=== PATIENT | female | born 1935 | race Caucasian/White ===

== ENCOUNTER 2017-02-06 11:23 | Emergency (ER) | payer BC, OTHER ==
[~2017-02-06] VITALS: Ht 167.6 cm; Wt 81.3 kg
[~2017-02-06 11:23] MED LIST: ACET125T2; CALCTAB5 PO; CHOL2000 PO; IRBE1TAB50 PO; LZL/125 PO; METO100T14 PO; PLN/10 PO; PRED1SUS3 OPL; TRAZ50TA35 PO
[2017-02-06 11:26] VITALS: TEMP 36.4; Ht 167.6 cm; Wt 81.3 kg
[2017-02-06] MEDS ORDERED: CALC-354 PO (11:37)
[2017-02-06] MEDS ORDERED: IRBE1TAB50 PO (11:37)
[2017-02-06] MEDS ORDERED: CHOL20007 PO (11:37)
[2017-02-06] MEDS ORDERED: INDA1TAB3 PO (11:37)
[2017-02-06] MEDS ORDERED: PLN/10 PO (11:37)
[2017-02-06] MEDS ORDERED: ACET325T96 PO (11:37)
[2017-02-06] MEDS ORDERED: TRAZ50TA35 PO (11:37)
[2017-02-06] MEDS ORDERED: METO-596 PO (11:37)
[2017-02-06] MEDS ORDERED: SODIUM CHLORIDE 0.9% 1000ML 1,000 ML IV STA (11:51)
--- NOTE | 2017-02-06 12:15 | DIAGNOSTIC IMAGING REPORT ---
CHEST ONE VIEW PORTABLE CLINICAL HISTORY: 81 years-old Female presenting with CHEST PAIN. TECHNIQUE: Portable upright AP view of the chest was obtained. COMPARISON: None. FINDINGS: Atherosclerosis of aortic arch. Mild enlargement of the cardiac silhouette. Apparent bibasilar density likely relates to overlying soft tissue. No convincing evidence of a focal infiltrate. No large effusion or pneumothorax. Osseous structures normal. Upper abdomen normal. IMPRESSION: 1. Suggestion of mild cardiomegaly. No other evidence of acute cardiopulmonary disease. Electronically signed by: Abhilash Muro M.D. 02/06/2017 12:14 PM Dictated Date/Time: 02/06/2017 12:12 PM
[2017-02-06 12:18] VITALS: O2SAT 98
--- NOTE | 2017-02-06 12:28 | EMERGENCY ROOM VISIT NOTE ---
History Report prepared by Hero: Lucian Saldaña Under the Supervision of: Dr. Herson Castaneda M.D. First contact with patient: 11:46 Chief Complaint: HYPERTENSION Stated Complaint: TANNER, DIZZY, ELEVATED BP, LWR ABD. PAIN/DISCOMFORT History of Present Illness The patient is an 81 year old female who presents to the Emergency Room with complaints of constant hypertension for the past few days. The patient additionally states that she has a headache, light headedness, abdominal pain, and some urinary frequency. The patient denies any chest pain, cough fevers, chills, nausea, vomiting, urinary burning, chest pain, shortness of breath, congestion, and diarrhea. The patient states that she is not on any blood thinners, and she states that she has not missed any medications. The patient states that she has a history of hypertension. She states that when she stands up she gets a little dizzy, and years ago she was diagnosed with benign positional vertigo, though she did not take any medications for it. The patient states that she has been eating and drinking well recently. The patient denies any vaginal symptoms, and she states she has no history of UTIs. Source of History: patient Onset: a few days ago Position: other (global) Quality: other (hypertension) Timing: constant Associated Symptoms: + headache, + abdominal pain Note: Associated symptoms: light headedness and urinary frequency. Review of Systems See HPI for pertinent positives and negatives. A total of ten systems were reviewed and were otherwise negative. Past Medical & Surgical Medical Problems: (1) Bowel obstruction (2) HTN (hypertension) (3) Leaky heart valve Surgical Problems: (1) H/O laminectomy Family History Cancer Diabetes mellitus Hypertension Lung disease Social History Smoking Status: Never Smoker Housing Status: lives alone Occupation Status: retired Current/Historical Medications Scheduled Calcium Carbonate-Cholecalcife (Caltrate 600+D), 1 TAB PO QPM Cholecalciferol (Vitamin D3), 2,000 UNITS PO QAM Ciprofloxacin (Ciprofloxacin HCl), 1 TAB PO BID Felodipine (Felodipine ER), 10 MG PO QAM Indapamide (Lozol), 1.25 MG PO QAM Irbesartan (Irbesartan), 300 MG PO QAM Metoprolol Tartrate (Lopressor), 100 MG PO BID Metronidazole (Flagyl), 500 MG PO QID Trazodone Hcl (Trazodone), 50 MG PO HS Scheduled PRN Acetaminophen Tab (Tylenol), 325-650 MG PO DAILY PRN for ARTHRITIS Allergies Coded Allergies: Penicillins (Verified Allergy, Unknown, HIVES, 02/06/17) Physical Exam Vital Signs Date Time Temp Pulse Resp B/P (MAP) Pulse Ox O2 Delivery O2 Flow Rate FiO2 02/06/17 21:00 88 20 180/100 98 02/06/17 18:52 99 20 181/115 95 Room Air 02/06/17 17:52 91 20 182/102 97 Room Air 02/06/17 15:31 169/107 02/06/17 15:26 145/99 02/06/17 14:23 94 97 02/06/17 14:18 88 18 157/93 98 Room Air 02/06/17 14:01 157/93 02/06/17 13:53 88 21 93 02/06/17 13:31 159/95 02/06/17 13:01 158/91 02/06/17 12:53 88 19 95 02/06/17 12:51 88 18 146/96 98 Room Air 02/06/17 12:48 146/96 02/06/17 12:25 78 02/06/17 12:18 98 Room Air 02/06/17 11:26 36.4 101 24 210/118 94 Room Air Physical Exam GENERAL: Awake, alert, well-appearing, in no distress HENT: Mucous membranes. Normocephalic, atraumatic. Oropharynx unremarkable. EYES: Normal conjunctiva. Sclera non-icteric. NECK: Supple. No nuchal rigidity. FROM. No JVD. RESPIRATORY: Clear to auscultation. CARDIAC: Regular rate, normal rhythm. Extremities warm and well perfused. Pulses equal. ABDOMEN: Mild suprapubic tenderness and fullness. Soft, non-distended. No rebound or guarding. No masses. RECTAL: Deferred. MUSCULOSKELETAL: Chest examination reveals no tenderness. The back is symmetrical on inspection without obvious abnormality. There is no CVA tenderness to palpation. No joint edema. LOWER EXTREMITIES: Calves are equal size bilaterally and non-tender. No edema. No discoloration. NEURO: Cranial nerves 2-12 intact. Cerebellar including finger to nose and alternating palms are intact. Equivocal Romberg's. Normal sensorium. No sensory or motor deficits noted. SKIN: No rash or jaundice noted. Medical Decision & Procedures ER Provider Diagnostic Interpretation: Radiology results as stated below per my review and radiologist interpretation: CT HEAD WITHOUT CONTRAST (CT) CLINICAL HISTORY: headache/dizzy HYPERTENSION COMPARISON STUDY: No previous studies for comparison. TECHNIQUE: Axial CT of the brain is performed from the vertex to the skull base. IV contrast was not administered for this examination. A dose lowering technique was utilized adhering to the principles of ALARA. CT DOSE: 537.48 mGy.cm FINDINGS: No intra or extra-axial mass lesions are visualized. There is no CT evidence of acute cortical infarction. There is no evidence of midline shift. There is no acute hemorrhage. No calvarial fractures are visualized. There are moderate white matter hypodensities likely on a small vessel basis. There is no evidence of pathologic ventricular dilatation. There is no evidence of acute sinusitis IMPRESSION: No acute intracranial findings Electronically signed by: Herbert Sandoval M.D. 02/06/2017 12:44 PM Dictated Date/Time: 02/06/2017 12:43 PM CHEST ONE VIEW PORTABLE CLINICAL HISTORY: 81 years-old Female presenting with CHEST PAIN. TECHNIQUE: Portable upright AP view of the chest was obtained. COMPARISON: None. FINDINGS: Atherosclerosis of aortic arch. Mild enlargement of the cardiac silhouette. Apparent bibasilar density likely relates to overlying soft tissue. No convincing evidence of a focal infiltrate. No large effusion or pneumothorax. Osseous structures normal. Upper abdomen normal. IMPRESSION: 1. Suggestion of mild cardiomegaly. No other evidence of acute cardiopulmonary disease. Electronically signed by: Abhilash Muro M.D. 02/06/2017 12:14 PM Dictated Date/Time: 02/06/2017 12:12 PM ABD/PELVIS IV CONTRAST ONLY CT DOSE: 590.77 mGy.cm HISTORY: Pain Lower abd pain TECHNIQUE: Multiaxial CT images of the abdomen and pelvis were performed following the use of intravenous contrast. A dose lowering technique was utilized adhering to the principles of ALARA. COMPARISON STUDY: None. FINDINGS: Lung bases are clear. Liver is uniform in appearance. Gallbladder is negative for distention, although several small gallbladder polyps may be present.. Mild cortical scarring of the kidneys. No evidence renal mass or necrosis. Minimal hyperplastic change of the adrenal glands. Pancreas is uniform. Bowel pattern is consistent with that of a mild nonobstructive ileus within the abdomen. Within the pelvis there is evidence for wall thickening of the bulk of the sigmoid colon with mild pericolonic infiltrative change. This appearance is consistent with that of acute sigmoid diverticulitis. No evidence for abscess collection or obstruction. Mild chronic descending colonic diverticulosis. IMPRESSION: 1. Acute sigmoid diverticulitis. 2. Considerable colonic wall thickening, with no evidence for abscess collection or obstructive change. 3. Chronic descending colonic diverticulosis. 4. Mild reactive small bowel ileus. 5. Mild adenomyomatosis of the gallbladder The above report was generated using voice recognition software. It may contain grammatical, syntax or spelling errors. Electronically signed by: Wesley Sanchez M.D. 02/06/2017 4:23 PM Dictated Date/Time: 02/06/2017 4:19 PM Laboratory Results 02/06/17 12:13 Red Blood Count 4.72, Mean Corpuscular Volume 91.1, Mean Corpuscular Hemoglobin 31.8, Mean Corpuscular Hemoglobin Concent 34.9, Mean Platelet Volume 9.1, Neutrophils (%) (Auto) 75.7, Lymphocytes (%) (Auto) 10.9, Monocytes (%) (Auto) 11.2, Eosinophils (%) (Auto) 1.7, Basophils (%) (Auto) 0.3, Neutrophils # (Auto ) 10.00, Lymphocytes # (Auto) 1.44, Monocytes # (Auto) 1.48, Eosinophils # (Auto ) 0.23, Basophils # (Auto) 0.04 02/06/17 12:13 Test 02/06/17 12:13 02/06/17 12:25 White Blood Count 13.22 K/uL (4.8-10.8) Red Blood Count 4.72 M/uL (4.2-5.4) Hemoglobin 15.0 g/dL (12.0-16.0) Hematocrit 43.0 % (37-47) Mean Corpuscular Volume 91.1 fL (80-100) Mean Corpuscular Hemoglobin 31.8 pg (25-34) Mean Corpuscular Hemoglobin Concent 34.9 g/dl (32-36) Platelet Count 313 K/uL (130-400) Mean Platelet Volume 9.1 fL (7.4-10.4) Neutrophils (%) (Auto) 75.7 % Lymphocytes (%) (Auto) 10.9 % Monocytes (%) (Auto) 11.2 % Eosinophils (%) (Auto) 1.7 % Basophils (%) (Auto) 0.3 % Neutrophils # (Auto) 10.00 K/uL (1.4-6.5) Lymphocytes # (Auto) 1.44 K/uL (1.2-3.4) Monocytes # (Auto) 1.48 K/uL (0.11-0.59) Eosinophils # (Auto) 0.23 K/uL (0-0.5) Basophils # (Auto) 0.04 K/uL (0-0.2) RDW Standard Deviation 44.7 fL (36.4-46.3) RDW Coefficient of Variation 13.5 % (11.5-14.5) Immature Granulocyte % (Auto) 0.2 % Immature Granulocyte # (Auto) 0.03 K/uL (0.00-0.02) Anion Gap 6.0 mmol/L (3-11) Est Creatinine Clear Calc Drug Dose 49.1 ml/min Estimated GFR () 64.6 Estimated GFR (Non- 55.8 BUN/Creatinine Ratio 22.2 (10-20) Calcium Level 9.9 mg/dl (8.5-10.1) Total Bilirubin 0.5 mg/dl (0.2-1) Direct Bilirubin 0.1 mg/dl (0-0.2) Aspartate Amino Transf (AST/SGOT) 15 U/L (15-37) Alanine Aminotransferase (ALT/SGPT) 18 U/L (12-78) Alkaline Phosphatase 85 U/L (45-117) Troponin I < 0.015 ng/ml (0-0.045) Total Protein 7.4 gm/dl (6.4-8.2) Albumin 3.9 gm/dl (3.4-5.0) Lipase 159 U/L (73-393) Urine Color YELLOW Urine Appearance CLEAR (CLEAR) Urine pH 7.5 (4.5-7.5) Urine Specific [place] 1.011 (1.000-1.030) Urine Protein 2+ (NEG) Urine Glucose (UA) NEG (NEG) Urine Ketones NEG (NEG) Urine Occult Blood TRACE (NEG) Urine Nitrite NEG (NEG) Urine Bilirubin NEG (NEG) Urine Urobilinogen NEG (NEG) Urine Leukocyte Esterase TRACE (NEG) Urine WBC (Auto) 1-5 /hpf (0-5) Urine RBC (Auto) 0-4 /hpf (0-4) Urine Hyaline Casts (Auto) 1-5 /lpf (0-5) Urine Epithelial Cells (Auto) 5-10 /lpf (0-5) Urine Bacteria (Auto) NEG (NEG) Laboratory results reviewed by me Medications Administered Medications (Trade) Dose Ordered Sig/Luis Route Start Time Stop Time Status Last Admin Dose Admin Sodium Chloride 1,000 ml @ 999 mls/hr Q1H1M STAT IV 02/06/17 11:51 02/06/17 12:51 DC 02/06/17 12:51 999 MLS/HR Ciprofloxacin/ Dextrose (Cipro / D5W) 400 mg NOW STAT IV 02/06/17 17:00 02/06/17 17:01 DC 02/06/17 18:37 400 MG Metronidazole (Flagyl / Nss) 500 mg NOW STAT IV 02/06/17 17:00 02/06/17 17:01 DC 02/06/17 17:53 500 MG Acetaminophen (Tylenol Tab) 1,000 mg NOW STAT PO 02/06/17 18:36 02/06/17 18:37 DC 02/06/17 18:39 1,000 MG Metoprolol Tartrate (Lopressor Tab) 100 mg NOW STAT PO 02/06/17 19:08 02/06/17 19:09 DC 02/06/17 19:44 100 MG ECG Indication: other (hypertension) Rate (beats per minute): 85 Rhythm: normal sinus Findings: no acute ischemic change, left axis deviation, other (LVH) ED Course 1146: The patient was evaluated in room A12. A complete history and physical exam was performed. 1151: Sodium Chloride 1000 ml @ 999 mls/hr IV 1422: I reevaluated the patient, and she was doing well. 1700: Metronidazole 500mg IV, Cipro/ D5W 400mg IV 1704: I reassessed the patient, and I updated her on the findings. Medical Decision I reviewed the patient's past medical history, medications, and the nursing notes as described above. Differential diagnoses include: infection, pneumonia, UTI, dehydration, electrolyte abnormality, ACS, stroke Patient is a 81-year-old woman with a past medical history of hypertension as well as diverticulosis with history of diverticulitis presents emergency department with generalized fatigue, lightheadedness, and lower abdominal fullness per history of present illness. Arrival with the patient is no acute distress, afebrile with stable vital signs. On exam the patient appears clinically dry, with mild lower abdominal tenderness. The patient's chest x-ray , EKG were unremarkable. Troponin negative setting of greater than 6 hours of constant symptoms. WBC slightly elevated at 13. Labs otherwise unremarkable. Patient reassessed and feeling improved after IV fluids BUN/creatinine>20. However still with mild lower abdominal fullness/tenderness to palpation thus CT abdomen and pelvis was done and showed uncomplicated diverticulitis. I discussed with patient options for admission versus discharge and patient was feeling improved and preferred discharge. Thus the patient was given initial dose of IV antibiotics with plan for oral regimen and PCP follow-up. Of note patient reports a remote history of having some mild itching when she took Flagyl in the past but denies any rash or shortness of breath or wheezing. Thus I discussed with the patient that we can attempt Flagyl under observation in the ED and if she tolerates it well, this was unlikely an allergy. This was agreeable and was given IV Flagyl without any symptoms. Findings and plan for follow-up reviewed with patient. Patient agreeable and d/c'd per discharge instructions. Medication Reconcilliation Current Medication List: was personally reviewed by me Blood Pressure Screening Patient's blood pressure: Elevated blood pressure Blood pressure disposition: Referred to PCP Impression Primary Impression: Diverticulitis Scribe Attestation The scribe's documentation has been prepared under my direction and personally reviewed by me in its entirety. I confirm that the note above accurately reflects all work, treatment, procedures, and medical decision making performed by me. Departure Information Dispostion Home / Self-Care Prescriptions Metronidazole (Flagyl) 500 Mg Tab 500 MG PO QID for 10 Days, #40 TAB Prov: Herson Castaneda M.D. 02/06/17 Ciprofloxacin (Ciprofloxacin HCl) 750 Mg Tab 1 TAB PO BID for 10 Days, #20 TABS Prov: Herson Castaneda M.D. 02/06/17 Referrals Tracie RuhsD.OValentina (PCP) Forms HOME CARE DOCUMENTATION FORM, IMPORTANT VISIT INFORMATION, WORK / SCHOOL INSTRUCTIONS Patient Instructions ED Diverticulitis, My [facility] Additional Instructions Please follow up with your primary care physician in the next 1-3 days for reevaluation. Your CT scan showed you have diverticulitis. Otherwise, your exam, lab results, EKG, chest x-ray, and CT scan did not show signs of an emergent condition at this time. Antibiotics as directed. Return to the emergency department for worsening symptoms as described in the accompanying instructions.
[2017-02-06 12:33] LABS: BASO % 0.3 %; BASO ABS # 0.04 K/uL (0-0.2); COMPLETE YES; EOS % 1.7 %; IG% 0.2 %; LYMPH % 10.9 %; LYMPH ABS # 1.44 K/uL (1.2-3.4); MEAN CELL VOLUME 91.1 fL (80-100); MEAN CORPUSCULAR HEMOGLOBIN 31.8 pg (25-34); MEAN CORPUSCULAR HGB CONC 34.9 g/dl (32-36); MEAN PLATELET VOLUME 9.1 fL (7.4-10.4); MONO % 11.2 %; NEUT % 75.7 %; PLATELET COUNT 313 K/uL (130-400); RED BLOOD COUNT 4.72 M/uL (4.2-5.4); WHITE BLOOD COUNT 13.22 K/uL (4.8-10.8)
--- NOTE | 2017-02-06 12:45 | DIAGNOSTIC IMAGING REPORT ---
CT HEAD WITHOUT CONTRAST (CT) CLINICAL HISTORY: headache/dizzy HYPERTENSION COMPARISON STUDY: No previous studies for comparison. TECHNIQUE: Axial CT of the brain is performed from the vertex to the skull base. IV contrast was not administered for this examination. A dose lowering technique was utilized adhering to the principles of ALARA. CT DOSE: 537.48 mGy.cm FINDINGS: No intra or extra-axial mass lesions are visualized. There is no CT evidence of acute cortical infarction. There is no evidence of midline shift. There is no acute hemorrhage. No calvarial fractures are visualized. There are moderate white matter hypodensities likely on a small vessel basis. There is no evidence of pathologic ventricular dilatation. There is no evidence of acute sinusitis IMPRESSION: No acute intracranial findings Electronically signed by: Herbert Sandoval M.D. 02/06/2017 12:44 PM Dictated Date/Time: 02/06/2017 12:43 PM
[2017-02-06 12:50] LABS: URINE APPEARANCE CLEAR (CLEAR); URINE BILIRUBIN NEG (NEG); URINE COLOR YELLOW; URINE NITRITE NEG (NEG); URINE PH 7.5 (4.5-7.5); URINE SPECIFIC GRAVITY 1.011 (1.000-1.030); UROBILINOGEN NEG (NEG); ZZUR CULT IF INDIC CLEAN CATCH NO
[2017-02-06 12:51] LABS: ALT/SGPT 18 U/L (12-78); BLOOD UREA NITROGEN 21 mg/dl (7-18); BUN/CREATININE RATIO 22.2 (10-20); CALCIUM 9.9 mg/dl (8.5-10.1); CARBON DIOXIDE 29 mmol/L (21-32); CHLORIDE 100 mmol/L (98-107); CREATININE 0.95 mg/dl (0.60-1.20); GLUCOSE 126 mg/dl (70-99); POTASSIUM 3.8 mmol/L (3.5-5.1); SODIUM 135 mmol/L (136-145)
[2017-02-06 12:56] LABS: ALKALINE PHOSPHATASE 85 U/L (45-117); AST/SGOT 15 U/L (15-37)
[2017-02-06 12:57] LABS: MANUAL MICROSCOPIC REQUIRED? NO; REVIEW REQ? NO
[2017-02-06 12:58] LABS: SULFASALICYLIC ACID POS (NEG)
[2017-02-06] MEDS ORDERED: OPTIRAY 320 IV PRN (15:00)
--- NOTE | 2017-02-06 16:25 | DIAGNOSTIC IMAGING REPORT ---
ABD/PELVIS IV CONTRAST ONLY CT DOSE: 590.77 mGy.cm HISTORY: Pain Lower abd pain TECHNIQUE: Multiaxial CT images of the abdomen and pelvis were performed following the use of intravenous contrast. A dose lowering technique was utilized adhering to the principles of ALARA. COMPARISON STUDY: None. FINDINGS: Lung bases are clear. Liver is uniform in appearance. Gallbladder is negative for distention, although several small gallbladder polyps may be present.. Mild cortical scarring of the kidneys. No evidence renal mass or necrosis. Minimal hyperplastic change of the adrenal glands. Pancreas is uniform. Bowel pattern is consistent with that of a mild nonobstructive ileus within the abdomen. Within the pelvis there is evidence for wall thickening of the bulk of the sigmoid colon with mild pericolonic infiltrative change. This appearance is consistent with that of acute sigmoid diverticulitis. No evidence for abscess collection or obstruction. Mild chronic descending colonic diverticulosis. IMPRESSION: 1. Acute sigmoid diverticulitis. 2. Considerable colonic wall thickening, with no evidence for abscess collection or obstructive change. 3. Chronic descending colonic diverticulosis. 4. Mild reactive small bowel ileus. 5. Mild adenomyomatosis of the gallbladder The above report was generated using voice recognition software. It may contain grammatical, syntax or spelling errors. Electronically signed by: Wesley Sanchez M.D. 02/06/2017 4:23 PM Dictated Date/Time: 02/06/2017 4:19 PM
[2017-02-06] MEDS ORDERED: CIPROFLOXACIN 400MG / 200ML D5W IV STA (17:00)
[2017-02-06] MEDS ORDERED: METRONIDAZOLE 500MG / 100ML NSS IV STA (17:00)
[2017-02-06] MEDS ORDERED: CPR750 PO (18:22)
[2017-02-06] MEDS ORDERED: METR-163 PO (18:35)
[2017-02-06] MEDS ORDERED: ACETAMINOPHEN 500 MG TAB PO STA (18:36)
[2017-02-06] MEDS ORDERED: METOPROLOL TARTRATE 50 MG TAB PO STA (19:08)
[2017-02-06 21:00] VITALS: BP 180/100; PULSE 88; O2SAT 98
== END 2017-02-06 21:00 | disposition home or self-care (01) ==
LOC: C.EDB 11:25 → C.EDA 21:00
DX: K57.32 Diverticulitis of large intestine without perforation or abscess without bleeding (principal); K57.30 Diverticulosis of large intestine without perforation or abscess without bleeding; I10 Essential (primary) hypertension; R51 Headache; I38 Endocarditis, valve unspecified; R42 Dizziness and giddiness; Z83.3 Family history of diabetes mellitus; Z82.49 Family history of ischemic heart disease and other diseases of the circulatory system

== ENCOUNTER 2017-02-08 20:43 | Emergency (ER) | payer OTHER ==
[~2017-02-08] VITALS: Ht 162.6 cm; Wt 84.7 kg
[~2017-02-08 20:43] MED LIST changes: -ACET125T2; +ACET325T96 PO; +CALC-354 PO; -CALCTAB5 PO; -CHOL2000 PO; +CHOL20007 PO; +CPR750 PO; +INDA1TAB3 PO; -LZL/125 PO; +METO-596 PO; -METO100T14 PO; +METR-163 PO; -PRED1SUS3 OPL
[2017-02-08 20:54] VITALS: TEMP 36.7; Ht 162.6 cm; Wt 84.7 kg
[2017-02-08] MEDS ORDERED: SODIUM CHLORIDE 0.9% 1000ML 1,000 ML IV STA (21:11)
[2017-02-08] MEDS ORDERED: [UNRECOGNIZED DRUG - OTHER] IV STA (21:15)
[2017-02-08] MEDS ORDERED: PREMIXED IV STA (21:15)
[2017-02-08] MEDS ORDERED: MOXIFLOXACIN IV STA (21:15)
[2017-02-08] MEDS ORDERED: CIPROFLOXACIN 500 MG TAB PO STA (21:27)
[2017-02-08 21:34] VITALS: O2SAT 96
--- NOTE | 2017-02-08 21:42 | EMERGENCY ROOM VISIT NOTE ---
History Report prepared by Hero: Leeann Jain Under the Supervision of: Dr. Toby Lau M.D. First contact with patient: 20:48 Chief Complaint: OTHER COMPLAINT Stated Complaint: DIZZY, WEAK History of Present Illness The patient is a 81 year old female who presents to the Emergency Room with complaints of constant dizziness beginning a 2 days ago. The patient states that she was diagnosed with Diverticulitis 2 days ago and was seen here at the beginning of the week. She reports that she was put on Cipro and Flagyl and since she has started the medications she feels like she has been ill. She complains of dizziness, lightheadedness, nausea, and a headache. The patient states that she saw her PCP after she got out of the ED but her symptoms have not improved. She denies any vomiting and abdominal pain. The patient notes that she has a history of diverticulitis and last time she took Flagyl she had a reaction when she was itchy. Source of History: patient Onset: 2 days ago Position: other (global) Quality: other (dizziness) Timing: constant Associated Symptoms: + headache, + nausea, No vomiting, No abdominal pain Note: PT complains of lightheadedness. Review of Systems See HPI for pertinent positives & negatives. A total of 10 systems reviewed and were otherwise negative. Past Medical & Surgical Medical Problems: (1) Bowel obstruction (2) HTN (hypertension) (3) Leaky heart valve Surgical Problems: (1) H/O laminectomy Family History Cancer Diabetes mellitus Hypertension Lung disease Social History Smoking Status: Never Smoker Housing Status: lives alone Occupation Status: retired Current/Historical Medications Scheduled Calcium Carbonate-Cholecalcife (Caltrate 600+D), 1 TAB PO QPM Cholecalciferol (Vitamin D3), 2,000 UNITS PO QAM Ciprofloxacin (Ciprofloxacin HCl), 1 TAB PO BID Felodipine (Felodipine ER), 10 MG PO QAM Indapamide (Lozol), 1.25 MG PO QAM Irbesartan (Irbesartan), 300 MG PO QAM Metoprolol Tartrate (Lopressor), 100 MG PO BID Metronidazole (Flagyl), 500 MG PO QID Ondasetron Odt (Zofran Odt), 4 MG SL Q6H Trazodone Hcl (Trazodone), 50 MG PO HS Scheduled PRN Acetaminophen Tab (Tylenol), 325-650 MG PO DAILY PRN for ARTHRITIS Allergies Coded Allergies: Penicillins (Verified Allergy, Unknown, HIVES, 02/08/17) Physical Exam Vital Signs Date Time Temp Pulse Resp B/P (MAP) Pulse Ox O2 Delivery O2 Flow Rate FiO2 02/08/17 23:42 100 18 171/91 97 02/08/17 22:38 96 02/08/17 21:35 92 18 175/99 96 Room Air 02/08/17 21:34 96 Room Air 02/08/17 21:34 96 Room Air 02/08/17 20:54 36.7 99 18 196/101 95 Room Air Physical Exam GENERAL: Patient is a healthy-appearing well-nourished female HEAD: Normocephalic atraumatic EYES: Ocular movements intact pupils equal and react to light OROPHARYNX mucous membranes are moist no exudates present no erythema or edema present NECK: Supple no nuchal rigidity CHEST: Good equal expansion LUNGS: Clear and equal to auscultation CARDIAC: Normal S1 and S2 ABDOMEN: Soft nontender no guarding BACK: No CVA tenderness EXTREMITIES: No pain upon palpation normal muscle strength in all groups no clubbing cyanosis or edema NEURO: Patient is following commands and answering questions appropriately. Alert and oriented x3 Cranial Nerves 2-12 grossly intact Medical Decision & Procedures ER Provider Diagnostic Interpretation: X-ray results as stated below per interpretation by me and the radiologist: ABDOMEN 2VIEW W/PA CHEST RTN FINDINGS: Moderate stable cardiomegaly. Bibasilar atelectasis. Mild generalized nonobstructive ileus. Multiple pelvic vascular calcifications. IMPRESSION: Mild stable cardiomegaly.. 2. Mild bibasilar atelectasis. 3. Mild nonobstructive ileus. The above report was generated using voice recognition software. It may contain grammatical, syntax or spelling errors. Electronically signed by: Wesley Sanchez M.D. 02/08/2017 10:22 PM Dictated Date/Time: 02/08/2017 10:21 PM Laboratory Results 02/08/17 21:50 Red Blood Count 4.45, Mean Corpuscular Volume 88.8, Mean Corpuscular Hemoglobin 31.0, Mean Corpuscular Hemoglobin Concent 34.9, Mean Platelet Volume 8.8, Neutrophils (%) (Auto) 57.5, Lymphocytes (%) (Auto) 23.8, Monocytes (%) (Auto) 16.2, Eosinophils (%) (Auto) 2.0, Basophils (%) (Auto) 0.4, Neutrophils # (Auto ) 4.25, Lymphocytes # (Auto) 1.76, Monocytes # (Auto) 1.20, Eosinophils # (Auto ) 0.15, Basophils # (Auto) 0.03 02/08/17 21:50 Test 02/08/17 21:50 02/08/17 22:36 White Blood Count 7.40 K/uL (4.8-10.8) Red Blood Count 4.45 M/uL (4.2-5.4) Hemoglobin 13.8 g/dL (12.0-16.0) Hematocrit 39.5 % (37-47) Mean Corpuscular Volume 88.8 fL (80-100) Mean Corpuscular Hemoglobin 31.0 pg (25-34) Mean Corpuscular Hemoglobin Concent 34.9 g/dl (32-36) Platelet Count 299 K/uL (130-400) Mean Platelet Volume 8.8 fL (7.4-10.4) Neutrophils (%) (Auto) 57.5 % Lymphocytes (%) (Auto) 23.8 % Monocytes (%) (Auto) 16.2 % Eosinophils (%) (Auto) 2.0 % Basophils (%) (Auto) 0.4 % Neutrophils # (Auto) 4.25 K/uL (1.4-6.5) Lymphocytes # (Auto) 1.76 K/uL (1.2-3.4) Monocytes # (Auto) 1.20 K/uL (0.11-0.59) Eosinophils # (Auto) 0.15 K/uL (0-0.5) Basophils # (Auto) 0.03 K/uL (0-0.2) RDW Standard Deviation 41.3 fL (36.4-46.3) RDW Coefficient of Variation 12.8 % (11.5-14.5) Immature Granulocyte % (Auto) 0.1 % Immature Granulocyte # (Auto) 0.01 K/uL (0.00-0.02) Anion Gap 9.0 mmol/L (3-11) Est Creatinine Clear Calc Drug Dose 50.8 ml/min Estimated GFR () 69.0 Estimated GFR (Non- 59.5 BUN/Creatinine Ratio 15.8 (10-20) Calcium Level 9.8 mg/dl (8.5-10.1) Total Bilirubin 0.7 mg/dl (0.2-1) Direct Bilirubin 0.2 mg/dl (0-0.2) Aspartate Amino Transf (AST/SGOT) 22 U/L (15-37) Alanine Aminotransferase (ALT/SGPT) 20 U/L (12-78) Alkaline Phosphatase 72 U/L (45-117) Total Creatine Kinase 151 U/L (26-192) Creatine Kinase MB 2.1 ng/ml (0.5-3.6) Creatine Kinase MB Ratio 1.4 (0-3.0) Troponin I < 0.015 ng/ml (0-0.045) Total Protein 6.8 gm/dl (6.4-8.2) Albumin 3.6 gm/dl (3.4-5.0) Lipase 105 U/L (73-393) Urine Color YELLOW Urine Appearance CLEAR (CLEAR) Urine pH 7.0 (4.5-7.5) Urine Specific [place] 1.011 (1.000-1.030) Urine Protein 2+ (NEG) Urine Glucose (UA) NEG (NEG) Urine Ketones NEG (NEG) Urine Occult Blood TRACE (NEG) Urine Nitrite NEG (NEG) Urine Bilirubin NEG (NEG) Urine Urobilinogen NEG (NEG) Urine Leukocyte Esterase NEG (NEG) Urine WBC (Auto) 1-5 /hpf (0-5) Urine RBC (Auto) 0-4 /hpf (0-4) Urine Hyaline Casts (Auto) 1-5 /lpf (0-5) Urine Epithelial Cells (Auto) 5-10 /lpf (0-5) Urine Bacteria (Auto) NEG (NEG) Labs reviewed by ED physician. Medications Administered Medications (Trade) Dose Ordered Sig/Luis Route Start Time Stop Time Status Last Admin Dose Admin Sodium Chloride 1,000 ml @ 999 mls/hr Q1H1M STAT IV 02/08/17 21:11 02/08/17 22:11 DC 02/08/17 22:41 999 MLS/HR Ciprofloxacin (Cipro Tab) 500 mg NOW STAT PO 02/08/17 21:27 02/08/17 21:28 DC 9/13/17 22:44 500 MG Ondansetron HCl (Zofran Odt) 4 mg ONE STAT PO 02/08/17 22:59 02/08/17 23:00 DC 02/08/17 23:29 4 MG Potassium Chloride (Georgette Ciel Elix) 40 meq NOW STAT PO 02/08/17 23:08 02/08/17 23:09 DC 02/08/17 23:29 40 MEQ Ondansetron HCl (ZOFRAN ODT 4MG Home Pack) 1 homepack UD STAT PO 02/08/17 23:17 02/08/17 23:18 DC 02/08/17 23:29 1 HOMEPACK ECG Indication: weakness Rate (beats per minute): 94 Rhythm: normal sinus Findings: no acute ischemic change, no ectopy ED Course 2047: Past medical records reviewed. The patient was evaluated in room B7. A complete history and physical examination was performed. 2110: Sodium Chloride 1000 ml @ 999 mls/hr IV. 2114: Moxifloxacin/Sodium Chloride 400mg/Prmx 250ml @ 250mls/hr IV. 2126: Cipro Tab 500mg PO. 2259: Zofran Odt 4mg PO, Potassium Chloride 80meq PO. 2308: Potassium Chloride 40meq PO. 2317: Ondansetron HCl 1 homepack PO. 2324: Upon reexamination the patient is doing well. I discussed results and treatment plan with the patient. She verbalizes agreement and understanding. The patient is ready for discharge. Medical Decision Differential diagnosis: Etiologies such as appendicitis, diverticulitis, PUD, biliary pathology, UTI, pancreatitis, obstruction, mesenteric ischemia, aortic pathology, infections, inflammatory bowel disease, renal colic, as well as others were entertained. This is an 81-year-old female who presents emergency department with what appears to be a lot of anxiety about taking both Cipro and Flagyl for her diverticulitis. The patient has had an abnormal reaction to Flagyl in the past and she appears to be more concerned about taking the Flagyl that the diverticulitis. I will note that the patient has a soft nontender abdominal examination. Serial abdominal examinations were performed on the patient in the emergency department. In addition the patient does not have an elevation in her white blood count cell count and it is actually improving. The patient appears more anxious than anything and was relieved to find out that she will could go home. Her blood pressure fell without me doing anything. I encouraged patient to continue taking Cipro and referred her to a lumber trimmer. Patient was in agreement with the treatment plan. Medication Reconcilliation Current Medication List: was personally reviewed by me Blood Pressure Screening Patient's blood pressure: Elevated blood pressure Blood pressure disposition: Referred to PCP Impression Primary Impression: HTN (hypertension) Scribe Attestation The scribe's documentation has been prepared under my direction and personally reviewed by me in its entirety. I confirm that the note above accurately reflects all work, treatment, procedures, and medical decision making performed by me. Departure Information Dispostion Home / Self-Care Prescriptions Ondasetron Odt (ZOFRAN ODT) 4 Mg Tab 4 MG SL Q6H for Nausea, #6 TAB Prov: Toby Lau MD 02/08/17 Referrals Tracie RushD.OValentina (PCP) Forms HOME CARE DOCUMENTATION FORM, IMPORTANT VISIT INFORMATION, WORK / SCHOOL INSTRUCTIONS Patient Instructions My [facility] Additional Instructions Follow up with Dr Rush's office Continue taking CIPRO STOP taking Flagyl Follow up with Dr Frazier's office You have been examined and treated today on an emergency basis only. This is not a substitute for, or an effort to provide, complete comprehensive medical care. It is impossible to recognize and treat all injuries or illnesses in a single emergency department visit. It is therefore important that you follow up closely with Dr Rush. Call as soon as possible for an appointment. Thank you for your time and consideration. I look forward to speaking with you again soon. Please don't hesitate to call us if you have any questions. Problem Qualifiers Primary Impression: HTN (hypertension) Hypertension type: unspecified Qualified Codes: I10 - Essential (primary) hypertension
[2017-02-08 22:05] LABS: BASO % 0.4 %; BASO ABS # 0.03 K/uL (0-0.2); COMPLETE YES; HEMATOCRIT 39.5 % (37-47); IG% 0.1 %; LYMPH % 23.8 %; LYMPH ABS # 1.76 K/uL (1.2-3.4); MEAN CELL VOLUME 88.8 fL (80-100); MEAN CORPUSCULAR HGB CONC 34.9 g/dl (32-36); MEAN PLATELET VOLUME 8.8 fL (7.4-10.4); MONO % 16.2 %; NEUT % 57.5 %; PLATELET COUNT 299 K/uL (130-400); RED BLOOD COUNT 4.45 M/uL (4.2-5.4)
--- NOTE | 2017-02-08 22:24 | DIAGNOSTIC IMAGING REPORT ---
ABDOMEN 2VIEW W/PA CHEST RTN CLINICAL HISTORY: Pt c/o diffuse abd pain pain COMPARISON STUDY: 02/06/2017 FINDINGS: Moderate stable cardiomegaly. Bibasilar atelectasis. Mild generalized nonobstructive ileus. Multiple pelvic vascular calcifications. IMPRESSION: Mild stable cardiomegaly.. 2. Mild bibasilar atelectasis. 3. Mild nonobstructive ileus. The above report was generated using voice recognition software. It may contain grammatical, syntax or spelling errors. Electronically signed by: Wesley Sanchez M.D. 02/08/2017 10:22 PM Dictated Date/Time: 02/08/2017 10:21 PM
[2017-02-08 22:47] LABS: BLOOD UREA NITROGEN 14 mg/dl (7-18); BUN/CREATININE RATIO 15.8 (10-20); CARBON DIOXIDE 27 mmol/L (21-32); CHLORIDE 92 mmol/L (98-107); GLUCOSE 113 mg/dl (70-99); SODIUM 128 mmol/L (136-145)
[2017-02-08 22:48] LABS: ALKALINE PHOSPHATASE 72 U/L (45-117); ALT/SGPT 20 U/L (12-78); AST/SGOT 22 U/L (15-37); CALCIUM 9.8 mg/dl (8.5-10.1); CKMB/CK RATIO 1.4 (0-3.0)
[2017-02-08] MEDS ORDERED: ONDANSETRON 4MG OD TAB PO STA (22:59)
[2017-02-08] MEDS ORDERED: POTASSIUM CHLORIDE 10 MEQ TABCR PO STA (22:59)
[2017-02-08] MEDS ORDERED: POTASSIUM CHLORIDE 20 MEQ/15 ML UDC PO STA (23:08)
[2017-02-08] MEDS ORDERED: ONDANSETRON HOME PACK 4MG OD TAB PO STA (23:17)
[2017-02-08] MEDS ORDERED: ONDA4TAB10 SL (23:17)
[2017-02-08 23:21] LABS: URINE APPEARANCE CLEAR (CLEAR); URINE BILIRUBIN NEG (NEG); URINE COLOR YELLOW; URINE NITRITE NEG (NEG); URINE SPECIFIC GRAVITY 1.011 (1.000-1.030); UROBILINOGEN NEG (NEG)
[2017-02-08 23:29] LABS: MANUAL MICROSCOPIC REQUIRED? NO; REVIEW REQ? NO
[2017-02-08 23:42] VITALS: BP 171/91; PULSE 100; O2SAT 97
== END 2017-02-08 23:43 | disposition home or self-care (01) ==
LOC: EDBD 20:43 → C.EDB 20:44
DX: I10 Essential (primary) hypertension (principal); K57.92 Diverticulitis of intestine, part unspecified, without perforation or abscess without bleeding; Z80.9 Family history of malignant neoplasm, unspecified; Z83.3 Family history of diabetes mellitus; Z82.49 Family history of ischemic heart disease and other diseases of the circulatory system; Z83.6 Family history of other diseases of the respiratory system; Z79.899 Other long term (current) drug therapy

== ENCOUNTER 2017-03-14 09:51 | Emergency (ER) | payer OTHER ==
[~2017-03-14] VITALS: Ht 161.3 cm; Wt 79.2 kg
[~2017-03-14 09:51] MED LIST changes: -METR-163 PO; +ONDA4TAB10 SL
[2017-03-14 09:58] VITALS: TEMP 36.6; Ht 161.3 cm; Wt 79.2 kg
[2017-03-14] MEDS ORDERED: ONDANSETRON INJ 2 MG/ML 2 ML VIAL IV STA (10:05)
[2017-03-14] MEDS ORDERED: SODIUM CHLORIDE 0.9% 1000ML 500 ML IV STA (10:05)
[2017-03-14] MEDS ORDERED: MoRPHine SULFATE 4 MG/ML 1 ML CARP\\VIAL IV PRN (10:15)
--- NOTE | 2017-03-14 10:17 | EMERGENCY ROOM VISIT NOTE ---
History Report prepared by Hero: Sarah Rowe Under the Supervision of: Dr. Kris Griffith M.D. First contact with patient: 10:03 Chief Complaint: ABDOMINAL PAIN Stated Complaint: AB PAIN Nursing Triage Summary: Pt c/o abd pain, pt states it started last evening, felt like gas, hasn't subsided hx of diverticulitis History of Present Illness The patient is an 81 year old female who presents to the Emergency Room with complaints of persistent diffuse abdominal pain that began last evening around 2100. She currently rates her discomfort as a 7/10 in severity. The patient states that one month ago she was evaluated in the emergency department and diagnosed with diverticulitis. She states that she was started on Cipro and Flagyl and sent home. The patient states that she became sick from the antibiotics and states that she was taken off the Flagyl but continued the Cipro and her infection cleared. The patient states that last evening she began to feel her abdomen fill with gas, noting that she felt bloated. She states that she tried lying down and states that she fell asleep for 45 minutes. The patient states that she woke with worsened pain. She states that she urinated, but then developed urinary frequency and burning. The patient denies any history of bladder infections. She states that her pain is worsened with movement, noting that when she moved her right leg up this morning she developed a shooting pain. The patient additionally reports a history of a bowel obstruction. She denies any history of a surgical colon resection. The patient states that she had a normal bowel movement this morning. She denies any vomiting, back pain, or diarrhea. Source of History: patient Onset: last evening around 2100 Position: abdomen (diffuse) Symptom Intensity: 7/10 Quality: other (shooting, gas) Timing: other (persistent) Modifying Factors (Worsening): movement Associated Symptoms: + urinary symptoms (burning and frequency), No vomiting , No back pain, No diarrhea Review of Systems See HPI for pertinent positives & negatives. A total of 10 systems reviewed and were otherwise negative. Past Medical & Surgical Medical Problems: (1) Bowel obstruction (2) HTN (hypertension) (3) Leaky heart valve Surgical Problems: (1) H/O laminectomy Family History Cancer Diabetes mellitus Hypertension Lung disease Social History Smoking Status: Former Smoker Housing Status: lives alone Occupation Status: retired Current/Historical Medications Scheduled Calcium Carbonate-Cholecalcife (Caltrate 600+D), 1 TAB PO QPM Cholecalciferol (Vitamin D3), 2,000 UNITS PO QAM Felodipine (Felodipine ER), 10 MG PO QAM Indapamide (Lozol), 1.25 MG PO QAM Irbesartan (Irbesartan), 300 MG PO QAM Metoprolol Tartrate (Lopressor), 100 MG PO BID Moxifloxacin Hcl (Avelox), 1 TAB PO DAILY Trazodone Hcl (Trazodone), 50 MG PO HS Allergies Coded Allergies: Penicillins (Verified Allergy, Unknown, HIVES, 03/14/17) Ciprofloxacin (Unverified Adverse Reaction, Severe, "MADE ME DEATHLY ILL" , 03/14/17) Metronidazole (Unverified Adverse Reaction, Severe, "MADE ME DEATHLY ILL" , 03/14/17) Physical Exam Vital Signs Date Time Temp Pulse Resp B/P (MAP) Pulse Ox O2 Delivery O2 Flow Rate FiO2 03/14/17 12:40 95 18 157/93 96 Room Air 03/14/17 10:49 83 18 160/90 98 Room Air 03/14/17 09:58 36.6 84 20 210/137 96 Room Air Physical Exam GENERAL: Patient is in no acute distress. HEENT: No acute trauma, normocephalic atraumatic, mucous membranes moist, no nasal congestion, no scleral icterus. NECK: No stridor, no adenopathy, no meningismus, trachea is midline. LUNGS: Clear to auscultation bilaterally, no wheeze, no rhonchi, breath sounds equal. HEART: Without murmurs gallops or rubs, regular rate and rhythm. ABDOMEN: Soft, Moderately tender in the left lower quadrant, bowel sounds positive, small reducible nontender umbilical hernia, no peritonitis. EXTREMITIES: No cyanosis or edema, full range of motion of all the joints without pain or difficulty, no signs for acute trauma. NEUROLOGIC: Oriented x 3, no acute motor or sensory deficits, no focal weakness. SKIN: No rash, no jaundice, no diaphoresis. Medical Decision & Procedures ER Provider Diagnostic Interpretation: CT results as stated below per my review and radiologist interpretation: CT SCAN OF THE ABDOMEN AND PELVIS WITH IV CONTRAST CLINICAL HISTORY: Left lower quadrant abdominal pain. COMPARISON STUDY: Abdominal CT dated 02/06/2017. TECHNIQUE: Following the IV administration of 92 cc of Optiray 320, CT scan of the abdomen and pelvis is performed from the lung bases to the proximal femora. Images are reviewed in the axial, sagittal, and coronal planes. IV contrast was administered without complication. A dose lowering technique was utilized adhering to the principles of ALARA. CT DOSE: 521.02 mGy.cm FINDINGS: Lung bases: The heart is enlarged and without pericardial effusion. There are small bilateral fat-containing Bochdalek hernias. No airspace consolidation or pleural effusion is identified at the lung bases. Liver: The contrast-enhanced liver is normal in size, contour, and attenuation. There is no intrahepatic biliary ductal dilatation. The hepatic veins and portal veins are patent. Calcifications are again noted in the left hepatic lobe. Gallbladder: Unremarkable. Spleen: Normal in size and attenuation. Pancreas: Atrophic and grossly unremarkable. Adrenal glands: Unremarkable. Kidneys: The contrast enhanced kidneys demonstrate cortical atrophy and are without hydronephrosis. The kidneys enhance symmetrically. A subcentimeter cortical hypodensity in the left lower pole likely represents a cyst but is too small for definitive characterization. Abdominal vasculature: The abdominal aorta is normal in course and caliber noting advanced atherosclerotic calcification. 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 Bowel: There is advanced colonic diverticulosis. There is mild pericolonic infiltration seen involving the sigmoid colon the left pelvis on axial image #270. The appearance suggests mild acute sigmoid diverticulitis. There is no evidence of diverticular abscess. Diffuse sigmoid wall thickening is likely related to chronic diverticular disease. No bowel obstruction is seen. The appendix is not identified and reported surgically absent. Peritoneum: There is no intraperitoneal free air or abdominal ascites. There is a fat-containing umbilical hernia. Lymphadenopathy: None. Pelvic viscera: The bladder, uterus, and adnexa are normal as visualized. Skeletal structures: The skeletal structures are osteopenic. There is mild lumbosacral spondylosis scoliosis. 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 No lytic or blastic lesions are seen. IMPRESSION: 1. There is advanced colonic diverticulosis with evidence of mild acute sigmoid diverticulitis. No intraperitoneal free air is seen and there is no evidence of diverticular abscess. 2. Cardiomegaly. 3. Additional findings as above. Electronically signed by: Kris Douglass M.D. 03/14/2017 12:19 PM Dictated Date/Time: 03/14/2017 12:11 PM Laboratory Results 03/14/17 10:30 Red Blood Count 4.47, Mean Corpuscular Volume 90.8, Mean Corpuscular Hemoglobin 29.3, Mean Corpuscular Hemoglobin Concent 32.3, Mean Platelet Volume 8.8, Neutrophils (%) (Auto) 71.6, Lymphocytes (%) (Auto) 16.9, Monocytes (%) (Auto) 9.3, Eosinophils (%) (Auto) 1.4, Basophils (%) (Auto) 0.6, Neutrophils # (Auto) 6.32, Lymphocytes # (Auto) 1.49, Monocytes # (Auto) 0.82, Eosinophils # (Auto) 0.12, Basophils # (Auto) 0.05 03/14/17 10:30 Test 03/14/17 10:30 03/14/17 10:46 White Blood Count 8.82 K/uL (4.8-10.8) Red Blood Count 4.47 M/uL (4.2-5.4) Hemoglobin 13.1 g/dL (12.0-16.0) Hematocrit 40.6 % (37-47) Mean Corpuscular Volume 90.8 fL (80-100) Mean Corpuscular Hemoglobin 29.3 pg (25-34) Mean Corpuscular Hemoglobin Concent 32.3 g/dl (32-36) Platelet Count 319 K/uL (130-400) Mean Platelet Volume 8.8 fL (7.4-10.4) Neutrophils (%) (Auto) 71.6 % Lymphocytes (%) (Auto) 16.9 % Monocytes (%) (Auto) 9.3 % Eosinophils (%) (Auto) 1.4 % Basophils (%) (Auto) 0.6 % Neutrophils # (Auto) 6.32 K/uL (1.4-6.5) Lymphocytes # (Auto) 1.49 K/uL (1.2-3.4) Monocytes # (Auto) 0.82 K/uL (0.11-0.59) Eosinophils # (Auto) 0.12 K/uL (0-0.5) Basophils # (Auto) 0.05 K/uL (0-0.2) RDW Standard Deviation 45.5 fL (36.4-46.3) RDW Coefficient of Variation 13.7 % (11.5-14.5) Immature Granulocyte % (Auto) 0.2 % Immature Granulocyte # (Auto) 0.02 K/uL (0.00-0.02) Urine Color YELLOW Urine Appearance CLEAR (CLEAR) Urine pH 7.5 (4.5-7.5) Urine Specific [place] 1.015 (1.000-1.030) Urine Protein 2+ (NEG) Urine Glucose (UA) NEG (NEG) Urine Ketones NEG (NEG) Urine Occult Blood TRACE (NEG) Urine Nitrite NEG (NEG) Urine Bilirubin NEG (NEG) Urine Urobilinogen NEG (NEG) Urine Leukocyte Esterase NEG (NEG) Urine WBC (Auto) 0 /hpf (0-5) Urine RBC (Auto) 0-4 /hpf (0-4) Urine Hyaline Casts (Auto) 1-5 /lpf (0-5) Urine Epithelial Cells (Auto) 10-20 /lpf (0-5) Urine Bacteria (Auto) NEG (NEG) Anion Gap 9.0 mmol/L (3-11) Est Creatinine Clear Calc Drug Dose 46.0 ml/min Estimated GFR () 64.6 Estimated GFR (Non- 55.8 BUN/Creatinine Ratio 24.7 (10-20) Calcium Level 9.9 mg/dl (8.5-10.1) Total Bilirubin 0.5 mg/dl (0.2-1) Aspartate Amino Transf (AST/SGOT) 15 U/L (15-37) Alanine Aminotransferase (ALT/SGPT) 18 U/L (12-78) Alkaline Phosphatase 80 U/L (45-117) Total Protein 7.4 gm/dl (6.4-8.2) Albumin 4.0 gm/dl (3.4-5.0) Globulin 3.4 gm/dl (2.5-4.0) Albumin/Globulin Ratio 1.2 (0.9-2) Lipase 135 U/L (73-393) Lactic Acid Level 1.0 mmol/L (0.4-2.0) Laboratory results reviewed by me. Medications Administered Medications (Trade) Dose Ordered Sig/Luis Route Start Time Stop Time Status Last Admin Dose Admin Sodium Chloride 500 ml @ 999 mls/hr Q31M STAT IV 03/14/17 10:05 03/14/17 10:35 DC 03/14/17 10:33 999 MLS/HR Ondansetron HCl (Zofran Inj) 4 mg NOW STAT IV 03/14/17 10:05 03/14/17 10:15 DC 03/14/17 10:34 4 MG Morphine Sulfate (MoRPHine SULFATE INJ) 4 mg Q30M PRN IV 03/14/17 10:15 03/14/17 13:20 DC 03/14/17 10:34 4 MG ED Course 1004: The patient was evaluated in room C4. A complete history and physical exam was performed. 1005: Ordered Zofran Inj 4 mg IV, Sodium Chloride 500 ml @ 999 mls/hr IV. 1015: Ordered Morphine Sulfate 4 mg IV. 1232: I reevaluated the patient and she is resting comfortably. I discussed the exam findings with her and I discussed the treatment plan. She verbalized complete understanding and agreement. She is ready to go home. Medical Decision The patient is an 81 year old female who presents to the ED with complaints of abdominal pain. Differential diagnoses considered include Diverticulitis, UTI, abscess, bowel obstruction, appendicitis, pancreatitis, hernia, musculoskeletal pain. There is no leukocytosis or worrisome anemia. No significant electrolyte abnormality, kidney failure or hepatitis. No evidence for pancreatitis. Urinalysis does not show infection. Lactic acid level is not elevated making bowel ischemia less likely. Abdominal and pelvis CT shows a mild case of diverticulitis, no abscess. On exam, the patient was not toxic or febrile, there was no peritonitis. The patient received IV morphine for pain, IV Zofran for nausea. She was given IV saline. The patient cannot tolerate penicillin and does not tolerate Flagyl. She did not like Cipro, it made her feel sick in her stomach. I did some research on up to date. The patient can take moxifloxacin daily for a week as an alternative medication for diverticulitis. I will try this. A prescription was given to the patient. If she is worsening or not improving, she needs to return. Follow up with her doctors office this week was suggested. Medication Reconcilliation Current Medication List: was personally reviewed by me Blood Pressure Screening Patient's blood pressure: Elevated blood pressure Blood pressure disposition: Elevated BP felt to be situational Impression Primary Impression: Diverticulitis Scribe Attestation The scribe's documentation has been prepared under my direction and personally reviewed by me in its entirety. I confirm that the note above accurately reflects all work, treatment, procedures, and medical decision making performed by me. Departure Information Dispostion Home / Self-Care Prescriptions Moxifloxacin Hcl (AVELOX) 400 Mg Tab 1 TAB PO DAILY for 7 Days, #7 TAB Prov: Kris Griffith M.D. 03/14/17 Referrals Tracie Rush D.OValentina (PCP) Forms HOME CARE DOCUMENTATION FORM, IMPORTANT VISIT INFORMATION Patient Instructions My [facility] Additional Instructions moxifloxicin daily for 1 week otc pain meds as needed see ketan hdez this week return if worsening or have fever as we discussed
[2017-03-14] MEDS ORDERED: OPTIRAY 320 IV PRN (10:30)
[2017-03-14 10:40] LABS: BASO % 0.6 %; BASO ABS # 0.05 K/uL (0-0.2); COMPLETE YES; EOS % 1.4 %; HEMATOCRIT 40.6 % (37-47); IG% 0.2 %; LYMPH % 16.9 %; LYMPH ABS # 1.49 K/uL (1.2-3.4); MEAN CELL VOLUME 90.8 fL (80-100); MEAN CORPUSCULAR HEMOGLOBIN 29.3 pg (25-34); MEAN CORPUSCULAR HGB CONC 32.3 g/dl (32-36); MEAN PLATELET VOLUME 8.8 fL (7.4-10.4); MONO % 9.3 %; NEUT % 71.6 %; PLATELET COUNT 319 K/uL (130-400); RED BLOOD COUNT 4.47 M/uL (4.2-5.4); WHITE BLOOD COUNT 8.82 K/uL (4.8-10.8)
[2017-03-14 10:46] LABS: URINE APPEARANCE CLEAR (CLEAR); URINE BILIRUBIN NEG (NEG); URINE COLOR YELLOW; URINE NITRITE NEG (NEG); URINE PH 7.5 (4.5-7.5); URINE SPECIFIC GRAVITY 1.015 (1.000-1.030); UROBILINOGEN NEG (NEG); ZZUR CULT IF INDIC CLEAN CATCH NO
[2017-03-14 10:49] LABS: MANUAL MICROSCOPIC REQUIRED? NO; REVIEW REQ? NO; SULFASALICYLIC ACID POS (NEG)
[2017-03-14 10:54] LABS: BUN/CREATININE RATIO 24.7 (10-20); CALCIUM 9.9 mg/dl (8.5-10.1); CREATININE 0.95 mg/dl (0.60-1.20); POTASSIUM 3.7 mmol/L (3.5-5.1)
[2017-03-14 10:57] LABS: ALB/GLOB RATIO 1.2 (0.9-2)
--- NOTE | 2017-03-14 12:20 | DIAGNOSTIC IMAGING REPORT ---
CT SCAN OF THE ABDOMEN AND PELVIS WITH IV CONTRAST CLINICAL HISTORY: Left lower quadrant abdominal pain. COMPARISON STUDY: Abdominal CT dated 02/06/2017. TECHNIQUE: Following the IV administration of 92 cc of Optiray 320, CT scan of the abdomen and pelvis is performed from the lung bases to the proximal femora. Images are reviewed in the axial, sagittal, and coronal planes. IV contrast was administered without complication. A dose lowering technique was utilized adhering to the principles of ALARA. CT DOSE: 521.02 mGy.cm FINDINGS: Lung bases: The heart is enlarged and without pericardial effusion. There are small bilateral fat-containing Bochdalek hernias. No airspace consolidation or pleural effusion is identified at the lung bases. Liver: The contrast-enhanced liver is normal in size, contour, and attenuation. There is no intrahepatic biliary ductal dilatation. The hepatic veins and portal veins are patent. Calcifications are again noted in the left hepatic lobe. Gallbladder: Unremarkable. Spleen: Normal in size and attenuation. Pancreas: Atrophic and grossly unremarkable. Adrenal glands: Unremarkable. Kidneys: The contrast enhanced kidneys demonstrate cortical atrophy and are without hydronephrosis. The kidneys enhance symmetrically. A subcentimeter cortical hypodensity in the left lower pole likely represents a cyst but is too small for definitive characterization. Abdominal vasculature: The abdominal aorta is normal in course and caliber noting advanced atherosclerotic calcification. 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 Bowel: There is advanced colonic diverticulosis. There is mild pericolonic infiltration seen involving the sigmoid colon the left pelvis on axial image #270. The appearance suggests mild acute sigmoid diverticulitis. There is no evidence of diverticular abscess. Diffuse sigmoid wall thickening is likely related to chronic diverticular disease. No bowel obstruction is seen. The appendix is not identified and reported surgically absent. Peritoneum: There is no intraperitoneal free air or abdominal ascites. There is a fat-containing umbilical hernia. Lymphadenopathy: None. Pelvic viscera: The bladder, uterus, and adnexa are normal as visualized. Skeletal structures: The skeletal structures are osteopenic. There is mild lumbosacral spondylosis scoliosis. 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 No lytic or blastic lesions are seen. IMPRESSION: 1. There is advanced colonic diverticulosis with evidence of mild acute sigmoid diverticulitis. No intraperitoneal free air is seen and there is no evidence of diverticular abscess. 2. Cardiomegaly. 3. Additional findings as above. Electronically signed by: Kris Douglass M.D. 03/14/2017 12:19 PM Dictated Date/Time: 03/14/2017 12:11 PM
[2017-03-14 12:40] VITALS: BP 157/93; PULSE 95; O2SAT 96
[2017-03-14] MEDS ORDERED: MOXI400T2 PO ×2 (12:41→17:04)
== END 2017-03-14 12:54 | disposition home or self-care (01) ==
LOC: C.EDB 09:52 → C.EDC 12:54
DX: K57.92 Diverticulitis of intestine, part unspecified, without perforation or abscess without bleeding (principal); I10 Essential (primary) hypertension; Z80.9 Family history of malignant neoplasm, unspecified; Z83.3 Family history of diabetes mellitus; Z82.49 Family history of ischemic heart disease and other diseases of the circulatory system; Z87.891 Personal history of nicotine dependence; Z79.899 Other long term (current) drug therapy

== ENCOUNTER 2017-03-17 16:33 | Emergency (ER) | payer OTHER ==
[~2017-03-17] VITALS: Ht 160 cm; Wt 81.9 kg
[~2017-03-17 16:33] MED LIST changes: -ACET325T96 PO; -CPR750 PO; +MOXI400T2 PO; -ONDA4TAB10 SL
[2017-03-17 16:43] VITALS: TEMP 36.5; Ht 160 cm; Wt 81.9 kg
[2017-03-17] MEDS ORDERED: SENN-61 PO (17:03)
[2017-03-17] MEDS ORDERED: SODIUM CHLORIDE 0.9% 1000ML 1,000 ML IV STA (17:04)
[2017-03-17] MEDS ORDERED: ONDANSETRON INJ 2 MG/ML 2 ML VIAL IV STA (17:04)
[2017-03-17] MEDS ORDERED: OPTIRAY 320 IV PRN (17:15)
[2017-03-17 18:00] LABS: CALCIUM 9.3 mg/dl (8.5-10.1); POTASSIUM 3.4 mmol/L (3.5-5.1)
--- NOTE | 2017-03-17 18:00 | DIAGNOSTIC IMAGING REPORT ---
CHEST ONE VIEW PORTABLE CLINICAL HISTORY: Pain, radiating to the abdomen. COMPARISON STUDY: 02/08/2017 FINDINGS: The heart remains enlarged. There is no failure. Bibasilar densities, likely relate to prominent fat pads. There are no significant pleural effusions.[ IMPRESSION: 1. Cardiomegaly 2. No evidence of failure 3. Bibasilar opacities, likely secondary to prominent fat pad and atelectatic change Electronically signed by: Herbert Sandoval M.D. 03/17/2017 5:58 PM Dictated Date/Time: 03/17/2017 5:57 PM
[2017-03-17 18:46] LABS: BASO % 0.4 %; BASO ABS # 0.04 K/uL (0-0.2); COMPLETE YES; EOS % 1.8 %; IG% 0.2 %; LYMPH % 22.8 %; LYMPH ABS # 2.26 K/uL (1.2-3.4); MEAN CELL VOLUME 89.5 fL (80-100); MEAN CORPUSCULAR HGB CONC 34.6 g/dl (32-36); MEAN PLATELET VOLUME 9.3 fL (7.4-10.4); MONO % 10.9 %; NEUT % 63.9 %; PLATELET COUNT 355 K/uL (130-400); RED BLOOD COUNT 4.58 M/uL (4.2-5.4); WHITE BLOOD COUNT 9.93 K/uL (4.8-10.8)
--- NOTE | 2017-03-17 19:38 | DIAGNOSTIC IMAGING REPORT ---
CT ABD/PELVIS IV AND ORAL CONT CLINICAL HISTORY: Abdominal pain COMPARISON STUDY: 03/14/2017 TECHNIQUE: Following the IV administration of 94 mL of Optiray-320, CT scan of the abdomen and pelvis was performed from the lung bases to the proximal femurs. Images are reviewed in the axial, sagittal, and coronal planes. IV contrast was administered without complication. A dose lowering technique was utilized adhering to the principles of ALARA. CT DOSE: 634.32 mGy.cm FINDINGS: Lower chest: There are mild basilar atelectatic changes. Liver: The contrast-enhanced liver is normal in size, contour, and attenuation. There is no intrahepatic biliary ductal dilatation. The hepatic veins and portal veins are patent. Gallbladder: Unremarkable. Spleen: Normal in size and attenuation. Pancreas: Unremarkable. Adrenal glands: There is mild left adrenal gland thickening unchanged the prior study Kidneys: There is symmetric renal cortical enhancement. The kidneys are normal in size without hydronephrosis. Bowel: There are no transition zones indicate bowel obstruction. The appendix is not visualized. By history the appendix is surgically absent. There is extensive left colonic diverticulosis. There is sigmoid wall thickening, and minimal infiltration the perisigmoid fat. The findings are consistent with mild diverticulitis. There are no fluid collections to indicate a peridiverticular abscess. Peritoneum: There is no intraperitoneal free air or abdominal ascites. Vasculature: The abdominal aorta is normal in course and caliber. Adenopathy: None. Pelvic viscera: The bladder, and pelvic viscera are unremarkable. Skeletal structures: No destructive osseous lesions are seen. IMPRESSION: 1. No evidence of bowel obstruction. No evidence of free air 2. Mild sigmoid diverticulitis. No evidence of peridiverticular abscess. The findings remain similar to the preceding examination Electronically signed by: Herbert Sandoval M.D. 03/17/2017 7:36 PM Dictated Date/Time: 03/17/2017 7:30 PM
[2017-03-17 19:59] VITALS: BP 190/107; PULSE 91; O2SAT 97
--- NOTE | 2017-03-17 20:26 | EMERGENCY ROOM VISIT NOTE ---
History Report prepared by Hero: Aurbey Blackmon Under the Supervision of: Dr. Toby Herrera D.O. First contact with patient: 16:53 Chief Complaint: CONSTIPATION Stated Complaint: ABDOMINAL PAIN Nursing Triage Summary: patient brought in by ems patient reports no BM since monday patient reports seeing pcp yesterday and taking one sennakot last night patient reports here monday for abdominal pain and diagnosed with diverticulitis History of Present Illness The patient is a 81 year old female who presents to the Emergency Room with complaints of constant constipation-like symptoms beginning 3 days ago. The patient states that she came into the emergency room 3 days ago for abdominal pain and was diagnosed with diverticulitis. She notes that she was given prescription moxifloxacin for her symptoms and was discharged. After taking her medication for the past few days, she noted that she has not been able to have a bowel movement and began experiencing lower abdominal pain. She reports taking two laxatives for her symptoms but states that she has had no relief. She notes that her pain is about the same as when she came to the emergency department 3 days ago. She notes that she has mostly been eating soft foods and drinking liquids. She complains of nausea but denies any vomiting. She reports that she is not on any blood thinners. Source of History: patient Onset: three days ago Position: abdomen (lower) Timing: constant Associated Symptoms: + nausea, + abdominal pain, No vomiting Review of Systems See HPI for pertinent positives & negatives. A total of 10 systems reviewed and were otherwise negative. Past Medical & Surgical Medical Problems: (1) Bowel obstruction (2) HTN (hypertension) (3) Leaky heart valve Surgical Problems: (1) H/O laminectomy Family History Cancer Diabetes mellitus Hypertension Lung disease Social History Smoking Status: Former Smoker Housing Status: lives alone Occupation Status: retired Current/Historical Medications Scheduled Calcium Carbonate-Cholecalcife (Caltrate 600+D), 1 TAB PO QPM Cholecalciferol (Vitamin D3), 2,000 UNITS PO QAM Felodipine (Felodipine ER), 10 MG PO QAM Indapamide (Lozol), 1.25 MG PO QAM Irbesartan (Irbesartan), 300 MG PO QAM Metoprolol Tartrate (Lopressor), 100 MG PO BID Moxifloxacin Hcl (Avelox), 400 MG PO DAILY Senna (Senokot), 2 TAB PO HS Trazodone Hcl (Trazodone), 50 MG PO HS Allergies Coded Allergies: Penicillins (Verified Allergy, Unknown, HIVES, 03/17/17) Ciprofloxacin (Unverified Adverse Reaction, Severe, "MADE ME DEATHLY ILL" , 03/17/17) Metronidazole (Unverified Adverse Reaction, Severe, "MADE ME DEATHLY ILL" , 03/17/17) Physical Exam Vital Signs Date Time Temp Pulse Resp B/P (MAP) Pulse Ox O2 Delivery O2 Flow Rate FiO2 03/17/17 19:59 91 18 190/107 97 Room Air 03/17/17 16:43 36.5 89 18 165/89 97 Room Air Physical Exam CONSTITUTIONAL/VITAL SIGNS: Reviewed / noted above. GENERAL: Non-toxic in appearance. INTEGUMENTARY: Warm, dry, and [place]. HEAD: Normocephalic. EYES: without scleral icterus or trauma. ENT/OROPHARYNX: clear and moist. LYMPHADENOPATHY/NECK: Is supple without lymphadenopathy or meningismus. RESPIRATORY: Lungs clear and equal. CARDIOVASCULAR: Regular rate and rhythm. GI/ABDOMEN: Soft. No organomegaly or pulsatile mass. No rebound or guarding. Normal bowel sounds. Tenderness to left mid abdominal region. EXTREMITIES: Warm and well perfused. BACK: No CVA tenderness. NEUROLOGICAL: Intact without focal deficits. PSYCHIATRIC: normal affect. MUSCULOSKELETAL: Normally developed with good muscle tone. Medical Decision & Procedures ER Provider Diagnostic Interpretation: Radiology results as stated below per my review and radiologist interpretation: CHEST ONE VIEW PORTABLE FINDINGS: The heart remains enlarged. There is no failure. Bibasilar densities, likely relate to prominent fat pads. There are no significant pleural effusions. IMPRESSION: 1. Cardiomegaly 2. No evidence of failure 3. Bibasilar opacities, likely secondary to prominent fat pad and atelectatic change Electronically signed by: Herbert Sandoval M.D. 03/17/2017 5:[address] ABD/PELVIS IV AND ORAL CONT FINDINGS: Lower chest: There are mild basilar atelectatic changes. Liver: The contrast-enhanced liver is normal in size, contour, and attenuation. There is no intrahepatic biliary ductal dilatation. The hepatic veins and portal veins are patent. Gallbladder: Unremarkable. Spleen: Normal in size and attenuation. Pancreas: Unremarkable. Adrenal glands: There is mild left adrenal gland thickening unchanged the prior study Kidneys: There is symmetric renal cortical enhancement. The kidneys are normal in size without hydronephrosis. Bowel: There are no transition zones indicate bowel obstruction. The appendix is not visualized. By history the appendix is surgically absent. There is extensive left colonic diverticulosis. There is sigmoid wall thickening, and minimal infiltration the perisigmoid fat. The findings are consistent with mild diverticulitis. There are no fluid collections to indicate a peridiverticular abscess. Peritoneum: There is no intraperitoneal free air or abdominal ascites. Vasculature: The abdominal aorta is normal in course and caliber. Adenopathy: None. Pelvic viscera: The bladder, and pelvic viscera are unremarkable. Skeletal structures: No destructive osseous lesions are seen. IMPRESSION: 1. No evidence of bowel obstruction. No evidence of free air 2. Mild sigmoid diverticulitis. No evidence of peridiverticular abscess. The findings remain similar to the preceding examination Electronically signed by: Herbert Sandoval M.D. 03/17/2017 7:36 PM Laboratory Results 03/17/17 17:30 Red Blood Count 4.58, Mean Corpuscular Volume 89.5, Mean Corpuscular Hemoglobin 31.0, Mean Corpuscular Hemoglobin Concent 34.6, Mean Platelet Volume 9.3, Neutrophils (%) (Auto) 63.9, Lymphocytes (%) (Auto) 22.8, Monocytes (%) (Auto) 10.9, Eosinophils (%) (Auto) 1.8, Basophils (%) (Auto) 0.4, Neutrophils # (Auto ) 6.35, Lymphocytes # (Auto) 2.26, Monocytes # (Auto) 1.08, Eosinophils # (Auto ) 0.18, Basophils # (Auto) 0.04 03/17/17 17:30 Test 03/17/17 17:30 White Blood Count 9.93 K/uL (4.8-10.8) Red Blood Count 4.58 M/uL (4.2-5.4) Hemoglobin 14.2 g/dL (12.0-16.0) Hematocrit 41.0 % (37-47) Mean Corpuscular Volume 89.5 fL (80-100) Mean Corpuscular Hemoglobin 31.0 pg (25-34) Mean Corpuscular Hemoglobin Concent 34.6 g/dl (32-36) Platelet Count 355 K/uL (130-400) Mean Platelet Volume 9.3 fL (7.4-10.4) Neutrophils (%) (Auto) 63.9 % Lymphocytes (%) (Auto) 22.8 % Monocytes (%) (Auto) 10.9 % Eosinophils (%) (Auto) 1.8 % Basophils (%) (Auto) 0.4 % Neutrophils # (Auto) 6.35 K/uL (1.4-6.5) Lymphocytes # (Auto) 2.26 K/uL (1.2-3.4) Monocytes # (Auto) 1.08 K/uL (0.11-0.59) Eosinophils # (Auto) 0.18 K/uL (0-0.5) Basophils # (Auto) 0.04 K/uL (0-0.2) RDW Standard Deviation 44.2 fL (36.4-46.3) RDW Coefficient of Variation 13.5 % (11.5-14.5) Immature Granulocyte % (Auto) 0.2 % Immature Granulocyte # (Auto) 0.02 K/uL (0.00-0.02) Anion Gap 9.0 mmol/L (3-11) Est Creatinine Clear Calc Drug Dose 44.0 ml/min Estimated GFR () 60.8 Estimated GFR (Non- 52.4 BUN/Creatinine Ratio 20.0 (10-20) Calcium Level 9.3 mg/dl (8.5-10.1) Total Bilirubin 0.7 mg/dl (0.2-1) Direct Bilirubin 0.1 mg/dl (0-0.2) Aspartate Amino Transf (AST/SGOT) 13 U/L (15-37) Alanine Aminotransferase (ALT/SGPT) 20 U/L (12-78) Alkaline Phosphatase 79 U/L (45-117) Total Protein 7.3 gm/dl (6.4-8.2) Albumin 3.9 gm/dl (3.4-5.0) Lipase 96 U/L (73-393) Laboratory results as stated above per my review. Medications Administered Medications (Trade) Dose Ordered Sig/Luis Route Start Time Stop Time Status Last Admin Dose Admin Sodium Chloride 1,000 ml @ 999 mls/hr Q1H1M STAT IV 03/17/17 17:04 03/17/17 18:04 DC 03/17/17 17:36 999 MLS/HR Ondansetron HCl (Zofran Inj) 4 mg NOW STAT IV 03/17/17 17:04 03/17/17 17:07 DC 03/17/17 17:37 4 MG ED Course 170: Previous medical records were reviewed. The patient was evaluated in room B7. A complete history and physical examination was performed. 1703: Zofran Inj 4mg IV, Sodium Chloride 1000 ml @ 999 mls/hr IV 2028: On reevaluation, the patient is stable. I discussed the results and findings with the patient. She verbalized agreement of the treatment plan. The patient was discharged home. Medical Decision Differential considered: pancreatitis, hepatitis, or acute cholecystitis, AAA, UTI, pyelonephritis, kidney stones, appendicitis, diverticulitis, shingles, bowel obstruction mesenteric ischemia, intussusception, and hernia. This is an 81-year-old female who presents to the ED with a chief complaint of lower abdominal pain and the sensation of constipation. The patient reports that she has had no bowel movements for the past 3 days. 3 days ago, the patient was diagnosed with diverticulitis here. She was placed on moxifloxacin. The patient reports that she has not had a bowel movement since that time. She is not eating as much as she normally does. Her diet has consisted of more of a liquid like diet. The patient's symptoms are similar to that of when she was here previously. She has not yet improved. Her blood pressure here is 165/89. This is probably related to pain. The patient's CBC and complete metabolic panel were unremarkable. The BUN is 20. Chest x-ray was negative for acute disease. A CT scan of the abdomen and pelvis with oral and IV contrast reveals mild sigmoid diverticulitis. She does have some mild tenderness to palpation of the left mid to lower abdomen. The patient was treated with IV fluids as well as IV Zofran. She declined pain medication while here. She was told the results. She is felt to be stable for discharge. She will continue her antibiotic. Blood Pressure Screening Patient's blood pressure: Elevated blood pressure Blood pressure disposition: Elevated BP felt to be situational Impression Primary Impression: Diverticulitis Scribe Attestation The scribe's documentation has been prepared under my direction and personally reviewed by me in its entirety. I confirm that the note above accurately reflects all work, treatment, procedures, and medical decision making performed by me. Departure Information Dispostion Home / Self-Care Referrals Tracie Rush D.O. (PCP) Forms HOME CARE DOCUMENTATION FORM, IMPORTANT VISIT INFORMATION Patient Instructions Diverticulitis Dc, My [facility] Additional Instructions Your CT scan today shows mild diverticulitis. It is not changed from the prior CT. Continue the antibiotics you have been prescribed. Follow-up with your doctor on Monday or Monday for recheck. Return here for significant worsening of pain, fevers, vomiting or other concerning symptoms.
== END 2017-03-17 20:38 | disposition home or self-care (01) ==
LOC: EDBD 16:33 → C.EDB 16:34
DX: K57.92 Diverticulitis of intestine, part unspecified, without perforation or abscess without bleeding (principal); I10 Essential (primary) hypertension; I34.0 Nonrheumatic mitral (valve) insufficiency; Z87.891 Personal history of nicotine dependence; Z83.3 Family history of diabetes mellitus; Z82.49 Family history of ischemic heart disease and other diseases of the circulatory system

== ENCOUNTER 2017-03-20 00:41 | Inpatient (IN) | payer OTHER ==
[~2017-03-20] VITALS: Ht 162.6 cm; Wt 78.5 kg
[~2017-03-20 00:41] MED LIST changes: +SENN-61 PO
[2017-03-20] MEDS ORDERED: HYDROCODONE/ACETAMOPHEN 5/325MG TAB PO STA ×3 (02:06→08:08)
--- NOTE | 2017-03-20 02:14 | EMERGENCY ROOM VISIT NOTE ---
History Report prepared by Hero: Lucian Saldaña Under the Supervision of: Dr. Ni Glynn D.O. First contact with patient: 01:12 Chief Complaint: KNEEPAIN Stated Complaint: KNEE PAIN History of Present Illness The patient is an 81 year old female who presents to the Emergency Room with complaints of constant right knee pain starting around 2310 tonight which is deep in her knee. She states that she woke up to go the bathroom, and she could not stand on her right leg due to the pain. She states that the pain is worse with standing compared to palpation. The patient states that the pain is better when her leg is straight. She additionally notes that she has been having intermittent knee pain for the past couple of days as well. The patient additionally notes that she has been here many times in the past week for diverticulitis, and she has not had a bowel movement for the past five days. She has been on different antibiotics, and they have not been helping. The patient notes that she has been not eating as much, and she has been eating many soft foods. She denies any recent traumas to the knees, and she is not on any blood thinners. Pt denies headache, dizziness, change in vision, fevers, chest pain, shortness of breath, nausea, vomiting, diarrhea, pain with urination , and melena. Source of History: patient Onset: 2310 tonight Position: knee (right) Timing: constant Modifying Factors (Worsening): other (standing) Modifying Factors (Relieving): other (straight leg) Review of Systems See HPI for pertinent positives & negatives. A total of 10 systems reviewed and were otherwise negative. Past Medical & Surgical Medical Problems: (1) Bowel obstruction (2) HTN (hypertension) (3) Leaky heart valve Surgical Problems: (1) H/O laminectomy Family History Cancer Diabetes mellitus Hypertension Lung disease Social History Smoking Status: Former Smoker Housing Status: lives alone Occupation Status: retired Current/Historical Medications Scheduled Calcium Carbonate-Cholecalcife (Caltrate 600+D), 1 TAB PO QPM Cholecalciferol (Vitamin D3), 2,000 UNITS PO QAM Felodipine (Felodipine ER), 10 MG PO QAM Indapamide (Lozol), 1.25 MG PO QAM Irbesartan (Irbesartan), 300 MG PO QAM Metoprolol Tartrate (Lopressor), 100 MG PO BID Moxifloxacin Hcl (Avelox), 400 MG PO DAILY Senna (Senokot), 2 TAB PO HS Trazodone Hcl (Trazodone), 50 MG PO HS Scheduled PRN Hydrocodon/Acetaminophen 5MG/300MG (Vicodin (5MG/300MG)), 1-2 TAB PO Q6H PRN for Pain Allergies Coded Allergies: Penicillins (Verified Allergy, Unknown, HIVES, 03/20/17) Ciprofloxacin (Unverified Adverse Reaction, Severe, "MADE ME DEATHLY ILL" , 03/20/17) Metronidazole (Unverified Adverse Reaction, Severe, "MADE ME DEATHLY ILL" , 03/20/17) Physical Exam Vital Signs Date Time Temp Pulse Resp B/P (MAP) Pulse Ox O2 Delivery O2 Flow Rate FiO2 03/20/17 15:32 69 18 170/95 95 Room Air 03/20/17 15:12 71 18 153/113 95 Room Air 03/20/17 15:08 69 20 179/96 98 Room Air 03/20/17 14:51 167/101 03/20/17 14:23 190/103 03/20/17 13:25 69 20 206/100 98 Room Air 03/20/17 11:31 71 18 163/96 96 Room Air 03/20/17 08:48 89 95 03/20/17 06:54 78 18 186/100 96 Room Air 03/20/17 06:30 85 18 195/107 95 Room Air 03/20/17 04:47 20 207/107 98 Room Air 03/20/17 03:35 75 20 195/108 98 Room Air 03/20/17 02:44 76 20 201/101 98 Room Air 03/20/17 00:46 36.6 78 18 209/111 98 Room Air Physical Exam GENERAL: alert, well appearing, well nourished, no distress, non-toxic EYE EXAM: normal conjunctiva, PERRL and EOM's grossly intact NECK: supple, no nuchal rigidity, no adenopathy, non-tender LUNGS: Clear to auscultation. Normal chest wall mechanics HEART: no murmurs, S1 normal and S2 normal ABDOMEN: abdomen soft, non-tender, normo-active bowel sounds, no masses, no rebound or guarding. SKIN: no rashes and no bruising UPPER EXTREMITIES: upper extremities are grossly normal. LOWER EXTREMITIES: No obvious effusion. No deformity. Trace lower extremity edema. Good distal pulses bilaterally. Decreased range of motion secondary to pain. No calf tenderness NEURO EXAM: Normal sensorium, cranial nerves II-XII grossly intact, normal speech, no gross weakness of arms, no gross weakness of legs. Gross sensation intact. Medical Decision & Procedures ER Provider Diagnostic Interpretation: Radiology results have been interpreted by me. Right Knee X-Ray: No acute fracture or dislocation Radiology results have been interpreted by the radiologist and reviewed by me. US VENOUS RIGHT LOWER EXTREMITY: No evidence of DVT in the right lower extremity. 8.5 x 1.6 x 4.2 cm right popliteal fossa cyst. Radiologist: Brittny Baron M.D. Laboratory Results 03/20/17 14:35 Red Blood Count 4.38, Mean Corpuscular Volume 88.1, Mean Corpuscular Hemoglobin 30.8, Mean Corpuscular Hemoglobin Concent 35.0, Mean Platelet Volume 8.8, Neutrophils (%) (Auto) 54.9, Lymphocytes (%) (Auto) 25.4, Monocytes (%) (Auto) 16.5, Eosinophils (%) (Auto) 2.6, Basophils (%) (Auto) 0.3, Neutrophils # (Auto ) 4.29, Lymphocytes # (Auto) 1.98, Monocytes # (Auto) 1.29, Eosinophils # (Auto ) 0.20, Basophils # (Auto) 0.02 03/20/17 14:35 Test 03/20/17 14:35 White Blood Count 7.80 K/uL (4.8-10.8) Red Blood Count 4.38 M/uL (4.2-5.4) Hemoglobin 13.5 g/dL (12.0-16.0) Hematocrit 38.6 % (37-47) Mean Corpuscular Volume 88.1 fL (80-100) Mean Corpuscular Hemoglobin 30.8 pg (25-34) Mean Corpuscular Hemoglobin Concent 35.0 g/dl (32-36) Platelet Count 320 K/uL (130-400) Mean Platelet Volume 8.8 fL (7.4-10.4) Neutrophils (%) (Auto) 54.9 % Lymphocytes (%) (Auto) 25.4 % Monocytes (%) (Auto) 16.5 % Eosinophils (%) (Auto) 2.6 % Basophils (%) (Auto) 0.3 % Neutrophils # (Auto) 4.29 K/uL (1.4-6.5) Lymphocytes # (Auto) 1.98 K/uL (1.2-3.4) Monocytes # (Auto) 1.29 K/uL (0.11-0.59) Eosinophils # (Auto) 0.20 K/uL (0-0.5) Basophils # (Auto) 0.02 K/uL (0-0.2) RDW Standard Deviation 42.6 fL (36.4-46.3) RDW Coefficient of Variation 13.1 % (11.5-14.5) Immature Granulocyte % (Auto) 0.3 % Immature Granulocyte # (Auto) 0.02 K/uL (0.00-0.02) Erythrocyte Sedimentation Rate 3 mm/hr (0-21) Prothrombin Time 10.4 SECONDS (9.0-12.0) Prothromb Time International Ratio 1.0 (0.9-1.1) Activated Partial Thromboplast Time 29.3 SECONDS (21.0-31.0) Partial Thromboplastin Ratio 1.1 Anion Gap 8.0 mmol/L (3-11) Est Creatinine Clear Calc Drug Dose 38.4 ml/min Estimated GFR () 50.8 Estimated GFR (Non- 43.8 BUN/Creatinine Ratio 15.2 (10-20) Calcium Level 9.4 mg/dl (8.5-10.1) Magnesium Level 1.9 mg/dl (1.8-2.4) Total Bilirubin 0.6 mg/dl (0.2-1) Aspartate Amino Transf (AST/SGOT) 17 U/L (15-37) Alanine Aminotransferase (ALT/SGPT) 17 U/L (12-78) Alkaline Phosphatase 78 U/L (45-117) Total Protein 6.3 gm/dl (6.4-8.2) Albumin 3.4 gm/dl (3.4-5.0) Globulin 2.9 gm/dl (2.5-4.0) Albumin/Globulin Ratio 1.2 (0.9-2) Medications Administered Medications (Trade) Dose Ordered Sig/Luis Route Start Time Stop Time Status Last Admin Dose Admin Acetaminophen/ Hydrocodone Bitart ([place] 5/325 Tab) 1 tab NOW STAT PO 03/20/17 02:06 03/20/17 02:07 DC 03/20/17 02:23 1 TAB Acetaminophen/ Hydrocodone Bitart ([place] 5/325 Tab) 1 tab NOW STAT PO 03/20/17 03:42 03/20/17 03:44 DC 03/20/17 03:47 1 TAB Ibuprofen (Motrin Tab) 600 mg NOW STAT PO 03/20/17 03:42 03/20/17 03:44 DC 03/20/17 03:47 600 MG Al Hydroxide/Mg Hydroxide (Maalox Susp) 15 ml NOW STAT PO 03/20/17 05:04 03/20/17 05:05 DC 03/20/17 05:34 15 ML Metoprolol Tartrate (Lopressor Tab) 100 mg NOW STAT PO 03/20/17 08:07 03/20/17 08:09 DC 03/20/17 08:47 100 MG Irbesartan (Avapro Tab) 300 mg NOW STAT PO 03/20/17 08:07 03/20/17 08:09 DC 03/20/17 08:47 300 MG Acetaminophen/ Hydrocodone Bitart ([place] 5/325 Tab) 1 tab NOW STAT PO 03/20/17 08:08 03/20/17 08:09 DC 03/20/17 08:46 1 TAB Enteral Nutritional Formula (Boost) 1 can NOW STAT PO 03/20/17 14:17 03/20/17 14:18 DC 03/20/17 15:26 1 CAN Labetalol HCl (Normodyne IV) 10 mg NOW STAT IV 03/20/17 14:18 03/20/17 14:20 DC 03/20/17 14:45 10 MG Labetalol HCl (Normodyne IV) 10 mg NOW STAT IV 03/20/17 14:53 03/20/17 14:54 DC 03/20/17 15:07 10 MG Sodium Chloride 1,000 ml @ 100 mls/hr Q10H STAT IV 03/20/17 15:33 03/20/17 18:22 DC 03/20/17 15:33 100 MLS/HR Sodium Chloride 1,000 ml @ 100 mls/hr Q10H ONCE IV 03/20/17 16:15 03/21/17 02:14 DC 03/20/17 18:37 100 MLS/HR Hydralazine HCl (HydrALAZINE INJ) 10 mg Q6H PRN IV. 03/20/17 16:15 04/19/17 16:14 03/21/17 00:33 10 MG Acetaminophen/ Hydrocodone Bitart ([place] 5/325 Tab) 1 tab Q6H PRN PO 03/20/17 16:15 04/03/17 16:14 03/20/17 19:07 1 TAB ED Course 0112: The patient was evaluated in room B2. A complete history and physical exam was performed. 0206: [place] 5/325 Tab PO 0235: I reevaluated the patient, and I discussed the results so far. The patient and her family are still concerned about the patient getting around. 0342: On reevaluation, the patient is still having some knee pain. I ordered some Motrin Tab 600mg PO, [place] 5/325 Tab PO 0452: I reassessed the patient, and she is still having pain, and she is still concerned about going home. 0504: Maalox Susp 15ml PO 0600: Pt re-evaluated by shoe caser. Will order PT/OT for am. 0855: Pt seen by Pt/OT. 0915: compliance mgr trying to submit for inpatient rehab. 0922: Signed out to Dr. Mcwilliams. I do not feel pt meets criteria for inpatient admission. Medical Decision Differential diagnosis: Etiologies such as DVT, arthritis, septic arthritis, inflammatory effusion, gout , musculoskeletal, infection, trauma, lymphedema, idiopathic, CHF, as well as others were entertained. Likely patient's pain from worsening arthritis as well as noted cyst. No evidence of DVT. Patient with no other systemic symptoms, did not feel warranted additional labs or imaging at this time. I feel some of patient's concerns as well as the family are due to recent visits to the emergency room for diverticulitis. Patient had been reexamined and had a repeat CT which did not show any worsening symptoms. Patient now concerned about knee pain and inability to walk at home. Family states they're unable to care for her as the daughter bedside has multiple sclerosis and only 1 car which her needs for work. I feel there are several social factors contributing to patient and family's anxiety and resistance to going home with additional assistance and ambulatory aids. Patient was able to walk here although did have an antalgic gait yet, however this was mildly improved with pain medication. Patient hypertensive here, likely due to anxiety, pain, and towards the morning hours likely due to needing her usual antihypertensive medications. These were ordered for her well we were awaiting disposition. I do not suspect arterial insufficiency or acute arterial or thrombus, I do not suspect septic arthritis, no history of trauma. Medication Reconcilliation Current Medication List: was personally reviewed by me Blood Pressure Screening Patient's blood pressure: Elevated blood pressure Blood pressure disposition: Referred to PCP Impression Primary Impression: Knee pain Additional Impression: Cyst Scribe Attestation The scribe's documentation has been prepared under my direction and personally reviewed by me in its entirety. I confirm that the note above accurately reflects all work, treatment, procedures, and medical decision making performed by me. Departure Information Dispostion Still a Patient Prescriptions Hydrocodon/Acetaminophen 5MG/300MG (VICODIN (5MG/300MG)) 1 Tab Tab 1-2 TAB PO Q6H Y for Pain, #14 TAB Prov: Ni Glynn DO 03/20/17 Referrals Tracie Rush D.O. (PCP) Patient Instructions [facility] Additional Instructions Please call and follow-up with your family doctor. If your symptoms do not begin to improve, please follow-up with orthopedics also. Please take your regular medications as prescribed. Please note that the pain medicine can cause constipation. Please monitor for any drowsiness or dizziness while taking the pain medicine. Do not take it and drive. If you have any worsening pain, develop swelling, numbness/tingling, or you have any other new or concerning symptoms, please return to the emergency room. Problem Qualifiers Primary Impression: Knee pain Chronicity: acute Laterality: right Qualified Codes: M25.561 - Pain in right knee
[2017-03-20] MEDS ORDERED: IBUPROFEN 600 MG TAB PO STA (03:42)
[2017-03-20] MEDS ORDERED: ALUMINUM/MAGNESIUM SUSP 30 ML UDC PO STA (05:04)
--- NOTE | 2017-03-20 06:43 | DIAGNOSTIC IMAGING REPORT ---
R VENOUS DOPP LOWER EXT UNILAT HISTORY: 81 years-old Female pain, swelling acute pain and swelling of the right lower extremity COMPARISON: None available TECHNIQUE: Multiple real-time sonographic images of the right lower extremity deep venous system were obtained assessing grayscale appearance, color and spectral flow. FINDINGS: There is normal flow, augmentation, compressibility and phasicity of the right lower extremity deep venous system. Crescent[place] minimally complex circumscribed cystic lesion of the right popliteal fossa measures 8.5 x 1.6 x 4.2 cm IMPRESSION: 1. No sonographic evidence of deep venous thrombosis within the right lower extremity. 2. 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 The above report was generated using voice recognition software. It may contain grammatical, syntax or spelling errors. Electronically signed by: Christ Gonsalez M.D. 03/20/2017 6:42 AM Dictated Date/Time: 03/20/2017 6:40 AM
--- NOTE | 2017-03-20 07:02 | DIAGNOSTIC IMAGING REPORT ---
R KNEE 1 OR 2 VIEWS ROUTINE CLINICAL HISTORY: pain pain COMPARISON: None. DISCUSSION: Degenerative change of all major joint compartments. Moderate chondrocalcinosis. No acute bony abnormality. No significant joint effusion. There is no evidence for soft tissue swelling. IMPRESSION: Degenerative change. Chondrocalcinosis. The above report was generated using voice recognition software. It may contain grammatical, syntax or spelling errors. Electronically signed by: Wesley Sanchez M.D. 03/20/2017 7:00 AM Dictated Date/Time: 03/20/2017 7:00 AM
[2017-03-20] MEDS ORDERED: IRBESARTAN 150 MG TAB PO STA (08:07)
[2017-03-20] MEDS ORDERED: METOPROLOL TARTRATE 100 MG TAB PO STA (08:07)
[2017-03-20 08:48] VITALS: BP 155/99; PULSE 89; O2SAT 95
[2017-03-20] MEDS ORDERED: HYDR-3419 PO (08:53)
[2017-03-20] MEDS ORDERED: BOOST VANILLA PO STA ×2 (14:17)
[2017-03-20] MEDS ORDERED: LABETALOL HCL IV 5 MG/ML 20ML IV STA ×2 (14:18→14:53)
[2017-03-20 14:57] LABS: BASO % 0.3 %; BASO ABS # 0.02 K/uL (0-0.2); COMPLETE YES; EOS % 2.6 %; HEMATOCRIT 38.6 % (37-47); IG% 0.3 %; LYMPH % 25.4 %; LYMPH ABS # 1.98 K/uL (1.2-3.4); MEAN CELL VOLUME 88.1 fL (80-100); MEAN CORPUSCULAR HEMOGLOBIN 30.8 pg (25-34); MEAN PLATELET VOLUME 8.8 fL (7.4-10.4); MONO % 16.5 %; NEUT % 54.9 %; PLATELET COUNT 320 K/uL (130-400); RED BLOOD COUNT 4.38 M/uL (4.2-5.4)
[2017-03-20 14:59] LABS: PARTIAL THROMBOPLASTIN RATIO 1.1; PROTHROMBIN TIME (PATIENT) 10.4 SECONDS (9.0-12.0)
[2017-03-20 15:17] LABS: BUN/CREATININE RATIO 15.2 (10-20); CALCIUM 9.4 mg/dl (8.5-10.1); CREATININE 1.16 mg/dl (0.60-1.20); MAGNESIUM 1.9 mg/dl (1.8-2.4); POTASSIUM 3.7 mmol/L (3.5-5.1)
[2017-03-20 15:19] LABS: ALB/GLOB RATIO 1.2 (0.9-2)
[2017-03-20] MEDS ORDERED: SODIUM CHLORIDE 0.9% 1000ML 1,000 ML IV STA (15:33)
--- NOTE | 2017-03-20 15:50 | EMERGENCY ROOM VISIT NOTE ---
ED Visit Note First contact with patient: 14:03 81 yr old female arrives for evaluation of right knee pain, weakness and constipation overnight. Initially evaluated by Dr Glynn and given [place] with improvement in pain. US without DVT though does show currie's cyst. Xrays knee with degenerative findings by no evidence of fracture. Currently on last day Avalox as she has been dealing with diverticulitis. Notes stomach feeling well other than some constipation last few days. Soft non-tender abdomen and she notes passing gas and small hard stool periodically. Right knee with mild effusion without significant pain on ROM, no rash, and distal NV intact. She does have some increased pain with grind testing. Suspect knee issue is meniscal but gout possible. It does not appear to be septic joint. Seems unlikely Currie's cyst given pain is now anterior. She notes some small red blotches on arms/legs last few days. These are small, blanchable and non- petechial. She is also found to be quite hypertensive. Review chart and multiple trips here with HTN. She is without CP nor headache nor other evidence of HTN emergency. Given all of this felt labs reasonable while awaiting [facility] referral. Given 2 round labetalol and BP improving. Na is low. This may explain generalized weakness and inability to ambulate, beyond just the knee issue. INR normal. WBC, HgB, Plts unremarkable. She is stable and looks well. We do not have avalox thus unable to give her daily medication. During this patient was denied by her Health Insurance admission to [facility]. She was furthermore found to be hyponatremic and BP started bumping up again. I discussed this case with Patient, Family and they feel she is too weak and has too much pain with ambulation to go home. I feel it is reasonable to bring her in for treatment of hyponatremia, getting BP under better control as has failed outpatient, and making sure she is stable prior to discharge. This will give further time to monitor knee swelling, though with exam findings and normal ESR/WBC seems highly unlikely this is septic joint at this time. Will defer constipation treatment to hospitalist service. I do not feel that repeat CT indicated given her exam, no vomiting and multiple recent CTs. I discussed the case with Dr Hooks of [facility] Hospitalist service for further work-up and evaluation. Diagnosis: Hyponatremia Generalized Weakness Knee Effusion, Right Hypertensive Urgency Constipation
[2017-03-20] MEDS ORDERED: ONDANSETRON INJ 2 MG/ML 2 ML VIAL IV PRN (16:15)
[2017-03-20] MEDS ORDERED: HydrALAZINE HCL 20 MG/ML VIAL IV. PRN (16:15)
[2017-03-20] MEDS ORDERED: ALUMINUM/MAGNESIUM/SIMETH (MAALOX MAX) 30 ML UDC PO PRN (16:15)
[2017-03-20] MEDS ORDERED: HYDROCODONE/ACETAMOPHEN 5/325MG TAB PO PRN (16:15)
[2017-03-20] MEDS ORDERED: SODIUM CHLORIDE 0.9% 1000ML 1,000 ML IV ONE (16:15)
[2017-03-20] MEDS ORDERED: POLYETHYLENE (MIRALAX) 17 GM PACK PO PRN (16:15)
[2017-03-20] MEDS ORDERED: MAGNESIUM HYDROXIDE SUSP 30 ML UDC PO PRN (16:15)
[2017-03-20] MEDS ORDERED: IBUPROFEN 200 MG TAB PO PRN (16:15)
[2017-03-20] MEDS ORDERED: IV FLUIDS COMPLETED PRN ×2 (16:30→20:30)
--- NOTE | 2017-03-20 16:31 | History and Physical ---
History & Physical Date & Time of Service: Mar 20, 2017 at 16:10 Chief Complaint: Knee Pain Primary Care Physician: Tracie Rush D.O. History of Present Illness Source: patient, family, clinic records, hospital records Patient is a pleasant 81 y/o female, with PMHx of HTN, SBO, and diverticulitis, who presented to the ED because of R knee pain x1 day. Patient states she was awaken in the middle of the night from severe R knee pain. She then tried to get up to use the restroom, but could not stand on her R leg due to R knee pain. She then called her [id number] who brought her to the ED. She denies any falls/trauma. Patient was planning to be discharged to [facility] from ED but was denied. She states currently her knee pain is well controlled. Patient has been seen in [facility] ED on 02/06, 02/08, 03/14, and 03/17, due to diverticulitis. She was initially placed on Cipro + Flagyl but did not tolerate the Flagyl, and continued the Cipro. However, patient states she then didn't tolerate the Cipro and returned to the ED. She was most recently placed on Moxifloxacin- she completed 6/7 days. Currently, she denies pain similar to diverticulitis, but notes she has not had a BM in 6 days. She is passing flatus. She admits to abdominal distention/bloating. She denies N/V. Patient most recent;y had CT scan on abdominal 3 days ago, which reported mild sigmoid diverticulitis and no evidence of obstruction. She has been eating/drinking very little since the start of her diverticulitis. Patient was hypertensive in ED, but did not take any of her medications prior to arrival. She also notes she gets extremely anxious when coming to the ED. She was treated w/ IV Labetalol and home medications in ED- BP improved to 170s/90s from 209/111. She notes her sbp BP runs around 150s at home. Patient denies any fever, chills, sweats, lightheadedness, dizziness, vision changes, CP, palpitations, edema, SOB, wheezing, cough, nausea, vomiting, diarrhea, urinary symptoms, melena, numbness/ tingling, weakness, anxiety/depression, active bleeding, or new skin discoloration/changes. Past Medical/Surgical History Past Medical History: HTN SBO diverticulitis Surgical history: fibroid removal x2 adhesion lysis Family History Cancer Diabetes mellitus Hypertension Lung disease Social History Smoking Status: Former Smoker Marital Status: single Housing status: lives alone Occupational Status: retired Allergies Coded Allergies: Penicillins (Verified Allergy, Unknown, HIVES, 03/20/17) Ciprofloxacin (Unverified Adverse Reaction, Severe, "MADE ME DEATHLY ILL" , 03/20/17) Metronidazole (Unverified Adverse Reaction, Severe, "MADE ME DEATHLY ILL" , 03/20/17) Home Medications Scheduled Calcium Carbonate-Cholecalcife (Caltrate 600+D), 1 TAB PO QPM Cholecalciferol (Vitamin D3), 2,000 UNITS PO QAM Felodipine (Felodipine ER), 10 MG PO QAM Indapamide (Lozol), 1.25 MG PO QAM Irbesartan (Irbesartan), 300 MG PO QAM Metoprolol Tartrate (Lopressor), 100 MG PO BID Moxifloxacin Hcl (Avelox), 400 MG PO DAILY Senna (Senokot), 2 TAB PO HS Trazodone Hcl (Trazodone), 50 MG PO HS Scheduled PRN Hydrocodon/Acetaminophen 5MG/300MG (Vicodin (5MG/300MG)), 1-2 TAB PO Q6H PRN for Pain Physical Exam Vital Signs Date Time Temp Pulse Resp B/P (MAP) Pulse Ox O2 Delivery O2 Flow Rate FiO2 03/20/17 15:32 69 18 170/95 95 Room Air 03/20/17 15:12 71 18 153/113 95 Room Air 03/20/17 15:08 69 20 179/96 98 Room Air 03/20/17 14:51 167/101 03/20/17 14:23 190/103 03/20/17 13:25 69 20 206/100 98 Room Air 03/20/17 11:31 71 18 163/96 96 Room Air 03/20/17 08:48 89 95 03/20/17 06:54 78 18 186/100 96 Room Air 03/20/17 06:30 85 18 195/107 95 Room Air 03/20/17 04:47 20 207/107 98 Room Air 03/20/17 03:35 75 20 195/108 98 Room Air 03/20/17 02:44 76 20 201/101 98 Room Air 03/20/17 00:46 36.6 78 18 209/111 98 Room Air General Appearance: no apparent distress Head: normocephalic, atraumatic Eyes: PERRL ENT: hearing grossly normal Neck: no adenopathy Respiratory/Chest: lungs clear, no respiratory distress, no accessory muscle use Cardiovascular: regular rate, rhythm Abdomen/GI: normal bowel sounds, non tender, + distended Back: normal inspection Extremities/Musculoskelatal: no calf tenderness, no pedal edema Neurologic/Psych: alert, normal mood/affect, oriented x 3 Skin: normal color, warm/dry, no rash Diagnostics Laboratory Results Results Past 24 Hours Test 03/20/17 14:35 Range/Units White Blood Count 7.80 4.8-10.8 K/uL Red Blood Count 4.38 4.2-5.4 M/uL Hemoglobin 13.5 12.0-16.0 g/dL Hematocrit 38.6 37-47 % Mean Corpuscular Volume 88.1 80-100 fL Mean Corpuscular Hemoglobin 30.8 25-34 pg Mean Corpuscular Hemoglobin Concent 35.0 32-36 g/dl Platelet Count 320 130-400 K/uL Mean Platelet Volume 8.8 7.4-10.4 fL Neutrophils (%) (Auto) 54.9 % Lymphocytes (%) (Auto) 25.4 % Monocytes (%) (Auto) 16.5 % Eosinophils (%) (Auto) 2.6 % Basophils (%) (Auto) 0.3 % Neutrophils # (Auto) 4.29 1.4-6.5 K/uL Lymphocytes # (Auto) 1.98 1.2-3.4 K/uL Monocytes # (Auto) 1.29 0.11-0.59 K/uL Eosinophils # (Auto) 0.20 0-0.5 K/uL Basophils # (Auto) 0.02 0-0.2 K/uL RDW Standard Deviation 42.6 36.4-46.3 fL RDW Coefficient of Variation 13.1 11.5-14.5 % Immature Granulocyte % (Auto) 0.3 % Immature Granulocyte # (Auto) 0.02 0.00-0.02 K/uL Erythrocyte Sedimentation Rate 3 0-21 mm/hr Prothrombin Time 10.4 9.0-12.0 SECONDS Prothromb Time International Ratio 1.0 0.9-1.1 Activated Partial Thromboplast Time 29.3 21.0-31.0 SECONDS Partial Thromboplastin Ratio 1.1 Sodium Level 129 136-145 mmol/L Potassium Level 3.7 3.5-5.1 mmol/L Chloride Level 91 98-107 mmol/L Carbon Dioxide Level 30 21-32 mmol/L Anion Gap 8.0 3-11 mmol/L Blood Urea Nitrogen 18 7-18 mg/dl Creatinine 1.16 0.60-1.20 mg/dl Est Creatinine Clear Calc Drug Dose 38.4 ml/min Estimated GFR () 50.8 Estimated GFR (Non- 43.8 BUN/Creatinine Ratio 15.2 10-20 Random Glucose 104 70-99 mg/dl Calcium Level 9.4 8.5-10.1 mg/dl Magnesium Level 1.9 1.8-2.4 mg/dl Total Bilirubin 0.6 0.2-1 mg/dl Aspartate Amino Transf (AST/SGOT) 17 15-37 U/L Alanine Aminotransferase (ALT/SGPT) 17 12-78 U/L Alkaline Phosphatase 78 45-117 U/L Total Protein 6.3 6.4-8.2 gm/dl Albumin 3.4 3.4-5.0 gm/dl Globulin 2.9 2.5-4.0 gm/dl Albumin/Globulin Ratio 1.2 0.9-2 Diagnostic Radiology R VENOUS DOPP LOWER EXT UNILAT HISTORY: 81 years-old Female pain, swelling acute pain and swelling of the right lower extremity COMPARISON: None available TECHNIQUE: Multiple real-time sonographic images of the right lower extremity deep venous system were obtained assessing grayscale appearance, color and spectral flow. FINDINGS: There is normal flow, augmentation, compressibility and phasicity of the right lower extremity deep venous system. Crescent[place] minimally complex circumscribed cystic lesion of the right popliteal fossa measures 8.5 x 1.6 x 4.2 cm IMPRESSION: 1. No sonographic evidence of deep venous thrombosis within the right lower extremity. 2. 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 The above report was generated using voice recognition software. It may contain grammatical, syntax or spelling errors. Electronically signed by: Christ Gonsalez M.D. 03/20/2017 6:42 AM Dictated Date/Time: 03/20/2017 6:40 AM The status of this report is Signed. Draft = Not yet reviewed or approved by Radiologist. Signed = Reviewed and approved by Radiologist. R KNEE 1 OR 2 VIEWS ROUTINE CLINICAL HISTORY: pain pain COMPARISON: None. DISCUSSION: Degenerative change of all major joint compartments. Moderate chondrocalcinosis. No acute bony abnormality. No significant joint effusion. There is no evidence for soft tissue swelling. IMPRESSION: Degenerative change. Chondrocalcinosis. The above report was generated using voice recognition software. It may contain grammatical, syntax or spelling errors. Electronically signed by: Wesley Sanchez M.D. 03/20/2017 7:00 AM Dictated Date/Time: 03/20/2017 7:00 AM The status of this report is Signed. Draft = Not yet reviewed or approved by Radiologist. Signed = Reviewed and approved by Radiologist. Impression Assessment and Plan Patient is a pleasant 81 y/o female, with PMHx of HTN, SBO, fibromyalgia, and diverticulitis, who presented to the ED because of R knee pain x1 day. R knee pain, likely secondary to Currie's cyst: - Admit to med/surg - Ibuprofen + Alba PRN for pain management - Venous Doppler negative for DVT; knee x-ray unremarkable - PT/OT consulted- hoping for [facility] Constipation: Senokot HS, MiraLAX daily and PRN, Colace 100 mg BID, Milk of Mag PRN HTN- UNCONTROLLED, ?secondary to pain/situational: - Continue Felodipine 10 mg daily, Irbesartan 300 mg daily, Lopressor 100 mg BID - Hold Lozol 1.25 mg daily due to hyponatremia - Hydralazine IV PRN Hyponatremia, likely secondary to poor PO intake: IV NSS @ 100 ml/hr x1, follow PRP h/o diverticulitis: Has been on antibiotic treatment since 02/06- most recently completed 6/7 days of Moxifloxacin- afebrile, no WBC, no abdominal tenderness Fibromyalgia: Continue Trazodone 50 mg HS DVT prophylaxis: Heparin SQ BID Code Status: LEVEL V, DNR Dipso: From home, lives alone- planning for rehab at discharge- PT/OT and CM consulted Level of Care Med/Surg Resuscitation Status DO NOT RESUSCITATE VTE Prophylaxis VTE Risk Assessment Done? Y/N: Yes Risk Level: Moderate Given or contraindicated: Unfractionated heparin SQ, T.E.D. Stockings, SCD's Reviewed: Pt Seen/Exam by Me History Pt with R knee pain and swelling that became inability to ambulate last night. Pt states she has hx of knee pain that was most severe before her and she was going up and down stairs in her home constantly to care for him. After he passed, she moved to a one floor home and has not had much issue with her knees until around 11p last night. She was suddenly unable to ambulate due to R knee pain and swelling. State the pain is "deep in the joint" . Pt has had hip injections with [facility] in the past, but has not seen any of the surgeons in the group. Is bloated and constipated, but no longer with abd pain or other diverticulitis sx. No chest pain or SOB. Agree with HPI/ROS as noted. General Appearance: WD/WN, no apparent distress Eye Exam: bilateral eye normal inspection, bilateral eye EOMI Ears, Nose, Throat: hearing grossly normal Neck: supple Respiratory: normal breath sounds, no respiratory distress Cardiovascular: normal peripheral pulses, regular rate, rhythm Gastrointestinal: non tender, soft, distended Extremities: non-tender, no pedal edema, swelling (R knee, cyst is palpable posteriorly) Neurologic/Psychiatric: alert, normal mood/affect, oriented x 3 Skin Characteristics: normal color, warm/dry Assessment/Plan Agree with plan as outlined above Ambulatory dysfunction likely related to Currie's cyst seen on LE US Neg for DVT Ortho c/s for possible drainage PT/OT for possible rehab Diverticulitis: resolved Prune juice for constipation Enema tomorrow if ongoing sx HTN: BP elevated in the setting of missed AM meds as she was in the ED Monitor
[2017-03-20 17:39] VITALS: BP 172/102; PULSE 91; TEMP 36.5; O2SAT 95; Ht 162.6 cm; Wt 78.5 kg
[2017-03-20] MEDS: HEPARIN SOD 5000 UNIT/0.5 ML CARP SQ SCH (19:07)
[2017-03-20 19:49] VITALS: BP 176/93; PULSE 82; TEMP 36.7; O2SAT 95
[2017-03-20] MEDS: METOPROLOL TARTRATE 100 MG TAB PO SCH (20:22)
[2017-03-20] MEDS: DOCUSATE SODIUM 100 MG CAP PO SCH (20:22)
[2017-03-20] MEDS: SENNA 8.6 MG TAB PO SCH (20:22)
[2017-03-20] MEDS: TRAZODONE HCL 50 MG TAB PO SCH (22:28)
[2017-03-21] VITALS (10 sets, daily range): BP systolic 132–199; BP diastolic 72–116; PULSE 84–94; TEMP 36.5–36.6; O2SAT 94–95
[2017-03-21] MEDS: ACETAMINOPHEN 325 MG TAB PO PRN ×2 (04:36→18:27)
[2017-03-21] MEDS: HEPARIN SOD 5000 UNIT/0.5 ML CARP SQ SCH ×2 (06:05→18:27)
[2017-03-21 06:40] LABS: BUN/CREATININE RATIO 21.1 (10-20); CALCIUM 8.3 mg/dl (8.5-10.1); CREATININE 0.85 mg/dl (0.60-1.20); POTASSIUM 3.3 mmol/L (3.5-5.1)
[2017-03-21] MEDS: POLYETHYLENE (MIRALAX) 17 GM PACK PO SCH (07:51)
[2017-03-21] MEDS: DOCUSATE SODIUM 100 MG CAP PO SCH ×2 (07:51→20:00)
[2017-03-21] MEDS ORDERED: LIDOCAINE HCL 1% 20 ML VIAL ONE (08:00)
[2017-03-21] MEDS ORDERED: TRIAMCINOLONE ACET 40 MG/ML VIAL IA ONE (08:15)
--- NOTE | 2017-03-21 08:15 | Orthopedic Consultation ---
Orthopedic Consultation Date of Consultation: Mar 21, 2017. Attending Physician: Criss oHoks DO Reason for Consultation: Right knee pain x 1 day History of Present Illness Patient is a pleasant 81-year-old female who presented to the emergency room yesterday after having severe sudden onset pain of her right knee. She denies any known injury or fall. She has had prior knee pain in the past she states from "arthritis". She's never been seen or evaluated for her right knee pain. She states this never been this severe. She just woke up with it. She did not have any difference in activity the day prior. She states that she's been doing for the last week or so with diverticulitis has been in and out of the ED. Her pain was so bad when she tried to get out of bed yesterday morning she was unable to weight-bear so she presented to the emergency room. She states that she does live alone. She does not use any assistive device normally to assist with ambulation. She denies any fevers or chills due to her right knee pain. She denies any redness or warmth. She denies any buckling or instability. She states it was just very painful and she was unable to bear weight. She has been seen in our office by Dr. Albert and Dr. Najera for right hip trochanteric bursitis in which she's received corticosteroid injections. Her last injection was in the spring and did not do anything to relieve her pain. She states that she is unable to lay on the right side, but she's been dealing with this for quite some time and is not source of her pain at this time. Currently she is resting in bed. She states that her pain is much improved due to the pain medication. She still does need a walker to assist with ambulation and does have pain with weightbearing. She states that she is unable to bend it too far because it feels very stiff. She denies any right hip or right ankle pain. She denies any numbness or tingling in her right lower extremity. She denies any posterior knee pain or tightness. X-rays and ultrasound were done and due to her severe right knee pain and orthopedic consultation was requested. Past Medical/Surgical History Medical Problems: (1) Cyst Status: Acute (2) Knee pain Status: Acute Family History Cancer Diabetes mellitus Hypertension Lung disease Social History Smoking Status: Former Smoker Marital Status: single Housing Status: lives alone Occupation Status: retired Allergies Coded Allergies: Penicillins (Verified Allergy, Unknown, HIVES, 03/20/17) Ciprofloxacin (Unverified Adverse Reaction, Severe, "MADE ME DEATHLY ILL" , 03/20/17) Metronidazole (Unverified Adverse Reaction, Severe, "MADE ME DEATHLY ILL" , 03/20/17) Home Medications Scheduled Calcium Carbonate-Cholecalcife (Caltrate 600+D), 1 TAB PO QPM Cholecalciferol (Vitamin D3), 2,000 UNITS PO QAM Felodipine (Felodipine ER), 10 MG PO QAM Indapamide (Lozol), 1.25 MG PO QAM Irbesartan (Irbesartan), 300 MG PO QAM Metoprolol Tartrate (Lopressor), 100 MG PO BID Moxifloxacin Hcl (Avelox), 400 MG PO DAILY Senna (Senokot), 2 TAB PO HS Trazodone Hcl (Trazodone), 50 MG PO HS Scheduled PRN Hydrocodon/Acetaminophen 5MG/300MG (Vicodin (5MG/300MG)), 1-2 TAB PO Q6H PRN for Pain Current Inpatient Medications Current Inpatient Medications Medications (Trade) Dose Ordered Sig/Luis Route Start Time Stop Time Status Last Admin Dose Admin Acetaminophen (Tylenol Tab) 650 mg Q4H PRN PO 03/20/17 16:15 04/19/17 16:14 03/21/17 04:36 650 MG Al Hydrox/Mg Hydrox/Simethicone (Maalox Max Susp) 15 ml Q4H PRN PO 03/20/17 16:15 04/19/17 16:14 Magnesium Hydroxide (Milk Of Magnesia Susp) 30 ml Q6H PRN PO 03/20/17 16:15 04/19/17 16:14 Polyethylene (Miralax Powder Packet) 17 gm DAILY PRN PO 03/20/17 16:15 04/19/17 16:14 Ondansetron HCl (Zofran Inj) 4 mg Q6H PRN IV 03/20/17 16:15 04/19/17 16:14 03/21/17 04:36 4 MG Heparin Sodium (Porcine) (Heparin Sq 5000 Unit/0.5ml) 5,000 unit Q12H SQ 03/20/17 18:00 04/19/17 17:59 03/21/17 06:05 5,000 UNIT Metoprolol Tartrate (Lopressor Tab) 100 mg BID PO 03/20/17 20:00 04/19/17 20:59 03/20/17 20:22 100 MG Senna (Senokot Tab) 17.2 mg HS PO 03/20/17 21:00 04/19/17 20:59 03/20/17 20:22 17.2 MG Trazodone HCl (Desyrel Tab) 50 mg HS PO 03/20/17 21:00 04/19/17 20:59 03/20/17 22:28 50 MG Felodipine (Plendil Tabcr) 10 mg QAM PO 03/21/17 08:00 04/20/17 08:59 Irbesartan (Avapro Tab) 300 mg QAM PO 03/21/17 08:00 04/20/17 08:59 Hydralazine HCl (HydrALAZINE INJ) 10 mg Q6H PRN IV. 03/20/17 16:15 04/19/17 16:14 03/21/17 00:33 10 MG Docusate Sodium (coLACE CAP) 100 mg BID PO 03/20/17 20:00 04/19/17 20:59 03/20/17 20:22 100 MG Polyethylene (Miralax Powder Packet) 17 gm DAILY PO 03/21/17 08:00 04/20/17 08:59 Acetaminophen/ Hydrocodone Bitart ([place] 5/325 Tab) 1 tab Q6H PRN PO 03/20/17 16:15 04/03/17 16:14 03/20/17 19:07 1 TAB Ibuprofen (Advil Tab) 400 mg QID PRN PO 03/20/17 16:15 04/19/17 16:14 Miscellaneous (Iv Fluids Completed) 1 ea PRN PRN N/A 03/20/17 16:30 03/20/18 16:29 03/21/17 04:35 1 EA Miscellaneous (Iv Fluids Completed) 1 ea PRN PRN N/A 03/20/17 20:30 03/20/18 20:29 Review of Systems Constitutional: + fatigue, No fever, No chills Abdomen: + pain, + nausea, + diarrhea (since last night.), + constipation ( prior to last evening she had not had a bowel movement for approximately 6 days due to the diverticulitis.), + problem reported (recent diverticulitis) Musculoskeletal: + joint pain (right knee), + swelling (right knee), No muscle pain, No calf pain Physical Exam Date Time Temp Pulse Resp B/P (MAP) Pulse Ox O2 Delivery O2 Flow Rate FiO2 03/21/17 07:35 36.5 91 20 182/96 (124) 95 Room Air 170/83 (112) 03/21/17 04:00 90 140/86 (104) 03/21/17 01:39 132/72 (92) 03/21/17 00:34 182/98 (126) 03/21/17 00:15 Room Air 03/21/17 00:14 189/107 (134) 03/21/17 00:13 36.5 84 18 199/116 (143) 94 Room Air 03/20/17 19:49 36.7 82 20 176/93 (120) 95 Room Air 03/20/17 17:39 36.5 91 16 172/102 95 Room Air 03/20/17 17:10 74 18 180/99 95 Room Air 03/20/17 15:32 69 18 170/95 95 Room Air 03/20/17 15:12 71 18 153/113 95 Room Air 03/20/17 15:08 69 20 179/96 98 Room Air 03/20/17 14:51 167/101 03/20/17 14:23 190/103 03/20/17 13:25 69 20 206/100 98 Room Air 03/20/17 11:31 71 18 163/96 96 Room Air 03/20/17 08:48 89 95 General Appearance: WD/WN, no apparent distress Extremities/Musculoskelatal: no calf tenderness, normal capillary refill, no pedal edema, + pertinent finding (exam of right lower extremity: Right hip evaluation reveals some mild tenderness of her right trochanteric bursa. She is nontender of her right thigh or down her iliotibial band. She tolerates gentle range of motion of her right hip without any discomfort. She has full ankle range of motion without any discomfort. Strength with dorsiflexion and plantarflexion is 5 out of 5. She is able to independently straight leg raise with some mild discomfort. Strength 4 out of 5 with straight leg raise testing due to pain in her right knee. Distal pulses are 2+. Distal sensation is normal exam of her right knee reveals small effusion. She is able to fully extend her knee and flex to about proximal a 90. At 90 she gets a lot of discomfort and tightness. She has mild pain with palpation of her medial joint line. She has tenderness with palpation of her pes anserine bursa. She has moderate to severe pain palpation of her lateral joint line. She's also tender over her fibular head. She has no varus or valgus instability but does have pain with varus stress of her right knee. She is stable anterior and posterior drawer. There is no erythema or ecchymosis to her right knee. No warmth to the right knee. She is nontender over patella or quadriceps tendon. She tolerates gentle range of motion of her patella without any discomfort. She is able to ambulate with the assistance of a walker with a slight antalgic gait.) Laboratory Results Last 24 Hours Test 03/20/17 14:35 03/21/17 05:33 White Blood Count 7.80 K/uL Red Blood Count 4.38 M/uL Hemoglobin 13.5 g/dL Hematocrit 38.6 % Mean Corpuscular Volume 88.1 fL Mean Corpuscular Hemoglobin 30.8 pg Mean Corpuscular Hemoglobin Concent 35.0 g/dl Platelet Count 320 K/uL Mean Platelet Volume 8.8 fL Neutrophils (%) (Auto) 54.9 % Lymphocytes (%) (Auto) 25.4 % Monocytes (%) (Auto) 16.5 % Eosinophils (%) (Auto) 2.6 % Basophils (%) (Auto) 0.3 % Neutrophils # (Auto) 4.29 K/uL Lymphocytes # (Auto) 1.98 K/uL Monocytes # (Auto) 1.29 K/uL Eosinophils # (Auto) 0.20 K/uL Basophils # (Auto) 0.02 K/uL RDW Standard Deviation 42.6 fL RDW Coefficient of Variation 13.1 % Immature Granulocyte % (Auto) 0.3 % Immature Granulocyte # (Auto) 0.02 K/uL Erythrocyte Sedimentation Rate 3 mm/hr Prothrombin Time 10.4 SECONDS Prothromb Time International Ratio 1.0 Activated Partial Thromboplast Time 29.3 SECONDS Partial Thromboplastin Ratio 1.1 Sodium Level 129 mmol/L 130 mmol/L Potassium Level 3.7 mmol/L 3.3 mmol/L Chloride Level 91 mmol/L 95 mmol/L Carbon Dioxide Level 30 mmol/L 27 mmol/L Anion Gap 8.0 mmol/L 8.0 mmol/L Blood Urea Nitrogen 18 mg/dl 18 mg/dl Creatinine 1.16 mg/dl 0.85 mg/dl Est Creatinine Clear Calc Drug Dose 38.4 ml/min 51.2 ml/min Estimated GFR () 50.8 74.0 Estimated GFR (Non- 43.8 63.8 BUN/Creatinine Ratio 15.2 21.1 Random Glucose 104 mg/dl 114 mg/dl Calcium Level 9.4 mg/dl 8.3 mg/dl Magnesium Level 1.9 mg/dl Total Bilirubin 0.6 mg/dl Aspartate Amino Transf (AST/SGOT) 17 U/L Alanine Aminotransferase (ALT/SGPT) 17 U/L Alkaline Phosphatase 78 U/L Total Protein 6.3 gm/dl Albumin 3.4 gm/dl Globulin 2.9 gm/dl Albumin/Globulin Ratio 1.2 Radiology images: X-rays of her right knee AP and lateral views were taken and show some mild degenerative joint disease with chondrocalcinosis of her menisci. No acute fracture, dislocation or subluxation were appreciated. Ultrasound: Revealed an 8.5 cm Currie cyst otherwise no evidence of DVT. Assessment & Plan Assessment: Acute right knee pain with effusion Plan: Her knee pain is improved with her resting in bed and taking Tylenol. She states that she has not had any pain medication for her right knee. I recommended a aspiration and possible cortisone and injection of her right knee for therapeutic and diagnostic purposes. She agreed to proceed with aspiration and injection. I will order medication, discuss with Dr. Olguin and return later to do the aspiration and injection. She should continue to use a walker to assist with ambulation. She can weight-bear as tolerated right lower extremity and do full range of motion of her right knee as tolerated. Recommend physical therapy consult. She may need to go to an inpatient rehabilitation upon discharge depending on how her knee pain response to treatment. All questions were answered, thank you for this consultation.
[2017-03-21] MEDS: IRBESARTAN 150 MG TAB PO SCH (08:56)
[2017-03-21] MEDS: METOPROLOL TARTRATE 100 MG TAB PO SCH ×2 (08:56→20:20)
[2017-03-21] MEDS: FELODIPINE 5 MG TABCR PO SCH (08:57)
[2017-03-21] MEDS ORDERED: INDAPAMIDE 1.25 MG TAB PO SCH (09:00)
[2017-03-21] MEDS ORDERED: POTASSIUM CHLORIDE 20 MEQ TABCR PO ONE (15:30)
--- NOTE | 2017-03-21 16:16 | Progress Note ---
Subjective Date of Service: Mar 21, 2017. Subjective Pt evaluation today including: conversation w/ patient, physical exam 81 year old female with history of diverticulitis, hypertension, comes in to hospital with right knee swelling. Patient reports that her pain has gradually improved today but is still waiting for ortho to aspirate her knee. Patient reports that her abdominal pain is nonexistent. Patient denies any fever, chills, nausea, vomiting. Patient though is concerned with her ambulation. Problem List Medical Problems: (1) Cyst Status: Acute (2) Knee pain Status: Acute Review of Systems Constitutional: No fever, No chills Respiratory: No cough, No sputum Cardiac: No chest pain, No orthopnea Abdomen: No pain, No nausea Musculoskeletal: + joint pain Female : No dysuria, No urinary frequency Endo: No fatigue Skin: No rash, No itch All Other Systems: Reviewed and Negative Objective Vital Signs Date Time Temp Pulse Resp B/P (MAP) Pulse Ox O2 Delivery O2 Flow Rate FiO2 03/21/17 15:19 36.6 85 20 156/78 (104) 95 Room Air 03/21/17 10:57 142/80 (100) 03/21/17 09:56 Room Air 03/21/17 07:35 36.5 91 20 182/96 (124) 95 Room Air 170/83 (112) 03/21/17 04:00 90 140/86 (104) 03/21/17 01:39 132/72 (92) 03/21/17 00:34 182/98 (126) 03/21/17 00:15 Room Air 03/21/17 00:14 189/107 (134) 03/21/17 00:13 36.5 84 18 199/116 (143) 94 Room Air 03/20/17 19:49 36.7 82 20 176/93 (120) 95 Room Air 03/20/17 17:39 36.5 91 16 172/102 95 Room Air 03/20/17 17:10 74 18 180/99 95 Room Air Physical Exam General Appearance: WD/WN, no apparent distress Neck: supple, no adenopathy Respiratory/Chest: chest non-tender, lungs clear, normal breath sounds Cardiovascular: regular rate, rhythm, no edema Abdomen: normal bowel sounds, non tender, soft Extremities: + pertinent finding (Right knee: mild to moderate suprapatellar swelling. Moderate OA deformities of her right knee. No warmth, no eyrhtema.) Lymphatic: no adenopathy Laboratory Results Last 24 Hours Test 03/21/17 05:33 Sodium Level 130 mmol/L Potassium Level 3.3 mmol/L Chloride Level 95 mmol/L Carbon Dioxide Level 27 mmol/L Anion Gap 8.0 mmol/L Blood Urea Nitrogen 18 mg/dl Creatinine 0.85 mg/dl Est Creatinine Clear Calc Drug Dose 51.2 ml/min Estimated GFR () 74.0 Estimated GFR (Non- 63.8 BUN/Creatinine Ratio 21.1 Random Glucose 114 mg/dl Calcium Level 8.3 mg/dl Assessment and Plan Right knee effusion secondary to OA in an 81 year old female with H/O hypertension, diverticulitis. 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 -Patient was offered a knee aspiration by me with an injection of steroid, after explaining to her that I am a Sports Medicine trained provider with experience in this procedure. -Goal was to limit length of stay in the hospital. -However, patient politely refused and prefers that Ortho performs an arthrocentesis. - Ibuprofen + [place] PRN for pain management - Venous Doppler negative for DVT; knee x-ray unremarkable, except for OA changes, - PT/OT consulted- patient is hoping for [facility]. However, i doubt she will require this given that she will likely improve with the injection. Constipation: Senokot HS, MiraLAX daily and PRN, Colace 100 mg BID, Milk of Mag PRN HTN- UNCONTROLLED, secondary to pain/situational, and holding the lozol. - Continue Felodipine 10 mg daily, Irbesartan 300 mg daily, Lopressor 100 mg BID - Hold Lozol 1.25 mg daily due to hyponatremia. This decision was made by admitting team. -her hyponatremia is likely chronic. will likely restart tomorrow after assessing her BP throughout the day without the Lozol. - Hydralazine IV PRN Hyponatremia, likely secondary to medication: f/u with PRP h/o diverticulitis: Completed antibiotics. will monitor. pain appears to be controlled and patient appears to be educated on her diet. Fibromyalgia: Continue Trazodone 50 mg HS DVT prophylaxis: Heparin SQ BID Code Status: LEVEL V, DNR Dipso: From home, lives alone- planning for home for discharge Continued [facility] stay due to: other (awaiting procedure.) Discharge planning: home
--- NOTE | 2017-03-21 17:04 | Procedure Note ---
Procedure Note Date of Service Mar 21, 2017. Procedure Note Procedure Note: Patient seen and evaluated by Dr. Olguin. A joint aspiration and injection was recommended. She agreed to proceed. She was placed in the supine position in her bed. Her right knee was identified and the superior lateral pouch was marked. Timeout verbal consent obtained. Her skin was cleansed with alcohol and I aspirated approximately 10 mL of last 1 synovial fluid from her right knee. This was not sent for culture for analysis. I then injected 3 mL of 1% lidocaine and 40 mg Kenalog. She tolerated the aspiration and injection well. Pressures applied for hemostasis. An Bran bandage was applied to her right knee for compression. She may weight-bear as tolerated and advance activities as tolerated. Recommend using walker to assist with ambulation. She did get up to go to the bathroom after the injection and it did feel improvement in her pain. I will recheck her in the morning to see how she is doing. She can continue physical therapy as ordered.
--- NOTE | 2017-03-21 17:52 | PROGRESS NOTE ---
DATE: 03/21/2017 SUBJECTIVE: The patient is seen in conjunction with Libertad Hilliard. She and I have seen and evaluated this patient together. I have discussed the patient with Libertad, reviewed her note and I am in agreement with treatment plan. Sudden onset of right knee pain yesterday resulting in the inability to walk, she was admitted to the hospital. Radiographs show minimal degenerative changes and chondrocalcinosis. Her white count is normal. Her sed rate is 3, she has been afebrile. There has not been history of injury. OBJECTIVE: Her exam shows intact distal neurovascular function, 5/5 motor function, 1+ dorsalis pedis pulse, normal sensation except for some chronic numbness in the arch of the foot. She can do a leg raise and bend her knee to 100 degrees. She has a small effusion within the knee with some slight increased warmth but no erythema. The hip is nontender to range of motion. She has some tenderness medially and laterally along the joint. IMPRESSION AND PLAN: I suspect that she has a flare up of chondrocalcinosis or an exacerbation of her underlying arthritis. We reviewed her options which would include anti-inflammatories by mouth, physical therapy, heat, ice, use of a cane walker. After reviewing the options, she wished to have the cortisone injection done for quicker relief. Libertad will go ahead and administer and document the injection. She can follow up with either myself, Libertad or Dr. Najera as an outpatient. We will continue to monitor. She is educated about the risks and benefits of the injection in her left knee. JOVANA
[2017-03-21] MEDS ORDERED: POTASSIUM CHLORIDE 20 MEQ TABCR PO SCH (20:00)
[2017-03-21] MEDS: SENNA 8.6 MG TAB PO SCH (20:20)
[2017-03-21] MEDS: BOOST VANILLA PO SCH ×2 (20:20)
[2017-03-21] MEDS: TRAZODONE HCL 50 MG TAB PO SCH (22:19)
[2017-03-22 00:15] VITALS: BP 165/93; PULSE 87; TEMP 36.5; O2SAT 91
[2017-03-22] MEDS: HEPARIN SOD 5000 UNIT/0.5 ML CARP SQ SCH (05:03)
[2017-03-22] MEDS: ACETAMINOPHEN 325 MG TAB PO PRN (05:52)
[2017-03-22 06:50] LABS: BUN/CREATININE RATIO 24.3 (10-20); CALCIUM 8.6 mg/dl (8.5-10.1); CREATININE 0.97 mg/dl (0.60-1.20); POTASSIUM 4.2 mmol/L (3.5-5.1)
[2017-03-22 07:37] VITALS: BP 140/88; PULSE 81; TEMP 36.9; O2SAT 96
[2017-03-22 07:39] VITALS: O2SAT 96
[2017-03-22] MEDS ORDERED: INDAPAMIDE 1.25 MG TAB PO ONE (08:59)
[2017-03-22] MEDS: DOCUSATE SODIUM 100 MG CAP PO SCH (09:15)
[2017-03-22] MEDS: IRBESARTAN 150 MG TAB PO SCH (09:15)
[2017-03-22] MEDS: METOPROLOL TARTRATE 100 MG TAB PO SCH (09:16)
[2017-03-22] MEDS: POLYETHYLENE (MIRALAX) 17 GM PACK PO SCH (09:16)
[2017-03-22] MEDS: FELODIPINE 5 MG TABCR PO SCH (09:16)
--- NOTE | 2017-03-22 11:08 | Orthopedic Progress Note ---
Orthopedic Progress Note Date of Service Mar 22, 2017. Subjective Reports: feeling well (Knee pain much improved. Still some amount side of her knee. She states that she can walk much more comfortably now.), Denies: chest pain, SOB, nausea / vomiting, light headedness, calf pain Objective calves soft nontender, N/V intact, capillary refill less than 2 sec., A&O x3, toes mobile Tolerates full extension of the right knee. Range of motion to 110 comfortably. No effusion right knee. Mild lateral joint line tenderness. Mild tenderness over presidential bursa. Strength 5 out of 5 right lower extremity. Distal pulses 1+. Date Time Temp Pulse Resp B/P (MAP) Pulse Ox O2 Delivery O2 Flow Rate FiO2 03/22/17 07:39 96 Room Air 03/22/17 07:37 36.9 81 14 140/88 (105) 96 Room Air 03/22/17 00:15 36.5 87 20 165/93 (117) 91 Room Air 03/21/17 23:50 Room Air 03/21/17 20:21 94 167/83 (111) 03/21/17 17:00 95 Room Air 03/21/17 15:19 36.6 85 20 156/78 (104) 95 Room Air Assessment & Plan Assessment: Acute right knee pain with effusion suspect from exacerbation of underlying arthritis and chondrocalcinosis. Status post corticosteroid injection. Plan: She may be out of bed, weightbearing as tolerated right lower extremity. Use walker to assist ambulation as needed. Ice to right knee is comfortable. Physical therapy as ordered okay for full range of motion and strengthening as tolerated. Activities of daily living as tolerated. Pain medication as needed. Okay from ortho standpoint for discharge today. Recommending follow-up in our office in approximately 3-4 weeks for clinical check. She can follow up with myself, Dr. Najera or Dr. Olguin.
--- NOTE | 2017-03-22 11:09 | Consultant Recommendations ---
Hematology Nurse Recommendations Date of Service Mar 22, 2017. Hematology Nurse Recommendations Ice to right knee as needed for pain and swelling. SHe may weight-bear as tolerated right lower extremity, use a walker to assist with walking as needed. You can do full range of motion of her right knee as tolerated. SHe may increase her activities of daily living as tolerated. Follow-up with [facility] orthopedics in 3-4 weeks. Please call [phone] to schedule appointment.
[2017-03-22] MEDS: BOOST VANILLA PO SCH ×2 (14:18)
[2017-03-22 14:19] VITALS: BP 140/88; PULSE 81; TEMP 36.9; O2SAT 96
--- NOTE | 2017-03-22 14:44 | Discharge Instructions ---
Discharge Instructions Date of Service Mar 22, 2017. Admission Reason for Admission: Cyst; Knee Pain Discharge Discharge Diagnosis / Problem: right knee pain secondary to effusion from OA and chondrocalcinosis Discharge Goals Goal(s): Improve function, Increase independence Activity Recommendations Activity Limitations: resume your previous activity (may use wheeled walker as needed) . Instructions / Follow-Up Instructions / Follow-Up F/U with Dr. Olguin in one month for f/u of knee Followup with PCP in 2 weeks, appointment set F/U with gastro within 1 month; appointment set. Current Hospital Diet Patient's current hospital diet: Regular Diet Discharge Diet Recommended Diet: Regular Diet Pending Studies Studies pending at discharge: no Medical Emergencies . Who to Call and When: Medical Emergencies: If at any time you feel your situation is an emergency, please call 911 immediately. . Non-Emergent Contact Non-Emergency issues call your: Primary Care Provider . . "Provider Documentation" section prepared by Natan Watt. . Director Of Residential Services Recommendations Director Of Residential Services Recommendations: Ice to right knee as needed for pain and swelling. He may weight-bear as tolerated right lower extremity, use a walker to assist with walking as needed. You can do full range of motion of her right knee as tolerated. He may increase her activities of daily living as tolerated. Follow-up with [facility] orthopedics in 3-4 weeks. Please call [phone] to schedule appointment. VTE Core Measure Inpt VTE Proph given/why not?: Unfractionated heparin SQ, T.E.D. Stockings, SCD 's
[2017-03-22 14:59] VITALS: BP 146/72; PULSE 84; TEMP 36.5; O2SAT 95
[2017-03-23] MEDS ORDERED: INDAPAMIDE 1.25 MG TAB PO SCH (08:00)
--- NOTE | 2017-03-23 13:42 | Discharge Summary ---
Discharge Summary Date of Service Mar 23, 2017. Discharge Summary Admission Date: Mar 20, 2017 at 16:20 Discharge Date: Mar 22, 2017 Discharge Disposition: Home Principal Diagnosis: Right knee effusion secondary to OA Problems/Secondary Diagnoses: Hypertension/ H/O diverticulitis Procedures: Right knee arthrocenthesis with steroid injection Procedure Note: Patient seen and evaluated by Dr. Olguin. A joint aspiration and injection was recommended. She agreed to proceed. She was placed in the supine position in her bed. Her right knee was identified and the superior lateral pouch was marked. Timeout verbal consent obtained. Her skin was cleansed with alcohol and I aspirated approximately 10 mL of last 1 synovial fluid from her right knee. This was not sent for culture for analysis. I then injected 3 mL of 1% lidocaine and 40 mg Kenalog. She tolerated the aspiration and injection well. Pressures applied for hemostasis. An Bran bandage was applied to her right knee for compression. She may weight-bear as tolerated and advance activities as tolerated. Recommend using walker to assist with ambulation. She did get up to go to the bathroom after the injection and it did feel improvement in her pain. I will recheck her in the morning to see how she is doing. She can continue physical therapy as ordered. Medication Reconciliation Continued Medications: Calcium Carbonate-Cholecalcife (Caltrate 600+D) 1 Tab Tab 1 TAB PO QPM Cholecalciferol (Vitamin D3) 2,000 Unit Tab 2000 UNITS PO QAM, TAB Felodipine (Felodipine ER) 10 Mg Tabcr 10 MG PO QAM Hydrocodon/Acetaminophen 5MG/300MG (Vicodin (5MG/300MG)) 1 Tab Tab 1-2 TAB PO Q6H PRN for Pain, #14 TAB Indapamide (Lozol) 1.25 Mg Tab 1.25 MG PO QAM, TAB Irbesartan (Irbesartan) 300 Mg Tab 300 MG PO QAM, TAB Metoprolol Tartrate (Lopressor) 100 Mg Tab 100 MG PO BID, TAB Senna (Senokot) 8.6 Mg Tab 2 TAB PO HS, TAB Trazodone Hcl (Trazodone) 50 Mg Tab 50 MG PO HS, TAB Discontinued Medications: Moxifloxacin Hcl (Avelox) 400 Mg Tab 400 MG PO DAILY for 7 Days, #7 TAB Discharge Exam Review of Systems: Constitutional: No fever, No chills, No sweats Respiratory: No cough, No sputum, No wheezing Cardiovascular: No chest pain, No orthopnea, No PND Abdomen: No pain, No nausea, No vomiting Musculoskeletal: + joint pain Neurologic: No memory loss, No paralysis Psychiatric: No depression symptoms, No anhedonism Physical Exam: General Appearance: WD/WN, no apparent distress Neck: supple, no adenopathy Respiratory/Chest: chest non-tender, lungs clear, normal breath sounds Cardiovascular: regular rate, rhythm, no edema Abdomen / GI: normal bowel sounds, non tender, soft Extremities: + pertinent finding (right knee: decreased effusion. normal range of motion. OA deformities) Skin: normal color Lymphatic: no adenopathy Hospital Course Right knee effusion secondary to OA in an 81 year old female with H/O hypertension, diverticulitis. 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 -Patient was offered a knee aspiration by me with an injection of steroid, after explaining to her that I am a Sports Medicine trained provider with experience in this procedure. -Goal was to limit length of stay in the hospital. -However, patient politely refused and prefers that Ortho performs the arthrocentesis. -Procedure was completed around 18:00 on 03/21/17. -Fluid did not appear to be infectious which was expected. -As patient improved after procedure she no longer required inpatient rehab which was also expected. -Patient however was given a wheeled walker for home as recommended by Physical therapy. Constipation: Senokot HS, MiraLAX daily and PRN, Colace 100 mg BID, Milk of Mag PRN HTN- UNCONTROLLED, secondary to pain/situational, and holding the lozol. - Continue Felodipine 10 mg daily, Irbesartan 300 mg daily, Lopressor 100 mg BID - restart the Lozol 1.25 mg daily due to hyponatremia. -Lozol was held for one day. This decision was made by admitting team as they were concerned with the hyponatremia of 130. -Her hyponatremia is likely chronic. Hyponatremia, likely secondary to medication: . This is likely to be chronic. Will resume Lozol, and defer management to her primary care provider as it appears that patient is closely monitored. And she is well controlled with these medications. hypokalemia likely secondary to the Lozol. Patient was replenished with Oral potassium. will likely need to monitor her potassium as an outpatient especially if she continues on Lozol. h/o diverticulitis: Completed antibiotics. will monitor. pain appears to be controlled and patient appears to be educated on her diet. Fibromyalgia: Continue Trazodone 50 mg HS DVT prophylaxis: Heparin SQ BID Total Time Spent: Greater than 30 minutes This includes examination of the patient, discharge planning, medication reconciliation, and communication with other providers. Discharge Instructions Please refer to the electronic Patient Visit Report (Discharge Instructions) for additional information. Follow-Up F/U as stated on discharge instructions. In upcoming month, patient will see gastro, Ortho and PCP. Additional Copies To Tracie Rush D.O.
== END 2017-03-22 17:45 | disposition home or self-care (01) | DRG 554 ==
LOC: EDBD 00:41 → C.EDB 00:42 → C.4E 16:20 → ENRESERV 16:56
PROVIDERS: ADMIT Family Medicine; ATTEND Internal Medicine Sports Medicine
PROC: 3E0U3GC Introduction of Other Therapeutic Substance into Joints, Percutaneous Approach (ICD-10-PCS; principal; 2017-03-21)
PROC: 3E0U3BZ Introduction of Anesthetic Agent into Joints, Percutaneous Approach (ICD-10-PCS; principal; 2017-03-21)
PROC: 0S9C3ZZ Drainage of Right Knee Joint, Percutaneous Approach (ICD-10-PCS; principal; 2017-03-21)
DX: M17.11 Unilateral primary osteoarthritis, right knee (principal); E87.1 Hypo-osmolality and hyponatremia; M11.261 Other chondrocalcinosis, right knee; M71.21 Synovial cyst of popliteal space [Baker], right knee; I16.0 Hypertensive urgency; T46.5X5A Adverse effect of other antihypertensive drugs, initial encounter; E87.6 Hypokalemia; K59.00 Constipation, unspecified; I10 Essential (primary) hypertension; M79.7 Fibromyalgia; Z51.81 Encounter for therapeutic drug level monitoring; Z79.899 Other long term (current) drug therapy; Z66 Do not resuscitate; Z87.19 Personal history of other diseases of the digestive system; Z87.891 Personal history of nicotine dependence; Z82.49 Family history of ischemic heart disease and other diseases of the circulatory system; Z83.3 Family history of diabetes mellitus

== ENCOUNTER 2018-01-19 18:16 | Inpatient (IN) | payer OTHER ==
[~2018-01-19] VITALS: Ht 160 cm; Wt 77.4 kg
[~2018-01-19 18:16] MED LIST changes: -MOXI400T2 PO
[2018-01-19] MEDS ORDERED: CEFTRIAXONE SOD INJ 1 GM ADDVIAL IV STA (18:35)
[2018-01-19] MEDS ORDERED: SODIUM CHLORIDE 0.9% 1000ML 500 ML IV STA (18:35)
[2018-01-19] MEDS ORDERED: ONDANSETRON INJ 2 MG/ML 2 ML VIAL IV STA (18:35)
[2018-01-19] MEDS ORDERED: OPTIRAY 320 IV PRN (18:45)
[2018-01-19 19:27] LABS: BASO % 0.6 %; BASO ABS # 0.04 K/uL (0-0.2); EOS % 2.8 %; HEMATOCRIT 39.5 % (37-47); HEMOGLOBIN 13.3 g/dL (12.0-16.0); IG# 0.01 K/uL (0.00-0.02); LYMPH % 28.1 %; LYMPH ABS # 2.03 K/uL (1.2-3.4); MEAN CELL VOLUME 89.6 fL (80-100); MEAN CORPUSCULAR HEMOGLOBIN 30.2 pg (25-34); MEAN CORPUSCULAR HGB CONC 33.7 g/dl (32-36); MEAN PLATELET VOLUME 9.7 fL (7.4-10.4); MONO % 10.7 %; MONO ABS # 0.77 K/uL (0.11-0.59); NEUT % 57.7 %; NEUT ABS # 4.17 K/uL (1.4-6.5); PLATELET COUNT 307 K/uL (130-400); RED CELL DISTRIBUTION WIDTH CV 13.3 % (11.5-14.5); RED CELL DISTRIBUTION WIDTH SD 43.5 fL (36.4-46.3); WHITE BLOOD COUNT 7.22 K/uL (4.8-10.8)
--- NOTE | 2018-01-19 19:34 | EMERGENCY ROOM VISIT NOTE ---
History Report prepared by Hero: Roberto Abdul Under the Supervision of: Dr. Kris Griffith M.D. First contact with patient: 18:24 Stated Complaint: WEAK KNEES, DIFFICULTY STANDING History of Present Illness The patient is a 82 year old female who presents to the Emergency Room via ambulance with complaints of constant weakness and shaking beginning around 17: 00 today, around 1.5 hours ago. The patient reports that she was diagnosed with diverticulitis yesterday by her PCP and was given Avelox, noting that she took one pill yesterday and one around 14:00 today. She states that starting at 17: 00 today, she began to feel "weird" and lightheaded. She reports that she was unable to rise from a chair and unable to support any weight on her legs, even with help. She also notes that she has been continuously shaking since the onset of her symptoms, but denies chills, urinary symptoms, fevers, or shortness of breath. She denies any history of these symptoms. The patient reports that beginning 4 days ago she has been experiencing abdominal discomfort that she describes as a "sore hurt". She rates her abdominal discomfort yesterday at a severity of 3/10. She states that she is not currently experiencing any discomfort, but notes that it worsens with movement. She reports that she was hospitalized with diverticulitis 4 times last summer. She states that she had a colonoscopy after her most recent admission that was unremarkable aside from one polyp. She reports that she never had a surgery for diverticulitis, but notes she had surgery for a bowel obstruction, and none of her bowel was removed. The patient notes she has been given Avelox once in the past. Source of History: patient Onset: 1.5 hours ago at 17:00 Position: other (global, especially noted in legs) Quality: other (weakness and shaking) Timing: constant Associated Symptoms: No fevers, No chills, No SOB, No urinary symptoms Review of Systems See HPI for pertinent positives & negatives. A total of 10 systems reviewed and were otherwise negative. Past Medical & Surgical Medical Problems: (1) Bowel obstruction (2) HTN (hypertension) (3) Leaky heart valve Surgical Problems: (1) H/O laminectomy Family History Cancer Diabetes mellitus Hypertension Lung disease Social History Smoking Status: Former Smoker Marital Status: single Housing Status: lives alone Occupation Status: retired Current/Historical Medications Scheduled Acetaminophen (Tylenol), 500 MG PO PRN Calcium Carbonate-Cholecalcife (Caltrate 600+D), 1 TAB PO QPM Cholecalciferol (Vitamin D3), 2,000 UNITS PO QAM Felodipine (Felodipine ER), 10 MG PO QAM Indapamide (Lozol), 1.25 MG PO QAM Irbesartan (Irbesartan), 300 MG PO QAM Metoprolol Tartrate (Lopressor), 100 MG PO BID Moxifloxacin HCl (Moxifloxacin HCl), 400 MG PO DAILY Senna (Senokot), 2 TAB PO HS Trazodone Hcl (Trazodone), 50 MG PO HS Allergies Coded Allergies: Penicillins (Verified Allergy, Unknown, HIVES, 03/20/17) Ciprofloxacin (Unverified Adverse Reaction, Severe, "MADE ME DEATHLY ILL" , 03/20/17) Metronidazole (Unverified Adverse Reaction, Severe, "MADE ME DEATHLY ILL" , 03/20/17) Physical Exam Vital Signs Date Time Temp Pulse Resp B/P (MAP) Pulse Ox O2 Delivery O2 Flow Rate FiO2 01/19/18 20:49 199/137 01/19/18 19:51 84 19 186/104 95 Room Air 01/19/18 18:35 89 01/19/18 18:25 36.5 89 20 175/87 95 Room Air Physical Exam GENERAL: Patient is in no acute distress. HEENT: No acute trauma, normocephalic atraumatic, mucous membranes moist, no nasal congestion, no scleral icterus. NECK: No stridor, no adenopathy, no meningismus, trachea is midline. LUNGS: Clear to auscultation bilaterally, no wheeze, no rhonchi, breath sounds equal. HEART: Without murmurs gallops or rubs, regular rate and rhythm. ABDOMEN: Soft, moderately tender in left lateral abdomen and left lower quadrant , bowel sounds positive, no hernias, no peritonitis. EXTREMITIES: No cyanosis or edema, full range of motion of all the joints without pain or difficulty, no signs for acute trauma. NEUROLOGIC: Oriented x 3, no acute motor or sensory deficits, no focal weakness. Some extremity tremor noted. No cerebellar deficits or pronator drift. SKIN: No rash, no jaundice, no diaphoresis. Medical Decision & Procedures ER Provider Diagnostic Interpretation: Radiology results as stated below per my review and radiologist interpretation: ABDOMEN AND PELVIS CT WITH IV CONTRAST CT DOSE: 532.36 mGy.cm HISTORY: Acute generalized abdominal pain ABD PAIN, POSS DIVERTIC, IV CONTRAST ONLY TECHNIQUE: Multiaxial CT images of the abdomen and pelvis were performed following the use of intravenous contrast. A dose lowering technique was utilized adhering to the principles of ALARA. COMPARISON STUDY: CT abdomen and pelvis 03/17/2017 FINDINGS: Mild dependent subsegmental atelectasis/scarring. No pneumatosis or pneumoperitoneum. Imaged inferior cardiac chambers are moderately enlarged. There is thinning of the lateral wall left ventricular apex with a 1.3 cm area of subtle aneurysmal dilation measuring 1.3 cm, image 24 series 3. Unchanged appearance of the liver with calcifications due to the tarik hepatis. No focal hepatic mass lesions. The gallbladder is unremarkable. Spleen, pancreas and right adrenal gland are unremarkable. Nodular thickening of the left adrenal gland. Mild cortical thinning about the left kidney. Mild nonspecific bilateral perinephric stranding. No renal calculi or obstructive uropathy. Mild lateral distention. Uterus and left adnexum are unremarkable. 1.9 cm statistically benign cystic lesion about the right adnexum appears unchanged. Moderate calcification of the aorta without aneurysm. The IVC is unremarkable. No pathologically enlarged lymph nodes identified. Small sliding-type hiatal hernia. No bowel obstruction. Extensive colonic diverticulosis with circumferential wall thickening seen throughout the sigmoid colon suggesting muscular peripherally from chronic diverticulosis. No definite acute inflammatory changes to suggest acute diverticulitis. No drainable fluid collections. Terminal ileum is unremarkable. No ascites or mesenteric inflammatory changes. Prior ventral abdominal wall herniorrhaphy. Small fat filled periumbilical, diastases 1.4 cm. Probable perineural root sleeve cysts about the sacrum measure up to 2.8 cm with benign bony remodeling changes. Demineralized appearance of the bones. Multilevel spondylitic spurring and facet arthropathy. Chondrocalcinosis of the disc spaces at L4-L5 and L5-S1. IMPRESSION: 1. Colonic diverticulosis with chronic wall thickening of the sigmoid colon. No definite evidence of acute diverticulitis. 2. No bowel obstruction or pneumoperitoneum. 3. 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 4. Additional findings as above. Electronically signed by: Christ Gonsalez M.D. 01/19/2018 8:53 PM Dictated Date/Time: 01/19/2018 8:44 PM Laboratory Results 01/19/18 19:10 Red Blood Count 4.41, Mean Corpuscular Volume 89.6, Mean Corpuscular Hemoglobin 30.2, Mean Corpuscular Hemoglobin Concent 33.7, Mean Platelet Volume 9.7, Neutrophils (%) (Auto) 57.7, Lymphocytes (%) (Auto) 28.1, Monocytes (%) (Auto) 10.7, Eosinophils (%) (Auto) 2.8, Basophils (%) (Auto) 0.6, Neutrophils # (Auto ) 4.17, Lymphocytes # (Auto) 2.03, Monocytes # (Auto) 0.77, Eosinophils # (Auto ) 0.20, Basophils # (Auto) 0.04 01/19/18 19:10 Test 01/19/18 19:10 01/19/18 19:48 White Blood Count 7.22 K/uL (4.8-10.8) Red Blood Count 4.41 M/uL (4.2-5.4) Hemoglobin 13.3 g/dL (12.0-16.0) Hematocrit 39.5 % (37-47) Mean Corpuscular Volume 89.6 fL (80-100) Mean Corpuscular Hemoglobin 30.2 pg (25-34) Mean Corpuscular Hemoglobin Concent 33.7 g/dl (32-36) Platelet Count 307 K/uL (130-400) Mean Platelet Volume 9.7 fL (7.4-10.4) Neutrophils (%) (Auto) 57.7 % Lymphocytes (%) (Auto) 28.1 % Monocytes (%) (Auto) 10.7 % Eosinophils (%) (Auto) 2.8 % Basophils (%) (Auto) 0.6 % Neutrophils # (Auto) 4.17 K/uL (1.4-6.5) Lymphocytes # (Auto) 2.03 K/uL (1.2-3.4) Monocytes # (Auto) 0.77 K/uL (0.11-0.59) Eosinophils # (Auto) 0.20 K/uL (0-0.5) Basophils # (Auto) 0.04 K/uL (0-0.2) RDW Standard Deviation 43.5 fL (36.4-46.3) RDW Coefficient of Variation 13.3 % (11.5-14.5) Immature Granulocyte % (Auto) 0.1 % Immature Granulocyte # (Auto) 0.01 K/uL (0.00-0.02) Anion Gap 12.0 mmol/L (3-11) Est Creatinine Clear Calc Drug Dose 45.5 ml/min Estimated GFR () 64.2 Estimated GFR (Non- 55.4 BUN/Creatinine Ratio 24.5 (10-20) Lactic Acid Level 1.2 mmol/L (0.4-2.0) Calcium Level 9.2 mg/dl (8.5-10.1) Magnesium Level 1.8 mg/dl (1.8-2.4) Total Bilirubin 0.6 mg/dl (0.2-1) Aspartate Amino Transf (AST/SGOT) 16 U/L (15-37) Alanine Aminotransferase (ALT/SGPT) 19 U/L (12-78) Alkaline Phosphatase 75 U/L (45-117) Troponin I < 0.015 ng/ml (0-0.045) Total Protein 7.2 gm/dl (6.4-8.2) Albumin 3.6 gm/dl (3.4-5.0) Globulin 3.6 gm/dl (2.5-4.0) Albumin/Globulin Ratio 1.0 (0.9-2) Lipase 107 U/L (73-393) Urine Color YELLOW Urine Appearance CLEAR (CLEAR) Urine pH 7.0 (4.5-7.5) Urine Specific [place] 1.006 (1.000-1.030) Urine Protein 1+ (NEG) Urine Glucose (UA) NEG (NEG) Urine Ketones NEG (NEG) Urine Occult Blood TRACE (NEG) Urine Nitrite NEG (NEG) Urine Bilirubin NEG (NEG) Urine Urobilinogen NEG (NEG) Urine Leukocyte Esterase NEG (NEG) Urine WBC (Auto) 1-5 /hpf (0-5) Urine RBC (Auto) 0-4 /hpf (0-4) Urine Hyaline Casts (Auto) 0 /lpf (0-5) Urine Epithelial Cells (Auto) 0-5 /lpf (0-5) Urine Bacteria (Auto) NEG (NEG) Laboratory results reviewed by me. Medications Administered Medications (Trade) Dose Ordered Sig/Luis Route Start Time Stop Time Status Last Admin Dose Admin Sodium Chloride 500 ml @ 999 mls/hr Q31M STAT IV 01/19/18 18:35 01/19/18 19:05 DC 01/19/18 18:35 999 MLS/HR Ondansetron HCl (Zofran Inj) 4 mg NOW STAT IV 01/19/18 18:35 01/19/18 18:40 DC 01/19/18 18:35 4 MG Ceftriaxone Sodium (Rocephin Inj) 1 gm NOW STAT IV 01/19/18 18:35 01/19/18 18:40 DC 01/19/18 18:35 1 GM Metoprolol Tartrate (Lopressor Tab) 100 mg NOW STAT PO 01/19/18 20:38 01/19/18 20:39 DC 01/19/18 20:38 100 MG ECG Per My Interpretation Indication: weakness Rate (beats per minute): 88 Rhythm: sinus rhythm (with PVCs) Findings: other (Old septal infarct. LVH is present. No ST elevations.) ED Course 1825: The patient was evaluated in room C5. A complete history and physical exam was performed. 1834: Ordered Rocephin 1 gm IV, Zofran 4 mg IV, Sodium Chloride 500 ml @ 999 mls /hr IV 2036: I updated with the patient, who states she is currently feeling okay. I will give the patient her nighttime blood pressure medication. 2037: Ordered Lopressor 100 mg PO 8: I updated the patient on her current results. 2299: I consulted Dr. Lo - [facility] Hospitalist. He will reevaluate the patient for hospitalization. Medical Decision Differential diagnosis: Diverticulitis, abscess, medication reaction, sepsis, dehydration, UTI, electrolyte imbalance, anemia, [place] There is no leukocytosis or concerning anemia. No significant electrolyte abnormality, kidney failure, hepatitis or pancreatitis. Urinalysis does not show infection. Lactic acid level is not elevated making sepsis less likely. EKG shows a sinus rhythm with PVCs, there is LVH. No acute ischemic change on EKG. Cardiac enzyme testing 1 is not consistent with acute cardiac injury. Abdominal and pelvis CT shows some diverticulosis and some colonic thickening, no abscess or bowel obstruction, no findings suggestive of acute diverticulitis. The patient received IV saline, she was given IV ceftriaxone as antibiotic coverage. She received IV Zofran. She was given her normal dose of oral metoprolol, she was due for this medication, she had missed her nighttime dose. Patient is currently resting comfortably. She presents with weakness and the inability to stand. She is on Avelox for diverticulitis. She persists with weakness and cannot stand. She could not make it to the bathroom on her own, she does live alone. I suspect she is having a reaction to the Avelox, she has had a similar reaction before with antibiotics--she thinks it may have been from Cipro or Flagyl. The patient is being seen by the hospitalist for a hospital stay and further care. She is not safe for discharge. I spoke to the patient and to case management. Medication Reconcilliation Current Medication List: was personally reviewed by me Blood Pressure Screening Patient's blood pressure: Elevated blood pressure referred to hospitalist Consults Time Called: 2255 Consulting Physician: Dr. Wally Wheat [facility] Hospitalist Returned Call: [address] Wally Wheat [facility] Hospitalist. He will reevaluate the patient for hospitalization. Impression Primary Impression: Weakness Additional Impressions: Diverticulitis Medication reaction Hypertension Scribe Attestation The scribe's documentation has been prepared under my direction and personally reviewed by me in its entirety. I confirm that the note above accurately reflects all work, treatment, procedures, and medical decision making performed by me. Departure Information Dispostion Being Evaluated By Hospitalist Referrals Tracie Rush D.O. (PCP) Problem Qualifiers
[2018-01-19 19:53] LABS: ALBUMIN 3.6 gm/dl (3.4-5.0); ALKALINE PHOSPHATASE 75 U/L (45-117); ALT/SGPT 19 U/L (12-78); AST/SGOT 16 U/L (15-37); BLOOD UREA NITROGEN 23 mg/dl (7-18); CALCIUM 9.2 mg/dl (8.5-10.1); CARBON DIOXIDE 26 mmol/L (21-32); CREATININE 0.95 mg/dl (0.60-1.20); GLUCOSE 117 mg/dl (70-99); LIPASE 107 U/L (73-393); POTASSIUM 3.3 mmol/L (3.5-5.1); SODIUM 133 mmol/L (136-145); TOTAL PROTEIN 7.2 gm/dl (6.4-8.2)
[2018-01-19] MEDS ORDERED: MOXI1TAB7 PO (20:16)
[2018-01-19] MEDS ORDERED: ACET-1256 PO (20:18)
[2018-01-19] MEDS ORDERED: METOPROLOL TARTRATE 50 MG TAB PO STA (20:38)
--- NOTE | 2018-01-19 20:55 | DIAGNOSTIC IMAGING REPORT ---
ABDOMEN AND PELVIS CT WITH IV CONTRAST CT DOSE: 532.36 mGy.cm HISTORY: Acute generalized abdominal pain ABD PAIN, POSS DIVERTIC, IV CONTRAST ONLY TECHNIQUE: Multiaxial CT images of the abdomen and pelvis were performed following the use of intravenous contrast. A dose lowering technique was utilized adhering to the principles of ALARA. COMPARISON STUDY: CT abdomen and pelvis 03/17/2017 FINDINGS: Mild dependent subsegmental atelectasis/scarring. No pneumatosis or pneumoperitoneum. Imaged inferior cardiac chambers are moderately enlarged. There is thinning of the lateral wall left ventricular apex with a 1.3 cm area of subtle aneurysmal dilation measuring 1.3 cm, image 24 series 3. Unchanged appearance of the liver with calcifications due to the tarik hepatis. No focal hepatic mass lesions. The gallbladder is unremarkable. Spleen, pancreas and right adrenal gland are unremarkable. Nodular thickening of the left adrenal gland. Mild cortical thinning about the left kidney. Mild nonspecific bilateral perinephric stranding. No renal calculi or obstructive uropathy. Mild lateral distention. Uterus and left adnexum are unremarkable. 1.9 cm statistically benign cystic lesion about the right adnexum appears unchanged. Moderate calcification of the aorta without aneurysm. The IVC is unremarkable. No pathologically enlarged lymph nodes identified. Small sliding-type hiatal hernia. No bowel obstruction. Extensive colonic diverticulosis with circumferential wall thickening seen throughout the sigmoid colon suggesting muscular peripherally from chronic diverticulosis. No definite acute inflammatory changes to suggest acute diverticulitis. No drainable fluid collections. Terminal ileum is unremarkable. No ascites or mesenteric inflammatory changes. Prior ventral abdominal wall herniorrhaphy. Small fat filled periumbilical, diastases 1.4 cm. Probable perineural root sleeve cysts about the sacrum measure up to 2.8 cm with benign bony remodeling changes. Demineralized appearance of the bones. Multilevel spondylitic spurring and facet arthropathy. Chondrocalcinosis of the disc spaces at L4-L5 and L5-S1. IMPRESSION: 1. Colonic diverticulosis with chronic wall thickening of the sigmoid colon. No definite evidence of acute diverticulitis. 2. No bowel obstruction or pneumoperitoneum. 3. 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 4. Additional findings as above. Electronically signed by: Christ Gonsalez M.D. 01/19/2018 8:53 PM Dictated Date/Time: 01/19/2018 8:44 PM
[2018-01-19] MEDS ORDERED: ONDANSETRON INJ 2 MG/ML 2 ML VIAL IV PRN (22:15)
[2018-01-19] MEDS ORDERED: MAGNESIUM HYDROXIDE SUSP 30 ML UDC PO PRN (22:15)
[2018-01-19] MEDS ORDERED: POLYETHYLENE (MIRALAX) 17 GM PACK PO PRN (22:15)
[2018-01-19] MEDS ORDERED: ALUMINUM/MAGNESIUM/SIMETH (MAALOX MAX) 30 ML UDC PO PRN (22:15)
--- NOTE | 2018-01-19 22:35 | History and Physical ---
History & Physical Date & Time of Service: Jan 19, 2018 at 22:35 Chief Complaint: Weak Knees, Difficulty Standing Primary Care Physician: Tracie Rush D.O. History of Present Illness Source: patient, family, clinic records, hospital records 82 yo F with PMHx of HTN , Diverticulosis complicated by repeated bouts of Diverticulitis presenting with generalized weakness, abdominal pain x 6 days . Patient was seen Jan 18 at [facility] for 4 day history of LLQ pain, nausea with LLQ tenderness on exam consistent with diverticulitis. She was empirically placed on Avelox due to previous adverse reactions to Flagyl while on Cipro/Flagyl in addition to PCN allergy which precluded use of Augmentin. Patient reports she took Avelox at 2 PM on day of arrival. Around 4 -5 PM, she became progressively more weak and confused. She felt sensation that her legs were "giving out" According to patient's daughter, she appeared confused and was "shaking" and feels it is reaction to Avelox. 1 year ago when placed on Cipro/Flagyl regimen, Patient reports a similar acute weakness, confusion reaction. Since then, has not been placed Cipro or Flagyl, however reaction was attributed to fall in clinic chart review. Patient has tolerated Avelox previously in the outpatient setting. In the ED patient was hypertensive on arrival, afebrile without leukocytosis. Patient was mild hypokalemic at 3.3. 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 She received Metoprolol 100 mg in ED. She received Ceftriaxone 1 gm IV Past Medical/Surgical History Medical Problems: (1) Bowel obstruction (2) Cyst (3) Diverticulitis (4) HTN (hypertension) (5) Knee pain (6) Leaky heart valve Surgical Problems: (1) H/O laminectomy Family History Cancer Diabetes mellitus Hypertension Lung disease Social History Smoking Status: Former Smoker Smokeless Tobacco Use: No Alcohol Use: none Drug Use: none Marital Status: single Housing status: lives alone Occupational Status: retired Immunizations History of Influenza Vaccine: Unknown History of Tetanus Vaccine?: Unknown History of Pneumococcal: Unknown History of Hepatitis B Vaccine: Unknown Allergies Coded Allergies: Penicillins (Verified Allergy, Unknown, HIVES, 03/20/17) Ciprofloxacin (Unverified Adverse Reaction, Severe, "MADE ME DEATHLY ILL" , 03/20/17) Metronidazole (Unverified Adverse Reaction, Severe, "MADE ME DEATHLY ILL" , 03/20/17) Home Medications Scheduled Acetaminophen (Tylenol), 500 MG PO PRN Calcium Carbonate-Cholecalcife (Caltrate 600+D), 1 TAB PO QPM Cholecalciferol (Vitamin D3), 2,000 UNITS PO QAM Felodipine (Felodipine ER), 10 MG PO QAM Indapamide (Lozol), 1.25 MG PO QAM Irbesartan (Irbesartan), 300 MG PO QAM Metoprolol Tartrate (Lopressor), 100 MG PO BID Moxifloxacin HCl (Moxifloxacin HCl), 400 MG PO DAILY Senna (Senokot), 2 TAB PO HS Trazodone Hcl (Trazodone), 50 MG PO HS Review of Systems Constitutional: + weakness, + fatigue, No fever, No chills Respiratory: No cough, No sputum, No shortness of breath Cardiovascular: No chest pain, No edema, No palpitations Abdomen: + pain (LLQ), + nausea, No vomiting, No diarrhea, No GI bleeding Genitourinary - Female: No dysuria, No urinary frequency, No urinary urgency Neurologic: No numbness/tingling, No vertigo Integumentary: No rash, No itch Physical Exam Vital Signs Date Time Temp Pulse Resp B/P (MAP) Pulse Ox O2 Delivery O2 Flow Rate FiO2 01/19/18 20:49 199/137 01/19/18 19:51 84 19 186/104 95 Room Air 01/19/18 18:35 89 01/19/18 18:25 36.5 89 20 175/87 95 Room Air GENERAL: alert, no distress, EYE EXAM: normal conjunctiva, PERRL and EOM's grossly intact OROPHARYNX: no exudate, no erythema, lips, buccal mucosa, and tongue normal and mucous membranes are moist NECK: supple, no nuchal rigidity, no adenopathy, non-tender LUNGS: Clear to auscultation. Normal chest wall mechanics HEART: no murmurs, S1 normal and S2 normal ABDOMEN: abdomen soft LLQ Tenderness to palpation, normo-active bowel sounds, no masses, no rebound or guarding. BACK: Back is symmetrical on inspection and there is no deformity SKIN: no rashes and no bruising UPPER EXTREMITIES: upper extremities are grossly normal. LOWER EXTREMITIES: No pitting edema. NEURO EXAM: Normal sensorium, cranial nerves II-XII intact, normal speech, no focal weakness of arms. legs. Diagnostics Laboratory Results Results Past 24 Hours Test 01/19/18 19:10 01/19/18 19:48 Range/Units White Blood Count 7.22 4.8-10.8 K/uL Red Blood Count 4.41 4.2-5.4 M/uL Hemoglobin 13.3 12.0-16.0 g/dL Hematocrit 39.5 37-47 % Mean Corpuscular Volume 89.6 80-100 fL Mean Corpuscular Hemoglobin 30.2 25-34 pg Mean Corpuscular Hemoglobin Concent 33.7 32-36 g/dl Platelet Count 307 130-400 K/uL Mean Platelet Volume 9.7 7.4-10.4 fL Neutrophils (%) (Auto) 57.7 % Lymphocytes (%) (Auto) 28.1 % Monocytes (%) (Auto) 10.7 % Eosinophils (%) (Auto) 2.8 % Basophils (%) (Auto) 0.6 % Neutrophils # (Auto) 4.17 1.4-6.5 K/uL Lymphocytes # (Auto) 2.03 1.2-3.4 K/uL Monocytes # (Auto) 0.77 0.11-0.59 K/uL Eosinophils # (Auto) 0.20 0-0.5 K/uL Basophils # (Auto) 0.04 0-0.2 K/uL RDW Standard Deviation 43.5 36.4-46.3 fL RDW Coefficient of Variation 13.3 11.5-14.5 % Immature Granulocyte % (Auto) 0.1 % Immature Granulocyte # (Auto) 0.01 0.00-0.02 K/uL Sodium Level 133 136-145 mmol/L Potassium Level 3.3 3.5-5.1 mmol/L Chloride Level 95 98-107 mmol/L Carbon Dioxide Level 26 21-32 mmol/L Anion Gap 12.0 3-11 mmol/L Blood Urea Nitrogen 23 7-18 mg/dl Creatinine 0.95 0.60-1.20 mg/dl Est Creatinine Clear Calc Drug Dose 45.5 ml/min Estimated GFR () 64.2 Estimated GFR (Non- 55.4 BUN/Creatinine Ratio 24.5 10-20 Random Glucose 117 70-99 mg/dl Lactic Acid Level 1.2 0.4-2.0 mmol/L Calcium Level 9.2 8.5-10.1 mg/dl Magnesium Level 1.8 1.8-2.4 mg/dl Total Bilirubin 0.6 0.2-1 mg/dl Aspartate Amino Transf (AST/SGOT) 16 15-37 U/L Alanine Aminotransferase (ALT/SGPT) 19 12-78 U/L Alkaline Phosphatase 75 45-117 U/L Troponin I < 0.015 0-0.045 ng/ml Total Protein 7.2 6.4-8.2 gm/dl Albumin 3.6 3.4-5.0 gm/dl Globulin 3.6 2.5-4.0 gm/dl Albumin/Globulin Ratio 1.0 0.9-2 Lipase 107 73-393 U/L Urine Color YELLOW Urine Appearance CLEAR CLEAR Urine pH 7.0 4.5-7.5 Urine Specific [place] 1.006 1.000-1.030 Urine Protein 1+ NEG Urine Glucose (UA) NEG NEG Urine Ketones NEG NEG Urine Occult Blood TRACE NEG Urine Nitrite NEG NEG Urine Bilirubin NEG NEG Urine Urobilinogen NEG NEG Urine Leukocyte Esterase NEG NEG Urine WBC (Auto) 1-5 0-5 /hpf Urine RBC (Auto) 0-4 0-4 /hpf Urine Hyaline Casts (Auto) 0 0-5 /lpf Urine Epithelial Cells (Auto) 0-5 0-5 /lpf Urine Bacteria (Auto) NEG NEG Microbiology Results 01/19/18 Blood Culture, Received Pending 01/19/18 Blood Culture, Received Pending Diagnostic Radiology ABDOMEN AND PELVIS CT WITH IV CONTRAST CT DOSE: 532.36 mGy.cm HISTORY: Acute generalized abdominal pain ABD PAIN, POSS DIVERTIC, IV CONTRAST ONLY TECHNIQUE: Multiaxial CT images of the abdomen and pelvis were performed following the use of intravenous contrast. A dose lowering technique was utilized adhering to the principles of ALARA. COMPARISON STUDY: CT abdomen and pelvis 03/17/2017 FINDINGS: Mild dependent subsegmental atelectasis/scarring. No pneumatosis or pneumoperitoneum. Imaged inferior cardiac chambers are moderately enlarged. There is thinning of the lateral wall left ventricular apex with a 1.3 cm area of subtle aneurysmal dilation measuring 1.3 cm, image 24 series 3. Unchanged appearance of the liver with calcifications due to the tarik hepatis. No focal hepatic mass lesions. The gallbladder is unremarkable. Spleen, pancreas and right adrenal gland are unremarkable. Nodular thickening of the left adrenal gland. Mild cortical thinning about the left kidney. Mild nonspecific bilateral perinephric stranding. No renal calculi or obstructive uropathy. Mild lateral distention. Uterus and left adnexum are unremarkable. 1.9 cm statistically benign cystic lesion about the right adnexum appears unchanged. Moderate calcification of the aorta without aneurysm. The IVC is unremarkable. No pathologically enlarged lymph nodes identified. Small sliding-type hiatal hernia. No bowel obstruction. Extensive colonic diverticulosis with circumferential wall thickening seen throughout the sigmoid colon suggesting muscular peripherally from chronic diverticulosis. No definite acute inflammatory changes to suggest acute diverticulitis. No drainable fluid collections. Terminal ileum is unremarkable. No ascites or mesenteric inflammatory changes. Prior ventral abdominal wall herniorrhaphy. Small fat filled periumbilical, diastases 1.4 cm. Probable perineural root sleeve cysts about the sacrum measure up to 2.8 cm with benign bony remodeling changes. Demineralized appearance of the bones. Multilevel spondylitic spurring and facet arthropathy. Chondrocalcinosis of the disc spaces at L4-L5 and L5-S1. IMPRESSION: 1. Colonic diverticulosis with chronic wall thickening of the sigmoid colon. No definite evidence of acute diverticulitis. 2. No bowel obstruction or pneumoperitoneum. 3. 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 4. Additional findings as above. Electronically signed by: Christ Gonsalez M.D. 01/19/2018 8:53 PM Dictated Date/Time: 01/19/2018 8:44 PM EKG Sinus Rhythm with PVCs Impression Assessment and Plan 82 yo F with PMHx of HTN , Diverticulosis complicated by repeated bouts of Diverticulitis presenting clinically diagnosed Diverticulitis recurrence s/p initiation of Avelox one day prior to arrival presenting with progressive weakness, confusion Acute Weakness, Confusion - possibly secondary to medication reaction from Avelox given similarity to previous reaction to Cipro/Flagyl regimen - lack of focal weakness or other neurological signs makes CVA unlikely, CBC unremarkable, TSH ordered - Avelox held , given Ceftriaxone in the ED - symptoms improving from earlier in the day - PT/OT LLQ pain, History of Recurrent Diverticulitis, Nausea - s/p 2 doses of Avelox ( 400 mg daily ) priot to arrival preceding acute onset weakness - Initially added Clindamycin to Ceftriaxone, then switched to Ertapenem for better gram neg anaerobe coverage - GI consulted ( Dr. Andre sees patient in outpatient setting) - IV Zofran prn , Tylenol prn HTN - Continue Metoprolol, Irbesartan DVT PPX: Heparin Code Status: Full Resuscitation Attending addendum: I have physically seen this patient, have supervised the medical residents activities, and agree with the H&P unless as otherwise noted. Assessment and Plan: Weakness/confusion-- Admit to nonmonitored bed. Consult PT/OT Treat diverticulitis. Place on IV fluids for rehydration. Recurrent diverticulitis with nausea-- Hold Avelox. Placed on ertapenem and clindamycin IV. Consult gastroenterology Dr. Andre Hypertension-- Continue metoprolol and irbesartan with hold parameters. Advanced Directives Existing Advance Directive: No Existing Living Will: No Resuscitation Status VTE Prophylaxis Will order VTE Prophylaxis: Yes Note Total Time: Critical Care 30 - 74 minutes Resident Tracking Resident Involvement: Resident Care Provided Care Provided: Adult Hospital Medicine
[2018-01-19] MEDS ORDERED: POTASSIUM CHLORIDE 10 MEQ TABCR PO STA (22:41)
[2018-01-20] VITALS (8 sets, daily range): BP systolic 129–193; BP diastolic 82–93; PULSE 69–89; TEMP 36.4–36.8; O2SAT 93–95; Ht 160 cm; Wt 77.4 kg
[2018-01-20] MEDS ORDERED: CLINDAMYCIN IV 600 MG in DEXTROSE 5% 50ML 50 ML IV ONE ×2 (00:30→12:30)
[2018-01-20 00:54] LABS: PTT PATIENT 27.1 SECONDS (21.0-31.0)
[2018-01-20] MEDS ORDERED: METOPROLOL TARTRATE 50 MG TAB PO ONE (01:00)
[2018-01-20] MEDS: ACETAMINOPHEN 325 MG TAB PO PRN ×2 (01:10→14:00)
[2018-01-20] MEDS: SODIUM CHLORIDE 0.9% 1000ML 1,000 ML IV SCH ×2 (01:11→14:02)
[2018-01-20] MEDS: ERTAPENEM IV 1,000 MG in SODIUM CHLOR 0.9% AD-VAN 50ML 50 ML IV SCH (01:46)
[2018-01-20] MEDS: HEPARIN SOD 5000 UNIT/0.5 ML CARP SQ SCH ×3 (01:46→20:54)
[2018-01-20 07:54] LABS: BASO % 0.5 %; BASO ABS # 0.04 K/uL (0-0.2); EOS ABS # 0.23 K/uL (0-0.5); HEMATOCRIT 40.7 % (37-47); HEMOGLOBIN 14.1 g/dL (12.0-16.0); IG# 0.01 K/uL (0.00-0.02); LYMPH % 27.6 %; LYMPH ABS # 2.11 K/uL (1.2-3.4); MEAN CELL VOLUME 89.6 fL (80-100); MEAN CORPUSCULAR HEMOGLOBIN 31.1 pg (25-34); MEAN CORPUSCULAR HGB CONC 34.6 g/dl (32-36); MEAN PLATELET VOLUME 9.4 fL (7.4-10.4); MONO % 11.1 %; MONO ABS # 0.85 K/uL (0.11-0.59); NEUT % 57.7 %; NEUT ABS # 4.41 K/uL (1.4-6.5); PLATELET COUNT 283 K/uL (130-400); RED CELL DISTRIBUTION WIDTH CV 13.4 % (11.5-14.5); RED CELL DISTRIBUTION WIDTH SD 44.1 fL (36.4-46.3); WHITE BLOOD COUNT 7.65 K/uL (4.8-10.8)
[2018-01-20] MEDS: METOPROLOL TARTRATE 100 MG TAB PO SCH ×2 (08:00→20:52)
[2018-01-20] MEDS: IRBESARTAN 150 MG TAB PO SCH (08:00)
[2018-01-20] MEDS: INDAPAMIDE 1.25 MG TAB PO SCH (08:00)
[2018-01-20] MEDS: FELODIPINE 5 MG TABCR PO SCH (08:00)
[2018-01-20] MEDS ORDERED: CLINDAMYCIN IV 600 MG in DEXTROSE 5% 50ML 50 ML IV SCH (08:00)
[2018-01-20 08:34] LABS: CALCIUM 9.2 mg/dl (8.5-10.1); CREATININE 0.86 mg/dl (0.60-1.20); POTASSIUM 3.7 mmol/L (3.5-5.1)
--- NOTE | 2018-01-20 13:32 | ECHOCARDIOGRAM REPORT ---
*NOTICE TO RECEIVING DEMOCRAT AGENCY This information is strictly Confidential and protected under [place] law. [place] law prohibits you from making any further disclosure of this information unless further disclosure is expressly permitted by the written consent of the person to whom it pertains or is authorized by law. A general authorization for the release of medical or other information is not sufficient for this purpose. Hospital accepts no responsibility if the information is made available to any other person, INCLUDING THE PATIENT. Interpretation Summary * Name: MANNIE CAMARENA Study Date: 01/20/2018 10:42 AM BP: 193/91 mmHg * Patient Location: [facility] HR: 89 * : 1935 (M/d/yyyy) Gender: Female Height: 62 in * Age: 82 yrs Ethnicity: CA Weight: 180 lb * Ordering Physician: Sam Lomax * Referring Physician: Self, Referred * Performed By: Dahlia Sandoval RDCS * * Reason For Study: Aneurysm, History of Valvular Insufficiency * BSA: 1.8 m2 * -- Conclusions -- * The left ventricle is normal in size. * There is mild concentric left ventricular hypertrophy. * Left ventricular systolic function is low normal. * There is borderline global hypokinesis of the left ventricle. * Aortic valve sclerosis mild, without significant aortic valvular stenosis. * Mild aortic regurgitation. * There is mild to moderate mitral regurgitation. * There is no pericardial effusion. * Normal inferior vena cava size and collapsability with sniff indicates a normal right atrial pressure of 3 mmHg * Mildly dilated ascending aorta. * Right ventricular systolic pressure is normal. * Grade I diastolic dysfunction, (abnormal relaxation pattern). * Elevated LA Pressures * The patient is markedly hypertensive during study. Procedure Details * A complete two-dimensional transthoracic echocardiogram was performed (2D, M-mode, Doppler and color flow Doppler). Left Ventricle * The left ventricle is normal in size. * There is mild concentric left ventricular hypertrophy. * Ejection Fraction = 50-55%. * Left ventricular systolic function is low normal. * There is borderline global hypokinesis of the left ventricle. Right Ventricle * The right ventricle is normal in size and function. Atria * The left atrium is moderately dilated. * The right atrium is moderately dilated. Mitral Valve * The mitral valve is grossly normal. * There is mild to moderate mitral regurgitation. Tricuspid Valve * The tricuspid valve anatomy is normal. * There is trace tricuspid regurgitation. * Right ventricular systolic pressure is normal. Aortic Valve * Aortic valve sclerosis mild, without significant aortic valvular stenosis. * Mild aortic regurgitation. Pulmonic Valve * The pulmonic valve is not well seen, but is grossly normal. * Mild pulmonic valvular regurgitation. Great Vessels * The aortic root is normal size. * Mildly dilated ascending aorta. Pericardium/Pleural * There is no pericardial effusion. Great Vessels * Normal inferior vena cava size and collapsability with sniff indicates a normal right atrial pressure of 3 mmHg Left Ventricular Diastolic Function * Grade I diastolic dysfunction, (abnormal relaxation pattern). MMode 2D Measurements and Calculations IVSd 1.2 cm IVSs 1.4 cm LVIDd 5.4 cm LVIDs 4.0 cm LVPWd 1.3 cm LVPWs 2.1 cm IVS/LVPW 0.91 FS 25.2 % EDV(Teich) 141.2 ml ESV(Teich) 71.6 ml EF(Teich) 49.3 % EDV(cubed) 157.3 ml ESV(cubed) 65.8 ml EF(cubed) 58.1 % % IVS thick 18.2 % % LVPW thick 63.0 % LV mass(C)d 269.4 grams LV mass(C)dI 147.4 grams/m\S\2 LV mass(C)s 294.6 grams LV mass(C)sI 161.2 grams/m\S\2 SV(Teich) 69.6 ml SI(Teich) 38.1 ml/m\S\2 SV(cubed) 91.4 ml SI(cubed) 50.0 ml/m\S\2 Ao root diam 3.0 cm Ao root area 7.2 cm\S\2 ACS 2.0 cm LA dimension 4.5 cm asc Aorta Diam 3.8 cm LA/Ao 1.5 LVOT diam 2.0 cm LVOT area 3.3 cm\S\2 LVAd ap4 29.6 cm\S\2 LVLd ap4 7.7 cm EDV(MOD-sp4) 101.5 ml EDV(sp4-el) 97.4 ml LVAs ap4 19.1 cm\S\2 LVLs ap4 6.8 cm ESV(MOD-sp4) 46.3 ml ESV(sp4-el) 45.5 ml EF(MOD-sp4) 54.4 % EF(sp4-el) 53.3 % LVAd ap2 27.5 cm\S\2 LVLd ap2 7.5 cm EDV(MOD-sp2) 86.3 ml EDV(sp2-el) 85.3 ml LVAs ap2 18.4 cm\S\2 LVLs ap2 6.6 cm ESV(MOD-sp2) 48.3 ml ESV(sp2-el) 43.3 ml EF(MOD-sp2) 44.0 % EF(sp2-el) 49.3 % LVLd %diff -1.61 % EDV(MOD-bp) 94.5 ml LVLs %diff -2.22 % ESV(MOD-bp) 47.0 ml EF(MOD-bp) 50.3 % SV(MOD-sp4) 55.2 ml SI(MOD-sp4) 30.2 ml/m\S\2 SV(MOD-sp2) 38.0 ml SI(MOD-sp2) 20.8 ml/m\S\2 SV(MOD-bp) 47.5 ml SI(MOD-bp) 26.0 ml/m\S\2 SV(sp4-el) 51.9 ml SI(sp4-el) 28.4 ml/m\S\2 SV(sp2-el) 42.1 ml SI(sp2-el) 23.0 ml/m\S\2 Doppler Measurements and Calculations MV E max isabel 80.7 cm/sec MV A max isabel 104.8 cm/sec MV E/A 0.77 MV dec time 0.22 sec Ao V2 max 135.9 cm/sec Ao max PG 7.4 mmHg Ao max PG (full) 3.9 mmHg ERIN(V,A) 2.2 cm\S\2 ERIN(V,D) 2.2 cm\S\2 AI max isabel 413.3 cm/sec AI max PG 69.0 mmHg AI dec slope 242.6 cm/sec\S\2 AI P1/2t 499.0 msec LV V1 max PG 3.4 mmHg LV V1 max 92.7 cm/sec MR max isabel 477.1 cm/sec MR max PG 91.1 mmHg MR mean isabel 348.8 cm/sec MR mean PG 54.3 mmHg MR VTI 189.0 cm PA V2 max 72.9 cm/sec PA max PG 2.1 mmHg PI max isabel 122.5 cm/sec PI max PG 6.0 mmHg PI dec slope 73.1 cm/sec\S\2 PI P1/2t 491.0 msec TR max isabel 267.2 cm/sec
--- NOTE | 2018-01-20 14:18 | Gastrointestinal Consultation ---
Gastrointestinal Consultation Date of Consultation: Jan 20, 2018 Attending Physician: Dr Wander Vick Consulting Physician: Dr Yuniel Moore Reason for Consultation: diverticulitis History of Present Illness cc abd pain HPI Reviewed [facility] and [facility] EMR. Pt with hx of diverticulitis in past most recently 01/2017. She had issues with Flagyl causing weakness and confusion (but completed cipro) in past and has PCN allergy. Hx of SBO from adhesions requring surgery 2002. Most recent colonoscopy 05/03/[address] Andre showing multiple sigmoid diverticuli, 3 mm rectal polyp removed path tubular adenoma, and tortuous colon. She developed recurrent LLQ pain similar to previous attacks of diverticulitis and given Avelox by PCP 10/18. She had take a course of Avelox before. After second dose on second day she developed severe muscle weakness and confusion. Weakness and confusion improved. Max abd pain at home 11/05 currently 06/07. CT scan on admit diverticulosis and wall thickening but no obviuos inflammation. WBC normal. NO black nor bloody stools. No change in bowels prior to admit going once daily. Past Medical/Surgical History Medical Problems: (1) Cyst Status: Acute (2) Diverticulitis Status: Acute (3) Hypertension Status: Acute (4) Knee pain Status: Acute (5) Medication reaction Status: Acute (6) Weakness Status: Acute Family History Cancer Diabetes mellitus Hypertension Lung disease Social History Smoking Status: Former Smoker Marital Status: single Housing Status: lives alone Occupation Status: retired Allergies Coded Allergies: Penicillins (Verified Allergy, Unknown, HIVES, 03/20/17) Ciprofloxacin (Unverified Adverse Reaction, Severe, "MADE ME DEATHLY ILL" , 03/20/17) Metronidazole (Unverified Adverse Reaction, Severe, "MADE ME DEATHLY ILL" , 03/20/17) Current Medications Home Meds and Scripts Medications Dose Route/Sig Max Daily Dose Days Date Category Tylenol (Acetaminophen) 500 Mg Tab 500 Mg PO PRN 01/19/18 Reported Moxifloxacin HCl 400 Mg Tab 400 Mg PO DAILY 01/19/18 Reported Senokot (Senna) 8.6 Mg Tab 2 Tab PO HS 03/17/17 Reported Caltrate 600+D (Calcium Carbonate-Cholecalcife) 1 Tab Tab 1 Tab PO QPM 02/06/17 Reported Vitamin D3 (Cholecalciferol) 2,000 Unit Tab 2,000 Units PO QAM 02/06/17 Reported Trazodone (Trazodone HCl) 50 Mg Tab 50 Mg PO HS 02/06/17 Reported Lopressor (Metoprolol Tartrate) 100 Mg Tab 100 Mg PO BID 02/06/17 Reported Felodipine ER (Felodipine) 10 Mg Tabcr 10 Mg PO QAM 02/06/17 Reported Irbesartan 300 Mg Tab 300 Mg PO QAM 02/06/17 Reported Lozol (Indapamide) 1.25 Mg Tab 1.25 Mg PO QAM 02/06/17 Reported Review of Systems see HPI. Otherwise 10 ROS negative. Physical Exam Date Time Temp Pulse Resp B/P (MAP) Pulse Ox O2 Delivery O2 Flow Rate FiO2 01/20/18 10:25 69 129/82 (98) 01/20/18 08:00 Room Air 01/20/18 06:49 36.8 83 16 174/93 (120) 93 Room Air 01/20/18 00:00 36.4 89 18 193/91 93 T-piece 01/19/18 23:22 36.5 84 19 188/108 95 01/19/18 22:03 188/108 01/19/18 20:49 199/137 01/19/18 19:51 84 19 186/104 95 Room Air 01/19/18 18:35 89 01/19/18 18:25 36.5 89 20 175/87 95 Room Air General Appearance: WD/WN, no apparent distress Respiratory/Chest: lungs clear, no respiratory distress Cardiovascular: regular rate, rhythm, no murmur Abdomen: normal bowel sounds, non tender, soft Extremities: normal range of motion, normal inspection Neurologic/Psych: general practitioner II-XII nml as tested, normal mood/affect, oriented x 3 Skin: normal color, no jaundice Laboratory Results Last 24 Hours Test 01/19/18 19:10 01/19/18 19:48 01/20/18 00:37 01/20/18 07:44 White Blood Count 7.22 K/uL Red Blood Count 4.41 M/uL Hemoglobin 13.3 g/dL Hematocrit 39.5 % Mean Corpuscular Volume 89.6 fL Mean Corpuscular Hemoglobin 30.2 pg Mean Corpuscular Hemoglobin Concent 33.7 g/dl Platelet Count 307 K/uL Mean Platelet Volume 9.7 fL Neutrophils (%) (Auto) 57.7 % Lymphocytes (%) (Auto) 28.1 % Monocytes (%) (Auto) 10.7 % Eosinophils (%) (Auto) 2.8 % Basophils (%) (Auto) 0.6 % Neutrophils # (Auto) 4.17 K/uL Lymphocytes # (Auto) 2.03 K/uL Monocytes # (Auto) 0.77 K/uL Eosinophils # (Auto) 0.20 K/uL Basophils # (Auto) 0.04 K/uL RDW Standard Deviation 43.5 fL RDW Coefficient of Variation 13.3 % Immature Granulocyte % (Auto) 0.1 % Immature Granulocyte # (Auto) 0.01 K/uL Sodium Level 133 mmol/L 138 mmol/L Potassium Level 3.3 mmol/L 3.7 mmol/L Chloride Level 95 mmol/L 102 mmol/L Carbon Dioxide Level 26 mmol/L 27 mmol/L Anion Gap 12.0 mmol/L 9.0 mmol/L Blood Urea Nitrogen 23 mg/dl 17 mg/dl Creatinine 0.95 mg/dl 0.86 mg/dl Est Creatinine Clear Calc Drug Dose 45.5 ml/min 48.8 ml/min Estimated GFR () 64.2 72.4 Estimated GFR (Non- 55.4 62.5 BUN/Creatinine Ratio 24.5 20.1 Random Glucose 117 mg/dl 102 mg/dl Lactic Acid Level 1.2 mmol/L Calcium Level 9.2 mg/dl 9.2 mg/dl Magnesium Level 1.8 mg/dl Total Bilirubin 0.6 mg/dl Aspartate Amino Transf (AST/SGOT) 16 U/L Alanine Aminotransferase (ALT/SGPT) 19 U/L Alkaline Phosphatase 75 U/L Troponin I < 0.015 ng/ml Total Protein 7.2 gm/dl Albumin 3.6 gm/dl Globulin 3.6 gm/dl Albumin/Globulin Ratio 1.0 Lipase 107 U/L Urine Color YELLOW Urine Appearance CLEAR Urine pH 7.0 Urine Specific [place] 1.006 Urine Protein 1+ Urine Glucose (UA) NEG Urine Ketones NEG Urine Occult Blood TRACE Urine Nitrite NEG Urine Bilirubin NEG Urine Urobilinogen NEG Urine Leukocyte Esterase NEG Urine WBC (Auto) 1-5 /hpf Urine RBC (Auto) 0-4 /hpf Urine Hyaline Casts (Auto) 0 /lpf Urine Epithelial Cells (Auto) 0-5 /lpf Urine Bacteria (Auto) NEG Prothrombin Time 11.0 SECONDS 10.5 SECONDS Prothromb Time International Ratio 1.0 1.0 Activated Partial Thromboplast Time 27.1 SECONDS Partial Thromboplastin Ratio 1.0 Thyroid Stimulating Hormone (TSH) 1.200 uIu/ml Test 01/20/18 07:45 White Blood Count 7.65 K/uL Red Blood Count 4.54 M/uL Hemoglobin 14.1 g/dL Hematocrit 40.7 % Mean Corpuscular Volume 89.6 fL Mean Corpuscular Hemoglobin 31.1 pg Mean Corpuscular Hemoglobin Concent 34.6 g/dl Platelet Count 283 K/uL Mean Platelet Volume 9.4 fL Neutrophils (%) (Auto) 57.7 % Lymphocytes (%) (Auto) 27.6 % Monocytes (%) (Auto) 11.1 % Eosinophils (%) (Auto) 3.0 % Basophils (%) (Auto) 0.5 % Neutrophils # (Auto) 4.41 K/uL Lymphocytes # (Auto) 2.11 K/uL Monocytes # (Auto) 0.85 K/uL Eosinophils # (Auto) 0.23 K/uL Basophils # (Auto) 0.04 K/uL RDW Standard Deviation 44.1 fL RDW Coefficient of Variation 13.4 % Immature Granulocyte % (Auto) 0.1 % Immature Granulocyte # (Auto) 0.01 K/uL Impression LLQ pain--could be mild diverticulitis not seen on CT. She is responding to IV abx so should continue them. Recommend low fiber diet for 2 weeks. diverticulosis as above thickening of colon on CT scan in setting of diverticulosis --colo 04/2017 showed only diverticulosis--suspect thickening from chronic diverticulosis weakness/confusion--likely Avelox side effect and is improving.
--- NOTE | 2018-01-20 16:54 | Family Medicine Progress Note ---
Progress Note Date of Service Jan 20, 2018. Subjective Pt evaluation today including: conversation w/ patient, physical exam, chart review, lab review, review of studies, review of inpatient medication list Pain: Minimal LLQ discomfort PO Intake: Tolerating well Voiding: no voiding problems Patient reports she feels much better than she did yesterday evening. States she is still a little weak. Constitutional: No fever, No chills ENT: No hearing loss Respiratory: No cough, No shortness of breath Cardiovascular: No chest pain Abdomen: + pain (minimal, LLQ), No nausea Female : No dysuria Skin: No rash All Other Systems: Reviewed and Negative Medications Current Inpatient Medications Medications (Trade) Dose Ordered Sig/Luis Route Start Time Stop Time Status Last Admin Dose Admin Ioversol (Optiray 320) 100 ml UD PRN IV 01/19/18 18:45 01/23/18 18:44 Acetaminophen (Tylenol Tab) 650 mg Q4H PRN PO 01/19/18 22:15 02/18/18 22:14 01/20/18 14:00 650 MG Al Hydrox/Mg Hydrox/Simethicone (Maalox Max Susp) 15 ml Q4H PRN PO 01/19/18 22:15 02/18/18 22:14 Magnesium Hydroxide (Milk Of Magnesia Susp) 30 ml Q6H PRN PO 01/19/18 22:15 02/18/18 22:14 Polyethylene (Miralax Powder Packet) 17 gm DAILY PRN PO 01/19/18 22:15 02/18/18 22:14 Ondansetron HCl (Zofran Inj) 4 mg Q6H PRN IV 01/19/18 22:15 02/18/18 22:14 Heparin Sodium (Porcine) (Heparin Sq 5000 Unit/0.5ml) 5,000 unit Q12 SQ 01/20/18 01:00 02/19/18 00:59 01/20/18 12:26 5,000 UNIT Indapamide (Lozol Tab) 1.25 mg QAM PO 01/20/18 09:00 02/19/18 08:59 01/20/18 08:00 1.25 MG Metoprolol Tartrate (Lopressor Tab) 100 mg BID PO 01/20/18 09:00 02/19/18 08:59 01/20/18 08:00 100 MG Felodipine (Plendil Tabcr) 10 mg QAM PO 01/20/18 09:00 02/19/18 08:59 01/20/18 08:00 10 MG Irbesartan (Avapro Tab) 300 mg QAM PO 01/20/18 09:00 02/19/18 08:59 01/20/18 08:00 300 MG Sodium Chloride 1,000 ml @ 80 mls/hr [id number] IV 01/19/18 23:15 02/18/18 23:14 01/20/18 14:02 80 MLS/HR Ertapenem 1000 mg/ Sodium Chloride 60 ml @ 100 mls/hr Q24H IV 01/20/18 02:00 01/30/18 01:59 01/20/18 01:46 100 MLS/HR Objective Vital Signs Date Time Temp Pulse Resp B/P (MAP) Pulse Ox O2 Delivery O2 Flow Rate FiO2 01/20/18 16:00 95 Room Air 01/20/18 15:13 82 165/82 (109) 78 161/88 (112) 01/20/18 14:41 36.4 80 18 164/84 (110) 95 Room Air 01/20/18 10:25 69 129/82 (98) 01/20/18 08:00 Room Air 01/20/18 06:49 36.8 83 16 174/93 (120) 93 Room Air 01/20/18 00:00 36.4 89 18 193/91 93 T-piece 01/19/18 23:22 36.5 84 19 188/108 95 01/19/18 22:03 188/108 01/19/18 20:49 199/137 01/19/18 19:51 84 19 186/104 95 Room Air 01/19/18 18:35 89 01/19/18 18:25 36.5 89 20 175/87 95 Room Air Physical Exam General Appearance: WD/WN, no apparent distress Eyes: PERRL, EOMI, sclerae normal ENT: hearing grossly normal Neck: no adenopathy, no carotid bruits, trachea midline Respiratory/Chest: lungs clear, normal breath sounds Cardiovascular: regular rate, rhythm, no edema, no murmur Abdomen: normal bowel sounds, soft, + tenderness (mild, to LLQ with DEEP palpation) Extremities: non-tender, normal inspection, no pedal edema Neurologic/Psychiatric: no motor/sensory deficits, alert, normal mood/affect, oriented x 3 Skin: normal color, warm/dry Laboratory Results Last Resulted 01/20/18 07:45 Red Blood Count 4.54, Mean Corpuscular Volume 89.6, Mean Corpuscular Hemoglobin 31.1, Mean Corpuscular Hemoglobin Concent 34.6, Mean Platelet Volume 9.4, Neutrophils (%) (Auto) 57.7, Lymphocytes (%) (Auto) 27.6, Monocytes (%) (Auto) 11.1, Eosinophils (%) (Auto) 3.0, Basophils (%) (Auto) 0.5, Neutrophils # (Auto ) 4.41, Lymphocytes # (Auto) 2.11, Monocytes # (Auto) 0.85, Eosinophils # (Auto ) 0.23, Basophils # (Auto) 0.04 Last Resulted 01/20/18 07:44 Past 24 Hours Test 01/19/18 19:10 01/20/18 00:37 01/20/18 07:44 Range/Units Troponin I < 0.015 0-0.045 ng/ml Prothromb Time International Ratio 1.0 1.0 0.9-1.1 Prothrombin Time 11.0 10.5 9.0-12.0 SECONDS Assessment and Plan 82 yo F with PMHx of HTN, Diverticulosis complicated by repeated bouts of Diverticulitis. Patient recently clinically diagnosed with Diverticulitis recurrence s/p initiation of Avelox one day prior to arrival. She presented here with progressive weakness, confusion. Acute Weakness, Confusion--RESOLVED - possibly secondary to medication reaction from Avelox given similarity to previous reaction to Cipro/Flagyl regimen - lack of focal weakness or other neurological signs makes CVA unlikely, CBC unremarkable, TSH WNL - Avelox held - symptoms improved - PT/OT LLQ pain, History of Recurrent Diverticulitis, Nausea - s/p 2 doses of Avelox ( 400 mg daily ) prior to arrival preceding acute onset weakness - Initially added Clindamycin to Ceftriaxone in ED, then switched to Ertapenem for better gram neg anaerobe coverage - GI consulted (Dr. Andre sees patient in outpatient setting)--appreciate recs - IV Zofran prn , Tylenol prn - Consider possibility of LLQ discomfort being constipation, heightening bowel regimen, alongside diverticulitis HTN - Continue Metoprolol, Irbesartan - Close outpt follow up - Echo showed global hypokinesis of LV, mod MR. - Recommend tightening BP control as outpt--have pt record BPs daily. Consider ARMANI/ARB, BB (carvedilol) - Echo did not show correlation with aneurysmal findings on CT. - Rec repeat echo in 6 months DVTP: Heparin Code: Full Resuscitation Dispo: Med/surg, home soon. Resident Physician Supervision Note: I interviewed and examined the patient. Discussed with Dr. Allen and agree with findings and plan as documented in the note. Any exceptions or clarifications are listed here: None Documented By: Wander Vick bellasha feeling better not feeling as weak no other new problems vitals noted nad breathing unlabored mild acute diverticulitis - between allergies/reactions seems invanz may be best option. continue weakness - ?temporal relationship does seem plausible to have been avelox reaction. PT/OT, hydration, time. seems improving otherwise as above Resident Tracking Resident Involvement: Resident Care Provided Care Provided: Adult Hospital Medicine
[2018-01-20] MEDS ORDERED: CEFTRIAXONE SOD INJ 1 GM in DEXTROSE 5% ADD-VANTAGE 50ML 50 ML IV SCH (18:00)
[2018-01-21] MEDS: ERTAPENEM IV 1,000 MG in SODIUM CHLOR 0.9% AD-VAN 50ML 50 ML IV SCH (01:31)
[2018-01-21] MEDS: ACETAMINOPHEN 325 MG TAB PO PRN ×3 (01:43→16:52)
[2018-01-21 07:28] VITALS: BP_SYST 184; BP_SYST 193; BP_DIAS 100; BP_DIAS 111; PULSE 86; TEMP 36.5; O2SAT 93
[2018-01-21 07:34] LABS: BASO % 0.9 %; BASO ABS # 0.06 K/uL (0-0.2); EOS % 4.5 %; EOS ABS # 0.31 K/uL (0-0.5); HEMATOCRIT 40.3 % (37-47); HEMOGLOBIN 13.5 g/dL (12.0-16.0); IG# 0.01 K/uL (0.00-0.02); LYMPH % 35.1 %; LYMPH ABS # 2.43 K/uL (1.2-3.4); MEAN CORPUSCULAR HEMOGLOBIN 30.5 pg (25-34); MEAN CORPUSCULAR HGB CONC 33.5 g/dl (32-36); MEAN PLATELET VOLUME 9.1 fL (7.4-10.4); MONO ABS # 0.83 K/uL (0.11-0.59); NEUT % 47.4 %; NEUT ABS # 3.28 K/uL (1.4-6.5); PLATELET COUNT 284 K/uL (130-400); RED CELL DISTRIBUTION WIDTH CV 13.5 % (11.5-14.5); RED CELL DISTRIBUTION WIDTH SD 44.8 fL (36.4-46.3); WHITE BLOOD COUNT 6.92 K/uL (4.8-10.8)
[2018-01-21] MEDS ORDERED: LISINOPRIL 20 MG TAB PO STA (07:37)
[2018-01-21] MEDS: INDAPAMIDE 1.25 MG TAB PO SCH (07:50)
[2018-01-21] MEDS: IRBESARTAN 150 MG TAB PO SCH (07:50)
[2018-01-21] MEDS: METOPROLOL TARTRATE 100 MG TAB PO SCH ×2 (07:50→21:22)
[2018-01-21] MEDS: FELODIPINE 5 MG TABCR PO SCH (07:50)
[2018-01-21] MEDS: HEPARIN SOD 5000 UNIT/0.5 ML CARP SQ SCH ×2 (07:51→21:51)
[2018-01-21 08:08] LABS: ALBUMIN 3.3 gm/dl (3.4-5.0); CALCIUM 8.4 mg/dl (8.5-10.1); CREATININE 0.9 mg/dl (0.60-1.20); POTASSIUM 3.3 mmol/L (3.5-5.1); TOTAL PROTEIN 6.3 gm/dl (6.4-8.2)
[2018-01-21 09:06] VITALS: BP 156/83; PULSE 81
[2018-01-21] MEDS ORDERED: NURSING VERBAL MED ORDER ONE (09:15)
[2018-01-21] MEDS ORDERED: LISINOPRIL 20 MG TAB PO ONE (11:52)
--- NOTE | 2018-01-21 13:40 | Family Medicine Progress Note ---
Progress Note Date of Service Jan 21, 2018. Subjective Pt evaluation today including: conversation w/ patient, conversation w/ family , physical exam, review of studies, review of inpatient medication list Pain: Reports no pain, only discomfort with deep LLQ palpation PO Intake: Tolerating well Voiding: no voiding problems Patient feels better, continues to get stronger daily. Concerned she has not had bowel movement today, as she has one daily. Constitutional: No fever, No chills Respiratory: No cough, No shortness of breath Abdomen: + constipation, No pain, No nausea, No vomiting Medications Current Inpatient Medications Medications (Trade) Dose Ordered Sig/Luis Route Start Time Stop Time Status Last Admin Dose Admin Ioversol (Optiray 320) 100 ml UD PRN IV 01/19/18 18:45 01/23/18 18:44 Acetaminophen (Tylenol Tab) 650 mg Q4H PRN PO 01/19/18 22:15 02/18/18 22:14 01/21/18 01:43 650 MG Al Hydrox/Mg Hydrox/Simethicone (Maalox Max Susp) 15 ml Q4H PRN PO 01/19/18 22:15 02/18/18 22:14 Magnesium Hydroxide (Milk Of Magnesia Susp) 30 ml Q6H PRN PO 01/19/18 22:15 02/18/18 22:14 Polyethylene (Miralax Powder Packet) 17 gm DAILY PRN PO 01/19/18 22:15 02/18/18 22:14 Ondansetron HCl (Zofran Inj) 4 mg Q6H PRN IV 01/19/18 22:15 02/18/18 22:14 Heparin Sodium (Porcine) (Heparin Sq 5000 Unit/0.5ml) 5,000 unit Q12 SQ 01/20/18 01:00 02/19/18 00:59 01/21/18 07:51 5,000 UNIT Indapamide (Lozol Tab) 1.25 mg QAM PO 01/20/18 09:00 02/19/18 08:59 01/21/18 07:50 1.25 MG Metoprolol Tartrate (Lopressor Tab) 100 mg BID PO 01/20/18 09:00 02/19/18 08:59 01/21/18 07:50 100 MG Felodipine (Plendil Tabcr) 10 mg QAM PO 01/20/18 09:00 02/19/18 08:59 01/21/18 07:50 10 MG Irbesartan (Avapro Tab) 300 mg QAM PO 01/20/18 09:00 02/19/18 08:59 01/21/18 07:50 300 MG Sodium Chloride 1,000 ml @ 80 mls/hr [id number] IV 01/19/18 23:15 02/18/18 23:14 Future Hold 01/20/18 14:02 80 MLS/HR Ertapenem 1000 mg/ Sodium Chloride 60 ml @ 100 mls/hr Q24H IV 01/20/18 02:00 01/30/18 01:59 01/21/18 01:31 100 MLS/HR Lisinopril (Zestril Tab) 20 mg QAM PO 01/22/18 09:00 02/21/18 08:59 Objective Vital Signs Date Time Temp Pulse Resp B/P (MAP) Pulse Ox O2 Delivery O2 Flow Rate FiO2 01/21/18 09:17 Room Air 01/21/18 09:06 81 156/83 (107) 01/21/18 07:28 36.5 86 18 193/100 (131) 93 184/111 (135) 01/21/18 00:00 Room Air 01/20/18 22:45 36.7 82 16 173/93 (119) 93 Room Air 01/20/18 19:56 167/84 (111) 01/20/18 16:00 95 Room Air 01/20/18 15:13 82 165/82 (109) 78 161/88 (112) 01/20/18 14:41 36.4 80 18 164/84 (110) 95 Room Air Physical Exam General Appearance: WD/WN, no apparent distress Eyes: PERRL, EOMI ENT: hearing grossly normal Respiratory/Chest: lungs clear, normal breath sounds, no respiratory distress, no accessory muscle use Cardiovascular: regular rate, rhythm, no edema, no murmur Abdomen: non tender, soft Extremities: no pedal edema, no calf tenderness Neurologic/Psychiatric: alert, normal mood/affect, oriented x 3 Skin: normal color, warm/dry Laboratory Results Last Resulted 01/21/18 07:23 Red Blood Count 4.43, Mean Corpuscular Volume 91.0, Mean Corpuscular Hemoglobin 30.5, Mean Corpuscular Hemoglobin Concent 33.5, Mean Platelet Volume 9.1, Neutrophils (%) (Auto) 47.4, Lymphocytes (%) (Auto) 35.1, Monocytes (%) (Auto) 12.0, Eosinophils (%) (Auto) 4.5, Basophils (%) (Auto) 0.9, Neutrophils # (Auto ) 3.28, Lymphocytes # (Auto) 2.43, Monocytes # (Auto) 0.83, Eosinophils # (Auto ) 0.31, Basophils # (Auto) 0.06 Last Resulted 01/21/18 07:23 Assessment and Plan 82 yo F with PMHx of HTN, Diverticulosis complicated by repeated bouts of Diverticulitis. Patient recently clinically diagnosed with Diverticulitis recurrence s/p initiation of Avelox one day prior to arrival. She presented here with progressive weakness, confusion. Acute Weakness, Confusion--RESOLVED - possibly secondary to medication reaction from Avelox given similarly to previous reaction to Cipro/Flagyl regimen - lack of focal weakness or other neurological signs makes CVA unlikely, CBC unremarkable, TSH WNL - Avelox held - symptoms improved - PT/OT: rec dc to home LLQ pain, History of Recurrent Diverticulitis, Nausea - s/p 2 doses of Avelox (400 mg daily ) prior to arrival preceding acute onset weakness - Initially added Clindamycin to Ceftriaxone in ED, then switched to Ertapenem for better gram neg anaerobe coverage. - last dose of ertapenam tonight to complete 5 day course of mild diverticulitis - Could consider bactrim or cefdinir as outpatient if still concerned with diverticulitis on discharge. - GI consulted (Dr. Andre sees patient in outpatient setting)--appreciate recs - IV Zofran prn , Tylenol prn - Consider possibility of LLQ discomfort being constipation, heightening bowel regimen, alongside diverticulitis - Discussed with patient who seems skeptical but agrees to try and think of other options. Discussed it is OK to take senekot/other bowel regimen with LLQ pain. HTN - Continue Metoprolol, Irbesartan, indapamide - Close outpt follow up. Pt states home BPs run 138-145/80s - Echo showed global hypokinesis of LV, mod MR. - Discussed w/ patient and family that findings c/w hypertension for long period of time. Also discussed aneurysmal findings on CT NOT confirmed by echo - Started on 20 mg lisinopril daily (today). - Recommend tightening BP control as outpt--have pt record BPs daily. - Also recommend checking BMP in 1-2 weeks - Echo did not show correlation with aneurysmal findings on CT. - Rec repeat echo in 6 months DVTP: Heparin Code: Full Resuscitation Dispo: Med/surg, home soon. Patient would prefer to be seen by Dr. Rush at [facility]. Called 01/21/[address] Rush's first appt was February 28. Resident Physician Supervision Note: I interviewed and examined the patient. Discussed with Dr. Allen and agree with findings and plan as documented in the note. Any exceptions or clarifications are listed here: None Documented By: Wander Vick continues to feel better eating better not feeling as weak but still somewhat weak worried about the future no other new problems vitals noted nad breathing unlabored mild acute diverticulitis - between allergies/reactions seems invanz may be best option. continue into tomorrow, then since so mild probably home on no further abx weakness - ?temporal relationship does seem plausible to have been avelox reaction. PT/OT, hydration, time. improving hypertensive cardiomyopathy - add lisinopril, follow BMP closely as outpt extensive ~40mins face to face discussion in light of questionable diverticulitis + questionable constipation that we need to separate the reflexive thought that every time she gets LLQ pain it's diverticulitis --> may just be constipation sometimes which would obviate the need for abx. current episode w nonspecific wall thickening and a modest fecal load places things "right on the fence" diagnostically. would rec she see doc each time she is concerned to try to rule out diverticulitis vs constipation. (after discussion w GI may be that she has some chronic scarring fromprior diverticulitis leading to functional abdominal pain as well - either way seems like benefit to her to be better with bowel regimen). also discussed addition of ACEi for hypertensive cardiomyopathy otherwise as above Resident Tracking Resident Involvement: Resident Care Provided Care Provided: Adult Hospital Medicine
[2018-01-21 15:08] VITALS: BP 169/80; PULSE 81; TEMP 36.3; O2SAT 94
--- NOTE | 2018-01-21 15:35 | Gastroenterology Progress Note ---
Progress Note Date of Service: Jan 21, 2018 Subjective Pt evaluation today including: conversation w/ patient, physical exam, chart review, lab review, review of studies, review of inpatient medication list cc f/u LLQ pain HPI Pt states LLQ pain 1/10. Not moved bowels in couple days. Review of Systems Respiratory: No shortness of breath Cardiac: No chest pain Medications Current Inpatient Medications Medications (Trade) Dose Ordered Sig/Luis Route Start Time Stop Time Status Last Admin Dose Admin Ioversol (Optiray 320) 100 ml UD PRN IV 01/19/18 18:45 01/23/18 18:44 Acetaminophen (Tylenol Tab) 650 mg Q4H PRN PO 01/19/18 22:15 02/18/18 22:14 01/21/18 01:43 650 MG Al Hydrox/Mg Hydrox/Simethicone (Maalox Max Susp) 15 ml Q4H PRN PO 01/19/18 22:15 02/18/18 22:14 Magnesium Hydroxide (Milk Of Magnesia Susp) 30 ml Q6H PRN PO 01/19/18 22:15 02/18/18 22:14 Polyethylene (Miralax Powder Packet) 17 gm DAILY PRN PO 01/19/18 22:15 02/18/18 22:14 Ondansetron HCl (Zofran Inj) 4 mg Q6H PRN IV 01/19/18 22:15 02/18/18 22:14 Heparin Sodium (Porcine) (Heparin Sq 5000 Unit/0.5ml) 5,000 unit Q12 SQ 01/20/18 01:00 02/19/18 00:59 01/21/18 07:51 5,000 UNIT Indapamide (Lozol Tab) 1.25 mg QAM PO 01/20/18 09:00 02/19/18 08:59 01/21/18 07:50 1.25 MG Metoprolol Tartrate (Lopressor Tab) 100 mg BID PO 01/20/18 09:00 02/19/18 08:59 01/21/18 07:50 100 MG Felodipine (Plendil Tabcr) 10 mg QAM PO 01/20/18 09:00 02/19/18 08:59 01/21/18 07:50 10 MG Irbesartan (Avapro Tab) 300 mg QAM PO 01/20/18 09:00 02/19/18 08:59 01/21/18 07:50 300 MG Sodium Chloride 1,000 ml @ 80 mls/hr [id number] IV 01/19/18 23:15 02/18/18 23:14 Future Hold 01/20/18 14:02 80 MLS/HR Ertapenem 1000 mg/ Sodium Chloride 60 ml @ 100 mls/hr Q24H IV 01/20/18 02:00 01/30/18 01:59 01/21/18 01:31 100 MLS/HR Lisinopril (Zestril Tab) 20 mg QAM PO 01/22/18 09:00 02/21/18 08:59 Objective Vital Signs Date Time Temp Pulse Resp B/P (MAP) Pulse Ox O2 Delivery O2 Flow Rate FiO2 01/21/18 15:08 36.3 81 16 169/80 (109) 94 01/21/18 09:17 Room Air 01/21/18 09:06 81 156/83 (107) 01/21/18 07:28 36.5 86 18 193/100 (131) 93 184/111 (135) 01/21/18 00:00 Room Air 01/20/18 22:45 36.7 82 16 173/93 (119) 93 Room Air 01/20/18 19:56 167/84 (111) 01/20/18 16:00 95 Room Air Physical Exam General Appearance: WD/WN, no apparent distress Respiratory/Chest: lungs clear, no respiratory distress Abdomen: normal bowel sounds, non tender, soft Neurologic/Psych: alert, normal mood/affect Skin: normal color, no jaundice Laboratory Results Last 24 Hours Test 01/21/18 07:23 White Blood Count 6.92 K/uL Red Blood Count 4.43 M/uL Hemoglobin 13.5 g/dL Hematocrit 40.3 % Mean Corpuscular Volume 91.0 fL Mean Corpuscular Hemoglobin 30.5 pg Mean Corpuscular Hemoglobin Concent 33.5 g/dl Platelet Count 284 K/uL Mean Platelet Volume 9.1 fL Neutrophils (%) (Auto) 47.4 % Lymphocytes (%) (Auto) 35.1 % Monocytes (%) (Auto) 12.0 % Eosinophils (%) (Auto) 4.5 % Basophils (%) (Auto) 0.9 % Neutrophils # (Auto) 3.28 K/uL Lymphocytes # (Auto) 2.43 K/uL Monocytes # (Auto) 0.83 K/uL Eosinophils # (Auto) 0.31 K/uL Basophils # (Auto) 0.06 K/uL RDW Standard Deviation 44.8 fL RDW Coefficient of Variation 13.5 % Immature Granulocyte % (Auto) 0.1 % Immature Granulocyte # (Auto) 0.01 K/uL Sodium Level 140 mmol/L Potassium Level 3.3 mmol/L Chloride Level 103 mmol/L Carbon Dioxide Level 26 mmol/L Anion Gap 11.0 mmol/L Blood Urea Nitrogen 18 mg/dl Creatinine 0.90 mg/dl Est Creatinine Clear Calc Drug Dose 46.6 ml/min Estimated GFR () 68.5 Estimated GFR (Non- 59.1 BUN/Creatinine Ratio 20.0 Random Glucose 97 mg/dl Calcium Level 8.4 mg/dl Total Bilirubin 0.5 mg/dl Aspartate Amino Transf (AST/SGOT) 15 U/L Alanine Aminotransferase (ALT/SGPT) 16 U/L Alkaline Phosphatase 67 U/L Total Protein 6.3 gm/dl Albumin 3.3 gm/dl Globulin 3.0 gm/dl Albumin/Globulin Ratio 1.1 Assessment and Plan LLQ pain--could be mild diverticulitis not seen on CT. She is responding to IV abx so should continue them. Recommend low fiber diet for 2 weeks. constipation and and chronic diverticular pain in the differential also. Discussed with DR Vick recommend Miralax daily titrated to keep bowels moving to eliminate that as one of the causes. diverticulosis as above thickening of colon on CT scan in setting of diverticulosis --colo 04/2017 showed only diverticulosis--suspect thickening from chronic diverticulosis/ past diverticulitis. weakness/confusion--likely Avelox side effect and is improving.
[2018-01-21 15:39] VITALS: O2SAT 94
[2018-01-21] MEDS ORDERED: POTASSIUM CHLORIDE PWD 20 MEQ PACK PO ONE (17:00)
[2018-01-21] MEDS ORDERED: POLYETHYLENE (MIRALAX) 17 GM PACK PO ONE (18:05)
[2018-01-21 22:48] VITALS: BP 156/84; PULSE 74; TEMP 36.8; O2SAT 96
[2018-01-22] MEDS: ERTAPENEM IV 1,000 MG in SODIUM CHLOR 0.9% AD-VAN 50ML 50 ML IV SCH (01:54)
[2018-01-22] MEDS: ACETAMINOPHEN 325 MG TAB PO PRN ×2 (03:04→13:12)
[2018-01-22 07:26] VITALS: BP 187/90; PULSE 85; TEMP 36.4; O2SAT 93
[2018-01-22] MEDS: METOPROLOL TARTRATE 100 MG TAB PO SCH (07:31)
[2018-01-22] MEDS: IRBESARTAN 150 MG TAB PO SCH (07:31)
[2018-01-22] MEDS: INDAPAMIDE 1.25 MG TAB PO SCH (07:31)
[2018-01-22] MEDS: FELODIPINE 5 MG TABCR PO SCH (07:31)
[2018-01-22] MEDS: HEPARIN SOD 5000 UNIT/0.5 ML CARP SQ SCH (07:32)
[2018-01-22 08:28] LABS: CALCIUM 8.7 mg/dl (8.5-10.1); CREATININE 0.89 mg/dl (0.60-1.20); POTASSIUM 3.7 mmol/L (3.5-5.1)
[2018-01-22 08:33] VITALS: BP 145/80
[2018-01-22] MEDS ORDERED: POLYETHYLENE (MIRALAX) 17 GM PACK PO SCH (09:00)
[2018-01-22] MEDS ORDERED: LISINOPRIL 20 MG TAB PO SCH (09:00)
--- NOTE | 2018-01-22 15:13 | Discharge Instructions ---
Discharge Instructions Date of Service Jan 22, 2018. Admission Reason for Admission: Diverticulitis, Medication Reaction, Weakness Discharge Discharge Diagnosis / Problem: Diverticulitis Discharge Goals Goal(s): Improve disease control Activity Recommendations Activity Limitations: per Instructions/Follow-up section . Instructions / Follow-Up Instructions / Follow-Up Ms. Vic garduno were admitted to [facility] to be treated for abdominal pain. The thinking was that your abdominal pain was due to your diverticulosis. Diverticulosis is an outpouching of the intestines that may become infected. While we did not discover signs of infection while in the hospital, we decided to treat you with antibiotics considering your symptoms. You have since completed the course of antibiotics. We are discharging you home with close follow up with your PCP. During your stay, you were found to have very high blood pressure despite your home regimen. We decided to start you on Lisinopril. We want you to continue to take this medication until you follow up with your primary care doctor. You were seen by a master sheet clerk (stomach doctor) while in the hospital. They also recommended that you take Miralax daily at home as to avoid constipation, which can worsen your diverticulosis. In addition, they recommended that you use a low fiber diet for the next two weeks. After two weeks you can discuss with your PCP regarding a good diet for you moving forward. Summary of recommendations 1. Continue Lisinopril--you can pick this up at the pharmacy 2. Low fiber diet--see below 3. Miralax daily--you can pick this up at the pharmacy, over the counter Foods that are generally allowed on a low-fiber diet include: White bread without nuts and seeds White rice, plain white pasta, and crackers Refined hot cereals, such as Cream of Wheat, or cold cereals with less than 1 gram of fiber per serving Pancakes or waffles made from white refined flour Most canned or well-cooked vegetables and fruits without skins or seeds Fruit and vegetable juice with little or no pulp, fruit-flavored drinks, and flavored ellis Tender meat, poultry, fish, eggs and tofu Milk and foods made from milk such as yogurt, pudding, ice cream, cheeses and sour cream if tolerated Butter, margarine, oils and salad dressings without seeds You should avoid: Whole-wheat or whole-grain breads, cereals and pasta Brown or wild rice and other whole grains, such as oats, kasha, barley and quinoa Dried fruits and prune juice Raw fruit, including those with seeds, skin or membranes, such as berries Raw or undercooked vegetables, including corn Dried beans, peas and lentils Seeds and nuts and foods containing them, including peanut butter and other nut butters Coconut Popcorn Current Hospital Diet Patient's current hospital diet: Low Fiber Diet Discharge Diet Recommended Diet: Low Fiber Diet Pending Studies Studies pending at discharge: no Medical Emergencies . Who to Call and When: Medical Emergencies: If at any time you feel your situation is an emergency, please call 911 immediately. . Non-Emergent Contact Non-Emergency issues call your: Primary Care Provider, Fancy Sewer Call Non-Emergent contact if: temperature is above 101.5 . . "Provider Documentation" section prepared by Kevin Pan. .
[2018-01-22] MEDS ORDERED: LISI-726 PO (15:17)
[2018-01-22] MEDS ORDERED: MRLP17X PO (15:17)
[2018-01-22 15:24] VITALS: BP 145/80; PULSE 85; TEMP 36.4; O2SAT 93
[2018-01-22 15:26] VITALS: BP 166/94; PULSE 77; TEMP 36.3; O2SAT 96
--- NOTE | 2018-01-22 15:48 | Discharge Summary ---
Discharge Summary Date of Service Jan 22, 2018. Discharge Summary Admission Date: Jan 19, 2018 at 22:34 Discharge Date: Jan 22, 2018 Discharge Disposition: Home Principal Diagnosis: Diverticulosis Problems/Secondary Diagnoses: HTN, Diverticulosis/diverticulitis Immunizations: Have You Had Influenza Vaccine: Unknown History of Tetanus Vaccine?: Unknown History of Pneumococcal: Unknown History of Hepatitis B Vaccine: Unknown Procedures: ABDOMEN AND PELVIS CT WITH IV CONTRAST CT DOSE: 532.36 mGy.cm HISTORY: Acute generalized abdominal pain ABD PAIN, POSS DIVERTIC, IV CONTRAST ONLY TECHNIQUE: Multiaxial CT images of the abdomen and pelvis were performed following the use of intravenous contrast. A dose lowering technique was utilized adhering to the principles of ALARA. COMPARISON STUDY: CT abdomen and pelvis 03/17/2017 FINDINGS: Mild dependent subsegmental atelectasis/scarring. No pneumatosis or pneumoperitoneum. Imaged inferior cardiac chambers are moderately enlarged. There is thinning of the lateral wall left ventricular apex with a 1.3 cm area of subtle aneurysmal dilation measuring 1.3 cm, image 24 series 3. Unchanged appearance of the liver with calcifications due to the tarik hepatis. No focal hepatic mass lesions. The gallbladder is unremarkable. Spleen, pancreas and right adrenal gland are unremarkable. Nodular thickening of the left adrenal gland. Mild cortical thinning about the left kidney. Mild nonspecific bilateral perinephric stranding. No renal calculi or obstructive uropathy. Mild lateral distention. Uterus and left adnexum are unremarkable. 1.9 cm statistically benign cystic lesion about the right adnexum appears unchanged. Moderate calcification of the aorta without aneurysm. The IVC is unremarkable. No pathologically enlarged lymph nodes identified. Small sliding-type hiatal hernia. No bowel obstruction. Extensive colonic diverticulosis with circumferential wall thickening seen throughout the sigmoid colon suggesting muscular peripherally from chronic diverticulosis. No definite acute inflammatory changes to suggest acute diverticulitis. No drainable fluid collections. Terminal ileum is unremarkable. No ascites or mesenteric inflammatory changes. Prior ventral abdominal wall herniorrhaphy. Small fat filled periumbilical, diastases 1.4 cm. Probable perineural root sleeve cysts about the sacrum measure up to 2.8 cm with benign bony remodeling changes. Demineralized appearance of the bones. Multilevel spondylitic spurring and facet arthropathy. Chondrocalcinosis of the disc spaces at L4-L5 and L5-S1. IMPRESSION: 1. Colonic diverticulosis with chronic wall thickening of the sigmoid colon. No definite evidence of acute diverticulitis. 2. No bowel obstruction or pneumoperitoneum. 3. 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 4. Additional findings as above. Interpretation Summary * Name: MANNIE CAMARENA Study Date: 01/20/2018 10:42 AM BP: 193/91 mmHg * Patient Location: [facility] HR: 89 * : 1935 (M/d/yyyy) Gender: Female Height: 62 in * Age: 82 yrs Ethnicity: CA Weight: 180 lb * Ordering Physician: Sam Lomax * Referring Physician: Self, Referred * Performed By: Dahlia Sandoval RDCS * * Reason For Study: Aneurysm, History of Valvular Insufficiency * BSA: 1.8 m2 * -- Conclusions -- * The left ventricle is normal in size. * There is mild concentric left ventricular hypertrophy. * Left ventricular systolic function is low normal. * There is borderline global hypokinesis of the left ventricle. * Aortic valve sclerosis mild, without significant aortic valvular stenosis. * Mild aortic regurgitation. * There is mild to moderate mitral regurgitation. * There is no pericardial effusion. * Normal inferior vena cava size and collapsability with sniff indicates a normal right atrial pressure of 3 mmHg * Mildly dilated ascending aorta. * Right ventricular systolic pressure is normal. * Grade I diastolic dysfunction, (abnormal relaxation pattern). * Elevated LA Pressures * The patient is markedly hypertensive during study. Procedure Details * A complete two-dimensional transthoracic echocardiogram was performed (2D, M- mode, Doppler and color flow Doppler). Left Ventricle * The left ventricle is normal in size. * There is mild concentric left ventricular hypertrophy. * Ejection Fraction = 50-55%. * Left ventricular systolic function is low normal. * There is borderline global hypokinesis of the left ventricle. Right Ventricle * The right ventricle is normal in size and function. Atria * The left atrium is moderately dilated. * The right atrium is moderately dilated. Mitral Valve * The mitral valve is grossly normal. * There is mild to moderate mitral regurgitation. Tricuspid Valve * The tricuspid valve anatomy is normal. * There is trace tricuspid regurgitation. * Right ventricular systolic pressure is normal. Aortic Valve * Aortic valve sclerosis mild, without significant aortic valvular stenosis. * Mild aortic regurgitation. Pulmonic Valve * The pulmonic valve is not well seen, but is grossly normal. * Mild pulmonic valvular regurgitation. Great Vessels * The aortic root is normal size. * Mildly dilated ascending aorta. Pericardium/Pleural * There is no pericardial effusion. Great Vessels * Normal inferior vena cava size and collapsability with sniff indicates a normal right atrial pressure of 3 mmHg Left Ventricular Diastolic Function * Grade I diastolic dysfunction, (abnormal relaxation pattern). Electronically signed by: Christ Gonsalez M.D. 01/19/2018 8:53 PM Dictated Date/Time: 01/19/2018 8:44 PM Consultations: Dr. Moore, GI Medication Reconciliation New Medications: Lisinopril (Lisinopril) 20 Mg Tab 20 MG PO QAM for 30 Days, #30 TAB 3 Refills Polyethylene (Miralax) 17 Gm Pow 17 GM PO DAILY PRN for Constipation for 30 Days, #1 CAN Continued Medications: Acetaminophen (Tylenol) 500 Mg Tab 500 MG PO PRN, TAB Calcium Carbonate-Cholecalcife (Caltrate 600+D) 1 Tab Tab 1 TAB PO QPM Cholecalciferol (Vitamin D3) 2,000 Unit Tab 2000 UNITS PO QAM, TAB Felodipine (Felodipine ER) 10 Mg Tabcr 10 MG PO QAM Indapamide (Lozol) 1.25 Mg Tab 1.25 MG PO QAM, TAB Irbesartan (Irbesartan) 300 Mg Tab 300 MG PO QAM, TAB Metoprolol Tartrate (Lopressor) 100 Mg Tab 100 MG PO BID, TAB Trazodone Hcl (Trazodone) 50 Mg Tab 50 MG PO HS, TAB Discontinued Medications: Moxifloxacin HCl (Moxifloxacin HCl) 400 Mg Tab 400 MG PO DAILY Senna (Senokot) 8.6 Mg Tab 2 TAB PO HS, TAB Discharge Exam Review of Systems: Constitutional: No fever, No chills, No sweats Respiratory: No cough, No sputum, No wheezing, No shortness of breath, No dyspnea on exertion Cardiovascular: No chest pain, No orthopnea, No edema Abdomen: No pain, No nausea, No vomiting, No diarrhea Genitourinary - Female: No dysuria, No urinary frequency, No urinary urgency , No urinary incontinence Physical Exam: General Appearance: WD/WN, no apparent distress Neck: supple, no adenopathy, thyroid normal Respiratory/Chest: chest non-tender, lungs clear, no respiratory distress, no accessory muscle use Cardiovascular: regular rate, rhythm, no edema, no murmur Abdomen / GI: normal bowel sounds, non tender, soft Extremities: normal inspection, no calf tenderness Neurologic/Psychiatric: alert, normal mood/affect, normal reflexes, oriented x 3 Skin: normal color, warm/dry, no rash Hospital Course 82 yo F with PMHx of HTN, Diverticulosis complicated by repeated bouts of Diverticulitis. Patient recently clinically diagnosed with Diverticulitis recurrence s/p initiation of Avelox one day prior to arrival. She presented here with progressive weakness, confusion. LLQ pain, History of Recurrent Diverticulitis, Nausea - Patient CT was negative for signs of diverticulitis, nonetheless, clinical presentation was concerning for diverticulitis and treatment was continued - Patient received 2 doses of Avelox (400 mg daily ) prior to arrival preceding acute onset weakness and confusion - Finished course of ertapenem for better gram neg anaerobe coverage. - GI consulted (Dr. Andre sees patient in outpatient setting)-- pain ? sec to constipation/chronic diverticular pain. HTN, - Patient had elevated BP throughout hospitalization. Lisinopril 20 mg was added to her regimen, better controlled. Continue Metoprolol, Irbesartan, indapamide. - Close outpt follow up. Pt states home BPs run 138-145/80s. Recommend tightening BP control as outpt--have pt record BPs daily. - ECHO was order after CT showed apical aneurysm. Echo showed global hypokinesis of LV, mod MR, but did not show signs of aneurysm - Rec repeat echo in 6 months - Discussed w/ patient and family that findings c/w hypertension for long period of time. Also discussed aneurysmal findings on CT NOT confirmed by echo - Also recommend checking BMP in 1-2 weeks. Acute Weakness, Confusion--RESOLVED - possibly secondary to medication reaction from Avelox given similarly to previous reaction to Cipro/Flagyl regimen - lack of focal weakness or other neurological signs makes CVA unlikely, CBC unremarkable, TSH WNL - Avelox held - symptoms improved - PT/OT: rec dc to home Total Time Spent: Greater than 30 minutes This includes examination of the patient, discharge planning, medication reconciliation, and communication with other providers. Discharge Instructions Please refer to the electronic Patient Visit Report (Discharge Instructions) for additional information. Additional Copies To Tracie Rush D.O. Reviewed: Pt Seen/Exam by Me History abdominal pain improved Constitutional: denies: fever Respiratory: negative: short of breath Cardiovascular: denies chest pain Gastrointestinal/Abdominal: negative: abdominal pain General Appearance: no apparent distress Respiratory: lungs clear, no respiratory distress Cardiovascular: regular rate, rhythm Gastrointestinal: soft Neurologic/Psychiatric: alert, oriented x 3 Skin Characteristics: warm/dry Assessment/Plan Resident Physician Supervision Note: I independently interviewed and examined the patient and verified the bravo history and physical, reviewed labs and image studies, discussed the case with the resident Dr. Pan and agree with the findings and care plan. Time spent in discharge 35 min
== END 2018-01-22 16:15 | disposition home health service (06) | DRG 392 ==
LOC: EDBD 18:16 → C.EDC 18:17 → C.MS2W 22:34 → ENRESERV 23:02
PROVIDERS: ADMIT Hospitalist; ATTEND Family Medicine
DX: K57.32 Diverticulitis of large intestine without perforation or abscess without bleeding (principal); I25.3 Aneurysm of heart; I43 Cardiomyopathy in diseases classified elsewhere; I11.9 Hypertensive heart disease without heart failure; K59.00 Constipation, unspecified; R11.0 Nausea; E87.6 Hypokalemia; R53.1 Weakness; R41.0 Disorientation, unspecified; T37.8X5A Adverse effect of other specified systemic anti-infectives and antiparasitics, initial encounter; Z87.891 Personal history of nicotine dependence; Z79.2 Long term (current) use of antibiotics; Z79.899 Other long term (current) drug therapy; Z88.0 Allergy status to penicillin; Z88.1 Allergy status to other antibiotic agents

== ENCOUNTER 2018-08-04 10:19 | Inpatient (IN) ==
[2018-08-04] MEDS ORDERED: ONDANSETRON INJ 2 MG/ML 2 ML VIAL IV STA (10:40)
[2018-08-04] MEDS ORDERED: MoRPHine SULFATE 4 MG/ML 1 ML CARP\\VIAL IV STA (10:40)
[2018-08-04] MEDS ORDERED: SODIUM CHLORIDE 0.9% 500 ML IV SCH (10:45)
[2018-08-04 10:58] LABS: Basophils # (auto) 0.06 K/uL (0-0.2); Basophils % (auto) 0.7 %; Eosinophils # (auto) 0.17 K/uL (0-0.5); Eosinophils % (auto) 1.9 %; Hematocrit (blood only) 45.7 % (37-47); Hemoglobin 15.3 g/dL (12.0-16.0); Immature Granulocytes # (auto) 0.03 K/uL (0.00-0.02); Immature Granulocytes % (auto) 0.3 %; Lymphocytes # (auto) 1.86 K/uL (1.2-3.4); Lymphocytes % (auto) 20.7 %; Mean Corpuscular Hgb Conc 33.5 g/dL (32-36); Mean Corpuscular Volume 92.7 fL (80-100); Mean Platelet Volume 9.3 fL (7.4-10.4); Monocytes # (auto) 0.68 K/uL (0.11-0.59); Monocytes % (auto) 7.6 %; Neutrophils % (auto) 68.8 %; Platelet Count 319 K/uL (130-400); RDW Coefficient of Variation 13.8 % (11.5-14.5); RDW Standard Deviation 46.7 fL (36.4-46.3); Red Blood Count 4.93 M/uL (4.2-5.4)
[2018-08-04 11:21] LABS: Alanine Aminotransferase 20 U/L (12-78); Albumin Level 4.1 gm/dl (3.4-5.0); Aspartate Aminotransferase 16 U/L (15-37); BUN Creatinine Ratio 22.9 (10-20); Blood Urea Nitrogen 18 mg/dl (7-18); Calcium 10.3 mg/dl (8.5-10.1); Carbon Dioxide 29 mmol/L (21-32); Chloride 95 mmol/L (98-107); Creatinine Clr Calc Pharmacy 53.6 ml/min; Est GFR (African American) 80.2; Est GFR (Non-African American) 69.2; Glucose 119 mg/dl (70-99); Potassium 3.8 mmol/L (3.5-5.1); Sodium 133 mmol/L (136-145)
[2018-08-04 11:24] LABS: Appearance Urine Clear (Clear); Bacteria Urine Automated Negative (Negative); Bilirubin Urine Negative (Negative); Blood Urine 1+ (Negative); Cast Urine Automated 0 /lpf (0-5); Color Urine Yellow; Epithelial Cell Urine Auto 0-5 /lpf (0-5); Glucose Urine UA Negative (Negative); Ketones Urine Negative (Negative); Leukocyte Esterase Urine Negative (Negative); Nitrite Urine Negative (Negative); Urobilinogen Urine Negative (Negative); WBC Urine Automated 0 /hpf (0-5)
[2018-08-04 11:26] LABS: Protein Urine 2+ (Negative)
[2018-08-04 11:26] LABS: Albumin Globulin Ratio 1.1 (0.9-2); Alkaline Phosphatase 85 U/L (45-117); Bilirubin,Total 0.6 mg/dl (0.2-1); Globulin 3.7 gm/dl (2.5-4.0); Total Protein 7.8 gm/dl (6.4-8.2); Troponin I < 0.015 ng/ml (0-0.045)
[2018-08-04] MEDS ORDERED: IOVERSOL 100ml IV PRN (11:58)
--- NOTE | 2018-08-04 12:24 | CT Scan Report ---
ABDOMEN AND PELVIS CT WITH IV CONTRAST CT DOSE: 655.29 mGy.cm HISTORY: Generalized abdominal pain. TECHNIQUE: Multiaxial CT images of the abdomen and pelvis were performed following the use of intrave nous contrast. A dose lowering technique was utilized adhering to the principles of ALARA. COMPARISON STUDY: Abdomen and pelvis CT 01/19/2018. FINDINGS: The heart remains enlarged. Bibasilar linear densities favor subsegmental atelectasis. No p neumoperitoneum. No pneumatosis. No suspicious lytic or blastic osseous lesions. Tiny fat-containing umbilical hernia. Small fat-containing right inguinal hernia. No hepatic or splenic masses. The adren al glands, pancreas, gallbladder are unremarkable. No retroperitoneal lymphadenopathy. No hydronephro sis. A few subcentimeter bilateral renal hypodense lesions. These are technically too small to charac terize but favor cysts. The bladder, uterus, left ovary are unremarkable. There is a 2 cm cyst within the right ovary, unchanged. Moderate thickening of the mid sigmoid colon with multiple colonic diver ticula. There are few subcentimeter pericolonic lymph nodes, unchanged. No pericolonic fat stranding to suggest acute diverticulitis at this time. The bowel wall thickening favors muscular hypertrophy g iven the long-term stability. Questionable thickening of the distal transverse colon and descending c olon is likely due to underdistention. Multiple mildly dilated gas and fluid-filled loops of bowel to mid small bowel. There appears to be a transition point within the distal jejunum best seen on image 286. Therefore, these findings favor a small bowel obstruction. IMPRESSION: 1. Multiple mildly dilated gas and fluid-filled loops of proximal to mid small bowel with an apparent transition point within the distal jejunum within the left midabdomen. Therefore, these findings lik ablaro represent a small bowel obstruction. 2. No change in the thickening of the sigmoid colon with multiple colonic diverticula. No pericolonic inflammatory change at this time to suggest acute diverticulitis. Therefore, the colonic wall thicke jeanette is likely due to muscular hypertrophy. Follow-up scan can be performed if the patient symptoms c ontinue to progress. 3. There are few subcentimeter pericolonic lymph nodes at the sigmoid colon which remain unchanged. 4. Additional findings as described above. Electronically signed by: Jesse Elliott M.D. 08/04/2018 12:22 PM
[2018-08-04] MEDS ORDERED: SODIUM CHLORIDE 0.9% 1000ML 1,000 ML IV SCH (13:00)
--- NOTE | 2018-08-04 14:06 | History & Physical Report ---
Date of Service August 04, 2018 Assessment & Plan (1) Small bowel obstruction: As noted on CTAP Hx of same in 2003 related to adhesions NPO with sips to take meds given no n/v and hx of issues without her usual BP regimen IVF PRP WNL, monitor Lipase and UA WNL Hold on NGT for now given sx controlled and no n/v. Pt aware that if she develops vomiting or severe nausea that an NGT will need placed Will hold on surgery c/s given mild sx (2) HTN (hypertension): Labile in the ED Pt did take AM meds She and daughter state that her BP is always elevated in the hospital Continue home regimen for now given mild sx and tolerated this AM given h/o issues with medication changes (3) Fibromyalgia: Continue HS trazodone (4) DVT prophylaxis: SCDs for now to avoid GIB History of Present Illness Primary Care Provider: Tracie Rush, DO 82 y/o F c/o abd pain. Pt states this started around 830a today. She states that she was fine yesterday. 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 She ate her usual diet yesterday, 3 meals. She had no issues with n/v, abd pain, or early satiety. No bloating. She woke up this AM around her usual time and had a bowel movement that was not difficult and was regular, formed stool. She had prunes and coffee and her morning meds and then had sudden onset of sharp abd pain in the upper abd. She felt like she had to pass gas, but could not. She started to feel bloated. When this did not pass she called her daughter to bring her to the ED. Pt denies fever, SOB, chest pain, LE pain or swelling. 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 Stil l without n/v. Pt does not like taking morphine and is requesting something more mild for her pain if she needs it. Pt also states that she has great difficulty with her BP and side effects with other BP medications. She would prefer to stay on her home regimen if she is able. Allergies Allergy/AdvReac Type Severity Reaction Status Date / Time Penicillins Allergy Unknown HIVES Verified 08/04/18 11:33 Cipro AdvReac Severe "MADE ME Unverified 03/20/17 02:09 DEATHLY ILL" ciprofloxacin AdvReac Severe "MADE ME Unverified 08/04/18 11:33 DEATHLY ILL" metronidazole AdvReac Severe "MADE ME Unverified 08/04/18 11:33 DEATHLY ILL" Home Medications Home Medications Medication Instructions Recorded Confirmed Type acetaminophen [Tylenol Extra 500 mg PO Q6H PRN 08/04/18 08/04/18 History Strength] calcium carbonate-vitamin D3 1 tab PO PM 08/04/18 08/04/18 History [Caltrate 600 + D] cholecalciferol (vitamin D3) 2,000 unit PO QAM 08/04/18 08/04/18 History [Vitamin D3] felodipine 10 mg PO QAM 08/04/18 08/04/18 History indapamide 1.25 mg PO QAM 08/04/18 08/04/18 History irbesartan 300 mg PO QAM 08/04/18 08/04/18 History metoprolol tartrate 100 mg PO BID 08/04/18 08/04/18 History trazodone 50 mg PO HS 08/04/18 08/04/18 History Past Med/Surg History Medical History HTN (hypertension) (Chronic) Diverticulitis (Acute) Surgical History History of appendectomy (Resolved) Family History Other No pertinent family history Social History Preferred Language: Greek Feels Safe at Home: Yes Smoking Status: Former smoker Hx Alcohol Use: No Hx Substance Use: No Review of Systems Pertinent positives and negatives reviewed in HPI--all others negative Physical Exam Vital Signs (Past 24 Hours): Last Vital Signs Temp 36.4 C L 08/04/18 10:30 Pulse 89 08/04/18 12:20 Resp 20 08/04/18 12:20 BP 187/98 H 08/04/18 12:20 Pulse Ox 92 08/04/18 12:20 Constitutional: WD/WN, vitals as above Eyes: normal visual melvin by confrontation and + anicteric sclerae Neck: normal visual inspection and trachea midline Respiratory: normal respiratory effort, lungs clear to auscultation Cardiovascular: Rate/Rhythm: regular rate and regular rhythm Gastrointestinal (Abdomen): Inspection/Auscultation: + abdomen distended and + hypoactive bowel sounds; no high-pitched sounds Percussion/Palpation: + abdomen tender (TTP along epigastric, LUQ, LLQ--worst is epigastric/LUQ) Musculoskeletal: Head/Neck/Chest: normocephalic and head atraumatic negative for edema, peripheral pulses intact Skin: no rashes, warm and dry Neurologic: awake; not confused Speech / Cognition: normal speech Psychiatric: A+Ox3, euthymic affect Results & Data Diagnostic Findings CT AP: 1. Multiple mildly dilated gas and fluid-filled loops of proximal to mid small bowel with an apparent transition point within the distal jejunum within the left midabdomen. Therefore, these findings likely represent a small bowel obstruction. 2. No change in the thickening of the sigmoid colon with multiple colonic diverticula. No pericolonic inflammatory change at this time to suggest acute diverticulitis. Therefore, the colonic wall thickening is likely due to muscular hypertrophy. Follow-up scan can be performed if the patient symptoms continue to progress. 3. There are few subcentimeter pericolonic lymph nodes at the sigmoid colon which remain unchanged. 4. Additional findings as described above. Code Status & VTE Plan Code Status DNR/DNI-"I am ready when the Lord wants me." Daughter is present and is POA and agrees. VTE Prophylaxis Plan VTE Prophylaxis will be ordered: Yes
[2018-08-04] MEDS ORDERED: MAGNESIUM HYDROXIDE SUSP 30 ML UDC PO PRN (15:14)
--- NOTE | 2018-08-04 15:27 | Emergency Department Note ---
Entered by Beryl Goins acting as a scribe for Lobo Hall MD History of Present Illness General Chief complaint: Abdominal Pain Stated complaint: STOMACH PAIN Time Seen by Provider: 08/04/18 10:36 Source: patient History of Present Illness Onset (ago): hour(s) (0830 this morning) Location: abdomen (upper) Severity: similar to prior episodes (when she had a bowel obstruction) Pain Consistency: + other (sudden) Maximum Pain Intensity: 10 Quality: + other (upper abdominal pain) Associated symptoms: + other (Negative any blood in her urine, blood in her stool, recent trauma, twisting, turning , recent antibiotic use); no chest pain and no shortness of breath The patient is a 82 year old white female w/ PMHx of HTN, diverticulitis, appendectomy who presents to the ED w/ CC of severe upper abdominal pain beginning around 0830 this morning. She reports she had a normal morning when her abdominal pain began suddenly. She states she had a bowel obstruction years ago and this feels similar. Her last BM was this morning. Pt denies any blood in her urine, blood in her stool, recent trauma, twisting, turning , recent antibiotic use, chest pain, SOB. Home Medications Home Medications Medication Instructions Recorded Confirmed Type acetaminophen [Tylenol Extra 500 mg PO Q6H PRN 08/04/18 08/04/18 History Strength] calcium carbonate-vitamin D3 1 tab PO PM 08/04/18 08/04/18 History [Caltrate 600 + D] cholecalciferol (vitamin D3) 2,000 unit PO QAM 08/04/18 08/04/18 History [Vitamin D3] felodipine 10 mg PO QAM 08/04/18 08/04/18 History indapamide 1.25 mg PO QAM 08/04/18 08/04/18 History irbesartan 300 mg PO QAM 08/04/18 08/04/18 History metoprolol tartrate 100 mg PO BID 08/04/18 08/04/18 History trazodone 50 mg PO HS 08/04/18 08/04/18 History Allergies Allergy/AdvReac Type Severity Reaction Status Date / Time Penicillins Allergy Unknown HIVES Verified 08/04/18 11:33 Cipro AdvReac Severe "MADE ME Unverified 03/20/17 02:09 DEATHLY ILL" ciprofloxacin AdvReac Severe "MADE ME Unverified 08/04/18 11:33 DEATHLY ILL" metronidazole AdvReac Severe "MADE ME Unverified 08/04/18 11:33 DEATHLY ILL" Past Med/Surg History Medical History HTN (hypertension) (Chronic) Diverticulitis (Acute) Surgical History History of appendectomy (Resolved) Social History Preferred Language: Portuguese Feels Safe at Home: Yes Smoking Status: Former smoker Hx Alcohol Use: No Hx Substance Use: No Review of Systems See HPI for pertinent positives & negatives. and A total of 10 systems reviewed and were otherwise negative Physical Exam Vital Signs Vital Signs - 24 hr 08/04/18 10:30 08/04/18 11:00 08/04/18 12:20 Temperature 36.4 C L Temperature Source Oral Sepsis Recent Fever Within 48 Hours No Sepsis New/Unexplained Change in Mental Status No Sepsis Action Taken by Nursing No Action Required Pulse Rate 94 H Pulse Rate [Apical] 89 Pulse Rhythm [Apical] Regular Pulse Strength [Apical] Normal Respiratory Rate 18 20 Respiratory Effort / Characteristics Non-Labored Non-Labored Spontaneous Respiratory Depth Normal Normal Respiratory Pattern Regular Regular Blood Pressure 212/125 H Blood Pressure [Left Arm] Blood Pressure [Right Arm] 187/98 H Blood Pressure Mean 154 Blood Pressure Mean [Left Arm] Blood Pressure Mean [Right Arm] 127 Blood Pressure Position Sitting Blood Pressure Position [Left Arm] Pulse Oximetry 97 97 92 Oxygen Delivery Method Room Air Room Air Room Air 08/04/18 14:00 08/04/18 14:53 Temperature 36.4 C L Temperature Source Oral Sepsis Recent Fever Within 48 Hours Sepsis New/Unexplained Change in Mental Status Sepsis Action Taken by Nursing Pulse Rate Pulse Rate [Apical] 76 96 H Pulse Rhythm [Apical] Regular Pulse Strength [Apical] Normal Respiratory Rate 18 15 Respiratory Effort / Characteristics Respiratory Depth Normal Respiratory Pattern Blood Pressure Blood Pressure [Left Arm] 159/98 H Blood Pressure [Right Arm] 152/94 H Blood Pressure Mean Blood Pressure Mean [Left Arm] 118 Blood Pressure Mean [Right Arm] 113 Blood Pressure Position Blood Pressure Position [Left Arm] Lying Pulse Oximetry 98 94 Oxygen Delivery Method Room Air GENERAL: Well appearing, well nourished, NAD, non-toxic. Wearing glasses. EYE EXAM: Normal conjunctiva. PERRL, no anisocoria and EOM's grossly intact w/o pain OROPHARYNX: Moist MM. NECK: Supple, no nuchal rigidity, no adenopathy, non-tender. No signs of meningismus LUNGS: Clear to auscultation. Normal chest wall mechanics. HEART: NSR, no MRG ABDOMEN: Abdomen soft, epigastric LUQ pain, normo-active bowel sounds, no masses, no rebound or guarding. BACK: No CVA TTP SKIN: No rashes and no bruising. UPPER EXTREMITIES: Upper extremities are grossly normal. LOWER EXTREMITIES: No pitting edema. No calf pain. Negative Homans sign NEURO EXAM: A and O x3. GCS 15. Moves all 4 extremities. Course 1045: Past medical records reviewed. The patient was evaluated in room A2, and a complete history and physical examination were performed. 1145: I checked on the patient at this time and discussed their findings. 1254: I reviewed the patient's case with Dr. Criss Hooks, [facility] Hospitalist. She will evaluate the patient for further management. Consultations Consultation #1: I reviewed the patient's case with Dr. Criss Hooks, [facility] Hospitalist. She will evaluate the patient for further management. Time: 12:54 Administered Medications Ioversol (Optiray 320 100ml) 94 ml IV ONCE PRN PRN Reason: Interaction Checking Stop: 08/08/18 11:57 Last Admin: 08/04/18 11:58 Dose: 94 ml Documented by: [id number] Discontinued Medications Sodium Chloride (Nss) 500 mls @ 999 mls/hr IV .Q31M JJ Stop: 08/04/18 11:15 Last Infusion: 08/04/18 11:42 Dose: 0 mls/hr Documented by: [id number] Admin: 08/04/18 11:02 Dose: 999 mls/hr Documented by: [id number] Morphine Sulfate (Morphine Sulfate) 4 mg IV NOW STA Stop: 08/04/18 10:41 Last Admin: 08/04/18 11:02 Dose: 4 mg Documented by: [id number] Ondansetron HCl (Zofran) 4 mg IV NOW STA Stop: 08/04/18 10:41 Last Admin: 08/04/18 11:02 Dose: 4 mg Documented by: [id number] Medical Decision Making Medical Records Attestation: I reviewed the patient's medical records. Home Medications Current Medication List: was personally reviewed by me Laboratory Data Attestation: I reviewed the patient's lab results. Result diagrams: 08/04/18 10:45 08/04/18 10:45 Lab Results 08/04/18 08/04/18 08/04/18 Range/Units 10:40 10:45 10:45 WBC 9.00 (4.8-10.8) K/uL RBC 4.93 (4.2-5.4) M/uL Hgb 15.3 (12.0-16.0) g/dL Hct 45.7 (37-47) % MCV 92.7 (80-100) fL MCH 31.0 (25-34) pg MCHC 33.5 (32-36) g/dL RDW Std Deviation 46.7 H (36.4-46.3) fL RDW Coeff of Mari 13.8 (11.5-14.5) % Plt Count 319 (130-400) K/uL MPV 9.3 (7.4-10.4) fL Immature Gran % (Auto) 0.3 % Neut % (Auto) 68.8 % Lymph % (Auto) 20.7 % [facility] % (Auto) 7.6 % Eos % (Auto) 1.9 % Baso % (Auto) 0.7 % Immature Gran # (Auto) 0.03 H (0.00-0.02) K/uL Neut # (Auto) 6.20 (1.4-6.5) K/uL Lymph # (Auto) 1.86 (1.2-3.4) K/uL [facility] # (Auto) 0.68 H (0.11-0.59) K/uL Eos # (Auto) 0.17 (0-0.5) K/uL Baso # (Auto) 0.06 (0-0.2) K/uL PT 10.0 (9.0-12.0) Seconds INR 1.0 (0.9-1.1) Sodium (136-145) mmol/L Potassium (3.5-5.1) mmol/L Chloride (98-107) mmol/L Carbon Dioxide (21-32) mmol/L Anion Gap (3-11) BUN (7-18) mg/dl Creatinine (0.6-1.2) mg/dl Est Cr Clr Drug Dosing ml/min Est GFR ( Amer) Est GFR (Non-Af Amer) BUN/Creatinine Ratio (10-20) Glucose (70-99) mg/dl Calcium (8.5-10.1) mg/dl Total Bilirubin (0.2-1) mg/dl AST (15-37) U/L ALT (12-78) U/L Alkaline Phosphatase (45-117) U/L Troponin I (0-0.045) ng/ml Total Protein (6.4-8.2) gm/dl Albumin (3.4-5.0) gm/dl Globulin (2.5-4.0) gm/dl Albumin/Globulin Ratio (0.9-2) Lipase (73-393) U/L Urine Color Yellow Urine Appearance Clear (Clear) Urine pH 8.0 H (4.5-7.5) Ur Specific [place] 1.010 (1.000-1.030) Urine Protein 2+ H (Negative) Urine Glucose (UA) Negative (Negative) Urine Ketones Negative (Negative) Urine Blood 1+ H (Negative) Urine Nitrite Negative (Negative) Urine Bilirubin Negative (Negative) Urine Urobilinogen Negative (Negative) Ur Leukocyte Esterase Negative (Negative) Urine WBC (Auto) 0 (0-5) /hpf Urine RBC (Auto) 5-10 H (0-4) /hpf U Hyaline Cast (Auto) 0 (0-5) /lpf U Epithel Cells (Auto) 0-5 (0-5) /lpf Urine Bacteria (Auto) Negative (Negative) 08/04/18 Range/Units 10:45 WBC (4.8-10.8) K/uL RBC (4.2-5.4) M/uL Hgb (12.0-16.0) g/dL Hct (37-47) % MCV (80-100) fL MCH (25-34) pg MCHC (32-36) g/dL RDW Std Deviation (36.4-46.3) fL RDW Coeff of Mari (11.5-14.5) % Plt Count (130-400) K/uL MPV (7.4-10.4) fL Immature Gran % (Auto) % Neut % (Auto) % Lymph % (Auto) % [facility] % (Auto) % Eos % (Auto) % Baso % (Auto) % Immature Gran # (Auto) (0.00-0.02) K/uL Neut # (Auto) (1.4-6.5) K/uL Lymph # (Auto) (1.2-3.4) K/uL [facility] # (Auto) (0.11-0.59) K/uL Eos # (Auto) (0-0.5) K/uL Baso # (Auto) (0-0.2) K/uL PT (9.0-12.0) Seconds INR (0.9-1.1) Sodium 133 L (136-145) mmol/L Potassium 3.8 (3.5-5.1) mmol/L Chloride 95 L (98-107) mmol/L Carbon Dioxide 29 (21-32) mmol/L Anion Gap 9.0 (3-11) BUN 18 (7-18) mg/dl Creatinine 0.79 (0.6-1.2) mg/dl Est Cr Clr Drug Dosing 53.6 ml/min Est GFR ( Amer) 80.2 Est GFR (Non-Af Amer) 69.2 BUN/Creatinine Ratio 22.9 H (10-20) Glucose 119 H (70-99) mg/dl Calcium 10.3 H (8.5-10.1) mg/dl Total Bilirubin 0.6 (0.2-1) mg/dl AST 16 (15-37) U/L ALT 20 (12-78) U/L Alkaline Phosphatase 85 (45-117) U/L Troponin I < 0.015 (0-0.045) ng/ml Total Protein 7.8 (6.4-8.2) gm/dl Albumin 4.1 (3.4-5.0) gm/dl Globulin 3.7 (2.5-4.0) gm/dl Albumin/Globulin Ratio 1.1 (0.9-2) Lipase 97 (73-393) U/L Urine Color Urine Appearance (Clear) Urine pH (4.5-7.5) Ur Specific [place] (1.000-1.030) Urine Protein (Negative) Urine Glucose (UA) (Negative) Urine Ketones (Negative) Urine Blood (Negative) Urine Nitrite (Negative) Urine Bilirubin (Negative) Urine Urobilinogen (Negative) Ur Leukocyte Esterase (Negative) Urine WBC (Auto) (0-5) /hpf Urine RBC (Auto) (0-4) /hpf U Hyaline Cast (Auto) (0-5) /lpf U Epithel Cells (Auto) (0-5) /lpf Urine Bacteria (Auto) (Negative) Imaging Data Radiologist's Impression: Radiology results as stated below per my review and the radiologist's interpretation: ABDOMEN AND PELVIS CT WITH IV CONTRAST CT DOSE: 655.29 mGy.cm HISTORY: Generalized abdominal pain. TECHNIQUE: Multiaxial CT images of the abdomen and pelvis were performed following the use of intravenous contrast. A dose lowering technique was utilized adhering to the principles of ALARA. COMPARISON STUDY: Abdomen and pelvis CT 01/19/2018. FINDINGS: The heart remains enlarged. Bibasilar linear densities favor subsegmental atelectasis. No pneumoperitoneum. No pneumatosis. No suspicious lytic or blastic osseous lesions. Tiny fat-containing umbilical hernia. Small fat-containing right inguinal hernia. No hepatic or splenic masses. The adrenal glands, pancreas, gallbladder are unremarkable. No retroperitoneal lymphadenopathy. No hydronephrosis. A few subcentimeter bilateral renal hypodense lesions. These are technically too small to characterize but favor cysts. The bladder, uterus, left ovary are unremarkable. There is a 2 cm cyst within the right ovary, unchanged. Moderate thickening of the mid sigmoid colon with multiple colonic diverticula. There are few subcentimeter pericolonic lymph nodes, unchanged. No pericolonic fat stranding to suggest acute diverticulitis at this time. The bowel wall thickening favors muscular hypertrophy given the long-term stability. Questionable thickening of the distal transverse colon and descending colon is likely due to underdistention. Multiple mildly dilated gas and fluid-filled loops of bowel to mid small bowel. There appears to be a transition point within the distal jejunum best seen on image 286. Therefore, these findings favor a small bowel obstruction. IMPRESSION: 1. Multiple mildly dilated gas and fluid-filled loops of proximal to mid small bowel with an apparent transition point within the distal jejunum within the left midabdomen. Therefore, these findings likely represent a small bowel obstruction. 2. No change in the thickening of the sigmoid colon with multiple colonic d iverticula. No pericolonic inflammatory change at this time to suggest acute diverticulitis. Therefore, the colonic wall thickening is likely due to muscular hypertrophy. Follow-up scan can be performed if the patient symptoms continue to progress. 3. There are few subcentimeter pericolonic lymph nodes at the sigmoid colon which remain unchanged. 4. Additional findings as described above. Electronically signed by: Jesse Elliott M.D. 08/04/2018 12:22 PM ECG Data Attestation: I personally reviewed and interpreted this ECG as follows: Indication: abdominal pain Rate (beats per minute): 87 Rhythm: normal sinus Findings: + other (normal intervals) and + left axis deviation Comparison ECG Date: from (01/18/18) Change: no significant change Blood Pressure Blood Pressure Findings: Elevated blood pressure Blood Pressure Disposition: further management by hospitalist BEATRICE Narrative Prior records/ancillary studies reviewed. Triage nursing notes reviewed. The patient is a 82 year old white female w/ PMHx of HTN, diverticulitis, appendectomy who presents to the ED w/ CC of severe upper abdominal pain beginning around 0830 this morning. Differential diagnosis: Etiologies such as appendicitis, diverticulitis, PUD, biliary pathology, UTI, pancreatitis, obstruction, mesenteric ischemia, aortic pathology, infections, inflammatory bowel disease, renal colic, as well as others were entertained. Patient was seen and evaluated the bedside. The patient did present with acute onset of epigastric and abdominal pain. The patient states that she has had a prior bowel obstruction and it does feel similar. The patient does have pain on exam. Patient denies chest pains or shortness of breath. Patient did a blood work completed along with EKG troponin and CT of the abdomen pelvis. EKG is unremarkable. Troponin is not elevated. Atypical chest pain is less likely. Patient's blood work shows normal white count. Patient has slightly low sodium at 133. Patient's kidney function is unremarkable. LFTs and lipase within normal limits. Urinalysis shows may be some scant blood but no evidence of obvious infection. CT abdomen pelvis that shows small bowel obstruction. The patient is not actively vomiting. Patient was made n.p.o. and started on IV fluids. I did speak the on-call hospitalist who agreed to further evaluate and admit the patient. I did state with the patient that general surgery may be consulted and that if the patient does not improve with regards to her pain she may benefit from an NG. She has had no vomiting upon presentation here. Impression & Plan Small bowel obstruction, Abdominal pain Discharge Plan Visit Data Chief Complaint: Abdominal Pain Stated Complaint: STOMACH PAIN ED Provider: Lobo Hall Discharge Problem: Small bowel obstruction, Abdominal pain Patient Disposition: Being Evaluated by Hospitalist Discharge Instructions Interventions: ED Discharge Assessment Last Done: 08/04/18 14:25 Discharge Problem: Abdominal pain Qualifiers: Abdominal location: epigastric Qualified Code(s): R10.13 - Epigastric pain The scribe's documentation has been prepared under my direction and personally reviewed by me in its entirety. I confirm that the note above accurately r eflects all work, treatment, procedures, and medical decision making performed by me.
[2018-08-04] MEDS: MoRPHine SULFATE 2 MG/ML CARP IV PRN ×2 (15:28→21:34)
[2018-08-04] MEDS: POTASSIUM CHLORIDE 10 MEQ in D5W AND NSS 1,000 ML IV SCH (16:10)
[2018-08-04] MEDS: ACETAMINOPHEN 1,000 MG/100 ML VIAL IV PRN (19:15)
[2018-08-04] MEDS: TRAZODONE HCL 50 MG TAB PO SCH (20:19)
[2018-08-04] MEDS: METOPROLOL TARTRATE 100 MG TAB PO SCH (20:20)
[2018-08-04] MEDS ORDERED: MoRPHine SULFATE 2 MG/ML CARP IV PRN (21:51)
[2018-08-04] MEDS: ONDANSETRON INJ 2 MG/ML 2 ML VIAL IV PRN (23:37)
[2018-08-05] MEDS: POTASSIUM CHLORIDE 10 MEQ in D5W AND NSS 1,000 ML IV SCH ×3 (01:59→22:54)
[2018-08-05] MEDS ORDERED: PROCHLORPERAZINE MALEATE 5 MG TAB PO ONE (04:15)
[2018-08-05] MEDS: ONDANSETRON INJ 2 MG/ML 2 ML VIAL IV PRN ×3 (05:25→14:44)
[2018-08-05 06:23] LABS: Basophils # (auto) 0.03 K/uL (0-0.2); Basophils % (auto) 0.2 %; Eosinophils # (auto) 0.07 K/uL (0-0.5); Eosinophils % (auto) 0.5 %; Hemoglobin 14.9 g/dL (12.0-16.0); Immature Granulocytes # (auto) 0.03 K/uL (0.00-0.02); Immature Granulocytes % (auto) 0.2 %; Lymphocytes # (auto) 1.29 K/uL (1.2-3.4); Lymphocytes % (auto) 9.4 %; Mean Corpuscular Hgb Conc 33.9 g/dL (32-36); Monocytes # (auto) 0.71 K/uL (0.11-0.59); Monocytes % (auto) 5.2 %; Neutrophils # (auto) 11.55 K/uL (1.4-6.5); Neutrophils % (auto) 84.5 %; Platelet Count 287 K/uL (130-400); RDW Coefficient of Variation 13.8 % (11.5-14.5); Red Blood Count 4.73 M/uL (4.2-5.4); White Blood Count 13.68 K/uL (4.8-10.8)
[2018-08-05 06:50] LABS: BUN Creatinine Ratio 17.7 (10-20); Calcium 8.9 mg/dl (8.5-10.1); Creatinine Clr Calc Pharmacy 47.1 ml/min; Est GFR (African American) 68.5; Est GFR (Non-African American) 59.1; Magnesium 1.8 mg/dl (1.8-2.4); Potassium 3.7 mmol/L (3.5-5.1)
[2018-08-05 06:51] LABS: Phosphorus 3.9 mg/dl (2.5-4.9)
[2018-08-05] MEDS: ACETAMINOPHEN 1,000 MG/100 ML VIAL IV PRN ×2 (08:35→17:50)
[2018-08-05] MEDS: METOPROLOL TARTRATE 100 MG TAB PO SCH ×2 (08:37→20:11)
[2018-08-05] MEDS ORDERED: ONDANSETRON INJ 2 MG/ML 2 ML VIAL IV STA ×2 (08:52→08:55)
[2018-08-05] MEDS ORDERED: METOPROLOL TARTRATE 100 MG TAB PO SCH (09:00)
[2018-08-05] MEDS: FELODIPINE 5 MG TABCR PO SCH (12:42)
[2018-08-05] MEDS: DICLOFENAC SOD 1% GEL 100 GM TUBE EXT SCH ×3 (13:21→20:10)
--- NOTE | 2018-08-05 15:30 | Hospitalist Progress Note ---
Date of Service August 05, 2018 Assessment & Plan (1) Small bowel obstruction: Likely due to adhesions. Patient w/o any significant clinical improvement overnight. I encouraged her to reconsider NG tube placement. In fact several hours after my visit she had bilious emesis once again. NG tube was placed by . Formal consult to Dr. Crowell from general surgery placed. Cont NPO status, pain meds, IVF, etc. Present on Admission?: Yes (2) HTN (hypertension): cont outpatient meds may need scheduled IV hydralazine in addition to usual meds (3) Osteoarthritis of knees, bilateral: voltaren gel 4 gm QID to either knee (4) Hyponatremia: improved s/p fluids overnight BMP in am (5) Chronic kidney disease, stage 3a: creatinine stable today (6) DVT prophylaxis: add lovenox 40mg daily starting in am ambulation encouraged Subjective pt with frequent burping, emesis this am about 0600, nausea requiring frequent antiemetics, abd pain (upper), and no passage of flatus or stool patient had SBO in the early requiring ex lap also c/o b/l knee pain from OA (chronic) Constitutional: no fever Respiratory: no cough and no dyspnea Cardiovascular: no chest pain Physical Exam Vital Signs (Past 24 Hours): Last Vital Signs Temp 36.7 C 08/05/18 14:57 Pulse 82 08/05/18 14:57 Resp 16 08/05/18 14:57 BP 175/83 H 08/05/18 14:57 Pulse Ox 95 08/05/18 14:57 Constitutional: well developed and well nourished; no acute distress and not ill appearing ENMT: external ear and nose normal, oropharynx normal Respiratory: normal respiratory effort, lungs clear to auscultation Cardiovascular: Rate/Rhythm: regular rate and regular rhythm Heart Sounds: normal S1 and normal S2; no murmur Vessels: posterior tibial pulses present and dorsalis pedis pulses present; no JVD Gastrointestinal (Abdomen): Inspection/Auscultation: + abdomen distended (mod- severe) and normal bowel sounds Percussion/Palpation: + abdomen tender (upper abdomen); no guarding, abdomen not rigid and no hepatosplenomegaly Musculoskeletal: OA changes b/l knees Psychiatric: A+Ox3, euthymic affect Results & Data Laboratory Results Laboratory Results - last 24 hr 08/05/18 08/05/18 06:09 06:09 WBC 13.68 H RBC 4.73 Hgb 14.9 Hct 44.0 MCV 93.0 MCH 31.5 MCHC 33.9 RDW Std Deviation 47.0 H RDW Coeff of Mari 13.8 Plt Count 287 MPV 9.0 Immature Gran % (Auto) 0.2 Neut % (Auto) 84.5 Lymph % (Auto) 9.4 [place] % (Auto) 5.2 Eos % (Auto) 0.5 Baso % (Auto) 0.2 Immature Gran # (Auto) 0.03 H Neut # (Auto) 11.55 H Lymph # (Auto) 1.29 [place] # (Auto) 0.71 H Eos # (Auto) 0.07 Baso # (Auto) 0.03 Sodium 137 Potassium 3.7 Chloride 101 Carbon Dioxide 29 Anion Gap 7.0 BUN 16 Creatinine 0.90 Est Cr Clr Drug Dosing 47.1 Est GFR ( Amer) 68.5 Est GFR (Non-Af Amer) 59.1 BUN/Creatinine Ratio 17.7 Glucose 148 H Calcium 8.9 Phosphorus 3.9 Magnesium 1.8
--- NOTE | 2018-08-05 15:47 | Surgery Consultation ---
Date of Consultation August 05, 2018 Assessment & Plan (1) Small bowel obstruction: pt is a 82 year old female who was admitted to hospital for SBO, Plan, agree with conservative treatment first, NPO NG tube, IV fluid, repeat labs in am, no surgical indication now, will F/U, pt agrees with the plan, I answered all questions, History of Present Illness Attending Physician: Pacheco Main 82 y/o F c/o abd pain. Pt states this started around 830a today. She states that she was fine yesterday. 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 She ate her usual diet yesterday, 3 meals. She had no issues with n/v, abd pain, or early satiety. No bloating. She woke up this AM around her usual time and had a bowel movement that was not difficult and was regular, formed stool. She had prunes and coffee and her morning meds and then had sudden onset of sharp abd pain in the upper abd. She felt like she had to pass gas, but could not. She started to feel bloated. When this did not pass she called her daughter to bring her to the ED. Pt denies fever, SOB, chest pain, LE pain or swelling. 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 Still without n/v. Pt does not like taking morphine and is requesting something more mild for her pain if she needs it. Pt also states that she has great difficulty with her BP and side effects with other BP medications. She would prefer to stay on her home regimen if she is able. I ( Dr. Crowell) reviewed pt's H/P with pt, pt is still have mild abdominal pain, no nausea, no vomiting now, last BM yesterday. pt denies fever, no chest pain, I reviewed CT scan, IMPRESSION: 1. Multiple mildly dilated gas and fluid-filled loops of proximal to mid small bowel with an apparent transition point within the distal jejunum within the left midabdomen. Therefore, these findings likely represent a small bowel obstruction. 2. No change in the thickening of the sigmoid colon with multiple colonic d iverticula. No pericolonic inflammatory change at this time to suggest acute diverticulitis. Therefore, the colonic wall thickening is likely due to muscular hypertrophy. Follow-up scan can be performed if the patient symptoms continue to progress. 3. There are few subcentimeter pericolonic lymph nodes at the sigmoid colon which remain unchanged. 4. Additional findings as described above. Allergies Allergy/AdvReac Type Severity Reaction Status Date / Time Penicillins Allergy Unknown HIVES Verified 08/04/18 11:33 Cipro AdvReac Severe "MADE ME Unverified 03/20/17 02:09 DEATHLY ILL" ciprofloxacin AdvReac Severe "MADE ME Unverified 08/04/18 11:33 DEATHLY ILL" metronidazole AdvReac Severe "MADE ME Unverified 08/04/18 11:33 DEATHLY ILL" Home Medications Home Medications Medication Instructions Recorded Confirmed Type acetaminophen [Tylenol Extra 500 mg PO Q6H PRN 08/04/18 08/04/18 History Strength] calcium carbonate-vitamin D3 1 tab PO PM 08/04/18 08/04/18 History [Caltrate 600 + D] cholecalciferol (vitamin D3) 2,000 unit PO QAM 08/04/18 08/04/18 History [Vitamin D3] felodipine 10 mg PO QAM 08/04/18 08/04/18 History indapamide 1.25 mg PO QAM 08/04/18 08/04/18 History irbesartan 300 mg PO QAM 08/04/18 08/04/18 History metoprolol tartrate 100 mg PO BID 08/04/18 08/04/18 History trazodone 50 mg PO HS 08/04/18 08/04/18 History Patient History Medical History Small bowel obstruction (Acute) HTN (hypertension) (Chronic) Diverticulitis (Acute) Surgical History History of appendectomy (Resolved) History of section x2 History of laminectomy History of laparoscopy to remove fibroid tumor in uterus Social History Communication Ability: Effective Beliefs That Will Affect Care: None marital status: / Current Living Situation: Alone Other Information That Helps Us Care for You: No Feels Safe at Home: Yes Smoking Status: Never smoker Hx Alcohol Use: No Hx Substance Use: No Review of Systems Constitutional: as per Subjective / HPI Ear, Nose, Mouth, Throat: as per Subjective / HPI Respiratory: as per Subjective / HPI Cardiovascular: as per Subjective / HPI Additional Comments: heart valve disease, HTN Gastrointestinal: as per Subjective / HPI S/P appendectomy, exploratory laparotomy, Genitourinary (Female): as per Subjective / HPI fibromyalgia Neurologic: as per Subjective / HPI Psychiatric: as per Subjective / HPI Endocrine: as per Subjective / HPI Hematologic / Lymphatic: as per Subjective / HPI Physical Exam Vital Signs (Past 24 Hours): Last Vital Signs Temp 36.7 C 08/05/18 14:57 Pulse 82 08/05/18 14:57 Resp 16 08/05/18 14:57 BP 175/83 H 08/05/18 14:57 Pulse Ox 95 08/05/18 14:57 Constitutional: WD/WN, vitals as above well developed and well nourished Neck: trachea midline, no thyromegaly Respiratory: normal respiratory effort, lungs clear to auscultation normal respiratory effort Cardiovascular: Rate/Rhythm: regular rate and regular rhythm Heart Sounds: + murmur Gastrointestinal (Abdomen): Percussion/Palpation: abdomen soft some tenderness at periumbilical area, no rebound pain, Neurologic: awake Psychiatric: Orientation: alert and oriented x 3 Results & Data Laboratory Results Abnormal lab results 08/05/18 08/05/18 Range/Units 06:09 06:09 WBC 13.68 H (4.8-10.8) K/uL RDW Std Deviation 47.0 H (36.4-46.3) fL Immature Gran # (Auto) 0.03 H (0.00-0.02) K/uL Neut # (Auto) 11.55 H (1.4-6.5) K/uL [place] # (Auto) 0.71 H (0.11-0.59) K/uL Glucose 148 H (70-99) mg/dl Diagnostic Findings ABDOMEN AND PELVIS CT WITH IV CONTRAST CT DOSE: 655.29 mGy.cm HISTORY: Generalized abdominal pain. TECHNIQUE: Multiaxial CT images of the abdomen and pelvis were performed following the use of intravenous contrast. A dose lowering technique was utilized adhering to the principles of ALARA. COMPARISON STUDY: Abdomen and pelvis CT 01/19/2018. FINDINGS: The heart remains enlarged. Bibasilar linear densities favor subsegmental atelectasis. No pneumoperitoneum. No pneumatosis. No suspicious lytic or blastic osseous lesions. Tiny fat-containing umbilical hernia. Small fat-containing right inguinal hernia. No hepatic or splenic masses. The adrenal glands, pancreas, gallbladder are unremarkable. No retroperitoneal lymphadenopathy. No hydronephrosis. A few subcentimeter bilateral renal hypodense lesions. These are technically too small to characterize but favor cysts. The bladder, uterus, left ovary are unremarkable. There is a 2 cm cyst within the right ovary, unchanged. Moderate thickening of the mid sigmoid colon with multiple colonic diverticula. There are few subcentimeter pericolonic lymph nodes, unchanged. No pericolonic fat stranding to suggest acute diverticulitis at this time. The bowel wall thickening favors muscular hypertrophy given the long-term stability. Questionable thickening of the distal transverse colon and descending colon is likely due to underdistention. Multiple mildly dilated gas and fluid-filled loops of bowel to mid small bowel. There appears to be a transition point within the distal jejunum best seen on image 286. Therefore, these findings favor a small bowel obstruction. IMPRESSION: 1. Multiple mildly dilated gas and fluid-filled loops of proximal to mid small bowel with an apparent transition point within the distal jejunum within the left midabdomen. Therefore, these findings likely represent a small bowel obstruction. 2. No change in the thickening of the sigmoid colon with multiple colonic diverticula. No pericolonic inflammatory change at this time to suggest acute diverticulitis. Therefore, the colonic wall thickening is likely due to muscular hypertrophy. Follow-up scan can be performed if the patient symptoms continue to progress. 3. There are few subcentimeter pericolonic lymph nodes at the sigmoid colon which remain unchanged. 4. Additional findings as described above.
--- NOTE | 2018-08-05 19:09 | XRay Report ---
XR KUB CLINICAL HISTORY: NG tube Placement COMPARISON STUDY: CT 08/04/2018 FINDINGS: Nasogastric tube placed within the distal stomach. Mild generalized nonobstructive ileus. IMPRESSION: Nasogastric tube placed in the distal stomach. The above report was generated using voice recognition software. It may contain grammatical, syntax or spelling errors. Electronically signed by: Wesley Sanchez M.D. 08/05/2018 7:08 PM
[2018-08-05] MEDS: TRAZODONE HCL 50 MG TAB PO SCH (21:57)
[2018-08-06] MEDS: ACETAMINOPHEN 1,000 MG/100 ML VIAL IV PRN (03:17)
[2018-08-06 05:49] LABS: Hematocrit (blood only) 38.7 % (37-47); Hemoglobin 12.9 g/dL (12.0-16.0); Mean Corpuscular Hgb Conc 33.3 g/dL (32-36); Mean Corpuscular Volume 93.5 fL (80-100); Mean Platelet Volume 9.1 fL (7.4-10.4); Platelet Count 270 K/uL (130-400); RDW Standard Deviation 47.5 fL (36.4-46.3); Red Blood Count 4.14 M/uL (4.2-5.4); White Blood Count 11.24 K/uL (4.8-10.8)
[2018-08-06 06:24] LABS: BUN Creatinine Ratio 14.7 (10-20); Calcium 8.2 mg/dl (8.5-10.1); Est GFR (African American) 56.2; Est GFR (Non-African American) 48.5; Magnesium 1.7 mg/dl (1.8-2.4); Potassium 3.7 mmol/L (3.5-5.1)
[2018-08-06] MEDS: FELODIPINE 5 MG TABCR PO SCH (07:41)
[2018-08-06] MEDS: METOPROLOL TARTRATE 100 MG TAB PO SCH ×2 (07:41→21:11)
[2018-08-06] MEDS: ENOXAPARIN INJ 40 MG/0.4 ML SYR SQ SCH (07:42)
[2018-08-06] MEDS: DICLOFENAC SOD 1% GEL 100 GM TUBE EXT SCH ×4 (08:58→21:35)
[2018-08-06] MEDS: MAGNESIUM SULFATE / D5W 1 GM/100 ML BAG IV SCH ×2 (09:08→10:34)
[2018-08-06] MEDS: POTASSIUM CHLORIDE 10 MEQ in D5W AND NSS 1,000 ML IV SCH ×2 (12:38→23:15)
--- NOTE | 2018-08-06 16:10 | Surgery Progress Note ---
Date of Service August 06, 2018 pt feels better, no abdominal pain, no nausea, no vomiting, NG - 1850ml, not pass gas yet, Assessment & Plan (1) Small bowel obstruction: doing fine, continue treatment, repeat KUB tomorrow, will F/U Subjective Constitutional: as per Subjective / HPI Ear, Nose, Mouth, Throat: as per Subjective / HPI Respiratory: as per Subjective / HPI Cardiovascular: as per Subjective / HPI Gastrointestinal: as per Subjective / HPI Genitourinary (Female): + as per Subjective / HPI Neurologic: as per Subjective / HPI Psychiatric: as per Subjective / HPI Endocrine: as per Subjective / HPI Hematologic / Lymphatic: as per Subjective / HPI Physical Exam Vital Signs (Past 24 Hours): Last Vital Signs Temp 36.3 C L 08/06/18 14:59 Pulse 80 08/06/18 14:59 Resp 18 08/06/18 14:59 BP 146/79 H 08/06/18 14:59 Pulse Ox 94 08/06/18 14:59 Constitutional: WD/WN, vitals as above Neck: trachea midline, no thyromegaly Respiratory: normal respiratory effort, lungs clear to auscultation normal respiratory effort Cardiovascular: Rate/Rhythm: regular rate and regular rhythm Gastrointestinal (Abdomen): Percussion/Palpation: abdomen soft no tendnerness, slightly distend Neurologic: awake Psychiatric: Orientation: alert and oriented x 3 Results & Data Laboratory Results Abnormal lab results 08/06/18 08/06/18 Range/Units 05:28 05:28 WBC 11.24 H (4.8-10.8) K/uL RBC 4.14 L (4.2-5.4) M/uL RDW Std Deviation 47.5 H (36.4-46.3) fL Glucose 118 H (70-99) mg/dl Calcium 8.2 L (8.5-10.1) mg/dl Magnesium 1.7 L (1.8-2.4) mg/dl
[2018-08-06] MEDS ORDERED: NURSING DECISION MEDICATION ONE (17:25)
--- NOTE | 2018-08-06 17:41 | Medical Student Progress Note ---
Date of Service August 06, 2018 Assessment & Plan (1) Small bowel obstruction: 82 y/o F with hx of HTN, previous adb surgeries, and SBO in 2002, admitted for SBO after developing abd pain. Improving after NG tube placement (but still no passage of gas or BM); will give 24-48hrs b/f consider alternative intervention; surgery consult is in agreement continue NPO, IV fluid with KCl supp while WBC is elevated at 11.2; pt has no other features concerning for complicated SBO (ie no fever, tachycardic, periotoneal signs) Subjective 82 y/o F with hx of HTN, previous adb surgeries, and SBO in 2002, admitted for SBO after developing abd pain. abd soreness this AM improvement in n/v after NG tube placement yesterday Not passing gas, no BM no f/c, SOB, or chest pain GENERAL, CONSTITUTIONAL- No Fever, Chills HEART, CARDIOVASCULAR- No Chest pain or pressure, Arrhythmia or palpitations, Shortness of breath, Peripheral edema, RESPIRATORY- No Cough, Shortness of breath, Wheezing GASTROINTESTINAL- abd soreness, no Heartburn, Bloody stool GENITOURINARY- No Frequent urination, Urgency Physical Exam Vital Signs (Past 24 Hours): Last Vital Signs Temp 36.3 C L 08/06/18 14:59 Pulse 80 08/06/18 14:59 Resp 18 08/06/18 14:59 BP 146/79 H 08/06/18 14:59 Pulse Ox 94 08/06/18 14:59 Physical Exam: GENERAL: WD/WN, alter, cooperative, no acute distress HEENT: Mouth: Moist mucous membranes, Nervous System: Mental status: Alert and oriented x 3, good concentration. Motor: Strength 5/5 in all muscle groups. Chest/Lung: Clear to auscultation bilaterally. No rales, rhonchi, wheezing, or rubs. Heart: PMI not displaced. Regular rate and rhythm. Normal S1, S2. No murmurs, rubs, or gallops. Abdomen: distended, tender, hypoactive BS present, tympanic No clubbing, cyanosis, or edema.
[2018-08-06] MEDS: CHLORASEPTIC 1.4% SOLN 180 ML BTL MT PRN ×2 (18:07→21:08)
--- NOTE | 2018-08-06 20:03 | Hospitalist Progress Note ---
Date of Service August 06, 2018 Assessment & Plan (1) Small bowel obstruction: Likely due to adhesions. No significant improvement overnight. Cont NG tube, NPO, IVF. Gen Surg continues to follow. Replace low mag. (2) HTN (hypertension): cont outpatient meds (3) Osteoarthritis of knees, bilateral: voltaren gel 4 gm QID to either knee (4) Hyponatremia: resolved (5) Chronic kidney disease, stage 3a: creatinine stable again today (6) DVT prophylaxis: lovenox 40mg daily (7) Hypomagnesemia: replace repeat mag level AM Subjective no passage of flatus NG Tube still draining copious bile abdomen not as sore today walking the hallways Respiratory: no dyspnea Cardiovascular: no chest pain Gastrointestinal: + abdominal pain and + bloating; no nausea Physical Exam Vital Signs (Past 24 Hours): Last Vital Signs Temp 36.3 C L 08/06/18 14:59 Pulse 80 08/06/18 14:59 Resp 18 08/06/18 14:59 BP 146/79 H 08/06/18 14:59 Pulse Ox 94 08/06/18 14:59 Constitutional: well developed and well nourished; no acute distress and not ill appearing ENMT: external ear and nose normal, oropharynx normal Respiratory: normal respiratory effort, lungs clear to auscultation Cardiovascular: Rate/Rhythm: regular rate and regular rhythm Heart Sounds: normal S1 and normal S2; no murmur Vessels: posterior tibial pulses present and dorsalis pedis pulses present; no JVD Gastrointestinal (Abdomen): Inspection/Auscultation: + abdomen distended (no significant change from yesterday) and normal bowel sounds Percussion/P alpation: + abdomen tender (mimimal); no guarding, abdomen not rigid and no hepatosplenomegaly Psychiatric: A+Ox3, euthymic affect Results & Data Laboratory Results Laboratory Results - last 24 hr 08/06/18 08/06/18 05:28 05:28 WBC 11.24 H RBC 4.14 L Hgb 12.9 Hct 38.7 MCV 93.5 MCH 31.2 MCHC 33.3 RDW Std Deviation 47.5 H RDW Coeff of Mari 14.0 Plt Count 270 MPV 9.1 Sodium 140 Potassium 3.7 Chloride 103 Carbon Dioxide 30 Anion Gap 6.0 BUN 16 Creatinine 1.06 Est Cr Clr Drug Dosing 40.0 Est GFR ( Amer) 56.2 Est GFR (Non-Af Amer) 48.5 BUN/Creatinine Ratio 14.7 Glucose 118 H Calcium 8.2 L Magnesium 1.7 L
[2018-08-06] MEDS: TRAZODONE HCL 50 MG TAB PO SCH (22:20)
[2018-08-07] MEDS: ACETAMINOPHEN 1,000 MG/100 ML VIAL IV PRN (03:26)
[2018-08-07 08:28] LABS: BUN Creatinine Ratio 19.6 (10-20); Calcium 8.3 mg/dl (8.5-10.1); Creatinine Clr Calc Pharmacy 57.3 ml/min; Est GFR (African American) 86.8; Est GFR (Non-African American) 74.9; Magnesium 2.1 mg/dl (1.8-2.4); Potassium 3.4 mmol/L (3.5-5.1)
[2018-08-07] MEDS: FELODIPINE 5 MG TABCR PO SCH (08:44)
[2018-08-07] MEDS: ENOXAPARIN INJ 40 MG/0.4 ML SYR SQ SCH (08:44)
[2018-08-07] MEDS: DICLOFENAC SOD 1% GEL 100 GM TUBE EXT SCH ×4 (08:44→21:29)
[2018-08-07] MEDS: METOPROLOL TARTRATE 100 MG TAB PO SCH ×2 (08:44→21:29)
[2018-08-07] MEDS: POTASSIUM CHLORIDE 20 MEQ in D5W AND NSS 1,000 ML IV SCH ×2 (09:25→19:19)
[2018-08-07] MEDS: POTASSIUM CHLORIDE 10 MEQ in D5W AND NSS 1,000 ML IV SCH (09:26)
[2018-08-07] MEDS: HydrALAZINE HCL 20 MG/ML VIAL IV SCH ×4 (09:53→23:44)
--- NOTE | 2018-08-07 10:04 | Surgery Progress Note ---
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 Patient reluctant on any surgical procedure. Continue NPO, NGT to LIS, ambulate 3-4 times daily, dulcolax suppository and Miralax via NGT. Continue pain management as needed IV Zofran as needed Continue medical management IF no significant return of bowel function, possible OR tomorrow afternoon. repeat am labs including cbc, bmp Dr. Crowell has seen and examined pt, agrees with above. Subjective more of tenderness in belly no flatus or bowel movement, no urge to pass gas no nausea or vomiting walking hallway when able and when she has help 2-3 times yesterday no chest pain or SOB Physical Exam Vital Signs (Past 24 Hours): Last Vital Signs Temp 37 C 08/07/18 07:32 Pulse 82 08/07/18 08:43 Resp 16 08/07/18 07:32 BP 145/90 H 08/07/18 08:43 Pulse Ox 91 08/07/18 07:32 Constitutional: WD/WN, vitals as above no acute distress Respiratory: normal respiratory effort; no respiratory distress Gastrointestinal (Abdomen): Inspection/Auscultation: + abdomen distended (moderate, Tympanic on percussion) and + hypoactive bowel sounds Percussion/Palpation: + abdomen tender (generalized) and abdomen soft; no guarding and abdomen not rigid NGT with dark bilious output Skin: no rashes, warm and dry Psychiatric: A+Ox3, euthymic affect Results & Data Laboratory Results 08/07/18 Range/Units 07:00 Sodium 139 (136-145) mmol/L Potassium 3.4 L (3.5-5.1) mmol/L Chloride 103 (98-107) mmol/L Carbon Dioxide 29 (21-32) mmol/L Anion Gap 7.0 (3-11) BUN 15 (7-18) mg/dl Creatinine 0.74 D (0.6-1.2) mg/dl Est Cr Clr Drug Dosing 57.3 ml/min Est GFR ( Amer) 86.8 Est GFR (Non-Af Amer) 74.9 BUN/Creatinine Ratio 19.6 (10-20) Glucose 109 H (70-99) mg/dl Calcium 8.3 L (8.5-10.1) mg/dl Magnesium 2.1 (1.8-2.4) mg/dl
[2018-08-07] MEDS ORDERED: BISACODYL 10 MG SUPP PR STA (13:00)
[2018-08-07] MEDS ORDERED: POLYETHYLENE (MIRALAX) 17 GM PACK NG ONE (13:12)
--- NOTE | 2018-08-07 14:05 | XRay Report ---
KUB CLINICAL HISTORY: Small bowel obstruction. FINDINGS: 2 AP, portable, supine abdominal radiographs are compared to study dated 08/05/2018 and navarro elated with abdominal CT dated 08/04/2018. An enteric tube projects over the distal stomach. There is e vidence of persistent small bowel obstruction. Small bowel loops measure up to 5 cm. No evidence of i ntraperitoneal free air is seen on these supine images. Atherosclerotic calcification is noted in the abdominal aorta. Calcified phleboliths are noted in the pelvis. The skeletal structures are osteopen ic. There is lumbosacral spondylosis. IMPRESSION: Findings are consistent with persistent small bowel obstruction. Electronically signed by: Kris Douglass M.D. 08/07/2018 2:04 PM
--- NOTE | 2018-08-07 16:09 | Medical Student Progress Note ---
Date of Service August 07, 2018 Assessment & Plan (1) Small bowel obstruction: 82 y/o F with hx of HTN, previous adb surgeries, and SBO in 2002, admitted for SBO after developing abd pain. NGT with 1800 output last 24 hours, 450 mini shifter, 400 this am, dark bilious KUB from today 08/07-- shows persistent SBO Plan/input per general surgery consult: "Will continue conservative measures again today. Patient reluctant on any surgical procedure. Continue NPO, NGT to LIS, ambulate 3-4 times daily, dulcolax suppository and Miralax via NGT. Continue pain management as needed IV Zofran as needed Continue medical management IF no significant return of bowel function, possible OR tomorrow afternoon. repeat am labs including cbc, bmp" Pt's K is low at 3.4-- will increase 10MEq to 20Meq of KCl supp in IV fluid while WBC is elevated at 11.2; pt has no other features concerning for complicated SBO (ie no fever, tachycardic, periotoneal signs) Subjective 82 y/o F with hx of HTN, previous adb surgeries, and SBO in 2002, admitted for SBO after developing abd pain. abd soreness Not passing gas, no BM pt is ambulating no f/c, SOB, or chest pain GENERAL, CONSTITUTIONAL- No Fever, Chills HEART, CARDIOVASCULAR- No Chest pain or pressure, Arrhythmia or palpitations, Shortness of breath, Peripheral edema, RESPIRATORY- No Cough, Shortness of breath, Wheezing GASTROINTESTINAL- abd soreness, no Heartburn, Bloody stool GENITOURINARY- No Frequent urination, Urgency Physical Exam Vital Signs (Past 24 Hours): Last Vital Signs Temp 36.6 C 08/07/18 15:19 Pulse 80 08/07/18 15:19 Resp 16 08/07/18 15:19 BP 122/74 08/07/18 15:19 Pulse Ox 92 08/07/18 15:19 Physical Exam: GENERAL: WD/WN, alter, cooperative, no acute distress HEENT: Mouth: Moist mucous membranes, Nervous System: Mental status: Alert and oriented x 3, good concentration. Motor: Strength 5/5 in all muscle groups. Chest/Lung: Clear to auscultation bilaterally. No rales, rhonchi, wheezing, or rubs. Heart: Regular rate and rhythm. Normal S1, S2. No murmurs, rubs, or gallops. Abdomen: distended, tender, hypoactive BS present, tympanic No clubbing, cyanosis, or edema.
--- NOTE | 2018-08-07 20:58 | Hospitalist Progress Note ---
Date of Service August 07, 2018 Assessment & Plan (1) Small bowel obstruction: The patient's SBO continues to be managed with conservative measures including NG tube decompression, IV fluids, and bowel rest. Despite such she has had no clinical or radiographic improvement. General surgery continues to follow. If the patient does not spontaneously start to pass flatus by tomorrow she may need to go to the operating room for exploratory laparotomy. We will repeat her labs in the morning. (2) HTN (hypertension): Patient has had significant lability in her blood pressures. This is likely due to poor absorption of her oral medications. We will continue her metoprolol since there is a good likelihood she may need surgery. We will hold her other oral medications and in lieu we will start hydralazine 5 mg IV every 8 hours scheduled. We can adjust the hydralazine as necessary for optimal blood pressure control. (3) Osteoarthritis of knees, bilateral: Continue Voltaren gel. (4) Hyponatremia: Resolved (5) Hypomagnesemia: Resolved (6) Chronic kidney disease, stage 3a: Creatinine continues to remain stable. Check a BMP in the morning for stability. (7) Hypokalemia: Change potassium in her fluids from 10 mEq/L to 20 mEq/L. Repeat basic metabolic panel in the morning. (8) DVT prophylaxis: Continue Lovenox. Continue frequent ambulation. Subjective The patient had nearly 2 L of bilious output from her NG tube overnight. She has not passed any spontaneous flatus or stool. She was seen by general surgery early on the day and was given a dose of MiraLAX via NG tube as well as a Dulcolax suppository. With the Dulcolax she produced a couple small pellets of hard stool. Her abdominal distention continues. He states he has a very strong viola and is hopeful that with prayer she opens up spontaneously. She also believes the Voltaren gel has been very effective for her osteoarthritis of the knees. She requests a prescription for the Voltaren at time of discharge. Constitutional: no fever Respiratory: no cough and no dyspnea Cardiovascular: no chest pain Physical Exam Vital Signs (Past 24 Hours): Last Vital Signs Temp 36.6 C 08/07/18 15:19 Pulse 86 08/07/18 17:02 Resp 16 08/07/18 15:19 BP 145/82 H 08/07/18 17:44 Pulse Ox 92 08/07/18 15:19 Constitutional: well developed, well nourished and average body habitus; no acute distress, not ill appearing and no altered mental status ENMT: external ear and nose normal, oropharynx normal NG tube in place Respiratory: normal respiratory effort, lungs clear to auscultation Cardiovascular: RRR, no murmur, no edema Heart Sounds: normal S1 and normal S2 Vessels: posterior tibial pulses present and dorsalis pedis pulses present; no JVD Gastrointestinal (Abdomen): Abdomen continues to remain quite distended. She has diminished bowel sounds. There is no tenderness. There are no peritoneal signs. There is no hepatosplenomegaly. Psychiatric: A+Ox3, euthymic affect Results & Data Laboratory Results Laboratory Results - last 24 hr 08/07/18 07:00 Sodium 139 Potassium 3.4 L Chloride 103 Carbon Dioxide 29 Anion Gap 7.0 BUN 15 Creatinine 0.74 D Est Cr Clr Drug Dosing 57.3 Est GFR ( Amer) 86.8 Est GFR (Non-Af Amer) 74.9 BUN/Creatinine Ratio 19.6 Glucose 109 H Calcium 8.3 L Magnesium 2.1
[2018-08-07] MEDS: TRAZODONE HCL 50 MG TAB PO SCH (22:14)
[2018-08-08] MEDS: ACETAMINOPHEN 1,000 MG/100 ML VIAL IV PRN (01:32)
[2018-08-08 04:13] LABS: Basophils # (auto) 0.02 K/uL (0-0.2); Basophils % (auto) 0.2 %; Eosinophils # (auto) 0.35 K/uL (0-0.5); Eosinophils % (auto) 4.1 %; Hematocrit (blood only) 37.2 % (37-47); Hemoglobin 12.4 g/dL (12.0-16.0); Immature Granulocytes # (auto) 0.01 K/uL (0.00-0.02); Immature Granulocytes % (auto) 0.1 %; Lymphocytes # (auto) 1.66 K/uL (1.2-3.4); Lymphocytes % (auto) 19.7 %; Mean Corpuscular Hgb Conc 33.3 g/dL (32-36); Monocytes # (auto) 1.09 K/uL (0.11-0.59); Monocytes % (auto) 12.9 %; Neutrophils # (auto) 5.31 K/uL (1.4-6.5); Platelet Count 254 K/uL (130-400); RDW Coefficient of Variation 13.8 % (11.5-14.5); RDW Standard Deviation 47.3 fL (36.4-46.3); White Blood Count 8.44 K/uL (4.8-10.8)
[2018-08-08 04:31] LABS: BUN Creatinine Ratio 17.5 (10-20); Calcium 7.7 mg/dl (8.5-10.1); Creatinine Clr Calc Pharmacy 57.3 ml/min; Est GFR (African American) 86.8; Est GFR (Non-African American) 74.9; Potassium 3.4 mmol/L (3.5-5.1)
[2018-08-08] MEDS: POTASSIUM CHLORIDE 20 MEQ in D5W AND NSS 1,000 ML IV SCH (05:09)
[2018-08-08] MEDS: HydrALAZINE HCL 20 MG/ML VIAL IV SCH ×2 (08:18→21:50)
[2018-08-08] MEDS ORDERED: POTASSIUM CHLORIDE / WTR 10 MEQ/100 ML PLCT IV ONE (09:32)
[2018-08-08] MEDS: METOPROLOL TARTRATE 100 MG TAB PO SCH ×3 (09:44→22:17)
[2018-08-08] MEDS: DICLOFENAC SOD 1% GEL 100 GM TUBE EXT SCH ×4 (09:44→22:11)
[2018-08-08] MEDS: ENOXAPARIN INJ 40 MG/0.4 ML SYR SQ SCH (09:53)
--- NOTE | 2018-08-08 10:31 | Surgery Progress Note ---
Date of Service August 08, 2018 Assessment & Plan (1) Small bowel obstruction: Still no return of bowel function Vitals stable KUB yesterday 08/07/18 showing persistent small bowel obstruction abdomen distended but softer today, NGT with 2800 output last 24 hours, dark green bilious Plan: Dr. Crowell recommends exploratory laparotomy given no return of bowel function in last 4 days later today. Discussed procedure and risks including bleeding, infection, injury to surrounding organs/tissues, myocardial infarction, stroke, DVT, even . Patient understood and stated she could not go on like this any further and signed consent form. Dr. Crowell has seen and examined pt, agrees with above. Patient asked to speak to me and had a few questions: She was very concerned about surgery and the risks and became upset. I discussed with patient the benefit of procedure (release of bowel obstruction and return of bowel function which could get her back to her baseline functional status) vs not doing procedure (requiring prolonged NGT, awaiting return of bowel function, and/or supplemental nutrition, which would significantly reduce her quality of life) I had a long discussion with patient, her daughter, and granddaughter in regards to recommendation for exploratory laparotomy as patient has not had return of bowel function in 4 days and increased NGT output in last 24 hours. She did have small hard pellet stool after suppository but does not have any spontaneous bowel function without stimulation. Patient has good functional status at baseline: lives alone, cooks, cleans, does laundry on her own. She is concerned about surgery and is risks given her age. I discussed again the benefits vs risks (as above) with patient as well as expected post op course. Patient was reassured given all this information and plans to proceed with surgical intervention. Will consult cardiology for preoperative assessment given patient's age and reassurance to patient Hold Lovenox continue current management Subjective has not passed any gas small hard bowel movement with suppository but nothing since no nausea or vomiting belly feels softer today "abdominal soreness, not pain" Physical Exam Vital Signs (Past 24 Hours): Last Vital Signs Temp 36.9 C 08/08/18 07:55 Pulse 90 08/08/18 07:55 Resp 18 08/08/18 07:55 BP 176/86 H 08/08/18 07:55 Pulse Ox 92 08/08/18 07:55 Constitutional: WD/WN, vitals as above no acute distress Respiratory: normal respiratory effort; no respiratory distress Gastrointestinal (Abdomen): Inspection/Auscultation: + abdomen distended (mild) and + hypoactive bowel sounds Percussion/Palpation: abdomen soft; abdomen nontender, no guarding and abdomen not rigid Skin: no rashes, warm and dry Psychiatric: A+Ox3, euthymic affect Results & Data Laboratory Results 08/08/18 08/08/18 Range/Units 03:54 03:54 WBC 8.44 (4.8-10.8) K/uL RBC 4.00 L (4.2-5.4) M/uL Hgb 12.4 (12.0-16.0) g/dL Hct 37.2 (37-47) % MCV 93.0 (80-100) fL MCH 31.0 (25-34) pg MCHC 33.3 (32-36) g/dL RDW Std Deviation 47.3 H (36.4-46.3) fL RDW Coeff of Mari 13.8 (11.5-14.5) % Plt Count 254 (130-400) K/uL MPV 9.0 (7.4-10.4) fL Immature Gran % (Auto) 0.1 % Neut % (Auto) 63.0 % Lymph % (Auto) 19.7 % [place] % (Auto) 12.9 % Eos % (Auto) 4.1 % Baso % (Auto) 0.2 % Immature Gran # (Auto) 0.01 (0.00-0.02) K/uL Neut # (Auto) 5.31 (1.4-6.5) K/uL Lymph # (Auto) 1.66 (1.2-3.4) K/uL [place] # (Auto) 1.09 H (0.11-0.59) K/uL Eos # (Auto) 0.35 (0-0.5) K/uL Baso # (Auto) 0.02 (0-0.2) K/uL Sodium 139 (136-145) mmol/L Potassium 3.4 L (3.5-5.1) mmol/L Chloride 106 (98-107) mmol/L Carbon Dioxide 29 (21-32) mmol/L Anion Gap 4.0 (3-11) BUN 13 (7-18) mg/dl Creatinine 0.74 (0.6-1.2) mg/dl Est Cr Clr Drug Dosing 57.3 ml/min Est GFR ( Amer) 86.8 Est GFR (Non-Af Amer) 74.9 BUN/Creatinine Ratio 17.5 (10-20) Glucose 119 H (70-99) mg/dl Calcium 7.7 L (8.5-10.1) mg/dl Diagnostic Findings KUB CLINICAL HISTORY: Small bowel obstruction. FINDINGS: 2 AP, portable, supine abdominal radiographs are compared to study dated 08/05/2018 and correlated with abdominal CT dated 08/04/2018. An enteric tube projects over the distal stomach. There is evidence of persistent small bowel obstruction. Small bowel loops measure up to 5 cm. No evidence of intraperitoneal free air is seen on these supine images. Atherosclerotic calcification is noted in the abdominal aorta. Calcified phleboliths are noted in the pelvis. The skeletal structures are osteopenic. There is lumbosacral spondylosis. IMPRESSION: Findings are consistent with persistent small bowel obstruction.
--- NOTE | 2018-08-08 11:37 | Cardiology Consultation ---
Date of Consultation August 08, 2018 Assessment & Plan (1) Valvular heart disease: She has a number of valvular abnormalities identified on echocardiography last year, this includes mild to moderate mitral regurgitation, mild aortic insufficiency and aortic sclerosis without stenosis. On exam it does not seem likely that these have progressed and her symptoms do not suggested either. Perhaps he should be evaluated by echocardiography however. (2) HTN (hypertension): She has labile blood pressure although it tends to run normal to high, she does not seem to have low blood pressures here in the hospital. I have not adjusted her blood pressure medications going into surgery but she probably should be better controlled prior to discharge, currently she cannot take p.o. medications. (3) Cardiomyopathy: She had mild left ventricular dysfunction identified at her last echo, ejection fraction 50-55% but the ventricle was felt to be globally hypokinetic. Her valve disease is not severe enough to explain it at the time, and she does not have symptoms to suggest progression. However going into surgery I think it would be worthwhile to see what her left ventricular function is, I cannot imagine that would keep us from allowing surgery but since we do not know a cause of her left ventricular dysfunction I think it would be worthwhile to make sure it has not worsened. I will arrange that. History of Present Illness Reason for Consultation: Preoperative clearance for surgery Attending Physician: Pachceo Main History of Present Illness This is an 82-year-old woman who was originally in the [place] area but now lives here and has a history of labile hypertension and chronic kidney disease. She has significant no known heart disease although historically she was followed for a "leaking valve" before she moved to this area. She presented with abdominal pain starting in the morning of August 04, 2018. Evaluation has identified a small bowel obstruction of unknown cause for which I believe surgery is planned this afternoon. She is awake and alert and sitting in a chair with her family in attendance. She is feeling fairly well, she is not happy about surgery but accepts that she needs it. She denies cardiac symptoms, prior to this she was not having difficulty with exertion although she does not climb steps. She does not get short of breath, have chest discomfort or palpitations with exertion. She notes no significant leg swelling and no orthopnea or PND. Allergies Allergy/AdvReac Type Severity Reaction Status Date / Time Penicillins Allergy Unknown HIVES Verified 08/04/18 11:33 Cipro AdvReac Severe "MADE ME Unverified 03/20/17 02:09 DEATHLY ILL" ciprofloxacin AdvReac Severe "MADE ME Unverified 08/04/18 11:33 DEATHLY ILL" metronidazole AdvReac Severe "MADE ME Unverified 08/04/18 11:33 DEATHLY ILL" Home Medications Home Medications Medication Instructions Recorded Confirmed Type acetaminophen [Tylenol Extra 500 mg PO Q6H PRN 08/04/18 08/04/18 History Strength] calcium carbonate-vitamin D3 1 tab PO PM 08/04/18 08/04/18 History [Caltrate 600 + D] cholecalciferol (vitamin D3) 2,000 unit PO QAM 08/04/18 08/04/18 History [Vitamin D3] felodipine 10 mg PO QAM 08/04/18 08/04/18 History indapamide 1.25 mg PO QAM 08/04/18 08/04/18 History irbesartan 300 mg PO QAM 08/04/18 08/04/18 History metoprolol tartrate 100 mg PO BID 08/04/18 08/04/18 History trazodone 50 mg PO HS 08/04/18 08/04/18 History Patient History Medical History Small bowel obstruction (Acute) HTN (hypertension) (Chronic) Diverticulitis (Acute) Surgical History History of appendectomy (Resolved) History of section x2 History of laminectomy History of laparoscopy to remove fibroid tumor in uterus Family History Other No pertinent family history Social History Communication Ability: Effective Beliefs That Will Affect Care: None marital status: / Current Living Situation: Alone Other Information That Helps Us Care for You: No Feels Safe at Home: Yes Smoking Status: Never smoker Hx Alcohol Use: No Hx Substance Use: No Review of Systems Negative for lightheadedness, dizziness, palpitations, presyncope or syncope. No exertional symptoms, no dyspnea on exertion or exertional chest pain. No orthopn ea or PND or peripheral edema. No GI complaints currently, presented with abdominal discomfort and vomiting, no bleeding. No neurologic complaints such as TIA or stroke symptoms. Other systems negative. Physical Exam Vital Signs (Past 24 Hours): Last Vital Signs Temp 36.9 C 08/08/18 07:55 Pulse 90 08/08/18 07:55 Resp 18 08/08/18 07:55 BP 153/88 H 08/08/18 10:31 Pulse Ox 92 08/08/18 07:55 Physical Exam: Constitutional: Alert, cooperative and in no distress. HEENT: Unremarkable, she does have an NG tube in place draining bilious material Neck: No jugular venous distention, carotid pulses are normal and equal bilaterally without bruits. Pulmonary: Clear to auscultation bilaterally. Cardiac: Regular rhythm with no significant murmur, gallop or rub. Abdomen: Soft, nontender with absent bowel sounds. Extremities: No edema. Distal pulses intact. Neurologic: No focal findings. Gait is steady. Skin: No rash, ecchymoses or petechiae. Results & Data Diagnostic Findings Her electrocardiogram on admission shows sinus rhythm at 87 bpm, a leftward axis, left ventricular hypertrophy, no acute abnormality She had an echocardiogram performed on January 20, 2018, this showed normal left ventricular size with low normal systolic function with what was felt to be borderline global hypokinesis, mild left ventricular hypertrophy, mild aortic sclerosis without stenosis, mild aortic insufficiency, mild to moderate mitral regurgitation and a mildly dilated a sending aorta.
--- NOTE | 2018-08-08 14:20 | Medical Student Progress Note ---
Date of Service August 08, 2018 Assessment & Plan (1) Small bowel obstruction: 82 y/o F with hx of HTN, previous adb surgeries, and SBO in 2002, admitted for SBO after developing abd pain. given continued bilious output through NG tube, no passage of gas or BM (despite dulcolax suppository, and miralax via NGT added 08/07), and hypoactive BS, pt has opted for surgical intervention for SBO KUB from 08/07-- shows persistent SBO Pt's K is low at 3.4-- will increase 10MEq to 20Meq of KCl supp in IV fluid; low K due to lack of eating and removing of stomach acid creating alkolosis and shift of K into cells. Calcium low at 7.7 (was 8.3 on 08/07) pt has no other features concerning for complicated SBO (ie no fever, tachycardic, periotoneal signs), but SBO has failed to resolve over past 3 days with NGT decompression. Subjective 82 y/o F with hx of HTN, previous adb surgeries, and SBO in 2002, admitted for SBO after developing abd pain. surgery recommending exploratory laparotomy for SBO and pt agrees. pt continued to have significant bilious output for NG tube abd soreness Not passing gas, no BM pt is ambulating no f/c, SOB, or chest pain GENERAL, CONSTITUTIONAL- No Fever, Chills HEART, CARDIOVASCULAR- No Chest pain or pressure, Arrhythmia or palpitations, Shortness of breath, Peripheral edema, RESPIRATORY- No Cough, Shortness of breath, Wheezing GASTROINTESTINAL- abd soreness, no Heartburn, Bloody stool GENITOURINARY- No Frequent urination, Urgency Physical Exam Vital Signs (Past 24 Hours): Last Vital Signs Temp 36.5 C 08/08/18 12:00 Pulse 90 08/08/18 12:00 Resp 20 08/08/18 12:00 BP 146/90 H 08/08/18 12:00 Pulse Ox 96 08/08/18 12:00 Physical Exam: GENERAL: WD/WN, alter, cooperative, no acute distress HEENT: Mouth: Moist mucous membranes, Nervous System: Mental status: Alert and oriented x 3, good concentration. Motor: Strength 5/5 in all muscle groups. Chest/Lung: Clear to auscultation bilaterally. No rales, rhonchi, wheezing, or rubs. Heart: Regular rate and rhythm. Normal S1, S2. No murmurs, rubs, or gallops. Abdomen: distended, tender in LUQ and LLQ, hypoactive BS present, tympanic No clubbing, cyanosis, or edema.
--- NOTE | 2018-08-08 15:02 | Anesthesiology Consultation ---
Date of Service August 08, 2018 Assessment & Plan Consults Requested cardiac Cardiology consult 08/08/2018: (3) Cardiomyopathy: She had mild left ventricular dysfunction identified at her last echo, ejection fraction 50-55% but the ventricle was felt to be globally hypokinetic. Her valve disease is not severe enough to explain it at the time, and she does not have symptoms to suggest progression. However going into surgery I think it would be worthwhile to see what her left ventricular function is, I cannot imagine that would keep us from allowing surgery but since we do not know a cause of her left ventricular dysfunction I think it would be worthwhile to make sure it has not worsened. I will arrange that. NPO Date Last Intake of Fluids: 08/07/18 Time Last Intake of Fluids: 23:59 Date Last Intake of Solids: 08/07/18 Time Last Intake of Solids: 23:59 History Surgery Operation Date: 08/08/18 07:00 Proposed Procedures p Exploratory Laparotomy with Possible Bowel Resection and possible Ostomy - Oskar Crowell MD Height/Weight Height: 5 ft 3 in Weight: 78.8 kg Allergies Allergy/AdvReac Type Severity Reaction Status Date / Time Penicillins Allergy Unknown HIVES Verified 08/04/18 11:33 Cipro AdvReac Severe "MADE ME Unverified 03/20/17 02:09 DEATHLY ILL" ciprofloxacin AdvReac Severe "MADE ME Unverified 08/04/18 11:33 DEATHLY ILL" metronidazole AdvReac Severe "MADE ME Unverified 08/04/18 11:33 DEATHLY ILL" Medications Home Medications Medication Instructions Recorded Confirmed Last Taken acetaminophen [Tylenol Extra 500 mg PO Q6H PRN 08/04/18 08/04/18 08/04/18 07:00 Strength] calcium carbonate-vitamin D3 1 tab PO PM 08/04/18 08/04/18 08/03/18 [Caltrate 600 + D] cholecalciferol (vitamin D3) 2,000 unit PO QAM 08/04/18 08/04/18 08/03/18 [Vitamin D3] felodipine 10 mg PO QAM 08/04/18 08/04/18 08/04/18 indapamide 1.25 mg PO QAM 08/04/18 08/04/18 08/04/18 irbesartan 300 mg PO QAM 08/04/18 08/04/18 08/04/18 metoprolol tartrate 100 mg PO BID 08/04/18 08/04/18 08/04/18 trazodone 50 mg PO HS 08/04/18 08/04/18 08/03/18 Active Medications Generic Name Dose Route Start Last Admin Trade Name Freq PRN Reason Stop Dose Admin Diclofenac Sodium 1 appln 08/05/18 13:00 08/08/18 13:08 Voltaren 1% Top EXT 09/04/18 12:59 Not Given QID JJ Enoxaparin Sodium 40 mg 08/06/18 09:00 08/08/18 09:53 Lovenox SQ 09/05/18 08:59 Not Given QAM JJ Felodipine 10 mg 08/05/18 11:30 08/07/18 08:44 Plendil PO 09/04/18 11:29 10 mg QAM JJ Administration Hydralazine HCl 5 mg 08/07/18 08:45 08/08/18 08:18 Hydralazine Hcl IV 09/06/18 08:44 5 mg Q8H JJ Administration Acetaminophen 1,000 mg in 100 mls @ 400 mls/hr 08/04/18 15:14 08/08/18 01:42 Ofirmev IV 09/03/18 15:13 Infused Q8H PRN Infusion Pain Potassium Chloride 20 meq/ 1,010 mls @ 100 mls/hr 08/07/18 09:00 08/08/18 05:09 Dextrose/Sodium Chloride IV 08/08/18 15:17 100 mls/hr .Q10H6M JJ Administration Metoprolol Tartrate 100 mg 08/04/18 21:00 08/08/18 09:44 Lopressor PO 09/03/18 20:59 100 mg BID JJ Administration Morphine Sulfate 1 mg 08/04/18 21:51 08/04/18 23:37 Morphine Sulfate IV 08/18/18 15:13 1 mg Q4H PRN Administration Pain Ondansetron HCl 4 mg 08/04/18 15:14 08/05/18 14:44 Zofran IV 09/03/18 15:13 4 mg Q6H PRN Administration Nausea Phenol 1 sprays 08/06/18 17:29 08/06/18 21:08 Chloraseptic 1.4% [place] 09/05/18 17:28 1 sprays Q2H PRN Administration SORE THROAT PAIN Trazodone HCl 50 mg 08/04/18 21:00 08/07/18 22:14 Desyrel PO 09/03/18 20:59 50 mg HS JJ Administration Beta Bianca Beta Bianca Taken Within 24 Hours: Yes Past Medical History Medical History Cardiomyopathy Valvular heart disease Hypokalemia Hypomagnesemia Chronic kidney disease, stage 3a Hyponatremia Small bowel obstruction (Acute) Fibromyalgia HTN (hypertension) (Chronic) Diverticulitis (Acute) Past Family History Family History Other No pertinent family history Past Surgical History Surgical History History of appendectomy (Resolved) H/O exploratory laparotomy SBO in . History of section x2 History of laminectomy History of laparoscopy to remove fibroid tumor in uterus Social History Smoking Status: Never smoker Do You Dip or Chew Tobacco: No Smoking End Date: 1964 only Hx Alcohol Use: No Alcohol Intake Frequency Comment: on holiday Hx Substance Use: No Physical Exam Vital Signs Last Vital Signs Temp 36.7 C 08/08/18 15:02 Pulse 95 H 08/08/18 15:02 Resp 16 08/08/18 15:02 BP 179/90 H 08/08/18 15:02 Pulse Ox 95 08/08/18 15:02 Testing Electrocardiogram Date: 08/04/18 Findings: + NSR @ (87) Normal sinus rhythm Possible Left atrial enlargement Left axis deviation Left ventricular hypertrophy Abnormal ECG When compared with ECG of 19-JAN-2018 18:48, Premature ventricular complexes are no longer Present Echocardiogram echocardiogram performed on January 20, 2018, this showed normal left ventricular size with low normal systolic function with what was felt to be borderline global hypokinesis, mild left ventricular hypertrophy, mild aortic sclerosis without stenosis, mild aortic insufficiency, mild to moderate mitral regurgi tation and a mildly dilated a sending aorta. Laboratory Results 08/08/18 03:54 08/08/18 03:54 PT 10.0 Seconds (9.0-12.0) 08/04/18 10:45 INR 1.0 (0.9-1.1) 08/04/18 10:45 Urine Color Yellow 08/04/18 10:40 Urine Appearance Clear (Clear) 08/04/18 10:40 Urine pH 8.0 (4.5-7.5) H 08/04/18 10:40 Ur Specific [place] 1.010 (1.000-1.030) 08/04/18 10:40 Urine Protein 2+ (Negative) H 08/04/18 10:40 Urine Glucose (UA) Negative (Negative) 08/04/18 10:40 Urine Ketones Negative (Negative) 08/04/18 10:40 Urine Nitrite Negative (Negative) 08/04/18 10:40 Ur Leukocyte Esterase Negative (Negative) 08/04/18 10:40 Urine WBC (Auto) 0 /hpf (0-5) 08/04/18 10:40 Urine RBC (Auto) 5-10 /hpf (0-4) H 08/04/18 10:40 U Hyaline Cast (Auto) 0 /lpf (0-5) 08/04/18 10:40 U Epithel Cells (Auto) 0-5 /lpf (0-5) 08/04/18 10:40 Urine Bacteria (Auto) Negative (Negative) 08/04/18 10:40
[2018-08-08] MEDS ORDERED: fentaNYL citrate 100 MCG/2 ML VIAL ONE ×3 (15:35→17:21)
[2018-08-08] MEDS ORDERED: ROCURONIUM BROMIDE 10 MG/ML 5 ML VIAL ONE (15:35)
[2018-08-08] MEDS ORDERED: PROPOFOL IV EMULSION 10 MG/ML 20 ML VIAL IV ONE (15:35)
[2018-08-08] MEDS ORDERED: ATROPINE SULFATE 0.1 MG/ML 10ML SYR IV PRN (15:49)
[2018-08-08] MEDS ORDERED: ePHEDrine sulfate 50 MG/ML AMP IV PRN (15:49)
[2018-08-08] MEDS ORDERED: ONDANSETRON INJ 2 MG/ML 2 ML VIAL IV PRN (15:49)
--- NOTE | 2018-08-08 16:10 | History & Physical Bridge Note ---
Date of Service August 08, 2018 History & Physical Bridge Note I have examined the patient, reviewed the History & Physical and in the interval since the performance of the History & Physical I have noted the following changes of clinical significance: no changes noted
[2018-08-08] MEDS ORDERED: CLINDAMYCIN 600 MG/54 ML D5W IV ONE (16:11)
[2018-08-08] MEDS ORDERED: BUPIVACAINE 0.5 % 5 MG/1 ML MPF 30ML VIAL ONE (16:43)
[2018-08-08] MEDS ORDERED: BACITRACIN OINT 15 GM TUBE ONE (16:43)
[2018-08-08] MEDS ORDERED: LIDOCAINE HCL 1% 20 ML VIAL ONE (16:43)
[2018-08-08] MEDS ORDERED: NEOSTIGMINE METHYLSULFATE 5 MG/5 ML SYR ONE (17:53)
[2018-08-08] MEDS ORDERED: GLYCOPYRROLATE 0.2 MG/ML VIAL ONE (17:53)
[2018-08-08] MEDS ORDERED: DEXAMETHASONE SOD INJ 4 MG/ML VIAL ONE (17:53)
[2018-08-08] MEDS ORDERED: ONDANSETRON INJ 2 MG/ML 2 ML VIAL ONE (17:53)
--- NOTE | 2018-08-08 18:06 | Post Operative Brief Note ---
Immediate Post Op Note v1 Date of Surgery August 08, 2018 Pre & Post Diagnosis Operation Date: 08/08/18 07:00 Pre-Op Diagnosis: Small bowel obsturction Post-Op Diagnosis: Small bowel obsturction Procedure Operation Date: 08/08/18 07:00 Actual Procedures p Exploratory Laparotomy, Lysis of Adhesions - Oskar Crowell MD Surgeon Oskar Crowell MD [employer] rn neurosurgical Estimated Blood Loss 10 Findings Consistent with Post-Op Diagnosis multiple scar caused SBO Fluids 900ml Specimens none Drains Wolfe Catheter (16 bolivian ) Anesthesia Type General Complications none Disposition Accompanied Patient To Recovery: Yes Disposition: Recovery Room Overlapping Procedure I was immediately available: during the entire case.
[2018-08-08] MEDS ORDERED: LABETALOL HCL IV 5 MG/ML 20ML IV ONE (18:22)
[2018-08-08] MEDS: fentaNYL citrate 100 MCG/2 ML VIAL IV PRN ×4 (18:27→18:57)
[2018-08-08] MEDS ORDERED: LABETALOL HCL IV 5 MG/ML 20ML IV PRN (18:41)
[2018-08-08] MEDS ORDERED: HydrALAZINE HCL 20 MG/ML VIAL IV STA (18:50)
[2018-08-08] MEDS ORDERED: HYDROmorphone INJ 1 MG/ML SYRINGE ONE (19:08)
[2018-08-08] MEDS: HYDROmorphone INJ 1 MG/ML SYRINGE IV PRN ×2 (19:20→19:29)
[2018-08-08] MEDS ORDERED: ACETAMINOPHEN 500 MG TAB PO PRN (20:01)
--- NOTE | 2018-08-08 20:04 | Anesthesiology Progress Note ---
Date of Service August 08, 2018 Anesthesia Post Procedure Vital Signs Vital Signs: Temp Pulse Pulse Resp BP BP Pulse Ox 08/08/18 19:45 87 16 160/80 H 98 08/08/18 19:35 36.8 C 91 H 13 162/79 H 98 08/08/18 19:25 93 H 13 166/85 H 98 08/08/18 19:15 93 H 14 165/82 H 98 08/08/18 19:05 90 12 170/83 H 98 08/08/18 18:55 90 12 188/97 H 100 08/08/18 18:45 89 12 193/97 H 100 08/08/18 18:35 90 18 196/101 H 100 08/08/18 18:25 90 12 182/93 H 100 08/08/18 18:17 36.3 C L 88 15 198/99 H 99 08/08/18 15:02 36.7 C 95 H 16 191/96 H 179/90 H 95 08/08/18 12:00 36.5 C 90 20 146/90 H 96 08/08/18 10:31 153/88 H 08/08/18 07:55 36.9 C 90 18 176/86 H 92 08/08/18 00:23 157/83 H 08/07/18 23:25 36.9 C 81 16 173/82 H 93 08/07/18 21:24 96 H 160/91 H Pain Intensity Abdomen: Pain Intensity: 5 Notes Mental Status: alert / awake / arousable and participated in evaluation Patient Amnestic to Procedure: Yes Nausea / Vomiting: adequately controlled Pain: adequately controlled Airway Patency, RR, SpO2: stable & adequate BP & HR: stable & adequate Hydration State: stable & adequate Anesthetic Complications: no major complications apparent and Pt Satisfied with anesthetic care
[2018-08-08] MEDS: HYDROmorphone INJ 0.5 MG/0.5 ML SYR IV PRN (20:32)
[2018-08-08] MEDS ORDERED: CALCIUM 600MG + VIT D 400 IU TAB PO SCH (21:00)
--- NOTE | 2018-08-08 21:41 | Hospitalist Progress Note ---
Date of Service August 08, 2018 Assessment & Plan (1) Small bowel obstruction: failed conservative management to OR today for ex lap, release of bowel, lysis of adhesions, etc appears optimized from cardiopulmonary perspective continue beta ne through perioperative period as this is chronic med (2) HTN (hypertension): cont beta ne cont IV hydralazine holding other home meds (3) Osteoarthritis of knees, bilateral: Continue Voltaren gel. (4) Hyponatremia: Resolved (5) Hypomagnesemia: Resolved (6) Chronic kidney disease, stage 3a: Creatinine continues to remain stable. bmp AM tomorrow (7) Hypokalemia: KCL rider IV x 1 cont KCL in maintenance fluids as well BMP am (8) DVT prophylaxis: hold lovenox in anticipation of surgery later today Subjective no spontanous passage of flatus nearly 3 L of bilious drainage via NG tube since yesterday denies abd pain seen by gen surg this AM -- to OR today for ex lap she understands need for surgery Constitutional: no fever Respiratory: no dyspnea and no dyspnea on exertion Cardiovascular: no chest pain Physical Exam Vital Signs (Past 24 Hours): Last Vital Signs Temp 36.8 C 08/08/18 21:00 Pulse 91 H 08/08/18 21:00 Resp 16 08/08/18 21:00 BP 133/75 08/08/18 21:00 Pulse Ox 96 08/08/18 21:00 Constitutional: well developed, well nourished and average body habitus; no acute distress, not ill appearing and no altered mental status ENMT: external ear and nose normal, oropharynx normal Respiratory: normal respiratory effort, lungs clear to auscultation Cardiovascular: RRR, no murmur, no edema Rate/Rhythm: regular rate and regular rhythm Heart Sounds: normal S1 and normal S2; no murmur Vessels: posterior tibial pulses present and dorsalis pedis pulses present; no JVD Gastrointestinal (Abdomen): Inspection/Auscultation: + abdomen distended (no significant change from yesterday) and normal bowel sounds Percussion/Palpation: abdomen nontender, no guarding, abdomen not rigid and no hepatosplenomegaly Psychiatric: A+Ox3, euthymic affect Results & Data Laboratory Results Laboratory Results - last 24 hr 08/08/18 08/08/18 08/08/18 03:54 03:54 16:06 WBC 8.44 RBC 4.00 L Hgb 12.4 Hct 37.2 MCV 93.0 MCH 31.0 MCHC 33.3 RDW Std Deviation 47.3 H RDW Coeff of Mari 13.8 Plt Count 254 MPV 9.0 Immature Gran % (Auto) 0.1 Neut % (Auto) 63.0 Lymph % (Auto) 19.7 [place] % (Auto) 12.9 Eos % (Auto) 4.1 Baso % (Auto) 0.2 Immature Gran # (Auto) 0.01 Neut # (Auto) 5.31 Lymph # (Auto) 1.66 [place] # (Auto) 1.09 H Eos # (Auto) 0.35 Baso # (Auto) 0.02 Sodium 139 Potassium 3.4 L Chloride 106 Carbon Dioxide 29 Anion Gap 4.0 BUN 13 Creatinine 0.74 Est Cr Clr Drug Dosing 57.3 Est GFR ( Amer) 86.8 Est GFR (Non-Af Amer) 74.9 BUN/Creatinine Ratio 17.5 Glucose 119 H Calcium 7.7 L Blood Type O Negative Antibody Screen POSITIVE A (1) Osteoarthritis of knees, bilateral Osteoarthritis type: primary Qualified Code(s): M17.0 - Bilateral primary osteoarthritis of knee (2) HTN (hypertension) Hypertension type: essential hypertension Qualified Code(s): I10 - Essential (primary) hypertension
[2018-08-08] MEDS: D5NSS + 20MEQ KCL 20 MEQ/1,000 ML BAG IV SCH (21:49)
[2018-08-08] MEDS: TRAZODONE HCL 50 MG TAB PO SCH (22:16)
[2018-08-09] MEDS: HydrALAZINE HCL 20 MG/ML VIAL IV SCH ×3 (00:01→16:07)
[2018-08-09] MEDS: ACETAMINOPHEN 1,000 MG/100 ML VIAL IV PRN ×2 (00:15→09:35)
--- NOTE | 2018-08-09 01:32 | Operative Report ---
DATE OF OPERATION: 08/08/2018 PREOPERATIVE DIAGNOSIS: Small bowel obstruction. POSTOPERATIVE DIAGNOSIS: Small bowel obstruction. OPERATION: Exploratory laparotomy, lysis of adhesions. SURGEON: Oskar Crowell MD ANESTHESIA: General. ESTIMATED BLOOD LOSS: About 10 mL FINDINGS: Multiple scar and causes small bowel obstruction. COMPLICATIONS: None. INDICATIONS FOR THE PROCEDURE: This is an 82 years old female who was admitted to hospital for bowel obstruction. We did a conservative treatment over the 3 days, but the patient has still no bowel function recovered. At this moment, I recommended to do exploratory laparotomy, possible bowel resection, possible stoma. I did talk to the patient about the benefit and risk, alternate procedure. I indicated the risks may include but not limited such as bleeding, infection, injury to bowel, myocardial infarction, DVT, stroke, even . The patient understands. She signed informed consent and I answered all questions. DETAILS OF PROCEDURE: We brought the patient to the OR, put the patient in the supine position. The patient received SCD on bilateral legs to prevent DVT. Also, patient received 600 mg clindamycin IV for prophylactic antibiotic. The patient received general anesthesia without difficulty. Also, patient received Wolfe catheter insertion. Then, the patient's abdomen was properly draped in routine sterile fashion. After a timeout, I made a midline incision about 10 cm long getting into the abdomen without difficulty. We took down some scar and we found the patient had multiple scar inside the abdomen and there are couple of the significant scar caused the small bowel twisting obstruction. Once we removed the scar and the distal decompressed small bowel is patent again the fluid through the small bowel and the small bowel content went to the distal small bowel without difficulty. Once we released all of the scar, hemostasis was obtained. Then I used #1 PDS to close the fascial layer by continue running, closed the subcutaneous layer by using 2-0 Vicryl continuous running, closed skin by using staple. We put the dressing on. The patient tolerated the procedure well. All the instrument, needle and sponge count were correct x2 at the end of case. The patient was transferred to recovery room in stable condition. After procedure, I did talk to the patient and family member about the OR finding and procedure we did, they understood. I attest to the content of the Intraoperative Record and any orders documented therein. Any exceptions are noted below. JOVANA
[2018-08-09] MEDS: HYDROmorphone INJ 0.5 MG/0.5 ML SYR IV PRN ×3 (04:28→17:14)
[2018-08-09] MEDS ORDERED: CLINDAMYCIN 600 MG/54 ML BAG IV SCH (06:00)
[2018-08-09] MEDS: D5NSS + 20MEQ KCL 20 MEQ/1,000 ML BAG IV SCH ×3 (08:16→19:46)
[2018-08-09] MEDS: FELODIPINE 5 MG TABCR PO SCH (08:25)
[2018-08-09] MEDS: INDAPAMIDE 1.25 MG TAB PO SCH (08:25)
[2018-08-09] MEDS: METOPROLOL TARTRATE 100 MG TAB PO SCH ×2 (08:25→19:47)
[2018-08-09] MEDS: ENOXAPARIN INJ 40 MG/0.4 ML SYR SQ SCH (08:25)
[2018-08-09] MEDS: DICLOFENAC SOD 1% GEL 100 GM TUBE EXT SCH ×4 (08:26→19:54)
[2018-08-09] MEDS ORDERED: CHOLECALCIFEROL 1,000 UNITS TAB PO SCH (09:00)
[2018-08-09] MEDS ORDERED: FELODIPINE 5 MG TABCR PO SCH (09:00)
[2018-08-09 09:40] LABS: Basophils # (auto) 0.01 K/uL (0-0.2); Basophils % (auto) 0.1 %; Hemoglobin 12.9 g/dL (12.0-16.0); Immature Granulocytes # (auto) 0.04 K/uL (0.00-0.02); Immature Granulocytes % (auto) 0.3 %; Lymphocytes # (auto) 1.54 K/uL (1.2-3.4); Lymphocytes % (auto) 12.4 %; Mean Corpuscular Hgb Conc 33.1 g/dL (32-36); Mean Corpuscular Volume 93.1 fL (80-100); Mean Platelet Volume 9.1 fL (7.4-10.4); Monocytes # (auto) 1.64 K/uL (0.11-0.59); Monocytes % (auto) 13.3 %; Neutrophils # (auto) 9.14 K/uL (1.4-6.5); Neutrophils % (auto) 73.9 %; Platelet Count 285 K/uL (130-400); RDW Coefficient of Variation 14.3 % (11.5-14.5); RDW Standard Deviation 48.8 fL (36.4-46.3); Red Blood Count 4.19 M/uL (4.2-5.4); White Blood Count 12.37 K/uL (4.8-10.8)
[2018-08-09 09:55] LABS: BUN Creatinine Ratio 18.9 (10-20); Creatinine Clr Calc Pharmacy 50.4 ml/min; Est GFR (African American) 74.5; Est GFR (Non-African American) 64.3; Potassium 3.7 mmol/L (3.5-5.1)
[2018-08-09] MEDS ORDERED: POLYETHYLENE (MIRALAX) 17 GM PACK NG ONE (10:00)
[2018-08-09] MEDS ORDERED: POTASSIUM CHLORIDE PWD 20 MEQ PACK NG ONE (10:15)
--- NOTE | 2018-08-09 16:03 | Surgery Progress Note ---
Date of Service August 09, 2018 Assessment & Plan (1) Small bowel obstruction: POD # 1 s/p ex lap lysis of adhesions - afebrile, mild tachycardia - HTN - NGT with 100 cc output jet wiper - mild to moderate post op pain, controlled - no nausea or vomiting - urine output low , 125 cc in jet wiper, creatinine 0.84 Plan: continue IV Tylenol and IV Dilaudid as needed for pain continue IV fluids, consider increasing to 125 mls/hr given low urine output Continue Wolfe catheter today for I/O continue NGT to LIS Continue NPO, may ahve ice chips and mouth swabs Continue abdominal binder OOB to chair and ambulate with assistance SCDs and Lovenox for DVT prophylaxis HTN management with IV Hydralazine PT/OT Consults repeat am labs One time dose of Miralax via NGT one time dose of 20 mEq of KCL via NGT continue medical management Dr. Crowell has seen and examined pt, agrees with above Subjective feeling okay no return of bowel function yet, no flatus, no urge to pass gas abdominal pain controlled, had Dilaudid x 2 last night, only Tylenol today no nausea or vomiting no shortness of breath or chest pain Physical Exam Vital Signs (Past 24 Hours): Last Vital Signs Temp 36.7 C 08/09/18 15:54 Pulse 113 H 08/09/18 15:54 Resp 16 08/09/18 15:54 BP 164/81 H 08/09/18 15:54 Pulse Ox 92 08/09/18 15:54 Constitutional: WD/WN, vitals as above no acute distress Respiratory: no respiratory distress Gastrointestinal (Abdomen): Inspection/Auscultation: + abdomen distended (Mild) and normal bowel sounds Percussion/Palpation: + abdomen tender (at incision site appropriate post op) and abdomen soft; no guarding and abdomen not rigid NGT with dark bilious output Skin: no rashes, warm and dry Psychiatric: A+Ox3, euthymic affect Results & Data Laboratory Results 08/09/18 08/09/18 08/08/18 Range/Units 09:21 09:21 16:06 WBC 12.37 H (4.8-10.8) K/uL RBC 4.19 L (4.2-5.4) M/uL Hgb 12.9 (12.0-16.0) g/dL Hct 39.0 (37-47) % MCV 93.1 (80-100) fL MCH 30.8 (25-34) pg MCHC 33.1 (32-36) g/dL RDW Std Deviation 48.8 H (36.4-46.3) fL RDW Coeff of Mari 14.3 (11.5-14.5) % Plt Count 285 (130-400) K/uL MPV 9.1 (7.4-10.4) fL Immature Gran % (Auto) 0.3 % Neut % (Auto) 73.9 % Lymph % (Auto) 12.4 % [place] % (Auto) 13.3 % Eos % (Auto) 0.0 % Baso % (Auto) 0.1 % Immature Gran # (Auto) 0.04 H (0.00-0.02) K/uL Neut # (Auto) 9.14 H (1.4-6.5) K/uL Lymph # (Auto) 1.54 (1.2-3.4) K/uL [place] # (Auto) 1.64 H (0.11-0.59) K/uL Eos # (Auto) 0.00 (0-0.5) K/uL Baso # (Auto) 0.01 (0-0.2) K/uL Sodium 144 (136-145) mmol/L Potassium 3.7 (3.5-5.1) mmol/L Chloride 111 H (98-107) mmol/L Carbon Dioxide 25 (21-32) mmol/L Anion Gap 8.0 (3-11) BUN 16 (7-18) mg/dl Creatinine 0.84 (0.6-1.2) mg/dl Est Cr Clr Drug Dosing 50.4 ml/min Est GFR ( Amer) 74.5 Est GFR (Non-Af Amer) 64.3 BUN/Creatinine Ratio 18.9 (10-20) Glucose 131 H (70-99) mg/dl Calcium 8.0 L (8.5-10.1) mg/dl Magnesium 2.0 (1.8-2.4) mg/dl Blood Type O Negative Antibody Screen POSITIVE A Antibody Identification Anti-D Antigen Identification E Antigen - NEGATIVE Crossmatch See Detail
[2018-08-09] MEDS ORDERED: SODIUM CHLORIDE 0.9% 1000ML 250 ML IV ONE (18:26)
--- NOTE | 2018-08-09 20:43 | Hospitalist Progress Note ---
Date of Service August 09, 2018 Assessment & Plan (1) Small bowel obstruction: failed conservative management POD #1 s/p ex lap with lysis of adhesions defer management to gen surg NG tube, IVF, NPO, pain control, etc (2) Oliguria: does NOT appear volume overloaded on exam appears mildly volume contracted give small bolus of fluid now then increase basal fluid rate serial labs follow UOP (3) HTN (hypertension): cont beta ne cont IV hydralazine holding other home meds adjust meds as needed (4) Osteoarthritis of knees, bilateral: Continue Voltaren gel. (5) Hyponatremia: Resolved (6) Hypomagnesemia: Resolved (7) Hypokalemia: resolved (8) Chronic kidney disease, stage 3a: Creatinine continues to remain stable even despite the oliguria. bmp AM tomorrow (9) Tachycardia: EKG w/ sinus tach no symptoms from this doubt PE but still in differential may simply be reflective of volume contraction pain could be contributing follow carefully (10) DVT prophylaxis: lovenox daughter updated at bedside Subjective pt w/o complaints except for abdominal pain no flatus NG draining bile low UOP through the day has had notable tachycardia on vital checks but NO chest pain or dyspnea or palpitations daughter at bedside Constitutional: no fever and no chills Respiratory: no cough and no dyspnea Cardiovascular: no chest pain and no paroxysmal nocturnal dyspnea Gastrointestinal: + abdominal pain; no nausea Physical Exam Vital Signs (Past 24 Hours): Last Vital Signs Temp 36.7 C 08/09/18 15:54 Pulse 113 H 08/09/18 15:54 Resp 16 08/09/18 15:54 BP 164/81 H 08/09/18 15:54 Pulse Ox 92 08/09/18 15:54 Constitutional: well developed, well nourished and average body habitus; no acute distress, not ill appearing and no altered mental status ENMT: external ear and nose normal, oropharynx normal NG tube in place Respiratory: normal respiratory effort, lungs clear to auscultation Cardiovascular: Rate/Rhythm: regular rhythm and + tachycardic Heart Sounds: normal S1 and normal S2; no murmur Vessels: posterior tibial pulses present and dorsalis pedis pulses present; no JVD Gastrointestinal (Abdomen): Inspection/Auscultation: + abdomen distended (no significant change from yesterday) and normal bowel sounds Per cussion/Palpation: + abdomen tender; no guarding, abdomen not rigid and no hepatosplenomegaly Psychiatric: A+Ox3, euthymic affect Results & Data Laboratory Results cbc acceptable creatinine acceptable EKG - my read - sinus tach, LVH by voltage criteria, no ST changes (1) Osteoarthritis of knees, bilateral Osteoarthritis type: primary Qualified Code(s): M17.0 - Bilateral primary osteoarthritis of knee (2) HTN (hypertension) Hypertension type: essential hypertension Qualified Code(s): I10 - Essential (primary) hypertension
[2018-08-10] MEDS: HYDROmorphone INJ 0.5 MG/0.5 ML SYR IV PRN ×4 (00:14→22:47)
[2018-08-10] MEDS: HydrALAZINE HCL 20 MG/ML VIAL IV SCH ×3 (00:14→22:16)
[2018-08-10 03:51] LABS: Hematocrit (blood only) 36.4 % (37-47); Hemoglobin 11.9 g/dL (12.0-16.0); Mean Corpuscular Hgb Conc 32.7 g/dL (32-36); Mean Corpuscular Volume 93.6 fL (80-100); Mean Platelet Volume 8.7 fL (7.4-10.4); Platelet Count 264 K/uL (130-400); RDW Coefficient of Variation 14.7 % (11.5-14.5); RDW Standard Deviation 50.2 fL (36.4-46.3); Red Blood Count 3.89 M/uL (4.2-5.4); White Blood Count 10.45 K/uL (4.8-10.8)
[2018-08-10] MEDS: D5NSS + 20MEQ KCL 20 MEQ/1,000 ML BAG IV SCH (03:53)
[2018-08-10 04:10] LABS: BUN Creatinine Ratio 18.6 (10-20); Calcium 7.5 mg/dl (8.5-10.1); Creatinine Clr Calc Pharmacy 50.4 ml/min; Est GFR (African American) 74.5; Est GFR (Non-African American) 64.3; Potassium 3.9 mmol/L (3.5-5.1)
[2018-08-10] MEDS: ACETAMINOPHEN 1,000 MG/100 ML VIAL IV PRN ×2 (04:47→18:18)
[2018-08-10 04:51] LABS: Basophils # (auto) 0.03 K/uL (0-0.2); Basophils % (auto) 0.3 %; Eosinophils % (auto) 1.9 %; Immature Granulocytes # (auto) 0.05 K/uL (0.00-0.02); Immature Granulocytes % (auto) 0.5 %; Lymphocytes # (auto) 2.32 K/uL (1.2-3.4); Lymphocytes % (auto) 22.2 %; Monocytes # (auto) 1.59 K/uL (0.11-0.59); Monocytes % (auto) 15.2 %; Neutrophils # (auto) 6.26 K/uL (1.4-6.5); Neutrophils % (auto) 59.9 %
[2018-08-10] MEDS: METOPROLOL TARTRATE 100 MG TAB PO SCH ×2 (07:54→20:10)
[2018-08-10] MEDS: DICLOFENAC SOD 1% GEL 100 GM TUBE EXT SCH ×4 (08:02→20:10)
[2018-08-10] MEDS: ENOXAPARIN INJ 40 MG/0.4 ML SYR SQ SCH (08:02)
[2018-08-10] MEDS ORDERED: D5W AND 1/2NSS + 20MEQ KCL 20 MEQ/1,000 ML BAG IV SCH (09:45)
--- NOTE | 2018-08-10 12:13 | Surgery Progress Note ---
Date of Service August 10, 2018 Assessment & Plan (1) Small bowel obstruction: POD # 2 s/p ex lap, Lysis of adhesions -vitals stable, afebrile, no leukcoytosis - abdominal pain moderate but controlled - no return of bowel function yet - Urinary output adequate after fluid bolus, creatinine stable Plan: Dulcolax suppository now Miralax via NGT Continue pain management as needed Continue IV fluids Discontinue Wolfe Consider PPN, will talk with hospitalist group OOB to chair and ambulate SCDs and Lovenox for DVT prophylaxis repeat am labs while NPO Dr. Whitaker covering this weekend Dr. Crowell has seen patient , agrees with above Subjective still no flatus or bowel movement yet abdominal pain controlled no nausea or vomiting +hungry + belching walked in room and outside of room with PT this morning no shortness of breath or chest pain Physical Exam Vital Signs (Past 24 Hours): Last Vital Signs Temp 36.8 C 08/10/18 09:08 Pulse 101 H 08/10/18 11:38 Resp 18 08/10/18 09:08 BP 169/93 H 08/10/18 11:38 Pulse Ox 93 08/10/18 09:08 Constitutional: WD/WN, vitals as above no acute distress and not ill appearing Respiratory: no respiratory distress Gastrointestinal (Abdomen): Inspection/Auscultation: abdomen not distended Percussion/Palpation: + abdomen tender (at incision site and RLQ appropriate post op) and abdomen soft; no guarding and abdomen not rigid NGT with dark bilious output Skin: no rashes, warm and dry Psychiatric: A+Ox3, euthymic affect Results & Data Laboratory Results 08/10/18 08/10/18 Range/Units 03:39 03:39 WBC 10.45 (4.8-10.8) K/uL RBC 3.89 L (4.2-5.4) M/uL Hgb 11.9 L (12.0-16.0) g/dL Hct 36.4 L (37-47) % MCV 93.6 (80-100) fL MCH 30.6 (25-34) pg MCHC 32.7 (32-36) g/dL RDW Std Deviation 50.2 H (36.4-46.3) fL RDW Coeff of Mari 14.7 H (11.5-14.5) % Plt Count 264 (130-400) K/uL MPV 8.7 (7.4-10.4) fL Immature Gran % (Auto) 0.5 % Neut % (Auto) 59.9 % Lymph % (Auto) 22.2 % [place] % (Auto) 15.2 % Eos % (Auto) 1.9 % Baso % (Auto) 0.3 % Immature Gran # (Auto) 0.05 H (0.00-0.02) K/uL Neut # (Auto) 6.26 (1.4-6.5) K/uL Lymph # (Auto) 2.32 (1.2-3.4) K/uL [place] # (Auto) 1.59 H (0.11-0.59) K/uL Eos # (Auto) 0.20 (0-0.5) K/uL Baso # (Auto) 0.03 (0-0.2) K/uL Sodium 145 (136-145) mmol/L Potassium 3.9 (3.5-5.1) mmol/L Chloride 116 H (98-107) mmol/L Carbon Dioxide 26 (21-32) mmol/L Anion Gap 3.0 (3-11) BUN 16 (7-18) mg/dl Creatinine 0.84 (0.6-1.2) mg/dl Est Cr Clr Drug Dosing 50.4 ml/min Est GFR ( Amer) 74.5 Est GFR (Non-Af Amer) 64.3 BUN/Creatinine Ratio 18.6 (10-20) Glucose 115 H (70-99) mg/dl Calcium 7.5 L (8.5-10.1) mg/dl
[2018-08-10] MEDS ORDERED: BISACODYL 10 MG SUPP PR STA (12:20)
[2018-08-10] MEDS ORDERED: POLYETHYLENE (MIRALAX) 17 GM PACK NG ONE (12:21)
[2018-08-10] MEDS ORDERED: TPN/PPN CONSULT PHARMACY PRN (12:53)
[2018-08-10 13:59] LABS: Phosphorus 1.7 mg/dl (2.5-4.9)
[2018-08-10] MEDS ORDERED: HydrALAZINE HCL 20 MG/ML VIAL IV ONE ×2 (14:12→17:30)
[2018-08-10] MEDS ORDERED: TPN/PPN CONSULT PHARMACY STA (14:15)
[2018-08-10] MEDS ORDERED: FELODIPINE 5 MG TABCR PO STA (14:20)
--- NOTE | 2018-08-10 14:23 | Pharmacy Report ---
Pharmacy PN Initial Consult - Date of Service August 10, 2018 - Scope Pharmacy has been consulted to manage parenteral nutrition orders and order appropriate labs. As part of the Nutrition Support Team guidelines, pharmacy will work in conjunction with dietary when determining the patients caloric needs. - Subjective The patient is a 82 year old F admitted on 08/04/18 13:54 for SBO. Patient is to receive parenteral nutrition for [INDICATION]. Pertinent PMH: - Objective Height: 5 ft 3 in Weight: 78.8 kg Diet: NPO Intake & Output (Last 24Hrs): Intake & Output 08/08/18 08/09/18 08/10/18 08/11/18 06:59 06:59 06:59 06:59 Intake Total 2385.000 / 2385.000 3310.667 / 3310.667 2626.250 / 2626.250 845.833 / 845.833 Output Total 3175 / 3175 2160 / 2160 1650 / 1650 325 / 325 Balance -790.000 / -816.934 8629.667 / 1150.667 976.250 / 976.250 520.833 / 520.833 Weight 78.8 kg 78.8 kg Laboratory Data (Last 24 Hrs):: 08/10/18 08/10/18 03:39 13:21 Sodium 145 Potassium 3.9 Chloride 116 H Carbon Dioxide 26 BUN 16 Creatinine 0.84 Glucose 115 H Calcium 7.5 L Phosphorus 1.7 L Magnesium 2.0 Nutrition Assessment:: Please refer to the Notes section of the EMR for the most recent lithographic printing machinist note. - Assessment 82yo female initiated on PPN for NPO x 6 days s/p SBO ex lap with lysis of adhesions Pt has peripheral access only. Will be difficult to provide full daily calorie requirements while staying under 600mosm for peripheral access Max fluid per day per hospitalist is 2400 ml - Plan For day 1 of PN administration, the following will be ordered: Macronutrients Amino acids 65 grams/day (1.2g/kg IBW) Dextrose 125 grams/day Lipids 25 grams/day Micronutrients: essentially standard lytes except increase magnesium and minimize chloride based on PRP results from 08/10 Sodium phosphate 21 MMol Potassium acetate 35 mEq Magnesium sulfate 8.12 mEq Calcium gluconate 4.65 mEq Multivitamins 10 mL Trace Elements 10 mL Additional additives: Total volume 2400 mL to be infused over 24 hrs will provide 935 kcal/day Final osmolarity 568 mOsm/L (maximum for PPN is 600 mOsm/L) Labs to be ordered per PN order protocol Pharmacy will follow and adjust parenteral nutrition orders on a daily basis. Thank you.
--- NOTE | 2018-08-10 14:39 | Hospitalist Progress Note ---
Date of Service August 10, 2018 Assessment & Plan (1) Small bowel obstruction: failed conservative management POD #2 s/p ex lap with lysis of adhesions defer management to gen surg NG tube remains in place -changed IVFs to D51/2NS with KCl however now going to start PPN todya and can dc IVFs -continue NPO, pain control (2) Oliguria: Improved today, was secondary to dehydration (3) HTN (hypertension): Severely uncontrolled BPs today with headache as a symptom -cont metoprolol 100mg po bid cont IV hydralazine but increase to 10mg IV q8h -restart home irbesartan as can be crushed and put through NGT -she is allergic to ACEi-this was added to allergy list today and cannot use IV vasotec -can use clonidine prn if needed (4) Osteoarthritis of knees, bilateral: Continue Voltaren gel. (5) Hyponatremia: resolved, now actually with hypernatremia borderline (6) Hypomagnesemia: Resolved (7) Hypokalemia: resolved (8) Chronic kidney disease, stage 3a: Creatinine continues to remain stable bmp AM tomorrow (9) Tachycardia: EKG w/ sinus tach no symptoms from this She did not receive her metoprolol for 36 hours and this is the likely cause of her tachycardia -restarted metoprolol this AM and expect this should improve (10) DVT prophylaxis: lovenox daughter updated at bedside Dispo-remain on surgical post-op floor Subjective Pt having a 6/10 frontal headache with high BPs today. Denies numbness/tingling/weakness, denies CP or SOB. Has a sore throat and is very irritated by her NGT. Has some abd pain, no flatus. She did ambulate today a bit in the room and denies lightheadedness Review of Systems All systems reviewed & are unremarkable except as noted in HPI & below Physical Exam Vital Signs (Past 24 Hours): Last Vital Signs Temp 37 C 08/10/18 13:52 Pulse 106 H 08/10/18 13:52 Resp 18 08/10/18 09:08 BP 199/99 H 08/10/18 13:52 Pulse Ox 93 08/10/18 09:08 Constitutional: WD/WN, vitals as above Eyes: PERRL, conjunctivae normal, anicteric sclerae ENMT: external ear and nose normal, oropharynx normal Neck: trachea midline, no thyromegaly Respiratory: normal respiratory effort, lungs clear to auscultation Cardiovascular: RRR, no murmur, no edema Gastrointestinal (Abdomen): Inspection/Auscultation: + hypoactive bowel sounds; + abdomen abnormal to inspection (dressing over midline in place c/d/i) Percussion/Palpation: + abdomen tender (over incision site without guarding) and abdomen soft Musculoskeletal: Extremities: extremities normal to inspection; no cyanosis and no clubbing Skin: no rashes, warm and dry Neurologic: moves all extremities and awake; no focal motor deficits Psychiatric: A+Ox3, euthymic affect Results & Data Laboratory Results 08/11/18 08/11/18 08/10/18 Range/Units 06:41 06:01 23:48 Sodium Pending Potassium Pending Chloride Pending Carbon Dioxide Pending Anion Gap Pending BUN Pending Creatinine Pending Est Cr Clr Drug Dosing Pending Est GFR ( Amer) Pending Est GFR (Non-Af Amer) Pending BUN/Creatinine Ratio Pending Glucose Pending POC Glucose 96 99 (70-99) Calcium Pending Phosphorus Pending (2.5-4.9) mg/dl Magnesium Pending (1.8-2.4) mg/dl Total Bilirubin Pending AST Pending ALT Pending Alkaline Phosphatase Pending Prealbumin Pending Triglycerides Pending 08/10/18 Range/Units 13:21 Sodium Potassium Chloride Carbon Dioxide Anion Gap BUN Creatinine Est Cr Clr Drug Dosing Est GFR ( Amer) Est GFR (Non-Af Amer) BUN/Creatinine Ratio Glucose POC Glucose (70-99) Calcium Phosphorus 1.7 L (2.5-4.9) mg/dl Magnesium 2.0 (1.8-2.4) mg/dl Total Bilirubin AST ALT Alkaline Phosphatase Prealbumin Triglycerides (1) Osteoarthritis of knees, bilateral Osteoarthritis type: primary Qualified Code(s): M17.0 - Bilateral primary osteoarthritis of knee (2) HTN (hypertension) Hypertension type: essential hypertension Qualified Code(s): I10 - Essential (primary) hypertension
[2018-08-10] MEDS ORDERED: ENALAPRILAT 0.625 MG in SYRINGE 9.5 ML IV SCH (14:45)
[2018-08-10] MEDS: DEXTROSE 10% 1,000 ML IV SCH (15:35)
[2018-08-10] MEDS ORDERED: CUSTOM PERIPHERAL PN IV SCH (16:00)
[2018-08-10] MEDS: IRBESARTAN 150 MG TAB PO SCH (16:12)
[2018-08-11] MEDS: HYDROmorphone INJ 0.5 MG/0.5 ML SYR IV PRN ×2 (04:21→17:09)
[2018-08-11] MEDS: HydrALAZINE HCL 20 MG/ML VIAL IV SCH ×3 (06:25→22:00)
[2018-08-11] MEDS ORDERED: cloNIDine HCl 0.1 MG TAB PO PRN (07:32)
[2018-08-11 08:01] LABS: Creatinine Clr Calc Pharmacy 63.3 ml/min; Est GFR (African American) 94.2; Est GFR (Non-African American) 81.3; Potassium 3.5 mmol/L (3.5-5.1)
[2018-08-11 08:08] LABS: Bilirubin,Total 0.7 mg/dl (0.2-1); Phosphorus 2.5 mg/dl (2.5-4.9); Prealbumin 13.3 mg/dl (20-40)
[2018-08-11] MEDS: METOPROLOL TARTRATE 100 MG TAB PO SCH ×2 (08:58→21:49)
[2018-08-11] MEDS: ENOXAPARIN INJ 40 MG/0.4 ML SYR SQ SCH (08:59)
[2018-08-11] MEDS: IRBESARTAN 150 MG TAB PO SCH ×2 (09:00→09:58)
[2018-08-11] MEDS: DICLOFENAC SOD 1% GEL 100 GM TUBE EXT SCH ×4 (09:00→21:49)
--- NOTE | 2018-08-11 10:47 | Hospitalist Progress Note ---
Date of Service August 11, 2018 Assessment & Plan (1) Small bowel obstruction: failed conservative management POD #3 s/p ex lap with lysis of adhesions defer management to gen surg NG tube remains in place Had small BM with suppository, received Miralax on 08/10 -no flatus yet but bowel sounds picking up -continue NPO, pain control -continue PPN and asked Pharmacist today to decrease volume to 1800 mL if possible due to developing volume overload (2) Oliguria: resolved with increased IVFs (3) HTN (hypertension): Severely uncontrolled BPs this stay with headache as a symptom, otherwise no focal neuro deficits or end organ damage BPs improved today but still 170s systolic -cont metoprolol 100mg po bid -cont IV hydralazine 10mg IV q8h -continue home irbesartan 300mg daily as can be crushed and put through NGT -she is allergic to ACEi-this was added to allergy list --therefore cannot use IV vasotec -can use clonidine prn if needed (4) Osteoarthritis of knees, bilateral: Continue Voltaren gel. (5) Hyponatremia: resolved -follow BMP (6) Hypomagnesemia: Resolved (7) Hypokalemia: resolved -replacing in PPN (8) Chronic kidney disease, stage 3a: Creatinine continues to remain stable /normal at 0.6 bmp AM tomorrow (9) Tachycardia: EKG w/ sinus tach no symptoms from this She did not receive her metoprolol for 36 hours and this is the likely cause of her tachycardia--> now improved -continue metoprolol (10) Protein calorie malnutrition: with prealbumin 13, no po intake in 7 days -started PPN on 08/10 (11) DVT prophylaxis: lovenox daughter updated at bedside Dispo-remain on surgical post-op floor Subjective Abd pain seems better controlled today, had a small BM with suppository and Miralax yesterday but no flatus since then. Denies CP or SOB except some mild dyspnea with ambulating. She did ambulate to the bathroom several times and was able to get out of bed herself. Still with a mild headache that comes and goes and BPs still elevated but improved. Denies numbness/tingling/weakness. Review of Systems All systems reviewed & are unremarkable except as noted in HPI & below Physical Exam Vital Signs (Past 24 Hours): Last Vital Signs Temp 36.9 C 08/11/18 08:06 Pulse 108 H 08/11/18 08:57 Resp 18 08/11/18 08:06 BP 174/82 H 08/11/18 08:57 Pulse Ox 91 08/11/18 08:06 Constitutional: WD/WN, vitals as above Eyes: PERRL, conjunctivae normal, anicteric sclerae ENMT: external ear and nose normal, oropharynx normal (with NGT in place draining bilious fluid) Neck: trachea midline, no thyromegaly Respiratory: normal respiratory effort Auscultation: + crackles (bibasilar); no diminished lung sounds, no rhonchi and no wheezes Cardiovascular: RRR, no murmur, no edema Gastrointestinal (Abdomen): Inspection/Auscultation: + hypoactive bowel sounds (but improved/increased from yesterday); + abdomen abnormal to inspection (abd binder in place and not removed) Percussion/Palpation: + abdomen tender (over incision site without guarding) and abdomen soft Musculoskeletal: Extremities: extremities normal to inspection; no cyanosis and no clubbing Skin: no rashes, warm and dry Neurologic: moves all extremities and awake; no focal motor deficits Psychiatric: A+Ox3, euthymic affect Results & Data Laboratory Results 08/11/18 08/11/18 08/10/18 Range/Units 06:41 06:01 23:48 Sodium 139 (136-145) mmol/L Potassium 3.5 (3.5-5.1) mmol/L Chloride 107 (98-107) mmol/L Carbon Dioxide 27 (21-32) mmol/L Anion Gap 5.0 (3-11) BUN 17 (7-18) mg/dl Creatinine 0.67 (0.6-1.2) mg/dl Est Cr Clr Drug Dosing 63.3 ml/min Est GFR ( Amer) 94.2 Est GFR (Non-Af Amer) 81.3 BUN/Creatinine Ratio 26.0 H (10-20) Glucose 104 H (70-99) mg/dl POC Glucose 96 99 (70-99) Calcium 8.0 L (8.5-10.1) mg/dl Phosphorus 2.5 (2.5-4.9) mg/dl Magnesium 2.0 (1.8-2.4) mg/dl Total Bilirubin 0.7 (0.2-1) mg/dl AST 13 L (15-37) U/L ALT 21 (12-78) U/L Alkaline Phosphatase 66 (45-117) U/L Prealbumin 13.3 L (20-40) mg/dl Triglycerides 132 (0-150) mg/dl 08/10/18 Range/Units 13:21 Sodium (136-145) mmol/L Potassium (3.5-5.1) mmol/L Chloride (98-107) mmol/L Carbon Dioxide (21-32) mmol/L Anion Gap (3-11) BUN (7-18) mg/dl Creatinine (0.6-1.2) mg/dl Est Cr Clr Drug Dosing ml/min Est GFR ( Amer) Est GFR (Non-Af Amer) BUN/Creatinine Ratio (10-20) Glucose (70-99) mg/dl POC Glucose (70-99) Calcium (8.5-10.1) mg/dl Phosphorus 1.7 L (2.5-4.9) mg/dl Magnesium 2.0 (1.8-2.4) mg/dl Total Bilirubin (0.2-1) mg/dl AST (15-37) U/L ALT (12-78) U/L Alkaline Phosphatase (45-117) U/L Prealbumin (20-40) mg/dl Triglycerides (0-150) mg/dl (1) HTN (hypertension) Hypertension type: essential hypertension Qualified Code(s): I10 - Essential (primary) hypertension (2) Osteoarthritis of knees, bilateral Osteoarthritis type: primary Qualified Code(s): M17.0 - Bilateral primary osteoarthritis of knee (3) Protein calorie malnutrition Protein-calorie malnutrition severity: moderate Qualified Code(s): E44.0 - Moderate protein-calorie malnutrition
--- NOTE | 2018-08-11 12:24 | Surgery Progress Note ---
Date of Service August 11, 2018 Assessment & Plan (1) Small bowel obstruction: POD 3 awaiting return of bowel fx will check [facility] pharmacy requesting PICC line for TPN. will likely need as unlikely to be tolerating reg diet in the near future keep NGT for now Subjective doing ok. adequate pain control. no bm yet Physical Exam Vital Signs (Past 24 Hours): Last Vital Signs Temp 36.9 C 08/11/18 08:06 Pulse 94 H 08/11/18 11:35 Resp 18 08/11/18 08:06 BP 171/90 H 08/11/18 11:35 Pulse Ox 91 08/11/18 08:06 Physical Exam: alert. nad abd: soft. mild distension. expected ttp NGT with approx 250 cc past 4 hours-green /bilious
--- NOTE | 2018-08-11 15:17 | XRay Report ---
[facility] CLINICAL HISTORY: Small bowel obstruction. FINDINGS: 3 AP, portable, supine abdominal radiographs are compared to study dated 08/07/2018 and navarro elated with abdominal CT dated 08/04/2018. An enteric tube projects over the distal stomach. Midline sk in clips are noted. There is gaseous distention of the small bowel and colon No evidence of intraperi toneal free air is seen on these supine images. Atherosclerotic calcification is noted in the abdomin al aorta. Calcified phleboliths are noted in the pelvis. The skeletal structures are osteopenic. Ther e is lumbosacral spondylosis. IMPRESSION: There is gaseous distention of the small bowel loops and colon with evidence of interval abdominal surgery. The appearance is most typical for a postoperative ileus. Clinical correlation wi ll be required. Electronically signed by: Kris Douglass M.D. 08/11/2018 3:16 PM
[2018-08-11] MEDS ORDERED: CUSTOM PERIPHERAL PN IV SCH ×2 (16:00)
[2018-08-12] MEDS: HYDROmorphone INJ 0.5 MG/0.5 ML SYR IV PRN (00:23)
[2018-08-12] MEDS: ACETAMINOPHEN 1,000 MG/100 ML VIAL IV PRN ×2 (04:47→20:32)
[2018-08-12 06:26] LABS: Basophils # (auto) 0.02 K/uL (0-0.2); Basophils % (auto) 0.2 %; Eosinophils # (auto) 0.39 K/uL (0-0.5); Eosinophils % (auto) 3.8 %; Hematocrit (blood only) 35.9 % (37-47); Hemoglobin 11.9 g/dL (12.0-16.0); Lymphocytes # (auto) 1.64 K/uL (1.2-3.4); Mean Corpuscular Hgb Conc 33.1 g/dL (32-36); Mean Corpuscular Volume 92.8 fL (80-100); Mean Platelet Volume 8.7 fL (7.4-10.4); Monocytes # (auto) 1.23 K/uL (0.11-0.59); Platelet Count 265 K/uL (130-400); RDW Coefficient of Variation 14.4 % (11.5-14.5); RDW Standard Deviation 49.1 fL (36.4-46.3); Red Blood Count 3.87 M/uL (4.2-5.4); White Blood Count 10.28 K/uL (4.8-10.8)
[2018-08-12] MEDS: HydrALAZINE HCL 20 MG/ML VIAL IV SCH ×3 (06:28→21:08)
[2018-08-12 07:05] LABS: Albumin Level 2.4 gm/dl (3.4-5.0); BUN Creatinine Ratio 31.1 (10-20); Calcium 8.1 mg/dl (8.5-10.1); Creatinine Clr Calc Pharmacy 64.2 ml/min; Est GFR (African American) 94.7; Est GFR (Non-African American) 81.7; Potassium 3.3 mmol/L (3.5-5.1)
[2018-08-12 07:09] LABS: Albumin Globulin Ratio 0.9 (0.9-2); Bilirubin,Total 0.6 mg/dl (0.2-1); Globulin 2.8 gm/dl (2.5-4.0); Total Protein 5.2 gm/dl (6.4-8.2)
[2018-08-12] MEDS: DEXTROSE 10% 1,000 ML IV SCH ×2 (08:57→14:01)
[2018-08-12] MEDS: METOPROLOL TARTRATE 100 MG TAB PO SCH ×2 (08:58→20:45)
[2018-08-12] MEDS: ENOXAPARIN INJ 40 MG/0.4 ML SYR SQ SCH (08:58)
[2018-08-12] MEDS: IRBESARTAN 150 MG TAB PO SCH (08:58)
[2018-08-12] MEDS: DICLOFENAC SOD 1% GEL 100 GM TUBE EXT SCH ×4 (08:59→20:44)
--- NOTE | 2018-08-12 11:32 | Hospitalist Progress Note ---
Date of Service August 12, 2018 Assessment & Plan (1) Small bowel obstruction: Failed conservative management POD #4 s/p ex lap with lysis of adhesions defer management to gen surg NG tube remains in place, but is finally passing a lot of flatus since last evening, no bowel movement -Surgeon advised RN to leave NG tube in for now to LIS as she is still has a lot of output in the canister, but hopeful the NG tube can be removed tomorrow -continue NPO, pain control -continue PPN and hold off on TPN today as she might be able to advance her diet tomorrow (2) HTN (hypertension): Severely uncontrolled BPs this stay with headache as a symptom, otherwise no focal neuro deficits or end organ damage BPs improved today but still 160s systolic -cont metoprolol 100mg po bid crushed through NG tube -cont scheduled IV hydralazine 10mg IV q8h -continue home irbesartan 300mg daily as can be crushed and put through NGT -she is allergic to ACEi-this was added to allergy list --therefore cannot use IV vasotec -can use clonidine prn if needed -Holding home indapamide while n.p.o. and receiving fluids -If were to need any further IV antihypertensives, she would be required to move down to the telemetry unit-I do not think she will need this (3) Osteoarthritis of knees, bilateral: Continue Voltaren gel. (4) Hyponatremia: resolved -follow BMP (5) Hypomagnesemia: Resolved (6) Hypokalemia: Potassium low again today at 3.3 -replacing in PPN plus we will add KCl 20 mill equivalents IV x1 now -Follow BMP in the morning (7) Chronic kidney disease, stage 3a: Creatinine continues to remain stable /normal at 0.6 bmp AM tomorrow -Avoid nephrotoxins -Renally dose medications as necessary (8) Tachycardia: EKG w/ sinus tach no symptoms from this She did not receive her metoprolol for 36 hours and this is the likely cause of her tachycardia--> now improved with restarting metoprolol although persists somewhat-may be related to pain -continue metoprolol same dose for now (9) Protein calorie malnutrition: with prealbumin 13, no po intake in 8 days -started PPN on 08/10 -Continue PPN for today and may be able to advance diet later today or tomorrow (10) Headache: Patient normally drinks 1 pot of coffee every day at home and has now not had that her entire hospital stay-this headache is likely a combination of caffeine withdrawal, NG tube in place, and she thinks due to the dry air. Could also be from elevated blood pressures contributing. Her headache does significantly improve with acetaminophen. -Continue blood pressure control as above -Continue acetaminophen as needed -Once diet in place, she should be allowed to have caffeinated coffee 1 cup daily (11) Oliguria: resolved with increased IVFs (12) DVT prophylaxis: lovenox daughter updated at bedside Dispo-remain on surgical post-op floor, will likely remain hospitalized for at least 2-3 more days while awaiting bowel function to return, PT/OT are recommending inpatient rehab -Case management consult replaced today requesting referrals for inpatient rehab Physical Exam Vital Signs (Past 24 Hours): Last Vital Signs Temp 36.2 C L 08/12/18 10:57 Pulse 115 H 08/12/18 07:44 Resp 18 08/12/18 07:44 BP 169/85 H 08/12/18 07:44 Pulse Ox 94 08/12/18 07:44 Constitutional: WD/WN, vitals as above Eyes: PERRL, conjunctivae normal, anicteric sclerae ENMT: external ear and nose normal, oropharynx normal (with NGT in place draining bilious fluid) Neck: trachea midline, no thyromegaly Respiratory: normal respiratory effort, lungs clear to auscultation normal respiratory effort Auscultation: + crackles (bibasilar); no diminished lung sounds, no rhonchi and no wheezes Cardiovascular: RRR, no murmur, no edema Gastrointestinal (Abdomen): Inspection/Auscultation: + hypoactive bowel sounds (but improved/increased from yesterday); + abdomen abnormal to inspection (abd binder in place and not removed) Percussion/Palpation: + abdomen tender (over incision site without guarding) and abdomen soft Musculoskeletal: Extremities: extremities normal to inspection; no cyanosis and no clubbing Skin: no rashes, warm and dry Neurologic: moves all extremities and awake; no focal motor deficits Psychiatric: A+Ox3, euthymic affect (1) HTN (hypertension) Hypertension type: essential hypertension Qualified Code(s): I10 - Essential (primary) hypertension (2) Osteoarthritis of knees, bilateral Osteoarthritis type: primary Qualified Code(s): M17.0 - Bilateral primary osteoarthritis of knee (3) Protein calorie malnutrition Protein-calorie malnutrition severity: moderate Qualified Code(s): E44.0 - Moderate protein-calorie malnutrition
[2018-08-12] MEDS: POTASSIUM CHLORIDE / WTR 10 MEQ/100 ML PLCT IV SCH ×2 (11:34→13:48)
--- NOTE | 2018-08-12 14:03 | Surgery Progress Note ---
Date of Service August 12, 2018 Assessment & Plan (1) Small bowel obstruction: awaiting full return of bowel fx NGT output still over 750 ccs bilious overnight. recommend keeping ngt pharmacy asked to place PICC line...will hold another day at pt request as bowel fx appears to be returning. She can discuss with her primary surgeon tomorrow. Subjective feeling ok. would really like to have NGT removed. + dramatically increased flatus. no bm yet Physical Exam Vital Signs (Past 24 Hours): Last Vital Signs Temp 36.2 C L 08/12/18 10:57 Pulse 96 H 08/12/18 13:52 Resp 18 08/12/18 07:44 BP 186/91 H 08/12/18 13:52 Pulse Ox 94 08/12/18 07:44 Physical Exam: alert. nad abd: soft. +distended. nt. incision c/d/i
[2018-08-12] MEDS ORDERED: CUSTOM PERIPHERAL PN IV SCH (16:00)
[2018-08-13] MEDS: HydrALAZINE HCL 20 MG/ML VIAL IV SCH ×3 (06:37→21:34)
[2018-08-13 07:33] LABS: Albumin Level 2.6 gm/dl (3.4-5.0); BUN Creatinine Ratio 30.1 (10-20); Calcium 8.4 mg/dl (8.5-10.1); Creatinine Clr Calc Pharmacy 60.6 ml/min; Est GFR (African American) 92.9; Est GFR (Non-African American) 80.1; Potassium 3.3 mmol/L (3.5-5.1)
[2018-08-13 07:36] LABS: Albumin Globulin Ratio 0.9 (0.9-2); Bilirubin,Total 0.6 mg/dl (0.2-1); Globulin 2.9 gm/dl (2.5-4.0); Phosphorus 3.1 mg/dl (2.5-4.9); Total Protein 5.5 gm/dl (6.4-8.2)
[2018-08-13] MEDS ORDERED: SOD PHOSPHATE/SOD BIPHOSPHATE ENEMA 132 ML BTL PR STA (07:43)
--- NOTE | 2018-08-13 07:47 | Surgery Progress Note ---
Date of Service August 13, 2018 passed a lot of gas, no BM yet, pt denies abdominal pain, no nausea and vomiting, NG 1800ml Assessment & Plan (1) Small bowel obstruction: passed gas, but NG - still high out-put,, high HR plan, EKG , consult cryptologic linguist if any EKG change, demetri anema, small bowel follow through study to R/O obstruction, coeerct low k, start PPI today by hospitalist Thanks, will F/U Subjective still no flatus or bowel movement yet abdominal pain controlled no nausea or vomiting +hungry + belching walked in room and outside of room with PT this morning no shortness of breath or chest pain Constitutional: as per Subjective / HPI Ear, Nose, Mouth, Throat: as per Subjective / HPI Respiratory: as per Subjective / HPI Cardiovascular: as per Subjective / HPI Gastrointestinal: as per Subjective / HPI Genitourinary (Female): + as per Subjective / HPI Neurologic: as per Subjective / HPI Psychiatric: as per Subjective / HPI Endocrine: as per Subjective / HPI Hematologic / Lymphatic: as per Subjective / HPI Physical Exam Vital Signs (Past 24 Hours): Last Vital Signs Temp 37.1 C 08/13/18 07:32 Pulse 114 H 08/13/18 07:32 Resp 18 08/13/18 07:32 BP 166/80 H 08/13/18 07:32 Pulse Ox 92 08/13/18 07:32 Constitutional: WD/WN, vitals as above Neck: trachea midline, no thyromegaly Respiratory: normal respiratory effort, lungs clear to auscultation Cardiovascular: RRR, no murmur, no edema Gastrointestinal (Abdomen): Percussion/Palpation: abdomen soft no distend, no tenderness, Neurologic: awake Psychiatric: Orientation: alert and oriented x 3 Results & Data Laboratory Results Abnormal lab results 08/12/18 08/12/18 08/13/18 Range/Units 12:03 23:57 06:04 Potassium (3.5-5.1) mmol/L Carbon Dioxide (21-32) mmol/L BUN (7-18) mg/dl BUN/Creatinine Ratio (10-20) Glucose (70-99) mg/dl POC Glucose 108 H 102 H 109 H (70-99) Calcium (8.5-10.1) mg/dl Total Protein (6.4-8.2) gm/dl Albumin (3.4-5.0) gm/dl 08/13/18 Range/Units 06:52 Potassium 3.3 L (3.5-5.1) mmol/L Carbon Dioxide 33 H (21-32) mmol/L BUN 21 H (7-18) mg/dl BUN/Creatinine Ratio 30.1 H (10-20) Glucose 116 H (70-99) mg/dl POC Glucose (70-99) Calcium 8.4 L (8.5-10.1) mg/dl Total Protein 5.5 L (6.4-8.2) gm/dl Albumin 2.6 L (3.4-5.0) gm/dl Diagnostic Findings KUB CLINICAL HISTORY: Small bowel obstruction. FINDINGS: 3 AP, portable, supine abdominal radiographs are compared to study dated 08/07/2018 and correlated with abdominal CT dated 08/04/2018. An enteric tube projects over the distal stomach. Midline skin clips are noted. There is gaseous distention of the small bowel and colon No evidence of intraperitoneal free air is seen on these supine images. Atherosclerotic calcification is noted in the abdominal aorta. Calcified phleboliths are noted in the pelvis. The skeletal structures are osteopenic. There is lumbosacral spondylosis. IMPRESSION: There is gaseous distention of the small bowel loops and colon with evidence of interval abdominal surgery. The appearance is most typical for a postoperative ileus. Clinical correlation will be required.
[2018-08-13] MEDS ORDERED: POTASSIUM CHLORIDE 10 MEQ TABCR PO STA (07:51)
[2018-08-13] MEDS ORDERED: POTASSIUM CHLORIDE 20 MEQ/15 ML UDC NG STA ×2 (08:10→09:54)
--- NOTE | 2018-08-13 09:24 | XRay Report ---
XR chest 1V portable CLINICAL HISTORY: Cough. Evaluate for pneumonia. COMPARISON STUDY: Chest radiograph March 17, 2017. FINDINGS: Tip of nasogastric tube is below the lower aspect of this image but at least within the pro ximal stomach. Moderate cardiomegaly is noted without evidence for pulmonary edema. A small right ple ural effusion is noted. There is a trace left pleural effusion. No consolidation is identified. IMPRESSION: 1. No consolidation identified. 2. Small right and trace left pleural effusions. 3. Moderate cardiomegaly without evidence for pulmonary edema. Electronically signed by: Josef Bolton M.D. 08/13/2018 9:23 AM
--- NOTE | 2018-08-13 10:34 | Fluoroscopy Report ---
SMALL BOWEL FOLLOW-THROUGH CLINICAL HISTORY: S/P exploratory laparotomy, lysis of adhesion COMPARISON STUDY: CT of the abdomen and pelvis August 04, 2018. KUB August 11, 2018. FLUOROSCOPY TIME: 0.6 minutes. FLUOROSCOPIC IMAGES: 11 TECHNIQUE: 300 cc of Optiray 300 was instilled through the indwelling nasogastric tube. Overhead KUBs were obtained followed by spot images. FINDINGS: Skin daija from laparotomy are noted. Contrast reached the colon in 40 minutes. No transi tion point was identified. Small bowel loops are mildly dilated, measuring 3.4 cm in caliber. However , there is no evidence for a residual small bowel obstruction on this exam. IMPRESSION: Mild small bowel dilatation without evidence for a residual small bowel obstruction as oral contrast reached the colon in 40 minutes. No transition point identified. Electronically signed by: Josef Bolton M.D. 08/13/2018 10:33 AM
[2018-08-13] MEDS ORDERED: SOD PHOSPHATE/SOD BIPHOSPHATE ENEMA 132 ML BTL PR ONE (10:52)
[2018-08-13] MEDS: DICLOFENAC SOD 1% GEL 100 GM TUBE EXT SCH ×4 (11:08→21:28)
[2018-08-13] MEDS: PANTOprazole 40 MG in SYRINGE 0 ML IV SCH ×2 (11:20→21:29)
[2018-08-13] MEDS: ENOXAPARIN INJ 40 MG/0.4 ML SYR SQ SCH (11:21)
[2018-08-13] MEDS: METOPROLOL TARTRATE 100 MG TAB PO SCH ×2 (11:21→21:29)
[2018-08-13] MEDS: IRBESARTAN 150 MG TAB PO SCH (11:21)
[2018-08-13] MEDS: POTASSIUM CHLORIDE 20MEQ/15ML 473ML NG SCH (11:46)
[2018-08-13] MEDS: DEXTROSE 10% 1,000 ML IV SCH (13:27)
--- NOTE | 2018-08-13 13:47 | Surgery Progress Note ---
Date of Service August 13, 2018 SMALL BOWEL FOLLOW-THROUGH CLINICAL HISTORY: S/P exploratory laparotomy, lysis of adhesion COMPARISON STUDY: CT of the abdomen and pelvis August 04, 2018. KUB August 11, 2018. FLUOROSCOPY TIME: 0.6 minutes. FLUOROSCOPIC IMAGES: 11 TECHNIQUE: 300 cc of Optiray 300 was instilled through the indwelling nasogastric tube. Overhead KUBs were obtained followed by spot images. FINDINGS: Skin daija from laparotomy are noted. Contrast reached the colon in 40 minutes. No transition point was identified. Small bowel loops are mildly dilated, measuring 3.4 cm in caliber. However, there is no evidence for a residual small bowel obstruction on this exam. IMPRESSION: Mild small bowel dilatation without evidence for a residual small bowel obstruction as oral contrast reached the colon in 40 minutes. No transition point identified. pt has no abdominal pain, pt has no nausea, no vomiting after stop NG to suction, Assessment & Plan (1) Small bowel obstruction: pull out NG, start clear diet, will F/U Subjective still no flatus or bowel movement yet abdominal pain controlled no nausea or vomiting +hungry + belching walked in room and outside of room with PT this morning no shortness of breath or chest pain Constitutional: as per Subjective / HPI Ear, Nose, Mouth, Throat: as per Subjective / HPI Respiratory: as per Subjective / HPI Cardiovascular: as per Subjective / HPI Gastrointestinal: as per Subjective / HPI Genitourinary (Female): + as per Subjective / HPI Neurologic: as per Subjective / HPI Psychiatric: as per Subjective / HPI Endocrine: as per Subjective / HPI Hematologic / Lymphatic: as per Subjective / HPI Physical Exam Vital Signs (Past 24 Hours): Last Vital Signs Temp 36.5 C 08/13/18 11:40 Pulse 114 H 08/13/18 11:40 Resp 20 08/13/18 11:40 BP 170/99 H 08/13/18 11:40 Pulse Ox 92 08/13/18 11:40 Constitutional: WD/WN, vitals as above Neck: trachea midline, no thyromegaly Respiratory: normal respiratory effort, lungs clear to auscultation Cardiovascular: RRR, no murmur, no edema Gastrointestinal (Abdomen): Percussion/Palpation: abdomen soft NT, ND incision heals well, Neurologic: awake Psychiatric: Orientation: alert and oriented x 3 Results & Data Diagnostic Findings SMALL BOWEL FOLLOW-THROUGH CLINICAL HISTORY: S/P exploratory laparotomy, lysis of adhesion COMPARISON STUDY: CT of the abdomen and pelvis August 04, 2018. KUB August 11, 2018. FLUOROSCOPY TIME: 0.6 minutes. FLUOROSCOPIC IMAGES: 11 TECHNIQUE: 300 cc of Optiray 300 was instilled through the indwelling nasogastric tube. Overhead KUBs were obtained followed by spot images. FINDINGS: Skin daija from laparotomy are noted. Contrast reached the colon in 40 minutes. No transition point was identified. Small bowel loops are mildly dilated, measuring 3.4 cm in caliber. However, there is no evidence for a re sidual small bowel obstruction on this exam.
--- NOTE | 2018-08-13 15:01 | Hospitalist Progress Note ---
Date of Service August 13, 2018 Assessment & Plan (1) Small bowel obstruction: Failed conservative management s/p ex lap with lysis of adhesions 08/08 defer management to gen surg - NG tube removed today and start clears -continue pain control -continue PPN while advancing diet (2) HTN (hypertension): Severely uncontrolled BPs this stay with headache as a symptom, otherwise no focal neuro deficits or end organ damage -cont metoprolol 100mg po bid crushed through NG tube -cont scheduled IV hydralazine 10mg IV q8h -continue home irbesartan 300mg daily as can be crushed and put through NGT -she is allergic to ACEi-this was added to allergy list --therefore cannot use IV vasotec -can use clonidine prn if needed -Holding home indapamide while n.p.o. and receiving fluids - may be able to restart tomorrow if taking good po -If were to need any further IV antihypertensives, she would be required to move down to the telemetry unit- she is not symptomatic today - continue current regimen, blood pressures may improve with increased comfort following NG tube removal (3) Osteoarthritis of knees, bilateral: Continue Voltaren gel. (4) Hyponatremia: resolved -follow BMP (5) Hypomagnesemia: Resolved (6) Hypokalemia: resolved (7) Chronic kidney disease, stage 3a: Creatinine continues to remain stable -Avoid nephrotoxins -Renally dose medications as necessary (8) Tachycardia: EKG w/ sinus tach no symptoms from this -may be related to pain -continue metoprolol same dose for now (9) Protein calorie malnutrition: with prealbumin 13, no po intake in 9 days -started PPN on 08/10 -Continue PPN while advancing diet (10) Headache: Patient normally drinks 1 pot of coffee every day at home and has now not had that her entire hospital stay-this headache is likely a combination of caffeine withdrawal, NG tube in place, and she thinks due to the dry air. Could also be from elevated blood pressures contributing. Her headache does significantly improve with acetaminophen. -Continue blood pressure control as above -Continue acetaminophen as needed (11) Oliguria: resolved with IVF (12) DVT prophylaxis: lovenox Dispo-remain on surgical post-op floor, will likely remain hospitalized for at least 2-3 more days while awaiting bowel function to return, PT/OT are recommending inpatient rehab -Case management consulted for assistance with discharge planning Subjective Ms. Ho feels generally fatigued and worn out. She is looking forward to getting her NG tube pulled per surgery. She does not have specific complaints. Daughter at bedside Review of Systems All systems reviewed & are unremarkable except as noted in HPI & below Physical Exam Vital Signs (Past 24 Hours): Last Vital Signs Temp 36.5 C 08/13/18 11:40 Pulse 114 H 08/13/18 11:40 Resp 20 08/13/18 11:40 BP 170/99 H 08/13/18 11:40 Pulse Ox 92 08/13/18 11:40 Physical Exam: General: no distress Eyes: normal inspection, PERLL Respiratory: chest non tender, clear to auscultation, normal breath sounds, no respiratory distress, no accessory muscle use Cardiac: regular rate and rhythm, no rub or gallop, no murmur, no edema, no jvd GI/: active bowel sounds, no abd pain or tenderness, soft, non distended Extremities: normal range of motion, normal strength, non tender Neuro/Psych: alert and oriented x 3, normal mood and affect Skin: normal color, dry Results & Data Laboratory Results Abnormal lab results 08/12/18 08/13/18 08/13/18 Range/Units 23:57 06:04 06:52 Potassium 3.3 L (3.5-5.1) mmol/L Carbon Dioxide 33 H (21-32) mmol/L BUN 21 H (7-18) mg/dl BUN/Creatinine Ratio 30.1 H (10-20) Glucose 116 H (70-99) mg/dl POC Glucose 102 H 109 H (70-99) Calcium 8.4 L (8.5-10.1) mg/dl Total Protein 5.5 L (6.4-8.2) gm/dl Albumin 2.6 L (3.4-5.0) gm/dl 08/13/18 Range/Units 12:10 Potassium (3.5-5.1) mmol/L Carbon Dioxide (21-32) mmol/L BUN (7-18) mg/dl BUN/Creatinine Ratio (10-20) Glucose (70-99) mg/dl POC Glucose 123 H (70-99) Calcium (8.5-10.1) mg/dl Total Protein (6.4-8.2) gm/dl Albumin (3.4-5.0) gm/dl (1) HTN (hypertension) Hypertension type: essential hypertension Qualified Code(s): I10 - Essential (primary) hypertension (2) Osteoarthritis of knees, bilateral Osteoarthritis type: primary Qualified Code(s): M17.0 - Bilateral primary osteoarthritis of knee (3) Protein calorie malnutrition Protein-calorie malnutrition severity: moderate Qualified Code(s): E44.0 - Moderate protein-calorie malnutrition
[2018-08-13] MEDS ORDERED: CUSTOM PERIPHERAL PN IV SCH (16:00)
[2018-08-14] MEDS: ACETAMINOPHEN 325 MG TAB PO PRN ×2 (00:40→04:47)
[2018-08-14] MEDS: DICLOFENAC SOD 1% GEL 100 GM TUBE EXT SCH ×4 (04:50→21:30)
[2018-08-14] MEDS: HydrALAZINE HCL 20 MG/ML VIAL IV SCH ×3 (06:24→21:33)
[2018-08-14 07:21] LABS: BUN Creatinine Ratio 36.1 (10-20); Calcium 8.2 mg/dl (8.5-10.1); Creatinine Clr Calc Pharmacy 62.4 ml/min; Est GFR (African American) 94.2; Est GFR (Non-African American) 81.3; Phosphorus 3.2 mg/dl (2.5-4.9)
--- NOTE | 2018-08-14 09:17 | Surgery Progress Note ---
Date of Service August 14, 2018 pt is doing better, passed gas and BM, pt denies abdominal pain, no nausea, no vomiting, she tolerated clear diet, Assessment & Plan (1) Small bowel obstruction: doing better. passed gas and BM, full liquid diet PT will F/U Subjective still no flatus or bowel movement yet abdominal pain controlled no nausea or vomiting +hungry + belching walked in room and outside of room with PT this morning no shortness of breath or chest pain Constitutional: as per Subjective / HPI Ear, Nose, Mouth, Throat: as per Subjective / HPI Respiratory: as per Subjective / HPI Cardiovascular: as per Subjective / HPI Gastrointestinal: as per Subjective / HPI Genitourinary (Female): + as per Subjective / HPI Neurologic: as per Subjective / HPI Psychiatric: as per Subjective / HPI Endocrine: as per Subjective / HPI Hematologic / Lymphatic: as per Subjective / HPI Physical Exam Vital Signs (Past 24 Hours): Last Vital Signs Temp 36.9 C 08/14/18 07:07 Pulse 101 H 08/14/18 07:07 Resp 18 08/14/18 07:07 BP 150/73 H 08/14/18 07:07 Pulse Ox 95 08/14/18 07:07 Constitutional: WD/WN, vitals as above Neck: trachea midline, no thyromegaly Respiratory: normal respiratory effort, lungs clear to auscultation Cardiovascular: RRR, no murmur, no edema Gastrointestinal (Abdomen): Percussion/Palpation: abdomen soft NT. ND, BS + Neurologic: awake Psychiatric: Orientation: alert and oriented x 3 Results & Data Laboratory Results Abnormal lab results 08/13/18 08/13/18 08/13/18 Range/Units 12:10 17:12 23:03 BUN (7-18) mg/dl BUN/Creatinine Ratio (10-20) Glucose (70-99) mg/dl POC Glucose 123 H 104 H 102 H (70-99) Calcium (8.5-10.1) mg/dl 08/14/18 Range/Units 06:07 BUN 24 H (7-18) mg/dl BUN/Creatinine Ratio 36.1 H (10-20) Glucose 110 H (70-99) mg/dl POC Glucose (70-99) Calcium 8.2 L (8.5-10.1) mg/dl
[2018-08-14] MEDS: IRBESARTAN 150 MG TAB PO SCH (09:28)
[2018-08-14] MEDS: ENOXAPARIN INJ 40 MG/0.4 ML SYR SQ SCH (09:28)
[2018-08-14] MEDS: PANTOprazole 40 MG in SYRINGE 0 ML IV SCH ×2 (09:28→21:33)
[2018-08-14] MEDS: METOPROLOL TARTRATE 100 MG TAB PO SCH ×2 (09:28→21:33)
[2018-08-14] MEDS: POTASSIUM CHLORIDE 20MEQ/15ML 473ML NG SCH ×2 (09:29→10:00)
[2018-08-14] MEDS: POTASSIUM CHLORIDE 10 MEQ TABCR PO SCH (11:06)
--- NOTE | 2018-08-14 12:36 | Hospitalist Progress Note ---
Date of Service August 14, 2018 Assessment & Plan (1) Small bowel obstruction: Failed conservative management s/p ex lap with lysis of adhesions 08/08 defer management to gen surg - NG tube removed 08/14 - advance to full liquid diet per surgery -continue pain control -continue PPN while advancing diet (2) HTN (hypertension): Blood pressure has been high this stay - at times SBP spiking around 180s - no symptoms at this time or end organ damage - initially there was concern for headaches being secondary to blood pressure but these have resolved. -cont metoprolol 100mg po bid -cont scheduled IV hydralazine 10mg IV q8h -continue home irbesartan 300mg daily -she is allergic to ACEi-this was added to allergy list --therefore cannot use IV vasotec -Holding home indapamide while n.p.o. and receiving fluids - may be able to restart tomorrow if taking good po (3) Osteoarthritis of knees, bilateral: Continue Voltaren gel. (4) Hyponatremia: resolved -follow BMP (5) Hypomagnesemia: Resolved (6) Hypokalemia: resolved (7) Chronic kidney disease, stage 3a: Creatinine continues to remain stable -Avoid nephrotoxins -Renally dose medications as necessary (8) Tachycardia: EKG w/ sinus tach no symptoms from this -may be related to pain -continue metoprolol same dose for now (9) Protein calorie malnutrition: with prealbumin 13, no po intake in 9 days -started PPN on 08/10 -Continue PPN while advancing diet (10) Headache: Resolved - Patient normally drinks 1 pot of coffee every day at home and has now not had that her entire hospital stay-this headache is likely a combination of caffeine withdrawal, NG tube in place, and she thinks due to the dry air. - continue acetaminophen prn (11) Oliguria: resolved with IVF (12) DVT prophylaxis: lovenox Dispo- PT/OT are recommending inpatient rehab -Case management consulted for assistance with discharge planning Subjective Ms. Ho is up to a chair. She is feeling better, tolerating clear liquids. Review of Systems All systems reviewed & are unremarkable except as noted in HPI & below Physical Exam Vital Signs (Past 24 Hours): Last Vital Signs Temp 36.9 C 08/14/18 07:07 Pulse 101 H 08/14/18 07:07 Resp 18 08/14/18 07:07 BP 150/73 H 08/14/18 07:07 Pulse Ox 95 08/14/18 07:07 Physical Exam: General: no distress Eyes: normal inspection, PERLL Respiratory: chest non tender, clear to auscultation, normal breath sounds, no respiratory distress, no accessory muscle use Cardiac: regular rate and rhythm, no rub or gallop, no murmur, no edema, no jvd GI/: active bowel sounds, no abd pain or tenderness, soft, non distended Extremities: normal range of motion, normal strength, non tender Neuro/Psych: alert and oriented x 3, normal mood and affect Skin: normal color, dry Results & Data Laboratory Results Abnormal lab results 08/13/18 08/13/18 08/14/18 Range/Units 17:12 23:03 06:07 BUN 24 H (7-18) mg/dl BUN/Creatinine Ratio 36.1 H (10-20) Glucose 110 H (70-99) mg/dl POC Glucose 104 H 102 H (70-99) Calcium 8.2 L (8.5-10.1) mg/dl 08/14/18 Range/Units 12:13 BUN (7-18) mg/dl BUN/Creatinine Ratio (10-20) Glucose (70-99) mg/dl POC Glucose 105 H (70-99) Calcium (8.5-10.1) mg/dl (1) HTN (hypertension) Hypertension type: essential hypertension Qualified Code(s): I10 - Essential (primary) hypertension (2) Osteoarthritis of knees, bilateral Osteoarthritis type: primary Qualified Code(s): M17.0 - Bilateral primary osteoarthritis of knee (3) Protein calorie malnutrition Protein-calorie malnutrition severity: moderate Qualified Code(s): E44.0 - Moderate protein-calorie malnutrition
[2018-08-14 14:17] LABS: Appearance Urine Cloudy (Clear); Bacteria Urine Automated 1+ (Negative); Bilirubin Urine Negative (Negative); Blood Urine Negative (Negative); Color Urine Dark Yellow; Glucose Urine UA Negative (Negative); Ketones Urine Negative (Negative); Leukocyte Esterase Urine 2+ (Negative); Nitrite Urine Positive (Negative); Specific Gravity Urine 1.023 (1.000-1.030); Urobilinogen Urine Negative (Negative); WBC Urine Automated >30 /hpf (0-5); pH Urine 8.5 (4.5-7.5)
[2018-08-14 14:30] LABS: Protein Urine 1+ (Negative)
[2018-08-14] MEDS: DEXTROSE 10% 1,000 ML IV SCH (14:50)
[2018-08-14] MEDS ORDERED: CUSTOM PERIPHERAL PN IV SCH (16:00)
[2018-08-15] MEDS: HydrALAZINE HCL 20 MG/ML VIAL IV SCH ×2 (06:31→14:47)
[2018-08-15 06:32] LABS: Hematocrit (blood only) 36.3 % (37-47); Hemoglobin 12.6 g/dL (12.0-16.0); Mean Corpuscular Hgb Conc 34.7 g/dL (32-36); Mean Corpuscular Volume 92.1 fL (80-100); Platelet Count 318 K/uL (130-400); RDW Coefficient of Variation 14.2 % (11.5-14.5); Red Blood Count 3.94 M/uL (4.2-5.4); White Blood Count 14.96 K/uL (4.8-10.8)
[2018-08-15 07:10] LABS: Calcium 8.3 mg/dl (8.5-10.1); Creatinine Clr Calc Pharmacy 52.2 ml/min; Est GFR (Non-African American) 68.2; Magnesium 2.2 mg/dl (1.8-2.4); Phosphorus 3.2 mg/dl (2.5-4.9); Potassium 4.4 mmol/L (3.5-5.1)
[2018-08-15] MEDS ORDERED: AMLODIPINE BESYLATE 5 MG TAB PO ONE (08:40)
[2018-08-15] MEDS: DICLOFENAC SOD 1% GEL 100 GM TUBE EXT SCH ×4 (09:18→20:23)
[2018-08-15] MEDS: PANTOprazole 40 MG in SYRINGE 0 ML IV SCH ×2 (09:18→09:25)
[2018-08-15] MEDS: ENOXAPARIN INJ 40 MG/0.4 ML SYR SQ SCH (09:18)
[2018-08-15] MEDS: METOPROLOL TARTRATE 100 MG TAB PO SCH ×2 (09:18→20:23)
[2018-08-15] MEDS: POTASSIUM CHLORIDE 10 MEQ TABCR PO SCH (09:19)
[2018-08-15] MEDS: IRBESARTAN 150 MG TAB PO SCH (09:19)
--- NOTE | 2018-08-15 10:40 | Surgery Progress Note ---
Date of Service August 15, 2018 doing fine, she tolerated diet, no nausea, no vomiting, passed gas and BM, WBC 14,000, UA- UTI Assessment & Plan (1) Small bowel obstruction: doing better. passed gas and BM, full liquid diet PT will F/U 08/15/2018 10:40am doing fine, start po antibiotic for UTI per hospitalist, urine culture will F/U Subjective still no flatus or bowel movement yet abdominal pain controlled no nausea or vomiting +hungry + belching walked in room and outside of room with PT this morning no shortness of breath or chest pain Constitutional: as per Subjective / HPI Ear, Nose, Mouth, Throat: as per Subjective / HPI Respiratory: as per Subjective / HPI Cardiovascular: as per Subjective / HPI Gastrointestinal: as per Subjective / HPI Genitourinary (Female): + as per Subjective / HPI Neurologic: as per Subjective / HPI Psychiatric: as per Subjective / HPI Endocrine: as per Subjective / HPI Physical Exam Vital Signs (Past 24 Hours): Last Vital Signs Temp 36.9 C 08/15/18 08:11 Pulse 80 08/15/18 08:11 Resp 15 08/15/18 08:11 BP 154/80 H 08/15/18 10:18 Pulse Ox 94 08/15/18 08:11
[2018-08-15] MEDS ORDERED: Nursing to Pharmacy Communication ONE (10:52)
[2018-08-15] MEDS ORDERED: cefUROXime axetil 500 MG TAB PO ONE (11:15)
[2018-08-15] MEDS: DEXTROSE 10% 1,000 ML IV SCH (13:02)
--- NOTE | 2018-08-15 13:10 | Hospitalist Progress Note ---
Date of Service August 15, 2018 Assessment & Plan (1) Small bowel obstruction: Failed conservative management s/p ex lap with lysis of adhesions 08/08 defer management to gen surg - NG tube removed 08/14 - tolerating full liquid diet -continue pain control -Can discontinue ppn per surgery (2) HTN (hypertension): Blood pressure has been high this stay - at times SBP spiking around 180s - no symptoms at this time or end organ damage - initially there was concern for headaches being secondary to blood pressure but these have resolved. -cont metoprolol 100mg po bid -cont scheduled IV hydralazine 10mg IV q8h -continue home irbesartan 300mg daily -she is allergic to ACEi-this was added to allergy list --therefore cannot use IV vasotec -Holding home indapamide while n.p.o. and receiving fluids - may be able to restart tomorrow if taking good po - given dose of amlodipine this morning which jack pressure down to 150s systolically (3) Osteoarthritis of knees, bilateral: Continue Voltaren gel. (4) Hyponatremia: resolved -follow BMP (5) Hypomagnesemia: Resolved (6) Hypokalemia: resolved (7) Chronic kidney disease, stage 3a: Creatinine continues to remain stable -Avoid nephrotoxins -Renally dose medications as necessary (8) Tachycardia: resolved EKG w/ sinus tach no symptoms from this -may be related to pain -continue metoprolol same dose for now (9) Protein calorie malnutrition: with prealbumin 13, no po intake for 9 days -PPN on 08/10 08/15 -tolerating advancing diet (10) Headache: Resolved - headache is likely a combination of caffeine withdrawal, NG tube in place, and she thinks due to the dry air. - continue acetaminophen prn (11) Oliguria: resolved with IVF (12) DVT prophylaxis: lovenox Dispo- PT/OT are recommending inpatient rehab -Case management consulted for assistance with discharge planning Subjective Up to a chair, tolerating advancing diet. Review of Systems All systems reviewed & are unremarkable except as noted in HPI & below Physical Exam Vital Signs (Past 24 Hours): Last Vital Signs Temp 36.9 C 08/15/18 08:11 Pulse 80 08/15/18 08:11 Resp 15 08/15/18 08:11 BP 154/80 H 08/15/18 10:18 Pulse Ox 94 08/15/18 08:11 Physical Exam: General: no distress Eyes: normal inspection, PERLL Respiratory: chest non tender, clear to auscultation, normal breath sounds, no respiratory distress, no accessory muscle use Cardiac: regular rate and rhythm, no rub or gallop, no murmur, no edema, no jvd GI/: active bowel sounds, no abd pain or tenderness, soft, distended Extremities: normal range of motion, normal strength, non tender Neuro/Psych: alert and oriented x 3, normal mood and affect Skin: normal color, dry, incision well approximated, no drainage, daija intact Results & Data Laboratory Results Abnormal lab results 08/14/18 08/14/18 08/15/18 Range/Units 13:30 17:18 06:15 WBC (4.8-10.8) K/uL RBC (4.2-5.4) M/uL Hct (37-47) % RDW Std Deviation (36.4-46.3) fL BUN (7-18) mg/dl BUN/Creatinine Ratio (10-20) Glucose (70-99) mg/dl POC Glucose 105 H 100 H (70-99) Calcium (8.5-10.1) mg/dl Urine Appearance Cloudy H (Clear) Urine pH 8.5 H (4.5-7.5) Urine Protein 1+ H (Negative) Urine Nitrite Positive H (Negative) Ur Leukocyte Esterase 2+ H (Negative) Urine WBC (Auto) >30 H (0-5) /hpf Urine RBC (Auto) 5-10 H (0-4) /hpf U Hyaline Cast (Auto) 5-10 H (0-5) /lpf U Epithel Cells (Auto) 5-10 H (0-5) /lpf Urine Bacteria (Auto) 1+ H (Negative) 08/15/18 08/15/18 Range/Units 06:16 06:16 WBC 14.96 H (4.8-10.8) K/uL RBC 3.94 L (4.2-5.4) M/uL Hct 36.3 L (37-47) % RDW Std Deviation 48.0 H (36.4-46.3) fL BUN 23 H (7-18) mg/dl BUN/Creatinine Ratio 28.0 H (10-20) Glucose 103 H (70-99) mg/dl POC Glucose (70-99) Calcium 8.3 L (8.5-10.1) mg/dl Urine Appearance (Clear) Urine pH (4.5-7.5) Urine Protein (Negative) Urine Nitrite (Negative) Ur Leukocyte Esterase (Negative) Urine WBC (Auto) (0-5) /hpf Urine RBC (Auto) (0-4) /hpf U Hyaline Cast (Auto) (0-5) /lpf U Epithel Cells (Auto) (0-5) /lpf Urine Bacteria (Auto) (Negative) (1) HTN (hypertension) Hypertension type: essential hypertension Qualified Code(s): I10 - Essential (primary) hypertension (2) Osteoarthritis of knees, bilateral Osteoarthritis type: primary Qualified Code(s): M17.0 - Bilateral primary osteoarthritis of knee (3) Protein calorie malnutrition Protein-calorie malnutrition severity: moderate Qualified Code(s): E44.0 - Moderate protein-calorie malnutrition
[2018-08-15] MEDS: ACETAMINOPHEN 325 MG TAB PO PRN ×2 (17:12→21:56)
[2018-08-15] MEDS: PANTOprazole 40 MG TAB PO SCH (20:23)
[2018-08-15] MEDS: cefUROXime axetil 250 MG TABLET PO SCH (20:23)
[2018-08-16 06:37] LABS: Hematocrit (blood only) 37.8 % (37-47); Hemoglobin 12.6 g/dL (12.0-16.0); Mean Corpuscular Hgb Conc 33.3 g/dL (32-36); Mean Corpuscular Volume 92.6 fL (80-100); Mean Platelet Volume 8.8 fL (7.4-10.4); Platelet Count 332 K/uL (130-400); RDW Coefficient of Variation 14.4 % (11.5-14.5); RDW Standard Deviation 48.5 fL (36.4-46.3); Red Blood Count 4.08 M/uL (4.2-5.4); White Blood Count 14.11 K/uL (4.8-10.8)
[2018-08-16 07:06] LABS: BUN Creatinine Ratio 23.3 (10-20); Calcium 8.4 mg/dl (8.5-10.1); Creatinine Clr Calc Pharmacy 46.4 ml/min; Est GFR (African American) 68.5; Est GFR (Non-African American) 59.1; Potassium 4.2 mmol/L (3.5-5.1)
--- NOTE | 2018-08-16 07:36 | Surgery Progress Note ---
Date of Service August 16, 2018 pt is doing fine, passed gas and stool, pt denies abdominal pain, no nausea, no vomiting, Assessment & Plan (1) Small bowel obstruction: 08/16/2018 7:34AM doing fine, [facility], F/U me in 2 weeks, Subjective still no flatus or bowel movement yet abdominal pain controlled no nausea or vomiting +hungry + belching walked in room and outside of room with PT this morning no shortness of breath or chest pain Constitutional: as per Subjective / HPI Ear, Nose, Mouth, Throat: as per Subjective / HPI Respiratory: as per Subjective / HPI Cardiovascular: as per Subjective / HPI Gastrointestinal: as per Subjective / HPI Genitourinary (Female): + as per Subjective / HPI Neurologic: as per Subjective / HPI Psychiatric: as per Subjective / HPI Endocrine: as per Subjective / HPI Hematologic / Lymphatic: as per Subjective / HPI Physical Exam 2 Vital Signs (Past 24 Hours): Last Vital Signs Temp 36.2 C L 08/15/18 22:04 Pulse 80 08/15/18 22:04 Resp 16 08/15/18 22:04 BP 170/87 H 08/15/18 22:04 Pulse Ox 93 08/15/18 22:04 Constitutional: WD/WN, vitals as above Respiratory: normal respiratory effort, lungs clear to auscultation Cardiovascular: RRR, no murmur, no edema Gastrointestinal (Abdomen): Percussion/Palpation: abdomen soft NT, ND, BS+ Neurologic: awake Psychiatric: Orientation: alert and oriented x 3 Results & Data Laboratory Results labs Abnormal lab results 08/16/18 08/16/18 Range/Units 06:12 06:12 WBC 14.11 H (4.8-10.8) K/uL RBC 4.08 L (4.2-5.4) M/uL RDW Std Deviation 48.5 H (36.4-46.3) fL BUN 21 H (7-18) mg/dl BUN/Creatinine Ratio 23.3 H (10-20) Calcium 8.4 L (8.5-10.1) mg/dl
[2018-08-16] MEDS: IRBESARTAN 150 MG TAB PO SCH (09:31)
[2018-08-16] MEDS: PANTOprazole 40 MG TAB PO SCH ×2 (09:32→20:52)
[2018-08-16] MEDS: POTASSIUM CHLORIDE 10 MEQ TABCR PO SCH (09:32)
[2018-08-16] MEDS: cefUROXime axetil 250 MG TABLET PO SCH (09:32)
[2018-08-16] MEDS: METOPROLOL TARTRATE 100 MG TAB PO SCH ×2 (09:32→20:52)
[2018-08-16] MEDS: DICLOFENAC SOD 1% GEL 100 GM TUBE EXT SCH ×4 (09:32→20:52)
[2018-08-16] MEDS: ENOXAPARIN INJ 40 MG/0.4 ML SYR SQ SCH (09:33)
[2018-08-16] MEDS: AMLODIPINE BESYLATE 5 MG TAB PO SCH (09:36)
--- NOTE | 2018-08-16 10:23 | Hospitalist Progress Note ---
Date of Service August 16, 2018 Assessment & Plan (1) Small bowel obstruction: Failed conservative management s/p ex lap with lysis of adhesions 08/08 defer management to gen surg - NG tube removed 08/14 - tolerating full liquid diet -continue pain control -Can discontinue ppn per surgery (2) HTN (hypertension): Blood pressure has been high this stay - at times SBP spiking around 180s - no symptoms at this time or end organ damage - initially there was concern for headaches being secondary to blood pressure but these have resolved. -cont metoprolol 100mg po bid -discontinue scheduled IV hydralazine 10mg IV q8h -continue home irbesartan 300mg daily -she is allergic to ACEi-this was added to allergy list --therefore cannot use IV vasotec -Restart indapamide - initiated amlodipine 10 mg - patient responded well - will have to consider whether to keep this on at discharge - patient reports that when she checks her blood pressures at home they are generally well controlled with systolic around 140 (3) Osteoarthritis of knees, bilateral: Continue Voltaren gel. (4) Hyponatremia: resolved -follow BMP (5) Hypomagnesemia: Resolved (6) Hypokalemia: resolved (7) Chronic kidney disease, stage 3a: Creatinine continues to remain stable -Avoid nephrotoxins -Renally dose medications as necessary (8) Tachycardia: resolved EKG w/ sinus tach (9) Protein calorie malnutrition: with prealbumin 13, no po intake for 9 days -PPN on 08/10 08/15 -tolerating advancing diet (10) Headache: Resolved - continue acetaminophen prn (11) Oliguria: resolved with IVF (12) DVT prophylaxis: lovenox Dispo- PT/OT are recommending inpatient rehab - [facility] Ms. Ho is having frequent diarrhea now that she is eating which is causing her some distress but otherwise is doing well. No nausea or vomiting Review of Systems All systems reviewed & are unremarkable except as noted in HPI & below Physical Exam Vital Signs (Past 24 Hours): Last Vital Signs Temp 36.6 C 08/16/18 07:39 Pulse 95 H 08/16/18 07:39 Resp 16 08/16/18 07:39 BP 166/84 H 08/16/18 07:39 Pulse Ox 96 08/16/18 07:39 Physical Exam: General: no distress Eyes: normal inspection, PERLL Respiratory: chest non tender, clear to auscultation, normal breath sounds, no respiratory distress, no accessory muscle use Cardiac: regular rate and rhythm, no rub or gallop, no murmur, no edema, no jvd GI/: active bowel sounds, no abd pain or tenderness, soft, distended Extremities: normal range of motion, normal strength, non tender Neuro/Psych: alert and oriented x 3, normal mood and affect Skin: normal color, dry Results & Data Laboratory Results Abnormal lab results 08/16/18 08/16/18 Range/Units 06:12 06:12 WBC 14.11 H (4.8-10.8) K/uL RBC 4.08 L (4.2-5.4) M/uL RDW Std Deviation 48.5 H (36.4-46.3) fL BUN 21 H (7-18) mg/dl BUN/Creatinine Ratio 23.3 H (10-20) Calcium 8.4 L (8.5-10.1) mg/dl (1) HTN (hypertension) Hypertension type: essential hypertension Qualified Code(s): I10 - Essential (primary) hypertension (2) Osteoarthritis of knees, bilateral Osteoarthritis type: primary Qualified Code(s): M17.0 - Bilateral primary osteoarthritis of knee (3) Protein calorie malnutrition Protein-calorie malnutrition severity: moderate Qualified Code(s): E44.0 - Moderate protein-calorie malnutrition
[2018-08-17 06:13] LABS: Hematocrit (blood only) 36.3 % (37-47); Hemoglobin 12.2 g/dL (12.0-16.0); Mean Corpuscular Hgb Conc 33.6 g/dL (32-36); Mean Corpuscular Volume 92.8 fL (80-100); Platelet Count 352 K/uL (130-400); RDW Coefficient of Variation 14.4 % (11.5-14.5); RDW Standard Deviation 48.4 fL (36.4-46.3); Red Blood Count 3.91 M/uL (4.2-5.4); White Blood Count 11.39 K/uL (4.8-10.8)
[2018-08-17 06:48] LABS: BUN Creatinine Ratio 16.9 (10-20); Calcium 8.5 mg/dl (8.5-10.1); Creatinine Clr Calc Pharmacy 46.9 ml/min; Est GFR (African American) 69.5; Est GFR (Non-African American) 59.9; Potassium 3.9 mmol/L (3.5-5.1)
[2018-08-17] MEDS: IRBESARTAN 150 MG TAB PO SCH (08:46)
[2018-08-17] MEDS: POTASSIUM CHLORIDE 10 MEQ TABCR PO SCH (08:48)
[2018-08-17] MEDS: METOPROLOL TARTRATE 100 MG TAB PO SCH (08:49)
[2018-08-17] MEDS: INDAPAMIDE 1.25 MG TAB PO SCH (08:51)
[2018-08-17] MEDS: AMLODIPINE BESYLATE 5 MG TAB PO SCH (08:54)
[2018-08-17] MEDS: PANTOprazole 40 MG TAB PO SCH (08:56)
[2018-08-17] MEDS: DICLOFENAC SOD 1% GEL 100 GM TUBE EXT SCH ×2 (08:58→12:36)
[2018-08-17] MEDS: ENOXAPARIN INJ 40 MG/0.4 ML SYR SQ SCH (09:02)
--- NOTE | 2018-08-17 09:31 | Surgery Progress Note ---
Date of Service August 17, 2018 Assessment & Plan (1) Small bowel obstruction: POD # 9 s/p ex lap, lysis of adhesions for SBO -vitals stable, afebrile -mild leukocytosis of 11k - asymptomatic UTI - + bowel function, tolerating full liquids Plan: Advance diet to soft diet for lunch awaiting auth for SNF placement, okay for discharge from surgical standpoint once authorization Continue current management Follow-up surgical office in [address] Crowell has seen and examined pt, agrees with above Subjective feeling well tolerating full liquids, hungry would like something more today to eat no nausea or vomiting passing gas, small formed bowel movement this morning no abdominal pain, mild discomfort due to binder (had a bigger one made as it was causing skin irritaiton) continues to ambulate and OOB to chair Physical Exam Vital Signs (Past 24 Hours): Last Vital Signs Temp 36.7 C 08/17/18 08:02 Pulse 78 08/16/18 23:17 Resp 12 08/17/18 08:02 BP 170/88 H 08/17/18 08:02 Pulse Ox 92 08/17/18 08:02 Constitutional: WD/WN, vitals as above no acute distress and not ill appearing Respiratory: no respiratory distress Gastrointestinal (Abdomen): Inspection/Auscultation: abdomen normal to inspection; abdomen not distended Percussion/Palpation: abdomen soft; abdomen nontender, no guarding and abdomen not rigid Skin: no rashes, warm and dry + incision (clean/dry/intact, daija intact) Psychiatric: A+Ox3, euthymic affect Results & Data Laboratory Results 08/17/18 08/17/18 Range/Units 05:51 05:51 WBC 11.39 H (4.8-10.8) K/uL RBC 3.91 L (4.2-5.4) M/uL Hgb 12.2 (12.0-16.0) g/dL Hct 36.3 L (37-47) % MCV 92.8 (80-100) fL MCH 31.2 (25-34) pg MCHC 33.6 (32-36) g/dL RDW Std Deviation 48.4 H (36.4-46.3) fL RDW Coeff of Mari 14.4 (11.5-14.5) % Plt Count 352 (130-400) K/uL MPV 9.0 (7.4-10.4) fL Sodium 138 (136-145) mmol/L Potassium 3.9 (3.5-5.1) mmol/L Chloride 107 (98-107) mmol/L Carbon Dioxide 26 (21-32) mmol/L Anion Gap 5.0 (3-11) BUN 15 (7-18) mg/dl Creatinine 0.89 (0.6-1.2) mg/dl Est Cr Clr Drug Dosing 46.9 ml/min Est GFR ( Amer) 69.5 Est GFR (Non-Af Amer) 59.9 BUN/Creatinine Ratio 16.9 (10-20) Glucose 87 (70-99) mg/dl Calcium 8.5 (8.5-10.1) mg/dl
--- NOTE | 2018-08-17 12:04 | Discharge Summary ---
Date of Service August 17, 2018 Admission HPI Per Admitting Provider 82 y/o F c/o abd pain. Pt states this started around 830a today. She states that she was fine yesterday. She has been eating "transportation escort" since it is Lent, avoiding heavy, rich, or sugary foods. She ate her usual diet yesterday, 3 meals. She had no issues with n/v, abd pain, or early satiety. No bloating. She woke up this AM around her usual time and had a bowel movement that was not difficult and was regular, formed stool. She had prunes and coffee and her morning meds and then had sudden onset of sharp abd pain in the upper abd. She felt like she had to pass gas, but could not. She started to feel bloated. When this did not pass she called her daughter to bring her to the ED. Pt denies fever, SOB, chest pain, LE pain or swelling. Pt states she still has some abd pain now, but it is much better than [employer]. Still without n/v. Pt does not like taking morphine and is requesting something more mild for her pain if she needs it. Pt also states that she has great difficulty with her BP and side effects with other BP medications. She would prefer to stay on her home regimen if she is able. Principal Diagnosis SBO with lysis of adhesions Discharge Exam Constitutional WD/WN, vitals as above Respiratory normal respiratory effort, lungs clear to auscultation Cardiovascular RRR, no murmur, no edema Gastrointestinal (Abdomen) Inspection/Auscultation: abdomen normal to inspection and + abdomen distended Percussion/Palpation: + abdomen tender and abdomen soft Skin no rashes, warm and dry Neurologic moves all extremities and awake Psychiatric A+Ox3, euthymic affect Discharge Data Allergies Allergy/AdvReac Type Severity Reaction Status Date / Time Penicillins Allergy Unknown HIVES Verified 08/15/18 11:05 Cipro AdvReac Severe "MADE ME Unverified 03/20/17 02:09 DEATHLY ILL" ciprofloxacin AdvReac Severe Weakness Unverified 08/08/18 16:10 metronidazole AdvReac Severe Weakness Unverified 08/08/18 16:10 lisinopril AdvReac Intermediate Weakness Verified 08/10/18 14:46 Consultations 08/04/18 12:54 ED Decision to Admit Stat 08/04/18 15:14 Consult Case Management - Discharge Planning Routine 08/05/18 12:34 Consult General Surgery Routine 08/08/18 09:58 Consult Cardiology Routine 08/12/18 11:33 Consult Case Management - Discharge Planning Routine Procedures Performed Operation Date: 08/08/18 07:00 Actual Procedures p Exploratory Laparotomy, Lysis of Adhesions - Oskar Crowell MD Ordered Studies 08/04/18 10:40 CT abd pelvis IV con only Stat 08/13/18 09:00 FL small bowel x-ray Routine Hospital Course (1) Small bowel obstruction: Failed conservative management s/p ex lap with lysis of adhesions 08/08 defer management to gen surg - NG tube removed 08/14 - tolerating low fiber diet -continue pain control -PPN discontinued (2) HTN (hypertension): Blood pressure has been high this stay - at times SBP spiking around 180s - no symptoms at this time or end organ damage - initially there was concern for headaches being secondary to blood pressure but these have resolved. Blood pressures have improved a bit sbp 150s-170s. -cont metoprolol 100mg po bid -discontinued scheduled IV hydralazine 10mg IV q8h -continue home irbesartan 300mg daily -continue indapamide -continue home felodipine (3) Osteoarthritis of knees, bilateral: Continue Voltaren gel. (4) Hyponatremia: resolved -follow BMP (5) Hypomagnesemia: Resolved (6) Hypokalemia: resolved (7) Chronic kidney disease, stage 3a: Creatinine continues to remain stable -Avoid nephrotoxins -Renally dose medications as necessary (8) Tachycardia: resolved EKG w/ sinus tach (9) Protein calorie malnutrition: with prealbumin 13, no po intake for 9 days -PPN on 08/10- 08/15 -tolerating advancing diet (10) Headache: Resolved - continue acetaminophen prn (11) Oliguria: resolved with IVF Asymptomatic bacteriuria - patient grew pseudomonas and another gram negative in the urine - has not had any urinary symptoms, will hold off on treating. Discussed s/s of UTI with patient and that we will treat should she develop symptoms. (12) [facility] (13) Asymptomatic bacteriuria: Total Time Total Time Spent Total Time Spent (In Minutes): greater than 30 minutes Discharge Plan Discharge Items Patient Disposition: Transfer Inpatient Rehab Fac Reason For Visit: SBO Discharge Diagnosis: SBO with lysis of adhesions Discharge Goals: Decrease discomfort and Therapeutic intervention Activity: As commented below Non-emergency contact: Primary Care Provider Call non-emergency contact if: you have any medication questions, your symptoms worsen, your pain is not controlled and you have a fever Follow-up/Referrals: Tracie Rush, [Primary Care Provider] - Diet: Low Fiber Addtl Provider Instructions: No heavy lifting over 10 pounds for 6 weeks No strenuous activity until cleared by surgeon No submerging incision underwater for 2 weeks (no bathing, swimming, or hot tubs) No driving while taking pain medication or until you are pain free You may shower, gently clean incision with soap and water and pat dry Surgical daija will be removed in office Walking and light activity is encouraged daily to prevent blood clots from forming in your legs You may take extra strength Tylenol or Ibuprofen as needed for mild pain. Take Ibuprofen with food as it can cause stomach upset and irritation of the stomach lining. To avoid constipation: drink plenty of liquids daily, avoid foods that constipate, daily walking. May take OTC stool softener daily if you are feeling constipated or having hard stools. If those measures do not work and you are still constipated you can take Miralax or Milk of Magnesia. Wear abdominal binder for support with any activity. You may take it off at night time or when sitting in chair. Follow-up in surgical office in 1 week, please call office at [phone] to make an appointment. Prescriptions: Continued trazodone 50 mg tablet 50 mg PO HS RF: 0 metoprolol tartrate 100 mg tablet 100 mg PO BID RF: 0 acetaminophen [Tylenol Extra Strength] 500 mg Tablet 500 mg PO Q6H PRN (Reason: Pain) RF: 0 indapamide 1.25 mg tablet 1.25 mg PO QAM RF: 0 felodipine 10 mg tablet extended release 24 hr 10 mg PO QAM RF: 0 irbesartan 300 mg Tablet 300 mg PO QAM RF: 0 cholecalciferol (vitamin D3) [Vitamin D3] 2,000 unit Tablet 2,000 unit PO QAM RF: 0 Caltrate 600 + D 600 mg (1,500 mg)-800 unit Tablet,Chewable 1 tab PO PM RF: 0 Stand-Alone Forms: [facility] Discharge Orders: Discharge Order (Routine); Ordered 08/17/18 Ordered By: Jessica Monreal Skilled Items Patient informed of condition?: Yes DNR: Yes Discharge Level of Care: Acute rehab Communicable Disease: No Discharge Prognosis: Improving Admission Data Admit Date/Time: 08/04/18 13:54 Attending Provider: Rustam Hernandez Admit Provider: Criss Hooks Primary Care Provider: Tracie Rush Other Providers: Criss Hooks ; Oskar Crowell ; Elmer Maldonado ; Oralia Banuelos ; Home,Nursing Agency Service: Surgical Services Other Pending Studies at Discharge: No
== END 2018-08-17 14:34 | DRG 336 ==
LOC: ED 10:19 → 3N 13:54 → SUATTDRO 13:54 → 3N 14:25

== ENCOUNTER 2019-05-20 07:59 | Inpatient (IN) ==
--- OUTSIDE RECORDS SUMMARY | 2019-05-20 08:02 | External Medical Summary | Continuity of Care Document ---
:1935 Author Name Mary Kate Reid Address Unavailable Unavailable , Care Team Providers Name Role Phone Unavailable Unavailable Unavailable PCP, UNKNOWN Unavailable Unavailable Problems Active medical history not documented Allergies and Adverse Reactions Allergy history not documented Medications Medications not documented Procedures Procedures not documented Immunizations Immunizations not documented Plan of Treatment Planned Observations Planned Goals not documented Results No Known Results Results not documented
--- NOTE | 2019-05-20 08:37 | XRay Report ---
XR chest 1V portable CLINICAL HISTORY: 83 years-old Female presenting with Chest Pain. TECHNIQUE: Portable upright AP view of the chest was obtained. COMPARISON: 08/13/2018. FINDINGS: Atherosclerosis of the aortic arch. Cardiac silhouette enlarged. Lungs are hyperinflated. No focal op acity. No pleural effusion or pneumothorax. Osseous structures normal. Upper abdomen normal. IMPRESSION: 1. Cardiomegaly. No pulmonary edema. 2. Hyperinflation could suggest emphysema or other obstructive lung disease. No focal infiltrate to suggest pneumonia. ACT 112: Negative or not required by law. Electronically signed by: Abhilash Muro M.D. 05/20/2019 8:35 AM
[2019-05-20 09:12] LABS: Basophils # (auto) 0.04 K/uL (0-0.2); Basophils % (auto) 0.4 %; Eosinophils # (auto) 0.18 K/uL (0-0.5); Eosinophils % (auto) 1.6 %; Hemoglobin 13.9 g/dL (12.0-16.0); Immature Granulocytes # (auto) 0.03 K/uL (0.00-0.02); Immature Granulocytes % (auto) 0.3 %; Lymphocytes % (auto) 13.5 %; Mean Corpuscular Hemoglobin 30.5 pg (25-34); Mean Corpuscular Hgb Conc 33.9 g/dL (32-36); Mean Corpuscular Volume 90.1 fL (80-100); Mean Platelet Volume 9.9 fL (7.4-10.4); Monocytes # (auto) 1.09 K/uL (0.11-0.59); Monocytes % (auto) 9.8 %; Neutrophils # (auto) 8.26 K/uL (1.4-6.5); Neutrophils % (auto) 74.4 %; Platelet Count 265 K/uL (130-400); RDW Coefficient of Variation 14.1 % (11.5-14.5); RDW Standard Deviation 46.5 fL (36.4-46.3); Red Blood Count 4.55 M/uL (4.2-5.4)
[2019-05-20] MEDS ORDERED: ACETAMINOPHEN 1,000 MG/100 ML VIAL IV STA (09:15)
[2019-05-20] MEDS ORDERED: IOVERSOL 100ml IV PRN (09:17)
[2019-05-20 09:19] LABS: iSTAT Creatinine 0.8 mg/dl (0.6-1.3); iSTAT Hemoglobin 13.9 g/dl (12.0-16.0); iSTAT Ionized Calcium 1.21 mmol/l (1.12-1.32); iSTAT Potassium 3.2 mEq/L (3.3-5.0)
[2019-05-20 09:43] LABS: Alanine Aminotransferase 14 U/L (12-78); Albumin Level 3.5 gm/dl (3.4-5.0); Aspartate Aminotransferase 16 U/L (15-37); BUN Creatinine Ratio 24.5 (10-20); Blood Urea Nitrogen 19 mg/dl (7-18); Carbon Dioxide 28 mmol/L (21-32); Chloride 104 mmol/L (98-107); Creatinine Clr Calc Pharmacy 52.4 ml/min; Est GFR (African American) 79.7; Est GFR (Non-African American) 68.7; Glucose 109 mg/dl (70-99); Lipase 76 U/L (73-393); Potassium 3.4 mmol/L (3.5-5.1); Sodium 139 mmol/L (136-145)
[2019-05-20 09:45] LABS: Alkaline Phosphatase 94 U/L (45-117); Bilirubin,Total 0.8 mg/dl (0.2-1); Creatine Kinase 71 U/L (26-192); Creatine Kinase MB < 1.0 ng/ml (0.5-3.6); Globulin 3.5 gm/dl (2.5-4.0); Troponin I < 0.015 ng/ml (0-0.045)
[2019-05-20 09:55] LABS: Appearance Urine Clear (Clear); Bacteria Urine Automated Negative (Negative); Bilirubin Urine Negative (Negative); Blood Urine 1+ (Negative); Cast Urine Automated 0 /lpf (0-5); Color Urine Yellow; Epithelial Cell Urine Auto 0-5 /lpf (0-5); Glucose Urine UA Negative (Negative); Ketones Urine Negative (Negative); Leukocyte Esterase Urine Negative (Negative); Nitrite Urine Negative (Negative); RBC Urine Automated 0-4 /hpf (0-4); Specific Gravity Urine 1.013 (1.000-1.030); Urobilinogen Urine Negative (Negative); WBC Urine Automated 0 /hpf (0-5); pH Urine 7.5 (4.5-7.5)
[2019-05-20 10:01] LABS: Protein Urine 2+ (Negative)
--- NOTE | 2019-05-20 10:01 | CT Scan Report ---
CT SCAN OF THE ABDOMEN AND PELVIS WITH IV CONTRAST CLINICAL HISTORY: Generalized abdominal pain. COMPARISON STUDY: Abdominal CT dated 08/04/2018. TECHNIQUE: Following the IV administration of 93 cc of Optiray 320, CT scan of the abdomen and pelvi s is performed from the lung bases to the proximal femora. Images are reviewed in the axial, sagittal , and coronal planes. IV contrast was administered without complication. A dose lowering technique wa s utilized adhering to the principles of ALARA. CT DOSE: 596.47 mGy.cm FINDINGS: Lung bases: The heart is enlarged and without pericardial effusion. There are bilateral fat-containin g Bochdalek hernias. Scarring/atelectasis is seen at the lung bases. No airspace consolidation or ple ural effusion is identified. There is a small hiatal hernia. Liver: The contrast-enhanced liver is normal in size, contour, and attenuation. There is no intrahepa tic biliary ductal dilatation. The hepatic veins and portal veins are patent. Gallbladder: Unremarkable. Spleen: Normal in size and attenuation. Pancreas: Moderately atrophic and grossly unremarkable. Adrenal glands: Unremarkable. Kidneys: The contrast enhanced kidneys demonstrate cortical atrophy and are without hydronephrosis. T he kidneys enhance symmetrically. Abdominal vasculature: The abdominal aorta is normal in course and caliber noting moderate atheroscle rotic calcification. Bowel: There is moderate to advanced colonic diverticulosis. There is wall thickening with pericoloni c inflammation and trace fluid involving the proximal sigmoid colon consistent with acute diverticuli tis. No organized fluid collection is seen to indicate abscess. No bowel obstruction is seen. There i s colonic fecal retention. The appendix is not identified and reported surgically absent Peritoneum: There is no intraperitoneal free air. Trace free fluid is noted in the cul-de-sac. A midl ine surgical scar is noted. Lymphadenopathy: None. Pelvic viscera: The bladder, uterus, and adnexa are normal as visualized. Skeletal structures: The skeletal structures are osteopenic. Mild lumbosacral spondylosis is observed . 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 No lytic or blastic lesions are seen. IMPRESSION: 1. Findings are consistent with acute diverticulitis of the sigmoid colon. 2. No intraperitoneal free air is seen there is no organized fluid collection to suggest abscess. 3. Trace free fluid in the pelvis is nonspecific and likely on a reactive basis. 4. Additional findings as above. ACT 112: Positive. There are findings on this exam that require communication between the performing entity and the patient following Patient Test Result Information Act ([place] Act 112) guidelines. Electronically signed by: Kris Douglass M.D. 05/20/2019 10:00 AM
[2019-05-20 10:02] LABS: Sulfosalicylic Acid Urine Positive (Negative)
[2019-05-20] MEDS ORDERED: ERTAPENEM SODIUM 10 ML IV STA (10:50)
[2019-05-20] MEDS ORDERED: KETOROLAC TROMETHAMINE 15 MG/ML VIAL IV STA (10:53)
--- NOTE | 2019-05-20 11:36 | History & Physical Report ---
Date of Service May 20, 2019 Assessment & Plan (1) Diverticulitis: Patient is acute uncomplicated diverticulitis on CT scan. She is intolerant of oral medications and therefore being admitted for IV antibiotics. Patient was given Invanz in the emergency room which she has she has tolerated so far, will continue this for now. Patient was also given Toradol for pain which was also effective and we can continue. We will keep n.p.o. for now except for ice chips and medications. Can give Zofran as needed for nausea. Patient is known to GI, will consult them for further recommendations. Suspect patient will require colonoscopy once acute infection is resolved, likely as an outpatient. (2) HTN (hypertension): Patient has asymptomatic uncontrolled hypertension. She did not take her medications this morning which is likely why she is hypertensive today. I will continue her oral antihypertensives including felodipine, , irbesartan, and metoprolol. Monitor blood pressure over 24 hours, consider IV antihypertensives as well. History of Present Illness Primary Care Provider: Tracie Rush, This is an 83-year-old female with past medical history of small bowel structure status post ex lap and lysis of adhesions and July 2018, hypertension, diverticulosis that presents today complaining of abdominal pain. Patient is accompanied by family and all are good historians. Patient tells me that she was doing well and she lives at [facility]. She was doing some housework 2 days ago when she had some mild pain in her left flank with radiations to the suprapubic area. She thought she had pulled a muscle did not think much of it. She told me that she did not "feel well "over the next 24 hours but denied any overt fevers, chills, or other GI symptoms. She told me she had 2 bowel movements yesterday that were both normal. She had a holiday dinner at the facility at approximately 1:30p yesterday which she tolerated well without any nausea or vomiting. However, she woke up the next morning and more weak. The pain in her flank had progressed. She had had a previous small bowel obstruction and was afraid that this was the case and present to the emergency room this morning for further evaluation. She denies taking her medications this morning. CT scan shows acute sigmoid diverticulitis which is uncomplicated, patient tells us that she cannot tolerate any oral medications including quinolones and Flagyl. She is therefore being admitted for IV treatment of her acute uncomplicated diverticulitis. Patient seems to have a level anxiety but denies any chest pain, shortness breath, palpitations, fever or chills. She is passing flatus. Allergies Allergy/AdvReac Type Severity Reaction Status Date / Time Penicillins Allergy Unknown HIVES Verified 05/20/19 08:20 Cipro AdvReac Severe "MADE ME Unverified 03/20/17 02:09 DEATHLY ILL" ciprofloxacin AdvReac Severe Weakness Unverified 05/20/19 08:20 metronidazole AdvReac Severe Weakness Unverified 05/20/19 08:20 lisinopril AdvReac Intermediate Weakness Verified 05/20/19 08:20 Home Medications Home Medications Medication Instructions Recorded Confirmed Type Caltrate 600 plus D 1 tab PO PM 08/04/18 05/20/19 History acetaminophen [Tylenol Extra 500 mg PO Q6H PRN 08/04/18 05/20/19 History Strength] cholecalciferol (vitamin D3) 2,000 unit PO QAM 08/04/18 05/20/19 History [Vitamin D3] felodipine 10 mg PO QAM 08/04/18 05/20/19 History indapamide 1.25 mg PO QAM 08/04/18 05/20/19 History irbesartan 300 mg PO QAM 08/04/18 05/20/19 History metoprolol tartrate 100 mg PO BID 08/04/18 05/20/19 History trazodone 50 mg PO HS 08/04/18 05/20/19 History Past Med/Surg History Medical History Cardiomyopathy Chronic kidney disease, stage 3a Diverticulitis (Acute) Fibromyalgia HTN (hypertension) (Chronic) Hypokalemia Hypomagnesemia Hyponatremia Small bowel obstruction Valvular heart disease Surgical History H/O exploratory laparotomy SBO in . History of appendectomy (Resolved) History of section x2 History of laminectomy History of laparoscopy to remove fibroid tumor in uterus Family History Other No pertinent family history Social History Preferred Language: Greenlandic Communication Ability: Effective Beliefs That Will Affect Care: None marital status: / Current Living Situation: Alone Feels Safe at Home: Yes Smoking Status: Never smoker Second Hand Exposure: No ; Hx Alcohol Use: No Hx Substance Use: No Review of Systems Review of Systems: All systems reviewed & are unremarkable except as noted in HPI & below Constitutional: + weakness and + anorexia; no fever and no chills Eyes: as per Subjective / HPI Ear, Nose, Mouth, Throat: as per Subjective / HPI Respiratory: no cough, no chest congestion, no dyspnea, no dyspnea on exertion and no wheezing Cardiovascular: no chest pain, no chest pain with activity, no radiating jaw, neck or arm pain, no dyspnea at rest, no palpitations and no syncope Gastrointestinal: + abdominal pain, + bloating, + cramping and + excessive flatulence; no belching, no heartburn, no nausea, no constipation, no diarrhea/loose stools and no melena Genitourinary: as per Subjective / HPI Neurologic: as per Subjective / HPI Psychiatric: + anxiety Endocrine: as per Subjective / HPI Physical Exam Physical Exam: Gen: AAOx3, NAD HEENT: neck supple, no JVD. MMM. Heart: RR, no murmurs Lungs: clear to auscultation in all melvin Abd: Soft, distended. Some to many in all melvin. Significant tenderness in the left side, mostly in the lower quadrant. Involuntary guarding, no rebound, no rigidity Neuro: awake, alert. Nonfocal Psych: Mild anxiety, otherwise appropriate affect without speech abnormality. Ext: No clubbing, cyanosis, edema Results & Data Vital Signs (Past 12 Hours) Vital Signs Temp Pulse Pulse Resp BP BP Pulse Ox 05/20/19 10:09 95 05/20/19 09:48 86 16 216/112 H 95 05/20/19 08:00 36.7 C 85 16 190/110 H 95 Laboratory Results Laboratory reviewed, patient has a white count of 11.1. With accompanying left shift, mild hypokalemia. Renal function within normal limits. Blood sugar is 112. UA is unremarkable. Diagnostic Findings CT SCAN OF THE ABDOMEN AND PELVIS WITH IV CONTRAST CLINICAL HISTORY: Generalized abdominal pain. COMPARISON STUDY: Abdominal CT dated 08/04/2018. TECHNIQUE: Following the IV administration of 93 cc of Optiray 320, CT scan of the abdomen and pelvis is performed from the lung bases to the proximal femora. Images are reviewed in the axial, sagittal, and coronal planes. IV contrast was administered without complication. A dose lowering technique was utilized adhering to the principles of ALARA. CT DOSE: 596.47 mGy.cm FINDINGS: Lung bases: The heart is enlarged and without pericardial effusion. There are bilateral fat-containing Bochdalek hernias. Scarring/atelectasis is seen at the lung bases. No airspace consolidation or pleural effusion is identified. There is a small hiatal hernia. Liver: The contrast-enhanced liver is normal in size, contour, and attenuation. There is no intrahepatic biliary ductal dilatation. The hepatic veins and portal veins are patent. Gallbladder: Unremarkable. Spleen: Normal in size and attenuation. Pancreas: Moderately atrophic and grossly unremarkable. Adrenal glands: Unremarkable. Kidneys: The contrast enhanced kidneys demonstrate cortical atrophy and are without hydronephrosis. The kidneys enhance symmetrically. Abdominal vasculature: The abdominal aorta is normal in course and caliber noting moderate atherosclerotic calcification. Bowel: There is moderate to advanced colonic diverticulosis. There is wall thickening with pericolonic inflammation and trace fluid involving the proximal sigmoid colon consistent with acute diverticulitis. No organized fluid collection is seen to indicate abscess. No bowel obstruction is seen. There is colonic fecal retention. The appendix is not identified and reported surgically absent Peritoneum: There is no intraperitoneal free air. Trace free fluid is noted in the cul-de-sac. A midline surgical scar is noted. Lymphadenopathy: None. Pelvic viscera: The bladder, uterus, and adnexa are normal as visualized. Skeletal structures: The skeletal structures are osteopenic. Mild lumbosacral spondylosis is observed. 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 No lytic or blastic lesions are seen. IMPRESSION: 1. Findings are consistent with acute diverticulitis of the sigmoid colon. 2. No intraperitoneal free air is seen there is no organized fluid collection to suggest abscess. 3. Trace free fluid in the pelvis is nonspecific and likely on a reactive basis. 4. Additional findings as above. PG Care Time/CCT Total # of Minutes Spent Total Time Spent with Patient: Total time spent is greater than 50% in coordination of care (as documented) at patient's floor/unit and/or counseling patient: (1) HTN (hypertension) Hypertension type: essential hypertension Qualified Code(s): I10 - Essential (primary) hypertension
[2019-05-20] MEDS ORDERED: ONDANSETRON INJ 2 MG/ML 2 ML VIAL IV PRN (13:03)
[2019-05-20] MEDS ORDERED: ZOLPIDEM TARTRATE 5 MG TAB PO PRN (13:03)
[2019-05-20] MEDS ORDERED: ICU PROTOCOL FOR HYPERGLYCEMIA PRN (13:03)
[2019-05-20] MEDS: NSS + 20MEQ KCL 20 MEQ/1,000 ML BAG IV SCH ×2 (14:05→23:29)
--- NOTE | 2019-05-20 14:07 | Emergency Department Note ---
Entered by Larissa Collins acting as a scribe for History of Present Illness General Chief complaint: Abdominal Pain Time Seen by Provider: 05/20/19 08:11 Source: patient History of Present Illness Onset (ago): day(s) 1 Location: abdomen Radiation: abdomen (lower) Pain Consistency: + constant Maximum Pain Intensity: 7 Quality: + other (abdominal pain) The patient is an 83 year old female, with past medical history of diverticulitis and small bowel obstruction, who presents to the Emergency Room with complaints of constant abdominal pain that developed yesterday. The patient reports the pain radiates into her lower abdomen. The patient notes the pain kept her up last night. She states her last bowel movement was yesterday, and she reports she had 2 of them. The patient also notes she has been passing gas. The patient reports she had a bowel obstruction in July. She also reports history of appendectomy and exploratory laparotomy. The patient states she still has her gallbladder. Home Medications Home Medications Medication Instructions Recorded Confirmed Type Caltrate 600 plus D 1 tab PO PM 08/04/18 05/20/19 History acetaminophen [Tylenol Extra 500 mg PO Q6H PRN 08/04/18 05/20/19 History Strength] cholecalciferol (vitamin D3) 2,000 unit PO QAM 08/04/18 05/20/19 History [Vitamin D3] felodipine 10 mg PO QAM 08/04/18 05/20/19 History indapamide 1.25 mg PO QAM 08/04/18 05/20/19 History irbesartan 300 mg PO QAM 08/04/18 05/20/19 History metoprolol tartrate 100 mg PO BID 08/04/18 05/20/19 History trazodone 50 mg PO HS 08/04/18 05/20/19 History Allergies Allergy/AdvReac Type Severity Reaction Status Date / Time Penicillins Allergy Unknown HIVES Verified 05/20/19 08:20 Cipro AdvReac Severe "MADE ME Unverified 03/20/17 02:09 DEATHLY ILL" ciprofloxacin AdvReac Severe Weakness Unverified 05/20/19 08:20 metronidazole AdvReac Severe Weakness Unverified 05/20/19 08:20 lisinopril AdvReac Intermediate Weakness Verified 05/20/19 08:20 Past Med/Surg History Medical History Cardiomyopathy Chronic kidney disease, stage 3a Diverticulitis (Acute) Fibromyalgia HTN (hypertension) (Chronic) Hypokalemia Hypomagnesemia Hyponatremia Small bowel obstruction Valvular heart disease Surgical History H/O exploratory laparotomy SBO in . 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 and A total of 10 systems reviewed and were otherwise negative Physical Exam Vital Signs Vital Signs - 24 hr 05/20/19 08:00 05/20/19 09:48 05/20/19 10:09 Temperature 36.7 C Temperature Source Oral Pulse Rate 85 Pulse Rate [Finger] 86 Respiratory Rate 16 16 Blood Pressure 190/110 H Blood Pressure [Right Arm] 216/112 H Blood Pressure Mean 136 Blood Pressure Mean [Right Arm] 146 Pulse Oximetry 95 95 95 Oxygen Delivery Method Room Air Room Air Room Air Sepsis Recent Fever Within 48 Hours No Sepsis New/Unexplained Change in Mental Status No Sepsis Action Taken by Nursing No Action Required 05/20/19 11:52 Temperature Temperature Source Pulse Rate Pulse Rate [Finger] 80 Respiratory Rate 16 Blood Pressure Blood Pressure [Right Arm] 184/108 H Blood Pressure Mean Blood Pressure Mean [Right Arm] 133 Pulse Oximetry 94 Oxygen Delivery Method Room Air Sepsis Recent Fever Within 48 Hours Sepsis New/Unexplained Change in Mental Status Sepsis Action Taken by Nursing GENERAL: Awake, alert, well-appearing, in no acute distress HENT: Normocephalic, atraumatic. Oropharynx unremarkable. EYES: Normal conjunctiva. Sclera non-icteric. NECK: Supple. No nuchal rigidity. FROM. No JVD. RESPIRATORY: Clear to auscultation. CARDIAC: Regular rate, normal rhythm. Extremities warm and well perfused. Pulses equal. ABDOMEN: Soft, non-distended. Exquisitely tender in left lower quadrant. No rebound or guarding. No masses. Right midline laparotomy scar. RECTAL: Deferred. MUSCULOSKELETAL: Chest examination reveals no tenderness. The back is symmetrical on inspection without obvious abnormality. There is no CVA tenderness to palpation. No joint edema. LOWER EXTREMITIES: Calves are equal size bilaterally and non-tender. No edema. No discoloration. NEURO: Normal sensorium. No sensory or motor deficits noted. SKIN: No rash or jaundice noted. Course Course 0800: Past medical records reviewed. The patient was evaluated in room B7 by Criss [place] Student. A complete history and physical exam was performed. 0825: I evaluated the patient. A complete history and physical exam was performed. 1050: I reviewed the patient's case with Dr. Orozco-[facility] Hospitalist. Dr. Orozco will evaluate the patient for further management. Consultations Consultation #1: I reviewed the patient's case with Dr. Orozco-[facility] Hospitalist. Dr. Orozco will evaluate the patient for further management. Time: 10:50 Administered Medications Acetaminophen (Tylenol) 500 mg PO Q6H PRN PRN Reason: Pain Stop: 06/19/19 13:02 Last Admin: 05/21/19 02:53 Dose: 500 mg Documented by: [id number] Enoxaparin Sodium (Lovenox) 30 mg SQ Q24H [facility] Stop: 06/19/19 13:59 Last Admin: 05/20/19 14:20 Dose: 30 mg Documented by: [id number] Felodipine (Plendil) 10 mg PO QAM [facility] Stop: 06/19/19 13:29 Last Admin: 05/20/19 14:18 Dose: 10 mg Documented by: [id number] Potassium Chloride/Sodium Chloride (Normal Saline W/20 Meq Kcl) 20 meq in 1,000 mls @ 100 mls/hr IV .Q10H [facility] Stop: 06/19/19 13:14 Last Admin: 05/20/19 23:29 Dose: 100 mls/hr Documented by: [id number] Infusion: 05/20/19 23:29 Dose: 100 mls/hr Documented by: [id number] Admin: 05/20/19 14:05 Dose: 100 mls/hr Documented by: [id number] Indapamide (Lozol) 1.25 mg PO QAM [facility] Stop: 06/19/19 13:29 Last Admin: 05/20/19 14:20 Dose: 1.25 mg Documented by: [id number] Ioversol (Optiray 320 100ml) 93 ml IV ONCE PRN PRN Reason: Interaction Checking Stop: 05/24/19 09:16 Last Admin: 05/20/19 09:17 Dose: 93 ml Documented by: [id number] Irbesartan (Avapro) 300 mg PO QAM [facility] Stop: 06/19/19 13:29 Last Admin: 05/20/19 14:20 Dose: 300 mg Documented by: [id number] Metoprolol Tartrate (Lopressor) 100 mg PO BID [facility] Stop: 06/19/19 13:29 Last Admin: 05/20/19 20:55 Dose: 100 mg Documented by: [id number] Admin: 05/20/19 14:20 Dose: 100 mg Documented by: [id number] Multivitamins/Minerals (Caltrate Plus) 1 tab PO PM JJ Stop: 06/19/19 20:59 Last Admin: 05/20/19 20:55 Dose: 1 tab Documented by: [id number] Trazodone HCl (Desyrel) 50 mg PO HS [facility] Stop: 06/19/19 20:59 Last Admin: 05/20/19 20:53 Dose: 50 mg Documented by: [id number] Discontinued Medications Acetaminophen (Ofirmev) 1,000 mg in 100 mls @ 400 mls/hr IV NOW STA Stop: 05/20/19 09:29 Last Infusion: 05/20/19 10:05 Dose: 0 mls/hr Documented by: [id number] Admin: 05/20/19 09:47 Dose: 400 mls/hr Documented by: [id number] Ertapenem (Invanz) 10 mls @ 2 mls/min IV NOW STA Stop: 05/20/19 10:54 Last Admin: 05/20/19 11:07 Dose: 2 mls/min Documented by: [id number] Ketorolac Tromethamine (Toradol) 15 mg IV NOW STA Stop: 05/20/19 10:54 Last Admin: 05/20/19 11:07 Dose: 15 mg Documented by: [id number] Medical Decision Making Differential Diagnosis Differential diagnosis: Etiologies such as appendicitis, diverticulitis, PUD, biliary pathology, UTI, pancreatitis, obstruction, mesenteric ischemia, aortic pathology, infections, inflammatory bowel disease, renal colic, as well as others were entertained. Medical Records Attestation: I reviewed the patient's medical records. Home Medications Current Medication List: was personally reviewed by me Laboratory Data Attestation: I reviewed the patient's lab results. Result diagrams: 05/20/19 08:58 05/20/19 08:58 Lab Results 05/20/19 05/20/19 05/20/19 Range/Units 08:58 08:58 09:03 WBC 11.10 H (4.8-10.8) K/uL RBC 4.55 (4.2-5.4) M/uL Hgb 13.9 (12.0-16.0) g/dL POC Hgb 13.9 (12.0-16.0) g/dl Hct 41.0 (37-47) % POC Hct 41 (37-47) % MCV 90.1 (80-100) fL MCH 30.5 (25-34) pg MCHC 33.9 (32-36) g/dL RDW Std Deviation 46.5 H (36.4-46.3) fL RDW Coeff of Mari 14.1 (11.5-14.5) % Plt Count 265 (130-400) K/uL MPV 9.9 (7.4-10.4) fL Immature Gran % (Auto) 0.3 % Neut % (Auto) 74.4 % Lymph % (Auto) 13.5 % Waldo % (Auto) 9.8 % Eos % (Auto) 1.6 % Baso % (Auto) 0.4 % Immature Gran # (Auto) 0.03 H (0.00-0.02) K/uL Neut # (Auto) 8.26 H (1.4-6.5) K/uL Lymph # (Auto) 1.50 (1.2-3.4) K/uL [place] # (Auto) 1.09 H (0.11-0.59) K/uL Eos # (Auto) 0.18 (0-0.5) K/uL Baso # (Auto) 0.04 (0-0.2) K/uL POC Sodium 140 (135-144) mEq/L Sodium 139 (136-145) mmol/L POC Potassium 3.2 L (3.3-5.0) mEq/L Potassium 3.4 L (3.5-5.1) mmol/L POC Chloride 101 (101-112) mEq/L Chloride 104 (98-107) mmol/L Carbon Dioxide 28 (21-32) mmol/L POC Total CO2 30 (24-31) mEq/l Anion Gap 7.0 (3-11) POC Anion Gap 13.0 L (16-25) mmol/L POC BUN 21 H (7-18) mg/dl BUN 19 H (7-18) mg/dl Creatinine 0.79 (0.6-1.2) mg/dl POC Creatinine 0.8 (0.6-1.3) mg/dl Est Cr Clr Drug Dosing 52.4 ml/min Est GFR ( Amer) 79.7 Est GFR (Non-Af Amer) 68.7 BUN/Creatinine Ratio 24.5 H (10-20) Glucose 109 H (70-99) mg/dl POC Glucose (other) 112 H (70-99) mg/dl Calcium 10.0 (8.5-10.1) mg/dl POC Ioniz Calcium Lauri 1.21 (1.12-1.32) mmol/l Total Bilirubin 0.8 (0.2-1) mg/dl AST 16 (15-37) U/L ALT 14 (12-78) U/L Alkaline Phosphatase 94 (45-117) U/L Total Creatine Kinase 71 (26-192) U/L CK-MB (CK-2) < 1.0 (0.5-3.6) ng/ml Troponin I < 0.015 (0-0.045) ng/ml Total Protein 7.0 (6.4-8.2) gm/dl Albumin 3.5 (3.4-5.0) gm/dl Globulin 3.5 (2.5-4.0) gm/dl Albumin/Globulin Ratio 1.0 (0.9-2) Lipase 76 (73-393) U/L Specimen Hemolysis Urine Color Urine Appearance (Clear) Urine pH (4.5-7.5) Ur Specific [place] (1.000-1.030) Urine Protein (Negative) Urine Glucose (UA) (Negative) Urine Ketones (Negative) Urine Blood (Negative) Urine Nitrite (Negative) Urine Bilirubin (Negative) Urine Urobilinogen (Negative) Ur Leukocyte Esterase (Negative) Urine WBC (Auto) (0-5) /hpf Urine RBC (Auto) (0-4) /hpf U Hyaline Cast (Auto) (0-5) /lpf U Epithel Cells (Auto) (0-5) /lpf Urine Bacteria (Auto) (Negative) 05/20/19 Range/Units 09:37 WBC (4.8-10.8) K/uL RBC (4.2-5.4) M/uL Hgb (12.0-16.0) g/dL POC Hgb (12.0-16.0) g/dl Hct (37-47) % POC Hct (37-47) % MCV (80-100) fL MCH (25-34) pg MCHC (32-36) g/dL RDW Std Deviation (36.4-46.3) fL RDW Coeff of Mari (11.5-14.5) % Plt Count (130-400) K/uL MPV (7.4-10.4) fL Immature Gran % (Auto) % Neut % (Auto) % Lymph % (Auto) % [place] % (Auto) % Eos % (Auto) % Baso % (Auto) % Immature Gran # (Auto) (0.00-0.02) K/uL Neut # (Auto) (1.4-6.5) K/uL Lymph # (Auto) (1.2-3.4) K/uL [place] # (Auto) (0.11-0.59) K/uL Eos # (Auto) (0-0.5) K/uL Baso # (Auto) (0-0.2) K/uL POC Sodium (135-144) mEq/L Sodium (136-145) mmol/L POC Potassium (3.3-5.0) mEq/L Potassium (3.5-5.1) mmol/L POC Chloride (101-112) mEq/L Chloride (98-107) mmol/L Carbon Dioxide (21-32) mmol/L POC Total CO2 (24-31) mEq/l Anion Gap (3-11) POC Anion Gap (16-25) mmol/L POC BUN (7-18) mg/dl BUN (7-18) mg/dl Creatinine (0.6-1.2) mg/dl POC Creatinine (0.6-1.3) mg/dl Est Cr Clr Drug Dosing ml/min Est GFR ( Amer) Est GFR (Non-Af Amer) BUN/Creatinine Ratio (10-20) Glucose (70-99) mg/dl POC Glucose (other) (70-99) mg/dl Calcium (8.5-10.1) mg/dl POC Ioniz Calcium Lauri (1.12-1.32) mmol/l Total Bilirubin (0.2-1) mg/dl AST (15-37) U/L ALT (12-78) U/L Alkaline Phosphatase (45-117) U/L Total Creatine Kinase (26-192) U/L CK-MB (CK-2) (0.5-3.6) ng/ml Troponin I (0-0.045) ng/ml Total Protein (6.4-8.2) gm/dl Albumin (3.4-5.0) gm/dl Globulin (2.5-4.0) gm/dl Albumin/Globulin Ratio (0.9-2) Lipase (73-393) U/L Specimen Hemolysis Urine Color Yellow Urine Appearance Clear (Clear) Urine pH 7.5 (4.5-7.5) Ur Specific [place] 1.013 (1.000-1.030) Urine Protein 2+ H (Negative) Urine Glucose (UA) Negative (Negative) Urine Ketones Negative (Negative) Urine Blood 1+ H (Negative) Urine Nitrite Negative (Negative) Urine Bilirubin Negative (Negative) Urine Urobilinogen Negative (Negative) Ur Leukocyte Esterase Negative (Negative) Urine WBC (Auto) 0 (0-5) /hpf Urine RBC (Auto) 0-4 (0-4) /hpf U Hyaline Cast (Auto) 0 (0-5) /lpf U Epithel Cells (Auto) 0-5 (0-5) /lpf Urine Bacteria (Auto) Negative (Negative) Imaging Data Radiologist's Impression: Radiology results as stated below per my review and th e radiologist's interpretation: XR chest 1V portable CLINICAL HISTORY: 83 years-old Female presenting with Chest Pain. TECHNIQUE: Portable upright AP view of the chest was obtained. COMPARISON: 08/13/2018. FINDINGS: Atherosclerosis of the aortic arch. Cardiac silhouette enlarged. Lungs are hyperinflated. No focal opacity. No pleural effusion or pneumothorax. Osseous st ructures normal. Upper abdomen normal. IMPRESSION: 1. Cardiomegaly. No pulmonary edema. 2. Hyperinflation could suggest emphysema or other obstructive lung disease. No focal infiltrate to suggest pneumonia. ACT 112: Negative or not required by law. Electronically signed by: Abhilash Muro M.D. 05/20/2019 8:[address] SCAN OF THE ABDOMEN AND PELVIS WITH IV CONTRAST CLINICAL HISTORY: Generalized abdominal pain. COMPARISON STUDY: Abdominal CT dated 08/04/2018. TECHNIQUE: Following the IV administration of 93 cc of Optiray 320, CT scan of the abdomen and pelvis is performed from the lung bases to the proximal femora. Images are reviewed in the axial, sagittal, and coronal planes. IV contrast was administered without complication. A dose lowering technique was utilized adhering to the principles of ALARA. CT DOSE: 596.47 mGy.cm FINDINGS: Lung bases: The heart is enlarged and without pericardial effusion. There are bilateral fat-containing Bochdalek hernias. Scarring/atelectasis is seen at the lung bases. No airspace consolidation or pleural effusion is identified. There is a small hiatal hernia. Liver: The contrast-enhanced liver is normal in size, contour, and attenuation. There is no intrahepatic biliary ductal dilatation. The hepatic veins and portal veins are patent. Gallbladder: Unremarkable. Spleen: Normal in size and attenuation. Pancreas: Moderately atrophic and grossly unremarkable. Adrenal glands: Unremarkable. Kidneys: The contrast enhanced kidneys demonstrate cortical atrophy and are without hydronephrosis. The kidneys enhance symmetrically. Abdominal vasculature: The abdominal aorta is normal in course and caliber no ting moderate atherosclerotic calcification. Bowel: There is moderate to advanced colonic diverticulosis. There is wall thickening with pericolonic inflammation and trace fluid involving the proximal sigmoid colon consistent with acute diverticulitis. No organized fluid collection is seen to indicate abscess. No bowel obstruction is seen. There is colonic fecal retention. The appendix is not identified and reported surgically absent Peritoneum: There is no intraperitoneal free air. Trace free fluid is noted in the cul-de-sac. A midline surgical scar is noted. Lymphadenopathy: None. Pelvic viscera: The bladder, uterus, and adnexa are normal as visualized. Skeletal structures: The skeletal structures are osteopenic. Mild lumbosacral spondylosis is observed. 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 No lytic or blastic lesions are seen. IMPRESSION: 1. Findings are consistent with acute diverticulitis of the sigmoid colon. 2. No intraperitoneal free air is seen there is no organized fluid collection to suggest abscess. 3. Trace free fluid in the pelvis is nonspecific and likely on a reactive basis. 4. Additional findings as above. ACT 112: Positive. There are findings on this exam that require communication between the performing entity and the patient following Patient Test Result Information Act ([place] Act 112) guidelines. Electronically signed by: Kris Douglass M.D. 05/20/2019 10:00 AM ECG Data Attestation: I personally reviewed and interpreted this ECG as follows: Indication: + abdominal pain Rate (beats per minute): 74 Rhythm: + normal sinus ECG Intervals/blocks: + Normal QT-c (430) ECG [place]: + Left axis deviation ECG ST segments: no ST depression and no ST elevation Blood Pressure Blood Pressure Findings: Elevated blood pressure Blood Pressure Disposition: further management by hospitalist MDM Narrative This is an 83-year-old female who presents emergency department complaining of left lower quadrant abdominal pain. Patient has a history of diverticulitis small bowel obstruction. Using shared medical decision making with the patient the decision was made to send the patient for CAT scan the abdomen pelvis. This was concerning for diverticulitis. Patient does have an elevation in her white blood cell count. Patient is unable to take oral antibiotics therefore she was started on IV. She was given IV or troponin here in the emergency department. She was discussed with the hospitalist service who did agree to admit the patient. Patient was in agreement with the treatment plan. Impression & Plan Diverticulitis, Abdominal pain Discharge Plan Visit Data *Final* Discharge Date/Time: 05/20/19 12:40 Chief Complaint: Abdominal Pain ED Provider: Toby Lau Discharge Problem: Diverticulitis, Abdominal pain Patient Disposition: Admitted As Inpatient Discharge Instructions Interventions: ED Discharge Assessment Last Done: 05/20/19 12:40 Discharge Problem: Abdominal pain Qualifiers: Abdominal location: left lower quadrant Qualified Code(s): R10.32 - Left lower quadrant pain The scribe's documentation has been prepared under my direction and personally reviewed by me in its entirety. I confirm that the note above accurately reflects all work, treatment, procedures, and medical decision making performed by me.
[2019-05-20] MEDS: FELODIPINE 5 MG TABCR PO SCH (14:18)
[2019-05-20] MEDS: ENOXAPARIN INJ 30 MG/0.3 ML SYR SQ SCH (14:20)
[2019-05-20] MEDS: METOPROLOL TARTRATE 100 MG TAB PO SCH ×2 (14:20→20:55)
[2019-05-20] MEDS: IRBESARTAN 150 MG TAB PO SCH (14:20)
[2019-05-20] MEDS: INDAPAMIDE 1.25 MG TAB PO SCH (14:20)
--- NOTE | 2019-05-20 16:00 | Progress Note ---
DATE: 05/20/2019 REASON FOR EVALUATION: Acute diverticulitis. HISTORY OF PRESENT ILLNESS: The patient is an 83-year-old who presented to the hospital today with left lower quadrant pain with onset last evening. The patient states that the pain was progressively worse and was causing her to urinate frequently. She has had I think 4 bouts of diverticulitis when she lived in [place] and then since she moved to the [facility] several years ago, this is about her third bout of diverticulitis. She did have surgery for adhesions, but it took her a long time to recover and she is not enthusiastic about having any surgery in her abdomen again in the future unless it is absolutely necessary. She did have a colonoscopy in 04/2017 two years ago and had extensive left-sided diverticulosis and a small tubular adenoma that was removed. Repeat exam was not recommended for 5 years, which would be in 2021. Since being admitted, she has had a uncomplicated inflammation of the proximal sigmoid colon on CT scan and has been started on a dose of antibiotic in the Emergency Room. Unfortunately, the patient has had multiple intolerances to antibiotics and it has been difficult to find ones that she cannot tolerate. She has had adverse reactions to PENICILLIN, CIPRO, METRONIDAZOLE. PAST MEDICAL HISTORY: Remarkable for cardiomyopathy, chronic kidney disease, diverticulosis, fibromyalgia, hypertension, hypokalemia, hypomagnesemia, small-bowel obstruction, valvular heart disease. She has had exploratory laparotomy, appendectomy, 2 C-sections and a laminectomy. MEDICATIONS: Include vitamin D and calcium, felodipine, indapamide, irbesartan, metoprolol and trazodone. FAMILY HISTORY: Noncontributory. SOCIAL HISTORY: The patient is a , lives alone, does not smoke or drink alcohol. REVIEW OF SYSTEMS: Positive for abdominal pain and some anxiety and weakness. Remainder is negative. PHYSICAL EXAMINATION: GENERAL: The patient is awake, alert, in no acute distress. VITAL SIGNS: Blood pressure is 185/100. ABDOMEN: Shows some midline scar. There is some tenderness in the left lower quadrant. No mass or rebound. IMPRESSION: The patient has left-sided sigmoid diverticulitis with no complications. She does have multiple antibiotic intolerances and I would recommend an infectious disease consult for recommendations and guidelines on antibiotic treatment both inpatient and outpatient. We will put her on a full liquid diet for now and then as she improves, we can advance her to a low fiber diet. Colonoscopy is not indicated currently. Dr. Moore is covering for the remainder of the week.
[2019-05-20] MEDS: TRAZODONE HCL 50 MG TAB PO SCH (20:53)
[2019-05-20] MEDS: CALCIUM 600MG + VIT D 400 IU TAB PO SCH (20:55)
[2019-05-21] MEDS: ACETAMINOPHEN 500 MG TAB PO PRN (02:53)
[2019-05-21] MEDS: INDAPAMIDE 1.25 MG TAB PO SCH (08:07)
[2019-05-21] MEDS: METOPROLOL TARTRATE 100 MG TAB PO SCH ×2 (08:07→20:11)
[2019-05-21] MEDS: IRBESARTAN 150 MG TAB PO SCH (08:07)
[2019-05-21] MEDS: NSS + 20MEQ KCL 20 MEQ/1,000 ML BAG IV SCH ×2 (08:08→18:00)
[2019-05-21] MEDS: CHOLECALCIFEROL 1,000 UNITS 25 MCG TAB PO SCH (08:08)
[2019-05-21] MEDS: FELODIPINE 5 MG TABCR PO SCH (08:08)
--- NOTE | 2019-05-21 09:23 | Infectious Disease Consult ---
Date of Consultation May 21, 2019 Assessment & Plan (1) Diverticulitis: can continue ertapenem, 14 days. If able can complete course of IV abx at home. will need picc line and insurance approval. discussed with primary service. I will be away until 06/03/2019, if any ID needs arise, may require transfer. History of Present Illness Attending Physician: Irwin Moralse MD pt admitted with abd pain, ct in ER revealed sigmoid diverticulitis, no abscess. she was admitted and started on IV ertapenem, tolerating well. states she can not take any po abx. feeling much better, eating, min llq pain today but improv ed. no f/c. wbc 11, creat 0.7, UA negative.afebrile since admission. ID consulted for IV abx. no cp, sob, cough. Allergies Allergy/AdvReac Type Severity Reaction Status Date / Time Penicillins Allergy Unknown HIVES Verified 05/20/19 08:20 Cipro AdvReac Severe "MADE ME Unverified 03/20/17 02:09 DEATHLY ILL" ciprofloxacin AdvReac Severe Weakness Unverified 05/20/19 08:20 metronidazole AdvReac Severe Weakness Unverified 05/20/19 08:20 lisinopril AdvReac Intermediate Weakness Verified 05/20/19 08:20 Home Medications Home Medications Medication Instructions Recorded Confirmed Type Caltrate 600 plus D 1 tab PO PM 08/04/18 05/20/19 History acetaminophen [Tylenol Extra 500 mg PO Q6H PRN 08/04/18 05/20/19 History Strength] cholecalciferol (vitamin D3) 2,000 unit PO QAM 08/04/18 05/20/19 History [Vitamin D3] felodipine 10 mg PO QAM 08/04/18 05/20/19 History indapamide 1.25 mg PO QAM 08/04/18 05/20/19 History irbesartan 300 mg PO QAM 08/04/18 05/20/19 History metoprolol tartrate 100 mg PO BID 08/04/18 05/20/19 History trazodone 50 mg PO HS 08/04/18 05/20/19 History Patient History Medical History Cardiomyopathy Chronic kidney disease, stage 3a Diverticulitis (Acute) Fibromyalgia HTN (hypertension) (Chronic) Hypokalemia Hypomagnesemia Hyponatremia Small bowel obstruction Valvular heart disease Surgical History H/O exploratory laparotomy SBO in . 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: No Beliefs That Will Affect Care: None marital status: / Current Living Situation: Alone Other Information That Helps Us Care for You: No Feels Safe at Home: Yes Safety Concerns: Feels Safe At This Time Smoking Status: Former smoker Tobacco Type: cigarettes ; Do You Dip or Chew Tobacco: No ; Smoking End Date: 1967 ; Second Hand Exposure: No ; Tobacco Cessation Education Requested by Patient: No Hx Alcohol Use: No Hx Substance Use: No Review of Systems Review of Systems: All systems reviewed & are unremarkable except as noted in HPI & below Physical Exam Constitutional: WD/WN, vitals as above Eyes: PERRL, conjunctivae normal, anicteric sclerae ENMT: external ear and nose normal, oropharynx normal Neck: normal visual inspection Respiratory: normal respiratory effort, lungs clear to auscultation Cardiovascular: RRR, no murmur, no edema Gastrointestinal (Abdomen): normal bowel sounds, soft, nontender, no hepatosplenomegaly Musculoskeletal: no cyanosis or clubbing, extremities motor strength 5/5 Skin: no rashes, warm and dry Psychiatric: A+Ox3, euthymic affect Results & Data Vital Signs (Past 12 Hours) Vital Signs Temp Pulse Pulse Resp BP Pulse Ox 05/21/19 07:03 36.6 C 82 20 175/88 H 95 05/21/19 03:45 36.5 C 75 20 163/93 H 92 05/20/19 23:42 67 05/20/19 23:19 37.1 C 71 20 154/81 H 94 PG Care Time/CCT Total # of Minutes Spent Total Time Spent with Patient: Total time spent is greater than 50% in coordination of care (as documented) at patient's floor/unit and/or counseling patient:
[2019-05-21] MEDS: ERTAPENEM SODIUM 1,000 MG in SODIUM CHLORIDE 0.9% 50 ML IV SCH (11:48)
--- NOTE | 2019-05-21 13:05 | Gastroenterology Progress Note ---
Date of Service May 21, 2019 Assessment & Plan (1) Diverticulitis: Clinically improved. Per ID need IV abx 14 days. Tomorrow could advance to low fiber diet as tolerated and stay on that for 2 weeks after completion of abx. Will sign off. Please call for further questions. Subjective cc abd pain HPI Pt states her abd pain has improved. Only bothers her when examined. Bowels moving. Has a lot of gas. Tolerating full liquid diet. Review of Systems Respiratory: no dyspnea Cardiovascular: no chest pain Results & Data Vital Signs (Past 12 Hours) Vital Signs Temp Pulse Pulse Resp BP Pulse Ox 05/21/19 11:14 36.5 C 71 19 136/72 94 05/21/19 08:00 70 05/21/19 07:03 36.6 C 82 20 175/88 H 95 05/21/19 03:45 36.5 C 75 20 163/93 H 92
--- NOTE | 2019-05-21 13:05 | Gastroenterology Progress Note ---
Date of Service May 21, 2019 Results & Data Vital Signs (Past 12 Hours) Vital Signs Temp Pulse Pulse Resp BP Pulse Ox 05/21/19 11:14 36.5 C 71 19 136/72 94 05/21/19 08:00 70 05/21/19 07:03 36.6 C 82 20 175/88 H 95 05/21/19 03:45 36.5 C 75 20 163/93 H 92
[2019-05-21] MEDS: ENOXAPARIN INJ 30 MG/0.3 ML SYR SQ SCH (13:52)
--- NOTE | 2019-05-21 14:00 | Hospitalist Progress Note ---
Date of Service May 21, 2019 Assessment & Plan (1) Diverticulitis: CT a/p on 05/20 showed "acute diverticulitis of the sigmoid colon." - Continue ertapenem x 14 days total (End date: 06/03/2019) - GI following - Discussed with ID today. - The patient was somewhat concerned about having a midline/PICC and was unsure who would help with the IV abx at home. CM consulted. (2) HTN (hypertension): BP today is improved while on her medications. - Continue home meds: felodipine, indapamide, irbesartan, and metoprolol (3) Chronic kidney disease, stage 3a: Baseline Cr ~0.8, eGFR ~70. - Presently at baseline. - Monitor (4) DVT prophylaxis: Lovenox 30mg SC daily Subjective Feeling better today, though she has some continued residual pain in the left flank/RLQ. Reports no fevers/chills, chest pain, shortness of breath, nausea, or vomiting. Physical Exam Constitutional: WD/WN, vitals as above Eyes: EOM intact bilaterally; no conjunctival abnormality ENMT: external ear and nose normal, oropharynx normal Neck: trachea midline, no thyromegaly normal visual inspection Respiratory: normal respiratory effort, lungs clear to auscultation no respiratory distress Cardiovascular: RRR, no murmur, no edema Gastrointestinal (Abdomen): Inspection/Auscultation: abdomen normal to inspection and normal bowel sounds; abdomen not distended Percussion/Palpation: + abdomen tender (RLQ) and abdomen soft; no guarding and abdomen not rigid Musculoskeletal: no cyanosis or clubbing, extremities motor strength 5/5 Skin: no rashes, warm and dry Neurologic: moves all extremities and awake Psychiatric: Orientation: alert, oriented to person and cooperative Results & Data Vital Signs (Past 12 Hours) Vital Signs Temp Pulse Pulse Resp BP Pulse Ox 05/21/19 11:14 36.5 C 71 19 136/72 94 05/21/19 08:00 70 05/21/19 07:03 36.6 C 82 20 175/88 H 95 05/21/19 03:45 36.5 C 75 20 163/93 H 92 PG Care Time/CCT Total # of Minutes Spent Total Time Spent with Patient: Total time spent is greater than 50% in coordination of care (as documented) at patient's floor/unit and/or counseling patient: (1) HTN (hypertension) Hypertension type: essential hypertension Qualified Code(s): I10 - Essential (primary) hypertension
[2019-05-21] MEDS ORDERED: POLYETHYLENE (MIRALAX) 17 GM PACK PO PRN (14:01)
[2019-05-21] MEDS: CALCIUM 600MG + VIT D 400 IU TAB PO SCH (20:11)
[2019-05-21] MEDS: TRAZODONE HCL 50 MG TAB PO SCH (20:11)
[2019-05-22] MEDS: NSS + 20MEQ KCL 20 MEQ/1,000 ML BAG IV SCH ×3 (03:03→22:36)
[2019-05-22 06:06] LABS: Basophils # (auto) 0.03 K/uL (0-0.2); Basophils % (auto) 0.5 %; Eosinophils # (auto) 0.42 K/uL (0-0.5); Eosinophils % (auto) 7.5 %; Hematocrit (blood only) 37.3 % (37-47); Hemoglobin 12.4 g/dL (12.0-16.0); Immature Granulocytes # (auto) 0.01 K/uL (0.00-0.02); Immature Granulocytes % (auto) 0.2 %; Lymphocytes % (auto) 25.1 %; Mean Corpuscular Hemoglobin 30.2 pg (25-34); Mean Corpuscular Hgb Conc 33.2 g/dL (32-36); Mean Corpuscular Volume 90.8 fL (80-100); Mean Platelet Volume 9.5 fL (7.4-10.4); Monocytes # (auto) 0.79 K/uL (0.11-0.59); Monocytes % (auto) 14.2 %; Neutrophils # (auto) 2.92 K/uL (1.4-6.5); Neutrophils % (auto) 52.5 %; Platelet Count 243 K/uL (130-400); RDW Standard Deviation 46.4 fL (36.4-46.3); Red Blood Count 4.11 M/uL (4.2-5.4); White Blood Count 5.57 K/uL (4.8-10.8)
[2019-05-22 06:39] LABS: Albumin Globulin Ratio 0.9 (0.9-2); Albumin Level 2.7 gm/dl (3.4-5.0); BUN Creatinine Ratio 15.4 (10-20); Bilirubin,Total 0.5 mg/dl (0.2-1); Calcium 8.7 mg/dl (8.5-10.1); Creatinine Clr Calc Pharmacy 59.4 ml/min; Est GFR (African American) 93.1; Est GFR (Non-African American) 80.3; Globulin 3.1 gm/dl (2.5-4.0); Potassium 3.6 mmol/L (3.5-5.1); Total Protein 5.8 gm/dl (6.4-8.2)
[2019-05-22] MEDS: IRBESARTAN 150 MG TAB PO SCH (08:00)
[2019-05-22] MEDS: INDAPAMIDE 1.25 MG TAB PO SCH (08:00)
[2019-05-22] MEDS: FELODIPINE 5 MG TABCR PO SCH (08:00)
[2019-05-22] MEDS: CHOLECALCIFEROL 1,000 UNITS 25 MCG TAB PO SCH (08:00)
[2019-05-22] MEDS: METOPROLOL TARTRATE 100 MG TAB PO SCH ×2 (08:01→19:14)
[2019-05-22] MEDS: ERTAPENEM SODIUM 1,000 MG in SODIUM CHLORIDE 0.9% 50 ML IV SCH (10:24)
[2019-05-22] MEDS: ENOXAPARIN INJ 30 MG/0.3 ML SYR SQ SCH (12:39)
[2019-05-22] MEDS: LACTOBACILLUS ACIDOPHILUS 1 GM PACK PO SCH ×2 (12:39→17:05)
--- NOTE | 2019-05-22 12:44 | Hospitalist Progress Note ---
Date of Service May 22, 2019 Assessment & Plan (1) Diverticulitis: CT a/p on 05/20 showed "acute diverticulitis of the sigmoid colon." - Continue ertapenem x 14 days total (End date: 06/03/2019) - GI following - Seen by ID who agrees with 14 day course - The patient was somewhat concerned about having a midline/PICC when this was discussed on 05/21 per prior hospitalist D/W pt and daughter today and they are agreeable to proceed with PICC/midline Pt requests HHN on d/c for abx administration, d/w CM Started on probiotic given diarrhea (2) HTN (hypertension): BP today is improved while on her medications. - Continue home meds: felodipine, indapamide, irbesartan, and metoprolol (3) Chronic kidney disease, stage 3a: Baseline Cr ~0.8, eGFR ~70. - Presently at baseline. - Monitor (4) DVT prophylaxis: Lovenox 30mg SC daily Subjective Pt states she had "terrible" night last night due to recurrent and painful diarrhea. She states she has never had diarrhea like that before. She did not sleep well due to this. She continues to have abd pain, but it is less now. It was not worse with the diarrhea. She states that she can now move around without pain, but still some pain if she pushes on her LLQ. She tolerated soft diet for breakfast and was attempting lunch during our discussion. No n/v. Pt denies fever, SOB, chest pain, LE pain or swelling. Her daughter is present and feels pt looks overall improved. Review of Systems Review of Systems: Pertinent positives and negatives reviewed in HPI--all others negative Physical Exam Constitutional: WD/WN, vitals as above Eyes: normal visual melvin by confrontation and + anicteric sclerae Neck: normal visual inspection and trachea midline Respiratory: normal respiratory effort, lungs clear to auscultation Cardiovascular: Rate/Rhythm: regular rate and regular rhythm Gastrointestinal (Abdomen): Inspection/Auscultation: + abdomen distended Percussion/Palpation: + abdomen tender (LLQ, mild) and abdomen soft Musculoskeletal: Head/Neck/Chest: normocephalic and head atraumatic negative for edema, peripheral pulses intact Skin: no rashes, warm and dry Neurologic: awake; not confused Speech / Cognition: normal speech Psychiatric: A+Ox3, euthymic affect Results & Data Vital Signs (Past 12 Hours) Vital Signs Temp Pulse Resp BP Pulse Ox 05/22/19 11:41 36.3 C L 82 18 143/87 H 96 05/22/19 07:33 36.6 C 98 H 20 183/105 H 95 05/22/19 03:09 37.0 C 90 16 175/104 H 94 PG Care Time/CCT Total # of Minutes Spent Total Time Spent with Patient: Total time spent is greater than 50% in coordination of care (as documented) at patient's floor/unit and/or counseling patient: (1) HTN (hypertension) Hypertension type: essential hypertension Qualified Code(s): I10 - Essential (primary) hypertension
[2019-05-22] MEDS: CALCIUM 600MG + VIT D 400 IU TAB PO SCH (19:14)
[2019-05-22] MEDS: TRAZODONE HCL 50 MG TAB PO SCH (20:06)
[2019-05-23 07:12] LABS: Creatinine Clr Calc Pharmacy 61.2 ml/min; Est GFR (Non-African American) 81.1
[2019-05-23] MEDS: LACTOBACILLUS ACIDOPHILUS 1 GM PACK PO SCH ×3 (08:22→16:51)
[2019-05-23] MEDS: METOPROLOL TARTRATE 100 MG TAB PO SCH ×2 (08:23→20:43)
[2019-05-23] MEDS: INDAPAMIDE 1.25 MG TAB PO SCH (08:23)
[2019-05-23] MEDS: IRBESARTAN 150 MG TAB PO SCH (08:23)
[2019-05-23] MEDS: FELODIPINE 5 MG TABCR PO SCH (08:23)
[2019-05-23] MEDS: CHOLECALCIFEROL 1,000 UNITS 25 MCG TAB PO SCH (08:24)
[2019-05-23] MEDS: NSS + 20MEQ KCL 20 MEQ/1,000 ML BAG IV SCH ×2 (08:25→19:12)
[2019-05-23] MEDS: ERTAPENEM SODIUM 1,000 MG in SODIUM CHLORIDE 0.9% 50 ML IV SCH (11:01)
--- NOTE | 2019-05-23 12:45 | Hospitalist Progress Note ---
Date of Service May 23, 2019 Assessment & Plan (1) Diverticulitis: CT a/p on 05/20 with "acute diverticulitis of the sigmoid colon." - Continue ertapenem x 14 days total (End date: 06/03/2019) - GI following - Seen by ID who agrees with 14 day course - The patient was somewhat concerned about having a midline/PICC when this was discussed on 05/21 per prior hospitalist D/W pt and daughter today and they are agreeable to proceed with PICC/midline Pt requests HHN on d/c for abx administration, d/w CM Started on probiotic given diarrhea--improving (2) HTN (hypertension): Pt with elevated BP during admission Noted to have the same issue on admission 07/2018 as well Pt states she was seen by PCP last week and BP was 140 systolic She and daughter both state that this is an issue while in the hospital but improves on d/c--will leave home meds as is - Continue home meds: felodipine, indapamide, irbesartan, and metoprolol (3) Weakness: In the setting of poor sleep and diarrhea CBC, PRP WNL on 05/22, repeat in AM PT/OT without recs for any further services Stable for transfer to floor (4) Chronic kidney disease, stage 3a: Baseline Cr ~0.8, eGFR ~70. - Presently at baseline. - Monitor (5) DVT prophylaxis: Lovenox 30mg SC daily Stable for transfer to floor Subjective Pt states she had better night last night but still was up multiple times with diarrhea. It was less than the night prior, but she still did not sleep well due to this. Abd pain continues to improve and is mostly if she pushes on her LLQ. She is tolerating soft diet. No n/v. Pt denies fever, SOB, chest pain, LE pain or swelling. Concerns from nursing overnight that pt was quite weak and had issues ambulating across the room to the toilet. She was able to use the bedside commode easier. Pt feels she is more weak due to lack of sleep but that "I would be fine at home". She does not feel well enough to return to home today though given the ongoing diarrhea. Review of Systems Review of Systems: Pertinent positives and negatives reviewed in HPI--all others negative Physical Exam Constitutional: WD/WN, vitals as above Eyes: normal visual melvin by confrontation and + anicteric sclerae Neck: normal visual inspection and trachea midline Respiratory: normal respiratory effort, lungs clear to auscultation Cardiovascular: Rate/Rhythm: regular rate and regular rhythm Gastrointestinal (Abdomen): Inspection/Auscultation: + abdomen distended Percussion/Palpation: + abdomen tender (LLQ, mild and improving) and abdomen soft Musculoskeletal: Head/Neck/Chest: normocephalic and head atraumatic neg for LE edema Skin: no rashes, warm and dry Neurologic: awake; not confused Speech / Cognition: normal speech Psychiatric: A+Ox3, euthymic affect Results & Data Vital Signs (Past 12 Hours) Vital Signs Temp Pulse Resp BP Pulse Ox 05/23/19 11:47 36.8 C 79 18 151/74 H 94 05/23/19 07:58 36.4 C L 95 H 18 173/101 H 95 05/23/19 03:49 36.8 C 101 H 20 178/125 H 92 PG Care Time/CCT Total # of Minutes Spent Total Time Spent with Patient: Total time spent is greater than 50% in coordination of care (as documented) at patient's floor/unit and/or counseling patient: (1) HTN (hypertension) Hypertension type: essential hypertension Qualified Code(s): I10 - Essential (primary) hypertension
[2019-05-23] MEDS: ENOXAPARIN INJ 30 MG/0.3 ML SYR SQ SCH (14:17)
[2019-05-23] MEDS: ACETAMINOPHEN 500 MG TAB PO PRN (14:20)
[2019-05-23] MEDS: CALCIUM 600MG + VIT D 400 IU TAB PO SCH (20:43)
[2019-05-23] MEDS: TRAZODONE HCL 50 MG TAB PO SCH (20:43)
[2019-05-24] MEDS: NSS + 20MEQ KCL 20 MEQ/1,000 ML BAG IV SCH (05:24)
[2019-05-24 06:19] LABS: Basophils # (auto) 0.04 K/uL (0-0.2); Basophils % (auto) 0.6 %; Eosinophils % (auto) 7.1 %; Hematocrit (blood only) 40.4 % (37-47); Hemoglobin 13.4 g/dL (12.0-16.0); Immature Granulocytes # (auto) 0.01 K/uL (0.00-0.02); Immature Granulocytes % (auto) 0.1 %; Lymphocytes # (auto) 2.06 K/uL (1.2-3.4); Lymphocytes % (auto) 29.4 %; Mean Corpuscular Hemoglobin 30.2 pg (25-34); Mean Corpuscular Hgb Conc 33.2 g/dL (32-36); Mean Corpuscular Volume 91.2 fL (80-100); Mean Platelet Volume 9.6 fL (7.4-10.4); Monocytes # (auto) 0.72 K/uL (0.11-0.59); Monocytes % (auto) 10.3 %; Neutrophils # (auto) 3.68 K/uL (1.4-6.5); Neutrophils % (auto) 52.5 %; Platelet Count 274 K/uL (130-400); RDW Coefficient of Variation 13.9 % (11.5-14.5); RDW Standard Deviation 46.6 fL (36.4-46.3); Red Blood Count 4.43 M/uL (4.2-5.4); White Blood Count 7.01 K/uL (4.8-10.8)
[2019-05-24 06:49] LABS: BUN Creatinine Ratio 11.6 (10-20); Calcium 8.9 mg/dl (8.5-10.1); Creatinine Clr Calc Pharmacy 60.3 ml/min; Est GFR (African American) 93.6; Est GFR (Non-African American) 80.7; Magnesium 1.6 mg/dl (1.8-2.4); Potassium 3.7 mmol/L (3.5-5.1)
[2019-05-24] MEDS: LACTOBACILLUS ACIDOPHILUS 1 GM PACK PO SCH ×2 (07:41→12:23)
[2019-05-24] MEDS: INDAPAMIDE 1.25 MG TAB PO SCH (07:49)
[2019-05-24] MEDS: METOPROLOL TARTRATE 100 MG TAB PO SCH (07:49)
[2019-05-24] MEDS: IRBESARTAN 150 MG TAB PO SCH (07:50)
[2019-05-24] MEDS: FELODIPINE 5 MG TABCR PO SCH (07:51)
[2019-05-24] MEDS: CHOLECALCIFEROL 1,000 UNITS 25 MCG TAB PO SCH (09:44)
[2019-05-24] MEDS: ERTAPENEM SODIUM 1,000 MG in SODIUM CHLORIDE 0.9% 50 ML IV SCH (10:28)
--- NOTE | 2019-05-24 11:53 | Discharge Summary ---
Date of Service May 24, 2019 Admission HPI Per Admitting Provider This is an 83-year-old female with past medical history of small bowel structure status post ex lap and lysis of adhesions and July 2018, hypertension, diverticulosis that presents today complaining of abdominal pain. Patient is accompanied by family and all are good historians. Patient tells me that she was doing well and she lives at [facility]. She was doing some housework 2 days ago when she had some mild pain in her left flank with radiations to the suprapubic area. She thought she had pulled a muscle did not think much of it. She told me that she did not "feel well "over the next 24 hours but denied any overt fevers, chills, or other GI symptoms. She told me she had 2 bowel movements yesterday that were both normal. She had a holiday dinner at the facility at approximately 1:30p yesterday which she tolerated well without any nausea or vomiting. However, she woke up the next morning and more weak. The pain in her flank had progressed. She had had a previous small bowel obstruction and was afraid that this was the case and present to the emergency room this morning for further evaluation. She denies taking her medications this morning. CT scan shows acute sigmoid diverticulitis which is uncomplicated, patient tells us that she cannot tolerate any oral medications including quinolones and Flagyl. She is therefore being admitted for IV treatment of her acute uncomplicated diverticulitis. Patient seems to have a level anxiety but denies any chest pain, shortness breath, palpitations, fever or chills. She is passing flatus. Principal Diagnosis Pt would like to go home. She is having difficulty sleeping in the hospital and feels she is well enough for d/c at this time. She has no further abd pain. Her diarrhea is still present, but less. She is tolerating PO without issue. Pt denies fever, SOB, chest pain, n/v, LE pain or swelling. Discharge Exam Constitutional WD/WN, vitals as above Eyes normal visual melvin by confrontation and + anicteric sclerae Neck normal visual inspection and trachea midline Respiratory normal respiratory effort, lungs clear to auscultation Cardiovascular Rate/Rhythm: regular rate and regular rhythm Gastrointestinal (Abdomen) Percussion/Palpation: abdomen soft; abdomen nontender (LLQ, mild and improving) Musculoskeletal Head/Neck/Chest: normocephalic and head atraumatic neg LE edema Skin no rashes, warm and dry Neurologic awake; not confused Speech / Cognition: normal speech Psychiatric A+Ox3, euthymic affect Discharge Data Allergies Allergy/AdvReac Type Severity Reaction Status Date / Time Penicillins Allergy Unknown HIVES Verified 05/20/19 08:20 Cipro AdvReac Severe "MADE ME Unverified 03/20/17 02:09 DEATHLY ILL" ciprofloxacin AdvReac Severe Weakness Unverified 05/20/19 08:20 metronidazole AdvReac Severe Weakness Unverified 05/20/19 08:20 lisinopril AdvReac Intermediate Weakness Verified 05/20/19 08:20 Consultations 05/20/19 10:53 ED Decision to Admit Stat 05/20/19 13:03 Consult Case Management - Discharge Planning Routine Consult Case Management - Discharge Planning Routine Consult Gastroenterology Routine 05/20/19 15:08 Consult Infectious Diseases Routine Ordered Studies 05/20/19 08:12 CT abd pelvis IV con only Stat Hospital Course (1) Diverticulitis: CT a/p on 05/20 with "acute diverticulitis of the sigmoid colon." - Continue ertapenem x 14 days total (End date: 06/03/2019) - Seen by GI during admission - Seen by ID who agrees with 14 day course Midline placed 05/22 HHN on d/c for abx administration Started on probiotic given diarrhea--improving Advised to continue this throughout course of tx and for at least 1 month prior Some data suggests that probiotics can help with recurrence of diverticulitis due to decreased constipation. Discussed with pt and daughter and advised ongoing use. (2) HTN (hypertension): Pt with elevated BP during admission Noted to have the same issue on admission 07/2018 as well Pt states she was seen by PCP last week and BP was 140 systolic She and daughter both state that this is an issue while in the hospital but improves on d/c--will leave home meds as is - Continue home meds (3) Weakness: In the setting of poor sleep and diarrhea CBC, PRP WNL on 05/22, repeat in AM PT/OT without recs for any further services (4) Chronic kidney disease, stage 3a: Baseline Cr ~0.8, eGFR ~70. - Presently at baseline. (5) DVT prophylaxis: Lovenox 30mg SC daily during admission Total Time Total Time Spent Total Time Spent (In Minutes): >30 Discharge Plan Discharge Items Patient Disposition: Home - Home Health Services Reason For Visit: ABD PAIN Discharge Diagnosis: Diverticulitis Activity: Resume your previous activity Non-emergency contact: Primary Care Provider and Mortgage Loan Interviewer Call non-emergency contact if: you have any medication questions, your symptoms worsen, your pain is not controlled, your pain is worsening and your pain is concerning for you Follow-up/Referrals: Tracie Rush, [Primary Care Provider] - 05/30/19 12:50 pm (Please, follow up at Dr. Tracie Rush's office with her associate, Fatoumata CURTIS, on May 30 at 12:50 pm. *If you need to change this appointment, call the office at [phone].) Diet: Low Fiber Addtl Attending Provider Instructions: You should stick with a low fiber diet for the next two weeks. Avoid tough to digest vegetables like broccoli, brussels sprouts, leafy greens. Also avoid stringy meat like beef. Chicken and fish without breading/coating are fine. Fruits without peels are fine. You should continue to take a probiotic, specifically for the time you are on antibiotics and then for at least one month after you complete antibiotics. You should continue with probiotics after that time to help prevent further diverticulitis episodes. A good probiotic is Jarrow EPS 5billion, available at [employer]. You should take 2 a day, at 2 different times of day for the next 6 weeks. After that time, you can try taking just 1 a day for a goal of one solid bowel movement daily. You can take additional probiotics if you have constipation. I did send a prescription to your pharmacy for probiotics if you cannot get the one listed above from [employer]. You do not have to take the prescription version if you are taking the over the counter from [employer]. Pending Studies at Discharge: No Stand-Alone Forms: My [employer], Smoking Cessation Medications and DC Order Prescriptions: New Floranex 100 million cell Granules In Packet 1 pkt PO TIDM Qty: 90 RF: 1 Continued trazodone 50 mg tablet 50 mg PO HS RF: 0 metoprolol tartrate 100 mg tablet 100 mg PO BID RF: 0 acetaminophen [Tylenol Extra Strength] 500 mg Tablet 500 mg PO Q6H PRN (Reason: Pain) RF: 0 indapamide 1.25 mg tablet 1.25 mg PO QAM RF: 0 felodipine 10 mg tablet extended release 24 hr 10 mg PO QAM RF: 0 irbesartan 300 mg Tablet 300 mg PO QAM RF: 0 cholecalciferol (vitamin D3) [Vitamin D3] 2,000 unit Tablet 2,000 unit PO QAM RF: 0 Caltrate 600 plus D 600 mg (1,500 mg)-800 unit Tablet,Chewable 1 tab PO PM RF: 0 Discharge Orders: Discharge Order (Routine); Ordered 05/24/19 Ordered By: Criss Hooks Admission Data Admit Date/Time: 05/20/19 12:04 Attending Provider: Criss Hooks Admit Provider: Jordi Orozco Primary Care Provider: Tracie Rush Other Providers: Irwin Morales ; [facility] ; Jordi Orozco ; [facility] ; Octavio Naik Other Interventions: Discharge Summary Assessment (RN) Last Done: 05/24/19 11:34 DC Date/Time DO NOT enter until pt leaves facility: 05/24/19 14:15
[2019-05-24] MEDS: ENOXAPARIN INJ 30 MG/0.3 ML SYR SQ SCH (13:32)
== END 2019-05-24 14:15 | disposition home health service (06) | DRG 392 ==
LOC: ED 07:59 → INTOOBSV 12:04 → 2E 12:04 → OBSVTOIN 12:04 → SUATTDRO 12:04 → 2E 12:40 → 2N 05-23 13:13

== ENCOUNTER 2021-08-31 20:22 | Observation (INO) ==
[2021-08-31] MEDS ORDERED: METOPROLOL TARTRATE 50 MG TAB PO STA (21:14)
[2021-08-31 21:20] LABS: Basophils # (auto) 0.04 K/uL (0-0.2); Basophils % (auto) 0.4 %; Eosinophils # (auto) 0.23 K/uL (0-0.5); Eosinophils % (auto) 2.2 %; Hematocrit (blood only) 44.5 % (37-47); Hemoglobin 14.6 g/dL (12.0-16.0); Immature Granulocytes # (auto) 0.03 K/uL (0.00-0.02); Immature Granulocytes % (auto) 0.3 %; Lymphocytes # (auto) 2.57 K/uL (1.2-3.4); Mean Corpuscular Hemoglobin 29.9 pg (25-34); Mean Corpuscular Hgb Conc 32.8 g/dL (32-36); Mean Corpuscular Volume 91.2 fL (80-100); Mean Platelet Volume 10.6 fL (7.4-10.4); Monocytes # (auto) 1.22 K/uL (0.11-0.59); Monocytes % (auto) 11.9 %; Neutrophils # (auto) 6.18 K/uL (1.4-6.5); Neutrophils % (auto) 60.2 %; Platelet Count 272 K/uL (130-400); RDW Coefficient of Variation 13.8 % (11.5-14.5); RDW Standard Deviation 46.2 fL (36.4-46.3); Red Blood Count 4.88 M/uL (4.2-5.4); White Blood Count 10.27 K/uL (4.8-10.8)
[2021-08-31 21:34] LABS: Partial Thromboplastin Time 27.3 Seconds (21.0-31.0); Prothrombin Time 10.7 Seconds (9.0-12.0)
--- NOTE | 2021-08-31 21:42 | Emergency Department Note ---
Impression & Plan Heart palpitations, Weakness, Multifocal atrial tachycardia, PAC (premature atrial contraction), Hypokalemia ED Provider Note NAME: MANNIE CAMARENA AGE: 85 SEX: F : 1935 ARRIVES VIA: Ambulance INFORMANT: Patient, ED PROVIDER(S): Arturo Michaud DO CHIEF COMPLAINT: Palpitations HPI: The patient is an 85-year-old female who presented to the emergency department for an evaluation of palpitations. The patient states that she had an acute onset of palpitations earlier this evening. She states she noticed her blood pressure was very high as well. She denies having any chest pain or difficulty breathing. The episode occurred twice. She states that this time she does not have a sensation of palpitations. She denies having any lower extremity swelling but she has noticed some cramping in her legs. She states th at she has been compliant with her outpatient medications but she did not take her evening dose of metoprolol. She has a history of valvular heart disease but has never had atrial fibrillation. She denies having any fevers. She is had no cough or difficulty breathing. She said no recent trauma. She states that she called 911 this evening because of the degree of symptoms. She was accompanied to the emergency department with family members. ROS: See above HPI for pertinent positives & negatives. A total of 10 systems reviewed and were otherwise negative. PAST MEDICAL HISTORY: See Below PAST SURGICAL HISTORY: See Below FAMILY HISTORY: See Below SOCIAL HISTORY: See Below HOME MEDICATIONS: See Below ALLERGIES: See Below VITALS: See Below PHYSICAL EXAMINATION: GENERAL: Patient is awake alert in no acute distress patient is resting comfortably and showing no signs of anxiety EYES: The conjunctivae are clear. The pupils are round and reactive. EARS, NOSE, MOUTH AND THROAT: The nose is without any evidence of any deformity. Mucous membranes are moist. Tongue is midline. NECK: The neck is nontender and supple. RESPIRATORY: Normal respiratory effort is noted there is no evidence of wheezing rhonchi or rales CARDIOVASCULAR: Tachycardic and irregular heart sounds are noted auscultation. There is no definite murmur noted. GASTROINTESTINAL: The abdomen is soft. Abdomen is nontender. MUSCULOSKELETAL/EXTREMITIES: There is no evidence of gross deformity full range of motion is noted in the hips and shoulders. SKIN: There is no obvious evidence of any rash. Skin was warm and dry. Trace pedal edema was noted bilaterally. NEUROLOGIC: Patient is awake alert and oriented x3 MEDICAL DECISION MAKING: The patient is an 85-year-old female who presented to the emergency department for evaluation of palpitations. The patient presented via ambulance. She had an episode where she felt as though her heart was racing and pounding. She does have a history of valvular heart disease although her most recent echocardiogram in our system did not show severe valvular heart disease. The patient was treated with her outpatient blood pressure medication in the emergency department. She was reevaluated multiple times. I discussed the patient's laboratory and radiographic studies with her. Her initial EKG appeared to be consistent with multifocal atrial tachycardia versus sinus tach with ectopic atrial beats. She was nonhypoxic. She did try to ambulate in the emergency department and appeared to be very weak but states she normally walks using a walker. Given the patient's complaints as well as her initial EKG I do feel that she may be a better candidate for inpatient management and further work-up. I discussed her condition with the on-call [facility]. They have agreed to evaluate the patient in the emergency department for further management and disposition. Triage Nursing notes reviewed. Prior medical records reviewed Vital Signs: reviewed and remarkable for elevated blood pressure. Differential diagnosis: Premature contractions, electrolyte abnormality, cardiac dysrhythmia, thyroid dysfunction, pulmonary embolism, infection, gastrointestinal, as well as other pathologies. ER treatment provided: See below Diagnostics interpreted by me: ECG: EKG was obtained in the emergency department. My interpretation is multifocal atrial tachycardia at 105 bpm. LVH was noted by voltage criteria. Nonspecific ST segment abnormalities were noted. This was compared to a tracing from May 202018. The dysrhythmia is new compared to the earlier [facility] ing. A second tracing was obtained in the emergency department. My interpretation is sinus rhythm at 87 bpm. Compared to the earlier tracing the rate has improved however there is still continues to be more of a wandering atrial pacemaker. Cardiac Monitoring: An order was placed for continuous cardiac monitoring. The monitor shows a rate of 83 bpm with sinus rhythm with PACs Laboratory studies: As stated above and show below. Imaging studies: See below Consultation(s): I discussed this case with Dr. Guallpa who is on-call for the [facility] group. Past Med/Surg History Medical History (Updated 08/31/21 @ 23:56 by Arturo Michaud DO) Cardiomyopathy Chronic kidney disease, stage 3a Diverticulitis Fibromyalgia HTN (hypertension) Hypokalemia Hypomagnesemia Hyponatremia Small bowel obstruction Valvular heart disease Surgical History H/O exploratory laparotomy SBO in . 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 Beliefs That Will Affect Care: None marital status: / Current Living Situation: Alone Feels Safe at Home: Yes Assistive Devices: Glasses and Walker Allergies Allergies Allergy/AdvReac Type Severity Reaction Status Date / Time Penicillins Allergy Unknown HIVES Verified 02/18/21 17:38 Cipro AdvReac Severe "MADE ME Unverified 03/20/17 02:09 DEATHLY ILL" ciprofloxacin AdvReac Severe "MADE ME Unverified 02/18/21 17:38 DEATHLY ILL" metronidazole AdvReac Severe Weakness Verified 02/18/21 17:38 lisinopril AdvReac Intermediate Weakness Verified 02/18/21 17:38 Home Meds Home Medications Medication Instructions Recorded Confirmed calcium carbonate 600 mg-vitamin 1 tab PO PM 08/04/18 02/18/21 D3 20 mcg (800 unit) chewable tablet (Caltrate 600 plus D) cholecalciferol (vitamin D3) 50 2,000 unit PO QAM 08/04/18 02/18/21 mcg (2,000 unit) tablet (Vitamin D3) felodipine 10 mg tablet,extended 10 mg PO QAM 08/04/18 02/18/21 release 24 hr indapamide 1.25 mg tablet 1.25 mg PO QAM 08/04/18 02/18/21 irbesartan 300 mg tablet 300 mg PO QAM 08/04/18 02/18/21 metoprolol tartrate 100 mg tablet 100 mg PO BID 08/04/18 02/18/21 trazodone 50 mg tablet 50 mg PO HS 08/04/18 02/18/21 acetaminophen 650 mg 650 - 1,300 mg PO Q12H PRN 02/18/21 02/18/21 tablet,extended release lactobacillus combination no.4 3 0 mmu cells PO DAILY 02/18/21 02/18/21 billion cell capsule (Probiotic) Previous Rx's Medication Instructions Recorded lidocaine 5 % topical patch 1 patch TOP DAILY PRN #15 ea 02/18/21 (Lidoderm) Results & Data (ED) Vital Signs Vital Signs - 24 hr 08/31/21 20:15 08/31/21 20:38 08/31/21 20:40 Temperature 36.7 C Temperature Source Oral Pulse Rate 112 H 105 H 105 H Pulse Rate from SpO2 Sensor 103 H 104 H Pulse Rhythm Regular Pulse Strength Normal Respiratory Rate 20 24 19 Respiratory Effort / Characteristics Non-Labored Spontaneous Respiratory Depth Normal Respiratory Pattern Regular Blood Pressure 188/112 H 181/119 H Blood Pressure Mean 137 139 Blood Pressure Position Semi-fowlers Pulse Oximetry 94 95 96 Oxygen Delivery Method Room Air Sepsis Recent Fever Within 48 Hours No Sepsis New/Unexplained Change in Mental Status N/A Sepsis Action Taken by Nursing No Action Required 08/31/21 20:50 08/31/21 21:00 08/31/21 22:02 Temperature Temperature Source Pulse Rate 109 H 101 H 108 H Pulse Rate from SpO2 Sensor 101 H 111 H Pulse Rhythm Pulse Strength Respiratory Rate 21 22 22 Respiratory Effort / Characteristics Respiratory Depth Respiratory Pattern Blood Pressure 184/95 H 178/114 H Blood Pressure Mean 124 135 Blood Pressure Position Pulse Oximetry 95 92 Oxygen Delivery Method Room Air Sepsis Recent Fever Within 48 Hours Sepsis New/Unexplained Change in Mental Status Sepsis Action Taken by Nursing 08/31/21 22:10 08/31/21 22:48 08/31/21 23:00 Temperature Temperature Source Pulse Rate 101 H 90 81 Pulse Rate from SpO2 Sensor 103 H 80 Pulse Rhythm Pulse Strength Respiratory Rate 19 20 25 H Respiratory Effort / Characteristics Respiratory Depth Respiratory Pattern Blood Pressure 176/95 H 165/92 H Blood Pressure Mean 122 116 Blood Pressure Position Pulse Oximetry 94 95 Oxygen Delivery Method Sepsis Recent Fever Within 48 Hours Sepsis New/Unexplained Change in Mental Status Sepsis Action Taken by Nursing 08/31/21 23:20 Temperature Temperature Source Pulse Rate 83 Pulse Rate from SpO2 Sensor 82 Pulse Rhythm Pulse Strength Respiratory Rate 17 Respiratory Effort / Characteristics Respiratory Depth Respiratory Pattern Blood Pressure Blood Pressure Mean Blood Pressure Position Pulse Oximetry 94 Oxygen Delivery Method Sepsis Recent Fever Within 48 Hours Sepsis New/Unexplained Change in Mental Status Sepsis Action Taken by Alf Medications Current Medication List: was personally reviewed by me Laboratory Data Attestation: I reviewed the patient's lab results. Result diagrams: 08/31/21 20:32 08/31/21 22:31 Lab Results 08/31/21 08/31/21 08/31/21 Range/Units 20:00 20:32 20:32 WBC 10.27 (4.8-10.8) K/uL RBC 4.88 (4.2-5.4) M/uL Hgb 14.6 (12.0-16.0) g/dL Hct 44.5 (37-47) % MCV 91.2 (80-100) fL MCH 29.9 (25-34) pg MCHC 32.8 (32-36) g/dL RDW Std Deviation 46.2 (36.4-46.3) fL RDW Coeff of Mari 13.8 (11.5-14.5) % Plt Count 272 (130-400) K/uL MPV 10.6 H (7.4-10.4) fL Immature Gran % (Auto) 0.3 % Neut % (Auto) 60.2 % Lymph % (Auto) 25.0 % [place] % (Auto) 11.9 % Eos % (Auto) 2.2 % Baso % (Auto) 0.4 % Neut # (Auto) 6.18 (1.4-6.5) K/uL Lymph # (Auto) 2.57 (1.2-3.4) K/uL [place] # (Auto) 1.22 H (0.11-0.59) K/uL Eos # (Auto) 0.23 (0-0.5) K/uL Baso # (Auto) 0.04 (0-0.2) K/uL Immature Gran # (Auto) 0.03 H (0.00-0.02) K/uL PT 10.7 (9.0-12.0) Seconds INR 1.0 (0.9-1.1) APTT 27.3 (21.0-31.0) Seconds PTT Ratio 1.0 Sodium (136-145) mmol/L Potassium (3.5-5.1) mmol/L Chloride (98-107) mmol/L Carbon Dioxide (21-32) mmol/L Anion Gap (3-11) BUN (6-23) mg/dl Creatinine (0.6-1.2) mg/dl Est Cr Clr Drug Dosing ml/min Est GFR ( Amer) ml/min Est GFR (Non-Af Amer) ml/min BUN/Creatinine Ratio (10-20) Glucose (70-99(Fasting)) mg/dl Calcium (8.5-10.1) mg/dl Magnesium (1.7-2.4) mg/dl Total Bilirubin (0.2-1.0) mg/dl AST (13-39) U/L ALT (7-52) U/L Alkaline Phosphatase (34-104) U/L Troponin I (0-0.04) ng/ml Total Protein (6.0-8.3) gm/dl Albumin (3.4-5.0) gm/dl Globulin (2.5-4.0) gm/dl Albumin/Globulin Ratio (0.9-2) TSH (0.300-4.500) uIu/ml Urine Color Yellow Urine Appearance Clear (Clear) Urine pH 7.5 (4.5-7.5) Ur Specific [place] 1.009 (1.000-1.030) Urine Protein 2+ H (Negative) Urine Glucose (UA) Negative (Negative) Urine Ketones Negative (Negative) Urine Blood 1+ H (Negative) Urine Nitrite Negative (Negative) Urine Bilirubin Negative (Negative) Urine Urobilinogen Negative (Negative) Ur Leukocyte Esterase Negative (Negative) Urine WBC (Auto) 5-10 H (0-5) /hpf Urine RBC (Auto) 5-10 H (0-4) /hpf U Hyaline Cast (Auto) 0 (0-5) /lpf U Epithel Cells (Auto) 5-10 H (0-5) /lpf Urine Bacteria (Auto) Negative (Negative) SARS-CoV-2, RNA, NAAT (NEGATIVE) 08/31/21 08/31/21 08/31/21 Range/Units 20:32 20:32 21:56 WBC (4.8-10.8) K/uL RBC (4.2-5.4) M/uL Hgb (12.0-16.0) g/dL Hct (37-47) % MCV (80-100) fL MCH (25-34) pg MCHC (32-36) g/dL RDW Std Deviation (36.4-46.3) fL RDW Coeff of Mari (11.5-14.5) % Plt Count (130-400) K/uL MPV (7.4-10.4) fL Immature Gran % (Auto) % Neut % (Auto) % Lymph % (Auto) % [place] % (Auto) % Eos % (Auto) % Baso % (Auto) % Neut # (Auto) (1.4-6.5) K/uL Lymph # (Auto) (1.2-3.4) K/uL [place] # (Auto) (0.11-0.59) K/uL Eos # (Auto) (0-0.5) K/uL Baso # (Auto) (0-0.2) K/uL Immature Gran # (Auto) (0.00-0.02) K/uL PT (9.0-12.0) Seconds INR (0.9-1.1) APTT (21.0-31.0) Seconds PTT Ratio Sodium 141 (136-145) mmol/L Potassium Cancelled (3.5-5.1) mmol/L Chloride 102 (98-107) mmol/L Carbon Dioxide 28 (21-32) mmol/L Anion Gap 11 (3-11) BUN 20 (6-23) mg/dl Creatinine 0.90 (0.6-1.2) mg/dl Est Cr Clr Drug Dosing 45.3 ml/min Est GFR ( Amer) 67.1 ml/min Est GFR (Non-Af Amer) 57.9 ml/min BUN/Creatinine Ratio 22.2 H (10-20) Glucose 197 H (70-99(Fasting)) mg/dl Calcium 9.6 (8.5-10.1) mg/dl Magnesium 1.8 (1.7-2.4) mg/dl Total Bilirubin 0.5 (0.2-1.0) mg/dl AST Cancelled (13-39) U/L ALT 10 (7-52) U/L Alkaline Phosphatase 93 (34-104) U/L Troponin I < 0.03 (0-0.04) ng/ml Total Protein 6.8 (6.0-8.3) gm/dl Albumin 3.9 (3.4-5.0) gm/dl Globulin 2.9 (2.5-4.0) gm/dl Albumin/Globulin Ratio 1.3 (0.9-2) TSH 2.783 (0.300-4.500) uIu/ml Urine Color Urine Appearance (Clear) Urine pH (4.5-7.5) Ur Specific [place] (1.000-1.030) Urine Protein (Negative) Urine Glucose (UA) (Negative) Urine Ketones (Negative) Urine Blood (Negative) Urine Nitrite (Negative) Urine Bilirubin (Negative) Urine Urobilinogen (Negative) Ur Leukocyte Esterase (Negative) Urine WBC (Auto) (0-5) /hpf Urine RBC (Auto) (0-4) /hpf U Hyaline Cast (Auto) (0-5) /lpf U Epithel Cells (Auto) (0-5) /lpf Urine Bacteria (Auto) (Negative) SARS-CoV-2, RNA, NAAT (NEGATIVE) 08/31/21 08/31/21 Range/Units 22:31 23:33 WBC (4.8-10.8) K/uL RBC (4.2-5.4) M/uL Hgb (12.0-16.0) g/dL Hct (37-47) % MCV (80-100) fL MCH (25-34) pg MCHC (32-36) g/dL RDW Std Deviation (36.4-46.3) fL RDW Coeff of Mari (11.5-14.5) % Plt Count (130-400) K/uL MPV (7.4-10.4) fL Immature Gran % (Auto) % Neut % (Auto) % Lymph % (Auto) % [place] % (Auto) % Eos % (Auto) % Baso % (Auto) % Neut # (Auto) (1.4-6.5) K/uL Lymph # (Auto) (1.2-3.4) K/uL [place] # (Auto) (0.11-0.59) K/uL Eos # (Auto) (0-0.5) K/uL Baso # (Auto) (0-0.2) K/uL Immature Gran # (Auto) (0.00-0.02) K/uL PT (9.0-12.0) Seconds INR (0.9-1.1) APTT (21.0-31.0) Seconds PTT Ratio Sodium (136-145) mmol/L Potassium 3.3 L (3.5-5.1) mmol/L Chloride (98-107) mmol/L Carbon Dioxide (21-32) mmol/L Anion Gap (3-11) BUN (6-23) mg/dl Creatinine (0.6-1.2) mg/dl Est Cr Clr Drug Dosing ml/min Est GFR ( Amer) ml/min Est GFR (Non-Af Amer) ml/min BUN/Creatinine Ratio (10-20) Glucose (70-99(Fasting)) mg/dl Calcium (8.5-10.1) mg/dl Magnesium (1.7-2.4) mg/dl Total Bilirubin (0.2-1.0) mg/dl AST 12 L (13-39) U/L ALT (7-52) U/L Alkaline Phosphatase (34-104) U/L Troponin I (0-0.04) ng/ml Total Protein (6.0-8.3) gm/dl Albumin (3.4-5.0) gm/dl Globulin (2.5-4.0) gm/dl Albumin/Globulin Ratio (0.9-2) TSH (0.300-4.500) uIu/ml Urine Color Urine Appearance (Clear) Urine pH (4.5-7.5) Ur Specific [place] (1.000-1.030) Urine Protein (Negative) Urine Glucose (UA) (Negative) Urine Ketones (Negative) Urine Blood (Negative) Urine Nitrite (Negative) Urine Bilirubin (Negative) Urine Urobilinogen (Negative) Ur Leukocyte Esterase (Negative) Urine WBC (Auto) (0-5) /hpf Urine RBC (Auto) (0-4) /hpf U Hyaline Cast (Auto) (0-5) /lpf U Epithel Cells (Auto) (0-5) /lpf Urine Bacteria (Auto) (Negative) SARS-CoV-2, RNA, NAAT NEGATIVE (NEGATIVE) Administered Medications Magnesium Sulfate/Dextrose (Magnesium Sulfate / D5w) 1 gm in 100 mls @ 50 mls/hr IV Q2H STA Stop: 09/01/21 02:21 Last Admin: 09/01/21 00:31 Dose: 50 mls/hr Documented by: [id number] Discontinued Medications Metoprolol Tartrate (Metoprolol Tartrate 50 Mg Tab) 100 mg PO NOW STA Stop: 08/31/21 21:15 Last Admin: 08/31/21 21:38 Dose: 100 mg Documented by: [id number] Potassium Chloride (Potassium Chloride Crtab 20 Meq Tabcr) 20 meq PO NOW STA Stop: 08/31/21 23:30 Last Admin: 09/01/21 00:28 Dose: 20 meq Documented by: [id number] Imaging Data Attestation: I personally reviewed and interpreted this imaging study as follows: My Impression: 1 view chest x-ray was obtained in the emergency department. My interpretation is cardiomegaly. There is no significant pulmonary vascular congestion. There appears to be a left-sided pleural effusion. This was compared to a chest x-ray from May 202018. No significant changes were noted. Radiologist's Impression: Patient: MANNIE CAMARENA (Female) : 33 Status: ER Date: 08/31/21 21:48 Room #: History: HEADACHE Slices: 58 Priors: Tech: Joshua Rincon @ [phone] Exams: CT HEAD Contrast: Accession Numbers: [id number] Referring Physician: ARTURO MICHAUD Preliminary Findings Only See Final Report For Complete Findings CT HEAD: Comparison is made to CT head on 05/05/2021. No acute intracranial abnormality identified. Chronic small vessel ischemic disease and cerebral volume loss. 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 Bilateral lens implants. Atherosclerotic changes of the intracranial vasculature. Radiologist: Moreno Beal M.D. Study ready at 21:49 and initial results transmitted at 22:35 Discharge Plan Visit Data Chief Complaint: Hypertension ED Provider: Arturo Michaud Discharge Problem: Heart palpitations, Weakness, Multifocal atrial tachycardia, PAC (premature atrial contraction), Hypokalemia Patient Disposition: Being Evaluated by Hospitalist Forms Stand Alone Forms: [facility] Prescriptions Prescriptions: No Action trazodone 50 mg tablet 50 mg PO HS RF: 0 metoprolol tartrate 100 mg tablet 100 mg PO BID RF: 0 indapamide 1.25 mg tablet 1.25 mg PO QAM RF: 0 felodipine 10 mg tablet extended release 24 hr 10 mg PO QAM RF: 0 irbesartan 300 mg Tablet 300 mg PO QAM RF: 0 cholecalciferol (vitamin D3) [Vitamin D3] 2,000 unit Tablet 2,000 unit PO QAM RF: 0 Caltrate 600 plus D 600 mg (1,500 mg)-800 unit Tablet,Chewable 1 tab PO PM RF: 0 lidocaine [Lidoderm] 5 % adhesive patch,medicated 1 patch TOP DAILY PRN (Reason: pain) Qty: 15 RF: 0 acetaminophen [Tylenol Arthritis] 650 mg Tablet Extended Release 650 - 1,300 mg PO Q12H PRN (Reason: Pain) RF: 0 Probiotic 3 billion cell Capsule 0 mmu cells PO DAILY RF: 0 Referrals Referrals: Tracie Rush DO [Primary Care Provider] -
[2021-08-31 21:43] LABS: Troponin I < 0.03 ng/ml (0-0.04)
[2021-08-31 21:44] LABS: Alanine Aminotransferase 10 U/L (7-52); Albumin Globulin Ratio 1.3 (0.9-2); Albumin Level 3.9 gm/dl (3.4-5.0); Alkaline Phosphatase 93 U/L (34-104); Anion Gap 11 (3-11); BUN Creatinine Ratio 22.2 (10-20); Bilirubin,Total 0.5 mg/dl (0.2-1.0); Blood Urea Nitrogen 20 mg/dl (6-23); Calcium 9.6 mg/dl (8.5-10.1); Carbon Dioxide 28 mmol/L (21-32); Chloride 102 mmol/L (98-107); Creatinine Clr Calc Pharmacy 45.3 ml/min; Est GFR (African American) 67.1 ml/min; Est GFR (Non-African American) 57.9 ml/min; Globulin 2.9 gm/dl (2.5-4.0); Glucose 197 mg/dl (70-99(Fasting)); Magnesium 1.8 mg/dl (1.7-2.4); Sodium 141 mmol/L (136-145); Total Protein 6.8 gm/dl (6.0-8.3)
[2021-08-31 22:19] LABS: Appearance Urine Clear (Clear); Bacteria Urine Automated Negative (Negative); Bilirubin Urine Negative (Negative); Blood Urine 1+ (Negative); Cast Urine Automated 0 /lpf (0-5); Color Urine Yellow; Glucose Urine UA Negative (Negative); Ketones Urine Negative (Negative); Leukocyte Esterase Urine Negative (Negative); Nitrite Urine Negative (Negative); Specific Gravity Urine 1.009 (1.000-1.030); Urobilinogen Urine Negative (Negative); pH Urine 7.5 (4.5-7.5)
[2021-08-31 22:24] LABS: Protein Urine 2+ (Negative)
[2021-08-31 23:15] LABS: Potassium 3.3 mmol/L (3.5-5.1)
[2021-08-31] MEDS ORDERED: POTASSIUM CHLORIDE CRTAB 20 MEQ TABCR PO STA (23:29)
[2021-09-01] MEDS ORDERED: MAGNESIUM SULFATE / D5W 1 GM/100 ML BAG IV STA (00:22)
--- NOTE | 2021-09-01 00:23 | History & Physical Report ---
Date of Service September 01, 2021 Assessment & Plan (1) Heart palpitations: Plan: Acute onset palpitations, ?MAT on initial presentation per ER. EKG appears with PACs and fusion complexes Patient has "valvular heart disease" listed as problem in chart. ?uncertain diagnosis - last echo reviewed from 2019 with only trace MR, TR and AR She does have evidence of LVH on EKG - ?longstanding hypertension -Electrolyte management - K repletion -Mg x 2 gm -TSH WNL -Telemetry monitoring -Check 2D echo -Continue Metoprolol -May need outpatient monitoring (2) Hypokalemia: Plan: K=3.3 -Repletion with PO + IVF +K -Repeat chemistry in AM (3) Chronic kidney disease, stage 3a: Plan: Near baseline, BUN=20, Cr=0.9 with CrCl of 45 -Continue to monitor -Avoid nephrotoxic agents (4) HTN (hypertension): Plan: Blood pressure elevated upon arrival, patient reports it is typically well controlled at home. Appears to be significantly elevated during inpatient visits. Suspect anxiety component contributing at least partially to elevated blood pressure. No symptoms such as TANNER, chest pain, neurological deficits -Monitor -Continue Metoprolol -Continue Felodipine -Continue Indapamide -Continue Irbesartan Plan: F/E/N - LR + KCl, repeat chemistry in AM, Heart healthy diet as tolerated Code - DNR/DNI per discussion Dispo - observation with telemetry History of Present Illness Chief Complaint: palpitations Primary Care Provider: Tracie Rush DO Lauren Ho is a pleasant 85yo C female presenting to the ER with three episodes of palpitations. Patient was in her usual state of health, this evening eating supper around 17:00 when she developed a warm sensation over her body and palpitations - states that her heart was pounding and beating very fast. This episode lasted several minutes then resolved on its own. She had two similar episodes follow which were also self-limiting after several minutes. She denies chest pain, SOB, dizziness or presyncope. She had some dizziness while trying to ambulate at home which is why family called EMS. No recent illness, no change in medications, no increased caffeine/stimulant use. Upon arrival to the ER patient found to be in tachyarrhythmia thought possibly to be MAT vs AF. Elevated blood pressure - typically well controlled at home. ER Course: Metoprolol 100mg po, KCL 20mEq, Mg x 1gm Allergies Allergy/AdvReac Type Severity Reaction Status Date / Time Penicillins Allergy Unknown HIVES Verified 09/01/21 00:46 Cipro AdvReac Severe "MADE ME Unverified 03/20/17 02:09 DEATHLY ILL" ciprofloxacin AdvReac Severe "MADE ME Unverified 02/18/21 17:38 DEATHLY ILL" metronidazole AdvReac Severe Weakness Verified 09/01/21 00:46 lisinopril AdvReac Intermediate Weakness Verified 09/01/21 00:46 Home Medications Medication Instructions Recorded Confirmed Type calcium carbonate 600 mg-vitamin 1 tab PO PM 08/04/18 09/01/21 History D3 20 mcg (800 unit) chewable tablet (Caltrate 600 plus D) cholecalciferol (vitamin D3) 50 2,000 unit PO QAM 08/04/18 09/01/21 History mcg (2,000 unit) tablet (Vitamin D3) felodipine 10 mg tablet,extended 10 mg PO QAM 08/04/18 09/01/21 History release 24 hr indapamide 1.25 mg tablet 1.25 mg PO QAM 08/04/18 09/01/21 History irbesartan 300 mg tablet 300 mg PO QAM 08/04/18 09/01/21 History metoprolol tartrate 100 mg tablet 100 mg PO BID 08/04/18 09/01/21 History trazodone 50 mg tablet 50 mg PO HS 08/04/18 09/01/21 History acetaminophen 650 mg 650 - 1,300 mg PO Q12H PRN 02/18/21 09/01/21 History tablet,extended release lactobacillus combination no.4 3 0 mmu cells PO DAILY 02/18/21 09/01/21 History billion cell capsule (Probiotic) Past Med/Surg History Medical History (Updated 08/31/21 @ 23:56 by Johan Michaud DO) Cardiomyopathy Chronic kidney disease, stage 3a Diverticulitis Fibromyalgia HTN (hypertension) Hypokalemia Hypomagnesemia Hyponatremia Small bowel obstruction Valvular heart disease Surgical History H/O exploratory laparotomy SBO in . History of appendectomy History of section x2 History of laminectomy History of laparoscopy to remove fibroid tumor in uterus Family History Other No pertinent family history Denies family history of Myocardial infarction Stroke Social History Smoking Status: Never smoker Second Hand Exposure: No; Do You Dip or Chew Tobacco: No; Hx Alcohol Use: No Hx Substance Use: No Preferred Language: Northern Irish Communication Ability: Effective Stone Driller Required: No Beliefs That Will Affect Care: None marital status: / Current Living Situation: Alone Current Living Situation Comment: Lives at [facility] Other Information That Helps Us Care for You: No Feels Safe at Home: Yes Safety Concerns: Feels Safe At This Time Assistive Devices: Denture - Upper, Glasses, Hearing Aid - Bilateral and Walker Review of Systems Review of Systems: All systems reviewed & are unremarkable except as noted in HPI & below Physical Exam Physical Exam: General: patient resting comfortably, NAD, non-toxic in appearance, AA&O x 4 Skin: warm, dry, intact, no rashes or lesions HEENT: NC/AT, PERRL, EOMI, anicteric sclera, conjunctiva without injection, external ear normal to inspection and nontender, nares patent, moist mucus membranes, dentition intact, no oropharyngeal lesions, neck supple, trachea midline, no LAD, no thyromegaly, no JVD Heart: +S1/S2, regularly irregular, no m/r/g Lungs: equal air entry bilaterally, no rales/rhonchi/wheezes Abd: +BS, soft, NT/ND, no masses/organomegaly/ascites Ext: warm, 2+ pulses in UE/LE bilaterally, no clubbing/cyanosis, chronic RLE edema unchanged per patient Neuro: nonfocal, patient AA&O x 4, speech intact, no facial droop, moving all extremities on command with equal strength 5/5 Results & Data Results & Data ([facility]) Vital Signs (Past 12 Hours) Vital Signs Temp Pulse Resp BP Pulse Ox 08/31/21 23:20 83 17 94 08/31/21 23:00 81 25 H 165/92 H 95 08/31/21 22:48 90 20 176/95 H 08/31/21 22:10 101 H 19 94 08/31/21 22:02 108 H 22 178/114 H 92 08/31/21 21:00 101 H 22 184/95 H 95 08/31/21 20:50 109 H 21 08/31/21 20:40 105 H 19 96 08/31/21 20:38 105 H 24 181/119 H 95 08/31/21 20:15 36.7 C 112 H 20 188/112 H 94 Laboratory Results Laboratory Results WBC 10.27 K/uL (4.8-10.8) 08/31/21 20:32 RBC 4.88 M/uL (4.2-5.4) 08/31/21 20:32 Hgb 14.6 g/dL (12.0-16.0) 08/31/21 20:32 Hct 44.5 % (37-47) 08/31/21 20: MCV 91.2 fL (80-100) 08/31/21 20:32 MCH 29.9 pg (25-34) 08/31/21 20: MCHC 32.8 g/dL (32-36) 08/31/21 20:32 RDW Std Deviation 46.2 fL (36.4-46.3) 08/31/21 20:32 RDW Coeff of Mari 13.8 % (11.5-14.5) 08/31/21 20: Plt Count 272 K/uL (130-400) 08/31/21 20:32 MPV 10.6 fL (7.4-10.4) H 08/31/21 20:32 Immature Gran % (Auto) 0.3 % 08/31/21 20: Neut % (Auto) 60.2 % 08/31/21 20:32 Lymph % (Auto) 25.0 % 08/31/21 20:32 Sac % (Auto) 11.9 % 08/31/21 20:32 Eos % (Auto) 2.2 % 08/31/21 20:32 Baso % (Auto) 0.4 % 08/31/21:32 Neut # (Auto) 6.18 K/uL (1.4-6.5) 08/31/21 20:32 Lymph # (Auto) 2.57 K/uL (1.2-3.4) 08/31/21 20:32 Sac # (Auto) 1.22 K/uL (0.11-0.59) H 08/31/21 20:32 Eos # (Auto) 0.23 K/uL (0-0.5) 08/31/21 20:32 Baso # (Auto) 0.04 K/uL (0-0.2) 08/31/21 20:32 Immature Gran # (Auto) 0.03 K/uL (0.00-0.02) H 08/31/21 20:32 PT 10.7 Seconds (9.0-12.0) 08/31/21 20:32 INR 1.0 (0.9-1.1) 08/31/21 20:32 APTT 27.3 Seconds (21.0-31.0) 08/31/21 20:32 PTT Ratio 1.0 08/31/21 20:32 Sodium 141 mmol/L (136-145) 08/31/21 20:32 Potassium 3.3 mmol/L (3.5-5.1) L 08/31/21 22:31 Chloride 102 mmol/L (98-107) 08/31/21 20:32 Carbon Dioxide 28 mmol/L (21-32) 08/31/21 20:32 Anion Gap 11 (3-11) 08/31/21 20:32 BUN 20 mg/dl (6-23) 08/31/21 20:32 Creatinine 0.90 mg/dl (0.6-1.2) 08/31/21 20:32 Est Cr Clr Drug Dosing 45.3 ml/min 08/31/21 20:32 Est GFR ( Amer) 67.1 ml/min 08/31/21 20:32 Est GFR (Non-Af Amer) 57.9 ml/min 08/31/21 20:32 BUN/Creatinine Ratio 22.2 (10-20) H 08/31/21 20:32 Glucose 197 mg/dl (70-99(Fasting)) H 08/31/21 20:32 Calcium 9.6 mg/dl (8.5-10.1) 08/31/21 20:32 Phosphorus 3.3 mg/dl (2.5-4.9) 09/01/21 02:14 Magnesium 1.8 mg/dl (1.7-2.4) 08/31/21 20:32 Total Bilirubin 0.5 mg/dl (0.2-1.0) 08/31/21 20: AST 12 U/L (13-39) L 08/31/21 22: ALT 10 U/L (7-52) 08/31/21 20: Alkaline Phosphatase 93 U/L (34-104) 08/31/21 20: Troponin I < 0.03 ng/ml (0-0.04) 08/31/21 20: Total Protein 6.8 gm/dl (6.0-8.3) 08/31/21: Albumin 3.9 gm/dl (3.4-5.0) 08/31/21: Globulin 2.9 gm/dl (2.5-4.0) 08/31/21 Albumin/Globulin Ratio 1.3 (0.9-2) 08/31/21: TSH 2.783 uIu/ml (0.300-4.500) 08/31/21: Urine Color Yellow 08/31/21 20:00 Urine Appearance Clear (Clear) 08/31/21 20: Urine pH 7.5 (4.5-7.5) 08/31/21 20:00 Ur Specific [place] 1.009 (1.000-1.030) 08/31/21 20:00 Urine Protein 2+ (Negative) H 08/31/21 20:00 Urine Glucose (UA) Negative (Negative) 08/31/21 20:00 Urine Ketones Negative (Negative) 08/31/21 20:00 Urine Blood 1+ (Negative) H 08/31/21 20:00 Urine Nitrite Negative (Negative) 08/31/21 20: Urine Bilirubin Negative (Negative) 08/31/21 20:00 Urine Urobilinogen Negative (Negative) 08/31/21 20:00 Ur Leukocyte Esterase Negative (Negative) 08/31/21 20:00 Urine WBC (Auto) 5-10 /hpf (0-5) H 08/31/21 20:00 Urine RBC (Auto) 5-10 /hpf (0-4) H 08/31/21 20:00 U Hyaline Cast (Auto) 0 /lpf (0-5) 08/31/21 20:00 U Epithel Cells (Auto) 5-10 /lpf (0-5) H 08/31/21 20:00 Urine Bacteria (Auto) Negative (Negative) 08/31/21 20:00 SARS-CoV-2, RNA, NAAT NEGATIVE (NEGATIVE) 08/31/21 23:33 Diagnostic Findings Echocardiogram 08/09/18: Mild concentric LVH, low normal EF of 50-55% Grade I diastolic dysfunction Normal RV, LA and RA size Trace aortic regurgitation and mitral regurgitation, trace TR ECG Additional Comments: SR at 87bpm, PACs present with fusion complexes, ZP=039, KPN=091, QAd=004, LAD, LVH Code Status & VTE Plan VTE Prophylaxis Plan VTE Prophylaxis will be ordered: No PG Care Time/CCT Total # of Minutes Spent Total Time Spent with Patient: Total time spent is greater than 50% in coordination of care (as documented) at patient's floor/unit and/or counseling patient: Coding Level of Care Code INT OBSERVATION CARE 50M LVL 2 Diagnoses Heart palpitations R00.2 Hypokalemia E87.6 Chronic kidney disease, stage 3a N18.3 HTN (hypertension) I10 Hypertension type: essential hypertension (1) HTN (hypertension) Hypertension type: essential hypertension Qualified Code(s): I10 - Essential (primary) hypertension
[2021-09-01] MEDS ORDERED: MAGNESIUM SULFATE / D5W 1 GM/100 ML BAG IV SCH (03:00)
[2021-09-01] MEDS ORDERED: POTASSIUM CHLORIDE 20 MEQ in LACTATED RINGER'S 1,000 ML IV SCH (03:00)
[2021-09-01] MEDS ORDERED: LABETALOL HCL IV 5 MG/ML 20ML IV STA ×2 (03:30→23:45)
[2021-09-01] MEDS: ACETAMINOPHEN 325 MG TAB PO PRN ×2 (03:31→23:54)
--- NOTE | 2021-09-01 06:36 | CT Scan Report ---
CT SCAN OF THE BRAIN WITHOUT IV CONTRAST CLINICAL HISTORY: Headache. COMPARISON STUDY: CT of the brain dated 05/05/2021. TECHNIQUE: Unenhanced axial CT scan of the brain is performed from the vertex to the skull base. A do se lowering technique was utilized adhering to the principles of ALARA. CT DOSE: 537.48 mGy.cm FINDINGS: Brain parenchyma: There are age-related involutional changes noting moderate to advanced subcortical and periventricular microangiopathic change. There is no hemorrhage, mass effect, or evidence of acu te territorial ischemia by CT criteria. Small chronic lacunar infarcts are noted in the left thalamus and the right basal ganglia. Bird-white matter differentiation is preserved. No extra-axial fluid co llection is seen. Ventricles, sulci, cisterns: Prominent secondary to involutional change. Intracranial vasculature: There is atherosclerotic calcification of the cavernous carotid and vertebr al arteries. Calvarium: Unremarkable. Sinuses and mastoids: The visualized paranasal sinuses are clear. The mastoid air cells are well pneu matized. Orbits: The bony orbits are grossly intact. There are bilateral ocular lens implants. IMPRESSION: There is no hemorrhage, mass effect, or evidence of acute territorial ischemia by CT federico fernández. ACT 112: Negative or not required by law. Electronically signed by: Kris Douglass M.D. 09/01/2021 6:34 AM
--- NOTE | 2021-09-01 07:52 | Hospitalist Progress Note ---
Date of Service September 01, 2021 Assessment & Plan (1) Heart palpitations: Plan: Acute onset palpitations, warm sensation of discomfort in her back ?MAT on initial presentation per ER. EKG appears with PACs and fusion complexes Echocardiogram 09/01/2021, LV function is mildly reduced 40 to 45%, left atrium is dilated moderate to severe mitral regurg mild aortic regurg elevation right systolic pressures at 30-40 Enlarged LV places her at risk for atrial fibrillation or other atrial arrhythmias continue to monitor for arrhythmias relating with her symptoms Replete electrolytes -TSH WNL -Continue Metoprolol (2) Chronic kidney disease, stage 3a: Plan: Near baseline, BUN=20, Cr=0.9 with CrCl of 45 -Avoid nephrotoxic agents (3) HTN (hypertension): Plan: Blood pressure elevated upon arrival, patient reports it is typically well controlled at home. Appears to be significantly elevated during inpatient visits. Suspect anxiety component contributing at least partially to elevated blood pressure. No symptoms such as TANNER, chest pain, neurological deficits -Continue Metoprolol Felodipine Indapamide Irbesartan (4) Hypokalemia: Plan: -Replete Plan: Code - DNR/DNI per discussion Admission and Anticipated Discharge Date Admission Date: September 01, 2021 Subjective Patient is feeling well with no exacerbations of symptoms since she arrived or recurrence of her symptoms prior to the ER Review of Systems Review of Systems: Mild distress and fatigue no headache, no visual changes no speech or swallowing issues no chest pain, pressure or palpitations no shortness of breath, cough or wheezes no abdominal pain, nausea or vomiting, diarrhea or constipation no dysuria, hematuria or frequency no focal joint pain or swelling no back pain, CVA tenderness or radicular pain no bruising, bleeding or rashes no focal signs of weakness or numbness or altered sensation no complaints of anxiety or depression.. Physical Exam Physical Exam: The patient appeared well nourished and normally developed. Vital signs as documented. Head exam is normocephalic atraumatic Neck is without JVD, thyromegaly, or carotid bruits. Lungs are clear to auscultation, no focal loss of breath sounds Cardiac exam, Rhythm is regular.. No murmurs, rubs or gallops. Abdominal exam reveals normal bowel sounds, soft non tender, no masses Extremities are nonedematous and both pedal pulses are present Neurologic exam is alert and oriented, no focal loss of strength or sensation Skin is without bruises or rashes Psychologically is without concerns for anxiety or depression.. Results & Data Results & Data ([facility]) Vital Signs (Past 12 Hours) Vital Signs Temp Pulse Pulse Resp BP BP Pulse Ox 09/01/21 07:09 81 09/01/21 07:00 98.2 F 81 16 164/90 H 92 09/01/21 03:20 190/95 H 09/01/21 02:10 97.9 F 92 H 18 190/102 H 92 09/01/21 02:00 81 09/01/21 01:01 83 14 180/104 H 09/01/21 00:00 83 17 180/95 H 93 08/31/21 23:20 83 17 94 08/31/21 23:00 81 25 H 165/92 H 95 08/31/21 22:48 90 20 176/95 H 08/31/21 22:10 101 H 19 94 08/31/21 22:02 108 H 22 178/114 H 92 08/31/21 21:00 101 H 22 184/95 H 95 08/31/21 20:50 109 H 21 08/31/21 20:40 105 H 19 96 08/31/21 20:38 105 H 24 181/119 H 95 08/31/21 20:15 98.1 F 112 H 20 188/112 H 94 PG Care Time/CCT Total # of Minutes Spent Total Time Spent with Patient: Total time spent is greater than 50% in coordination of care (as documented) at patient's floor/unit and/or counseling patient: Coding Level of Care Code 47295 Subseq Hosp Care Lvl 2 Diagnoses Heart palpitations R00.2 Hypokalemia E87.6 Chronic kidney disease, stage 3a N18.3 HTN (hypertension) I10 Hypertension type: essential hypertension (1) HTN (hypertension) Hypertension type: essential hypertension Qualified Code(s): I10 - Essential (primary) hypertension
--- NOTE | 2021-09-01 08:10 | XRay Report ---
SINGLE VIEW CHEST CLINICAL HISTORY: Generalized weakness. FINDINGS: 2 AP, portable, upright chest radiographs are compared to study dated 05/20/2019. The heart is enlarged noting atherosclerotic calcification of the thoracic aorta. The pulmonary vasculature is noncongested. Chronic interstitial thickening is similar to previous. Dependent airspace opacities a re seen bilaterally. No large pleural effusion or pneumothorax is identified. The skeletal structures are osteopenic. The bony thorax is grossly intact. IMPRESSION: 1. Cardiomegaly with no radiographic evidence of congestive failure. 2. Dependent airspace opacities likely represent scarring/atelectasis. Clinical correlation will be r equired. ACT 112: Negative or not required by law. Electronically signed by: Kris Douglass M.D. 09/01/2021 8:09 AM
[2021-09-01] MEDS: INDAPAMIDE 1.25 MG TAB PO SCH (09:18)
[2021-09-01] MEDS: IRBESARTAN 150 MG TAB PO SCH (09:18)
[2021-09-01] MEDS: METOPROLOL TARTRATE 100 MG TAB PO SCH ×2 (09:19→20:12)
[2021-09-01] MEDS: FELODIPINE 5 MG TABCR PO SCH (09:19)
--- NOTE | 2021-09-01 14:15 | XCELERA ---
[id number]
[2021-09-01] MEDS ORDERED: traZODone HCL 50 MG TAB PO SCH (21:00)
--- NOTE | 2021-09-02 06:49 | Electrocardiogram Report ---
Test Reason : Blood Pressure : / mmHG Vent. Rate : 105 BPM Atrial Rate : 105 BPM P-R Int : 200 ms QRS Dur : 128 ms QT Int : 372 ms P-R-T Axes : 066 -65 081 degrees QTc Int : 491 ms Sinus tachycardia with frequent Premature ventricular complexes and Fusion complexes Left anterior fascicular block Left ventricular hypertrophy with QRS widening and repolarization abnormality Abnormal ECG When compared with ECG of 20-MAY-2019 08:57, HR has increased Confirmed by Elmer Maldonado ([id number]) on 09/02/2021 6:48:59 AM Referred By: REFERRED SELF Confirmed By:Elmer Maldonado
--- NOTE | 2021-09-02 06:53 | Electrocardiogram Report ---
Test Reason : Blood Pressure : / mmHG Vent. Rate : 087 BPM Atrial Rate : 087 BPM P-R Int : 178 ms QRS Dur : 100 ms QT Int : 390 ms P-R-T Axes : 083 -51 048 degrees QTc Int : 469 ms Sinus rhythm with Premature supraventricular complexes and Aberrant conduction Left anterior fascicular block Left ventricular hypertrophy with repolarization abnormality Abnormal ECG When compared with ECG of 31-AUG-2021 20:36, (unconfirmed) No significant change Confirmed by Elmer Maldonado ([id number]) on 09/02/2021 6:53:09 AM Referred By: REFERRED SELF Confirmed By:Elmer Maldonado
[2021-09-02 07:40] LABS: BUN Creatinine Ratio 23.9 (10-20); Calcium 8.6 mg/dl (8.5-10.1); Creatinine Clr Calc Pharmacy 42.9 ml/min; Est GFR (African American) 65.3 ml/min; Est GFR (Non-African American) 56.4 ml/min; Magnesium 2.1 mg/dl (1.7-2.4); Potassium 3.7 mmol/L (3.5-5.1)
[2021-09-02] MEDS: FELODIPINE 5 MG TABCR PO SCH (07:44)
[2021-09-02] MEDS: IRBESARTAN 150 MG TAB PO SCH (07:44)
[2021-09-02] MEDS: METOPROLOL TARTRATE 100 MG TAB PO SCH (07:44)
[2021-09-02] MEDS: INDAPAMIDE 1.25 MG TAB PO SCH (07:44)
--- NOTE | 2021-09-02 09:40 | Cardiology Consultation ---
Date of Consultation September 02, 2021 Assessment & Plan (1) Heart palpitations: (2) PAC (premature atrial contraction): (3) Cardiomyopathy: (4) Valvular heart disease: (5) HTN (hypertension): ASSESSMENT/PLAN: 1. Palpitations: She has been asymptomatic while hospitalized. ECG and telemetry monitoring has shown sinus rhythm with frequent ectopy. Recommend patient wear a 30 day monitor as an outpatient in hopes of capturing her symptoms. 2. Cardiomyopathy: Mildly reduced LV systolic function with EF 40-45% this admission. Previous echocardiograms showed low normal LV systolic function, so EF not significantly reduced from prior. She does not appear hypervolemic on exam. She is having no anginal symptoms to suggest ischemia, and troponin was negative. Recommend continuing beta ne therapy but will likely add on labetalol and reduce metoprolol dose for afterload reduction and better BP control. Continue ARB. 3. Hypertension: BP has been elevated throughout the admission. Recommend adding labetalol 100 mg BID, which has beta and alpha blocking properties and will better control her blood pressure. Metoprolol dose can then be reduced to 50 mg BID so that she does not become too bradycardic. Can then continue to increase labetalol and wean of metoprolol in the future. Continue other antihypertensive therapy as prescribed including irbesartan, felodipine, and indapamide. 4. Mitral regurgitation: Moderate to severe by echo this admission. She is asymptomatic. Conservative management recommended given her advanced age. Labetalol will help with afterload reduction. Patient was discussed with Dr. Valles who will also be in to see the patient today. Final recommendations to be provided by Dr. Valles. Supervising Physician Co-Signing Physician Notes ADDENDUM (Dr. Valles): Patient seen and examined. Agree with plan as outlined above by Ms. Rodrigo PA-C. Patient notes that she ambulated the hallways 5 times last evening and felt well. No chest pain or dyspnea. She is quite anxious to return home. Historically, her systolic function was borderline low in 2018, slightly lower currently (EF dropped from 50% to 45% over past 4 years). No focal wall motion normalities, suggesting the decline may be secondary to her worsening valvular disease (mitral regurgitation) or persistent hypertension. Both MR and hypertension will benefit from further afterload reduction, thus recommend initiating labetalol 100 mg twice daily. Cut metoprolol back from 100 mg twice daily to 50 mg twice daily. Labetalol will also allow for continued/additional beta-blockade to reduce her atrial ectopy. If she could receive a dose of labetalol fairly promptly, could be observed for the next 6 hours and medications adjusted further if necessary, she could still return home later today. Further med titration could be done as an outpatient, follow-up with me in 2 to 4 weeks. Reason for her near syncope is uncertain, would be useful to have an MCOT monitor for next month to exclude significant dysrhythmia. Thank you for this consultation. History of Present Illness Reason for Consultation: Reduced LV systolic function, palpitations Requesting Physician: Dr. Hernandez History of Present Illness Mrs. Ho is an 85-year-old female with a history of hypertension, CKD, and mitral regurgitation who was admitted on 08/31/21 with palpitations. She states that on Monday evening, she sat down to eat dinner and then developed a warm sensation in her back and shoulders. She then felt as though her heart was pounding. The symptoms lasted about 2 minutes in duration before resolving, but then she went on to have 2 additional episodes over the span of 25-30 mins. She was otherwise asymptomatic with the palpitations. She called her daughter who came over and it was decided that she was going to be taken to the ER for further evaluation. She got up from her chair and felt lightheaded and near-syncopal. The decision was then made to call 911, and she was subsequently brought to the ER via EMS. She has had no further episodes of palpitations since being in the hospital. She was able to get up and ambulate the hallways yesterday. She does use a wheeled walker when walking. She denies any symptoms of chest discomfort or exertional dyspnea. She denies orthopnea or PND. She notes intermittent right lower extremity edema. She denies syncope. She denies abnormal bleeding such as melena, hematochezia, or hematuria. Family history: No family history of CAD. Social history: She is a . She lives alone in an apartment at [facility]. She has a daughter who lives in [place]. She had a son who . Very remote history of smoking. No current alcohol. Allergies Allergy/AdvReac Type Severity Reaction Status Date / Time Penicillins Allergy Unknown HIVES Verified 09/01/21 00:46 Cipro AdvReac Severe "MADE ME Unverified 03/20/17 02:09 DEATHLY ILL" ciprofloxacin AdvReac Severe "MADE ME Unverified 02/18/21 17:38 DEATHLY ILL" metronidazole AdvReac Severe Weakness Verified 09/01/21 00:46 lisinopril AdvReac Intermediate Weakness Verified 09/01/21 00:46 Home Medications Medication Instructions Recorded Confirmed Type calcium carbonate 600 mg-vitamin 1 tab PO PM 08/04/18 09/01/21 History D3 20 mcg (800 unit) chewable tablet (Caltrate 600 plus D) cholecalciferol (vitamin D3) 50 2,000 unit PO QAM 08/04/18 09/01/21 History mcg (2,000 unit) tablet (Vitamin D3) felodipine 10 mg tablet,extended 10 mg PO QAM 08/04/18 09/01/21 History release 24 hr indapamide 1.25 mg tablet 1.25 mg PO QAM 08/04/18 09/01/21 History irbesartan 300 mg tablet 300 mg PO QAM 08/04/18 09/01/21 History metoprolol tartrate 100 mg tablet 100 mg PO BID 08/04/18 09/01/21 History trazodone 50 mg tablet 50 mg PO HS 08/04/18 09/01/21 History acetaminophen 650 mg 650 - 1,300 mg PO Q12H PRN 02/18/21 09/01/21 History tablet,extended release lactobacillus combination no.4 3 0 mmu cells PO DAILY 02/18/21 09/01/21 History billion cell capsule (Probiotic) Patient History Medical History (Updated 08/31/21 @ 23:56 by Johan Michaud DO) Cardiomyopathy Chronic kidney disease, stage 3a Diverticulitis Fibromyalgia HTN (hypertension) Hypokalemia Hypomagnesemia Hyponatremia Small bowel obstruction Valvular heart disease Surgical History H/O exploratory laparotomy SBO in . History of appendectomy History of section x2 History of laminectomy History of laparoscopy to remove fibroid tumor in uterus Family History Other No pertinent family history Denies family history of Myocardial infarction Stroke Social History Smoking Status: Never smoker Second Hand Exposure: No; Do You Dip or Chew Tobacco: No; Hx Alcohol Use: No Hx Substance Use: No Preferred Language: Azerbaijani Communication Ability: Effective Burrer Hand Required: No Beliefs That Will Affect Care: None marital status: / Current Living Situation: Alone Current Living Situation Comment: Lives at [facility] Other Information That Helps Us Care for You: No Feels Safe at Home: Yes Safety Concerns: Feels Safe At This Time Assistive Devices: Wheelchair Review of Systems Review of Systems: All systems reviewed & are unremarkable except as noted in Subjective Physical Exam Physical Exam: Constitutional: Alert, oriented, in no acute distress HEENT: Head is atraumatic and normocephalic. EOMs intact. Sclera non-icteric. Face is symmetric. No perioral cyanosis. Mucous membranes moist Neck: Supple, no JVD, no carotid bruits Pulmonary: Normal respiratory effort, clear to auscultation throughout Cardiac: Regular with frequent ectopy, normal S1 and S2, no gallops, no rubs, no murmurs Extremities: 1+ right and trace left lower extremity edema. No clubbing or cyanosis. 2+ radial pulses Abdomen: Normal bowel sounds, soft, non-tender, no abdominal masses palpated Skin: Normal skin color, turgor, and pigmentation. No rash or skin lesions Neurological: Oriented to person, place, and time Results & Data ([facility]) Vital Signs (Past 12 Hours) Vital Signs Temp Pulse Pulse Resp BP Pulse Ox 09/02/21 07:56 98.4 F 95 H 18 178/84 H 91 09/02/21 02:24 98.4 F 85 18 162/94 H 97 09/01/21 23:22 97.9 F 98 H 18 181/95 H 92 09/01/21 23:11 74 Laboratory Results Laboratory Results WBC 10.27 K/uL (4.8-10.8) 08/31/21 20:32 RBC 4.88 M/uL (4.2-5.4) 08/31/21 20:32 Hgb 14.6 g/dL (12.0-16.0) 08/31/21 20:32 Hct 44.5 % (37-47) 08/31/21: MCV 91.2 fL (80-100) 08/31/21: MCH 29.9 pg (25-34) 08/31/21: MCHC 32.8 g/dL (32-36) 08/31/21: RDW Std Deviation 46.2 fL (36.4-46.3) 08/31/21: RDW Coeff of Mari 13.8 % (11.5-14.5) 08/31/21: Plt Count 272 K/uL (130-400) 08/31/21: MPV 10.6 fL (7.4-10.4) H 08/31/21: Immature Gran % (Auto) 0.3 % 08/31/21: Neut % (Auto) 60.2 % 08/31/21: Lymph % (Auto) 25.0 % 08/31/21: [place] % (Auto) 11.9 % 08/31/21: Eos % (Auto) 2.2 % 08/31/21: Baso % (Auto) 0.4 % 08/31/21: Neut # (Auto) 6.18 K/uL (1.4-6.5) 08/31/21: Lymph # (Auto) 2.57 K/uL (1.2-3.4) 08/31/21: [place] # (Auto) 1.22 K/uL (0.11-0.59) H 08/31/21: Eos # (Auto) 0.23 K/uL (0-0.5) 08/31/21: Baso # (Auto) 0.04 K/uL (0-0.2) 08/31/21: Immature Gran # (Auto) 0.03 K/uL (0.00-0.02) H 08/31/21: PT 10.7 Seconds (9.0-12.0) 08/31/21: INR 1.0 (0.9-1.1) 08/31/21: APTT 27.3 Seconds (21.0-31.0) 04/05/22 20:32 PTT Ratio 1.0 08/31/21 20:32 Sodium 140 mmol/L (136-145) 09/02/21 06:47 Potassium 3.7 mmol/L (3.5-5.1) 09/02/21 06:47 Chloride 105 mmol/L (98-107) 09/02/21 06:47 Carbon Dioxide 27 mmol/L (21-32) 09/02/21 06:47 Anion Gap 8 (3-11) 09/02/21 06:47 BUN 22 mg/dl (6-23) 09/02/21 06:47 Creatinine 0.92 mg/dl (0.6-1.2) 09/02/21 06:47 Est Cr Clr Drug Dosing 42.9 ml/min 09/02/21 06:47 Est GFR ( Amer) 65.3 ml/min 09/02/21 06:47 Est GFR (Non-Af Amer) 56.4 ml/min 09/02/21 06:47 BUN/Creatinine Ratio 23.9 (10-20) H 09/02/21 06:47 Glucose 95 mg/dl (70-99(Fasting)) 09/02/21 06:47 Calcium 8.6 mg/dl (8.5-10.1) 09/02/21 06:47 Phosphorus 3.3 mg/dl (2.5-4.9) 09/01/21 02:14 Magnesium 2.1 mg/dl (1.7-2.4) 09/02/21 06:47 Total Bilirubin 0.5 mg/dl (0.2-1.0) 08/31/21 20:32 AST 12 U/L (13-39) L 08/31/21 22:31 ALT 10 U/L (7-52) 08/31/21 20:32 Alkaline Phosphatase 93 U/L (34-104) 08/31/21 20:32 Troponin I < 0.03 ng/ml (0-0.04) 08/31/21 20:32 Total Protein 6.8 gm/dl (6.0-8.3) 08/31/21 20:32 Albumin 3.9 gm/dl (3.4-5.0) 08/31/21 20:32 Globulin 2.9 gm/dl (2.5-4.0) 08/31/21 20:32 Albumin/Globulin Ratio 1.3 (0.9-2) 08/31/21 20:32 TSH 2.783 uIu/ml (0.300-4.500) 08/31/21 20:32 Urine Color Yellow 08/31/21 20:00 Urine Appearance Clear (Clear) 08/31/21 20:00 Urine pH 7.5 (4.5-7.5) 08/31/21 20:00 Ur Specific [place] 1.009 (1.000-1.030) 08/31/21 20:00 Urine Protein 2+ (Negative) H 08/31/21 20:00 Urine Glucose (UA) Negative (Negative) 08/31/21 20:00 Urine Ketones Negative (Negative) 08/31/21 20: Urine Blood 1+ (Negative) H 08/31/21 20:00 Urine Nitrite Negative (Negative) 08/31/21 20:00 Urine Bilirubin Negative (Negative) 08/31/21 20:00 Urine Urobilinogen Negative (Negative) 08/31/21 20:00 Ur Leukocyte Esterase Negative (Negative) 08/31/21 20:00 Urine WBC (Auto) 5-10 /hpf (0-5) H 08/31/21 20:00 Urine RBC (Auto) 5-10 /hpf (0-4) H 08/31/21 20:00 U Hyaline Cast (Auto) 0 /lpf (0-5) 08/31/21 20:00 U Epithel Cells (Auto) 5-10 /lpf (0-5) H 08/31/21 20:00 Urine Bacteria (Auto) Negative (Negative) 08/31/21 20:00 SARS-CoV-2, RNA, NAAT NEGATIVE (NEGATIVE) 08/31/21 23:33 Diagnostic Findings Chest X-Ray 08/31/21 21:14 1. Cardiomegaly with no radiographic evidence of congestive failure. 2. Dependent airspace opacities likely represent scarring/atelectasis. Clinical correlation will be required. Head CT 08/31/21 21:14: There is no hemorrhage, mass effect, or evidence of acute territorial ischemia by CT criteria. ECG 08/31/21 @ 20:36: Sinus tachycardia with frequent premature supraventricular and fusion complexes. 105 bpm. Left anterior fascicular block. LVH with QRS widening and repolarization abnormality. ECG 08/31/21 @ 22:48: Sinus rhythm with premature supraventricular and fusion complexes. 87 bpm. Left anterior fascicular block. LVH with QRS widening and repolarization abnormality. Echo 09/01/21: Normal LV size with mildly reduced systolic function. EF 40-45%. Regional wall motion abnormalities cannot be excluded due to limited visualization. Severely dilated left atrium. Mild AI. Moderate to severe MR. Elevated RVSP of 30-40 mmHg. PG Care Time/CCT Total # of Minutes Spent Total Time Spent with Patient: Total time spent is greater than 50% in coordination of care (as documented) at patient's floor/unit and/or counseling patient: Coding Level of Care Code 65999 Initial Inpt Care Lvl 3 Diagnoses Heart palpitations R00.2 PAC (premature atrial contraction) I49.1 Cardiomyopathy I42.9 Valvular heart disease I38 HTN (hypertension) I10 Hypertension type: essential hypertension (1) HTN (hypertension) Hypertension type: essential hypertension Qualified Code(s): I10 - Essential (primary) hypertension
[2021-09-02] MEDS ORDERED: LABETALOL HCL 100 MG TAB PO ONE (10:48)
--- NOTE | 2021-09-02 16:10 | Discharge Summary ---
Date of Service September 02, 2021 Admission HPI Per Admitting Provider Lauren Ho is a pleasant 85yo C female presenting to the ER with three episodes of palpitations. Patient was in her usual state of health, this evening eating supper around 17:00 when she developed a warm sensation over her body and palpitations - states that her heart was pounding and beating very fast. This episode lasted several minutes then resolved on its own. She had two similar episodes follow which were also self-limiting after several minutes. She denies chest pain, SOB, dizziness or presyncope. She had some dizziness while trying to ambulate at home which is why family called EMS. No recent illness, no change in medications, no increased caffeine/stimulant use. Upon arrival to the ER patient found to be in tachyarrhythmia thought possibly to be MAT vs AF. Elevated blood pressure - typically well controlled at home. ER Course: Metoprolol 100mg po, KCL 20mEq, Mg x 1gm Principal Diagnosis PALPITATIONS Discharge Exam The patient appeared well Vital signs as documented. Lungs are clear to auscultation and appear unlabored Cardiac exam, Rhythm is regular.. MARÍA Abdominal exam reveals normal bowel sounds, soft non tender, no masses Extremities are nonedematous and both pedal pulses are normal. Neurologic exam is alert and oriented, no focal loss of strength or sensation Skin is without bruises or rashes Psychologically is without concerns for anxiety or depression. Discharge Data Allergies Allergy/AdvReac Type Severity Reaction Status Date / Time Penicillins Allergy Unknown HIVES Verified 09/01/21 00:46 Cipro AdvReac Severe "MADE ME Unverified 03/20/17 02:09 DEATHLY ILL" ciprofloxacin AdvReac Severe "MADE ME Unverified 02/18/21 17:38 DEATHLY ILL" metronidazole AdvReac Severe Weakness Verified 09/01/21 00:46 lisinopril AdvReac Intermediate Weakness Verified 09/01/21 00:46 Consultations 08/31/21 23:35 ED Decision to Admit Stat 09/02/21 07:23 Consult Cardiology Routine Ordered Studies 08/31/21 21:14 CT head/brain wo con Urgent Hospital Course (1) Heart palpitations: Acute onset palpitations, warm sensation of discomfort in her back EKG appears with PACs Echocardiogram 09/01/2021, LV function is mildly reduced 40 to 45%, left atrium is dilated moderate to severe mitral regurg mild aortic regurg elevation right systolic pressures at 30-40 Cardiology recommends consider multiday event monitor, start labetolol 100mg bid and reduce metoprolol to 50 mg bid Enlarged LV places her at risk for atrial fibrillation or other atrial arrhythmias continue to monitor for arrhythmias relating with her symptoms Replete electrolytes -TSH WNL -Continue Metoprolol reduced dose, pt ambulated without symptoms. (2) Chronic kidney disease, stage 3a: Near baseline (3) HTN (hypertension): Blood pressure elevated upon arrival, patient reports it is typically well controlled at home. Appears to be significantly elevated during inpatient visits. Suspect anxiety component contributing at least partially to elevated blood pressure. No symptoms such as TANNER, chest pain, neurological deficits -Continue Metoprolol (reduced dose) Felodipine Indapamide Irbesartan (4) Hypokalemia: -Replete Code - DNR/DNI per discussion Total Time Total Time Spent Total Time Spent (In Minutes): It required greater than 30 minutes to prepare this patient for discharge, updat ed daughter prior to discharge Discharge Plan Discharge Items Patient Disposition: Home - Self-Care Reason For Visit: PALPITATIONS Discharge Diagnosis: PALPITATIONS MITRAL VALVE LEAKING(REGURGITATION) Activity: Per Instructions section Activity Comment: SLOWLY INCREASE ACTIVITY Non-emergency contact: Primary Care Provider and Tile Ditcher Call non-emergency contact if: you have any medication questions Follow-up/Referrals: Hugo Valles MD [Physician] - 09/23/21 1:30 pm Tracie Baeza DO [Primary Care Provider] - 09/06/21 1:30 pm (A follow up appointment has been made for you at Dr. Tracie Baeza's office with Dr. Rinaldi. Please call the office if you need to change this appointment. ) Diet: Regular Addtl Attending Provider Instructions: YOU HAVE BEEN DIAGNOSED WITH PALPITATIONS AND A LEAKING MITRAL VALVE IN YOUR HEART, BOTH OF THESE CAN BE COMMONLY SEEN, DR VALLES HAS RECOMMENDED THAT YOU START A NEW MEDICINE THAT YOU HAVE BEEN GIVEN IN THE HOSPITAL AND WILL CONTINUE AT HOME. HE HAS ALSO RECOMMENDED THAT YOU REDUCE YOUR METOPROLOL WHILE STARTING THE NEW MEDICINE. ALL OTHER MEDICINES ARE THE SAME PLEASE CONTACT DR BAEZA TO INFORM OF NEW MEDICATIONS BUT SHE WILL ALSO GET A COPY OF YOUR DISCHARGE INSTRUCTIONS IF YOU FEEL ILL, LIGHTHEADED OR HAVE PROLONGED SENSATION OF RAPID HEART RATE OR CHEST PAIN RETURN TO THE ER Pending Studies at Discharge: No Stand-Alone Forms: My [facility] [employer], Smoking Cessation Medications and DC Order Prescriptions: New labetalol 100 mg tablet 100 mg PO BID Qty: 60 RF: 0 metoprolol tartrate 50 mg tablet 50 mg PO BID Qty: 60 RF: 6 Continued trazodone 50 mg tablet 50 mg PO HS RF: 0 indapamide 1.25 mg tablet 1.25 mg PO QAM RF: 0 felodipine 10 mg tablet extended release 24 hr 10 mg PO QAM RF: 0 irbesartan 300 mg Tablet 300 mg PO QAM RF: 0 cholecalciferol (vitamin D3) [Vitamin D3] 2,000 unit Tablet 2,000 unit PO QAM RF: 0 Caltrate 600 plus D 600 mg (1,500 mg)-800 unit Tablet,Chewable 1 tab PO PM RF: 0 acetaminophen 650 mg Tablet Extended Release 650 - 1,300 mg PO Q12H PRN (Reason: Pain) RF: 0 Probiotic 3 billion cell Capsule 0 mmu cells PO DAILY RF: 0 Changed metoprolol tartrate 100 mg tablet 50 mg PO BID Qty: 0 RF: 0 Discharge Orders: Discharge Order (Routine); Ordered 09/02/21 Ordered By: Rustam Hernandez Admission Data Admit Date/Time: 09/01/21 00:22 Attending Provider: Rustam Hernandez Admit Provider: Sarah Guallpa Primary Care Provider: Tracie Baeza Other Providers: Sarah Guallpa ; Johan Moreno Other Interventions: Discharge Summary Assessment (RN) Last Done: 09/02/21 15:20 Coding Level of Care Code D/C DAY MANAGEMENT >30 MINS Diagnoses Heart palpitations R00.2 Chronic kidney disease, stage 3a N18.3 HTN (hypertension) I10 Hypertension type: essential hypertension Hypokalemia E87.6
[2021-09-02] MEDS ORDERED: METOPROLOL TARTRATE 50 MG TAB PO SCH (21:00)
== END 2021-09-02 16:50 | disposition home or self-care (01) ==
LOC: ED 20:22 → 2N 20:22 → SUATTDRO 09-01 00:22 → 2N 09-01 01:02

== ENCOUNTER 2021-12-14 18:32 | Inpatient (IN) ==
[2021-12-14] MEDS ORDERED: SODIUM CHLORIDE 0.9% 500 ML IV STA (19:30)
[2021-12-14] MEDS ORDERED: ONDANSETRON INJ 2 MG/ML 2 ML VIAL IV STA (19:30)
[2021-12-14] MEDS ORDERED: ACETAMINOPHEN 1000 MG/100 ML IV IV ONE (19:31)
[2021-12-14 19:39] LABS: Basophils # (auto) 0.04 K/uL (0-0.2); Basophils % (auto) 0.4 %; Eosinophils # (auto) 0.19 K/uL (0-0.50); Hematocrit (blood only) 38.7 % (34.1-44.9); Hemoglobin 12.8 g/dl (12.0-16.0); Immature Granulocytes # (auto) 0.03 K/uL (0.00-0.02); Immature Granulocytes % (auto) 0.3 %; Lymphocytes # (auto) 1.46 K/uL (1.2-3.4); Lymphocytes % (auto) 15.3 %; Mean Corpuscular Hemoglobin 29.6 pg (25.0-34.0); Mean Corpuscular Hgb Conc 33.1 g/dL (32.0-36.0); Mean Corpuscular Volume 89.4 fL (80.0-100.0); Mean Platelet Volume 9.9 fL (9.4-12.3); Monocytes % (auto) 10.5 %; Neutrophils # (auto) 6.84 K/uL (1.4-6.5); Neutrophils % (auto) 71.5 %; Platelet Count 369 K/uL (130-400); RDW Standard Deviation 45.9 fL (36.4-46.3); Red Blood Count 4.33 M/uL (3.93-5.22); White Blood Count 9.56 K/ul (4.8-10.8)
--- NOTE | 2021-12-14 19:47 | Emergency Department Note ---
Impression & Plan Diverticulitis of intestine with perforation and abscess, Abdominal pain, Diverticulitis, Hypokalemia ED Provider Note NAME: MANNIE CAMARENA AGE: 86 SEX: F : 1935 ARRIVES VIA: Ambulance INFORMANT: Patient, ED PROVIDER(S): Johan Michaud DO CHIEF COMPLAINT: Abdominal pain HPI: The patient is an 86-year-old female who presented to the emergency department by ambulance for an evaluation of abdominal pain. She describes upper abdominal pain and distention. She has had ongoing symptoms for the last few weeks. She was seen in our facility recently and had a CT of the abdomen and pelvis. At that time she was diagnosed with a nonspecific enteritis. She was started on medication to help with constipation but her symptoms only started to worsen. She describes no fever. She describes no chest pain or back pain. She denies having any difficulty breathing but states her abdominal pain is started to become much more unbearable. She was seen by her family doctor and had ordered some laboratory studies for the next 24 hours but was unable to have those labs because her pain became worse this evening and she presented to the emergency department. She does have nausea. She denies having any dysuria or hematuria. ROS: See above HPI for pertinent positives & negatives. A total of 10 systems reviewed and were otherwise negative. PAST MEDICAL HISTORY: See Below PAST SURGICAL HISTORY: See Below FAMILY HISTORY: See Below SOCIAL HISTORY: See Below HOME MEDICATIONS: See Below ALLERGIES: See Below VITALS: See Below PHYSICAL EXAMINATION: GENERAL: The patient is awake and alert. The patient is very uncomfortable appearing. EYES: The conjunctivae are clear. The pupils are round and reactive. EARS, NOSE, MOUTH AND THROAT: The nose is without any evidence of any deformity. NECK: The neck is nontender and supple. RESPIRATORY: Normal respiratory effort is noted there is no evidence of wheezing rhonchi or rales CARDIOVASCULAR: Regular rate and rhythm noted there no murmurs rubs or gallops normal S1 normal S2. GASTROINTESTINAL: The abdomen is distended. There is diffuse tenderness to palpation. There is guarding in the lower abdomen. MUSCULOSKELETAL/EXTREMITIES: There is no evidence of gross deformity full range of motion is noted in the hips and shoulders. SKIN: There is no obvious evidence of any rash. There are no petechiae, pallor or cyanosis noted. NEUROLOGIC: Patient is awake alert and oriented x3 MEDICAL DECISION MAKING: The patient is an 86-year-old female who presented to the emergency department for an evaluation of abdominal pain. The patient was seen in our facility recently for similar complaints. At that time she did have a CT of the abdomen and pelvis. She was diagnosed with enteritis. The patient was treated with IV fluids. She was also treated with IV pain medication. She was given IV ant ibiotics after the CAT scan appeared to be consistent with diverticulitis with microperforation and a small abscess. I discussed the patient's laboratory and radiographic studies with her and her family member. I also discussed her case with the on-call [facility] hospitalist. They have agreed to evaluate the patient in the emergency department for further management and disposition Triage Nursing notes reviewed. Prior medical records reviewed Vital Signs: reviewed and remarkable for elevated blood pressure. Differential diagnosis: Etiologies such as appendicitis, diverticulitis, obstruction, inflammatory bowel disease, renal colic, PUD, biliary pathology, pancreatitis, mesenteric ischemia, aortic pathology, infections, genitourinary, UTI, perforated viscus, as well as others were entertained. ER treatment provided: See below Diagnostics interpreted by me: ECG: EKG was obtained in the emergency department. My interpretation is sinus rhythm at 96 bpm. PVCs were noted. LVH was noted by voltage criteria. This was compared to a tracing from August 31, 2021. No changes were noted. Cardiac Monitoring: An order was placed for continuous cardiac monitoring. The monitor shows a rate of 91 bpm with sinus rhythm. Laboratory studies: As stated above and show below. Imaging studies: See below Consultation(s): I discussed this case with Dr. Lo who is on-call for the [facility] hospitalist group. Past Med/Surg History Medical History (Updated 12/14/21 @ 23:20 by Johan Michaud DO) Cardiomyopathy Chronic kidney disease, stage 3a Diverticulitis Fibromyalgia HTN (hypertension) Hypokalemia Hypomagnesemia Hyponatremia Small bowel obstruction Valvular heart disease Surgical History H/O exploratory laparotomy SBO in 1999'. 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 Beliefs That Will Affect Care: None marital status: / Current Living Situation: Alone Current Living Situation Comment: Lives at [facility] Feels Safe at Home: Yes Assistive Devices: Cane, Glasses and Walker Allergies Allergies Allergy/AdvReac Type Severity Reaction Status Date / Time Penicillins Allergy Unknown HIVES Verified 12/14/21 21:46 Cipro AdvReac Severe "MADE ME Unverified 03/20/17 02:09 DEATHLY ILL" ciprofloxacin AdvReac Severe "MADE ME Unverified 12/14/21 21:46 DEATHLY ILL" metronidazole AdvReac Severe Weakness Verified 12/14/21 21:46 lisinopril AdvReac Intermediate Weakness Verified 12/14/21 21:46 Home Meds Home Medications Medication Instructions Recorded Confirmed calcium carbonate 600 mg-vitamin 1 tab PO PM 08/04/18 12/14/21 D3 20 mcg (800 unit) chewable tablet (Caltrate 600 plus D) cholecalciferol (vitamin D3) 50 2,000 unit PO QAM 08/04/18 12/14/21 mcg (2,000 unit) tablet (Vitamin D3) felodipine 10 mg tablet,extended 10 mg PO QAM 08/04/18 12/14/21 release 24 hr indapamide 1.25 mg tablet 1.25 mg PO QAM 08/04/18 12/14/21 irbesartan 300 mg tablet 300 mg PO QAM 08/04/18 12/14/21 trazodone 50 mg tablet 50 mg PO HS 08/04/18 12/14/21 acetaminophen 650 mg 650 - 1,300 mg PO Q12H PRN Pain 02/18/21 12/14/21 tablet,extended release lactobacillus combination no.4 3 0 mmu cells PO DAILY 02/18/21 12/14/21 billion cell capsule (Probiotic) Previous Rx's Medication Instructions Recorded labetalol 100 mg tablet 100 mg PO BID #180 tabs 10/20/21 metoprolol tartrate 50 mg tablet 50 mg PO BID #180 tabs 10/20/21 Results & Data (ED) Vital Signs Vital Signs - 24 hr 12/14/21 18:41 12/14/21 18:43 12/14/21 19:00 Temperature 36.7 C Temperature Source Oral Pulse Rate 94 H 93 H Pulse Rate from SpO2 Sensor Respiratory Rate 18 13 Respiratory Effort / Characteristics Non-Labored Spontaneous Respiratory Depth Normal Respiratory Pattern Regular Blood Pressure 160/86 H 145/74 H Blood Pressure Mean 110 97 Pulse Oximetry 95 Oxygen Delivery Method Room Air Sepsis Recent Fever Within 48 Hours No Sepsis New/Unexplained Change in Mental Status No Sepsis Action Taken by Nursing No Action Required 12/14/21 19:00 12/14/21 19:30 12/14/21 19:30 Temperature Temperature Source Pulse Rate 93 H 95 H Pulse Rate from SpO2 Sensor 94 H 91 H Respiratory Rate 22 26 H Respiratory Effort / Characteristics Respiratory Depth Respiratory Pattern Blood Pressure 157/79 H Blood Pressure Mean 105 Pulse Oximetry 93 97 Oxygen Delivery Method Sepsis Recent Fever Within 48 Hours Sepsis New/Unexplained Change in Mental Status Sepsis Action Taken by Nursing 12/14/21 20:00 12/14/21 20:54 12/14/21 21:00 Temperature Temperature Source Pulse Rate 90 95 H Pulse Rate from SpO2 Sensor 88 97 H 99 H Respiratory Rate 14 28 H Respiratory Effort / Characteristics Respiratory Depth Respiratory Pattern Blood Pressure 158/80 H Blood Pressure Mean 106 Pulse Oximetry 95 92 98 Oxygen Delivery Method Sepsis Recent Fever Within 48 Hours Sepsis New/Unexplained Change in Mental Status Sepsis Action Taken by Nursing 12/14/21 21:30 Temperature Temperature Source Pulse Rate 91 H Pulse Rate from SpO2 Sensor 87 Respiratory Rate 12 Respiratory Effort / Characteristics Respiratory Depth Respiratory Pattern Blood Pressure 157/82 H Blood Pressure Mean 107 Pulse Oximetry 96 Oxygen Delivery Method Sepsis Recent Fever Within 48 Hours Sepsis New/Unexplained Change in Mental Status Sepsis Action Taken by [facility] Medications Current Medication List: was personally reviewed by me Laboratory Data Attestation: I reviewed the patient's lab results. Result diagrams: 12/14/21 18:45 12/14/21 18:45 Lab Results 12/14/21 12/14/21 12/14/21 Range/Units 18:45 18:45 18:45 WBC 9.56 (4.8-10.8) K/ul RBC 4.33 (3.93-5.22) M/uL Hgb 12.8 (12.0-16.0) g/dl Hct 38.7 (34.1-44.9) % MCV 89.4 (80.0-100.0) fL MCH 29.6 (25.0-34.0) pg MCHC 33.1 (32.0-36.0) g/dL RDW Std Deviation 45.9 (36.4-46.3) fL RDW Coeff of Mari 14.0 (11.5-14.5) % Plt Count 369 (130-400) K/uL MPV 9.9 (9.4-12.3) fL Immature Gran % (Auto) 0.3 % Neut % (Auto) 71.5 % Lymph % (Auto) 15.3 % Alcorn % (Auto) 10.5 % Eos % (Auto) 2.0 % Baso % (Auto) 0.4 % Neut # (Auto) 6.84 H (1.4-6.5) K/uL Lymph # (Auto) 1.46 (1.2-3.4) K/uL Alcorn # (Auto) 1.00 H (0.24-0.82) K/uL Eos # (Auto) 0.19 (0-0.50) K/uL Baso # (Auto) 0.04 (0-0.2) K/uL Immature Gran # (Auto) 0.03 H (0.00-0.02) K/uL PT 10.9 (9.0-12.0) Seconds INR 1.0 (0.9-1.1) APTT 27.9 (21.0-31.0) Seconds PTT Ratio 1.0 Sodium 140 (136-145) mmol/L Potassium 3.2 L (3.5-5.1) mmol/L Chloride 99 (98-107) mmol/L Carbon Dioxide 30 (21-32) mmol/L Anion Gap 11 (3-11) BUN 21 (6-23) mg/dl Creatinine 1.08 (0.6-1.2) mg/dl Est Cr Clr Drug Dosing 35.2 ml/min Est GFR ( Amer) 53.5 ml/min Est GFR (Non-Af Amer) 46.1 ml/min BUN/Creatinine Ratio 19.4 (10-20) Glucose 97 (70-99(Fasting)) mg/dl Calcium 9.7 (8.5-10.1) mg/dl Magnesium (1.7-2.4) mg/dl Total Bilirubin 0.8 (0.2-1.0) mg/dl AST 11 L (13-39) U/L ALT 10 (7-52) U/L Alkaline Phosphatase 86 (34-104) U/L Troponin I High Sens 15.6 H (0-14) pg/ml Total Protein 6.8 (6.0-8.3) gm/dl Albumin 3.9 (3.4-5.0) gm/dl Globulin 2.9 (2.5-4.0) gm/dl Albumin/Globulin Ratio 1.3 (0.9-2) Lipase 10 L (11-82) U/L Procalcitonin (0-0.5) ng/ml Urine Color Urine Appearance (Clear) Urine pH (4.5-7.5) Ur Specific [place] (1.000-1.030) Urine Protein (Negative) Urine Glucose (UA) (Negative) Urine Ketones (Negative) Urine Blood (Negative) Urine Nitrite (Negative) Urine Bilirubin (Negative) Urine Urobilinogen (Negative) Ur Leukocyte Esterase (Negative) Urine WBC (Auto) (0-5) /hpf Urine RBC (Auto) (0-4) /hpf U Hyaline Cast (Auto) (0-5) /lpf U Epithel Cells (Auto) (0-5) /lpf Urine Bacteria (Auto) (Negative) SARS-CoV-2, RNA, NAAT (NEGATIVE) 12/14/21 12/14/21 12/14/21 Range/Units 19:01 21:08 22:27 WBC (4.8-10.8) K/ul RBC (3.93-5.22) M/uL Hgb (12.0-16.0) g/dl Hct (34.1-44.9) % MCV (80.0-100.0) fL MCH (25.0-34.0) pg MCHC (32.0-36.0) g/dL RDW Std Deviation (36.4-46.3) fL RDW Coeff of Mari (11.5-14.5) % Plt Count (130-400) K/uL MPV (9.4-12.3) fL Immature Gran % (Auto) % Neut % (Auto) % Lymph % (Auto) % [place] % (Auto) % Eos % (Auto) % Baso % (Auto) % Neut # (Auto) (1.4-6.5) K/uL Lymph # (Auto) (1.2-3.4) K/uL Alcorn # (Auto) (0.24-0.82) K/uL Eos # (Auto) (0-0.50) K/uL Baso # (Auto) (0-0.2) K/uL Immature Gran # (Auto) (0.00-0.02) K/uL PT (9.0-12.0) Seconds INR (0.9-1.1) APTT (21.0-31.0) Seconds PTT Ratio Sodium (136-145) mmol/L Potassium (3.5-5.1) mmol/L Chloride (98-107) mmol/L Carbon Dioxide (21-32) mmol/L Anion Gap (3-11) BUN (6-23) mg/dl Creatinine (0.6-1.2) mg/dl Est Cr Clr Drug Dosing ml/min Est GFR ( Amer) ml/min Est GFR (Non-Af Amer) ml/min BUN/Creatinine Ratio (10-20) Glucose (70-99(Fasting)) mg/dl Calcium (8.5-10.1) mg/dl Magnesium 1.7 (1.7-2.4) mg/dl Total Bilirubin (0.2-1.0) mg/dl AST (13-39) U/L ALT (7-52) U/L Alkaline Phosphatase (34-104) U/L Troponin I High Sens 19.8 H D (0-14) pg/ml Total Protein (6.0-8.3) gm/dl Albumin (3.4-5.0) gm/dl Globulin (2.5-4.0) gm/dl Albumin/Globulin Ratio (0.9-2) Lipase (11-82) U/L Procalcitonin (0-0.5) ng/ml Urine Color [place] Urine Appearance Clear (Clear) Urine pH 7.5 (4.5-7.5) Ur Specific [place] 1.007 (1.000-1.030) Urine Protein Trace H (Negative) Urine Glucose (UA) Negative (Negative) Urine Ketones Negative (Negative) Urine Blood Negative (Negative) Urine Nitrite Negative (Negative) Urine Bilirubin Negative (Negative) Urine Urobilinogen Negative (Negative) Ur Leukocyte Esterase 2+ H (Negative) Urine WBC (Auto) 5-10 H (0-5) /hpf Urine RBC (Auto) 0-4 (0-4) /hpf U Hyaline Cast (Auto) 1-5 (0-5) /lpf U Epithel Cells (Auto) 20-30 H (0-5) /lpf Urine Bacteria (Auto) Negative (Negative) SARS-CoV-2, RNA, NAAT NEGATIVE (NEGATIVE) 12/14/21 Range/Units 22:27 WBC (4.8-10.8) K/ul RBC (3.93-5.22) M/uL Hgb (12.0-16.0) g/dl Hct (34.1-44.9) % MCV (80.0-100.0) fL MCH (25.0-34.0) pg MCHC (32.0-36.0) g/dL RDW Std Deviation (36.4-46.3) fL RDW Coeff of Mari (11.5-14.5) % Plt Count (130-400) K/uL MPV (9.4-12.3) fL Immature Gran % (Auto) % Neut % (Auto) % Lymph % (Auto) % [place]corn % (Auto) % Eos % (Auto) % Baso % (Auto) % Neut # (Auto) (1.4-6.5) K/uL Lymph # (Auto) (1.2-3.4) K/uL [place] # (Auto) (0.24-0.82) K/uL Eos # (Auto) (0-0.50) K/uL Baso # (Auto) (0-0.2) K/uL Immature Gran # (Auto) (0.00-0.02) K/uL PT (9.0-12.0) Seconds INR (0.9-1.1) APTT (21.0-31.0) Seconds PTT Ratio Sodium (136-145) mmol/L Potassium (3.5-5.1) mmol/L Chloride (98-107) mmol/L Carbon Dioxide (21-32) mmol/L Anion Gap (3-11) BUN (6-23) mg/dl Creatinine (0.6-1.2) mg/dl Est Cr Clr Drug Dosing ml/min Est GFR ( Amer) ml/min Est GFR (Non-Af Amer) ml/min BUN/Creatinine Ratio (10-20) Glucose (70-99(Fasting)) mg/dl Calcium (8.5-10.1) mg/dl Magnesium (1.7-2.4) mg/dl Total Bilirubin (0.2-1.0) mg/dl AST (13-39) U/L ALT (7-52) U/L Alkaline Phosphatase (34-104) U/L Troponin I High Sens (0-14) pg/ml Total Protein (6.0-8.3) gm/dl Albumin (3.4-5.0) gm/dl Globulin (2.5-4.0) gm/dl Albumin/Globulin Ratio (0.9-2) Lipase (11-82) U/L Procalcitonin < 0.05 (0-0.5) ng/ml Urine Color Urine Appearance (Clear) Urine pH (4.5-7.5) Ur Specific [place] (1.000-1.030) Urine Protein (Negative) Urine Glucose (UA) (Negative) Urine Ketones (Negative) Urine Blood (Negative) Urine Nitrite (Negative) Urine Bilirubin (Negative) Urine Urobilinogen (Negative) Ur Leukocyte Esterase (Negative) Urine WBC (Auto) (0-5) /hpf Urine RBC (Auto) (0-4) /hpf U Hyaline Cast (Auto) (0-5) /lpf U Epithel Cells (Auto) (0-5) /lpf Urine Bacteria (Auto) (Negative) SARS-CoV-2, RNA, NAAT (NEGATIVE) Administered Medications Discontinued Medications Acetaminophen (Acetaminophen 1000 Mg/100 Ml Iv) 1,000 mg IV ONE ONE Stop: 12/14/21 19:32 Last Admin: 12/14/21 20:46 Dose: 1,000 mg Documented By: JOSELUIS Sodium Chloride (Nss) 500 mls @ 999 mls/hr IV .Q31M STA Stop: 12/14/21 20:00 Last Admin: 12/14/21 19:50 Dose: 999 mls/hr Documented By: JOSELUIS Cefoxitin Sodium (Mefoxin) 2,000 mg in 60 mls @ 100 mls/hr IV NOW STA Stop: 12/14/21 21:34 Last Admin: 12/14/21 21:41 Dose: 100 mls/hr Documented By: JOSELUIS Ioversol (Optiray 320 100ml) 94 ml IV ONCE ONE Stop: 12/14/21 20:30 Last Admin: 12/14/21 20:31 Dose: 94 ml Documented By: [facility] Ondansetron HCl (Ondansetron Inj 2 Mg/Ml 2 Ml Vial) 4 mg IV NOW STA Stop: 12/14/21 19:31 Last Admin: 12/14/21 20:46 Dose: 4 mg Documented By: JOSELUIS Imaging Data Radiologist's Impression: Abdomen/Pelvis CT 12/14/21 19:[address] WITH IV CONTRAST CT DOSE: 450.86 mGy.cm HISTORY: Generalized abdominal pain. TECHNIQUE: Multiaxial CT images of the abdomen and pelvis were performed following the use of intravenous contrast. A dose lowering technique was utilized adhering to the principles of ALARA. COMPARISON STUDY: Abdomen and pelvis CT 11/22/2021. FINDINGS: Mild dependent changes seen within the lung bases. No fractures within the visualized osseous structures. Small fat-containing bilateral inguinal hernias. There are few punctate gallstones. No gallbladder wall thickening. The liver, spleen, right adrenal gland, and pancreas are unremarkable. There is mild nodular thickening of the left adrenal gland, unchanged. The kidneys enhance normally. No hydronephrosis. Moderate calcified plaque within the normal caliber abdominal aorta. The main portal vein is patent. No retroperitoneal lymphadenopathy. The uterus is unremarkable. There is a 2.7 cm right ovarian cyst, unchanged. Extensive colonic diverticulosis. Bowel wall thickening with associated pericolonic fat stranding throughout the majority of the sigmoid colon and distal descending colon. This has progressed in the interval. There is a contained focal perforation/pericolonic abscess within the mid pelvis on image 252 measuring 3.1 x 2.8 cm. Therefore, these findings likely represent an acute diverticulitis at the level the mid sigmoid colon. There appear to be additional inflamed diverticula within the distal descending colon and proximal sigmoid colon consistent with additional sites of acute diverticulitis. A few borderline dilated gas-filled loops of large or small bowel seen throughout the abdomen. T his favors a mild ileus. No evidence for bowel obstruction. IMPRESSION: 1. There appear to be separate areas of acute diverticulitis involving the distal descending colon, proximal sigmoid colon, and mid sigmoid colon. There is an associated focal contained perforation/abscess adjacent to the mid sigmoid colon measuring approximately 3.1 x 2.8 cm. 2. Cholelithiasis. 3. No evidence for bowel obstruction. 4. Additional findings as described above. ACT 112: Negative or not required by law. Electronically signed by: Jesse Elliott M.D. 12/14/2021 8:56 PM Discharge Plan Visit Data Chief Complaint: Abdominal Pain Stated Complaint: abdominal pain ED Provider: Johan Michaud Discharge Problem: Diverticulitis of intestine with perforation and abscess, Abdominal pain, Diverticulitis, Hypokalemia Patient Disposition: Being Evaluated by Hospitalist Forms Stand Alone Forms: My [facility] [place] [employer] Prescriptions Prescriptions: No Action metoprolol tartrate 50 mg tablet 50 mg PO BID Qty: 180 3RF labetalol 100 mg tablet 100 mg PO BID Qty: 180 3RF Rx Instructions: TAKEN IN ADDITION TO REDUCED DOSE METOPROLOL trazodone 50 mg tablet 50 mg PO HS indapamide 1.25 mg tablet 1.25 mg PO QAM felodipine 10 mg tablet extended release 24 hr 10 mg PO QAM irbesartan 300 mg Tablet 300 mg PO QAM cholecalciferol (vitamin D3) [Vitamin D3] 2,000 unit Tablet 2,000 unit PO QAM Caltrate 600 plus D 600 mg (1,500 mg)-800 unit Tablet,Chewable 1 tab PO PM acetaminophen 650 mg Tablet Extended Release 650 - 1,300 mg PO Q12H PRN (Reason: Pain) Probiotic 3 billion cell Capsule 0 mmu cells PO DAILY Referrals Referrals: Tracie Rush DO [Primary Care Provider] -
[2021-12-14 20:05] LABS: Albumin Globulin Ratio 1.3 (0.9-2); Albumin Level 3.9 gm/dl (3.4-5.0); BUN Creatinine Ratio 19.4 (10-20); Bilirubin,Total 0.8 mg/dl (0.2-1.0); Calcium 9.7 mg/dl (8.5-10.1); Creatinine Clr Calc Pharmacy 35.2 ml/min; Est GFR (African American) 53.5 ml/min; Est GFR (Non-African American) 46.1 ml/min; Globulin 2.9 gm/dl (2.5-4.0); Potassium 3.2 mmol/L (3.5-5.1); Total Protein 6.8 gm/dl (6.0-8.3)
[2021-12-14 20:07] LABS: Troponin I High Sensitivity 15.6 pg/ml (0-14)
[2021-12-14 20:27] LABS: Appearance Urine Clear (Clear); Bacteria Urine Automated Negative (Negative); Bilirubin Urine Negative (Negative); Blood Urine Negative (Negative); Color Urine Orange; Epithelial Cell Urine Auto 20-30 /lpf (0-5); Glucose Urine UA Negative (Negative); Ketones Urine Negative (Negative); Leukocyte Esterase Urine 2+ (Negative); Nitrite Urine Negative (Negative); RBC Urine Automated 0-4 /hpf (0-4); Specific Gravity Urine 1.007 (1.000-1.030); Urobilinogen Urine Negative (Negative); pH Urine 7.5 (4.5-7.5)
[2021-12-14] MEDS ORDERED: OPTIRAY 320 100ml IV ONE (20:29)
[2021-12-14 20:34] LABS: Partial Thromboplastin Time 27.9 Seconds (21.0-31.0); Prothrombin Time 10.9 Seconds (9.0-12.0)
[2021-12-14 20:36] LABS: Protein Urine Trace (Negative)
--- NOTE | 2021-12-14 20:58 | CT Scan Report ---
ABDOMEN AND PELVIS CT WITH IV CONTRAST CT DOSE: 450.86 mGy.cm HISTORY: Generalized abdominal pain. TECHNIQUE: Multiaxial CT images of the abdomen and pelvis were performed following the use of intrave nous contrast. A dose lowering technique was utilized adhering to the principles of ALARA. COMPARISON STUDY: Abdomen and pelvis CT 11/22/2021. FINDINGS: Mild dependent changes seen within the lung bases. No fractures within the visualized osseo us structures. Small fat-containing bilateral inguinal hernias. There are few punctate gallstones. No gallbladder wall thickening. The liver, spleen, right adrenal gland, and pancreas are unremarkable. There is mild nodular thickening of the left adrenal gland, unchanged. The kidneys enhance normally. No hydronephrosis. Moderate calcified plaque within the normal caliber abdominal aorta. The main port al vein is patent. No retroperitoneal lymphadenopathy. The uterus is unremarkable. There is a 2.7 cm right ovarian cyst, unchanged. Extensive colonic diverticulosis. Bowel wall thickening with associate d pericolonic fat stranding throughout the majority of the sigmoid colon and distal descending colon. This has progressed in the interval. There is a contained focal perforation/pericolonic abscess with in the mid pelvis on image 252 measuring 3.1 x 2.8 cm. Therefore, these findings likely represent an acute diverticulitis at the level the mid sigmoid colon. There appear to be additional inflamed diver ticula within the distal descending colon and proximal sigmoid colon consistent with additional sites of acute diverticulitis. A few borderline dilated gas-filled loops of large or small bowel seen thro ughout the abdomen. This favors a mild ileus. No evidence for bowel obstruction. IMPRESSION: 1. There appear to be separate areas of acute diverticulitis involving the distal descending colon, p roximal sigmoid colon, and mid sigmoid colon. There is an associated focal contained perforation/absc ess adjacent to the mid sigmoid colon measuring approximately 3.1 x 2.8 cm. 2. Cholelithiasis. 3. No evidence for bowel obstruction. 4. Additional findings as described above. ACT 112: Negative or not required by law. Electronically signed by: Jesse Elliott M.D. 12/14/2021 8:56 PM
[2021-12-14] MEDS ORDERED: cefOXitin 2,000 MG/60 ML BAG IV STA (20:59)
--- NOTE | 2021-12-14 21:36 | History & Physical Report ---
Date of Service December 14, 2021 Assessment & Plan (1) Diverticulitis of intestine with perforation and abscess: Plan: Progressive symptoms x3 weeks. CT A/P showed separate areas of acute diverticulitis involving the distal descending colon, proximal sigmoid colon, and mid sigmoid colon. There is an associated focal contained perforation/abscess adjacent to the mid sigmoid colon measuring approximately 3.1 x 2.8 cm. - admit to med/tele - consulted surgery - appreciate recs - maintain strict NPO pending surgical evaluation - s/p Cefoxitin 2g x1 in ED - continue with Ceftriaxone 2g IV daily and Metronidazole 500mg IV Q8H - note: patient reports "generalized weakness" with taking Flagyl, as well as various other antibiotics - she and her daughter understand that Flagyl is part of 1st line regimen for diverticulitis, and they would like to move forward with trial of Flagyl - follow closely for adverse side effects of abx - blood cx unfortunately collected AFTER Cefoxitin was administered - trend - s/p NSS 500cc bolus - continue with NSS + 20mEq KCl @80cc/hr - PRN Tylenol for pain/fever, PRN Zofran for nausea - Dilaudid 0.25mg IV Q6H PRN for severe pain - trend CBC in AM (2) Hypokalemia: Plan: K 3.2. S/p K rider x1 in ED. Continue with K-containing IVFs as stated above (3) Elevated troponin: Plan: hsTroponin 15.6 --> 19.8. No chest pain and EKG without ST/T abnormalities. Suspect mild demand ischemia due to borderline tachycardia in context of diverticulitis. - trend in AM (4) HTN (hypertension): Plan: - hold home meds while NPO - Lopressor 5mg IV Q6H scheduled - PRN Labetalol 5mg IV for SBP >180 (5) Chronic kidney disease, stage 3a: Plan: Chronic, Cr 1.08 in ED - at baseline. - avoid nephrotoxic agents - trend in AM (6) Insomnia: Plan: Hold home Trazodone while NPO History of Present Illness Chief Complaint: abdominal pain Primary Care Provider: Tracie Rush DO Lauren Ho is an 86yo female with PMHx significant for h/o diverticulitis, CKD3a, mitral regurgitation, HTN, fibromyalgia and knee osteoarthritis who presented to [facility] for worsening abdominal pain x several weeks. Patient presented to [facility] ED on 11/22 for lower abdominal pain and was diagnosed with gastroenteritis and sent home with dicyclomine. However patient reports that her abdominal pain has progressively worsened and is accompanied by nausea, without vomiting. Denies fever/chills, chest pain, palpitations, SOB, dysuria or rash. In the ED the patient was mildly hypertensive and borderline tachycardic. Labs significant for K3.2. CBC/CMP/lipase otherwise WNL. UA positive for 2+ LE and 5- 10 WBC but negative nitrite. CT A/P showed separate areas of acute diverticulitis involving the distal descending colon, proximal sigmoid colon, and mid sigmoid colon. There is an associated focal contained perforation/abscess adjacent to the mid sigmoid colon measuring approximately 3.1 x 2.8 cm. Patient was given NSS 500cc bolus, Zofran 4mg IV x1, Tylenol 1g, and Cefoxitin 2g in ED. Allergies Allergy/AdvReac Type Severity Reaction Status Date / Time Penicillins Allergy Unknown HIVES Verified 12/14/21 21:46 Cipro AdvReac Severe "MADE ME Unverified 03/20/17 02:09 DEATHLY ILL" ciprofloxacin AdvReac Severe "MADE ME Unverified 12/14/21 21:46 DEATHLY ILL" metronidazole AdvReac Severe Weakness Verified 12/14/21 21:46 lisinopril AdvReac Intermediate Weakness Verified 12/14/21 21:46 Home Medications Medication Instructions Recorded Confirmed Type calcium carbonate 600 mg-vitamin 1 tab PO PM 08/04/18 12/14/21 History D3 20 mcg (800 unit) chewable tablet (Caltrate 600 plus D) cholecalciferol (vitamin D3) 50 2,000 unit PO QAM 08/04/18 12/14/21 History mcg (2,000 unit) tablet (Vitamin D3) felodipine 10 mg tablet,extended 10 mg PO QAM 08/04/18 12/14/21 History release 24 hr indapamide 1.25 mg tablet 1.25 mg PO QAM 08/04/18 12/14/21 History irbesartan 300 mg tablet 300 mg PO QAM 08/04/18 12/14/21 History trazodone 50 mg tablet 50 mg PO HS 08/04/18 12/14/21 History acetaminophen 650 mg 650 - 1,300 mg PO Q12H PRN Pain 02/18/21 12/14/21 History tablet,extended release lactobacillus combination no.4 3 0 mmu cells PO DAILY 02/18/21 12/14/21 History billion cell capsule (Probiotic) labetalol 100 mg tablet 100 mg PO BID #180 tabs 10/20/21 12/14/21 Rx metoprolol tartrate 50 mg tablet 50 mg PO BID #180 tabs 10/20/21 12/14/21 Rx Past Med/Surg History Medical History (Updated 12/15/21 @ 11:05 by Saroj Morales MD) Cardiomyopathy Chronic kidney disease, stage 3a Diverticulitis Fibromyalgia HTN (hypertension) Hypokalemia Hypomagnesemia Hyponatremia Small bowel obstruction Valvular heart disease Surgical History H/O exploratory laparotomy SBO in . History of appendectomy History of section x2 History of laminectomy History of laparoscopy to remove fibroid tumor in uterus Family History Other No pertinent family history Denies family history of Myocardial infarction Stroke Social History Smoking Status: Never smoker Second Hand Exposure: No; Hx Alcohol Use: No Hx Substance Use: No Preferred Language: Filipino Communication Ability: Effective Sole Rounder Required: No Beliefs That Will Affect Care: None marital status: / Current Living Situation: Alone Current Living Situation Comment: Pt lives alone in [facility] in [place] How many Children do You have: 1 Other Information That Helps Us Care for You: No Feels Safe at Home: Yes Safety Concerns: Feels Safe At This Time Assistive Devices: Cane and Walker Review of Systems Review of Systems: All systems reviewed & are unremarkable except as noted in HPI & below Physical Exam Physical Exam: General: A&Ox3. NAD. Cooperative. HEENT: Atraumatic, normocephalic. Pulm: CTAB A&P. -wheezes, -rales, -rhonchi. Symmetrical chest rise. No increase work of breathing. No respiratory distress. Cardiac: RRR, -mrg. Radial pulses intact and symmetrical. No LE edema. Abdominal: soft, non-distended, moderate tenderness to palpation of LLQ without rebound or guarding, BS x 4 Skin: warm, dry, no rash Results & Data Results & Data ([facility]) Vital Signs (Past 12 Hours) Vital Signs Temp Pulse Resp BP Pulse Ox O2 Del Method 12/14/21 18:41 36.7 C 94 H 18 160/86 H 95 Room Air Supervising Physician Co-Signing Physician Notes Attending addendum: I have physically seen this patient, have supervised the medical residents activities, and agree with the H&P unless as otherwise noted. Assessment and Plan: Diverticulitis of distal descending, and proximal sigmoid, and mid sigmoid colon/contained perforation abscess in mid sigmoid colon- NPO Ceftriaxone 2 g IV daily Metronidazole 500 mg IV every 8 hours IV fluids as noted Zofran 4 mg IV every 6 hours as needed Acetaminophen 650 mg p.o./IV every 6 hours as needed for mild pain or fever Dilaudid 0.25 mg IV every 6 hours as needed severe pain Famotidine 20 mg IV every 12 hours General surgery consult Hypertension- Admits to medical telemetry for Lopressor 5 mg IV every 6 hours scheduled Remaining orders and notations as noted Resident Activity Tracking Resident Involvement: Resident Care Provided Care Provided: Adult Hospital Medicine (1) Diverticulitis of intestine with perforation and abscess Diverticulitis bleeding: unspecified bleeding status Diverticulitis site: large intestine Qualified Code(s): K57.20 - Diverticulitis of large intestine with perforation and abscess without bleeding (2) HTN (hypertension) Hypertension type: essential hypertension Qualified Code(s): I10 - Essential (primary) hypertension
[2021-12-14 22:56] LABS: Magnesium 1.7 mg/dl (1.7-2.4)
[2021-12-14 23:04] LABS: Troponin I High Sensitivity 19.8 pg/ml (0-14)
[2021-12-14] MEDS ORDERED: POTASSIUM CHLORIDE / WTR 10 MEQ/100 ML PLCT IV ONE (23:20)
[2021-12-14] MEDS ORDERED: ONDANSETRON INJ 2 MG/ML 2 ML VIAL IV PRN (23:41)
[2021-12-14] MEDS ORDERED: HYDROmorphone INJ 0.5 MG/0.5 ML SYR IV PRN (23:41)
[2021-12-14] MEDS ORDERED: LABETALOL HCL IV 5 MG/ML 20ML IV PRN (23:41)
[2021-12-15] MEDS: METOPROLOL TARTRATE 1 MG/ML VIAL IV SCH ×3 (00:36→12:00)
[2021-12-15] MEDS: NSS + 20MEQ KCL 20 MEQ/1,000 ML BAG IV SCH ×2 (00:39→16:00)
[2021-12-15] MEDS: metroNIDAZOLE 500 MG/100 ML BAG IV SCH ×3 (00:43→17:47)
[2021-12-15] MEDS: cefTRIAXone SODIUM 2,000 MG in DEXTROSE 5% 50 ML IV SCH (03:25)
[2021-12-15 05:13] LABS: Basophils # (auto) 0.03 K/uL (0-0.2); Basophils % (auto) 0.3 %; Eosinophils # (auto) 0.26 K/uL (0-0.50); Hematocrit (blood only) 33.7 % (34.1-44.9); Immature Granulocytes # (auto) 0.02 K/uL (0.00-0.02); Immature Granulocytes % (auto) 0.2 %; Lymphocytes # (auto) 1.36 K/uL (1.2-3.4); Lymphocytes % (auto) 15.7 %; Mean Corpuscular Hgb Conc 32.6 g/dL (32.0-36.0); Mean Corpuscular Volume 88.9 fL (80.0-100.0); Mean Platelet Volume 9.5 fL (9.4-12.3); Monocytes % (auto) 12.7 %; Neutrophils % (auto) 68.1 %; Platelet Count 290 K/uL (130-400); RDW Standard Deviation 45.1 fL (36.4-46.3); Red Blood Count 3.79 M/uL (3.93-5.22); White Blood Count 8.67 K/ul (4.8-10.8)
[2021-12-15 05:33] LABS: BUN Creatinine Ratio 16.5 (10-20); Creatinine Clr Calc Pharmacy 41.7 ml/min; Est GFR (African American) 65.7 ml/min; Est GFR (Non-African American) 56.7 ml/min; Magnesium 1.6 mg/dl (1.7-2.4); Potassium 3.3 mmol/L (3.5-5.1)
[2021-12-15] MEDS ORDERED: MAGNESIUM SULFATE / D5W 1 GM/100 ML BAG IV ONE ×2 (05:36→09:45)
[2021-12-15 05:38] LABS: Troponin I High Sensitivity 21.3 pg/ml (0-14)
[2021-12-15] MEDS: POTASSIUM CHLORIDE / WTR 10 MEQ/100 ML PLCT IV SCH ×2 (06:07→08:08)
--- NOTE | 2021-12-15 06:45 | Hospitalist Progress Note ---
Date of Service December 15, 2021 Assessment & Plan (1) Diverticulitis of intestine with perforation and abscess: Plan: 86yo female with PMHx significant for h/o diverticulitis, CKD3a, mitral regurgitation, HTN, fibromyalgia and knee osteoarthritis who presented to [facility] for worsening abdominal pain x several weeks. 1) Diverticulitis of intestine with perforation and abscess: Progressive symptoms x3 weeks. CT A/P showed separate areas of acute diverticulitis involving the distal descending colon, proximal sigmoid colon, and mid sigmoid colon. There is an associated focal contained perforation/abscess adjacent to the mid sigmoid colon measuring approximately 3.1 x 2.8 cm. - admit to med/tele --> moved to med/surg - consulted surgery - no surgery at this time, trial abx first, may start clear liquid diet, if she does not improve will rescan abd - liquid diet placed - s/p Cefoxitin 2g x1 in ED - continue with Ceftriaxone 2g IV daily and Metronidazole 500mg IV Q8H - note: patient reports "generalized weakness" with taking Flagyl, as well as various other antibiotics - she and her daughter understand that Flagyl is part of 1st line regimen for diverticulitis, and they would like to move forward with trial of Flagyl - follow closely for adverse side effects of abx - blood cx unfortunately collected AFTER Cefoxitin was administered - trend - s/p NSS 500cc bolus - continue with NSS + 20mEq KCl @80cc/hr - PRN Tylenol for pain/fever, PRN Zofran for nausea - Dilaudid 0.25mg IV Q6H PRN for severe pain - trend CBC (2) Hypokalemia: K 3.2. S/p K rider x1 in ED. Continue with K-containing IVFs as stated above -continue to monitor (3) Elevated troponin: - downtrending hsTroponin 15.6 --> 21.3. No chest pain and EKG without ST/T abnormalities. Suspect mild demand ischemia due to borderline tachycardia in context of diverticulitis. Currently downtrending (4) HTN (hypertension): - continue home meds indapamide metoprolol labetalol (5) Chronic kidney disease, stage 3a: Chronic, Cr 1.08 in ED - at baseline. - avoid nephrotoxic agents - trend (6) Insomnia: -home Trazodone FENa: liquid diet Code Status: DNR/DNI, does not want additional surgeries, daughter has POLST form DVT PPX: SCDs PT/OT: ordered Case Management: pending Dispo: med/surg Tahira Lugo Do PGY 2, FCM (2) Hypokalemia: (3) Elevated troponin: (4) HTN (hypertension): (5) Chronic kidney disease, stage 3a: (6) Insomnia: Admission and Anticipated Discharge Date Admission Date: December 14, 2021 Supervising Physician Co-Signing Physician Notes I personally examined the patient and verified all bravo points of history and exam, discussed case, and agree with decision making with Dr Lugo feeling better w belly pain just still hurts with pressure vitals noted nad heent nc at mmm breathing unlabored no accessory muscles godo effort skin no rashes no pallor or icterus diverticulitis w abscess - continue abx, supportive care otherwise as above Subjective Patient seen at bedside calm comfortable cooperative, she denies any fever chill nausea vomitting SOB, states abd pain has not gotten worse, has not had a BM yet. Patient understands she will not need surgery yet as we see how the antibiotics work. Patient states she appreciates the doctors during this visit, denies any side effects from flagyl at this time. No acute concerns at this time. Review of Systems Review of Systems: Negative fever chills Negative headache dizziness Negative chest pain palpitations SOB Negative nausea vomitting diarrhea constipation Negative numbness tingling rash swelling Physical Exam Constitutional: WD/WN, vitals as above Eyes: PERRL, conjunctivae normal, anicteric sclerae ENMT: external ear and nose normal, oropharynx normal Neck: trachea midline, no thyromegaly Respiratory: normal respiratory effort, lungs clear to auscultation Cardiovascular: RRR, no murmur, no edema Chest (Breasts): Chest: normal inspection of chest Gastrointestinal (Abdomen): Percussion/Palpation: + abdomen tender and abdomen soft Skin: no rashes, warm and dry Results & Data Results & Data ([facility]) Vital Signs (Past 12 Hours) Vital Signs Pulse Pulse Resp BP BP Pulse Ox O2 Del Method 12/15/21 02:30 94 H 16 91 12/15/21 02:00 84 16 93 12/15/21 01:37 95 H 24 12/15/21 01:01 84 15 93 12/15/21 01:01 166/108 H 12/15/21 01:00 84 21 94 12/15/21 00:30 89 17 95 12/15/21 01:17 88 12/15/21 00:31 85 16 180/91 H 96 Room Air 12/15/21 00:05 98 H 11 L 12/14/21 23:50 162/98 H 12/14/21 23:50 92 H 23 12/14/21 23:30 88 20 91 12/14/21 23:30 163/88 H 12/14/21 23:00 95 H 14 162/97 H 93 12/14/21 22:30 93 H 17 160/103 H 94 12/14/21 22:00 92 H 30 H 151/95 H 97 12/14/21 21:30 91 H 12 157/82 H 96 12/14/21 21:00 95 H 28 H 158/80 H 98 12/14/21 20:54 92 12/14/21 20:00 90 14 95 12/14/21 19:30 95 H 26 H 97 12/14/21 19:30 157/79 H 12/14/21 19:00 93 H 22 93 12/14/21 19:00 145/74 H Diagnostic Findings Laboratory Results WBC 8.67 K/ul (4.8-10.8) 12/15/21 05:03 RBC 3.79 M/uL (3.93-5.22) L 12/15/21 05:03 Hgb 11.0 g/dl (12.0-16.0) L 12/15/21 05:03 Hct 33.7 % (34.1-44.9) L 12/15/21 05:03 MCV 88.9 fL (80.0-100.0) 12/15/21 05:03 MCH 29.0 pg (25.0-34.0) 12/15/21 05:03 MCHC 32.6 g/dL (32.0-36.0) 12/15/21 05:03 RDW Std Deviation 45.1 fL (36.4-46.3) 12/15/21 05:03 RDW Coeff of Mari 14.0 % (11.5-14.5) 12/15/21 05:03 Plt Count 290 K/uL (130-400) 12/15/21 05:03 MPV 9.5 fL (9.4-12.3) 12/15/21 05:03 Immature Gran % (Auto) 0.2 % 12/15/21 05:03 Neut % (Auto) 68.1 % 12/15/21 05:03 Lymph % (Auto) 15.7 % 12/15/21 05:03 [place] % (Auto) 12.7 % 12/15/21 05:03 Eos % (Auto) 3.0 % 12/15/21 05:03 Baso % (Auto) 0.3 % 12/15/21 05:03 Neut # (Auto) 5.90 K/uL (1.4-6.5) 12/15/21 05:03 Lymph # (Auto) 1.36 K/uL (1.2-3.4) 12/15/21 05:03 [place] # (Auto) 1.10 K/uL (0.24-0.82) H 12/15/21 05:03 Eos # (Auto) 0.26 K/uL (0-0.50) 12/15/21 05:03 Baso # (Auto) 0.03 K/uL (0-0.2) 12/15/21 05:03 Immature Gran # (Auto) 0.02 K/uL (0.00-0.02) 12/15/21 05:03 PT 10.9 Seconds (9.0-12.0) 12/14/21 18:45 INR 1.0 (0.9-1.1) 12/14/21 18:45 APTT 27.9 Seconds (21.0-31.0) 12/14/21 18:45 PTT Ratio 1.0 12/14/21 18:45 Sodium 140 mmol/L (136-145) 12/15/21 05:03 Potassium 3.3 mmol/L (3.5-5.1) L 12/15/21 05:03 Chloride 104 mmol/L (98-107) 12/15/21 05:03 Carbon Dioxide 30 mmol/L (21-32) 12/15/21 05:03 Anion Gap 6 (3-11) 12/15/21 05:03 BUN 15 mg/dl (6-23) 12/15/21 05:03 Creatinine 0.91 mg/dl (0.6-1.2) 12/15/21 05:03 Est Cr Clr Drug Dosing 41.7 ml/min 12/15/21 05:03 Est GFR ( Amer) 65.7 ml/min 12/15/21 05:03 Est GFR (Non-Af Amer) 56.7 ml/min 12/15/21 05:03 BUN/Creatinine Ratio 16.5 (10-20) 12/15/21 05:03 Glucose 90 mg/dl (70-99(Fasting)) 12/15/21 05:03 POC Glucose 123 mg/dl (70-99) H 12/15/21 11:38 Calcium 8.0 mg/dl (8.5-10.1) L 12/15/21 05:03 Magnesium 1.6 mg/dl (1.7-2.4) L 12/15/21 05:03 Total Bilirubin 0.8 mg/dl (0.2-1.0) 12/14/21 18:45 AST 11 U/L (13-39) L 12/14/21 18:45 ALT 10 U/L (7-52) 12/14/21 18:45 Alkaline Phosphatase 86 U/L (34-104) 12/14/21 18:45 Troponin I High Sens 21.3 pg/ml (0-14) H 12/15/21 05:03 Total Protein 6.8 gm/dl (6.0-8.3) 12/14/21 18:45 Albumin 3.9 gm/dl (3.4-5.0) 12/14/21 18:45 Globulin 2.9 gm/dl (2.5-4.0) 12/14/21 18:45 Albumin/Globulin Ratio 1.3 (0.9-2) 12/14/21 18:45 Lipase 10 U/L (11-82) L 12/14/21 18:45 Procalcitonin < 0.05 ng/ml (0-0.5) 12/14/21 22:27 Urine Color [place] 12/14/21 19:01 Urine Appearance Clear (Clear) 12/14/21 19:01 Urine pH 7.5 (4.5-7.5) 12/14/21 19:01 Ur Specific [place] 1.007 (1.000-1.030) 12/14/21 19:01 Urine Protein Trace (Negative) H 12/14/21 19:01 Urine Glucose (UA) Negative (Negative) 12/14/21 19:01 Urine Ketones Negative (Negative) 12/14/21 19:01 Urine Blood Negative (Negative) 12/14/21 19:01 Urine Nitrite Negative (Negative) 12/14/21 19:01 Urine Bilirubin Negative (Negative) 12/14/21 19: Urine Urobilinogen Negative (Negative) 12/14/21 19:01 Ur Leukocyte Esterase 2+ (Negative) H 12/14/21 19:01 Urine WBC (Auto) 5-10 /hpf (0-5) H 12/14/21 19:01 Urine RBC (Auto) 0-4 /hpf (0-4) 12/14/21 19: U Hyaline Cast (Auto) 1-5 /lpf (0-5) 12/14/21 19: U Epithel Cells (Auto) 20-30 /lpf (0-5) H 12/14/21 19:01 Urine Bacteria (Auto) Negative (Negative) 12/14/21 19:01 Nasal Screen MRSA (PCR) Negative (Negative) 12/15/21 Unknown SARS-CoV-2, RNA, NAAT NEGATIVE (NEGATIVE) 12/14/21 21:08 Impressions Abdomen/Pelvis CT 12/14/21 19:[address] WITH IV CONTRAST CT DOSE: 450.86 mGy.cm HISTORY: Generalized abdominal pain. TECHNIQUE: Multiaxial CT images of the abdomen and pelvis were performed fol lowing the use of intravenous contrast. A dose lowering technique was utilized adhering to the principles of ALARA. COMPARISON STUDY: Abdomen and pelvis CT 11/22/2021. FINDINGS: Mild dependent changes seen within the lung bases. No fractures within the visualized osseous structures. Small fat-containing bilateral inguinal hernias. There are few punctate gallstones. No gallbladder wall thickening. The liver, spleen, right adrenal gland, and pancreas are unremarkable. There is mild nodular thickening of the left adrenal gland, unchanged. The kidneys enhance normally. No hydronephrosis. Moderate calcified plaque within the normal caliber abdominal aorta. The main portal vein is patent. No retroperitoneal lymphadenopathy. The uterus is unremarkable. There is a 2.7 cm right ovarian cyst, unchanged. Extensive colonic diverticulosis. Bowel wall thickening with associated pericolonic fat stranding throughout the majority of the sigmoid colon and distal descending colon. This has progressed in the interval. There is a contained focal perforation/pericolonic abscess within the mid pelvis on image 252 measuring 3.1 x 2.8 cm. Therefore, these findings likely represent an acute diverticulitis at the level the mid sigmoid colon. There appear to be additional inflamed diverticula within the distal descending colon and proximal sigmoid colon consistent with additional sites of acute diverticulitis. A few borderline dilated gas-filled loops of large or small bowel seen throughout the abdomen. This favors a mild ileus. No evidence for bowel obstruction. IMPRESSION: 1. There appear to be separate areas of acute diverticulitis involving the distal descending colon, proximal sigmoid colon, and mid sigmoid colon. There is an associated focal contained perforation/abscess adjacent to the mid sigmoid colon measuring approximately 3.1 x 2.8 cm. 2. Cholelithiasis. 3. No evidence for bowel obstruction. 4. Additional findings as described above. ACT 112: Negative or not required by law. Electronically signed by: Jesse Elliott M.D. 12/14/2021 8:56 PM Medications Administered Current Inpatient Medications Acetaminophen (Acetaminophen 1000 Mg/100 Ml Iv) 1,000 mg IV Q8H PRN PRN Reason: Mild Pain Stop: 12/17/21 23:40 Hydromorphone HCl (Hydromorphone Inj 0.5 Mg/0.5 Ml Syr) 0.25 mg IV Q6H PRN PRN Reason: Severe Pain Stop: 12/28/21 23:40 Potassium Chloride/Sodium Chloride (Normal Saline W/20 Meq Kcl) 20 meq in 1,000 mls @ 80 mls/hr IV .[id number] [facility] Stop: 01/14/22 00:29 Last Infusion: 12/15/21 12:21 Dose: Infused Ceftriaxone Sodium 2,000 mg/ (Dextrose) 70 mls @ 100 mls/hr IV Q24H [facility]; Protocol Stop: 12/25/21 03:59 Last Infusion: 12/15/21 04:01 Dose: Infused Metronidazole (Flagyl) 500 mg in 100 mls @ 100 mls/hr IV Q8H [facility] Stop: 12/25/21 00:59 Last Infusion: 12/15/21 11:07 Dose: Infused Labetalol HCl (Labetalol Hcl Iv 5 Mg/Ml 20ml) 5 mg IV Q6H PRN PRN Reason: Hypertension Stop: 01/13/22 23:40 Metoprolol Tartrate (Metoprolol Tartrate 1 Mg/Ml Vial) 5 mg IV Q6 JJ Stop: 01/14/22 00:00 Last Admin: 12/15/21 12:00 Dose: 5 mg Ondansetron HCl (Ondansetron Inj 2 Mg/Ml 2 Ml Vial) 4 mg IV Q6H PRN PRN Reason: Nausea Stop: 01/13/22 23:40 Resident Activity Tracking Resident Involvement: Resident Care Provided Care Provided: Adult Hospital Medicine (1) Diverticulitis of intestine with perforation and abscess Diverticulitis bleeding: unspecified bleeding status Diverticulitis site: large intestine Qualified Code(s): K57.20 - Diverticulitis of large intestine with perforation and abscess without bleeding (2) HTN (hypertension) Hypertension type: essential hypertension Qualified Code(s): I10 - Essential (primary) hypertension
--- NOTE | 2021-12-15 11:03 | Surgery Consultation ---
Date of Consultation December 15, 2021 Assessment & Plan (1) Diverticulitis of intestine with abscess without bleeding: Plan 86-year-old woman with diverticulitis and contained perforation. She has no fever, white count, peritoneal signs. She is on cefoxitin and Flagyl. Continue IV antibiotics. Clear liquids diet for now. I discussed with her the possible need for IR drainage of the abscess if she does not improve. We discussed option for surgery, which would be a last resort. We will follow along. If she does not improve over the next few days or if her symptoms worsen, she will require rescanned. History of Present Illness Reason for Consultation: diverticulitis with abscess Requesting Physician: Wander Vick DO Attending Physician: Wander Vick DO History of Present Illness 86-year-old woman presents with 3-week history of left lower quadrant abdominal pain. She states that it will improve and then worsen. She denies nausea or vomiting. She has not had much of an appetite. She denies fevers or chills. She denies diarrhea. She was seen in the hospital [address] scan demonstrated what appeared to be gastroenteritis with some focal small bowel inflammation. CT scan in the emergency department yesterday demonstrated multiple areas of diverticulitis in the colon as well as a 3 cm abscess adjacent to the sigmoid, contained in the mesentery. Also noted was a slightly elevated troponin. She has no chest pain or shortness of breath. EKG was normal. Troponins are being tracked. Allergies Allergy/AdvReac Type Severity Reaction Status Date / Time Penicillins Allergy Unknown HIVES Verified 12/14/21 21:46 Cipro AdvReac Severe "MADE ME Unverified 03/20/17 02:09 DEATHLY ILL" ciprofloxacin AdvReac Severe "MADE ME Unverified 12/14/21 21:46 DEATHLY ILL" metronidazole AdvReac Severe Weakness Verified 12/14/21 21:46 lisinopril AdvReac Intermediate Weakness Verified 12/14/21 21:46 Home Medications Medication Instructions Recorded Confirmed Type calcium carbonate 600 mg-vitamin 1 tab PO PM 08/04/18 12/14/21 History D3 20 mcg (800 unit) chewable tablet (Caltrate 600 plus D) cholecalciferol (vitamin D3) 50 2,000 unit PO QAM 08/04/18 12/14/21 History mcg (2,000 unit) tablet (Vitamin D3) felodipine 10 mg tablet,extended 10 mg PO QAM 08/04/18 12/14/21 History release 24 hr indapamide 1.25 mg tablet 1.25 mg PO QAM 08/04/18 12/14/21 History irbesartan 300 mg tablet 300 mg PO QAM 08/04/18 12/14/21 History trazodone 50 mg tablet 50 mg PO HS 08/04/18 12/14/21 History acetaminophen 650 mg 650 - 1,300 mg PO Q12H PRN Pain 02/18/21 12/14/21 History tablet,extended release lactobacillus combination no.4 3 0 mmu cells PO DAILY 02/18/21 12/14/21 History billion cell capsule (Probiotic) labetalol 100 mg tablet 100 mg PO BID #180 tabs 10/20/21 12/14/21 Rx metoprolol tartrate 50 mg tablet 50 mg PO BID #180 tabs 10/20/21 12/14/21 Rx Patient History Medical History (Updated 12/15/21 @ 11:05 by Saroj Morales MD) Cardiomyopathy Chronic kidney disease, stage 3a Diverticulitis Fibromyalgia HTN (hypertension) Hypokalemia Hypomagnesemia Hyponatremia Small bowel obstruction Valvular heart disease Surgical History H/O exploratory laparotomy SBO in . 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 Beliefs That Will Affect Care: None marital status: / Current Living Situation: Alone Current Living Situation Comment: Pt lives alone in [facility] How many Children do You have: 1 Other Information That Helps Us Care for You: No Feels Safe at Home: Yes Safety Concerns: Feels Safe At This Time Assistive Devices: Cane and Walker Review of Systems Review of Systems: All systems reviewed & are unremarkable except as noted in HPI & below Physical Exam Constitutional: WD/WN, vitals as above Neck: trachea midline, no thyromegaly Respiratory: normal respiratory effort; no respiratory distress and no labored breathing Cardiovascular: Rate/Rhythm: regular rate and regular rhythm Gastrointestinal (Abdomen): Inspection/Auscultation: abdomen normal to inspection and + abdominal surgical scar (Lower midline); abdomen not distended Percussion/Palpation: + abdomen tender (Left lower quadrant) and abdomen soft; no guarding and abdomen not rigid Musculoskeletal: Extremities: no cyanosis and no clubbing Skin: no rashes, warm and dry Psychiatric: A+Ox3, euthymic affect Results & Data ([facility]) Vital Signs (Past 12 Hours) Vital Signs Temp Pulse Pulse Resp BP BP Pulse Ox 12/15/21 08:00 36.5 C 85 16 163/98 H 95 12/15/21 08:00 92 H 12/15/21 02:30 94 H 16 91 12/15/21 02:00 84 16 93 12/15/21 01:37 95 H 24 12/15/21 01:01 84 15 93 12/15/21 01:01 166/108 H 12/15/21 01:00 84 21 94 12/15/21 00:30 89 17 95 12/15/21 01:17 88 12/15/21 00:31 85 16 180/91 H 96 12/15/21 00:05 98 H 11 L 12/14/21 23:50 162/98 H 12/14/21 23:50 92 H 23 12/14/21 23:30 88 20 91 12/14/21 23:30 163/88 H 12/14/21 23:00 95 H 14 162/97 H 93 O2 Del Method 12/15/21 08:00 Room Air 12/15/21 08:00 12/15/21 02:30 12/15/21 02:00 12/15/21 01:37 12/15/21 01:01 12/15/21 01:01 12/15/21 01:00 12/15/21 00:30 12/15/21 01:17 12/15/21 00:31 Room Air 12/15/21 00:05 12/14/21 23:50 12/14/21 23:50 12/14/21 23:30 12/14/21 23:30 12/14/21 23:00 Laboratory Results 12/15/21 12/15/21 12/15/21 Range/Units Unknown 05:03 05:03 WBC 8.67 (4.8-10.8) K/ul RBC 3.79 L (3.93-5.22) M/uL Hgb 11.0 L (12.0-16.0) g/dl Hct 33.7 L (34.1-44.9) % MCV 88.9 (80.0-100.0) fL MCH 29.0 (25.0-34.0) pg MCHC 32.6 (32.0-36.0) g/dL RDW Std Deviation 45.1 (36.4-46.3) fL RDW Coeff of Mari 14.0 (11.5-14.5) % Plt Count 290 (130-400) K/uL MPV 9.5 (9.4-12.3) fL Immature Gran % (Auto) 0.2 % Neut % (Auto) 68.1 % Lymph % (Auto) 15.7 % Oliver % (Auto) 12.7 % Eos % (Auto) 3.0 % Baso % (Auto) 0.3 % Neut # (Auto) 5.90 (1.4-6.5) K/uL Lymph # (Auto) 1.36 (1.2-3.4) K/uL Oliver # (Auto) 1.10 H (0.24-0.82) K/uL Eos # (Auto) 0.26 (0-0.50) K/uL Baso # (Auto) 0.03 (0-0.2) K/uL Immature Gran # (Auto) 0.02 (0.00-0.02) K/uL PT (9.0-12.0) Seconds INR (0.9-1.1) APTT (21.0-31.0) Seconds PTT Ratio Sodium 140 (136-145) mmol/L Potassium 3.3 L (3.5-5.1) mmol/L Chloride 104 (98-107) mmol/L Carbon Dioxide 30 (21-32) mmol/L Anion Gap 6 (3-11) BUN 15 (6-23) mg/dl Creatinine 0.91 (0.6-1.2) mg/dl Est Cr Clr Drug Dosing 41.7 ml/min Est GFR ( Amer) 65.7 ml/min Est GFR (Non-Af Amer) 56.7 ml/min BUN/Creatinine Ratio 16.5 (10-20) Glucose 90 (70-99(Fasting)) mg/dl Calcium 8.0 L (8.5-10.1) mg/dl Magnesium 1.6 L (1.7-2.4) mg/dl Total Bilirubin (0.2-1.0) mg/dl AST (13-39) U/L ALT (7-52) U/L Alkaline Phosphatase (34-104) U/L Troponin I High Sens 21.3 H (0-14) pg/ml Total Protein (6.0-8.3) gm/dl Albumin (3.4-5.0) gm/dl Globulin (2.5-4.0) gm/dl Albumin/Globulin Ratio (0.9-2) Lipase (11-82) U/L Procalcitonin (0-0.5) ng/ml Urine Color Urine Appearance (Clear) Urine pH (4.5-7.5) Ur Specific [place] (1.000-1.030) Urine Protein (Negative) Urine Glucose (UA) (Negative) Urine Ketones (Negative) Urine Blood (Negative) Urine Nitrite (Negative) Urine Bilirubin (Negative) Urine Urobilinogen (Negative) Ur Leukocyte Esterase (Negative) Urine WBC (Auto) (0-5) /hpf Urine RBC (Auto) (0-4) /hpf U Hyaline Cast (Auto) (0-5) /lpf U Epithel Cells (Auto) (0-5) /lpf Urine Bacteria (Auto) (Negative) Nasal Screen MRSA (PCR) Negative (Negative) SARS-CoV-2, RNA, NAAT (NEGATIVE) 12/14/21 12/14/21 12/14/21 Range/Units 22:27 22:27 21:08 WBC (4.8-10.8) K/ul RBC (3.93-5.22) M/uL Hgb (12.0-16.0) g/dl Hct (34.1-44.9) % MCV (80.0-100.0) fL MCH (25.0-34.0) pg MCHC (32.0-36.0) g/dL RDW Std Deviation (36.4-46.3) fL RDW Coeff of Mari (11.5-14.5) % Plt Count (130-400) K/uL MPV (9.4-12.3) fL Immature Gran % (Auto) % Neut % (Auto) % Lymph % (Auto) % Oliver % (Auto) % Eos % (Auto) % Baso % (Auto) % Neut # (Auto) (1.4-6.5) K/uL Lymph # (Auto) (1.2-3.4) K/uL Oliver # (Auto) (0.24-0.82) K/uL Eos # (Auto) (0-0.50) K/uL Baso # (Auto) (0-0.2) K/uL Immature Gran # (Auto) (0.00-0.02) K/uL PT (9.0-12.0) Seconds INR (0.9-1.1) APTT (21.0-31.0) Seconds PTT Ratio Sodium (136-145) mmol/L Potassium (3.5-5.1) mmol/L Chloride (98-107) mmol/L Carbon Dioxide (21-32) mmol/L Anion Gap (3-11) BUN (6-23) mg/dl Creatinine (0.6-1.2) mg/dl Est Cr Clr Drug Dosing ml/min Est GFR ( Amer) ml/min Est GFR (Non-Af Amer) ml/min BUN/Creatinine Ratio (10-20) Glucose (70-99(Fasting)) mg/dl Calcium (8.5-10.1) mg/dl Magnesium 1.7 (1.7-2.4) mg/dl Total Bilirubin (0.2-1.0) mg/dl AST (13-39) U/L ALT (7-52) U/L Alkaline Phosphatase (34-104) U/L Troponin I High Sens 19.8 H D (0-14) pg/ml Total Protein (6.0-8.3) gm/dl Albumin (3.4-5.0) gm/dl Globulin (2.5-4.0) gm/dl Albumin/Globulin Ratio (0.9-2) Lipase (11-82) U/L Procalcitonin < 0.05 (0-0.5) ng/ml Urine Color Urine Appearance (Clear) Urine pH (4.5-7.5) Ur Specific [place] (1.000-1.030) Urine Protein (Negative) Urine Glucose (UA) (Negative) Urine Ketones (Negative) Urine Blood (Negative) Urine Nitrite (Negative) Urine Bilirubin (Negative) Urine Urobilinogen (Negative) Ur Leukocyte Esterase (Negative) Urine WBC (Auto) (0-5) /hpf Urine RBC (Auto) (0-4) /hpf U Hyaline Cast (Auto) (0-5) /lpf U Epithel Cells (Auto) (0-5) /lpf Urine Bacteria (Auto) (Negative) Nasal Screen MRSA (PCR) (Negative) SARS-CoV-2, RNA, NAAT NEGATIVE (NEGATIVE) 12/14/21 12/14/21 12/14/21 Range/Units 19:01 18:45 18:45 WBC (4.8-10.8) K/ul RBC (3.93-5.22) M/uL Hgb (12.0-16.0) g/dl Hct (34.1-44.9) % MCV (80.0-100.0) fL MCH (25.0-34.0) pg MCHC (32.0-36.0) g/dL RDW Std Deviation (36.4-46.3) fL RDW Coeff of Mari (11.5-14.5) % Plt Count (130-400) K/uL MPV (9.4-12.3) fL Immature Gran % (Auto) % Neut % (Auto) % Lymph % (Auto) % Oliver % (Auto) % Eos % (Auto) % Baso % (Auto) % Neut # (Auto) (1.4-6.5) K/uL Lymph # (Auto) (1.2-3.4) K/uL Oliver # (Auto) (0.24-0.82) K/uL Eos # (Auto) (0-0.50) K/uL Baso # (Auto) (0-0.2) K/uL Immature Gran # (Auto) (0.00-0.02) K/uL PT 10.9 (9.0-12.0) Seconds INR 1.0 (0.9-1.1) APTT 27.9 (21.0-31.0) Seconds PTT Ratio 1.0 Sodium 140 (136-145) mmol/L Potassium 3.2 L (3.5-5.1) mmol/L Chloride 99 (98-107) mmol/L Carbon Dioxide 30 (21-32) mmol/L Anion Gap 11 (3-11) BUN 21 (6-23) mg/dl Creatinine 1.08 (0.6-1.2) mg/dl Est Cr Clr Drug Dosing 35.2 ml/min Est GFR ( Amer) 53.5 ml/min Est GFR (Non-Af Amer) 46.1 ml/min BUN/Creatinine Ratio 19.4 (10-20) Glucose 97 (70-99(Fasting)) mg/dl Calcium 9.7 (8.5-10.1) mg/dl Magnesium (1.7-2.4) mg/dl Total Bilirubin 0.8 (0.2-1.0) mg/dl AST 11 L (13-39) U/L ALT 10 (7-52) U/L Alkaline Phosphatase 86 (34-104) U/L Troponin I High Sens 15.6 H (0-14) pg/ml Total Protein 6.8 (6.0-8.3) gm/dl Albumin 3.9 (3.4-5.0) gm/dl Globulin 2.9 (2.5-4.0) gm/dl Albumin/Globulin Ratio 1.3 (0.9-2) Lipase 10 L (11-82) U/L Procalcitonin (0-0.5) ng/ml Urine Color [place] Urine Appearance Clear (Clear) Urine pH 7.5 (4.5-7.5) Ur Specific [place] 1.007 (1.000-1.030) Urine Protein Trace H (Negative) Urine Glucose (UA) Negative (Negative) Urine Ketones Negative (Negative) Urine Blood Negative (Negative) Urine Nitrite Negative (Negative) Urine Bilirubin Negative (Negative) Urine Urobilinogen Negative (Negative) Ur Leukocyte Esterase 2+ H (Negative) Urine WBC (Auto) 5-10 H (0-5) /hpf Urine RBC (Auto) 0-4 (0-4) /hpf U Hyaline Cast (Auto) 1-5 (0-5) /lpf U Epithel Cells (Auto) 20-30 H (0-5) /lpf Urine Bacteria (Auto) Negative (Negative) Nasal Screen MRSA (PCR) (Negative) SARS-CoV-2, RNA, NAAT (NEGATIVE) 12/14/21 Range/Units 18:45 WBC 9.56 (4.8-10.8) K/ul RBC 4.33 (3.93-5.22) M/uL Hgb 12.8 (12.0-16.0) g/dl Hct 38.7 (34.1-44.9) % MCV 89.4 (80.0-100.0) fL MCH 29.6 (25.0-34.0) pg MCHC 33.1 (32.0-36.0) g/dL RDW Std Deviation 45.9 (36.4-46.3) fL RDW Coeff of Mari 14.0 (11.5-14.5) % Plt Count 369 (130-400) K/uL MPV 9.9 (9.4-12.3) fL Immature Gran % (Auto) 0.3 % Neut % (Auto) 71.5 % Lymph % (Auto) 15.3 % Oliver % (Auto) 10.5 % Eos % (Auto) 2.0 % Baso % (Auto) 0.4 % Neut # (Auto) 6.84 H (1.4-6.5) K/uL Lymph # (Auto) 1.46 (1.2-3.4) K/uL Oliver # (Auto) 1.00 H (0.24-0.82) K/uL Eos # (Auto) 0.19 (0-0.50) K/uL Baso # (Auto) 0.04 (0-0.2) K/uL Immature Gran # (Auto) 0.03 H (0.00-0.02) K/uL PT (9.0-12.0) Seconds INR (0.9-1.1) APTT (21.0-31.0) Seconds PTT Ratio Sodium (136-145) mmol/L Potassium (3.5-5.1) mmol/L Chloride (98-107) mmol/L Carbon Dioxide (21-32) mmol/L Anion Gap (3-11) BUN (6-23) mg/dl Creatinine (0.6-1.2) mg/dl Est Cr Clr Drug Dosing ml/min Est GFR ( Amer) ml/min Est GFR (Non-Af Amer) ml/min BUN/Creatinine Ratio (10-20) Glucose (70-99(Fasting)) mg/dl Calcium (8.5-10.1) mg/dl Magnesium (1.7-2.4) mg/dl Total Bilirubin (0.2-1.0) mg/dl AST (13-39) U/L ALT (7-52) U/L Alkaline Phosphatase (34-104) U/L Troponin I High Sens (0-14) pg/ml Total Protein (6.0-8.3) gm/dl Albumin (3.4-5.0) gm/dl Globulin (2.5-4.0) gm/dl Albumin/Globulin Ratio (0.9-2) Lipase (11-82) U/L Procalcitonin (0-0.5) ng/ml Urine Color Urine Appearance (Clear) Urine pH (4.5-7.5) Ur Specific [place] (1.000-1.030) Urine Protein (Negative) Urine Glucose (UA) (Negative) Urine Ketones (Negative) Urine Blood (Negative) Urine Nitrite (Negative) Urine Bilirubin (Negative) Urine Urobilinogen (Negative) Ur Leukocyte Esterase (Negative) Urine WBC (Auto) (0-5) /hpf Urine RBC (Auto) (0-4) /hpf U Hyaline Cast (Auto) (0-5) /lpf U Epithel Cells (Auto) (0-5) /lpf Urine Bacteria (Auto) (Negative) Nasal Screen MRSA (PCR) (Negative) SARS-CoV-2, RNA, NAAT (NEGATIVE) Diagnostic Findings ABDOMEN AND PELVIS CT WITH IV CONTRAST CT DOSE: 450.86 mGy.cm HISTORY: Generalized abdominal pain. TECHNIQUE: Multiaxial CT images of the abdomen and pelvis were performed following the use of intravenous contrast. A dose lowering technique was utilized adhering to the principles of ALARA. COMPARISON STUDY: Abdomen and pelvis CT 11/22/2021. FINDINGS: Mild dependent changes seen within the lung bases. No fractures within the visualized osseous structures. Small fat-containing bilateral inguinal hernias. There are few punctate gallstones. No gallbladder wall thickening. The liver, spleen, right adrenal gland, and pancreas are unremarkable. There is mild nodular thickening of the left adrenal gland, unchanged. The kidneys enhance normally. No hydronephrosis. Moderate calcified plaque within the normal caliber abdominal aorta. The main portal vein is patent. No retroperitoneal lymphaden opathy. The uterus is unremarkable. There is a 2.7 cm right ovarian cyst, unchanged. Extensive colonic diverticulosis. Bowel wall thickening with associated pericolonic fat stranding throughout the majority of the sigmoid colon and distal descending colon. This has progressed in the interval. There is a contained focal perforation/pericolonic abscess within the mid pelvis on image 252 measuring 3.1 x 2.8 cm. Therefore, these findings likely represent an acute diverticulitis at the level the mid sigmoid colon. There appear to be additional inflamed diverticula within the distal descending colon and proximal sigmoid colon consistent with additional sites of acute diverticulitis. A few borderline dilated gas-filled loops of large or small bowel seen throughout the abdomen. This favors a mild ileus. No evidence for bowel obstruction. IMPRESSION: 1. There appear to be separate areas of acute diverticulitis involving the distal descending colon, proximal sigmoid colon, and mid sigmoid colon. There is an associated focal contained perforation/abscess adjacent to the mid sigmoid colon measuring approximately 3.1 x 2.8 cm. 2. Cholelithiasis. 3. No evidence for bowel obstruction. 4. Additional findings as described above.
--- NOTE | 2021-12-15 16:41 | Electrocardiogram Report ---
Test Reason : Blood Pressure : / mmHG Vent. Rate : 096 BPM Atrial Rate : 096 BPM P-R Int : 166 ms QRS Dur : 130 ms QT Int : 384 ms P-R-T Axes : 083 -61 050 degrees QTc Int : 485 ms Sinus rhythm with sinus arrhythmia with frequent Premature ventricular complexes Left axis deviation Left ventricular hypertrophy with QRS widening and repolarization abnormality Abnormal ECG When compared with ECG of 31-AUG-2021 22:48, Premature ventricular complexes are now Present Aberrant conduction is no longer Present QRS duration has increased Confirmed by Johan Moreno ([id number]) on 12/15/2021 4:40:58 PM Referred By: REFERRED SELF Confirmed By:Johan Moreno
--- NOTE | 2021-12-15 17:25 | Billing Data ---
Date of Service December 15, 2021 Coding Level of Care Code 29077 Subseq Hosp Care Lvl 3
[2021-12-15] MEDS: METOPROLOL TARTRATE 50 MG TAB PO SCH (20:11)
[2021-12-15] MEDS: LABETALOL HCL 100 MG TAB PO SCH (20:12)
[2021-12-15] MEDS: traZODone HCL 50 MG TAB PO SCH (20:12)
[2021-12-16] MEDS: metroNIDAZOLE 500 MG/100 ML BAG IV SCH ×3 (01:21→17:41)
[2021-12-16] MEDS: ACETAMINOPHEN 1000 MG/100 ML IV IV PRN ×2 (03:00→21:41)
--- NOTE | 2021-12-16 03:00 | Billing Data ---
Date of Service December 16, 2021 Coding Level of Care Code 82525 Initial Inpt Care Lvl 3
[2021-12-16] MEDS: cefTRIAXone SODIUM 2,000 MG in DEXTROSE 5% 50 ML IV SCH (03:31)
[2021-12-16] MEDS: NSS + 20MEQ KCL 20 MEQ/1,000 ML BAG IV SCH ×2 (03:34→15:40)
[2021-12-16 07:42] LABS: Hematocrit (blood only) 36.8 % (34.1-44.9); Hemoglobin 12.1 g/dl (12.0-16.0); Mean Corpuscular Hemoglobin 29.5 pg (25.0-34.0); Mean Corpuscular Hgb Conc 32.9 g/dL (32.0-36.0); Mean Corpuscular Volume 89.8 fL (80.0-100.0); Mean Platelet Volume 9.9 fL (9.4-12.3); Platelet Count 320 K/uL (130-400); RDW Coefficient of Variation 14.3 % (11.5-14.5); RDW Standard Deviation 46.6 fL (36.4-46.3); White Blood Count 6.81 K/ul (4.8-10.8)
--- NOTE | 2021-12-16 07:53 | Hospitalist Progress Note ---
Date of Service December 16, 2021 Assessment & Plan (1) Diverticulitis of intestine with perforation and abscess: Plan: 86yo female with PMHx significant for h/o diverticulitis, CKD3a, mitral regurgitation, HTN, fibromyalgia and knee osteoarthritis who presented to [facility] for worsening abdominal pain x several weeks. 1) Diverticulitis of intestine with perforation and abscess: Progressive symptoms x3 weeks. CT A/P showed separate areas of acute diverticulitis involving the distal descending colon, proximal sigmoid colon, and mid sigmoid colon. There is an associated focal contained perforation/abscess adjacent to the mid sigmoid colon measuring approximately 3.1 x 2.8 cm. - admit to med/tele --> moved to med/surg - consulted surgery - no surgery at this time, trial abx first, may advance diet, if she does not improve will rescan abd - s/p Cefoxitin 2g x1 in ED - continue with Ceftriaxone 2g IV daily and Metronidazole 500mg IV Q8H - note: patient reports "generalized weakness" with taking Flagyl, as well as various other antibiotics - is willing to try flagyl, no noted side effects at this time - will continue IV abx until pain resolved, then transition to PO Flagyl Cefdinir 14 days total - blood cx unfortunately collected AFTER Cefoxitin was administered - trend - started IVF + KCl, IVF dc'd - PRN Tylenol for pain/fever, PRN Zofran for nausea - Dilaudid 0.25mg IV Q6H PRN for severe pain - trend CBC (2) Hypokalemia: - repleted -K 3.2. S/p K rider x1 in ED and K in IVF, IVF dc'd -continue to monitor (3) Elevated troponin: - downtrending hsTroponin 15.6 --> 21.3. No chest pain and EKG without ST/T abnormalities. Addison spect mild demand ischemia due to borderline tachycardia in context of diverticulitis. Currently downtrending (4) HTN (hypertension): - continue home meds indapamide metoprolol labetalol (5) Chronic kidney disease, stage 3a: Chronic, Cr 1.08 in ED - at baseline. - avoid nephrotoxic agents - trend (6) Insomnia: -home Trazodone FENa: regular low fiber diet Code Status: DNR/DNI, does not want additional surgeries, daughter has POLST form DVT PPX: SCDs Case Management: pending Dispo: med/surg Tahira Lugo Do PGY 2, FCM (2) Hypokalemia: (3) Elevated troponin: (4) HTN (hypertension): (5) Chronic kidney disease, stage 3a: (6) Insomnia: Admission and Anticipated Discharge Date Admission Date: December 14, 2021 Supervising Physician Co-Signing Physician Notes I personally examined the patient and verified all bravo points of history and exam, discussed case, and agree with decision making with Dr Lugo feeling better w belly pain eating well and hungry vitals noted nad heent nc at mmm breathing unlabored no accessory muscles good effort skin no rashes no pallor or icterus abd soft mild LLQ tenderness better than yesterday no guarding/rebound/rigidity diverticulitis w abscess - continue abx, supportive care, advance diet. Hopefully home on p.o. antibiotics soon. Appreciate surgical input. otherwise as above Subjective Patient seen at bedside calm comfortable cooperative, she states abd pain at this timemuch improved tolerated full liquid diet well would like to advance diet further. She states she is feeling well and enjoys talking with everyone. Denies any allergic reactions rash swelling SOB. No acute concerns at this time. Review of Systems Review of Systems: Negative fever chills Negative headache dizziness Negative chest pain palpitations SOB Negative nausea vomitting diarrhea constipation Negative numbness tingling rash swelling Physical Exam Constitutional: WD/WN, vitals as above Eyes: PERRL, conjunctivae normal, anicteric sclerae ENMT: external ear and nose normal, oropharynx normal Neck: trachea midline, no thyromegaly Respiratory: normal respiratory effort, lungs clear to auscultation Cardiovascular: RRR, no murmur, no edema Chest (Breasts): Chest: normal inspection of chest Gastrointestinal (Abdomen): Percussion/Palpation: abdomen soft; abdomen nontender Skin: no rashes, warm and dry Results & Data Results & Data ([facility]) Vital Signs (Past 12 Hours) Vital Signs Temp Pulse Pulse Resp BP Pulse Ox O2 Del Method 12/16/21 00:12 36.5 C 87 18 153/84 H 93 Room Air 12/15/21 19:55 36.5 C 105 H 18 174/98 H 94 Room Air Resident Activity Tracking Resident Involvement: Resident Care Provided Care Provided: Adult Hospital Medicine (1) Diverticulitis of intestine with perforation and abscess Diverticulitis bleeding: unspecified bleeding status Diverticulitis site: large intestine Qualified Code(s): K57.20 - Diverticulitis of large intestine with perforation and abscess without bleeding (2) HTN (hypertension) Hypertension type: essential hypertension Qualified Code(s): I10 - Essential (primary) hypertension
[2021-12-16 08:10] LABS: Calcium 8.1 mg/dl (8.5-10.1); Creatinine Clr Calc Pharmacy 49.3 ml/min; Est GFR (African American) 80.5 ml/min; Est GFR (Non-African American) 69.4 ml/min; Magnesium 1.8 mg/dl (1.7-2.4); Potassium 3.6 mmol/L (3.5-5.1)
[2021-12-16] MEDS: INDAPAMIDE 1.25 MG TAB PO SCH (08:16)
[2021-12-16] MEDS: LABETALOL HCL 100 MG TAB PO SCH ×2 (08:17→21:38)
[2021-12-16] MEDS: METOPROLOL TARTRATE 50 MG TAB PO SCH ×2 (08:18→21:38)
--- NOTE | 2021-12-16 10:18 | Surgery Progress Note ---
Date of Service December 16, 2021 Assessment & Plan (1) Diverticulitis of intestine with abscess without bleeding: Plan 86-year-old woman with diverticulitis and contained perforation with small abscess - afebrile, vss - no leukocytosis - abdominal pain improving Plan: Continue conservative management Continue IV antibiotics Given the complicated diverticulitis she will need a total 14 day antibiotic course. She has not tolerated Cipro and Flagyl oral in past and she has Penicil nita allergy. Her last hospitalization for diverticulitis she was given IV Ertapenem and had IV antibiotic infusions at home but she states she does not want to put that onto her daughter again and does not have anyone else to help. Will relay this to case management and hospitalist service. Continue current medical management Dr. Morales has seen and examined patient, agrees with above Admission and Anticipated Discharge Date Admission Date: December 14, 2021 Supervising Physician Co-Signing Physician Notes I have seen and examined the patient personally and agree with the above assessment plan. We will continue conservative management with IV antibiotics and bowel rest. She continues to improve. We will continue to follow. Subjective feeling better abdominal pain is improving, mostly left side no nausea or vomiting tolerating full liquid diet Physical Exam Constitutional: WD/WN, vitals as above no acute distress and not ill appearing Neck: normal visual inspection and trachea midline Respiratory: normal respiratory effort; no respiratory distress Gastrointestinal (Abdomen): Inspection/Auscultation: abdomen normal to inspection; abdomen not distended Percussion/Palpation: + abdomen tender (LLQ on deep palpation) and abdomen soft; no guarding and abdomen not rigid Skin: no rashes, warm and dry Psychiatric: A+Ox3, euthymic affect Results & Data ([facility]) Vital Signs (Past 12 Hours) Vital Signs Temp Pulse Resp BP Pulse Ox O2 Del Method 12/16/21 07:53 36.5 C 82 16 157/88 H 92 Room Air 12/16/21 00:12 36.5 C 87 18 153/84 H 93 Room Air Laboratory Results 12/16/21 12/16/21 12/15/21 Range/Units 07:15 07:15 14:34 WBC 6.81 (4.8-10.8) K/ul RBC 4.10 (3.93-5.22) M/uL Hgb 12.1 (12.0-16.0) g/dl Hct 36.8 (34.1-44.9) % MCV 89.8 (80.0-100.0) fL MCH 29.5 (25.0-34.0) pg MCHC 32.9 (32.0-36.0) g/dL RDW Std Deviation 46.6 H (36.4-46.3) fL RDW Coeff of Mari 14.3 (11.5-14.5) % Plt Count 320 (130-400) K/uL MPV 9.9 (9.4-12.3) fL Sodium 140 (136-145) mmol/L Potassium 3.6 (3.5-5.1) mmol/L Chloride 106 (98-107) mmol/L Carbon Dioxide 25 (21-32) mmol/L Anion Gap 9 (3-11) BUN 10 (6-23) mg/dl Creatinine 0.77 (0.6-1.2) mg/dl Est Cr Clr Drug Dosing 49.3 ml/min Est GFR ( Amer) 80.5 ml/min Est GFR (Non-Af Amer) 69.4 ml/min BUN/Creatinine Ratio 13.0 (10-20) Glucose 100 H (70-99(Fasting)) mg/dl POC Glucose (70-99) mg/dl Calcium 8.1 L (8.5-10.1) mg/dl Magnesium 1.8 (1.7-2.4) mg/dl Troponin I High Sens 17.7 H (0-14) pg/ml 12/15/21 Range/Units 11:38 WBC (4.8-10.8) K/ul RBC (3.93-5.22) M/uL Hgb (12.0-16.0) g/dl Hct (34.1-44.9) % MCV (80.0-100.0) fL MCH (25.0-34.0) pg MCHC (32.0-36.0) g/dL RDW Std Deviation (36.4-46.3) fL RDW Coeff of Mari (11.5-14.5) % Plt Count (130-400) K/uL MPV (9.4-12.3) fL Sodium (136-145) mmol/L Potassium (3.5-5.1) mmol/L Chloride (98-107) mmol/L Carbon Dioxide (21-32) mmol/L Anion Gap (3-11) BUN (6-23) mg/dl Creatinine (0.6-1.2) mg/dl Est Cr Clr Drug Dosing ml/min Est GFR ( Amer) ml/min Est GFR (Non-Af Amer) ml/min BUN/Creatinine Ratio (10-20) Glucose (70-99(Fasting)) mg/dl POC Glucose 123 H (70-99) mg/dl Calcium (8.5-10.1) mg/dl Magnesium (1.7-2.4) mg/dl Troponin I High Sens (0-14) pg/ml
--- NOTE | 2021-12-16 19:11 | Billing Data ---
Date of Service December 16, 2021 Coding Level of Care Code 21643 Subseq Hosp Care Lvl 3
[2021-12-16] MEDS: traZODone HCL 50 MG TAB PO SCH (21:38)
[2021-12-17] MEDS: metroNIDAZOLE 500 MG/100 ML BAG IV SCH ×2 (01:46→11:37)
[2021-12-17] MEDS: cefTRIAXone SODIUM 2,000 MG in DEXTROSE 5% 50 ML IV SCH (04:45)
--- NOTE | 2021-12-17 07:20 | Hospitalist Progress Note ---
Date of Service December 17, 2021 Assessment & Plan (1) Diverticulitis of intestine with perforation and abscess: Plan: 86yo female with PMHx significant for h/o diverticulitis, CKD3a, mitral regurgitation, HTN, fibromyalgia and knee osteoarthritis who presented to [facility] for worsening abdominal pain x several weeks. 1) Diverticulitis of intestine with perforation and abscess: Progressive symptoms x3 weeks. CT A/P showed separate areas of acute diverticulitis involving the distal descending colon, proximal sigmoid colon, and mid sigmoid colon. There is an associated focal contained perforation/abscess adjacent to the mid sigmoid colon measuring approximately 3.1 x 2.8 cm. - admit to med/tele --> moved to med/surg - consulted surgery - no surgery at this time, trial abx first, may advance diet, if she does not improve will rescan abd - s/p Cefoxitin 2g x1 in ED - continue with Ceftriaxone 2g IV daily and Metronidazole 500mg IV Q8H - note: patient reports "generalized weakness" with taking Flagyl, as well as various other antibiotics - is willing to try flagyl, no noted side effects at this time - will continue IV abx until pain resolved, then transition to PO Flagyl Cefdinir 14 days total - blood cx unfortunately collected AFTER Cefoxitin was administered - trend - started IVF + KCl, IVF dc'd - PRN Tylenol for pain/fever, PRN Zofran for nausea - Dilaudid 0.25mg IV Q6H PRN for severe pain - trend CBC (2) Hypokalemia: - repleted -K 3.2. S/p K rider x1 in ED and K in IVF, IVF dc'd -continue to monitor (3) Elevated troponin: - downtrending hsTroponin 15.6 --> 21.3. No chest pain and EKG without ST/T abnormalities. Addison spect mild demand ischemia due to borderline tachycardia in context of diverticulitis. Currently downtrending (4) HTN (hypertension): - continue home meds indapamide metoprolol labetalol (5) Chronic kidney disease, stage 3a: Chronic, Cr 1.08 in ED - at baseline. - avoid nephrotoxic agents - trend (6) Insomnia: -home Trazodone FENa: regular low fiber diet Code Status: DNR/DNI, does not want additional surgeries, daughter has POLST form DVT PPX: SCDs Case Management: pending Dispo: med/surg Tahira Lugo Do PGY 2, FCM (2) Hypokalemia: (3) Elevated troponin: (4) HTN (hypertension): (5) Chronic kidney disease, stage 3a: (6) Insomnia: Admission and Anticipated Discharge Date Admission Date: December 14, 2021 Results & Data Results & Data ([facility]) Vital Signs (Past 12 Hours) Vital Signs Temp Pulse Resp BP Pulse Ox O2 Del Method 12/16/21 21:30 36.7 C 92 H 18 155/85 H 94 Room Air 12/16/21 23:40 36.8 C 78 16 163/104 H 93 Room Air (1) Diverticulitis of intestine with perforation and abscess Diverticulitis bleeding: unspecified bleeding status Diverticulitis site: large intestine Qualified Code(s): K57.20 - Diverticulitis of large intestine with perforation and abscess without bleeding (2) HTN (hypertension) Hypertension type: essential hypertension Qualified Code(s): I10 - Essential (primary) hypertension
[2021-12-17 09:26] LABS: Hematocrit (blood only) 37.6 % (34.1-44.9); Mean Corpuscular Hemoglobin 28.9 pg (25.0-34.0); Mean Corpuscular Hgb Conc 31.9 g/dL (32.0-36.0); Mean Corpuscular Volume 90.6 fL (80.0-100.0); Mean Platelet Volume 9.7 fL (9.4-12.3); Platelet Count 286 K/uL (130-400); RDW Coefficient of Variation 14.5 % (11.5-14.5); RDW Standard Deviation 47.5 fL (36.4-46.3); Red Blood Count 4.15 M/uL (3.93-5.22); White Blood Count 6.31 K/ul (4.8-10.8)
[2021-12-17 09:49] LABS: BUN Creatinine Ratio 11.2 (10-20); Creatinine Clr Calc Pharmacy 38.1 ml/min; Est GFR (African American) 60.1 ml/min; Est GFR (Non-African American) 51.9 ml/min; Magnesium 1.7 mg/dl (1.7-2.4); Potassium 3.7 mmol/L (3.5-5.1)
--- NOTE | 2021-12-17 10:19 | Surgery Progress Note ---
Date of Service December 17, 2021 Assessment & Plan (1) Diverticulitis of intestine with abscess without bleeding: Plan 86-year-old woman with diverticulitis and contained perforation with small abscess - afebrile, vss - no leukocytosis - abdominal pain continues to improve - mild nausea overnight Plan: Continue conservative management Can transition to oral antibiotics to see how she tolerated. Given the complicated diverticulitis she will need a total 14 day antibiotic course. Can follow-up in surgical office in [address] Morales has seen and examined pt, agrees with above. Admission and Anticipated Discharge Date Admission Date: December 14, 2021 Supervising Physician Co-Signing Physician Notes I have seen and examined the patient agree with above assessment plan. We will continue conservative management for now. She will transition to oral antibiotics today. She will follow-up in the office in 2 weeks. Subjective had some nausea last night, no vomiting, controlled with medication abdominal soreness in left abdomen still present but not worse no fevers or chills tolerated low fiber diet for dinner and so far for breakfast Physical Exam Constitutional: WD/WN, vitals as above no acute distress and not ill appearing Neck: normal visual inspection and trachea midline Respiratory: normal respiratory effort; no respiratory distress and no labored breathing Gastrointestinal (Abdomen): Inspection/Auscultation: abdomen normal to inspection; abdomen not distended Percussion/Palpation: + abdomen tender (LLQ on deep palpation but improved) and abdomen soft; no guarding and abdomen not rigid Skin: no rashes, warm and dry Psychiatric: A+Ox3, euthymic affect Results & Data ([facility]) Vital Signs (Past 12 Hours) Vital Signs Temp Pulse Resp BP Pulse Ox O2 Del Method 12/17/21 07:30 36.7 C 76 18 158/83 H 96 Room Air 12/16/21 23:40 36.8 C 78 16 163/104 H 93 Room Air Laboratory Results 12/17/21 12/17/21 Range/Units 09:08 09:08 WBC 6.31 (4.8-10.8) K/ul RBC 4.15 (3.93-5.22) M/uL Hgb 12.0 (12.0-16.0) g/dl Hct 37.6 (34.1-44.9) % MCV 90.6 (80.0-100.0) fL MCH 28.9 (25.0-34.0) pg MCHC 31.9 L (32.0-36.0) g/dL RDW Std Deviation 47.5 H (36.4-46.3) fL RDW Coeff of Mari 14.5 (11.5-14.5) % Plt Count 286 (130-400) K/uL MPV 9.7 (9.4-12.3) fL Sodium 141 (136-145) mmol/L Potassium 3.7 (3.5-5.1) mmol/L Chloride 106 (98-107) mmol/L Carbon Dioxide 29 (21-32) mmol/L Anion Gap 6 (3-11) BUN 11 (6-23) mg/dl Creatinine 0.98 (0.6-1.2) mg/dl Est Cr Clr Drug Dosing 38.1 ml/min Est GFR ( Amer) 60.1 ml/min Est GFR (Non-Af Amer) 51.9 ml/min BUN/Creatinine Ratio 11.2 (10-20) Glucose 117 H (70-99(Fasting)) mg/dl Calcium 8.0 L (8.5-10.1) mg/dl Magnesium 1.7 (1.7-2.4) mg/dl
[2021-12-17] MEDS: METOPROLOL TARTRATE 50 MG TAB PO SCH (10:40)
[2021-12-17] MEDS: LABETALOL HCL 100 MG TAB PO SCH (10:41)
[2021-12-17] MEDS ORDERED: metroNIDAZOLE 500 MG TAB PO STA (11:10)
[2021-12-17] MEDS ORDERED: CEFDINIR 300 MG CAP PO SCH (11:30)
[2021-12-17] MEDS: INDAPAMIDE 1.25 MG TAB PO SCH (12:25)
--- NOTE | 2021-12-17 17:17 | Discharge Summary ---
Date of Service December 17, 2021 Admission HPI Per Admitting Provider Lauren Ho is an 86yo female with PMHx significant for h/o diverticulitis, CKD3a, mitral regurgitation, HTN, fibromyalgia and knee osteoarthritis who presented to [facility] for worsening abdominal pain x several weeks. Patient presented to [facility] ED on 11/22 for lower abdominal pain and was diagnosed with gastroenteritis and sent home with dicyclomine. However patient reports that her abdominal pain has progressively worsened and is accompanied by nausea, without vomiting. Denies fever/chills, chest pain, palpitations, SOB, dysuria or rash. In the ED the patient was mildly hypertensive and borderline tachycardic. Labs significant for K3.2. CBC/CMP/lipase otherwise WNL. UA positive for 2+ LE and 5- 10 WBC but negative nitrite. CT A/P showed separate areas of acute diverticulitis involving the distal descending colon, proximal sigmoid colon, and mid sigmoid colon. There is an associated focal contained perforation/abscess adjacent to the mid sigmoid colon measuring approximately 3.1 x 2.8 cm. Patient was given NSS 500cc bolus, Zofran 4mg IV x1, Tylenol 1g, and Cefoxitin 2g in ED. Admission Exam Per Admitting Provider General: A&Ox3. NAD. Cooperative. HEENT: Atraumatic, normocephalic. Pulm: CTAB A&P. -wheezes, -rales, -rhonchi. Symmetrical chest rise. No increase work of breathing. No respiratory distress. Cardiac: RRR, -mrg. Radial pulses intact and symmetrical. No LE edema. Abdominal: soft, non-distended, moderate tenderness to palpation of LLQ without rebound or guarding, BS x 4 Skin: warm, dry, no rash Principal Diagnosis Diverticulitis with Perforation and Abcess Discharge Exam Constitutional WD/WN, vitals as above Eyes PERRL, conjunctivae normal, anicteric sclerae ENMT external ear and nose normal, oropharynx normal Neck trachea midline, no thyromegaly Respiratory normal respiratory effort, lungs clear to auscultation Cardiovascular RRR, no murmur, no edema Chest (Breasts) normal inspection/palpation of breasts Gastrointestinal (Abdomen) normal bowel sounds, soft, nontender, no hepatosplenomegaly Skin no rashes, warm and dry Discharge Data Allergies Allergy/AdvReac Type Severity Reaction Status Date / Time Penicillins Allergy Unknown HIVES Verified 12/14/21 21:46 Cipro AdvReac Severe "MADE ME Unverified 03/20/17 02:09 DEATHLY ILL" ciprofloxacin AdvReac Severe "MADE ME Unverified 12/14/21 21:46 DEATHLY ILL" metronidazole AdvReac Severe Weakness Verified 12/14/21 21:46 lisinopril AdvReac Intermediate Weakness Verified 12/14/21 21:46 Consultations 12/14/21 21:25 ED Decision to Admit Stat 12/14/21 23:41 Consult General Surgery Routine Ordered Studies 12/14/21 19:30 CT abd pelvis IV con only Stat Hospital Course (1) Diverticulitis of intestine with perforation and abscess: 86yo female with PMHx significant for h/o diverticulitis, CKD3a, mitral regurgitation, HTN, fibromyalgia and knee osteoarthritis who presented to [facility] for worsening abdominal pain x several weeks. -started cefdinir 300mg BID 12 days -started Flagyl 500mg TID 12 days 1) Diverticulitis of intestine with perforation and abscess: Progressive symptoms x3 weeks. CT A/P showed separate areas of acute diverticulitis involving the distal descending colon, proximal sigmoid colon, and mid sigmoid colon. There is an associated focal contained perforation/abscess adjacent to the mid sigmoid colon measuring approximately 3.1 x 2.8 cm. CBC unremarkable. Consulted surgery - no surgery at this time, trial abx first, may advance diet, if she does not improve can rescan abd. Recieved IV Cefoxitin in ED, switched to Ceftriaxone IV and Metronidazole IV. Patient exhibited no allergic reaction while on Flagyl in hospital. Transition to PO Flagyl Cefdinir 14 days total (12 days outpt). Blood culture neg. Given IVF, dilaudid for pain control in hospital. (2) Hypokalemia: - repleted K 3.2. repleted. (3) Elevated troponin: - downtrending hsTroponin max 21.3. No chest pain and EKG without ST/T abnormalities. Suspect mild demand ischemia due to borderline tachycardia in context of diverticulitis. downtrending (4) HTN (hypertension): Continue home meds indapamide metoprolol labetalol (5) Chronic kidney disease, stage 3a: Chronic, Cr 1.08 in ED - at baseline. (6) Insomnia: Continue home Trazodone (2) Hypokalemia: (3) Elevated troponin: (4) HTN (hypertension): (5) Chronic kidney disease, stage 3a: (6) Insomnia: Total Time Total Time Spent Total Time Spent (In Minutes): >30 Discharge Plan Discharge Items Patient Disposition: Home - Self-Care Reason For Visit: COMPLICATED DIVERTICULITIS Discharge Diagnosis: Diverticulitis with Perforation and Abcess Activity: Resume your previous activity Non-emergency contact: Primary Care Provider Call non-emergency contact if: you have any medication questions, your symptoms worsen, your pain is worsening and you have a fever Follow-up/Referrals: Tracie Rush DO [Primary Care Provider] - Diet: Regular Addtl Attending Provider Instructions: You were admitted to the hospital for Diverticulitis with Perforation and Abcess. You were treated with antibiotics. Please continue to take the antibiotics Cefdinir 300mg twice a day, and Flagyl 500mg three times a day for the next 12 days to ensure complete resolution of your Diverticulitis and Abcess. If you feel your symptoms do not resolve, please contact Surgery for drainage of your abcess. We have reviewed your allergy list and have determined that you do not have an allergy or adverse reaction to the medication Flagyl. Likely, in the past your reactions were due to either the ciprofloxacin you were on, which can often make people feel weaker, or your previous bout of diverticulitis getting slightly worse before it got better. In the future, you may use Flagyl as a treatment option for possible infections Please follow up with your PCP in 1 week of discharge A discharge summary will be sent to your primary care physician to ensure continuity of care. Please bring this discharge summary with you to your next office appointment so that your provider can review it at that time. Follow-up appointments: Make a follow-up appointment with your PCP within the next week. It is very important that you follow up with them shortly after discharge from the hospital. Keep all your follow-up appointments as already scheduled. If you cannot make an appointment, notify your provider. If you need to contact surgery, you can find them at [phone] Medications: Your medication list has been reviewed and reconciled upon discharge to ensure accuracy and continuity of care. An updated list of all your medications is included with your hospital discharge paperwork. Please review this list closely, and make note of any changes. * We sent a new medication called Cefdinir to your pharmacy. Take Cefdinir 300mg one tablet twice a day for 12 days. * We sent a new medication called Flagyl to your pharmacy. Take Flagyl 500mg one tablet three times a day for 12 days. Take your medications as instructed; do not skip a dose of your medicines. Make sure all of your doctors know every medicine you are taking (including [id number] medicines, vitamins, and supplements). Call your primary care provider before taking any new medicines (including [id number] medicines, vitamins, and supplements), because some of these may interact with your current medications, or may make your symptoms worse. Tell your primary care provider if you cannot afford your medications. CONTACT YOUR PRIMARY CARE PROVIDER if you experience any of the following: Difficulty breathing, fever, chills Worsening abdominal pain, bloody stool Difficulty following your treatment plan, or difficulty taking medications CALL 911 OR GO TO THE EMERGENCY DEPARTMENT if you experience any of the following: Sudden, severe abdominal pain or nausea/vomiting Severe chest pain, or chest pain that radiates (moves) to your jaw or arm Sudden, severe shortness of breath or difficulty breathing Thank you for allowing us to participate in your care. Pending Studies at Discharge: No Stand-Alone Forms: My [facility], Smoking Cessation Medications and DC Order Prescriptions: New cefdinir 300 mg Capsule 300 mg PO BID 12 Days Qty: 24 0RF metronidazole 500 mg Tablet 500 mg PO Q8H 12 Days Qty: 36 0RF Continued metoprolol tartrate 50 mg tablet 50 mg PO BID Qty: 180 3RF labetalol 100 mg tablet 100 mg PO BID Qty: 180 3RF Rx Instructions: TAKEN IN ADDITION TO REDUCED DOSE METOPROLOL trazodone 50 mg tablet 50 mg PO HS indapamide 1.25 mg tablet 1.25 mg PO QAM felodipine 10 mg tablet extended release 24 hr 10 mg PO QAM irbesartan 300 mg Tablet 300 mg PO QAM cholecalciferol (vitamin D3) [Vitamin D3] 2,000 unit Tablet 2,000 unit PO QAM Caltrate 600 plus D 600 mg (1,500 mg)-800 unit Tablet,Chewable 1 tab PO PM acetaminophen 650 mg Tablet Extended Release 650 - 1,300 mg PO Q12H PRN (Reason: Pain) Probiotic 3 billion cell Capsule 0 mmu cells PO DAILY Discharge Orders: Discharge Order (Routine); Ordered 12/17/21 Ordered By: Tahira Yates/Other Patient Handouts: Low-Fiber Diet, Anatomy of the Digestive System, Diverticulitis Dc Admission Data Admit Date/Time: 12/14/21 22:25 Attending Provider: Wander Vick Admit Provider: Moses Bustos Primary Care Provider: Tracie Rush Other Providers: Josesito Lo ; Saroj Morales Other Interventions: Discharge Summary Assessment (RN) Last Done: 12/17/21 17:47 Supervising Physician Co-Signing Physician Notes I personally examined the patient and verified all bravo points of history and exam, discussed case, and agree with decision making with Dr Parish calhoun better. Eating well. Discussed with surgery at the bedsidewe both answered all questions to the best of our ability and patient satisfaction. vitals noted nad heent nc at mmm breathing unlabored no accessory muscles good effort skin no rashes no pallor or icterus abd soft mild LLQ tenderness better than yesterday yet again, at this point fairly minimal, and no guarding/rebound/rigidity diverticulitis w abscess -appears safe for transition to p.o. antibiotics whenever I see her this morningshe had understandable reticence about thisafter we discussed things at length, I suspect her previous adverse reactions were to Cipro. Switched to p.o. cefdinir and p.o. metronidazolefollowed up later in the dayshe was doing well. Safe/stable for home. Prolonged course of antibiotics and close outpatient PCP/surgical follow- up otherwise as above Resident Activity Tracking Resident Involvement: Resident Care Provided Care Provided: Adult Hospital Medicine
[2021-12-17] MEDS ORDERED: metroNIDAZOLE 500 MG TAB PO SCH (17:30)
--- NOTE | 2021-12-17 19:08 | Billing Data ---
Date of Service December 17, 2021 Coding Level of Care Code D/C DAY MANAGEMENT >30 MINS
== END 2021-12-17 18:51 | disposition home or self-care (01) | DRG 392 ==
LOC: ED 18:32 → 1E 22:25 → SUATTDRO 22:25 → 1E 23:39 → 2N 23:41 → 3N 12-15 19:51

== ENCOUNTER 2021-12-19 20:34 | Observation (INO) ==
[2021-12-19] MEDS ORDERED: SODIUM CHLORIDE 0.9% 1000ML 1,000 ML IV STA (20:41)
[2021-12-19 21:06] LABS: Basophils # (auto) 0.06 K/uL (0-0.2); Basophils % (auto) 0.4 %; Eosinophils # (auto) 0.25 K/uL (0-0.50); Eosinophils % (auto) 1.9 %; Hematocrit (blood only) 36.1 % (34.1-44.9); Immature Granulocytes # (auto) 0.05 K/uL (0.00-0.02); Immature Granulocytes % (auto) 0.4 %; Lymphocytes # (auto) 1.57 K/uL (1.2-3.4); Lymphocytes % (auto) 11.7 %; Mean Corpuscular Hemoglobin 29.6 pg (25.0-34.0); Mean Corpuscular Hgb Conc 33.2 g/dL (32.0-36.0); Mean Corpuscular Volume 89.1 fL (80.0-100.0); Monocytes # (auto) 1.49 K/uL (0.24-0.82); Monocytes % (auto) 11.1 %; Neutrophils # (auto) 9.95 K/uL (1.4-6.5); Neutrophils % (auto) 74.5 %; Platelet Count 282 K/uL (130-400); RDW Coefficient of Variation 14.8 % (11.5-14.5); RDW Standard Deviation 47.5 fL (36.4-46.3); Red Blood Count 4.05 M/uL (3.93-5.22); White Blood Count 13.37 K/ul (4.8-10.8)
[2021-12-19] MEDS ORDERED: ONDANSETRON INJ 2 MG/ML 2 ML VIAL IV STA (21:07)
[2021-12-19] MEDS ORDERED: ACETAMINOPHEN 1000 MG/100 ML IV IV STA (21:07)
--- NOTE | 2021-12-19 21:08 | Emergency Department Note ---
Impression & Plan Abdominal pain, LLQ (left lower quadrant), Diverticulitis, Nausea ED Provider Note INFORMANT: Patient and family ED PROVIDER(S): Cody Liriano MD CHIEF COMPLAINT: Abdominal pain PLAN: Disposition: Admitted Condition: Good Outpatient prescription management: none Referral: None MEDICAL DECISION MAKING: Patient presented to the emergency room because of increased abdominal pain and nausea. Records reviewed for in-hospital treatment for diverticulitis with abscess. Patient had IV established. She was hydrated. She was given IV Tylenol and Zofran. She initially declined narcotics secondary to not wanting to feel dopey. She had a leukocytosis on CBC. Chemistry panel was un remarkable. Her ECG did show a mild sinus tachycardia with LVH and repolarization. Patient underwent CT imaging and was found to have similar appearance of the diverticulitis and abscess. She was given IV Rocephin and IV Flagyl. She was also given IV potassium and IV Dilaudid. She was feeling b radames on reassessment. Daughter feels that she has had problems with oral metronidazole in the past that were similar to this. She seemed to do well with the IV metronidazole. I discussed further management in the hospital given her issues at home. Patient and family were very much in agreement as she is not doing well. I gave my usual and customary discussion regarding this issue. Consultation was made with Dr. Josesito Lo of the [facility] service. Patient was evaluated in the ER for further management. Triage Nursing notes reviewed and agree them. Vital Signs: reviewed and remarkable for no significant abnormalities Differential diagnosis: Perforated viscus, worsening abscess, appendicitis, PID, infections, UTI, obstruction, mesenteric ischemia, aortic pathology, inflammatory bowel disease, renal colic, PUD, pancreatitis, biliary pathology, hernia, volvulus, constipation, as well as other pathologies. Diagnostics interpreted by me: ECG: Twelve-lead ECG reveals a sinus tachycardia with PVCs at 106 bpm. Left axis deviation and LVH with QRS widening and repolarization. No ST elevation. Cardiac Monitoring: Cardiac monitoring ordered by me: The patient was placed on continuous cardiac monitoring and observed. It revealed a normal sinus rhythm at 94 beats per minute without evidence of dysrhythmia. Imaging studies: CT scan as noted above. I refer you to the EMR for further details. HPI: The patient is a 86 year old female who presents to the Emergency Room with complaints of left lower quadrant abdominal pain. This started to worsen over the last 2 days and is attributed to recent diagnosis of diverticulitis with abscess. Patient was in the hospital a week. She received 4 days of IV antibiotics and was transitioned to oral cefdinir and metronidazole. She was discharged the day before yesterday.. The patient also notes the following associated symptoms, nausea, decreased p.o. intake, loose stool. The patient has found no relieving factors. Current pain is rated as 9/10. pt denies LOC, headache, fevers, chills, diaphoresis, visual changes, neck pain, chest pain, breathing difficulties, vomiting, back pain, melena, hematochezia, urinary symptoms, numbness, weakness, lymphadenopathy, rash, or other complaints. ROS: See above HPI for pertinent positives & negatives. A total of 10 systems reviewed and were otherwise negative. PAST MEDICAL HISTORY:See Below , diverticulitis, CKD PAST SURGICAL HISTORY:See Below, FAMILY HISTORY:See Below SOCIAL HISTORY:See Below, retired HOME MEDICATIONS:See Below ALLERGIES:See Below VITALS:See Below PHYSICAL EXAMINATION: GENERAL: Awake, alert, uncomfortable-appearing, in no distress HENT: Normocephalic, atraumatic. Oropharynx unremarkable. EYES: Normal conjunctiva. Sclera non-icteric. NECK: Inspection normal. Non-tender. Supple. No nuchal rigidity. FROM. No masses. RESPIRATORY: Clear to auscultation. No wheezes. No rales. Normal respiratory effort. CARDIAC: Normal rate. Normal rhythm. No murmurs. No rubs. Extremities warm and well perfused. Pulses equal. No JVD. GI: Soft, non-distended. Left lower quadrant tenderness to palpation. No rebound but mild guarding. No masses. RECTAL: Deferred. MUSCULOSKELETAL: Atraumatic. Chest examination reveals no tenderness. The back is symmetrical on inspection without obvious abnormality. There is no CVA tenderness to palpation. No joint edema. LOWER EXTREMITIES: Calves are equal size bilaterally and non-tender. No edema. No discoloration. NEURO: Normal sensorium. No sensory or motor deficits noted. SKIN: No rash or jaundice noted. Cody Liriano MD Past Med/Surg History Medical History (Updated 12/19/21 @ 21:07 by Cody Liriano MD) Cardiomyopathy Chronic kidney disease, stage 3a Diverticulitis Fibromyalgia HTN (hypertension) Hypokalemia Hypomagnesemia Hyponatremia Small bowel obstruction Valvular heart disease Surgical History H/O exploratory laparotomy SBO in . History of appendectomy History of section x2 History of laminectomy History of laparoscopy to remove fibroid tumor in uterus Family History Other No pertinent family history Denies family history of Myocardial infarction Stroke Social History Smoking Status: Never smoker Second Hand Exposure: No; Hx Alcohol Use: No Hx Substance Use: No Preferred Language: Brazilian Communication Ability: Effective Cement Rubber Required: No Beliefs That Will Affect Care: None marital status: / Current Living Situation: Alone Current Living Situation Comment: Pt lives alone in [facility] How many Children do You have: 1 Feels Safe at Home: Yes Assistive Devices: Cane and Walker Allergies Allergies Allergy/AdvReac Type Severity Reaction Status Date / Time Penicillins Allergy Unknown HIVES Verified 12/19/21 21:02 ciprofloxacin AdvReac Severe "MADE ME Unverified 12/19/21 21:02 DEATHLY ILL" metronidazole AdvReac Severe Weakness Verified 12/19/21 21:02 lisinopril AdvReac Intermediate Weakness Verified 12/19/21 21:02 Home Meds Home Medications Medication Instructions Recorded Confirmed calcium carbonate 600 mg-vitamin 1 tab PO PM 08/04/18 12/19/21 D3 20 mcg (800 unit) chewable tablet (Caltrate 600 plus D) cholecalciferol (vitamin D3) 50 2,000 unit PO QAM 08/04/18 12/19/21 mcg (2,000 unit) tablet (Vitamin D3) felodipine 10 mg tablet,extended 10 mg PO QAM 08/04/18 12/19/21 release 24 hr indapamide 1.25 mg tablet 1.25 mg PO QAM 08/04/18 12/19/21 irbesartan 300 mg tablet 300 mg PO QAM 08/04/18 12/19/21 trazodone 50 mg tablet 50 mg PO HS 08/04/18 12/19/21 acetaminophen 650 mg 650 - 1,300 mg PO Q12H PRN Pain 02/18/21 12/19/21 tablet,extended release lactobacillus combination no.4 3 0 mmu cells PO DAILY 02/18/21 12/19/21 billion cell capsule (Probiotic) Previous Rx's Medication Instructions Recorded labetalol 100 mg tablet 100 mg PO BID #180 tabs 10/20/21 metoprolol tartrate 50 mg tablet 50 mg PO BID #180 tabs 10/20/21 cefdinir 300 mg capsule 300 mg PO BID 12 days #24 caps 12/17/21 metronidazole 500 mg tablet 500 mg PO Q8H 12 days #36 tabs 12/17/21 Results & Data (ED) Vital Signs Vital Signs - 24 hr 12/19/21 20:34 12/19/21 20:41 12/19/21 22:34 Temperature 36.8 C Temperature Source Temporal Artery Scan Pulse Rate 106 H 100 H Pulse Rate [Apical] 101 H Pulse Rhythm Regular Pulse Rhythm [Apical] Pulse Strength Normal Pulse Strength [Apical] Respiratory Rate 19 21 19 Respiratory Effort / Characteristics Non-Labored Spontaneous Respiratory Depth Normal Respiratory Pattern Regular Blood Pressure 163/72 H Blood Pressure [Left Arm] 150/118 H Blood Pressure Mean 102 Blood Pressure Mean [Left Arm] 128 Blood Pressure Position Sitting Blood Pressure Position [Left Arm] Pulse Oximetry 95 98 97 Oxygen Delivery Method Room Air Room Air Room Air Sepsis Recent Fever Within 48 Hours No Sepsis New/Unexplained Change in Mental Status N/A Sepsis Action Taken by Nursing No Action Required 12/20/21 00:00 Temperature Temperature Source Pulse Rate Pulse Rate [Apical] 94 H Pulse Rhythm Pulse Rhythm [Apical] Regular Pulse Strength Pulse Strength [Apical] Normal Respiratory Rate 16 Respiratory Effort / Characteristics Non-Labored Spontaneous Respiratory Depth Normal Respiratory Pattern Blood Pressure Blood Pressure [Left Arm] 152/87 H Blood Pressure Mean Blood Pressure Mean [Left Arm] 108 Blood Pressure Position Blood Pressure Position [Left Arm] Lying Pulse Oximetry 94 Oxygen Delivery Method Room Air Sepsis Recent Fever Within 48 Hours Sepsis New/Unexplained Change in Mental Status Sepsis Action Taken by Nursing Laboratory Data Result diagrams: 12/19/21 20:50 12/19/21 20:50 Lab Results 12/19/21 12/19/21 12/19/21 Range/Units 20:50 20:50 21:00 WBC 13.37 H (4.8-10.8) K/ul RBC 4.05 (3.93-5.22) M/uL Hgb 12.0 (12.0-16.0) g/dl Hct 36.1 (34.1-44.9) % MCV 89.1 (80.0-100.0) fL MCH 29.6 (25.0-34.0) pg MCHC 33.2 (32.0-36.0) g/dL RDW Std Deviation 47.5 H (36.4-46.3) fL RDW Coeff of Mari 14.8 H (11.5-14.5) % Plt Count 282 (130-400) K/uL MPV 10.0 (9.4-12.3) fL Immature Gran % (Auto) 0.4 % Neut % (Auto) 74.5 % Lymph % (Auto) 11.7 % [place] % (Auto) 11.1 % Eos % (Auto) 1.9 % Baso % (Auto) 0.4 % Neut # (Auto) 9.95 H (1.4-6.5) K/uL Lymph # (Auto) 1.57 (1.2-3.4) K/uL [place] # (Auto) 1.49 H (0.24-0.82) K/uL Eos # (Auto) 0.25 (0-0.50) K/uL Baso # (Auto) 0.06 (0-0.2) K/uL Immature Gran # (Auto) 0.05 H (0.00-0.02) K/uL Sodium 139 (136-145) mmol/L Potassium 3.2 L (3.5-5.1) mmol/L Chloride 103 (98-107) mmol/L Carbon Dioxide 25 (21-32) mmol/L Anion Gap 11 (3-11) BUN 18 (6-23) mg/dl Creatinine 0.98 (0.6-1.2) mg/dl Est Cr Clr Drug Dosing 40.7 ml/min Est GFR ( Amer) 60.1 ml/min Est GFR (Non-Af Amer) 51.9 ml/min BUN/Creatinine Ratio 18.4 (10-20) Glucose 103 H (70-99(Fasting)) mg/dl Lactate 0.6 (0.4-2.0) mmol/L Calcium 8.8 (8.5-10.1) mg/dl Total Bilirubin 0.6 (0.2-1.0) mg/dl AST 21 (13-39) U/L ALT 15 (7-52) U/L Alkaline Phosphatase 74 (34-104) U/L Troponin I High Sens 16.6 H (0-14) pg/ml Total Protein 6.1 (6.0-8.3) gm/dl Albumin 3.6 (3.4-5.0) gm/dl Globulin 2.5 (2.5-4.0) gm/dl Albumin/Globulin Ratio 1.4 (0.9-2) Lipase 14 (11-82) U/L SARS-CoV-2, RNA, NAAT (NEGATIVE) 12/20/21 Range/Units 00:00 WBC (4.8-10.8) K/ul RBC (3.93-5.22) M/uL Hgb (12.0-16.0) g/dl Hct (34.1-44.9) % MCV (80.0-100.0) fL MCH (25.0-34.0) pg MCHC (32.0-36.0) g/dL RDW Std Deviation (36.4-46.3) fL RDW Coeff of Mari (11.5-14.5) % Plt Count (130-400) K/uL MPV (9.4-12.3) fL Immature Gran % (Auto) % Neut % (Auto) % Lymph % (Auto) % [place] % (Auto) % Eos % (Auto) % Baso % (Auto) % Neut # (Auto) (1.4-6.5) K/uL Lymph # (Auto) (1.2-3.4) K/uL [place] # (Auto) (0.24-0.82) K/uL Eos # (Auto) (0-0.50) K/uL Baso # (Auto) (0-0.2) K/uL Immature Gran # (Auto) (0.00-0.02) K/uL Sodium (136-145) mmol/L Potassium (3.5-5.1) mmol/L Chloride (98-107) mmol/L Carbon Dioxide (21-32) mmol/L Anion Gap (3-11) BUN (6-23) mg/dl Creatinine (0.6-1.2) mg/dl Est Cr Clr Drug Dosing ml/min Est GFR ( Amer) ml/min Est GFR (Non-Af Amer) ml/min BUN/Creatinine Ratio (10-20) Glucose (70-99(Fasting)) mg/dl Lactate (0.4-2.0) mmol/L Calcium (8.5-10.1) mg/dl Total Bilirubin (0.2-1.0) mg/dl AST (13-39) U/L ALT (7-52) U/L Alkaline Phosphatase (34-104) U/L Troponin I High Sens (0-14) pg/ml Total Protein (6.0-8.3) gm/dl Albumin (3.4-5.0) gm/dl Globulin (2.5-4.0) gm/dl Albumin/Globulin Ratio (0.9-2) Lipase (11-82) U/L SARS-CoV-2, RNA, NAAT NEGATIVE (NEGATIVE) Administered Medications Hydromorphone HCl (Hydromorphone Inj 0.5 Mg/0.5 Ml Syr) 0.25 mg IV Q15M PRN PRN Reason: Pain Stop: 01/02/22 22:25 Last Admin: 12/20/21 00:23 Dose: 0.25 mg Documented By: Admin: 12/19/21 22:40 Dose: 0.25 mg Documented By: ML Sodium Chloride (Nss 1000ml) 1,000 mls @ 125 mls/hr IV .Q8H STA Stop: 12/20/21 04:40 Last Admin: 12/19/21 20:59 Dose: 125 mls/hr Documented By: ML Discontinued Medications Acetaminophen (Acetaminophen 1000 Mg/100 Ml Iv) 1,000 mg IV NOW STA Stop: 12/19/21 21:08 Last Admin: 12/19/21 21:14 Dose: 1,000 mg Documented By: HNB Potassium Chloride (K Ceasar / Wtr) 10 meq in 100 mls @ 100 mls/hr IV ONE ONE; Protocol Stop: 12/19/21 23:25 Last Infusion: 12/20/21 00:56 Dose: 0 mls/hr Documented By: Admin: 12/19/21 23:30 Dose: 100 mls/hr Documented By: SS Ceftriaxone Sodium (Rocephin) 2,000 mg in 70 mls @ 140 mls/hr IV NOW STA Stop: 12/20/21 00:16 Last Admin: 12/20/21 00:58 Dose: 140 mls/hr Documented By: SS Ondansetron HCl (Ondansetron Inj 2 Mg/Ml 2 Ml Vial) 4 mg IV NOW STA Stop: 12/19/21 21:08 Last Admin: 12/19/21 21:14 Dose: 4 mg Documented By: HNB Discharge Plan Visit Data Chief Complaint: Abdominal Pain Stated Complaint: ABDOM PAIN, DISCHARGED MONDAY ED Provider: oCdy Liriano Discharge Problem: Abdominal pain, LLQ (left lower quadrant), Diverticulitis, Nausea Forms Stand Alone Forms: [employer] [facility] Prescriptions Prescriptions: No Action metoprolol tartrate 50 mg tablet 50 mg PO BID Qty: 180 3RF labetalol 100 mg tablet 100 mg PO BID Qty: 180 3RF Rx Instructions: TAKEN IN ADDITION TO REDUCED DOSE METOPROLOL trazodone 50 mg tablet 50 mg PO HS indapamide 1.25 mg tablet 1.25 mg PO QAM felodipine 10 mg tablet extended release 24 hr 10 mg PO QAM irbesartan 300 mg Tablet 300 mg PO QAM cholecalciferol (vitamin D3) [Vitamin D3] 2,000 unit Tablet 2,000 unit PO QAM Caltrate 600 plus D 600 mg (1,500 mg)-800 unit Tablet,Chewable 1 tab PO PM acetaminophen 650 mg Tablet Extended Release 650 - 1,300 mg PO Q12H PRN (Reason: Pain) Probiotic 3 billion cell Capsule 0 mmu cells PO DAILY cefdinir 300 mg Capsule 300 mg PO BID 12 Days Qty: 24 0RF metronidazole 500 mg Tablet 500 mg PO Q8H 12 Days Qty: 36 0RF Referrals Referrals: Tracie Rush DO [Primary Care Provider] -
[2021-12-19 21:32] LABS: Troponin I High Sensitivity 16.6 pg/ml (0-14)
[2021-12-19 21:56] LABS: Albumin Globulin Ratio 1.4 (0.9-2); Albumin Level 3.6 gm/dl (3.4-5.0); BUN Creatinine Ratio 18.4 (10-20); Bilirubin,Total 0.6 mg/dl (0.2-1.0); Calcium 8.8 mg/dl (8.5-10.1); Creatinine Clr Calc Pharmacy 40.7 ml/min; Est GFR (African American) 60.1 ml/min; Est GFR (Non-African American) 51.9 ml/min; Globulin 2.5 gm/dl (2.5-4.0); Potassium 3.2 mmol/L (3.5-5.1); Total Protein 6.1 gm/dl (6.0-8.3)
[2021-12-19] MEDS ORDERED: POTASSIUM CHLORIDE / WTR 10 MEQ/100 ML PLCT IV ONE (22:26)
[2021-12-19] MEDS: HYDROmorphone INJ 0.5 MG/0.5 ML SYR IV PRN (22:40)
[2021-12-19] MEDS ORDERED: metroNIDAZOLE 500 MG/100 ML BAG IV STA (23:47)
[2021-12-19] MEDS ORDERED: cefTRIAXone SODIUM 2,000 MG/70 ML BAG IV STA (23:47)
[2021-12-20] MEDS: HYDROmorphone INJ 0.5 MG/0.5 ML SYR IV PRN (00:23)
--- NOTE | 2021-12-20 00:37 | History & Physical Report ---
Date of Service December 20, 2021 Assessment & Plan (1) Diverticulitis: Plan: 86yo female with a history of multiple episodes of diverticulitis, CKD3, HTN, mitral regurgitation, fibromyalgia, and knee OA presents with a two-day history of worsening abdominal pain, nausea, and poor appetite secondary to outpatient treatment failure for acute complicated diverticulitis with contained perforation. Sepsis secondary to acute complicated sigmoid diverticulitis with contained perforation Recent hospital stay from 12/14 to 12/17 for acute complicated diverticulitis with contained perforation; initially, clinically improved while on intravenous ceftriaxone+metronidazole; however, symptoms worsened after patient was transitioned to oral cefdinir+metronidazole Vitals on arrival notable for tachycardia (109) and hypertension (160s/70s); patient afebrile, no tachypnea, oxygen saturation adequate on room air Admission labs notable for mild leukocytosis (13.4) and mild hypokalemia (3.2); no other electrolyte derangements, LFTs not elevated, lipase not elevated CT abdomen/pelvis showing acute sigmoid diverticulitis with contained perforation, 3.4 x 2.6cm collection of fluid and gas ([facility] read); imaging relatively unchanged from prior CT (12/14) Admit to med/surg telemetry Lactate level ordered, blood cultures pending Will re-consult general surgery for consideration of abscess drainage +/- further surgical intervention NPO/bowel rest Continue ceftriaxone IV, metronidazole IV (note: patient has antibiotic sensitivities/allergies listed on her chart - however, she did tolerate both these antibiotics IV during prior admission) NSS discontinued, started D5 1/2NSS + KCl 20mEq @ 100mL/hr given NPO If an extended duration of bowel rest is anticipated, would recommend PICC line placement for parenteral nutrition Pain control: APAP IV 1000mg q8h scheduled, dilaudid IV 0.5mg q1h prn severe pain Will hold off on ordering prn antiemetics given prolonged QTc, and because patient is without nausea at this time Trend daily CBC, electrolytes, renal function Prolonged QTc EKG on admission notable for QTc of 515 as well as sinus tachycardia, LVH, and widened QRS Continuous cardiac monitoring Caution with further QTc-prolonging meds Replete potassium Repeat EKG in AM Hypokalemia Potassium on admission 3.2 Received KCl 10mEq IV x1 dose in ED IVF with KCl 20mEq @ 100mL/hr as noted above Magnesium level ordered Trend daily Diarrhea Suspected secondary to oral antibiotic initiation on 12/17 given temporal relation Stool culture ordered Rest of management as above Elevated troponin On admission, hsTroponin minimally elevated to 16.6, repeat value pending EKG without evidence of acute ischemia, patient without CP Trend q6h until peaks and falls Insomnia: home trazodone HTN: home regimen Systolic dysfunction, valvular disease: home regimen FEN: NPO, NSS@125mL/hr Code status: DNR/DNI DVT ppx: SCDs Consults: general surgery Dispo: med/surg telemetry Surrogate decision maker in case of an emergency: Marii Landon ([phone]) (2) Elevated troponin: (3) HTN (hypertension): (4) Hypokalemia: (5) Moderate to severe mitral regurgitation: (6) Nausea: (7) Osteoarthritis of knees, bilateral: (8) Abdominal pain: (9) Chronic kidney disease, stage 3a: History of Present Illness Primary Care Provider: Tracie Rush DO 86yo female with a history of multiple episodes of diverticulitis, CKD3, HTN, mitral regurgitation, fibromyalgia, and knee OA presents with a two-day history of worsening abdominal pain since being discharged two days ago. Patient's recent admission earlier this week (from 12/14-12/17) was for diverticulitis with perforation. Patient originally presented to the ED on 11/22 (about a month ago) with lower abdominal pain which at that time was diagnosed as gastroenteritis; patient was not admitted at that time, and was discharged from the ED with dicyclomine. Patient's abdominal pain continued to worsen, which prompted her to return to the hospital on 12/14. Imaging at that time showed acute diverticulitis of the distal descending colon, proximal sigmoid colon, and mid-sigmoid colon with associated focal perforation/abscess adjacent to the mid-sigmoid colon measuring 3.1 x 2.8cm. Patient received a dose of cefoxitin IV before being transitioned to ceftriaxone IV and flagyl IV. General surgery was consulted and recommended medical management. Patient's symptoms improved with IV antibiotics, and on hospital day four, her IV antibiotic regimen was converted to oral cefdinir and oral metronidazole. Patient was discharged the same day, and she was to continue oral cefdinir/metronidazole for twelve days. However, upon returning home, patient's abdominal pain returned and progressively worsened, prompting her to return to the ED today. Patient also endorses diarrhea that began after starting oral antibiotics. Also endorses nausea without vomiting. Patient denies fever, CP, SOB, palpitations, or other symptoms. Of note, patient reports a history of five prior GI surgeries for diverticulitis. Surrogate decision maker in case of an emergency: Marii Landon ([phone]) Allergies Allergy/AdvReac Type Severity Reaction Status Date / Time Penicillins Allergy Unknown HIVES Verified 12/19/21 21:02 ciprofloxacin AdvReac Severe "MADE ME Unverified 12/19/21 21:02 DEATHLY ILL" metronidazole AdvReac Severe Weakness Verified 12/19/21 21:02 lisinopril AdvReac Intermediate Weakness Verified 12/19/21 21:02 Home Medications Medication Instructions Recorded Confirmed Type calcium carbonate 600 mg-vitamin 1 tab PO PM 08/04/18 12/19/21 History D3 20 mcg (800 unit) chewable tablet (Caltrate 600 plus D) cholecalciferol (vitamin D3) 50 2,000 unit PO QAM 08/04/18 12/19/21 History mcg (2,000 unit) tablet (Vitamin D3) felodipine 10 mg tablet,extended 10 mg PO QAM 08/04/18 12/19/21 History release 24 hr indapamide 1.25 mg tablet 1.25 mg PO QAM 08/04/18 12/19/21 History irbesartan 300 mg tablet 300 mg PO QAM 08/04/18 12/19/21 History trazodone 50 mg tablet 50 mg PO HS 08/04/18 12/19/21 History acetaminophen 650 mg 650 - 1,300 mg PO Q12H PRN Pain 02/18/21 12/19/21 History tablet,extended release lactobacillus combination no.4 3 0 mmu cells PO DAILY 02/18/21 12/19/21 History billion cell capsule (Probiotic) labetalol 100 mg tablet 100 mg PO BID #180 tabs 10/20/21 12/19/21 Rx metoprolol tartrate 50 mg tablet 50 mg PO BID #180 tabs 10/20/21 12/19/21 Rx cefdinir 300 mg capsule 300 mg PO BID 12 days #24 caps 12/17/21 12/19/21 Rx metronidazole 500 mg tablet 500 mg PO Q8H 12 days #36 tabs 12/17/21 12/19/21 Rx Past Med/Surg History Medical History Cardiomyopathy Chronic kidney disease, stage 3a Diverticulitis Fibromyalgia HTN (hypertension) Hypokalemia Hypomagnesemia Hyponatremia Small bowel obstruction Valvular heart disease Surgical History H/O exploratory laparotomy SBO in . 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: No Beliefs That Will Affect Care: None marital status: / Current Living Situation: Alone Current Living Situation Comment: Pt lives alone in [facility] How many Children do You have: 1 Other Information That Helps Us Care for You: No Feels Safe at Home: Yes Safety Concerns: Feels Safe At This Time Assistive Devices: Glasses, Hearing Aid - Bilateral and Walker Physical Exam Physical Exam: Constitutional: tired-appearing, no acute distress HEENT: NCAT, no conjunctival injection, no scleral icterus CV: heart sounds distant, extremities well-perfused, no LE edema Resp: CTABL, no wheezes/rales/rhonchi appreciated, no increased work of breathing GI: soft, severe tenderness of the LLQ, moderate tenderness of RUQ, LUQ, and RLQ, no rebound or guarding, BS hypoactive MSK: no gross deformities appreciated Neuro: alert, oriented, no focal neurologic deficit appreciated Results & Data Results & Data ([facility]) Vital Signs (Past 12 Hours) Vital Signs Temp Pulse Pulse Resp BP BP Pulse Ox 12/20/21 00:00 94 H 16 152/87 H 94 12/19/21 22:34 101 H 19 150/118 H 97 07/24/22 20:41 100 H 21 98 12/19/21 20:34 36.8 C 106 H 19 163/72 H 95 O2 Del Method 12/20/21 00:00 Room Air 12/19/21 22:34 Room Air 12/19/21 20:41 Room Air 12/19/21 20:34 Room Air Supervising Physician Co-Signing Physician Notes Attending addendum: I have physically seen this patient, have supervised the medical residents activities, and agree with the H&P unless as otherwise noted. Assessment and Plan: Diverticulitis with abscess- Patient recently admitted from 12/14-12/17/2021 for same, on IV antibiotics at that time. Was discharged home on oral antibiotics Patient with recurrent symptoms NPO Ceftriaxone 2 g IV daily Metronidazole 5 mg IV every 8 hours D5 half-normal saline with KCl 20 mEq at 100 mils per hour Consult general surgery Follow serial CBC with differential, chemistry profile and magnesium level Hypokalemia- Potassium 3.2 upon admission Check a magnesium level Replace with IV as noted, recheck laboratories every morning Remaining orders and notations as noted Resident Activity Tracking Resident Involvement: Resident Care Provided and [employer] Coverage Note Care Provided: Adult Hospital Medicine (1) Osteoarthritis of knees, bilateral Osteoarthritis type: primary Qualified Code(s): M17.0 - Bilateral primary osteoarthritis of knee (2) Abdominal pain Abdominal location: left lower quadrant Qualified Code(s): R10.32 - Left lower quadrant pain (3) HTN (hypertension) Hypertension type: essential hypertension Qualified Code(s): I10 - Essential (primary) hypertension
[2021-12-20] MEDS ORDERED: ACETAMINOPHEN 1000 MG/100 ML IV IV SCH (01:00)
--- NOTE | 2021-12-20 01:17 | Surgery Consultation ---
Date of Consultation December 20, 2021 Assessment & Plan (1) Diverticulitis: I discussed with the treating emergency room physician and the patient is being admitted on the hospitalist service. We recommend proceeding as follows: Provide analgesics Provide antiemetics Implement n.p.o. status Provide IV fluid for hydration Initiate intravenous antibiotics. The patient is currently receiving Rocephin and Flagyl. We will continue to follow the patient's clinical course. If the patient fails to show significant clinical improvement with the above-noted measures repeat imaging can be considered. I discussed with the patient due to her multiple abdominal surgeries and the acute nature of her diverticulitis would be preferable to avoid surgical intervention at this time as this would likely require a colostomy. I did discuss with the patient that if any surgery should be performed due to her diverticulitis would be preferable to perform this once she is adequately recovered from this acute episode. Additional recommendations be forthcoming based on her clinical course as it unfolds Additional plan as directed by the primary service Supervising Physician Co-Signing Physician Notes As per Edmundo Mancera physician reference library assistant Since the acute episode that happened 5 days ago and the patient has not had any flatus or bowel movement Moderate tenderness left lower quadrant mostly around anterior superior iliac crest area and laterally No surgery indicated at this time we will discussed with Dr. Morales who is seen last patient last visit whether he would like to have his service follow the patient otherwise we will be glad to follow her History of Present Illness Reason for Consultation: Diverticulitis History of Present Illness This is an 86-year-old female who presented to [facility] secondary to abdominal pain. Patient was recently mated to [facility] secondary to acute sigmoid diverticulitis from 12/14/2021 through 12/17/2021. At that time the patient was noted to have acute sigmoid diverticulitis with a contained perforation and abscess measuring approximately 3 mm. Patient was seen by [facility] general surgery and no operative intervention was employed. Patient was initially treated with intravenous antibiotics and discharged home on oral cefdinir and Flagyl and the plan was for patient to see Dr. Mingo Morales as an outpatient. It is nowhere the mention that the patient reports that she has taken oral Flagyl in the past and has not done well with this medication. Patient says that she was initially doing well at home but approximately 1 to 2 days after being discharged home she developed some loose bowel movements and worsening abdominal pain in the lower abdomen greatest in the left lower quadrant. She notes a poor appetite and has not really eaten much since being home. She denies any fevers, shakes, or chills. She denies any nausea or vomiting. Because of her symptoms she represented to the emergency department. The patient also adds that she has had multiple attacks of diverticulitis in the past. She states she moved to [place] from [place] approximate 7 years ago and has had numerous attacks since then and was previously following with Dr. De Andre of [facility] gastroenterology. Patient does report a history of multiple abdominal surgeries most recently in [address] Crowell of [facility] surgery. This surgery was performed secondary to a small bowel obstruction and the patient required lysis of adhesions. Today in the emergency department the patient had labs and imaging which I independently reviewed. CT scan of the abdomen and pelvis showed acute sigmoid diverticulitis. There is a contained perforation with fluid and gas measuring approximate 3.4 x 2.4 cm. These findings were unchanged when compared to her most recent CT scan on 12/14/2021. Labs include a CBC her white blood cell count was 13.3. Hemoglobin, hematocrit, and platelet count were noted to be normal. Chemistry profile showed sodium was 139 with a potassium of 3.2. Her BUN and creatinine were noted to be within the normal range. She did have a slight elevation of her troponin at 16.6. A COVID test was noted be negative. At the time of my interview she was resting comfortably in bed in no distress. Allergies Allergy/AdvReac Type Severity Reaction Status Date / Time Penicillins Allergy Unknown HIVES Verified 12/19/21 21:02 ciprofloxacin AdvReac Severe "MADE ME Unverified 12/19/21 21:02 DEATHLY ILL" metronidazole AdvReac Severe Weakness Verified 12/19/21 21:02 lisinopril AdvReac Intermediate Weakness Verified 12/19/21 21:02 Home Medications Medication Instructions Recorded Confirmed Type calcium carbonate 600 mg-vitamin 1 tab PO PM 08/04/18 12/19/21 History D3 20 mcg (800 unit) chewable tablet (Caltrate 600 plus D) cholecalciferol (vitamin D3) 50 2,000 unit PO QAM 08/04/18 12/19/21 History mcg (2,000 unit) tablet (Vitamin D3) felodipine 10 mg tablet,extended 10 mg PO QAM 08/04/18 12/19/21 History release 24 hr indapamide 1.25 mg tablet 1.25 mg PO QAM 08/04/18 12/19/21 History irbesartan 300 mg tablet 300 mg PO QAM 08/04/18 12/19/21 History trazodone 50 mg tablet 50 mg PO HS 08/04/18 12/19/21 History acetaminophen 650 mg 650 - 1,300 mg PO Q12H PRN Pain 02/18/21 12/19/21 History tablet,extended release lactobacillus combination no.4 3 0 mmu cells PO DAILY 02/18/21 12/19/21 History billion cell capsule (Probiotic) labetalol 100 mg tablet 100 mg PO BID #180 tabs 10/20/21 12/19/21 Rx metoprolol tartrate 50 mg tablet 50 mg PO BID #180 tabs 10/20/21 12/19/21 Rx cefdinir 300 mg capsule 300 mg PO BID 12 days #24 caps 12/17/21 12/19/21 Rx metronidazole 500 mg tablet 500 mg PO Q8H 12 days #36 tabs 12/17/21 12/19/21 Rx Patient History Medical History Cardiomyopathy Chronic kidney disease, stage 3a Diverticulitis Fibromyalgia HTN (hypertension) Hypokalemia Hypomagnesemia Hyponatremia Small bowel obstruction Valvular heart disease Surgical History H/O exploratory laparotomy SBO in . History of appendectomy History of section x2 History of laminectomy History of laparoscopy to remove fibroid tumor in uterus Family History Other No pertinent family history Denies family history of Myocardial infarction Stroke Social History Smoking Status: Never smoker Second Hand Exposure: No; Hx Alcohol Use: No Hx Substance Use: No Preferred Language: Armenian Communication Ability: Impaired Bark Skinner Required: No Beliefs That Will Affect Care: None marital status: / Current Living Situation: Alone Current Living Situation Comment: Pt lives alone in [facility] How many Children do You have: 1 Other Information That Helps Us Care for You: No Feels Safe at Home: Yes Safety Concerns: Feels Safe At This Time Assistive Devices: Glasses, Hearing Aid - Bilateral and Walker Review of Systems Constitutional: no fever and no chills Eyes: + corrective lenses Ear, Nose, Mouth, Throat: no ear pain Respiratory: no cough and no dyspnea Cardiovascular: no chest pain Gastrointestinal: as per Subjective / HPI Genitourinary: no dysuria Musculoskeletal: no back pain Integumentary: no rash Neurologic: no localized weakness Physical Exam Constitutional: WD/WN, vitals as above Eyes: Wears glasses ENMT: Ears: no hearing impairment and no external ear abnormality Mouth: no oropharynx abnormality Neck: trachea midline Respiratory: normal respiratory effort, lungs clear to auscultation Cardiovascular: Rate/Rhythm: regular rate and regular rhythm Gastrointestinal (Abdomen): Abdomen is soft but mild distention is noted. There is no rebound tenderness or guarding the patient did have significant tenderness to palpation which is greatest in the left lower quadrant. Patient also had some abdominal tenderness to the right of the umbilicus to a lesser degree Musculoskeletal: No calf tenderness Skin: no rashes Neurologic: moves all extremities Psychiatric: A+Ox3, euthymic affect Results & Data ([facility]) Vital Signs (Past 12 Hours) Vital Signs Temp Pulse Pulse Resp BP BP Pulse Ox 12/20/21 00:00 94 H 16 152/87 H 94 12/19/21 22:34 101 H 19 150/118 H 97 12/19/21 20:41 100 H 21 98 12/19/21 20:34 36.8 C 106 H 19 163/72 H 95 O2 Del Method 12/20/21 00:00 Room Air 12/19/21 22:34 Room Air 12/19/21 20:41 Room Air 12/19/21 20:34 Room Air PG Care Time/CCT Total # of Minutes Spent Total Time Spent with Patient: Total time spent is greater than 50% in coordination of care (as documented) at patient's floor/unit and/or counseling patient: Coding Level of Care Code 46973 Inpt Consult Level 5 Diagnoses Diverticulitis K57.92
[2021-12-20] MEDS ORDERED: HYDROmorphone INJ 0.5 MG/0.5 ML SYR IV PRN (02:21)
[2021-12-20 02:25] LABS: Appearance Urine Clear (Clear); Bacteria Urine Automated Negative (Negative); Bilirubin Urine Negative (Negative); Blood Urine Negative (Negative); Cast Urine Automated 0 /lpf (0-5); Color Urine Yellow; Glucose Urine UA Negative (Negative); Ketones Urine Negative (Negative); Leukocyte Esterase Urine Negative (Negative); Nitrite Urine Negative (Negative); Protein Urine Trace (Negative); RBC Urine Automated 0-4 /hpf (0-4); Specific Gravity Urine 1.012 (1.000-1.030); Urobilinogen Urine Negative (Negative)
[2021-12-20] MEDS: ACETAMINOPHEN 1,000 MG/100 ML VIAL IV SCH ×3 (04:32→20:45)
[2021-12-20] MEDS: D5W AND 1/2NSS + 20MEQ KCL 20 MEQ/1,000 ML BAG IV SCH ×2 (05:08→17:03)
--- NOTE | 2021-12-20 06:49 | Billing Data ---
Date of Service December 20, 2021 Coding Level of Care Code 93380 Initial Inpt Care Lvl 3
--- NOTE | 2021-12-20 07:02 | Hospitalist Progress Note ---
Date of Service December 20, 2021 Assessment & Plan (1) Diverticulitis: Plan: 86yo female with a history of multiple episodes of diverticulitis, CKD3, HTN, mitral regurgitation, fibromyalgia, and knee OA presents with a two-day history of worsening abdominal pain, nausea, and poor appetite secondary to outpatient treatment failure for acute complicated diverticulitis with contained perforation. Sepsis secondary to acute complicated sigmoid diverticulitis with contained perforation Recent hospital stay from 12/14 to 12/17 for acute complicated diverticulitis with contained perforation; initially, clinically improved while on intravenous ceftriaxone+metronidazole; however, symptoms worsened after patient returned home on oral cefdinir+metronidazole. Note this is expected as part of improving clinical course as patient resumes bowel movements. Vitals on arrival notable for tachycardia (109) and hypertension (160s/70s); patient afebrile, no tachypnea, oxygen saturation adequate on room air Admission labs notable for mild leukocytosis (13.4) and mild hypokalemia (3.2); no other electrolyte derangements, LFTs not elevated, lipase not elevated CT abdomen/pelvis showing improving sigmoid diverticulitis with contained perforation, 3.4 x 2.6cm collection of fluid and gas; imaging relatively unchanged from prior CT (12/14) Admit to med/ telemetry consult general surgery: continue medical management Continue ceftriaxone IV, metronidazole IV Given IVF, dc'd and started clear liquid diet, advance as tolerated Pain control: APAP IV 1000mg q8h scheduled, dilaudid IV 0.5mg q1h prn severe pain Lactate level ordered, blood cultures pending Trend daily CBC, electrolytes, renal function Prolonged QTc EKG on admission notable for QTc of 515 as well as sinus tachycardia, LVH, and widened QRS Continuous cardiac monitoring Caution with further QTc-prolonging meds Repleted potassium Hypokalemia Potassium on admission 3.2 Received KCl 10mEq IV x1 dose in ED IVF with KCl 20mEq @ 100mL/hr as noted above Magnesium 1.8 Trend daily Diarrhea Suspected secondary to oral antibiotic initiation on 12/17 given temporal relation Stool culture ordered Rest of management as above Elevated troponin On admission, hsTroponin minimally elevated to 16.6, repeat value pending EKG without evidence of acute ischemia, patient without CP Trend q6h until peaks and falls Insomnia: home trazodone HTN: home regimen Systolic dysfunction, valvular disease: home regimen FEN: clear liquid diet Code status: DNR/DNI DVT ppx: SCDs Consults: general surgery Dispo: med/surg telemetry Surrogate decision maker in case of an emergency: Marii Cabreralivan ([phone]) (2) Elevated troponin: (3) HTN (hypertension): (4) Hypokalemia: (5) Moderate to severe mitral regurgitation: (6) Nausea: (7) Osteoarthritis of knees, bilateral: (8) Abdominal pain: (9) Chronic kidney disease, stage 3a: Admission and Anticipated Discharge Date Admission Date: December 20, 2021 Supervising Physician Co-Signing Physician Notes I personally examined the patient and verified all bravo points of history and exam, discussed case, and agree with decision making with Dr Lugo. Pain feeling better now. Very anxious about the pain she had yesterday. Noted that pain started whenever she had diarrhea. Then it persisted and was intense throughout the day. Seems to have been a fairly diffuse pain. Diarrhea probably around 8 or so episodesnoting dark and at times green and watery. Because of the diarrhea and the pain being worse, she presented to the ER for further evaluation. Today she is actually not having much pain, is very anxious about the situation "I have lost hope" no nausea. She also expresses skepticism that the Flagyl may have caused her symptoms. Vitals noted, in general she is awake and alert anxious but no physical distress. HEENT normocephalic atraumatic mucous membranes moist. Breathing unlabored no accessory muscle use good effort. Abdomen is soft mildly distended diffuse tenderness interestingly more epigastric and right-sided than left lower quadrantshe really to my exam today has minimal to no left lower quadrant tenderness, compared to when I last examined her on Monday. No guarding/rebound/rigidity. CT scan and labs noted Abdominal pain -I believe that her abdominal pain is really largely due to improvement/increase in peristalsis and bowel function as the inflammation from her diverticulitis/abscess are lessening. Whenever we were discussing the situation with her at day of discharge, general surgery had noted in her question about her bowels that they anticipated when her bowels started to move again that it almost certainly would start as diarrhea. Her story and exam seem more consistent with pain from peristalsis squeezing on the inflamed area, even as the inflamed area is improving, far more than any worsening. Really the only objective sign of any worsening is the very nonspecifically elevated white count at 13. Her exam is better, and her CT shows a stable sized abscess and better diverticular inflammation. -I discussed with the patient that I really do not think that she is suffering from any kind of a treatment failureIV/p.o./otherwise, but really that she is having significant symptoms that would require our care to help her manage. Given her anxiety about the situation ("I have lost hope"), as well as her longstanding reticence for whether or not p.o. antibiotics are causing her harm, I discussed with her frankly that I harbor concerns that this anxiety, combined with her propensity towards diverticulitis, could lead to unnecessarily repeated and/or prolonged hospital stays that could then subsequently lead to deconditioning and real lasting illness. -To be clear, I do feel that she is symptomatic enough to warrant our caresymptom control, supportive care. However, I do not believe that she represents a treatment failure. -Appreciate surgical input. Diverticulitis with abscess -Ongoing antibiotic management. For now IV until GI symptoms are enough to tolerate p.o. again, does require prolonged course of antibiotics. CT generally stable as far as the abscess, improvement of the diverticulitis, equivocal sinus tract noted. Surgery does not feel that any surgical intervention would be required at this time. Otherwise as above, given that she is not imminently facing any surgical proceduresLovenox DVT prophylaxis. Given my concern for deconditioningPT/OT eval and treat. Subjective Patient seen at bedside, states after she went home last week she developed abdominal pain and diarrhea together, states 'I felt awful', attributes her discomfort to oral flagyl and is afraid to take it again. Patient understands diarrhea is expected as part of her clinical recovery course but still states she felt awful and wonders if something has gotten worse. Patient reassured that on imaging her diverticulitis is improving no change in her abcess, she is still anxious about her abdominal pain and diarrhea, states she would like to be on IV antibiotics for longer, states her daughter was worried enough to bring her back to the hospital when she did not want to return. Review of Systems Review of Systems: Positive abd pain Negative fever chills Negative headache dizziness Negative chest pain palpitations SOB Negative nausea vomitting diarrhea constipation Negative numbness tingling rash swelling Physical Exam Constitutional: WD/WN, vitals as above Eyes: PERRL, conjunctivae normal, anicteric sclerae ENMT: external ear and nose normal, oropharynx normal Neck: trachea midline, no thyromegaly Respiratory: normal respiratory effort, lungs clear to auscultation Cardiovascular: RRR, no murmur, no edema Chest (Breasts): Chest: normal inspection of chest Gastrointestinal (Abdomen): Inspection/Auscultation: abdomen normal to inspection Percussion/Palpation: + abdomen tender (mild diffuse) and abdomen soft Skin: no rashes, warm and dry Results & Data Results & Data ([facility]) Vital Signs (Past 12 Hours) Vital Signs Temp Pulse Pulse Resp BP BP Pulse Ox 12/20/21 06:00 82 16 145/80 H 93 12/20/21 05:00 91 H 14 137/77 91 12/20/21 04:47 97 H 18 93 12/20/21 04:00 81 16 152/81 H 91 12/20/21 02:16 90 20 152/93 H 96 12/20/21 00:00 94 H 16 152/87 H 94 12/19/21 22:34 101 H 19 150/118 H 97 12/19/21 20:41 100 H 21 98 12/19/21 20:34 36.8 C 106 H 19 163/72 H 95 O2 Del Method 12/20/21 06:00 Room Air 12/20/21 05:00 Room Air 12/20/21 04:47 Room Air 12/20/21 04:00 Room Air 12/20/21 02:16 Room Air 12/20/21 00:00 Room Air 12/19/21 22:34 Room Air 12/19/21 20:41 Room Air 12/19/21 20:34 Room Air Diagnostic Findings Laboratory Results WBC 13.37 K/ul (4.8-10.8) H 12/19/21 20:50 RBC 4.05 M/uL (3.93-5.22) 12/19/21 20:50 Hgb 12.0 g/dl (12.0-16.0) 12/19/21 20:50 Hct 36.1 % (34.1-44.9) 12/19/21 20:50 MCV 89.1 fL (80.0-100.0) 12/19/21 20:50 MCH 29.6 pg (25.0-34.0) 12/19/21 20:50 MCHC 33.2 g/dL (32.0-36.0) 12/19/21 20:50 RDW Std Deviation 47.5 fL (36.4-46.3) H 12/19/21 20:50 RDW Coeff of Mari 14.8 % (11.5-14.5) H 12/19/21 20:50 Plt Count 282 K/uL (130-400) 12/19/21 20:50 MPV 10.0 fL (9.4-12.3) 12/19/21 20:50 Immature Gran % (Auto) 0.4 % 12/19/21 20:50 Neut % (Auto) 74.5 % 12/19/21 20:50 Lymph % (Auto) 11.7 % 12/19/21 20:50 Terrell % (Auto) 11.1 % 12/19/21 20:50 Eos % (Auto) 1.9 % 12/19/21 20:50 Baso % (Auto) 0.4 % 12/19/21 20:50 Neut # (Auto) 9.95 K/uL (1.4-6.5) H 12/19/21 20:50 Lymph # (Auto) 1.57 K/uL (1.2-3.4) 12/19/21 20:50 Terrell # (Auto) 1.49 K/uL (0.24-0.82) H 12/19/21 20:50 Eos # (Auto) 0.25 K/uL (0-0.50) 12/19/21 20:50 Baso # (Auto) 0.06 K/uL (0-0.2) 12/19/21 20:50 Immature Gran # (Auto) 0.05 K/uL (0.00-0.02) H 12/19/21 20:50 Sodium 139 mmol/L (136-145) 12/19/21 20:50 Potassium 3.2 mmol/L (3.5-5.1) L 12/19/21 20:50 Chloride 103 mmol/L (98-107) 12/19/21 20:50 Carbon Dioxide 25 mmol/L (21-32) 12/19/21 20:50 Anion Gap 11 (3-11) 12/19/21 20:50 BUN 18 mg/dl (6-23) 12/19/21 20:50 Creatinine 0.98 mg/dl (0.6-1.2) 12/19/21 20:50 Est Cr Clr Drug Dosing 40.7 ml/min 12/19/21 20:50 Est GFR ( Amer) 60.1 ml/min 12/19/21 20:50 Est GFR (Non-Af Amer) 51.9 ml/min 12/19/21 20:50 BUN/Creatinine Ratio 18.4 (10-20) 12/19/21 20:50 Glucose 103 mg/dl (70-99(Fasting)) H 12/19/21 20:50 Lactate 1.0 mmol/L (0.4-2.0) 12/20/21 02:13 Calcium 8.8 mg/dl (8.5-10.1) 12/19/21 20:50 Magnesium 1.8 mg/dl (1.7-2.4) 12/20/21 02:13 Total Bilirubin 0.6 mg/dl (0.2-1.0) 12/19/21 20:50 AST 21 U/L (13-39) 12/19/21 20:50 ALT 15 U/L (7-52) 12/19/21 20:50 Alkaline Phosphatase 74 U/L (34-104) 12/19/21 20:50 Troponin I High Sens 21.9 pg/ml (0-14) H 12/20/21 02:13 Total Protein 6.1 gm/dl (6.0-8.3) 12/19/21 20:50 Albumin 3.6 gm/dl (3.4-5.0) 12/19/21 20:50 Globulin 2.5 gm/dl (2.5-4.0) 12/19/21 20:50 Albumin/Globulin Ratio 1.4 (0.9-2) 12/19/21 20:50 Lipase 14 U/L (11-82) 12/19/21 20:50 Urine Color Yellow 12/20/21 02:15 Urine Appearance Clear (Clear) 12/20/21 02:15 Urine pH 5.0 (4.5-7.5) 12/20/21 02:15 Ur Specific [place] 1.012 (1.000-1.030) 12/20/21 02:15 Urine Protein Trace (Negative) H 12/20/21 02:15 Urine Glucose (UA) Negative (Negative) 12/20/21 02:15 Urine Ketones Negative (Negative) 12/20/21 02:15 Urine Blood Negative (Negative) 12/20/21 02:15 Urine Nitrite Negative (Negative) 12/20/21 02:15 Urine Bilirubin Negative (Negative) 12/20/21 02:15 Urine Urobilinogen Negative (Negative) 12/20/21 02:15 Ur Leukocyte Esterase Negative (Negative) 12/20/21 02:15 Urine WBC (Auto) 1-5 /hpf (0-5) 12/20/21 02:15 Urine RBC (Auto) 0-4 /hpf (0-4) 12/20/21 02:15 U Hyaline Cast (Auto) 0 /lpf (0-5) 12/20/21 02:15 U Epithel Cells (Auto) 5-10 /lpf (0-5) H 12/20/21 02:15 Urine Bacteria (Auto) Negative (Negative) 12/20/21 02:15 SARS-CoV-2, RNA, NAAT NEGATIVE (NEGATIVE) 12/20/21 00:00 Impressions Abdomen/Pelvis CT 12/19/21 20:[address] WITHOUT CONTRAST CT DOSE: 444.76 mGy.cm HISTORY: Acute generalized abdominal pain in patient with history of colonic diverticulosis. abd pain, diverticulitis, recent abscess TECHNIQUE: Multiaxial CT images of the abdomen and pelvis were performed without contrast. A dose lowering technique was utilized adhering to the principles of ALARA. COMPARISON STUDY 12/14/2021 FINDINGS: Cardiomegaly. Subsegmental bibasilar atelectasis/scarring is noted along with intralobular septal thickening of the lung bases. No gross pneumatosis or pneumoperitoneum. Limited evaluation of the solid abdominal organs without the use of IV contrast. The unenhanced spleen, mildly atrophic pancreas and adrenal glands are unremarkable. Cholelithiasis without CT evidence of acute cholecystitis. Questioned marginal nodularity of the liver. No hepatic lesion identified. There is mild nonspecific bilateral perinephric stranding. Mild cortical thinning of the kidneys. Punctate nonobstructing calculi of the inferior pole left kidney. No ureteral calculi or hydronephrosis. Atherosclerosis of the aorta without aneurysm. There are several prominent lymph nodes within the sigmoid mesocolon. No bowel obstruction. Scattered small bowel air-fluid levels are noted within the lower abdomen and pelvis. There is moderate fecal retention. Extensive colonic diverticulosis. Moderate wall thickening is noted within the sigmoid. There is improved acute diverticulitis involving the distal descending colon with persistent acute diverticulitis involving the proximal and mid sigmoid colon. Contained perforation/abscess within the sigmoid mesocolon on image 284 is stable in size measuring 3.2 x 2.7 cm containing fluid and air. There is an equivocal sinus tract extending towards the adjacent sigmoid. Tarlov cysts of the sacrum. No acute fracture. IMPRESSION: 1. Acute sigmoid diverticulitis redemonstrated with a stable contained perforation/abscess within the sigmoid mesocolon measuring 3.2 x 2.7 cm. There is an equivocal adjacent sinus tract extending towards the sigmoid colon. 2. Improved acute diverticulitis of the distal descending colon. 3. Cholelithiasis. 4. Left nephrolithiasis. 5. Additional findings as above. ACT 112: Negative or not required by law. The above report was generated using voice recognition software. It may contain grammatical, syntax or spelling errors. Electronically signed by: Rohit Gonsalez M.D. 12/20/2021 9:05 AM Medications Administered Current Inpatient Medications Enoxaparin Sodium (Enoxaparin Inj 40 Mg/0.4 Ml Syr) [facility] [place]: 01/20/22 08:59 Felodipine (Felodipine 5 Mg Tabcr) 10 mg PO QAM [facility] Stop: 01/19/22 08:59 Last Admin: 12/20/21 09:00 Dose: 10 mg Hydromorphone HCl (Hydromorphone Inj 0.5 Mg/0.5 Ml Syr) 0.5 mg IV Q1H PRN PRN Reason: Severe Pain Stop: 01/02/22 22:25 Potassium Chloride/Dextrose/Sod Cl (D5w And 1/2nss + 20meq Kcl) 20 meq in 1,000 mls @ 100 mls/hr IV .Q10H [facility]; Protocol Stop: 12/21/21 09:59 Last Admin: 12/20/21 05:08 Dose: 100 mls/hr Metronidazole (Flagyl) 500 mg in 100 mls @ 100 mls/hr IV Q8H [facility] Stop: 12/30/21 09:59 Last Infusion: 12/20/21 12:07 Dose: Infused Acetaminophen (Ofirmev) 1,000 mg in 100 mls @ 400 mls/hr IV Q8H [facility]; Protocol Stop: 12/23/21 04:59 Last Infusion: 12/20/21 05:03 Dose: Infused Ceftriaxone Sodium 2,000 mg/ (Dextrose) 70 mls @ 140 mls/hr IV Q24H [facility] Stop: 12/31/21 00:00 Indapamide (Indapamide 1.25 Mg Tab) 1.25 mg PO QAM [facility] Stop: 01/19/22 08:59 Last Admin: 12/20/21 09:00 Dose: 1.25 mg Irbesartan (Irbesartan 150 Mg Tab) 300 mg PO QAM [facility] Stop: 01/19/22 08:59 Last Admin: 12/20/21 09:00 Dose: 300 mg Labetalol HCl (Labetalol Hcl 100 Mg Tab) 100 mg PO BID [facility] Stop: 01/19/22 08:59 Last Admin: 12/20/21 09:01 Dose: 100 mg Metoprolol Tartrate (Metoprolol Tartrate 50 Mg Tab) 50 mg PO BID [facility] Stop: 01/19/22 08:59 Last Admin: 12/20/21 09:01 Dose: 50 mg Trazodone HCl (Trazodone Hcl 50 Mg Tab) 50 mg PO HS [facility] Stop: 01/19/22 20:59 Resident Activity Tracking Resident Involvement: Resident Care Provided Care Provided: Adult Hospital Medicine (1) Osteoarthritis of knees, bilateral Osteoarthritis type: primary Qualified Code(s): M17.0 - Bilateral primary osteoarthritis of knee (2) Abdominal pain Abdominal location: left lower quadrant Qualified Code(s): R10.32 - Left lower quadrant pain (3) HTN (hypertension) Hypertension type: essential hypertension Qualified Code(s): I10 - Essential (primary) hypertension
[2021-12-20] MEDS: FELODIPINE 5 MG TABCR PO SCH (09:00)
[2021-12-20] MEDS: INDAPAMIDE 1.25 MG TAB PO SCH (09:00)
[2021-12-20] MEDS: IRBESARTAN 150 MG TAB PO SCH (09:00)
[2021-12-20] MEDS: METOPROLOL TARTRATE 50 MG TAB PO SCH ×2 (09:01→20:45)
[2021-12-20] MEDS: LABETALOL HCL 100 MG TAB PO SCH ×2 (09:01→20:45)
--- NOTE | 2021-12-20 09:08 | CT Scan Report ---
ABDOMEN AND PELVIS CT WITHOUT CONTRAST CT DOSE: 444.76 mGy.cm HISTORY: Acute generalized abdominal pain in patient with history of colonic diverticulosis. abd alcides n, diverticulitis, recent abscess TECHNIQUE: Multiaxial CT images of the abdomen and pelvis were performed without contrast. A dose lo wering technique was utilized adhering to the principles of ALARA. COMPARISON STUDY 12/14/2021 FINDINGS: Cardiomegaly. Subsegmental bibasilar atelectasis/scarring is noted along with intralobular septal thickening of the lung bases. No gross pneumatosis or pneumoperitoneum. Limited evaluation of the solid abdominal organs without the use of IV contrast. The unenhanced spleen, mildly atrophic pancreas and adrenal glands are unremarkable. Cholelithiasis w ithout CT evidence of acute cholecystitis. Questioned marginal nodularity of the liver. No hepatic le rodolfo identified. There is mild nonspecific bilateral perinephric stranding. Mild cortical thinning of the kidneys. Punctate nonobstructing calculi of the inferior pole left kidney. No ureteral calculi o r hydronephrosis. Atherosclerosis of the aorta without aneurysm. There are several prominent lymph no babs within the sigmoid mesocolon. No bowel obstruction. Scattered small bowel air-fluid levels are noted within the lower abdomen and p bismark. There is moderate fecal retention. Extensive colonic diverticulosis. Moderate wall thickening is noted within the sigmoid. There is improved acute diverticulitis involving the distal descending c olon with persistent acute diverticulitis involving the proximal and mid sigmoid colon. Contained per foration/abscess within the sigmoid mesocolon on image 284 is stable in size measuring 3.2 x 2.7 cm c ontaining fluid and air. There is an equivocal sinus tract extending towards the adjacent sigmoid. Tarlov cysts of the sacrum. No acute fracture. IMPRESSION: 1. Acute sigmoid diverticulitis redemonstrated with a stable contained perforation/abscess within the sigmoid mesocolon measuring 3.2 x 2.7 cm. There is an equivocal adjacent sinus tract extending towar ds the sigmoid colon. 2. Improved acute diverticulitis of the distal descending colon. 3. Cholelithiasis. 4. Left nephrolithiasis. 5. Additional findings as above. ACT 112: Negative or not required by law. The above report was generated using voice recognition software. It may contain grammatical, syntax o r spelling errors. Electronically signed by: Rohit Gonsalez M.D. 12/20/2021 9:05 AM
[2021-12-20] MEDS: metroNIDAZOLE 500 MG/100 ML BAG IV SCH ×2 (10:20→18:26)
[2021-12-20] MEDS ORDERED: cefTRIAXone SODIUM 1,000 MG in DEXTROSE 5% 50 ML IV SCH (13:00)
--- NOTE | 2021-12-20 14:30 | Electrocardiogram Report ---
Test Reason : Blood Pressure : / mmHG Vent. Rate : 106 BPM Atrial Rate : 106 BPM P-R Int : 172 ms QRS Dur : 124 ms QT Int : 388 ms P-R-T Axes : 048 -55 056 degrees QTc Int : 515 ms Sinus tachycardia with occasional Premature ventricular complexes Premature atrial complexes Possible Left atrial enlargement Left axis deviation Left ventricular hypertrophy with QRS widening and repolarization abnormality Abnormal ECG When compared with ECG of 14-DEC-2021 21:00, No significant change was found Confirmed by Elmer Maldonado ([id number]) on 12/20/2021 2:29:24 PM Referred By: REFERRED SELF Confirmed By:Elmer Maldonado
[2021-12-20] MEDS ORDERED: SIMETHICONE 80 MG CHEW PO PRN (14:44)
[2021-12-20] MEDS ORDERED: ONDANSETRON INJ 2 MG/ML 2 ML VIAL IV ONE (14:45)
[2021-12-20] MEDS: traZODone HCL 50 MG TAB PO SCH (20:45)
[2021-12-20] MEDS: CALCIUM 600MG + VIT D 400 IU TAB PO SCH (20:45)
[2021-12-20] MEDS: cefTRIAXone SODIUM 2,000 MG in DEXTROSE 5% 50 ML IV SCH (23:42)
[2021-12-21] MEDS: metroNIDAZOLE 500 MG/100 ML BAG IV SCH ×3 (01:51→18:12)
[2021-12-21] MEDS: D5W AND 1/2NSS + 20MEQ KCL 20 MEQ/1,000 ML BAG IV SCH ×2 (03:26→05:22)
[2021-12-21] MEDS: ACETAMINOPHEN 1,000 MG/100 ML VIAL IV SCH (05:22)
[2021-12-21 06:23] LABS: Basophils # (auto) 0.06 K/uL (0-0.2); Basophils % (auto) 0.7 %; Eosinophils # (auto) 0.41 K/uL (0-0.50); Eosinophils % (auto) 5.1 %; Hematocrit (blood only) 31.9 % (34.1-44.9); Hemoglobin 10.6 g/dl (12.0-16.0); Immature Granulocytes # (auto) 0.01 K/uL (0.00-0.02); Immature Granulocytes % (auto) 0.1 %; Lymphocytes # (auto) 1.15 K/uL (1.2-3.4); Lymphocytes % (auto) 14.3 %; Mean Corpuscular Hemoglobin 29.2 pg (25.0-34.0); Mean Corpuscular Hgb Conc 33.2 g/dL (32.0-36.0); Mean Corpuscular Volume 87.9 fL (80.0-100.0); Monocytes # (auto) 1.19 K/uL (0.24-0.82); Monocytes % (auto) 14.8 %; Neutrophils # (auto) 5.21 K/uL (1.4-6.5); Platelet Count 233 K/uL (130-400); RDW Coefficient of Variation 14.9 % (11.5-14.5); RDW Standard Deviation 47.8 fL (36.4-46.3); Red Blood Count 3.63 M/uL (3.93-5.22); White Blood Count 8.03 K/ul (4.8-10.8)
[2021-12-21 06:55] LABS: Albumin Globulin Ratio 1.5 (0.9-2); BUN Creatinine Ratio 9.2 (10-20); Bilirubin,Total 0.5 mg/dl (0.2-1.0); Calcium 8.1 mg/dl (8.5-10.1); Creatinine Clr Calc Pharmacy 52.5 ml/min; Est GFR (African American) 81.7 ml/min; Est GFR (Non-African American) 70.5 ml/min; Phosphorus 2.7 mg/dl (2.5-4.9); Potassium 3.2 mmol/L (3.5-5.1)
--- NOTE | 2021-12-21 07:00 | Hospitalist Progress Note ---
Date of Service December 21, 2021 Assessment & Plan (1) Diverticulitis: Plan: 86yo female with a history of multiple episodes of diverticulitis, CKD3, HTN, mitral regurgitation, fibromyalgia, and knee OA presents with a two-day history of worsening abdominal pain, nausea, and poor appetite after recent hospitalization for acute complicated diverticulitis with contained perforation. Acute complicated sigmoid diverticulitis with contained perforation Recent hospital stay from 12/14 to 12/17 for acute complicated diverticulitis with contained perforation; initially, clinically improved while on intravenous ceftriaxone+metronidazole; however, symptoms worsened after patient returned home on oral cefdinir+metronidazole. Note this is expected as part of improving clinical course as patient resumes bowel movements. wbc 13.4 CT abdomen/pelvis showing improving sigmoid diverticulitis with contained perforation, 3.4 x 2.6cm collection of fluid and gas; imaging relatively unchanged from prior CT (12/14) consult general surgery: continue medical management, advance diet to low fiber Continue ceftriaxone IV, metronidazole IV, dc'd IVF Pain control: APAP PO 1000mg q8h PRN Lactate wnl, blood cultures no growth 24hr Trend daily CBC, electrolytes, renal function -Plan to continue to advance diet, gradually transition to fully PO medication and resumed bowel function while in hospital Prolonged QTc EKG on admission notable for QTc of 515 as well as sinus tachycardia, LVH, and widened QRS Caution with further QTc-prolonging meds Repleted potassium Hypokalemia Potassium on admission 3.2 Repleted with IVF and oral KCl Magnesium 1.8 Trend daily Diarrhea Patient's first BM since hospitalization, possible relation to transition from IV to PO medication but unlikely Rest of management as above Elevated troponin - downtrending On admission, hsTroponin minimally elevated to 16.6, downtrending EKG without evidence of acute ischemia, patient without CP Insomnia: home trazodone HTN: home regimen Systolic dysfunction, valvular disease: home regimen FEN: regular low fat low fiber diet Code status: DNR/DNI DVT ppx: SCDs Consults: general surgery Dispo: med/surg Surrogate decision maker in case of an emergency: Marii Landon ([phone]) (2) Elevated troponin: (3) HTN (hypertension): (4) Hypokalemia: (5) Moderate to severe mitral regurgitation: (6) Nausea: (7) Osteoarthritis of knees, bilateral: (8) Abdominal pain: (9) Chronic kidney disease, stage 3a: Admission and Anticipated Discharge Date Admission Date: December 20, 2021 Supervising Physician Co-Signing Physician Notes Resident Physician Supervision Note: I independently interviewed and examined the patient and verified the bravo history and physical, reviewed labs and image studies and agree with resident Dr. Lugo findings and care plan. Subjective Patient seen at bedside, calm comfortable cooperative. She states she is tolerating her full liquid diet well, still has mild abdominal pain but much better "now that I'm on IV antibiotics", states she still has diarrhea but it is improving. Describes abd pain in RLQ. Patient states she still feels very fearfull of the abdominal pain she had at home with the diarrhea, still attributes the pain to her PO abx, states she wants to go home but prioritizes being well first. Otherwise no acute concerns at this time. Review of Systems Review of Systems: Positive abd pain Negative fever chills Negative headache dizziness Negative chest pain palpitations SOB Negative nausea vomitting diarrhea constipation Negative numbness tingling rash swelling Physical Exam Constitutional: WD/WN, vitals as above Eyes: PERRL, conjunctivae normal, anicteric sclerae ENMT: external ear and nose normal, oropharynx normal Neck: trachea midline, no thyromegaly Respiratory: normal respiratory effort, lungs clear to auscultation Cardiovascular: RRR, no murmur, no edema Chest (Breasts): Chest: normal inspection of chest Gastrointestinal (Abdomen): Inspection/Auscultation: abdomen normal to inspection Percussion/Palpation: + abdomen tender (mild diffuse RLQ) and abdomen soft Skin: no rashes, warm and dry Results & Data Results & Data ([facility]) Vital Signs (Past 12 Hours) Vital Signs Temp Pulse Resp BP Pulse Ox O2 Del Method 12/20/21 22:29 36.8 C 73 17 135/79 93 Room Air 12/20/21 20:40 Room Air Diagnostic Findings Laboratory Results WBC 8.03 K/ul (4.8-10.8) 12/21/21 06:03 RBC 3.63 M/uL (3.93-5.22) L 12/21/21 06:03 Hgb 10.6 g/dl (12.0-16.0) L 12/21/21 06:03 Hct 31.9 % (34.1-44.9) L 12/21/21 06:03 MCV 87.9 fL (80.0-100.0) 12/21/21 06:03 MCH 29.2 pg (25.0-34.0) 12/21/21 06:03 MCHC 33.2 g/dL (32.0-36.0) 12/21/21 06:03 RDW Std Deviation 47.8 fL (36.4-46.3) H 12/21/21 06:03 RDW Coeff of Mari 14.9 % (11.5-14.5) H 12/21/21 06:03 Plt Count 233 K/uL (130-400) 12/21/21 06:03 MPV 10.0 fL (9.4-12.3) 12/21/21 06:03 Immature Gran % (Auto) 0.1 % 12/21/21 06:03 Neut % (Auto) 65.0 % 12/21/21 06:03 Lymph % (Auto) 14.3 % 12/21/21 06:03 Warrick % (Auto) 14.8 % 12/21/21 06:03 Eos % (Auto) 5.1 % 12/21/21 06:03 Baso % (Auto) 0.7 % 12/21/21 06:03 Neut # (Auto) 5.21 K/uL (1.4-6.5) 12/21/21 06:03 Lymph # (Auto) 1.15 K/uL (1.2-3.4) L 12/21/21 06:03 Warrick # (Auto) 1.19 K/uL (0.24-0.82) H 12/21/21 06:03 Eos # (Auto) 0.41 K/uL (0-0.50) 12/21/21 06:03 Baso # (Auto) 0.06 K/uL (0-0.2) 12/21/21 06:03 Immature Gran # (Auto) 0.01 K/uL (0.00-0.02) 12/21/21 06:03 Sodium 138 mmol/L (136-145) 12/21/21 06:03 Potassium 3.2 mmol/L (3.5-5.1) L 12/21/21 06:03 Chloride 105 mmol/L (98-107) 12/21/21 06:03 Carbon Dioxide 27 mmol/L (21-32) 12/21/21 06:03 Anion Gap 6 (3-11) 12/21/21 06:03 BUN 7 mg/dl (6-23) 12/21/21 06:03 Creatinine 0.76 mg/dl (0.6-1.2) 12/21/21 06:03 Est Cr Clr Drug Dosing 52.5 ml/min 12/21/21 06:03 Est GFR ( Amer) 81.7 ml/min 12/21/21 06:03 Est GFR (Non-Af Amer) 70.5 ml/min 12/21/21 06:03 BUN/Creatinine Ratio 9.2 (10-20) L 12/21/21 06:03 Glucose 110 mg/dl (70-99(Fasting)) H 12/21/21 06:03 Lactate 1.0 mmol/L (0.4-2.0) 12/20/21 02:13 Calcium 8.1 mg/dl (8.5-10.1) L 12/21/21 06:03 Phosphorus 2.7 mg/dl (2.5-4.9) 12/21/21 06:03 Magnesium 1.8 mg/dl (1.7-2.4) 12/20/21 02:13 Total Bilirubin 0.5 mg/dl (0.2-1.0) 12/21/21 06:03 AST 10 U/L (13-39) L 12/21/21 06:03 ALT 9 U/L (7-52) 12/21/21 06:03 Alkaline Phosphatase 60 U/L (34-104) 12/21/21 06:03 Troponin I High Sens 16.5 pg/ml (0-14) H D 12/20/21 15:26 Total Protein 5.0 gm/dl (6.0-8.3) L D 12/21/21 06:03 Albumin 3.0 gm/dl (3.4-5.0) L 12/21/21 06:03 Globulin 2.0 gm/dl (2.5-4.0) L 12/21/21 06:03 Albumin/Globulin Ratio 1.5 (0.9-2) 12/21/21 06:03 Lipase 14 U/L (11-82) 12/19/21 20:50 Urine Color Yellow 12/20/21 02:15 Urine Appearance Clear (Clear) 12/20/21 02:15 Urine pH 5.0 (4.5-7.5) 12/20/21 02:15 Ur Specific [place] 1.012 (1.000-1.030) 12/20/21 02:15 Urine Protein Trace (Negative) H 12/20/21 02:15 Urine Glucose (UA) Negative (Negative) 12/20/21 02:15 Urine Ketones Negative (Negative) 12/20/21 02:15 Urine Blood Negative (Negative) 12/20/21 02:15 Urine Nitrite Negative (Negative) 12/20/21 02:15 Urine Bilirubin Negative (Negative) 12/20/21 02:15 Urine Urobilinogen Negative (Negative) 12/20/21 02:15 Ur Leukocyte Esterase Negative (Negative) 12/20/21 02:15 Urine WBC (Auto) 1-5 /hpf (0-5) 12/20/21 02:15 Urine RBC (Auto) 0-4 /hpf (0-4) 12/20/21 02:15 U Hyaline Cast (Auto) 0 /lpf (0-5) 12/20/21 02:15 U Epithel Cells (Auto) 5-10 /lpf (0-5) H 12/20/21 02:15 Urine Bacteria (Auto) Negative (Negative) 12/20/21 02:15 SARS-CoV-2, RNA, NAAT NEGATIVE (NEGATIVE) 12/20/21 00:00 Impressions Abdomen/Pelvis CT 12/19/21 20:[address] WITHOUT CONTRAST CT DOSE: 444.76 mGy.cm HISTORY: Acute generalized abdominal pain in patient with history of colonic diverticulosis. abd pain, diverticulitis, recent abscess TECHNIQUE: Multiaxial CT images of the abdomen and pelvis were performed without contrast. A dose lowering technique was utilized adhering to the principles of ALARA. COMPARISON STUDY 12/14/2021 FINDINGS: Cardiomegaly. Subsegmental bibasilar atelectasis/scarring is noted along with intralobular septal thickening of the lung bases. No gross pneumatosis or pneumoperitoneum. Limited evaluation of the solid abdominal organs without the use of IV contrast. The unenhanced spleen, mildly atrophic pancreas and adrenal glands are unremarkable. Cholelithiasis without CT evidence of acute cholecystitis. Questioned marginal nodularity of the liver. No hepatic lesion identified. There is mild nonspecific bilateral perinephric stranding. Mild cortical thinning of the kidneys. Punctate nonobstructing calculi of the inferior pole left kidney. No ureteral calculi or hydronephrosis. Atherosclerosis of the aorta without aneurysm. There are several prominent lymph nodes within the sigmoid mesocolon. No bowel obstruction. Scattered small bowel air-fluid levels are noted within the lower abdomen and pelvis. There is moderate fecal retention. Extensive colonic diverticulosis. Moderate wall thickening is noted within the sigmoid. There is improved acute diverticulitis involving the distal descending colon with persistent acute diverticulitis involving the proximal and mid sigmoid colon. Contained perforation/abscess within the sigmoid mesocolon on image 284 is stable in size measuring 3.2 x 2.7 cm containing fluid and air. There is an equivocal sinus tract extending towards the adjacent sigmoid. Tarlov cysts of the sacrum. No acute fracture. IMPRESSION: 1. Acute sigmoid diverticulitis redemonstrated with a stable contained perforation/abscess within the sigmoid mesocolon measuring 3.2 x 2.7 cm. There is an equivocal adjacent sinus tract extending towards the sigmoid colon. 2. Improved acute diverticulitis of the distal descending colon. 3. Cholelithiasis. 4. Left nephrolithiasis. 5. Additional findings as above. ACT 112: Negative or not required by law. The above report was generated using voice recognition software. It may contain grammatical, syntax or spelling errors. Electronically signed by: Rohit Gonsalez M.D. 12/20/2021 9:05 AM Medications Administered Current Inpatient Medications Enoxaparin Sodium (Enoxaparin Inj 40 Mg/0.4 Ml Syr) 40 mg SQ QAM [facility] Stop: 01/20/22 08:59 Last Admin: 12/21/21 08:39 Dose: 40 mg Felodipine (Felodipine 5 Mg Tabcr) 10 mg PO QAM [facility] Stop: 01/19/22 08:59 Last Admin: 12/21/21 08:38 Dose: 10 mg Hydromorphone HCl (Hydromorphone Inj 0.5 Mg/0.5 Ml Syr) 0.5 mg IV Q1H PRN PRN Reason: Severe Pain Stop: 01/02/22 22:25 Metronidazole (Flagyl) 500 mg in 100 mls @ 100 mls/hr IV Q8H [facility] Stop: 12/30/21 09:59 Last Infusion: 12/21/21 10:28 Dose: Infused Acetaminophen (Ofirmev) 1,000 mg in 100 mls @ 400 mls/hr IV Q8H [facility]; Protocol Stop: 12/23/21 04:59 Last Infusion: 12/21/21 05:51 Dose: Infused Ceftriaxone Sodium 2,000 mg/ (Dextrose) 70 mls @ 140 mls/hr IV Q24H [facility] Stop: 12/31/21 00:00 Last Infusion: 12/21/21 00:17 Dose: Infused Indapamide (Indapamide 1.25 Mg Tab) 1.25 mg PO QAM [facility] Stop: 01/19/22 08:59 Last Admin: 12/21/21 08:38 Dose: 1.25 mg Irbesartan (Irbesartan 150 Mg Tab) 300 mg PO QAM [facility] Stop: 01/19/22 08:59 Last Admin: 12/21/21 08:38 Dose: 300 mg Labetalol HCl (Labetalol Hcl 100 Mg Tab) 100 mg PO BID [facility] Stop: 01/19/22 08:59 Last Admin: 12/21/21 08:38 Dose: 100 mg Lactobacillus Acidophilus (Advanced Probiotic 1250 Mg Capsule) 2 cap PO DAILY [facility] Stop: 01/20/22 08:59 Last Admin: 12/21/21 08:38 Dose: 2 cap Metoprolol Tartrate (Metoprolol Tartrate 50 Mg Tab) 50 mg PO BID [facility] Stop: 01/19/22 08:59 Last Admin: 12/21/21 08:39 Dose: 50 mg Multivitamins/Minerals (Calcium 600mg + Vit D 400 Iu Tab) 1 tab PO PM JJ Stop: 01/19/22 20:59 Last Admin: 12/20/21 20:45 Dose: 1 tab Polyethylene Glycol (Polyethylene (Miralax) 17 Gm Pack) 17 gm PO DAILY PRN PRN Reason: Constipation Stop: 01/20/22 11:10 Simethicone (Simethicone 80 Mg Chew) 80 mg PO Q6H PRN PRN Reason: Gas or Constipation Stop: 01/19/22 14:43 Trazodone HCl (Trazodone Hcl 50 Mg Tab) 50 mg PO HS JJ Stop: 01/19/22 20:59 Last Admin: 12/20/21 20:45 Dose: 50 mg Vitamin D (Cholecalciferol 1,000 Units 25 Mcg Tab) 2,000 units PO QAM JJ Stop: 01/20/22 08:59 Last Admin: 12/21/21 08:38 Dose: 2,000 units Resident Activity Tracking Resident Involvement: Resident Care Provided Care Provided: Adult [facility] Medicine (1) Osteoarthritis of knees, bilateral Osteoarthritis type: primary Qualified Code(s): M17.0 - Bilateral primary osteoarthritis of knee (2) Abdominal pain Abdominal location: left lower quadrant Qualified Code(s): R10.32 - Left lower quadrant pain (3) HTN (hypertension) Hypertension type: essential hypertension Qualified Code(s): I10 - Essential (primary) hypertension
--- NOTE | 2021-12-21 07:44 | Surgery Progress Note ---
Date of Service December 21, 2021 Assessment & Plan (1) Diverticulitis of intestine with perforation and abscess: Plan: Patient here as re-admit with diverticulitis + intramural abscess, stable from most recent CT rfindings Today WBC 8 and she is afebrile Reports improvement in symptoms. Tolerating clears. Pain improving. + bowel function (loose stools) Can trial advancing diet as tolerates, full liquids this AM, then eventually to low fiber Complete full course of abx Admission and Anticipated Discharge Date Admission Date: December 20, 2021 Subjective Patient says she is feeling better. Tolerating clears, did have some mild nausea yesterday but no emesis and nothing further today. She say the pain is gone but still has some left sided soreness. She is feeling hungry. Reports some loose stools. Overall feeling better than admission. Physical Exam Physical Exam: awake/alert Gastrointestinal (Abdomen): Inspection/Auscultation: abdomen not distended Percussion/Palpation: + abdomen tender (mild discomfort to palpation in left lower abdomen) and abdomen soft Results & Data ([facility]) Vital Signs (Past 12 Hours) Vital Signs Temp Pulse Resp BP Pulse Ox O2 Del Method 12/21/21 07:10 36.7 C 80 14 157/84 H 94 Room Air 12/20/21 22:29 36.8 C 73 17 135/79 93 Room Air 12/20/21 20:40 Room Air PG Care Time/CCT Total # of Minutes Spent Total Time Spent with Patient: Total time spent is greater than 50% in coordination of care (as documented) at patient's floor/unit and/or counseling patient: Coding Level of Care Code 23610 Subseq Hosp Care Lvl 1 Diagnoses Diverticulitis of intestine with perforation and abscess K57.20 Diverticulitis bleeding: unspecified bleeding status Diverticulitis site: large intestine (1) Diverticulitis of intestine with perforation and abscess Diverticulitis bleeding: unspecified bleeding status Diverticulitis site: large intestine Qualified Code(s): K57.20 - Diverticulitis of large intestine with perforation and abscess without bleeding
[2021-12-21] MEDS: IRBESARTAN 150 MG TAB PO SCH (08:38)
[2021-12-21] MEDS: ADVANCED PROBIOTIC 1250 MG CAPSULE PO SCH (08:38)
[2021-12-21] MEDS: INDAPAMIDE 1.25 MG TAB PO SCH (08:38)
[2021-12-21] MEDS: CHOLECALCIFEROL 1,000 UNITS 25 MCG TAB PO SCH (08:38)
[2021-12-21] MEDS: LABETALOL HCL 100 MG TAB PO SCH ×2 (08:38→20:52)
[2021-12-21] MEDS: FELODIPINE 5 MG TABCR PO SCH (08:38)
[2021-12-21] MEDS: ENOXAPARIN INJ 40 MG/0.4 ML SYR SQ SCH (08:39)
[2021-12-21] MEDS: METOPROLOL TARTRATE 50 MG TAB PO SCH ×2 (08:39→20:51)
[2021-12-21] MEDS ORDERED: POTASSIUM CHLORIDE PWD 20 MEQ PACK PO ONE (10:00)
[2021-12-21] MEDS ORDERED: POLYETHYLENE (MIRALAX) 17 GM PACK PO PRN (11:11)
[2021-12-21] MEDS ORDERED: ACETAMINOPHEN 500 MG TAB PO PRN (11:20)
[2021-12-21] MEDS: CALCIUM 600MG + VIT D 400 IU TAB PO SCH (20:51)
[2021-12-21] MEDS: traZODone HCL 50 MG TAB PO SCH (21:07)
[2021-12-22] MEDS: cefTRIAXone SODIUM 2,000 MG in DEXTROSE 5% 50 ML IV SCH (01:45)
[2021-12-22] MEDS: metroNIDAZOLE 500 MG/100 ML BAG IV SCH ×2 (02:50→10:09)
--- NOTE | 2021-12-22 06:29 | Surgery Progress Note ---
Date of Service December 22, 2021 Assessment & Plan (1) Diverticulitis: Plan: From my point of view the patient can probably be discharged tomorrow on a low fiber diet Patient cannot take Cipro Flagyl consider giving Augmentin for another 10 days when discharged No need to follow-up with a CAT scan unless the clinical picture deteriorates She can follow-up with Dr. Morales as planned on her last admission Admission and Anticipated Discharge Date Admission Date: December 20, 2021 Subjective She feels much better today she has had multiple bowel movements some formed denies any nausea and minimal abdominal pain Tolerating low fiber diet Physical Exam Physical Exam: Resting comfortably in bed without any issues The abdomen is soft minimal to no guarding in left lower quadrant of the round iliac crest Results & Data ([facility]) Vital Signs (Past 12 Hours) Vital Signs Temp Pulse Resp BP Pulse Ox O2 Del Method 12/21/21 22:39 36.3 C L 83 17 155/82 H 94 Room Air Laboratory Results Noted PG Care Time/CCT Total # of Minutes Spent Total Time Spent with Patient: Total time spent is greater than 50% in coordination of care (as documented) at patient's floor/unit and/or counseling patient: Coding Level of Care Code 33960 Subseq Hosp Care Lvl 2 Diagnoses Diverticulitis K57.92
[2021-12-22 08:22] LABS: Hematocrit (blood only) 35.3 % (34.1-44.9); Hemoglobin 11.4 g/dl (12.0-16.0); Mean Corpuscular Hemoglobin 29.4 pg (25.0-34.0); Mean Corpuscular Hgb Conc 32.3 g/dL (32.0-36.0); Mean Platelet Volume 10.3 fL (9.4-12.3); Platelet Count 262 K/uL (130-400); RDW Coefficient of Variation 15.2 % (11.5-14.5); RDW Standard Deviation 50.3 fL (36.4-46.3); Red Blood Count 3.88 M/uL (3.93-5.22); White Blood Count 6.51 K/ul (4.8-10.8)
[2021-12-22] MEDS: LABETALOL HCL 100 MG TAB PO SCH ×2 (08:41→20:46)
[2021-12-22] MEDS: METOPROLOL TARTRATE 50 MG TAB PO SCH ×2 (08:41→20:46)
[2021-12-22] MEDS: INDAPAMIDE 1.25 MG TAB PO SCH (08:42)
[2021-12-22] MEDS: IRBESARTAN 150 MG TAB PO SCH (08:42)
[2021-12-22] MEDS: FELODIPINE 5 MG TABCR PO SCH (08:43)
[2021-12-22] MEDS: CHOLECALCIFEROL 1,000 UNITS 25 MCG TAB PO SCH (08:43)
[2021-12-22] MEDS: ENOXAPARIN INJ 40 MG/0.4 ML SYR SQ SCH (08:44)
[2021-12-22] MEDS: ADVANCED PROBIOTIC 1250 MG CAPSULE PO SCH (08:44)
[2021-12-22 08:46] LABS: Calcium 8.9 mg/dl (8.5-10.1); Creatinine Clr Calc Pharmacy 44.8 ml/min; Est GFR (African American) 67.5 ml/min; Est GFR (Non-African American) 58.3 ml/min; Potassium 3.5 mmol/L (3.5-5.1)
--- NOTE | 2021-12-22 09:29 | Hospitalist Progress Note ---
Date of Service December 22, 2021 Assessment & Plan (1) Diverticulitis: Plan: 86yo female with a history of multiple episodes of diverticulitis, CKD3, HTN, mitral regurgitation, fibromyalgia, and knee OA presents with a two-day history of worsening abdominal pain, nausea, and poor appetite after recent hospitalization for acute complicated diverticulitis with contained perforation. Acute complicated sigmoid diverticulitis with contained perforation Recent hospital stay from 12/14 to 12/17 for acute complicated diverticulitis with contained perforation; initially, clinically improved while on intravenous ceftriaxone+metronidazole; however, symptoms worsened after patient returned home on oral cefdinir+metronidazole. Note this is expected as part of improving clinical course as patient resumes bowel movements. wbc 13.[address] abdomen/pelvis showing improving sigmoid diverticulitis with contained perforation, 3.4 x 2.6cm collection of fluid and gas; imaging relatively unchanged from prior CT (12/14) consult general surgery: continue medical management, advance diet to low fiber, consider PO abx 10 days Has recieved ceftriaxone IV, metronidazole IV 8 days total (out of total 14 days, took 1 day PO abx at home missed 2 days at home) Pain control: APAP PO 1000mg q8h PRN Lactate wnl, blood cultures no growth Trend daily CBC, electrolytes, renal function -Patient agreed to trial Augmentin 875mg, if tolerates well can go home on Augmentin 875 TID 10 days Prolonged QTc EKG on admission notable for QTc of 515 as well as sinus tachycardia, LVH, and widened QRS Caution with further QTc-prolonging meds Repleted potassium Hypokalemia - repleted Potassium on admission 3.2 Magnesium 1.8 Trend Diarrhea - C diff colitis Patient's first BM since hospitalization, possible relation to transition from IV to PO medication but unlikely C diff positive - start oral vanco Elevated troponin - downtrending On admission, hsTroponin minimally elevated to 16.6, downtrending EKG without evidence of acute ischemia, patient without CP Insomnia: home trazodone HTN: home regimen Systolic dysfunction, valvular disease: home regimen FEN: regular low fat low fiber diet Code status: DNR/DNI DVT ppx: SCDs Consults: general surgery Dispo: med/surg Surrogate decision maker in case of an emergency: Marii Landon ([phone]) (2) Elevated troponin: (3) HTN (hypertension): (4) Hypokalemia: (5) Moderate to severe mitral regurgitation: (6) Nausea: (7) Osteoarthritis of knees, bilateral: (8) Abdominal pain: (9) Chronic kidney disease, stage 3a: Admission and Anticipated Discharge Date Admission Date: December 20, 2021 Supervising Physician Co-Signing Physician Notes Resident Physician Supervision Note: I independently interviewed and examined the patient and verified the bravo history and physical, reviewed labs and image studies and agree with resident Dr. Lugo findings and care plan. Subjective Patient seen at bedside, calm comfortable cooperative. She states she is still bothered by diarrhea, occasionally cannot make it to the bathroom on time, it is more solid than before but having it makes her feel hopeless. Patient states abd pain improved, still has soreness mainly in RLQ. Otherwise describes good appetite tolerating low fiber regular diet well. She states she does not wish to try PO augmentin again as she feels it does not interact well with her, ultimately wishes to go home safely. Patient understands she is listed with an allergy to penicillin, understands she is tolerating rocephin a close relative of penicillin well. She states her original penicillin reaction was 15 years ago with large patches of hives. Patient aware we are looking for options of abx she can take at home, she is open to trying 1 dose augmentin and seeing how things go, understands we have benadryl on standby if she has a reaction. Review of Systems Review of Systems: Positive abd soreness Negative fever chills Negative headache dizziness Negative chest pain palpitations SOB Negative nausea vomitting diarrhea constipation Negative numbness tingling rash swelling Physical Exam Constitutional: WD/WN, vitals as above Eyes: PERRL, conjunctivae normal, anicteric sclerae ENMT: external ear and nose normal, oropharynx normal Neck: trachea midline, no thyromegaly Respiratory: normal respiratory effort, lungs clear to auscultation Cardiovascular: RRR, no murmur, no edema Chest (Breasts): Chest: normal inspection of chest Gastrointestinal (Abdomen): Inspection/Auscultation: abdomen normal to inspection Percussion/Palpation: + abdomen tender (mild diffuse RLQ) and abdomen soft Skin: no rashes, warm and dry Results & Data Results & Data ([facility]) Vital Signs (Past 12 Hours) Vital Signs Temp Pulse Resp BP Pulse Ox O2 Del Method 12/22/21 07:57 36.6 C 85 16 151/91 H 94 Room Air 12/21/21 22:39 36.3 C L 83 17 155/82 H 94 Room Air Diagnostic Findings Laboratory Results WBC 6.51 K/ul (4.8-10.8) 12/22/21 07:21 RBC 3.88 M/uL (3.93-5.22) L 12/22/21 07:21 Hgb 11.4 g/dl (12.0-16.0) L 12/22/21 07:21 Hct 35.3 % (34.1-44.9) 12/22/21 07:21 MCV 91.0 fL (80.0-100.0) 12/22/21 07:21 MCH 29.4 pg (25.0-34.0) 12/22/21 07:21 MCHC 32.3 g/dL (32.0-36.0) 12/22/21 07:21 RDW Std Deviation 50.3 fL (36.4-46.3) H 12/22/21 07:21 RDW Coeff of Mari 15.2 % (11.5-14.5) H 12/22/21 07:21 Plt Count 262 K/uL (130-400) 12/22/21 07:21 MPV 10.3 fL (9.4-12.3) 12/22/21 07:21 Immature Gran % (Auto) 0.1 % 12/21/21 06:03 Neut % (Auto) 65.0 % 12/21/21 06:03 Lymph % (Auto) 14.3 % 12/21/21 06:03 [place] % (Auto) 14.8 % 12/21/21 06:03 Eos % (Auto) 5.1 % 12/21/21 06:03 Baso % (Auto) 0.7 % 12/21/21 06:03 Neut # (Auto) 5.21 K/uL (1.4-6.5) 12/21/21 06:03 Lymph # (Auto) 1.15 K/uL (1.2-3.4) L 12/21/21 06:03 [place] # (Auto) 1.19 K/uL (0.24-0.82) H 12/21/21 06:03 Eos # (Auto) 0.41 K/uL (0-0.50) 12/21/21 06:03 Baso # (Auto) 0.06 K/uL (0-0.2) 12/21/21 06:03 Immature Gran # (Auto) 0.01 K/uL (0.00-0.02) 12/21/21 06:03 Sodium 138 mmol/L (136-145) 12/22/21 07:21 Potassium 3.5 mmol/L (3.5-5.1) 12/22/21 07:21 Chloride 104 mmol/L (98-107) 12/22/21 07:21 Carbon Dioxide 28 mmol/L (21-32) 12/22/21 07:21 Anion Gap 6 (3-11) 12/22/21 07:21 BUN 8 mg/dl (6-23) 12/22/21 07:21 Creatinine 0.89 mg/dl (0.6-1.2) 12/22/21 07:21 Est Cr Clr Drug Dosing 44.8 ml/min 12/22/21 07:21 Est GFR ( Amer) 67.5 ml/min 12/22/21 07:21 Est GFR (Non-Af Amer) 58.3 ml/min 12/22/21 07:21 BUN/Creatinine Ratio 9.0 (10-20) L 12/22/21 07:21 Glucose 91 mg/dl (70-99(Fasting)) 12/22/21 07:21 Lactate 1.0 mmol/L (0.4-2.0) 12/20/21 02:13 Calcium 8.9 mg/dl (8.5-10.1) 12/22/21 07:21 Phosphorus 2.7 mg/dl (2.5-4.9) 12/21/21 06:03 Magnesium 1.8 mg/dl (1.7-2.4) 12/20/21 02:13 Total Bilirubin 0.5 mg/dl (0.2-1.0) 12/21/21 06:03 AST 10 U/L (13-39) L 12/21/21 06:03 ALT 9 U/L (7-52) 12/21/21 06:03 Alkaline Phosphatase 60 U/L (34-104) 12/21/21 06:03 Troponin I High Sens 16.5 pg/ml (0-14) H D 12/20/21 15:26 Total Protein 5.0 gm/dl (6.0-8.3) L D 12/21/21 06:03 Albumin 3.0 gm/dl (3.4-5.0) L 12/21/21 06:03 Globulin 2.0 gm/dl (2.5-4.0) L 12/21/21 06:03 Albumin/Globulin Ratio 1.5 (0.9-2) 12/21/21 06:03 Lipase 14 U/L (11-82) 12/19/21 20:50 Urine Color Yellow 12/20/21 02:15 Urine Appearance Clear (Clear) 12/20/21 02:15 Urine pH 5.0 (4.5-7.5) 12/20/21 02:15 Ur Specific [place] 1.012 (1.000-1.030) 12/20/21 02:15 Urine Protein Trace (Negative) H 12/20/21 02:15 Urine Glucose (UA) Negative (Negative) 12/20/21 02:15 Urine Ketones Negative (Negative) 12/20/21 02:15 Urine Blood Negative (Negative) 12/20/21 02:15 Urine Nitrite Negative (Negative) 12/20/21 02:15 Urine Bilirubin Negative (Negative) 12/20/21 02:15 Urine Urobilinogen Negative (Negative) 12/20/21 02:15 Ur Leukocyte Esterase Negative (Negative) 12/20/21 02:15 Urine WBC (Auto) 1-5 /hpf (0-5) 12/20/21 02:15 Urine RBC (Auto) 0-4 /hpf (0-4) 12/20/21 02:15 U Hyaline Cast (Auto) 0 /lpf (0-5) 12/20/21 02:15 U Epithel Cells (Auto) 5-10 /lpf (0-5) H 12/20/21 02:15 Urine Bacteria (Auto) Negative (Negative) 12/20/21 02:15 SARS-CoV-2, RNA, NAAT NEGATIVE (NEGATIVE) 12/20/21 00:00 Impressions Abdomen/Pelvis CT 07/24/22 20:[address] WITHOUT CONTRAST CT DOSE: 444.76 mGy.cm HISTORY: Acute generalized abdominal pain in patient with history of colonic diverticulosis. abd pain, diverticulitis, recent abscess TECHNIQUE: Multiaxial CT images of the abdomen and pelvis were performed without contrast. A dose lowering technique was utilized adhering to the principles of ALARA. COMPARISON STUDY 12/14/2021 FINDINGS: Cardiomegaly. Subsegmental bibasilar atelectasis/scarring is noted along with intralobular septal thickening of the lung bases. No gross pneumatosis or pneumoperitoneum. Limited evaluation of the solid abdominal organs without the use of IV contrast. The unenhanced spleen, mildly atrophic pancreas and adrenal glands are unremarkable. Cholelithiasis without CT evidence of acute cholecystitis. Questioned marginal nodularity of the liver. No hepatic lesion identified. There is mild nonspecific bilateral perinephric stranding. Mild cortical thinning of the kidneys. Punctate nonobstructing calculi of the inferior pole left kidney. No ureteral calculi or hydronephrosis. Atherosclerosis of the aorta without aneurysm. There are several prominent lymph nodes within the sigmoid mesocolon. No bowel obstruction. Scattered small bowel air-fluid levels are noted within the lower abdomen and pelvis. There is moderate fecal retention. Extensive colonic diverticulosis. Moderate wall thickening is noted within the sigmoid. There is improved acute diverticulitis involving the distal descending colon with persistent acute diverticulitis involving the proximal and mid sigmoid colon. Contained perforation/abscess within the sigmoid mesocolon on image 284 is stable in size measuring 3.2 x 2.7 cm containing fluid and air. There is an equivocal sinus tract extending towards the adjacent sigmoid. Tarlov cysts of the sacrum. No acute fracture. IMPRESSION: 1. Acute sigmoid diverticulitis redemonstrated with a stable contained perforation/abscess within the sigmoid mesocolon measuring 3.2 x 2.7 cm. There is an equivocal adjacent sinus tract extending towards the sigmoid colon. 2. Improved acute diverticulitis of the distal descending colon. 3. Cholelithiasis. 4. Left nephrolithiasis. 5. Additional findings as above. ACT 112: Negative or not required by law. The above report was generated using voice recognition software. It may contain grammatical, syntax or spelling errors. Electronically signed by: Rohit Gonsalez M.D. 12/20/2021 9:05 AM Medications Administered Current Inpatient Medications Acetaminophen (Acetaminophen 500 Mg Tab) 1,000 mg PO Q8H PRN PRN Reason: Pain Stop: 01/20/22 11:19 Last Admin: 12/21/21 20:52 Dose: 1,000 mg Amoxicillin/Clavulanate Potassium (Amoxicillin/Clavulanate 875 Mg Tab) 1 tab PO NOW ONE Stop: 12/22/21 13:24 Diphenhydramine HCl (Diphenhydramine 50 Mg/Ml Vial) 12.5 mg IV ONCE PRN PRN Reason: Allergic Reaction Stop: 01/21/22 10:30 Enoxaparin Sodium (Enoxaparin Inj 40 Mg/0.4 Ml Syr) 40 mg SQ [facility] Stop: 01/20/22 08:59 Last Admin: 12/22/21 08:44 Dose: 40 mg Felodipine (Felodipine 5 Mg Tabcr) 10 mg PO [facility] Stop: 01/19/22 08:59 Last Admin: 12/22/21 08:43 Dose: 10 mg Metronidazole (Flagyl) 500 mg in 100 mls @ 100 mls/hr IV Q8H [facility] Stop: 12/30/21 09:59 Last Infusion: 12/22/21 11:17 Dose: Infused Ceftriaxone Sodium 2,000 mg/ (Dextrose) 70 mls @ 140 mls/hr IV Q24H [facility] Stop: 12/31/21 00:00 Last Infusion: 12/22/21 02:50 Dose: Infused Indapamide (Indapamide 1.25 Mg Tab) 1.25 mg PO [facility] Stop: 01/19/22 08:59 Last Admin: 12/22/21 08:42 Dose: 1.25 mg Irbesartan (Irbesartan 150 Mg Tab) [facility] [place] Stop: 01/19/22 08:59 Last Admin: 12/22/21 08:42 Dose: 300 mg Labetalol HCl (Labetalol Hcl 100 Mg Tab) 100 mg PO BID [facility] Stop: 01/19/22 08:59 Last Admin: 12/22/21 08:41 Dose: 100 mg Lactobacillus Acidophilus (Advanced Probiotic 1250 Mg Capsule) 2 cap PO DAILY [facility] Stop: 01/20/22 08:59 Last Admin: 12/22/21 08:44 Dose: 2 cap Metoprolol Tartrate (Metoprolol Tartrate 50 Mg Tab) 50 mg PO BID JJ Stop: 01/19/22 08:59 Last Admin: 12/22/21 08:41 Dose: 50 mg Multivitamins/Minerals (Calcium 600mg + Vit D 400 Iu Tab) 1 tab PO PM JJ Stop: 01/19/22 20:59 Last Admin: 12/21/21 20:51 Dose: 1 tab Polyethylene Glycol (Polyethylene (Miralax) 17 Gm Pack) 17 gm PO DAILY PRN PRN Reason: Constipation Stop: 01/20/22 11:10 Simethicone (Simethicone 80 Mg Chew) 80 mg PO Q6H PRN PRN Reason: Gas or Constipation Stop: 01/19/22 14:43 Trazodone HCl (Trazodone Hcl 50 Mg Tab) 50 mg PO HS JJ Stop: 01/19/22 20:59 Last Admin: 12/21/21 21:07 Dose: 50 mg Vitamin D (Cholecalciferol 1,000 Units 25 Mcg Tab) 2,000 units PO QAM JJ Stop: 01/20/22 08:59 Last Admin: 12/22/21 08:43 Dose: 2,000 units Resident Activity Tracking Resident Involvement: Resident Care Provided Care Provided: Adult Hospital Medicine (1) Osteoarthritis of knees, bilateral Osteoarthritis type: primary Qualified Code(s): M17.0 - Bilateral primary osteoarthritis of knee (2) Abdominal pain Abdominal location: left lower quadrant Qualified Code(s): R10.32 - Left lower quadrant pain (3) HTN (hypertension) Hypertension type: essential hypertension Qualified Code(s): I10 - Essential (primary) hypertension
[2021-12-22] MEDS ORDERED: diphenhydrAMINE 50 MG/ML VIAL IV PRN (10:31)
[2021-12-22] MEDS ORDERED: AMOXICILLIN/CLAVULANATE 875 MG TAB PO ONE (13:23)
[2021-12-22 16:43] LABS: Adenovirus F 40/41 PCR Not Detected (NotDetected); Astrovirus PCR Not Detected (NotDetected); Campylobacter PCR Not Detected (NotDetected); Cryptosporidium PCR Not Detected (NotDetected); Cyclospora cayetanensis PCR Not Detected (NotDetected); Entamoeba histolytica PCR Not Detected (NotDetected); Enteroaggregative E.coli(EAEC) Not Detected (NotDetected); Enteropathogenic E.coli (EPEC) Not Detected (NotDetected); Enterotoxigenic E.coli (ETEC) Not Detected (NotDetected); Giardia lamblia PCR Not Detected (NotDetected); Norovirus GI/GII PCR Not Detected (NotDetected); Plesiomonas shigelloides PCR Not Detected (NotDetected); Rotavirus A PCR Not Detected (NotDetected); Salmonella PCR Not Detected (NotDetected); Sapovirus PCR Not Detected (NotDetected); Shiga-like Toxin E.coli (STEC) Not Detected (NotDetected); Shigella/Enteroinvasive E.coli Not Detected (NotDetected); Vibrio cholerae PCR Not Detected (NotDetected); Vibrio species PCR Not Detected (NotDetected); Yersinia enterocolitica PCR Not Detected (NotDetected)
[2021-12-22] MEDS: AMOXICILLIN/CLAVULANATE 875 MG TAB PO SCH (18:08)
[2021-12-22] MEDS: RASPBERRY SYRUP 5 ML UDP PO SCH (18:32)
[2021-12-22] MEDS: VANCOMYCIN HCL 125 MG/2.5ML SOLN PO SCH (18:32)
[2021-12-22 18:42] LABS: Cdiff Antigen Negative; Cdiff Toxin A+B Negative Cdiff Toxin (Negative)
[2021-12-22] MEDS: traZODone HCL 50 MG TAB PO SCH (20:46)
[2021-12-22] MEDS: CALCIUM 600MG + VIT D 400 IU TAB PO SCH (20:46)
[2021-12-23] MEDS: AMOXICILLIN/CLAVULANATE 875 MG TAB PO SCH ×3 (00:42→18:11)
[2021-12-23] MEDS: RASPBERRY SYRUP 5 ML UDP PO SCH ×2 (00:43→06:44)
[2021-12-23] MEDS: VANCOMYCIN HCL 125 MG/2.5ML SOLN PO SCH ×2 (00:43→06:44)
--- NOTE | 2021-12-23 06:35 | Surgery Progress Note ---
Date of Service December 23, 2021 Assessment & Plan (1) Diverticulitis: Plan: 12/23/21 she tells me she had colonoscopy about [address] Andre no polyps were identified and she was told she does not need one for about 10 years From my point of view the patient can be discharged we will continue on Augmentin for least another week Advised patient to keep a low fiber diet until her stools solidify then go to a high-fiber diet She should follow-up with Dr. Morales surgeon that had seen her first admission as was planned on first discharge From my point of view the patient can probably be discharged tomorrow on a low fiber diet Patient cannot take Cipro Flagyl consider giving Augmentin for another 10 days when discharged No need to follow-up with a CAT scan unless the clinical picture deteriorates She can follow-up with Dr. Morales as planned on her last admission Admission and Anticipated Discharge Date Admission Date: December 20, 2021 Subjective She had a good day yesterday had good solid meals her bowels had moved liquid but then starting to form No abdominal complaints no further pain She was started Augmentin yesterday Physical Exam Physical Exam: Awake alert without any complaints The abdomen is completely benign she may have just a touch of guarding in the left lower quadrant around anterior superior iliac crest Results & Data ([facility]) Vital Signs (Past 12 Hours) Vital Signs Temp Pulse Resp BP Pulse Ox O2 Del Method 12/22/21 23:36 36.4 C L 90 17 150/77 H 93 Room Air 12/22/21 20:44 90 153/83 H PG Care Time/CCT Total # of Minutes Spent Total Time Spent with Patient: Total time spent is greater than 50% in coordination of care (as documented) at patient's floor/unit and/or counseling patient: Coding Level of Care Code 47212 Subseq Hosp Care Lvl 3 Diagnoses Diverticulitis K57.92
--- NOTE | 2021-12-23 07:11 | Hospitalist Progress Note ---
Date of Service December 23, 2021 Assessment & Plan (1) Diverticulitis: Plan: 86yo female with a history of multiple episodes of diverticulitis, CKD3, HTN, mitral regurgitation, fibromyalgia, and knee OA presents with a two-day history of worsening abdominal pain, nausea, and poor appetite after recent hospitalization for acute complicated diverticulitis with contained perforation. Acute complicated sigmoid diverticulitis with contained perforation Recent hospital stay from 12/14 to 12/17 for acute complicated diverticulitis with contained perforation; initially, clinically improved while on intravenous ceftriaxone+metronidazole; however, symptoms worsened after patient returned home on oral cefdinir+metronidazole. Note this is expected as part of improving clinical course as patient resumes bowel movements. wbc 13.[address] abdomen/pelvis showing improving sigmoid diverticulitis with contained perforation, 3.4 x 2.6cm collection of fluid and gas; imaging relatively unchanged from prior CT (12/14) consult general surgery: continue medical management, advance diet to low fiber, consider PO abx 10 days Has recieved ceftriaxone IV, metronidazole IV 8 days total (out of total 14 days, took 1 day PO abx at home missed 2 days at home) Pain control: APAP PO 1000mg q8h PRN Lactate wnl, blood cultures no growth Trend daily CBC, electrolytes, renal function -Patient agreed to trial Augmentin 875mg, if tolerates well can go home on Augmentin 875 TID 10 days Prolonged QTc EKG on admission notable for QTc of 515 as well as sinus tachycardia, LVH, and widened QRS Caution with further QTc-prolonging meds Repleted potassium Hypokalemia - repleted Potassium on admission 3.2 Magnesium 1.8 Trend Diarrhea - C diff colitis Patient's first BM since hospitalization, possible relation to transition from IV to PO medication but unlikely C diff positive - start oral vanco Elevated troponin - downtrending On admission, hsTroponin minimally elevated to 16.6, downtrending EKG without evidence of acute ischemia, patient without CP Insomnia: home trazodone HTN: home regimen Systolic dysfunction, valvular disease: home regimen FEN: regular low fat low fiber diet Code status: DNR/DNI DVT ppx: SCDs Consults: general surgery Dispo: med/surg Surrogate decision maker in case of an emergency: Marii Landon ([phone]) (2) Elevated troponin: (3) HTN (hypertension): (4) Hypokalemia: (5) Moderate to severe mitral regurgitation: (6) Nausea: (7) Osteoarthritis of knees, bilateral: (8) Abdominal pain: (9) Chronic kidney disease, stage 3a: Admission and Anticipated Discharge Date Admission Date: December 20, 2021 Results & Data Results & Data ([facility]) Vital Signs (Past 12 Hours) Vital Signs Temp Pulse Resp BP Pulse Ox O2 Del Method 12/22/21 23:36 36.4 C L 90 17 150/77 H 93 Room Air 12/22/21 20:44 90 153/83 H (1) HTN (hypertension) Hypertension type: essential hypertension Qualified Code(s): I10 - Essential (primary) hypertension (2) Osteoarthritis of knees, bilateral Osteoarthritis type: primary Qualified Code(s): M17.0 - Bilateral primary osteoarthritis of knee (3) Abdominal pain Abdominal location: left lower quadrant Qualified Code(s): R10.32 - Left lower quadrant pain
[2021-12-23 08:30] LABS: Hematocrit (blood only) 36.3 % (34.1-44.9); Hemoglobin 12.2 g/dl (12.0-16.0); Mean Corpuscular Hemoglobin 29.8 pg (25.0-34.0); Mean Corpuscular Hgb Conc 33.6 g/dL (32.0-36.0); Mean Corpuscular Volume 88.5 fL (80.0-100.0); Mean Platelet Volume 9.6 fL (9.4-12.3); Platelet Count 294 K/uL (130-400); RDW Coefficient of Variation 15.4 % (11.5-14.5); RDW Standard Deviation 49.1 fL (36.4-46.3); White Blood Count 6.83 K/ul (4.8-10.8)
[2021-12-23 09:00] LABS: BUN Creatinine Ratio 11.5 (10-20); Calcium 9.1 mg/dl (8.5-10.1); Creatinine Clr Calc Pharmacy 45.9 ml/min; Est GFR (African American) 69.4 ml/min; Est GFR (Non-African American) 59.9 ml/min; Potassium 3.6 mmol/L (3.5-5.1)
[2021-12-23] MEDS: CHOLECALCIFEROL 1,000 UNITS 25 MCG TAB PO SCH (09:47)
[2021-12-23] MEDS: IRBESARTAN 150 MG TAB PO SCH (09:47)
[2021-12-23] MEDS: FELODIPINE 5 MG TABCR PO SCH (09:47)
[2021-12-23] MEDS: LABETALOL HCL 100 MG TAB PO SCH (09:47)
[2021-12-23] MEDS: ADVANCED PROBIOTIC 1250 MG CAPSULE PO SCH (09:47)
[2021-12-23] MEDS: INDAPAMIDE 1.25 MG TAB PO SCH (09:47)
[2021-12-23] MEDS: METOPROLOL TARTRATE 50 MG TAB PO SCH (09:47)
[2021-12-23] MEDS: ENOXAPARIN INJ 40 MG/0.4 ML SYR SQ SCH (09:53)
[2021-12-23] MEDS ORDERED: RASPBERRY SYRUP 5 ML UDP PO SCH (12:00)
[2021-12-23] MEDS ORDERED: VANCOMYCIN HCL 125 MG/2.5ML SOLN PO SCH (12:00)
--- NOTE | 2021-12-23 16:42 | Discharge Summary ---
Date of Service December 23, 2021 Admission HPI Per Admitting Provider 86yo female with a history of multiple episodes of diverticulitis, CKD3, HTN, mitral regurgitation, fibromyalgia, and knee OA presents with a two-day history of worsening abdominal pain since being discharged two days ago. Patient's recent admission earlier this week (from 12/14-12/17) was for diverticulitis with perforation. Patient originally presented to the ED on 11/22 (about a month ago) with lower abdominal pain which at that time was diagnosed as gastroenteritis; patient was not admitted at that time, and was discharged from the ED with dicyclomine. Patient's abdominal pain continued to worsen, which prompted her to return to the hospital on 12/14. Imaging at that time showed acute diverticulitis of the distal descending colon, proximal sigmoid colon, and mid-sigmoid colon with associated focal perforation/abscess adjacent to the mid-sigmoid colon measuring 3.1 x 2.8cm. Patient received a dose of cefoxitin IV before being transitioned to ceftriaxone IV and flagyl IV. General surgery was consulted and recommended medical management. Patient's symptoms improved with IV antibiotics, and on hospital day four, her IV antibiotic regimen was converted to oral cefdinir and oral metronidazole. Patient was discharged the same day, and she was to continue oral cefdinir/metronidazole for twelve days. However, upon returning home, patient's abdominal pain returned and progressively worsened, prompting her to return to the ED today. Patient also endorses diarrhea that began after starting oral antibiotics. Also endorses nausea without vomiting. Patient denies fever, CP, SOB, palpitations, or other symptoms. Of note, patient reports a history of five prior GI surgeries for diverticulitis. Surrogate decision maker in case of an emergency: Marii Landon ([phone]) Admission Exam Per Admitting Provider Constitutional: tired-appearing, no acute distress HEENT: NCAT, no conjunctival injection, no scleral icterus CV: heart sounds distant, extremities well-perfused, no LE edema Resp: CTABL, no wheezes/rales/rhonchi appreciated, no increased work of breathing GI: soft, severe tenderness of the LLQ, moderate tenderness of RUQ, LUQ, and RLQ, no rebound or guarding, BS hypoactive MSK: no gross deformities appreciated Neuro: alert, oriented, no focal neurologic deficit appreciated Principal Diagnosis Divericulitis Discharge Exam Constitutional: WD/WN, vitals as above Eyes: PERRL, conjunctivae normal, anicteric sclerae ENMT: external ear and nose normal, oropharynx normal Neck: trachea midline, no thyromegaly Respiratory: normal respiratory effort, lungs clear to auscultation Cardiovascular: RRR, no murmur, no edema B Chest (Breasts): Chest: normal inspection of chest Gastrointestinal (Abdomen): Inspection/Auscultation: abdomen normal to inspection Percussion/Palpation: abdomen mildly tender and abdomen soft Skin: no rashes, warm and dry Discharge Data Allergies Allergy/AdvReac Type Severity Reaction Status Date / Time ciprofloxacin AdvReac Severe "MADE ME Unverified 12/19/21 21:02 DEATHLY ILL" lisinopril AdvReac Intermediate Weakness Verified 12/19/21 21:02 Consultations 12/20/21 01:09 ED Decision to Admit Stat 12/20/21 03:37 Consult General Surgery Routine Ordered Studies 12/19/21 20:41 CT abd pelvis wo con Urgent Hospital Course (1) Diverticulitis: 86yo female with a history of multiple episodes of diverticulitis, CKD3, HTN, mitral regurgitation, fibromyalgia, and knee OA presents with a two-day history of worsening abdominal pain, nausea, and poor appetite after recent hospitalization for acute complicated diverticulitis with contained perforation. -Patient home on Augmentin TID 875mg 9 days. Acute complicated sigmoid diverticulitis with contained perforation Recent hospital stay from 12/14 to 12/17 for acute complicated diverticulitis with contained perforation; initially, clinically improved while on intravenous ceftriaxone+metronidazole; however, symptoms worsened after patient returned home on oral cefdinir+metronidazole. Note this is expected as part of improving clinical course as patient resumes bowel movements. Wbc 13.[address] abdomen/pelvis showing improving sigmoid diverticulitis with contained perforation, 3.4 x 2.6cm collection of fluid and gas; imaging relatively unchanged from prior CT (12/14). Consulted general surgery: continue medical management, advance diet to low fiber, consider PO abx 10 days. Has recieved ceftriaxone IV, metronidazole IV 8 days total (out of total 14 days, took 1 day PO abx at home missed 2 days at home). Lactate wnl, blood cultures no growth. Patient on Augmentin 875 TID 10 days tolerated well no allergic reaction. Prolonged QTc EKG on admission notable for QTc of 515 as well as sinus tachycardia, LVH, and widened QRS. Caution with further QTc-prolonging meds. Repleted potassium Should have outpatient follow up Hypokalemia - repleted Potassium on admission 3.2. Magnesium 1.8 Diarrhea Resolved. C diff positive gene tox neg. No need to treat. Elevated troponin - downtrending On admission, hsTroponin minimally elevated to 16.6, downtrending. EKG without evidence of acute ischemia, patient without CP Insomnia: home trazodone HTN: home regimen Systolic dysfunction, valvular disease: home regimen (2) Elevated troponin: (3) HTN (hypertension): (4) Moderate to severe mitral regurgitation: (5) Nausea: (6) Osteoarthritis of knees, bilateral: (7) Abdominal pain: (8) Chronic kidney disease, stage 3a: Total Time Total Time Spent Total Time Spent (In Minutes): see attending attestation Discharge Plan Discharge Items Patient Disposition: Home - Self-Care Reason For Visit: SEPSIS 2/2 ACUTE COMPLICATED DIVERTICULITIS W PERF Discharge Diagnosis: Divericulitis Activity: Resume your previous activity Non-emergency contact: Primary Care Provider Call non-emergency contact if: you have any medication questions, your symptoms worsen, your pain is concerning for you and you have a fever Follow-up/Referrals: Saroj Morales MD [Physician] - (Please call to schedule follow up in the office with the surgeon in a couple of weeks) Tracie Rush DO [Primary Care Provider] - Diet: Low Fiber Addtl Attending Provider Instructions: You were admitted to the hospital for Diverticulitis. You were treated with antibiotics, and your symptoms have improved. We have trialed you on the antibiotic Augmentin in the hospital, which you tolerated well. You do not have a penicillin allergy. We will send you home on Augmentin three times a day for the next 9 days. During this time please continue to eat a low fiber diet. You may take up to 2000mg total of ibuprofen daily for any associated abdominal pain with food, as well as 2000mg total of tylenol. Please follow up with your PCP. While in the hospital, you were found to have the bacteria C. Difficile, that did not produce any toxins that could lead to diarrhea. However, if in the future you develop profuse watery diarrhea, please let your provider know that you have a history of toxin negative C. Difficile. Please continue to take your probiotics to encourage gut health. After your diverticulitis has resolved, we recommend that you eat foods high in fiber to avoid constipation. We will include a list of foods below A discharge summary will be sent to your primary care physician to ensure continuity of care. Please bring this discharge summary with you to your next office appointment so that your provider can review it at that time. Follow-up appointments: Make a follow-up appointment with your PCP within the next week. It is very important that you follow up with them shortly after discharge from the hospital. Keep all your follow-up appointments as already scheduled. If you cannot make an appointment, notify your provider. Medications: Your medication list has been reviewed and reconciled upon discharge to ensure accuracy and continuity of care. An updated list of all your medications is included with your hospital discharge paperwork. Please review this list closely, and make note of any changes. * We sent a new medication called Augmentin to your pharmacy. Take Augmentin 875mg one tablet three times a day for 9 days. Take your medications as instructed; do not skip a dose of your medicines. Make sure all of your doctors know every medicine you are taking (including xpuv-ugc-vejuqvl medicines, vitamins, and supplements). Call your primary care provider before taking any new medicines (including iuji-ois-jycieqj medicines, vitamins, and supplements), because some of these may interact with your current medications, or may make your symptoms worse. Tell your primary care provider if you cannot afford your medications. CONTACT YOUR PRIMARY CARE PROVIDER if you experience any of the following: Fever, chills, difficulty breathing Increased weakness or lethargy Difficulty following your treatment plan, or difficulty taking medications CALL 911 OR GO TO THE EMERGENCY DEPARTMENT if you experience any of the following: Sudden, severe abdominal pain or nausea/vomiting Severe chest pain, or chest pain that radiates (moves) to your jaw or arm Sudden, severe shortness of breath or difficulty breathing Thank you for allowing us to participate in your care. Pending Studies at Discharge: No Stand-Alone Forms: [employer], Smoking Cessation Medications and DC Order Prescriptions: New amoxicillin-pot clavulanate 875-125 mg Tablet 1 tab PO Q8H 9 Days Qty: 27 0RF Continued metoprolol tartrate 50 mg tablet 50 mg PO BID Qty: 180 3RF labetalol 100 mg tablet 100 mg PO BID Qty: 180 3RF Rx Instructions: TAKEN IN ADDITION TO REDUCED DOSE METOPROLOL trazodone 50 mg tablet 50 mg PO HS indapamide 1.25 mg tablet 1.25 mg PO QAM felodipine 10 mg tablet extended release 24 hr 10 mg PO QAM irbesartan 300 mg Tablet 300 mg PO QAM cholecalciferol (vitamin D3) [Vitamin D3] 2,000 unit Tablet 2,000 unit PO QAM Caltrate 600 plus D 600 mg (1,500 mg)-800 unit Tablet,Chewable 1 tab PO PM acetaminophen 650 mg Tablet Extended Release 650 - 1,300 mg PO Q12H PRN (Reason: Pain) Probiotic 3 billion cell Capsule 0 mmu cells PO DAILY Discontinued cefdinir 300 mg Capsule 300 mg PO BID 12 Days Qty: 24 0RF metronidazole 500 mg Tablet 500 mg PO Q8H 12 Days Qty: 36 0RF Discharge Orders: Discharge Order (Routine); Ordered 12/23/21 Ordered By: Tahira Yates/Other Patient Handouts: Low-Fiber Diet Admission Data Admit Date/Time: 12/20/21 02:31 Attending Provider: Mackenzie Caldera Admit Provider: Lobo Del Rosario Primary Care Provider: Tracie Rush Other Providers: Josesito Lo ; Juan J Dickerson ; Vincent Mancera ; Cj Yan ; Varun Cruz Jr ; Roberto Whitaker ; Kwesi Light ; Minal Aguirre ; Aroldo Ye ; Salty Bradshaw ; Wander Vick Other Interventions: Discharge Summary Assessment (RN) Last Done: 12/23/21 17:44 Supervising Physician Co-Signing Physician Notes Resident Physician Supervision Note: I independently interviewed and examined the patient and verified the bravo hi story and physical, reviewed labs and image studies and agree with resident Dr. Lugo findings and care plan. Resident Activity Tracking Resident Involvement: Resident Care Provided Care Provided: Adult Hospital Medicine
== END 2021-12-23 18:54 | disposition home or self-care (01) ==
LOC: ED 20:34 → INTOOBSV 12-20 02:31 → EDINP 12-20 03:32 → SUATTDRO 12-20 03:32 → 3N 12-20 03:49
DX: Z88.0 Allergy status to penicillin; Z88.1 Allergy status to other antibiotic agents; Z66 Do not resuscitate; E87.6 Hypokalemia; Z79.899 Other long term (current) drug therapy; Z88.8 Allergy status to other drugs, medicaments and biological substances; M17.0 Bilateral primary osteoarthritis of knee; R19.7 Diarrhea, unspecified; K57.20 Diverticulitis of large intestine with perforation and abscess without bleeding; R94.31 Abnormal electrocardiogram [ECG] [EKG]; I10 Essential (primary) hypertension; R77.8 Other specified abnormalities of plasma proteins

== ENCOUNTER 2022-01-26 08:52 | Observation (INO) ==
--- NOTE | 2022-01-26 09:09 | Emergency Department Note ---
Impression & Plan Diverticulitis, Abdominal pain, Abdominal abscess ED Provider Note NAME: MANNIE CAMARENA AGE: 86 SEX: F : 1935 ARRIVES VIA: Walk-In INFORMANT: Patient ED PROVIDER(S): Wander Sánchez DO CHIEF COMPLAINT: abdominal pain HPI: Patient is an 86-year-old female with a past medical history of hypertension, fibromyalgia, cardiomyopathy, aortic regurg and diverticulosis who presents to the ER for initially right lower quadrant abdominal pain. Notes the symptoms started last night. Her normal diverticulitis normally starts in the right lower quadrant. This radiates over to the left lower quadrant and is now diffuse. It is a 3 out of 10 at baseline when she is up moving around to 7-8 out of 10. She describes the pain as sharp. Has some nausea. No vomiting. No dysuria urgency or frequency. Normal bowel movements which are little softer than usual but not diarrhea. Has had 3 episodes of diverticulitis back in November. Last finished antibiotics at the end of November. ROS: See above HPI for pertinent positives & negatives. A total of 10 systems reviewed and were otherwise negative. PAST MEDICAL HISTORY:See Below PAST SURGICAL HISTORY:See Below FAMILY HISTORY:See Below SOCIAL HISTORY:See Below HOME MEDICATIONS:See Below ALLERGIES:See Below VITALS:See Below PHYSICAL EXAMINATION: GENERAL: Sitting up in bed, alert, well appearing, well nourished, no distress, non-toxic EYE EXAM: normal conjunctiva. OROPHARYNX: no exudate, no erythema, lips, buccal mucosa, and tongue normal and mucous membranes are moist NECK: supple, no nuchal rigidity, no adenopathy, non-tender LUNGS: Clear to auscultation. Normal chest wall mechanics HEART: no murmurs, S1 normal and S2 normal ABDOMEN: abdomen soft, TTP in b/l lower abd, normo-active bowel sounds, no m asses, no rebound or guarding. UPPER EXTREMITIES: upper extremities are grossly normal. LOWER EXTREMITIES: No pitting edema. NEURO EXAM: Normal sensorium, cranial nerves II-XII grossly intact, normal speech, no gross weakness of arms, no gross weakness of legs. MEDICAL DECISION MAKING: Patient is an 86-year-old female who presents the ER for abdominal pain. IV was established blood work is obtained. Labs show no significant leukocytosis or anemia. BMP on LFTs was fairly unremarkable. Calcium was mildly up at 10.3. Bilirubin was normal. Lipase 10. BMP was contaminated. No white cells suggest UTI. COVID was negative. CT abdomen pelvis confirms diverticulitis with improving phlegmon/abscess. Patient declined pain medications. She was discussed with hospitalist admitted for further work-up after discussion with surgery. Triage Nursing notes reviewed. Limited review of prior medical records performed Vital Signs: reviewed and remarkable for HTN Differential diagnosis: Differential diagnoses includes but is not limited to gastritis, peptic ulcer disease, GERD, gallbladder disease, pancreatitis, small bowel obstruction, acute coronary syndrome, pericarditis, ischemic bowel, irritable bowel disease, irritable bowel syndrome, appendicitis, diverticulitis, malignancy, hernia, urinary tract infection, torsion, [/ectopic (if female)], perforation, trauma, infectious. ER treatment provided: See below Diagnostics interpreted by me: ECG: Sinus rhythm rate 81 Left axis PACs QTC 400 Cardiac Monitoring: An order was placed for continuous cardiac monitoring. The monitor shows a rate of 82 with sinus rhythm. Laboratory studies: As stated above and show below. Imaging studies: CT abdomen pelvis as described above Consultation(s): Patient was seen and evaluated by Minal Díaz from general surgery who recommended admission to medicine. Discussed with keshav Pearson for further evaluation Procedures: none Critical Care: None Past Med/Surg History Medical History (Updated 01/26/22 @ 15:16 by Wander Sánchez DO) Abdominal pain Abdominal pain Abdominal pain, LLQ (left lower quadrant) Cardiomyopathy Chronic kidney disease, stage 3a Diverticulitis Diverticulitis Diverticulitis Diverticulitis Diverticulitis of intestine with abscess without bleeding Elevated troponin Fibromyalgia HTN (hypertension) Hypokalemia Hypokalemia Hypomagnesemia Hyponatremia Small bowel obstruction Valvular heart disease Surgical History H/O exploratory laparotomy SBO in . 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 Required: No Beliefs That Will Affect Care: None marital status: / Current Living Situation: Alone Current Living Situation Comment: Pt lives alone in [facility] How many Children do You have: 1 Feels Safe at Home: Yes Assistive Devices: Walker Allergies Allergies Allergy/AdvReac Type Severity Reaction Status Date / Time ciprofloxacin AdvReac Severe "MADE ME Unverified 12/19/21 21:02 DEATHLY ILL" lisinopril AdvReac Intermediate Weakness Verified 12/19/21 21:02 Home Meds Home Medications Medication Instructions Recorded Confirmed calcium carbonate 600 mg-vitamin 1 tab PO PM 08/04/18 12/19/21 D3 20 mcg (800 unit) chewable tablet (Caltrate 600 plus D) cholecalciferol (vitamin D3) 50 2,000 unit PO QAM 08/04/18 12/19/21 mcg (2,000 unit) tablet (Vitamin D3) felodipine 10 mg tablet,extended 10 mg PO QAM 08/04/18 12/19/21 release 24 hr indapamide 1.25 mg tablet 1.25 mg PO QAM 08/04/18 12/19/21 irbesartan 300 mg tablet 300 mg PO QAM 08/04/18 12/19/21 trazodone 50 mg tablet 50 mg PO HS 08/04/18 12/19/21 acetaminophen 650 mg 650 - 1,300 mg PO Q12H PRN Pain 02/18/21 12/19/21 tablet,extended release lactobacillus combination no.4 3 0 mmu cells PO DAILY 02/18/21 12/19/21 billion cell capsule (Probiotic) Previous Rx's Medication Instructions Recorded labetalol 100 mg tablet 100 mg PO BID #180 tabs 10/20/21 metoprolol tartrate 50 mg tablet 50 mg PO BID #180 tabs 10/20/21 Results & Data (ED) Vital Signs Vital Signs - 24 hr 01/26/22 08:55 01/26/22 08:52 01/26/22 08:58 Temperature 36.6 C Temperature Source Temporal Artery Scan Pulse Rate 89 77 Pulse Rate [Apical] 77 Pulse Rhythm Regular Regular Pulse Rhythm [Apical] Regular Pulse Strength Normal Pulse Strength [Apical] Normal Respiratory Rate 20 18 18 Respiratory Effort / Characteristics Non-Labored Spontaneous Non-Labored Respiratory Depth Normal Normal Respiratory Pattern Regular Regular Blood Pressure 141/87 H Blood Pressure [Left Arm] 150/89 H Blood Pressure Mean 105 Blood Pressure Mean [Left Arm] 109 Blood Pressure Position Sitting Blood Pressure Position [Left Arm] Lying Pulse Oximetry 93 98 98 Oxygen Delivery Method Room Air Room Air Room Air Sepsis Recent Fever Within 48 Hours No Sepsis New/Unexplained Change in Mental Status No Sepsis Action Taken by Nursing No Action Required Laboratory Data Result diagrams: 01/26/22 09:15 01/26/22 09:15 Lab Results 01/26/22 01/26/22 01/26/22 Range/Units 09:15 09:15 09:15 WBC 6.37 (4.8-10.8) K/ul RBC 4.42 (3.93-5.22) M/uL Hgb 13.0 (12.0-16.0) g/dl POC Hgb (12.0-16.0) g/dl Hct 39.5 (34.1-44.9) % POC Hct (37-47) % MCV 89.4 (80.0-100.0) fL MCH 29.4 (25.0-34.0) pg MCHC 32.9 (32.0-36.0) g/dL RDW Std Deviation 49.1 H (36.4-46.3) fL RDW Coeff of Mari 14.9 H (11.5-14.5) % Plt Count 277 (130-400) K/uL MPV 10.0 (9.4-12.3) fL Immature Gran % (Auto) 0.2 % Neut % (Auto) 64.5 % Lymph % (Auto) 20.1 % Barren % (Auto) 10.0 % Eos % (Auto) 4.4 % Baso % (Auto) 0.8 % Neut # (Auto) 4.11 (1.4-6.5) K/uL Lymph # (Auto) 1.28 (1.2-3.4) K/uL Barren # (Auto) 0.64 (0.24-0.82) K/uL Eos # (Auto) 0.28 (0-0.50) K/uL Baso # (Auto) 0.05 (0-0.2) K/uL Immature Gran # (Auto) 0.01 (0.00-0.02) K/uL POC Sodium (135-144) mmol/L Sodium 140 (136-145) mmol/L POC Potassium (3.3-5.0) mmol/L Potassium 3.8 (3.5-5.1) mmol/L POC Chloride (101-112) mmol/L Chloride 102 (98-107) mmol/L Carbon Dioxide 28 (21-32) mmol/L POC Total CO2 (24-31) mmol/L Anion Gap 10 (3-11) POC Anion Gap (16-25) mmol/L POC BUN (7-18) mg/dl BUN 24 H (6-23) mg/dl Creatinine 0.89 (0.6-1.2) mg/dl POC Creatinine (0.6-1.3) mg/dl Est Cr Clr Drug Dosing 40.0 ml/min Est GFR ( Amer) 67.5 ml/min Est GFR (Non-Af Amer) 58.3 ml/min BUN/Creatinine Ratio 27.0 H (10-20) Glucose 113 H (70-99(Fasting)) mg/dl POC Glucose (other) (70-99) mg/dl Calcium 10.3 H (8.5-10.1) mg/dl POC Ioniz Calcium Lauri (1.12-1.32) mmol/l Total Bilirubin 0.9 (0.2-1.0) mg/dl AST 16 (13-39) U/L ALT 14 (7-52) U/L Alkaline Phosphatase 71 (34-104) U/L Total Protein 6.8 (6.0-8.3) gm/dl Albumin 4.1 (3.4-5.0) gm/dl Globulin 2.7 (2.5-4.0) gm/dl Albumin/Globulin Ratio 1.5 (0.9-2) Lipase 10 L (11-82) U/L Vitamin B12 (180-914) pg/ml Urine Color Yellow Urine Appearance Clear (Clear) Urine pH 5.5 (4.5-7.5) Ur Specific [place] 1.018 (1.000-1.030) Urine Protein 1+ H (Negative) Urine Glucose (UA) Negative (Negative) Urine Ketones Negative (Negative) Urine Blood 1+ H (Negative) Urine Nitrite Negative (Negative) Urine Bilirubin Negative (Negative) Urine Urobilinogen Negative (Negative) Ur Leukocyte Esterase Trace H (Negative) Urine WBC (Auto) 1-5 (0-5) /hpf Urine RBC (Auto) 5-10 H (0-4) /hpf U Hyaline Cast (Auto) 1-5 (0-5) /lpf U Epithel Cells (Auto) 10-20 H (0-5) /lpf Urine Bacteria (Auto) Negative (Negative) 01/26/22 01/26/22 Range/Units 09:15 09:32 WBC (4.8-10.8) K/ul RBC (3.93-5.22) M/uL Hgb (12.0-16.0) g/dl POC Hgb 13.6 (12.0-16.0) g/dl Hct (34.1-44.9) % POC Hct 40 (37-47) % MCV (80.0-100.0) fL MCH (25.0-34.0) pg MCHC (32.0-36.0) g/dL RDW Std Deviation (36.4-46.3) fL RDW Coeff of Mari (11.5-14.5) % Plt Count (130-400) K/uL MPV (9.4-12.3) fL Immature Gran % (Auto) % Neut % (Auto) % Lymph % (Auto) % Barren % (Auto) % Eos % (Auto) % Baso % (Auto) % Neut # (Auto) (1.4-6.5) K/uL Lymph # (Auto) (1.2-3.4) K/uL Barren # (Auto) (0.24-0.82) K/uL Eos # (Auto) (0-0.50) K/uL Baso # (Auto) (0-0.2) K/uL Immature Gran # (Auto) (0.00-0.02) K/uL POC Sodium 140 (135-144) mmol/L Sodium (136-145) mmol/L POC Potassium 3.4 (3.3-5.0) mmol/L Potassium (3.5-5.1) mmol/L POC Chloride 100 L (101-112) mmol/L Chloride (98-107) mmol/L Carbon Dioxide (21-32) mmol/L POC Total CO2 28 (24-31) mmol/L Anion Gap (3-11) POC Anion Gap 16.0 (16-25) mmol/L POC BUN 23 H (7-18) mg/dl BUN (6-23) mg/dl Creatinine (0.6-1.2) mg/dl POC Creatinine 0.9 (0.6-1.3) mg/dl Est Cr Clr Drug Dosing ml/min Est GFR ( Amer) ml/min Est GFR (Non-Af Amer) ml/min BUN/Creatinine Ratio (10-20) Glucose (70-99(Fasting)) mg/dl POC Glucose (other) 118 H (70-99) mg/dl Calcium (8.5-10.1) mg/dl POC Ioniz Calcium Lauri 1.28 (1.12-1.32) mmol/l Total Bilirubin (0.2-1.0) mg/dl AST (13-39) U/L ALT (7-52) U/L Alkaline Phosphatase (34-104) U/L Total Protein (6.0-8.3) gm/dl Albumin (3.4-5.0) gm/dl Globulin (2.5-4.0) gm/dl Albumin/Globulin Ratio (0.9-2) Lipase (11-82) U/L Vitamin B12 167 L (180-914) pg/ml Urine Color Urine Appearance (Clear) Urine pH (4.5-7.5) Ur Specific [place] (1.000-1.030) Urine Protein (Negative) Urine Glucose (UA) (Negative) Urine Ketones (Negative) Urine Blood (Negative) Urine Nitrite (Negative) Urine Bilirubin (Negative) Urine Urobilinogen (Negative) Ur Leukocyte Esterase (Negative) Urine WBC (Auto) (0-5) /hpf Urine RBC (Auto) (0-4) /hpf U Hyaline Cast (Auto) (0-5) /lpf U Epithel Cells (Auto) (0-5) /lpf Urine Bacteria (Auto) (Negative) Administered Medications Discontinued Medications Ceftriaxone Sodium (Rocephin) 1,000 mg in 50 mls @ 100 mls/hr IV 1300 ONE Stop: 01/26/22 13:29 Last Infusion: 01/26/22 13:39 Dose: 0 mls/hr Documented By: Admin: 01/26/22 13:07 Dose: 100 mls/hr Documented By: Metronidazole (Flagyl) 500 mg in 100 mls @ 100 mls/hr IV 1300 ONE Stop: 01/26/22 13:59 Last Admin: 01/26/22 13:46 Dose: 100 mls/hr Documented By: PAIGE Ioversol (Optiray 300 500ml) 94 ml IV ONCE ONE Stop: 01/26/22 10:00 Last Admin: 01/26/22 10:00 Dose: 94 ml Documented By: GIL Imaging Data Radiologist's Impression: Abdomen/Pelvis CT 01/26/22 08:57 CT SCAN OF THE ABDOMEN AND PELVIS WITH IV CONTRAST CLINICAL HISTORY: Left lower quadrant abdominal pain. COMPARISON STUDY: Abdominal CT dated 12/19/2021. TECHNIQUE: Following the IV administration of 94 cc of Optiray 300, CT scan of the abdomen and pelvis is performed from the lung bases to the proximal femora. Images are reviewed in the axial, sagittal, and coronal planes. IV contrast was administered without complication. A dose lowering technique was utilized adhering to the principles of ALARA. CT DOSE: 410.73 mGy.cm FINDINGS: Lung bases: The heart is enlarged and without pericardial effusion. The lung bases are clear noting bibasilar scarring/atelectasis. There are small bilateral fat-containing Bochdalek hernia is. Liver: The contrast-enhanced liver is normal in size, contour, and attenuation. There is no intrahepatic biliary ductal dilatation. The hepatic veins and portal veins are patent. There are calcified hepatic granulomas. Gallbladder: There are tiny calcified gallstones without CT evidence of acute cholecystitis. Spleen: Normal in size and attenuation. Pancreas: Atrophic and grossly unremarkable. Adrenal glands: Unremarkable. Kidneys: The contrast enhanced kidneys demonstrate mild cortical atrophy and are without hydronephrosis. The kidneys enhance symmetrically. Abdominal vasculature: The abdominal aorta is normal in course and caliber noting moderate to advanced atherosclerotic calcification. Bowel: There is rectosigmoid fecal impaction and moderate constipation. There is perirectal infiltration and trace fluid. No bowel obstruction is seen. The appendix is not identified and reported surgically absent. There is advanced colonic diverticulosis. Again seen is a 2.6 cm soft tissue density structure/phlegmon between loops of the rectosigmoid colon. When correlated with prior examinations this likely represents a resolving abscess with possible colorectal fistula. There is mild surrounding infiltration, similar to previous. No new areas of diverticulitis are seen on today's examination. Peritoneum: There is no intraperitoneal free air or abdominal ascites. Lymphadenopathy: None. Pelvic viscera: The bladder and uterus are normal as visualized. A 3.2 cm simple cystic structure is again seen in the right ovary on image #330. There are bilateral fat-containing groin hernias. Skeletal structures: The skeletal structures are osteopenic. There is mild l umbosacral spondylosis. Tarlov cysts are incidentally noted in the sacrum. No lytic or blastic lesions are seen. IMPRESSION: 1. Again seen is the sequelae of perforated diverticulitis involving the rectosigmoid colon with mild surrounding infiltration. Inflammatory change has modestly improved as compared to 12/19/2021. 2. There is an irregular 2.6 cm soft tissue attenuation structure/phlegmon between the sigmoid colon and the rectum at the site of a previously characterized abscess. There is no significant fluid within this structure on today's examination. A colorectal fistula is not excluded. 3. There is rectosigmoid fecal impaction and moderate constipation. 4. Trace free fluid in the pelvis is likely reactive. 5. Advanced colonic diverticulosis. No new foci of diverticulitis are seen on today's examination. 6. Cholelithiasis. 7. Cardiomegaly. 8. Additional findings as above. ACT 112: Negative or not required by law. Electronically signed by: Kris Douglass M.D. 01/26/2022 10:24 AM Discharge Plan Visit Data Chief Complaint: Abdominal Pain Stated Complaint: ABDOMINAL PAIN ED Provider: Wander Sánchez Discharge Problem: Diverticulitis, Abdominal pain, Abdominal abscess Patient Disposition: Admitted As Inpatient Discharge Instructions Interventions: ED Discharge Assessment Last Done: 01/26/22 14:14
[2022-01-26 09:43] LABS: Basophils # (auto) 0.05 K/uL (0-0.2); Basophils % (auto) 0.8 %; Eosinophils # (auto) 0.28 K/uL (0-0.50); Eosinophils % (auto) 4.4 %; Hematocrit (blood only) 39.5 % (34.1-44.9); Immature Granulocytes # (auto) 0.01 K/uL (0.00-0.02); Immature Granulocytes % (auto) 0.2 %; Lymphocytes # (auto) 1.28 K/uL (1.2-3.4); Lymphocytes % (auto) 20.1 %; Mean Corpuscular Hemoglobin 29.4 pg (25.0-34.0); Mean Corpuscular Hgb Conc 32.9 g/dL (32.0-36.0); Mean Corpuscular Volume 89.4 fL (80.0-100.0); Monocytes # (auto) 0.64 K/uL (0.24-0.82); Neutrophils # (auto) 4.11 K/uL (1.4-6.5); Neutrophils % (auto) 64.5 %; Platelet Count 277 K/uL (130-400); RDW Coefficient of Variation 14.9 % (11.5-14.5); RDW Standard Deviation 49.1 fL (36.4-46.3); Red Blood Count 4.42 M/uL (3.93-5.22); White Blood Count 6.37 K/ul (4.8-10.8)
[2022-01-26 09:44] LABS: iSTAT Creatinine 0.9 mg/dl (0.6-1.3); iSTAT Hemoglobin 13.6 g/dl (12.0-16.0); iSTAT Ionized Calcium 1.28 mmol/l (1.12-1.32); iSTAT Potassium 3.4 mmol/L (3.3-5.0)
[2022-01-26 09:47] LABS: Appearance Urine Clear (Clear); Bacteria Urine Automated Negative (Negative); Bilirubin Urine Negative (Negative); Blood Urine 1+ (Negative); Color Urine Yellow; Glucose Urine UA Negative (Negative); Ketones Urine Negative (Negative); Leukocyte Esterase Urine Trace (Negative); Nitrite Urine Negative (Negative); Protein Urine 1+ (Negative); Specific Gravity Urine 1.018 (1.000-1.030); Urobilinogen Urine Negative (Negative); pH Urine 5.5 (4.5-7.5)
[2022-01-26] MEDS ORDERED: OPTIRAY 300 500mL IV ONE (09:59)
[2022-01-26 10:22] LABS: Albumin Globulin Ratio 1.5 (0.9-2); Albumin Level 4.1 gm/dl (3.4-5.0); Bilirubin,Total 0.9 mg/dl (0.2-1.0); Calcium 10.3 mg/dl (8.5-10.1); Est GFR (African American) 67.5 ml/min; Est GFR (Non-African American) 58.3 ml/min; Globulin 2.7 gm/dl (2.5-4.0); Potassium 3.8 mmol/L (3.5-5.1); Total Protein 6.8 gm/dl (6.0-8.3)
--- NOTE | 2022-01-26 10:25 | CT Scan Report ---
CT SCAN OF THE ABDOMEN AND PELVIS WITH IV CONTRAST CLINICAL HISTORY: Left lower quadrant abdominal pain. COMPARISON STUDY: Abdominal CT dated 12/19/2021. TECHNIQUE: Following the IV administration of 94 cc of Optiray 300, CT scan of the abdomen and pelvi s is performed from the lung bases to the proximal femora. Images are reviewed in the axial, sagittal , and coronal planes. IV contrast was administered without complication. A dose lowering technique wa s utilized adhering to the principles of ALARA. CT DOSE: 410.73 mGy.cm FINDINGS: Lung bases: The heart is enlarged and without pericardial effusion. The lung bases are clear noting b ibasilar scarring/atelectasis. There are small bilateral fat-containing Bochdalek hernia is. Liver: The contrast-enhanced liver is normal in size, contour, and attenuation. There is no intrahepa tic biliary ductal dilatation. The hepatic veins and portal veins are patent. There are calcified hep atic granulomas. Gallbladder: There are tiny calcified gallstones without CT evidence of acute cholecystitis. Spleen: Normal in size and attenuation. Pancreas: Atrophic and grossly unremarkable. Adrenal glands: Unremarkable. Kidneys: The contrast enhanced kidneys demonstrate mild cortical atrophy and are without hydronephros is. The kidneys enhance symmetrically. Abdominal vasculature: The abdominal aorta is normal in course and caliber noting moderate to advance d atherosclerotic calcification. Bowel: There is rectosigmoid fecal impaction and moderate constipation. There is perirectal infiltrat ion and trace fluid. No bowel obstruction is seen. The appendix is not identified and reported surgi gely absent. There is advanced colonic diverticulosis. Again seen is a 2.6 cm soft tissue density st ructure/phlegmon between loops of the rectosigmoid colon. When correlated with prior examinations thi s likely represents a resolving abscess with possible colorectal fistula. There is mild surrounding i nfiltration, similar to previous. No new areas of diverticulitis are seen on today's examination. Peritoneum: There is no intraperitoneal free air or abdominal ascites. Lymphadenopathy: None. Pelvic viscera: The bladder and uterus are normal as visualized. A 3.2 cm simple cystic structure is again seen in the right ovary on image #330. There are bilateral fat-containing groin hernias. Skeletal structures: The skeletal structures are osteopenic. There is mild lumbosacral spondylosis. Tarlov cysts are incidentally noted in the sacrum. No lytic or blastic lesions are seen. IMPRESSION: 1. Again seen is the sequelae of perforated diverticulitis involving the rectosigmoid colon with mild surrounding infiltration. Inflammatory change has modestly improved as compared to 12/19/2021. 2. There is an irregular 2.6 cm soft tissue attenuation structure/phlegmon between the sigmoid colon and the rectum at the site of a previously characterized abscess. There is no significant fluid withi n this structure on today's examination. A colorectal fistula is not excluded. 3. There is rectosigmoid fecal impaction and moderate constipation. 4. Trace free fluid in the pelvis is likely reactive. 5. Advanced colonic diverticulosis. No new foci of diverticulitis are seen on today's examination. 6. Cholelithiasis. 7. Cardiomegaly. 8. Additional findings as above. ACT 112: Negative or not required by law. Electronically signed by: Kris Douglass M.D. 01/26/2022 10:24 AM
--- NOTE | 2022-01-26 11:16 | History & Physical Report ---
Date of Service January 26, 2022 Assessment & Plan (1) Sigmoid diverticulitis: Plan: - Patient with recurrent diverticulitis and 2 admissions within the past month, presents with worsening abdominal pain over the past 24 hours. - CT A/P shows sequelae of perforated diverticulitis involving the rectosigmoid colon with mild surrounding infiltration. Inflammatory change has modestly improved as compared to 12/19/2021, as well as a 2.6 cm structure between sigmoid colon and rectum which likely represents a resolving abscess. No new diverticulitis is seen, there is trace pelvic fluid which is likely reactive. - Patient has been treated with IV ceftriaxone and IV Flagyl on previous admissions, most recently D/C'd on Augmentin 3 times daily on 12/23 and finished this on 01/03, however she had severe diarrhea and this had very negative impact on her ability to recover, the pain did resolve until last evening. - We will treat again with IV ceftriaxone and IV Flagyl , antibiotic selection for discharge may be difficult given patient's very sensitive stomach and hist ory of severe diarrhea and weakness to oral antibiotics such as p.o. Flagyl, ciprofloxacin, and Augmentin. - ? if PICC line for IV abx on discharge is a possibility. - General surgery consulted, saw patient in ED and recommending n.p.o. with IVF and antibiotics, as well as pain control. - There is no need for an acute surgical intervention at this time, however patient is very unlikely to agree to surgical intervention, even if it were an emergent situation. (2) Impaired taste: Plan: - She has lost 15-20 pounds over the last 6-12 months due to loss of taste, she reports as if her taste buds "were completely gone" after oral antibiotics. - Will check ceruloplasmin, B12, copper, zinc levels. (3) HTN (hypertension): Plan: - Hold oral agents for now as patient is n.p.o., will order 5 mg IV Lopressor every 6 hours for BP control with hold parameters. - Medications include metoprolol 50 mg twice daily, labetalol 100 mg twice daily, irbesartan 100 mg daily, and felodipine 10 mg daily. (4) Chronic kidney disease, stage 3a: Plan: - Cr 0.89, estimated CrCl 40.0, GFR 58.3. This is the patient's baseline. - Avoid nephrotoxic agents, renally dose medications as able. - Continue to monitor on a.m. labs. (5) Valvular heart disease: Plan: - Moderatesevere MR and mild AI - EF 45-50% - NPO for now, continue low dose indapamide 1.25 mg daily when tolerating PO intake. - No evidence of volume overload on exam. Plan - Admit to med/tele. - SCDs. - DNR/DNI. History of Present Illness Chief Complaint: abdominal pain x 24 hours Primary Care Provider: Tracie Rush DO Lauren Ho is an 86-year-old female with past medical history significant for recurrent diverticulitis with abscess, hypertension, moderate/severe mitral regurg, mild aortic regurg w/ reduced systolic function, frequent PACs, CKD 3, insomnia, and bowel obstruction requiring surgery 4 years ago who presents today with abdominal pain for the past 24 hours. She has been hospitalized twice within the past month for diverticulitis as well as contained perforation/abscess adjacent to the mid sigmoid colon. Both patient, patient was treated with IV Rocephin and Flagyl while admitted and transitioned to cefdinir and p.o. Flagyl on 12/17, however reportedly got much worse from the Flagyl and felt overall weak. On discharge 12/23, patient was discharged on Augmentin 3 times daily and completed this on the eighth, however she had severe diarrhea with this which made her recovery difficult. From diarrhea, her abdominal pain had resolved on discharge and she had been pain-free up until last evening when the pain returned. She is been without fever or chills, nausea, vomiting, or blood in diarrhea, however she has had loose stools since last evening and crampy abdominal pain. Is no family history of IBD, patient had a colonoscopy 4-5 years ago and at that time she reports there were no concerning findings. Additionally, patient has had an unintentional 15-20 pound weight loss over the past 6-12 months because she states she has no sense of taste and generally just does not want to eat because of this. This, as well as the recurrent diverticulitis have significantly impacted her quality of life. She lives independently in an apartment and has an active social life, however has grown from activities due to her frequent diarrhea. She does note feelings of hopelessness given her recurrent diverticulitis, as she does follow-up low fiber diet and finishes antibiotic courses, however she does not seem to ever get better. Upon presentation in ED, VS are wnl, she has been hemodynamically stable. Labs largely unremarkable, significant for mildly elevated BUN 24, Cr 0.89, at baseline. No leukocytosis, electrolyte abnormalities, transaminitis, or evidence of infection on UA. CT A/P shows sequelae of perforated diverticulitis involving the rectosigmoid colon with mild surrounding infiltration. Inflammatory change has modestly improved as compared to 12/19/2021. There is an irregular 2.6 cm soft tissue attenuation structure/phlegmon between the sigmoid colon and the rectum at the site of a previously characterized abscess. There is no significant fluid within this structure on today's examination. A colorectal fistula is not excluded. There is trace pelvic fluid that is likely reactive, as well as fecal retention and moderate constipation. Allergies Allergy/AdvReac Type Severity Reaction Status Date / Time ciprofloxacin AdvReac Severe "MADE ME Unverified 12/19/21 21:02 DEATHLY ILL" lisinopril AdvReac Intermediate Weakness Verified 12/19/21 21:02 Home Medications Medication Instructions Recorded Confirmed Type calcium carbonate 600 mg-vitamin 1 tab PO PM 08/04/18 12/19/21 History D3 20 mcg (800 unit) chewable tablet (Caltrate 600 plus D) cholecalciferol (vitamin D3) 50 2,000 unit PO QAM 08/04/18 12/19/21 History mcg (2,000 unit) tablet (Vitamin D3) felodipine 10 mg tablet,extended 10 mg PO QAM 08/04/18 12/19/21 History release 24 hr indapamide 1.25 mg tablet 1.25 mg PO QAM 08/04/18 12/19/21 History irbesartan 300 mg tablet 300 mg PO QAM 08/04/18 12/19/21 History trazodone 50 mg tablet 50 mg PO HS 08/04/18 12/19/21 History acetaminophen 650 mg 650 - 1,300 mg PO Q12H PRN Pain 02/18/21 12/19/21 History tablet,extended release lactobacillus combination no.4 3 0 mmu cells PO DAILY 02/18/21 12/19/21 History billion cell capsule (Probiotic) labetalol 100 mg tablet 100 mg PO BID #180 tabs 10/20/21 12/19/21 Rx metoprolol tartrate 50 mg tablet 50 mg PO BID #180 tabs 10/20/21 12/19/21 Rx Past Med/Surg History Medical History (Updated 01/26/22 @ 12:29 by Sarahy Lai PA-C) Abdominal pain Abdominal pain Abdominal pain, LLQ (left lower quadrant) Cardiomyopathy Chronic kidney disease, stage 3a Diverticulitis Diverticulitis Diverticulitis Diverticulitis Diverticulitis of intestine with abscess without bleeding Elevated troponin Fibromyalgia HTN (hypertension) Hypokalemia Hypokalemia Hypomagnesemia Hyponatremia Small bowel obstruction Valvular heart disease Surgical History H/O exploratory laparotomy SBO in . History of appendectomy History of section x2 History of laminectomy History of laparoscopy to remove fibroid tumor in uterus Family History Other No pertinent family history Denies family history of Myocardial infarction Stroke Social History Smoking Status: Former smoker Second Hand Exposure: No; Hx Alcohol Use: No Hx Substance Use: No Preferred Language: Yi Communication Ability: Effective Testing Lead Required: No Beliefs That Will Affect Care: None marital status: / Current Living Situation: Alone Current Living Situation Comment: Pt lives alone in [facility] How many Children do You have: 1 Feels Safe at Home: Yes Assistive Devices: Walker Review of Systems Review of Systems: Constitutional: Reports loss of appetite and loss of taste resulting in 15-20 pound weight loss over the past year; no fever/chills, weakness, fatigue, myalgias, night sweats Eyes: No diplopia, no worsening or blurred vision ENT: normal hearing, no trouble swallowing Respiratory: No cough, sputum, dyspnea at rest or on exertion Cardiovascular: No chest pain, tightness or palpitations Abdomen: Bilateral lower abdominal pain with nonbloody diarrhea x24 hours; no nausea, vomiting, or constipation : Denies dysuria, hematuria, increased urgency/frequency, urinary retention Musculoskeletal: No joint pain, calf pain, swelling Neurologic: No weakness, numbness/tingling, or balance problems Psychiatric: No anxiety or depression Skin: No rash or itch Physical Exam Physical Exam: General: awake, alert, tearful, however not in acute distress Head: Normocephalic, atraumatic ENT: PERRL, EOMI, no pharyngeal exudate, mucous membranes moist Chest: Clear to auscultation, on room air, no adventitious breath sounds Cardiac: Regular rate and rhythm, no murmur, no JVD, normal peripheral pulses, good capillary refill Abdominal: TTP in right and left lower quadrants with mild distention; NABS x 4 quadrants, soft Extremities: Normal inspection, no peripheral edema or erythema, calfs nontender to palpation Psych: Patient is tearful during our discussion and verbalizes feelings of hopelessness considering chronic/recurrent diverticulitis, however no SI/HI Neuro: AAO x 3, strength intact bilaterally and rated 5/5, no motor deficits, speech is clear, no peripheral sensory deficits Skin: no rash or erythema Results & Data Results & Data ([facility]) Vital Signs (Past 12 Hours) Vital Signs Temp Pulse Pulse Resp BP BP Pulse Ox 01/26/22 08:58 77 18 98 01/26/22 08:52 77 18 150/89 H 98 01/26/22 08:55 36.6 C 89 20 141/87 H 93 O2 Del Method 01/26/22 08:58 Room Air 01/26/22 08:52 Room Air 01/26/22 08:55 Room Air Laboratory Results Abnormal lab results 01/26/22 01/26/22 01/26/22 Range/Units 09:15 09:15 09:15 RDW Std Deviation 49.1 H (36.4-46.3) fL RDW Coeff of Mari 14.9 H (11.5-14.5) % POC Chloride (101-112) mmol/L POC BUN (7-18) mg/dl BUN 24 H (6-23) mg/dl BUN/Creatinine Ratio 27.0 H (10-20) Glucose 113 H (70-99(Fasting)) mg/dl POC Glucose (other) (70-99) mg/dl Calcium 10.3 H (8.5-10.1) mg/dl Lipase 10 L (11-82) U/L Urine Protein 1+ H (Negative) Urine Blood 1+ H (Negative) Ur Leukocyte Esterase Trace H (Negative) Urine RBC (Auto) 5-10 H (0-4) /hpf U Epithel Cells (Auto) 10-20 H (0-5) /lpf 01/26/22 Range/Units 09:32 RDW Std Deviation (36.4-46.3) fL RDW Coeff of Mari (11.5-14.5) % POC Chloride 100 L (101-112) mmol/L POC BUN 23 H (7-18) mg/dl BUN (6-23) mg/dl BUN/Creatinine Ratio (10-20) Glucose (70-99(Fasting)) mg/dl POC Glucose (other) 118 H (70-99) mg/dl Calcium (8.5-10.1) mg/dl Lipase (11-82) U/L Urine Protein (Negative) Urine Blood (Negative) Ur Leukocyte Esterase (Negative) Urine RBC (Auto) (0-4) /hpf U Epithel Cells (Auto) (0-5) /lpf Diagnostic Findings Abdomen/Pelvis CT 01/26/22 08:57 CT SCAN OF THE ABDOMEN AND PELVIS WITH IV CONTRAST CLINICAL HISTORY: Left lower quadrant abdominal pain. COMPARISON STUDY: Abdominal CT dated 12/19/2021. TECHNIQUE: Following the IV administration of 94 cc of Optiray 300, CT scan of the abdomen and pelvis is performed from the lung bases to the proximal femora. Images are reviewed in the axial, sagittal, and coronal planes. IV contrast was administered without complication. A dose lowering technique was utilized adhering to the principles of ALARA. CT DOSE: 410.73 mGy.cm FINDINGS: Lung bases: The heart is enlarged and without pericardial effusion. The lung bases are clear noting bibasilar scarring/atelectasis. There are small bilateral fat-containing Bochdalek hernia is. Liver: The contrast-enhanced liver is normal in size, contour, and attenuation. There is no intrahepatic biliary ductal dilatation. The hepatic veins and portal veins are patent. There are calcified hepatic granulomas. Gallbladder: There are tiny calcified gallstones without CT evidence of acute cholecystitis. Spleen: Normal in size and attenuation. Pancreas: Atrophic and grossly unremarkable. Adrenal glands: Unremarkable. Kidneys: The contrast enhanced kidneys demonstrate mild cortical atrophy and are without hydronephrosis. The kidneys enhance symmetrically. Abdominal vasculature: The abdominal aorta is normal in course and caliber noting moderate to advanced atherosclerotic calcification. Bowel: There is rectosigmoid fecal impaction and moderate constipation. There is perirectal infiltration and trace fluid. No bowel obstruction is seen. The appendix is not identified and reported surgically absent. There is advanced colonic diverticulosis. Again seen is a 2.6 cm soft tissue density structure/phlegmon between loops of the rectosigmoid colon. When correlated with prior examinations this likely represents a resolving abscess with possible colorectal fistula. There is mild surrounding infiltration, similar to previous. No new areas of diverticulitis are seen on today's examination. Peritoneum: There is no intraperitoneal free air or abdominal ascites. Lymphadenopathy: None. Pelvic viscera: The bladder and uterus are normal as visualized. A 3.2 cm simple cystic structure is again seen in the right ovary on image #[id number]. There are bilateral fat-containing groin hernias. Skeletal structures: The skeletal structures are osteopenic. There is mild lumbosacral spondylosis. Tarlov cysts are incidentally noted in the sacrum. No lytic or blastic lesions are seen. IMPRESSION: 1. Again seen is the sequelae of perforated diverticulitis involving the rectosigmoid colon with mild surrounding infiltration. Inflammatory change has modestly improved as compared to 12/19/2021. 2. There is an irregular 2.6 cm soft tissue attenuation structure/phlegmon between the sigmoid colon and the rectum at the site of a previously characterized abscess. There is no significant fluid within this structure on today's examination. A colorectal fistula is not excluded. 3. There is rectosigmoid fecal impaction and moderate constipation. 4. Trace free fluid in the pelvis is likely reactive. 5. Advanced colonic diverticulosis. No new foci of diverticulitis are seen on today's examination. 6. Cholelithiasis. 7. Cardiomegaly. 8. Additional findings as above. ACT 112: Negative or not required by law. Electronically signed by: Kris Douglass M.D. 01/26/2022 10:24 AM ECG Additional Comments: Sinus rhythm with occasional Premature ventricular complexes Possible Left atrial enlargement Left axis deviation Left ventricular hypertrophy with QRS widening Abnormal ECG When compared with ECG of 19-DEC-2021 20:56, Premature atrial complexes are no longer Present. Code Status & VTE Plan Code Status DNR/DNI. Supervising Physician Co-Signing Physician Notes Patient seen and examined, chart reviewed, case discussed with Sarahy Lai PA-C and I agree with the assessment and plan as above except as otherwise noted Labs and images reviewed Lauren is an 86-year-old female with history of recurrent diverticulitis with abscess, hypertension, moderate to severe mitral regurg, CKD 3 who presents with abdominal pain for 24 hours increasing from a 3 at onset to 78 out of 10 by time of ER assessment which is sharp and in the right lower quadrant. On admission she has no leukocytosis, hemoglobin is normal, and is afebrile. Sodium is normal, potassium is normal. Creatinine is 0.89 with a baseline of less than 1, creatinine clearance adjusted for age is 40. No elevated transaminases. UA is clear. CTabdomen/pelvis: Sequelae of perforated diverticulitis involving the rectosigmoid colon with mild surrounding inflammation. Modest improvement compared to 12/19/2021. Irregular 2.6 cm soft tissue attenuation between the sigmoid colon and rectum at prior abscess, but without significant fluid. Colorectal fistula not excluded. Rectosigmoid fecal impaction and moderate constipation is present, reactive free fluid is present. Cholelithiasis is noted. At bedside pt reports recurrence of RLQ pain. 15-20lbs of weight loss over the last 6 months due to poor appetite and minimal PO intake. 'Taste buds were copmletely gone after oral antibiotics, after I take them for anything that's how I end up they make me sick.' Last colo 4-5 years ago and 'looked clean, no problems or polyps at that time. Planned for 5 year followup' Seen by surgery, aware will pursue bowel rest, antibiotics at this time. Agreeable to MM. Lorraine IV OK, oral meds give her extreme stomach upset and did not tolerate. Patient is diffusely tender in the abdomen, appears with sad affect, endorses hopeless mood. Diverticulitis As above, agree with medical management and antibiotic therapy Depression with chronic disease Patient does have worsening hopelessness with limitations of her living situation and has been withdrawing from activities due to the limitation/diarrhea and her chronic illness. She has not discussed this before, and has not been on any medications for this before as it has been progressive since her disease has continued to relapse. Do not recommend adding a SSRI at this time as patient has a very sensitive stomach and wishes to minimize pill burden were possible, but may benefit from additional health counseling and follow-up either by PCP. Did discuss the relapsing nature of chronic illnesses and certain predisposing conditions such as diverticulosis/diverticulitis. Various options including expectant management and planning with continued medical treatment for flares, surgical intervention, and counseling/PCP appointments dedicated to following up on the mental health burden of chronic disease were discussed. Patient prefers to avoid surgical intervention at this time, but is open to follow-up for expectant management, medical treatment, and discussions with her PCP to check in on how she is feeling about the nature of her illness PG Care Time/CCT Total # of Minutes Spent Total Time Spent with Patient: Total time spent is greater than 50% in coordination of care (as documented) at patient's floor/unit and/or counseling patient: Coding Level of Care Code 95827 Initial Inpt Care Lvl 3 Diagnoses Sigmoid diverticulitis K57.32 Impaired taste R43.2 HTN (hypertension) I10 Hypertension type: essential hypertension Chronic kidney disease, stage 3a N18.3 Valvular heart disease I38 (1) HTN (hypertension) Hypertension type: essential hypertension Qualified Code(s): I10 - Essential (primary) hypertension
--- NOTE | 2022-01-26 11:36 | Surgery Consultation ---
Date of Consultation January 26, 2022 Assessment & Plan (1) Sigmoid diverticulitis: This is an 86y F with a PMH of HTN, CKD, cardiomyopathy, recurrent diverticulitis who presented to the [facility] ED on 01/26/22 with complaints of left sided abdominal pain that started this AM. Of significance patient was admitted twice in the last month and a half with perforated diverticulitis with abscess that was managed conservatively with supportive care and she was ultimately sent home on a course of oral abx and instructed to follow up with Dr. Morales. Today she says the pain started acutely this morning rating in an 8-9/10 that brought her in to be seen. In the ER she underwent a CT a/p that revealed "diverticulitis involving the rectosigmoid colon with mild surrounding infiltration which has modestly improved as compared to 12/19/2021. In addition, there is an irregular 2.6 cm soft tissue attenuation structure/phlegmon between the sigmoid colon and the rectum at the site of a previously characterized abscess. There is no significant fluid within this structure on today's examination. A colorectal fistula is not excluded." Overall CT scan has shown improvement since previous imaging. WBC 6.3. Patient is afebrile with stable vital signs. On exam patient's abdomen is soft with tenderness to palpation in the LLQ and supra-pubic regions. CT overall showing improvement in diverticulitis. We have no plans for acute surgical intervention in this patient at this time and patient actually unsure if she would ever want it even if indicated in an emergent situation. Patient has had intolerances to oral abx in the past and may be difficult to find what may work for her. Hospitalists have agreed to evaluate the patient for possible admission and supportive care, abx, bowel rest. As symptoms improve may advance diet as tolerates slowly back to low fiber and complete another course of abx. Supervising Physician Co-Signing Physician Notes Patient seen and examined, labs and imaging reviewed, agree with above. 86-year-old female with recent admissions for perforated diverticulitis with abscess. She just completed oral antibiotics and started having increasing pain after several bowel movements yesterday. On exam she is afebrile stable vitals. Her abdomen is soft, tender to palpation in the left lower quadrant with no guarding. WBC normal. Personally viewed and interpreted the CT scan, it shows significant improvement in the overall inflammation around the sigmoid colon and the abscess appears to be resolving. Would recommend continued IV antibiotics, no surgical intervention at this time. Patient would like to avoid surgery if at all possible. History of Present Illness History of Present Illness This is an 86y F with a PMH of HTN, CKD, cardiomyopathy, recurrent diverticulitis who presented to the [facility] ED on 01/26/22 with complaints of left sided abdominal pain that started this AM. Of significance patient was admitted twice in the last month and a half with perforated diverticulitis with abscess that was managed conservatively with supportive care and she was ultimately sent home on a course of oral abx. The patient has intolerances to multiple abx including cipro and flagyl and was last sent home on Augmentin of which she finished on the 01/03. She reported low appetite and bad diarrhea with the augmentin and she almost expresses feelings of hopelessness with the oral abx stating that she can not go through that again. Since finishing the augmentin she reports some improvement in her diet and BM habits. Unfortunately last night patient had 3 "soft but formed BM's" and developed severe abdominal pain this AM. She says at rest her pain is manageable, but with movement and pressing upon the area she rates it an 8-9/10 in severity. She reports that the pain is similar to when she was most recently admitted with diverticulitis. In the ER she underwent a CT a/p that revealed "diverticulitis involving the rectosigmoid colon with mild surrounding infiltration which has modestly improved as compared to 12/19/2021. In addition, there is an irregular 2.6 cm soft tissue attenuation structure/phlegmon between the sigmoid colon and the rectum at the site of a previously characterized abscess. There is no significant fluid within this structure on today's examination. A colorectal fistula is not excluded." The patient denies any fevers/chills, cp/sob, nausea/vomiting, or blood in BM's. Her last colonoscopy was 4-[address] Andre with apparently no issues noted, and she has not followed up with GI since his halfway. She did not follow up with surgery since discharge. Prior abdominal surgical history includes laparotomy's for SBOs (never had resection of any bowel), appendectomy, x2, and removal of large uterine fibroid. Patient says she never discussed elective surgery with anyone and she would like to avoid to surgery due to her age. Unsure if in an emergent situation she would even want surgery even then. Allergies Allergy/AdvReac Type Severity Reaction Status Date / Time ciprofloxacin AdvReac Severe "MADE ME Unverified 12/19/21 21:02 DEATHLY ILL" lisinopril AdvReac Intermediate Weakness Verified 12/19/21 21:02 Home Medications Medication Instructions Recorded Confirmed Type calcium carbonate 600 mg-vitamin 1 tab PO PM 08/04/18 12/19/21 History D3 20 mcg (800 unit) chewable tablet (Caltrate 600 plus D) cholecalciferol (vitamin D3) 50 2,000 unit PO QAM 08/04/18 12/19/21 History mcg (2,000 unit) tablet (Vitamin D3) felodipine 10 mg tablet,extended 10 mg PO QAM 08/04/18 12/19/21 History release 24 hr indapamide 1.25 mg tablet 1.25 mg PO QAM 08/04/18 12/19/21 History irbesartan 300 mg tablet 300 mg PO QAM 08/04/18 12/19/21 History trazodone 50 mg tablet 50 mg PO HS 08/04/18 12/19/21 History acetaminophen 650 mg 650 - 1,300 mg PO Q12H PRN Pain 02/18/21 12/19/21 History tablet,extended release lactobacillus combination no.4 3 0 mmu cells PO DAILY 02/18/21 12/19/21 History billion cell capsule (Probiotic) labetalol 100 mg tablet 100 mg PO BID #180 tabs 10/20/21 12/19/21 Rx metoprolol tartrate 50 mg tablet 50 mg PO BID #180 tabs 10/20/21 12/19/21 Rx Patient History Medical History (Updated 01/26/22 @ 12:29 by Sarahy Lai PA-C) Abdominal pain Abdominal pain Abdominal pain, LLQ (left lower quadrant) Cardiomyopathy Chronic kidney disease, stage 3a Diverticulitis Diverticulitis Diverticulitis Diverticulitis Diverticulitis of intestine with abscess without bleeding Elevated troponin Fibromyalgia HTN (hypertension) Hypokalemia Hypokalemia Hypomagnesemia Hyponatremia Small bowel obstruction Valvular heart disease Surgical History H/O exploratory laparotomy SBO in . 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 Beliefs That Will Affect Care: None marital status: / Current Living Situation: Alone Current Living Situation Comment: [facility] How many Children do You have: 1 Feels Safe at Home: Yes Assistive Devices: Walker Review of Systems Constitutional: + anorexia; no fever and no chills Respiratory: no dyspnea Cardiovascular: no chest pain Gastrointestinal: + abdominal pain; no bloating, no nausea, no vomiting and no blood in stools Physical Exam Physical Exam: awake/alert, tearful when discussing abx Respiratory: normal respiratory effort Gastrointestinal (Abdomen): Inspection/Auscultation: + abdomen distended (mild) and + abdominal surgical scar (midline) Percussion/Palpation: + abdomen tender (LLQ) and abdomen soft Results & Data ([facility]) Vital Signs (Past 12 Hours) Vital Signs Temp Pulse Pulse Resp BP BP Pulse Ox 01/26/22 08:58 77 18 98 01/26/22 08:52 77 18 150/89 H 98 01/26/22 08:55 36.6 C 89 20 141/87 H 93 O2 Del Method 01/26/22 08:58 Room Air 01/26/22 08:52 Room Air 01/26/22 08:55 Room Air Diagnostic Findings CT SCAN OF THE ABDOMEN AND PELVIS WITH IV CONTRAST CLINICAL HISTORY: Left lower quadrant abdominal pain. COMPARISON STUDY: Abdominal CT dated 12/19/2021. TECHNIQUE: Following the IV administration of 94 cc of Optiray 300, CT scan of the abdomen and pelvis is performed from the lung bases to the proximal femora. Images are reviewed in the axial, sagittal, and coronal planes. IV contrast was administered without complication. A dose lowering technique was utilized adhering to the principles of ALARA. CT DOSE: 410.73 mGy.cm FINDINGS: Lung bases: The heart is enlarged and without pericardial effusion. The lung bases are clear noting bibasilar scarring/atelectasis. There are small bilateral fat-containing Bochdalek hernia is. Liver: The contrast-enhanced liver is normal in size, contour, and attenuation. There is no intrahepatic biliary ductal dilatation. The hepatic veins and portal veins are patent. There are calcified hepatic granulomas. Gallbladder: There are tiny calcified gallstones without CT evidence of acute cholecystitis. Spleen: Normal in size and attenuation. Pancreas: Atrophic and grossly unremarkable. Adrenal glands: Unremarkable. Kidneys: The contrast enhanced kidneys demonstrate mild cortical atrophy and are without hydronephrosis. The kidneys enhance symmetrically. Abdominal vasculature: The abdominal aorta is normal in course and caliber noting moderate to advanced atherosclerotic calcification. Bowel: There is rectosigmoid fecal impaction and moderate constipation. There is perirectal infiltration and trace fluid. No bowel obstruction is seen. The appendix is not identified and reported surgically absent. There is advanced colonic diverticulosis. Again seen is a 2.6 cm soft tissue density structure/phlegmon between loops of the rectosigmoid colon. When correlated with prior examinations this likely represents a resolving abscess with possible colorectal fistula. There is mild surrounding infiltration, similar to previous. No new areas of diverticulitis are seen on today's examination. Peritoneum: There is no intraperitoneal free air or abdominal ascites. Lymphadenopathy: None. Pelvic viscera: The bladder and uterus are normal as visualized. A 3.2 cm simple cystic structure is again seen in the right ovary on image #330. There are bilateral fat-containing groin hernias. Skeletal structures: The skeletal structures are osteopenic. There is mild lumbosacral spondylosis. Tarlov cysts are incidentally noted in the sacrum. No lytic or blastic lesions are seen. IMPRESSION: 1. Again seen is the sequelae of perforated diverticulitis involving the rectosigmoid colon with mild surrounding infiltration. Inflammatory change has modestly improved as compared to 12/19/2021. 2. There is an irregular 2.6 cm soft tissue attenuation structure/phlegmon between the sigmoid colon and the rectum at the site of a previously characterized abscess. There is no significant fluid within this structure on today's examination. A colorectal fistula is not excluded. 3. There is rectosigmoid fecal impaction and moderate constipation. 4. Trace free fluid in the pelvis is likely reactive. 5. Advanced colonic diverticulosis. No new foci of diverticulitis are seen on today's examination. 6. Cholelithiasis. 7. Cardiomegaly. 8. Additional findings as above. ACT 112: Negative or not required by law. Electronically signed by: Kris Douglass M.D. 01/26/2022 10:24 AM PG Care Time/CCT Total # of Minutes Spent Total Time Spent with Patient: Total time spent is greater than 50% in coordination of care (as documented) at patient's floor/unit and/or counseling patient: Coding Level of Care Code 57099 Initial Inpt Care Lvl 1 Diagnoses Sigmoid diverticulitis K57.32
[2022-01-26] MEDS ORDERED: NSS + 20MEQ KCL 20 MEQ/1,000 ML BAG IV SCH (12:30)
[2022-01-26] MEDS ORDERED: metroNIDAZOLE 500 MG/100 ML BAG IV ONE (13:00)
[2022-01-26] MEDS ORDERED: cefTRIAXone SODIUM 1,000 MG/50 ML BAG IV ONE (13:00)
[2022-01-26] MEDS ORDERED: PIPERACILLIN/TAZOBACTAM 3.375 GM in DEXTROSE 5% 100 ML IV ONE (13:00)
[2022-01-26] MEDS ORDERED: ONDANSETRON INJ 2 MG/ML 2 ML VIAL IV PRN (14:12)
[2022-01-26] MEDS ORDERED: POLYETHYLENE (MIRALAX) 17 GM PACK PO PRN (14:12)
[2022-01-26] MEDS: ACETAMINOPHEN 1000 MG/100 ML IV IV PRN (17:25)
[2022-01-26] MEDS: D5W AND 1/2NSS + 20MEQ KCL 20 MEQ/1,000 ML BAG IV SCH (17:41)
[2022-01-26] MEDS: METOPROLOL TARTRATE 1 MG/ML VIAL IV SCH ×2 (17:42→23:23)
[2022-01-26] MEDS ORDERED: HYDROCORTISONE HC 2.5% CRM 30GM TUBE EXT PRN (19:00)
[2022-01-26] MEDS: metroNIDAZOLE 500 MG/100 ML BAG IV SCH (20:17)
--- NOTE | 2022-01-26 23:11 | Electrocardiogram Report ---
Test Reason : Blood Pressure : / mmHG Vent. Rate : 081 BPM Atrial Rate : 081 BPM P-R Int : 202 ms QRS Dur : 130 ms QT Int : 400 ms P-R-T Axes : 038 -60 019 degrees QTc Int : 464 ms Sinus rhythm with occasional Premature ventricular complexes Possible Left atrial enlargement Left axis deviation Left ventricular hypertrophy with QRS widening Abnormal ECG When compared with ECG of 19-DEC-2021 20:56, Premature atrial complexes are no longer Present Confirmed by Hoang Zepeda ([id number]) on 01/26/2022 11:10:56 PM Referred By: REFERRED SELF Confirmed By:Hoang Zepeda
[2022-01-27] MEDS: ACETAMINOPHEN 1000 MG/100 ML IV IV PRN (02:43)
[2022-01-27] MEDS: D5W AND 1/2NSS + 20MEQ KCL 20 MEQ/1,000 ML BAG IV SCH ×3 (05:03→21:25)
[2022-01-27] MEDS: METOPROLOL TARTRATE 1 MG/ML VIAL IV SCH ×2 (05:04→11:36)
[2022-01-27] MEDS: metroNIDAZOLE 500 MG/100 ML BAG IV SCH (05:04)
[2022-01-27 06:49] LABS: Basophils # (auto) 0.06 K/uL (0-0.2); Basophils % (auto) 0.9 %; Eosinophils # (auto) 0.35 K/uL (0-0.50); Eosinophils % (auto) 5.3 %; Hematocrit (blood only) 34.9 % (34.1-44.9); Hemoglobin 11.6 g/dl (12.0-16.0); Immature Granulocytes # (auto) 0.02 K/uL (0.00-0.02); Immature Granulocytes % (auto) 0.3 %; Lymphocytes # (auto) 1.25 K/uL (1.2-3.4); Mean Corpuscular Hemoglobin 29.5 pg (25.0-34.0); Mean Corpuscular Hgb Conc 33.2 g/dL (32.0-36.0); Mean Corpuscular Volume 88.8 fL (80.0-100.0); Monocytes # (auto) 0.79 K/uL (0.24-0.82); Neutrophils # (auto) 4.12 K/uL (1.4-6.5); Neutrophils % (auto) 62.5 %; Platelet Count 264 K/uL (130-400); RDW Coefficient of Variation 14.7 % (11.5-14.5); RDW Standard Deviation 48.1 fL (36.4-46.3); Red Blood Count 3.93 M/uL (3.93-5.22); White Blood Count 6.59 K/ul (4.8-10.8)
[2022-01-27 07:10] LABS: BUN Creatinine Ratio 22.1 (10-20); Calcium 8.9 mg/dl (8.5-10.1); Creatinine Clr Calc Pharmacy 47.6 ml/min; Est GFR (African American) 80.5 ml/min; Est GFR (Non-African American) 69.4 ml/min; Magnesium 1.6 mg/dl (1.7-2.4); Potassium 3.2 mmol/L (3.5-5.1)
[2022-01-27] MEDS ORDERED: CYANOCOBALAMIN (B-12) 500 MCG TABLET PO SCH (09:00)
[2022-01-27] MEDS ORDERED: cefTRIAXone SODIUM 1,000 MG in DEXTROSE 5% 50 ML IV SCH (09:00)
[2022-01-27] MEDS: CYANOCOBALAMIN 1000 MCG/ML VIAL IM SCH (11:23)
--- NOTE | 2022-01-27 12:27 | Surgery Progress Note ---
Date of Service January 27, 2022 Assessment & Plan (1) Diverticulitis: Plan: Patient here with abdominal pain, found to have improved diverticulitis based on CT scan yesterday WBC 6, patient afebrile Clinically patient is already starting to feel better. She is hungry. Less tenderness on exam Okay to advance diet as tolerates from our point of view Continue on course of abx...will need to decipher a plan for home abx given multiple oral intolerances Admission and Anticipated Discharge Date Admission Date: January 26, 2022 Supervising Physician Co-Signing Physician Notes Patient seen examined, agree with above. 86-year-old female with improving diverticulitis with resolving phlegmon. Feels much better after antibiotics. Abdomen soft, mildly tender left lower quadrant but improved from yesterday. We will advance her diet to clear liquids, and may advance to low fiber as tolerated. Continue antibiotics as an outpatient. Dr. Dickerson covering in my absence. Subjective Patient states she is hungry. She is feeling better overall. Passing gas. Physical Exam Physical Exam: awake/alert Gastrointestinal (Abdomen): Inspection/Auscultation: abdomen not distended Percussion/Palpation: + abdomen tender (improved LLQ ttp) and abdomen soft Results & Data ([facility]) Vital Signs (Past 12 Hours) Vital Signs Temp Pulse Pulse Resp BP BP BP 01/27/22 11:36 88 167/95 H 01/27/22 10:47 36.7 C 88 20 162/90 H 01/27/22 07:44 36.5 C 78 20 154/83 H 01/27/22 06:14 90 01/27/22 05:04 75 154/82 H 01/27/22 03:31 36.6 C 75 18 154/82 H Pulse Ox O2 Del Method 01/27/22 11:36 01/27/22 10:47 93 Room Air 01/27/22 07:44 95 Room Air 01/27/22 06:14 01/27/22 05:04 01/27/22 03:31 95 Room Air PG Care Time/CCT Total # of Minutes Spent Total Time Spent with Patient: Total time spent is greater than 50% in coordination of care (as documented) at patient's floor/unit and/or counseling patient: Coding Level of Care Code 77158 Subseq Hosp Care Lvl 1 Diagnoses Diverticulitis K57.92
--- NOTE | 2022-01-27 13:08 | Hospitalist Progress Note ---
Date of Service January 27, 2022 Assessment & Plan (1) Abdominal pain: Plan: Pt is a 86 yo female with PMH of recurrent diverticulitis with abscess, HTN, CKD 3, bowel obstruction requiring surgery, mitral and aortic regurgitation presenting with LLQ pain. She was discharged on 12/17/2021 from a hospitalization for diverticulitis with perforation. She returned on 12/20/2021 with sepsis secondary to diverticulitis. Abdominal pain (mostly LLQ) - pt with recurrent bouts of diverticulitis and very sensitive to PO antibiotics - recurrence of diverticulitis vs. viral gastroenteritis - most recently treated with flagyl and cetriaxone in hospital, upon d/c given augmentin (which caused severe diarrhea) - pt afebrile and with little abdominal pain today (much improved from yesterday) - CTAP shows sequelae of perforation and resolving abscess but no active diverticulitis - pt began on ceftriaxone and flagyl in ER - gen surg recommended diet advancement and continuation of ABX - diet progression today to full liquids for lunch and low fiber for supper - most likely not episode of diverticulitis at this point, holding antibiotics today, monitor for symptom progression CKD- stable - Cr on admission: 0.89 - Most recent Cr : 0.7 Impaired taste - she attributes this to her antibiotic use - B12 low at 167- given 1000 mcg injection x1 today, consider 2nd tomorrow? with addition of 1000mcg PO qAM - copper, zinc, and ceruloplasmin pending HTN - most recent - home meds were held d/t NPO status with exception of metoprolol IV - diet advanced to low fiber today - resumed PO home meds (metoprolol 50 mg BID, labetalol 100 mg BID, irbesartan 300 mg daily, felodipine 10 mg daily, indapamide 1.25 mg daily) Valvular heart disease - mitral and aortic regurgitation - continue home medications (2) Moderate to severe mitral regurgitation: (3) Mild aortic regurgitation with left ventricular systolic dysfunction by prior echocardiogram: (4) Chronic kidney disease, stage 3a: (5) HTN (hypertension): (6) Low vitamin B12 level: Plan Fluids/electrolytes: 20 meq K with dextrose and 1/2NS DVT ppx: SCDs Code: DNR/DNI Dispo: med/tele Admission and Anticipated Discharge Date Admission Date: January 26, 2022 Supervising Physician Co-Signing Physician Notes Patient seen and examined, chart reviewed, case discussed with Masha Maria and I agree with the assessment and plan as above except as otherwise noted Labs and images reviewed Patient seen at bedside. She reports that her diarrhea and pain have nearly completely resolved and she is extremely pleased with this. She does note she had a very poor night, her roommate is going through withdrawal and has been very disruptive and she got a very poor night sleep. Did discuss with case technician who is putting on a list for the room transfer if possible. She has no chest pain, chest pressure, abdominal pain, nausea, vomiting this morning. Did have 1 nonbloody bowel movement. On exam lungs are clear, heart rate is regular, abdomen is nontender and without guarding. Skin is warm and dry. Abdominal pain Patient has had extremely rapid clinical improvement, even given being on antibiotics. Given that she was adequately treated previously for diverticulitis, and all parts of her CT were improving it is possible that this represents a superimposed viral or transient enteritis rather than a recurrence of her diverticulitis. Despite this, she does have sequelae of improving but not resolved diverticulitis with abscess and she is a high readmission risk with multiple recurrence of similar episodes. Given this we will discontinue her antibiotics, especially given that she has extremely poor tolerance to these and cannot tolerate p.o. antibiotics on discharge, and follow clinically. If she remains well will defer further antibiotics, if she again clinically worsens then would pursue a complete course of treatment at that time. C. difficile was ordered, however given resolution of symptoms may cancel this as low suspicion. Impaired taste: Previously attributed to antibiotics, but notes general nutritional deficiency at high risk for micronutrient deficiency. B12 was extremely low, will give IM x2 then convert to high-dose p.o. Zinc level remains pending. Tolerating p.o. liquids today, may resume home medications. Of note patient is on both metoprolol and labetalol, these have been both titrated by cardiology as an outpatient and patient is doing well on his Subjective Pt is a 86 yo female with PMH of recurrent diverticulitis with abscess, HTN, CKD 3, bowel obstruction requiring surgery, mitral and aortic regurgitation presenting with LLQ pain. She was discharged on 12/17/2021 from a hospitalization for diverticulitis with perforation. She returned on 12/20/2021 with sepsis secondary to diverticulitis. 01/27/2022: Pt feeling well overall this AM. She explains that most of her pain has resolved. She is just tired and upset that these "episodes" seem to keep happening. She was also very hungry this morning. Her diet was advanced for lunch, which she enjoyed. Physical Exam Constitutional: NAD. Vitals WNL. Eyes: no conjunctival abnormality Respiratory: CTA bilaterally. No rhonchi, wheezing, or crackles. Non labored breathing. Cardiovascular: RRR. No murmur noted. No LL edema. Gastrointestinal (Abdomen): Tender upon palpation in LUQ and LLQ, +BS. No masses noted. Skin: no rashes, warm and dry Psychiatric: Alert. Mood and affect congruent. Results & Data Results & Data ([facility]) Vital Signs (Past 12 Hours) Vital Signs Temp Pulse Pulse Resp BP BP BP 01/27/22 11:36 88 167/95 H 01/27/22 10:47 36.7 C 88 20 162/90 H 01/27/22 07:44 36.5 C 78 20 154/83 H 01/27/22 06:14 90 01/27/22 05:04 75 154/82 H 01/27/22 03:31 36.6 C 75 18 154/82 H Pulse Ox O2 Del Method 01/27/22 11:36 01/27/22 10:47 93 Room Air 01/27/22 07:44 95 Room Air 01/27/22 06:14 01/27/22 05:04 01/27/22 03:31 95 Room Air Diagnostic Findings Abdomen/Pelvis CT 01/26/22 08:57 CT SCAN OF THE ABDOMEN AND PELVIS WITH IV CONTRAST CLINICAL HISTORY: Left lower quadrant abdominal pain. COMPARISON STUDY: Abdominal CT dated 12/19/2021. TECHNIQUE: Following the IV administration of 94 cc of Optiray 300, CT scan of the abdomen and pelvis is performed from the lung bases to the proximal femora. Images are reviewed in the axial, sagittal, and coronal planes. IV contrast was administered without complication. A dose lowering technique was utilized adhering to the principles of ALARA. CT DOSE: 410.73 mGy.cm FINDINGS: Lung bases: The heart is enlarged and without pericardial effusion. The lung bases are clear noting bibasilar scarring/atelectasis. There are small bilateral fat-containing Bochdalek hernia is. Liver: The contrast-enhanced liver is normal in size, contour, and attenuation. There is no intrahepatic biliary ductal dilatation. The hepatic veins and portal veins are patent. There are calcified hepatic granulomas. Gallbladder: There are tiny calcified gallstones without CT evidence of acute cholecystitis. Spleen: Normal in size and attenuation. Pancreas: Atrophic and grossly unremarkable. Adrenal glands: Unremarkable. Kidneys: The contrast enhanced kidneys demonstrate mild cortical atrophy and are without hydronephrosis. The kidneys enhance symmetrically. Abdominal vasculature: The abdominal aorta is normal in course and caliber noting moderate to advanced atherosclerotic calcification. Bowel: There is rectosigmoid fecal impaction and moderate constipation. There is perirectal infiltration and trace fluid. No bowel obstruction is seen. The appendix is not identified and reported surgically absent. There is advanced colonic diverticulosis. Again seen is a 2.6 cm soft tissue density structure/phlegmon between loops of the rectosigmoid colon. When correlated with prior examinations this likely represents a resolving abscess with possible colorectal fistula. There is mild surrounding infiltration, similar to previous. No new areas of diverticulitis are seen on today's examination. Peritoneum: There is no intraperitoneal free air or abdominal ascites. Lymphadenopathy: None. Pelvic viscera: The bladder and uterus are normal as visualized. A 3.2 cm simple cystic structure is again seen in the right ovary on image #330. There are bilateral fat-containing groin hernias. Skeletal structures: The skeletal structures are osteopenic. There is mild lumbosacral spondylosis. Tarlov cysts are incidentally noted in the sacrum. No lytic or blastic lesions are seen. IMPRESSION: 1. Again seen is the sequelae of perforated diverticulitis involving the rectosigmoid colon with mild surrounding infiltration. Inflammatory change has modestly improved as compared to 12/19/2021. 2. There is an irregular 2.6 cm soft tissue attenuation structure/phlegmon between the sigmoid colon and the rectum at the site of a previously characterized abscess. There is no significant fluid within this structure on today's examination. A colorectal fistula is not excluded. 3. There is rectosigmoid fecal impaction and moderate constipation. 4. Trace free fluid in the pelvis is likely reactive. 5. Advanced colonic diverticulosis. No new foci of diverticulitis are seen on today's examination. 6. Cholelithiasis. 7. Cardiomegaly. 8. Additional findings as above. ACT 112: Negative or not required by law. Electronically signed by: Kris Douglass M.D. 01/26/2022 10:24 AM Resident Activity Tracking Resident Involvement: Resident Care Provided Care Provided: Adult Hospital Medicine (1) HTN (hypertension) Hypertension type: essential hypertension Qualified Code(s): I10 - Essential (primary) hypertension
--- NOTE | 2022-01-27 18:18 | Billing Data ---
Date of Service January 27, 2022 Coding Level of Care Code 99337 Subseq Obs Care Lvl 2
[2022-01-27] MEDS ORDERED: traZODone HCL 50 MG TAB PO SCH (21:00)
[2022-01-27] MEDS: METOPROLOL TARTRATE 50 MG TAB PO SCH (21:13)
[2022-01-27] MEDS: LABETALOL HCL 100 MG TAB PO SCH (21:14)
[2022-01-28] MEDS: ACETAMINOPHEN 1000 MG/100 ML IV IV PRN (01:56)
[2022-01-28 06:15] LABS: Basophils # (auto) 0.07 K/uL (0-0.2); Eosinophils # (auto) 0.56 K/uL (0-0.50); Hematocrit (blood only) 37.9 % (34.1-44.9); Hemoglobin 12.7 g/dl (12.0-16.0); Immature Granulocytes # (auto) 0.01 K/uL (0.00-0.02); Immature Granulocytes % (auto) 0.1 %; Lymphocytes # (auto) 1.78 K/uL (1.2-3.4); Lymphocytes % (auto) 25.4 %; Mean Corpuscular Hemoglobin 29.4 pg (25.0-34.0); Mean Corpuscular Hgb Conc 33.5 g/dL (32.0-36.0); Mean Corpuscular Volume 87.7 fL (80.0-100.0); Mean Platelet Volume 10.1 fL (9.4-12.3); Monocytes # (auto) 0.98 K/uL (0.24-0.82); Neutrophils # (auto) 3.61 K/uL (1.4-6.5); Neutrophils % (auto) 51.5 %; Platelet Count 266 K/uL (130-400); RDW Coefficient of Variation 14.9 % (11.5-14.5); RDW Standard Deviation 48.1 fL (36.4-46.3); Red Blood Count 4.32 M/uL (3.93-5.22); White Blood Count 7.01 K/ul (4.8-10.8)
[2022-01-28 06:41] LABS: BUN Creatinine Ratio 13.8 (10-20); Calcium 9.1 mg/dl (8.5-10.1); Creatinine Clr Calc Pharmacy 41.9 ml/min; Est GFR (African American) 69.4 ml/min; Est GFR (Non-African American) 59.9 ml/min; Potassium 3.4 mmol/L (3.5-5.1)
[2022-01-28] MEDS ORDERED: POTASSIUM CHLORIDE CRTAB 20 MEQ TABCR PO STA (06:47)
[2022-01-28] MEDS: LABETALOL HCL 100 MG TAB PO SCH (08:20)
[2022-01-28] MEDS: METOPROLOL TARTRATE 50 MG TAB PO SCH (08:20)
[2022-01-28] MEDS: CYANOCOBALAMIN 1000 MCG/ML VIAL IM SCH (08:20)
[2022-01-28] MEDS ORDERED: FELODIPINE 5 MG TABCR PO SCH (09:00)
[2022-01-28] MEDS ORDERED: IRBESARTAN 150 MG TAB PO SCH (09:00)
[2022-01-28] MEDS ORDERED: INDAPAMIDE 1.25 MG TAB PO SCH (09:00)
--- NOTE | 2022-01-28 11:02 | Surgery Progress Note ---
Date of Service January 28, 2022 Assessment & Plan (1) Diverticulitis: Plan: Patient does not need urgent surgical intervention Medical plan appears to be reasonable Discharge when okay with medical team Admission and Anticipated Discharge Date Admission Date: January 26, 2022 Subjective Patient is awake and alert in no distress Has some mild left-sided abdominal discomfort but nothing in the pelvis She wants to go home Review of Systems Constitutional: + anorexia; no fever and no chills Respiratory: no dyspnea Cardiovascular: no chest pain Gastrointestinal: + abdominal pain; no bloating, no nausea, no vomiting and no blood in stools Results & Data ([facility]) Vital Signs (Past 12 Hours) Vital Signs Temp Pulse Pulse Resp BP Pulse Ox O2 Del Method 01/28/22 07:53 36.6 C 84 19 165/92 H 94 Room Air 01/28/22 04:23 81 01/28/22 03:25 36.8 C 82 18 134/76 95 Room Air 01/27/22 23:08 36.4 C L 80 18 160/90 H 94 Room Air PG Care Time/CCT Total # of Minutes Spent Total Time Spent with Patient: Total time spent is greater than 50% in coordination of care (as documented) at patient's floor/unit and/or counseling patient: Coding Level of Care Code 53355 Inpt Consult Level 2 Diagnoses Diverticulitis K57.92
--- NOTE | 2022-01-28 14:05 | Discharge Summary ---
Date of Service January 28, 2022 Admission HPI Per Admitting Provider Lauren Ho is an 86-year-old female with past medical history significant for recurrent diverticulitis with abscess, hypertension, moderate/severe mitral regurg, mild aortic regurg w/ reduced systolic function, frequent PACs, CKD 3, insomnia, and bowel obstruction requiring surgery 4 years ago who presents today with abdominal pain for the past 24 hours. She has been hospitalized twice within the past month for diverticulitis as well as contained perforation/abscess adjacent to the mid sigmoid colon. Both patient, patient was treated with IV Rocephin and Flagyl while admitted and transitioned to cefdinir and p.o. Flagyl on 12/17, however reportedly got much worse from the Flagyl and felt overall weak. On discharge 12/23, patient was discharged on Augmentin 3 times daily and completed this on the eighth, however she had severe diarrhea with this which made her recovery difficult. From diarrhea, her abdominal pain had resolved on discharge and she had been pain-free up until last evening when the pain returned. She is been without fever or chills, nausea, vomiting, or blood in diarrhea, however she has had loose stools since last evening and crampy abdominal pain. Is no family history of IBD, patient had a colonoscopy 4-5 years ago and at that time she reports there were no concerning findings. Additionally, patient has had an unintentional 15-20 pound weight loss over the past 6-12 months because she states she has no sense of taste and generally just does not want to eat because of this. This, as well as the recurrent diverticulitis have significantly impacted her quality of life. She lives independently in an apartment and has an active social life, however has grown from activities due to her frequent diarrhea. She does note feelings of hopelessness given her recurrent diverticulitis, as she does follow-up low fiber diet and finishes antibiotic courses, however she does not seem to ever get better. Upon presentation in ED, VS are wnl, she has been hemodynamically stable. Labs largely unremarkable, significant for mildly elevated BUN 24, Cr 0.89, at baseline. No leukocytosis, electrolyte abnormalities, transaminitis, or evidence of infection on UA. CT A/P shows sequelae of perforated diverticulitis involving the rectosigmoid colon with mild surrounding infiltration. Inflammatory change has modestly improved as compared to 12/19/2021. There is an irregular 2.6 cm soft tissue attenuation structure/phlegmon between the sigmoid colon and the rectum at the site of a previously characterized abscess. There is no significant fluid within this structure on today's examination. A colorectal fistula is not excluded. There is trace pelvic fluid that is likely reactive, as well as fecal retention and moderate constipation. Admission Exam Per Admitting Provider General: awake, alert, tearful, however not in acute distress Head: Normocephalic, atraumatic ENT: PERRL, EOMI, no pharyngeal exudate, mucous membranes moist Chest: Clear to auscultation, on room air, no adventitious breath sounds Cardiac: Regular rate and rhythm, no murmur, no JVD, normal peripheral pulses, good capillary refill Abdominal: TTP in right and left lower quadrants with mild distention; NABS x 4 quadrants, soft Extremities: Normal inspection, no peripheral edema or erythema, calfs nontender to palpation Psych: Patient is tearful during our discussion and verbalizes feelings of hopelessness considering chronic/recurrent diverticulitis, however no SI/HI Neuro: AAO x 3, strength intact bilaterally and rated 5/5, no motor deficits, speech is clear, no peripheral sensory deficits Skin: no rash or erythema Principal Diagnosis lower abdominal pain Discharge Exam Constitutional NAD, vitals WNL Respiratory CTA bilaterally. No rhonchi, wheezing, or crackles. Non labored breathing. Cardiovascular RRR. No murmurs noted. Gastrointestinal (Abdomen) Mildly tender to palpation on left side of abdomen, +BS. No masses noted. Soft, no guarding. Discharge Data Allergies Allergy/AdvReac Type Severity Reaction Status Date / Time ciprofloxacin AdvReac Severe "MADE ME Unverified 12/19/21 21:02 DEATHLY ILL" lisinopril AdvReac Intermediate Weakness Verified 12/19/21 21:02 Consultations 01/26/22 11:23 ED Decision to Admit Stat 01/26/22 14:12 Consult General Surgery Routine Ordered Studies 01/26/22 08:57 CT Abd and Pelvis [CT abd pelvis IV con only] Stat Abdomen/Pelvis CT 01/26/22 08:57 CT SCAN OF THE ABDOMEN AND PELVIS WITH IV CONTRAST CLINICAL HISTORY: Left lower quadrant abdominal pain. COMPARISON STUDY: Abdominal CT dated 12/19/2021. TECHNIQUE: Following the IV administration of 94 cc of Optiray 300, CT scan of the abdomen and pelvis is performed from the lung bases to the proximal femora. Images are reviewed in the axial, sagittal, and coronal planes. IV contrast was administered without complication. A dose lowering technique was utilized adhering to the principles of ALARA. CT DOSE: 410.73 mGy.cm FINDINGS: Lung bases: The heart is enlarged and without pericardial effusion. The lung bases are clear noting bibasilar scarring/atelectasis. There are small bilateral fat-containing Bochdalek hernia is. Liver: The contrast-enhanced liver is normal in size, contour, and attenuation. There is no intrahepatic biliary ductal dilatation. The hepatic veins and portal veins are patent. There are calcified hepatic granulomas. Gallbladder: There are tiny calcified gallstones without CT evidence of acute cholecystitis. Spleen: Normal in size and attenuation. Pancreas: Atrophic and grossly unremarkable. Adrenal glands: Unremarkable. Kidneys: The contrast enhanced kidneys demonstrate mild cortical atrophy and are without hydronephrosis. The kidneys enhance symmetrically. Abdominal vasculature: The abdominal aorta is normal in course and caliber noting moderate to advanced atherosclerotic calcification. Bowel: There is rectosigmoid fecal impaction and moderate constipation. There is perirectal infiltration and trace fluid. No bowel obstruction is seen. The appendix is not identified and reported surgically absent. There is advanced colonic diverticulosis. Again seen is a 2.6 cm soft tissue density structure/phlegmon between loops of the rectosigmoid colon. When correlated with prior examinations this likely represents a resolving abscess with possible colorectal fistula. There is mild surrounding infiltration, similar to previous. No new areas of diverticulitis are seen on today's examination. Peritoneum: There is no intraperitoneal free air or abdominal ascites. Lymphadenopathy: None. Pelvic viscera: The bladder and uterus are normal as visualized. A 3.2 cm simple cystic structure is again seen in the right ovary on image #[id number]. There are bilateral fat-containing groin hernias. Skeletal structures: The skeletal structures are osteopenic. There is mild lumbosacral spondylosis. Tarlov cysts are incidentally noted in the sacrum. No lytic or blastic lesions are seen. IMPRESSION: 1. Again seen is the sequelae of perforated diverticulitis involving the rectosigmoid colon with mild surrounding infiltration. Inflammatory change has modestly improved as compared to 12/19/2021. 2. There is an irregular 2.6 cm soft tissue attenuation structure/phlegmon between the sigmoid colon and the rectum at the site of a previously characterized abscess. There is no significant fluid within this structure on today's examination. A colorectal fistula is not excluded. 3. There is rectosigmoid fecal impaction and moderate constipation. 4. Trace free fluid in the pelvis is likely reactive. 5. Advanced colonic diverticulosis. No new foci of diverticulitis are seen on today's examination. 6. Cholelithiasis. 7. Cardiomegaly. 8. Additional findings as above. ACT 112: Negative or not required by law. Electronically signed by: Kris Douglass M.D. 01/26/2022 10:24 AM Hospital Course (1) Abdominal pain: Pt is a 86 yo female with PMH of recurrent diverticulitis with abscess, HTN, CKD 3, bowel obstruction requiring surgery, mitral and aortic regurgitation presenting with LLQ pain. She was discharged on 12/17/2021 from a [facility] for diverticulitis with perforation. She returned on 12/20/2021 with sepsis secondary to diverticulitis. Abdominal pain (mostly LLQ) - pt with recurrent bouts of diverticulitis and very sensitive to PO antibiotics - recurrence of diverticulitis vs. viral gastroenteritis (more likely) - most recently treated with flagyl and cetriaxone in hospital, upon d/c given augmentin (which caused severe diarrhea) - CTAP shows sequelae of perforation and resolving abscess but no active diverticulitis - pt began on ceftriaxone and flagyl in ER - diet progressed from NPO to full liquids to low fiber- tolerated well (main issue with eating is lack of taste at this point) - most likely not an episode of diverticulitis, held antibiotics while in hos pital and monitored for clinical improvement - pt clinically stable and improving- does not need to be on ABX upon d/c - prescribed augmentin x5days pill in pocket style (pt instructed to contact PCP if necessary to use this med) CKD- stable - Cr on admission: 0.89 - Most recent Cr : 0.87 Impaired taste - she attributes this to her antibiotic use - B12 low at 167- given 1000 mcg injection x2 while admitted - copper, zinc, and ceruloplasmin pending - recommend continuation of B12 repletion outpatient injection or PO HTN - most recent - home meds were held initially d/t NPO status with exception of metoprolol IV - resumed PO home meds yesterday (metoprolol 50 mg BID, labetalol 100 mg BID, irbesartan 300 mg daily, felodipine 10 mg daily, indapamide 1.25 mg daily)- tolerated well - continue home medications upon d/c Valvular heart disease - mitral and aortic regurgitation - continue home medications upon d/c (2) Moderate to severe mitral regurgitation: (3) Mild aortic regurgitation with left ventricular systolic dysfunction by prior echocardiogram: (4) Chronic kidney disease, stage 3a: (5) HTN (hypertension): (6) Low vitamin B12 level: Plan Fluids/electrolytes: none DVT ppx: SCDs while hospitalized Code: DNR/DNI Dispo: home Total Time Total Time Spent Total Time Spent (In Minutes): >30 Discharge Plan Discharge Items Patient Disposition: Home - Self-Care Reason For Visit: DIVERTICULITIS Discharge Diagnosis: lower abdominal pain Activity: Resume your previous activity Non-emergency contact: Primary Care Provider Call non-emergency contact if: you have any medication questions, your symptoms worsen and your pain is not controlled Follow-up/Referrals: Tracie Rush DO [Primary Care Provider] - 02/07/22 10:30 am (Appointment with Dr. Gusman) Diet: Low Fiber Addtl Attending Provider Instructions: You were admitted to the hospital for severe abdominal pain, thought to possibly represent an episode of diverticulitis. You were treated initially with the IV antibiotics ceftriaxone and metronidazole. Your abdominal symptoms seemed to resolve quickly so your diet was advanced and the antibiotics were stopped. There seems to be no need for antibiotics upon your return home as your CT scan did not show active diverticulitis. During your stay, your vitamin B12 level was found to be low and repletion was started via two injections. A discharge summary will be sent to your primary care physician to ensure continuity of care. Please bring this discharge summary with you to your next office appointment so that your provider can review it at that time. Medications: Your medication list has been reviewed and reconciled upon discharge to ensure accuracy and continuity of care. An updated list of all your medications is included with your hospital discharge paperwork. Please review this list closely and make note of any changes to your medications. - You received two injections of vitamin B12 while in the hospital. You should talk with your PCP about further injections or oral supplements to make sure your vitamin B12 levels stay up. - Augmentin was sent to the pharmacy just in case you are to have these symptoms again. 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 If you do need it, please notify your primary care provider that you need the medication. - Otherwise, continue all your medications at home as before your hospitalization. Follow up appointments: - Make a follow up appointment with your PCP within the next week. It is very important that you follow up with them shortly after discharge from the hospital. CONTACT YOUR PRIMARY CARE PROVIDER if you experience any of the following: - Difficulty following your treatment plan - Difficulty taking any of your medications CALL 911 OR GO TO THE EMERGENCY DEPARTMENT if you experience any of the following: - Severe abdominal pain that is unmanageable at home - Blood with bowel movements - Sudden, severe abdominal pain or nausea/vomiting - Severe chest pain or chest pain that radiates to your jaw or arm - Sudden, severe shortness of breath or difficulty breathing Pending Studies at Discharge: No Stand-Alone Forms: My [facility] [place] Native, Smoking Cessation Medications and DC Order Prescriptions: New amoxicillin-pot clavulanate 875-125 mg tablet 1 tab PO BID Qty: 10 0RF Rx Instructions: Pill in pocket approach. 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 Patient to notify PCP (Dr. Rush) if she fills this. Continued metoprolol tartrate 50 mg tablet 50 mg PO BID Qty: 180 3RF labetalol 100 mg tablet 100 mg PO BID Qty: 180 3RF Rx Instructions: TAKEN IN ADDITION TO REDUCED DOSE METOPROLOL trazodone 50 mg tablet 50 mg PO HS indapamide 1.25 mg tablet 1.25 mg PO QAM felodipine 10 mg tablet extended release 24 hr 10 mg PO QAM irbesartan 300 mg Tablet 300 mg PO QAM cholecalciferol (vitamin D3) [Vitamin D3] 2,000 unit Tablet 2,000 unit PO QAM Caltrate 600 plus D 600 mg (1,500 mg)-800 unit Tablet,Chewable 1 tab PO PM acetaminophen 650 mg Tablet Extended Release 650 - 1,300 mg PO Q12H PRN (Reason: Pain) Probiotic 3 billion cell Capsule 0 mmu cells PO DAILY Discharge Orders: Discharge Order (Routine); Ordered 01/28/22 Ordered By: Masha Yates/Other Patient Handouts: Vitamin B-12, Diverticulitis Dc Admission Data Admit Date/Time: 01/26/22 11:24 Attending Provider: Abhilash Pearson Admit Provider: Abhilash Pearson Primary Care Provider: Tracie Rush Other Providers: Abhilash Pearson ; Kwesi Light. Other Interventions: Discharge Summary Assessment (RN) Last Done: 01/28/22 15:23 Supervising Physician Co-Signing Physician Notes Patient seen and examined, chart reviewed, case discussed with Masha Luna DO. Sorry for and I agree with the assessment and plan as above except as otherwise noted Labs and images reviewed Seen at bedside prior to discharge. She feels well, is very excited she had a good lunch. She notes her abdominal pain has improved, she had 1 good bowel movement last night. Overall feels very well. Abdomen is lungs are clear, heart rate is regular. Euvolemic Agree with management above. Does not show signs of ongoing diverticulitis requiring extension of antibiotics, suspect that she had a admitted course of enteritis. Been doing well off antibiotics for more than 24 hours with no signs of fever or leukocytosis. Patient was highly concerned by recurrent diverticulitis, so when shared decision making is okay with having a Augmentin pill in pocket approach sent for 5 days with the caveat that if she is going to use that she needs to notify her primary care provider. Patient reassured that she is doing better, and does feel that she is at her baseline level of strength. Is able to pass to get up and go test at discharge and walk with her walker. Pt does also have severe protein calorie malnutrition. Clinical Indicators: 86 yo female presenting with recurrent diverticulitis. Has lost 12.9 kg (15.9%) since hospitalization in 11/2021. Reports she has lost her sense of taste and does not want to eat because of this. Treatment: IV rocephin, IV flagyl, IV fluids, I/O, monitor weight Risk Factor(s): age, recurrent diverticulitis, loss of taste Tx: Po improving with noted treatment, vitamin B12 repleted for taste, recommended boost and nutrition supplements Resident Activity Tracking Resident Involvement: Resident Care Provided Care Provided: Adult [facility]
--- NOTE | 2022-01-28 16:45 | Billing Data ---
Date of Service January 28, 2022 Coding Level of Care Code D/C DAY MANAGEMENT >30 MINS
[2022-02-01 15:07] LABS: Ceruloplasmin 29 mg/dL (18-53); Copper, Serum 108 mcg/dL (70-175); Zinc 49 mcg/dL (60-130)
== END 2022-01-28 15:58 | disposition home or self-care (01) ==
LOC: ED 08:52 → EDINP 11:24 → INTOOBSV 11:24 → 2N 14:14

== ENCOUNTER 2024-02-02 08:36 | Observation (INO) ==
--- NOTE | 2024-02-02 08:41 | Emergency Department Note ---
Impression & Plan Diverticulitis, Left lower quadrant abdominal pain ED Provider Note NAME: MANNIE CAMARENA AGE: 88 SEX: F : 1935 ARRIVES VIA: Ambulance INFORMANT: Patient ED PROVIDER(S): Herson Castaneda MD CHIEF COMPLAINT: Abdominal pain PLAN: Disposition: Admit MEDICAL DECISION MAKING: The patient is a pleasant 88-year-old woman with a past medical history of diverticulitis, hypertension, fibromyalgia, cardiomyopathy, CKD who presents to the emergency department via EMS for evaluation of acute onset lower abdominal pain that began around 4 AM today when she went to the bathroom to urinate. Patient has any blood in her urine or burning with urination. She reports she has been moving her bowels normally without constipation or diarrhea. She has any fevers, chills, cough congestion, vomiting. She reports that her pain does not feel like her prior diverticulitis. On evaluation patient no distress, afebrile with blood pressure in 180s/110s and vital signs otherwise stable. She appears complete dry. She has mild left lower quadrant abdominal tenderness without guarding or rebound. EKG without overt acute ischemia. WBC, H/H and platelets within normal limits. Chemistry without metabolic acidosis. BUN/creatinine is 27, consistent with patient's clinical dry appearance. LFTs are unremarkable. Lipase is not elevated. UA without evidence of infection. CT of the abd pelvis demonstrates evidence of mild acute sigmoid diverticulitis without perforation or abscess. Given the patient has no fevers and has no leukocytosis plan for outpatient follow-up and oral antibiotics reviewed with the patient's daughter however she had concerns that the patient cannot tolerate oral antibiotics as she becomes sick and vomits and will need to come back. Thus, we agreed to proceed with escalation in care and referral to hospital service for consideration of admission. Case was d/w Dr. Ash, [facility] hospitalist who will evaluate the patient for admission. IV ceftriaxone and metronidazole was ordered. Further management per admitting team. Triage Nursing notes reviewed and agree them. Prior/external medical records reviewed Vital Signs: reviewed Differential diagnosis: Gastroenteritis, food borne illness, infections, appendicitis, diverticulitis, inflammatory bowel disease, obstruction, GI bleed, biliary pathology, volvulus, as well as other pathologies. ER treatment provided: See below. Diagnostics interpreted by me: ECG: Sinus rhythm with fusion complexes, 84 bpm, LVH, no overt ST ovation or depression, QTc 446, QRS 128. Cardiac Monitoring: An order for continuous cardiac monitoring was placed and demonstrated Sinus rhythm with fusion complexes, 84 bpm. Laboratory studies: See below Imaging studies: See below Consultation(s): Case was d/w Dr. Ash, [facility] hospitalist who will evaluate the patient for admission. HPI: The patient is a pleasant 88-year-old woman with a past medical history of diverticulitis, hypertension, fibromyalgia, cardiomyopathy, CKD who presents to the emergency department via EMS for evaluation of acute onset lower abdominal pain that began around 4 AM today when she went to the bathroom to urinate. Patient has any blood in her urine or burning with urination. She reports she has been moving her bowels normally without constipation or diarrhea. She has any fevers, chills, cough congestion, vomiting. She reports that her pain does not feel like her prior diverticulitis. ROS: See above HPI for pertinent positives & negatives. A total of 10 systems reviewed and were otherwise negative. VITALS:See Below PHYSICAL EXAMINATION: GENERAL: Awake, alert, in no distress HENT: Normocephalic, atraumatic. Oropharynx with dry mucous membranes and otherwise unremarkable. EYES: Normal conjunctiva. Sclera non-icteric. NECK: Supple. No nuchal rigidity. FROM. No JVD. RESPIRATORY: Clear to auscultation. CARDIAC: Regular rate, normal rhythm. Extremities warm and well perfused. Pulses equal. ABDOMEN: Soft, non-distended. Mild LLQ tenderness to palpation. No rebound or guarding. No masses. MUSCULOSKELETAL: Chest examination reveals no tenderness. The back is symmetrical on inspection without obvious abnormality. There is no CVA tenderness to palpation. No joint edema. LOWER EXTREMITIES: Calves are equal size bilaterally and non-tender. No edema. No discoloration. NEURO: Normal sensorium. No sensory or motor deficits noted. SKIN: No rash or jaundice noted. Herson Castaneda MD Past Med/Surg History Problem List Left lower quadrant abdominal pain (Acute) Diverticulitis (Acute) Low vitamin B12 level Impaired taste HTN (hypertension) (Chronic) Leaky heart valve Fibromyalgia Osteoarthritis of knees, bilateral Chronic kidney disease, stage 3a Cardiomyopathy Protein calorie malnutrition Asymptomatic bacteriuria Weakness Heart palpitations (Acute) PAC (premature atrial contraction) (Acute) Moderate to severe mitral regurgitation Mild aortic regurgitation with left ventricular systolic dysfunction by prior echocardiogram Diverticulitis of intestine with perforation and abscess (Acute) Insomnia Nausea (Acute) Medical History Abdominal abscess Abdominal pain Sigmoid diverticulitis Diverticulitis Abdominal pain, LLQ (left lower quadrant) Diverticulitis of intestine with abscess without bleeding Elevated troponin Hypokalemia Diverticulitis Abdominal pain Diverticulitis Abdominal pain Valvular heart disease Hypokalemia Hypomagnesemia Hyponatremia Small bowel obstruction Diverticulitis Surgical History H/O exploratory laparotomy SBO in . 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: No Beliefs That Will Affect Care: None marital status: / Current Living Situation: Alone Current Living Situation Comment: Pt lives alone in [facility] How many Children do You have: 1 Other Information That Helps Us Care for You: No Feels Safe at Home: Yes Assistive Devices: Denture - Upper, Glasses, Hearing Aid - Left, Hearing Aid - Right and Walker Allergies Allergies Allergy/AdvReac Type Severity Reaction Status Date / Time ciprofloxacin AdvReac Severe "MADE ME Unverified 12/19/21 21:02 DEATHLY ILL" lisinopril AdvReac Intermediate Weakness Verified 12/19/21 21:02 Home Meds Home Medications Medication Instructions Recorded Confirmed calcium carbonate 600 mg-vitamin 1 tab PO PM 08/04/18 02/02/24 D3 20 mcg (800 unit) chewable tablet (Caltrate 600 plus D) cholecalciferol (vitamin D3) 50 2,000 unit PO QAM 08/04/18 02/02/24 mcg (2,000 unit) tablet (Vitamin D3) felodipine 10 mg tablet,extended 10 mg PO QAM 08/04/18 02/02/24 release 24 hr indapamide 1.25 mg tablet 1.25 mg PO QAM 08/04/18 02/02/24 irbesartan 300 mg tablet 300 mg PO QAM 08/04/18 02/02/24 trazodone 50 mg tablet 50 mg PO HS 08/04/18 02/02/24 acetaminophen 650 mg 650 - 1,300 mg PO Q12H PRN Pain 02/18/21 02/02/24 tablet,extended release lactobacillus combination no.4 3 0 mmu cells PO DAILY 02/18/21 02/02/24 billion cell capsule (Probiotic) Previous Rx's Medication Instructions Recorded labetalol 100 mg tablet 100 mg PO BID #180 tabs 09/26/23 metoprolol tartrate 50 mg tablet 50 mg PO BID #180 tabs 09/26/23 Results & Data (ED) Vital Signs Vital Signs - 24 hr 02/02/24 08:38 02/02/24 08:49 02/02/24 10:03 Temperature 36.4 C L Temperature Source Oral Pulse Rate 88 88 91 H Pulse Rate [Right Finger] Pulse Rate from SpO2 Sensor Pulse Rhythm [Right Finger] Pulse Strength [Right Finger] Respiratory Rate 20 18 Respiratory Effort / Characteristics Non-Labored Spontaneous Respiratory Depth Normal Respiratory Pattern Regular Blood Pressure 180/110 H 165/104 H Blood Pressure [Right Arm] Blood Pressure Mean 133 124 Blood Pressure Mean [Right Arm] Blood Pressure Position [Right Arm] Pulse Oximetry 96 94 Oxygen Delivery Method Room Air Sepsis Recent Fever Within 48 Hours No Sepsis New/Unexplained Change in Mental Status No Sepsis Action Taken by Nursing No Action Required 02/02/24 10:30 02/02/24 11:03 02/02/24 12:30 Temperature Temperature Source Pulse Rate 93 H Pulse Rate [Right Finger] 90 Pulse Rate from SpO2 Sensor 95 H 75 Pulse Rhythm [Right Finger] Regular Pulse Strength [Right Finger] Normal Respiratory Rate 20 18 30 H Respiratory Effort / Characteristics Non-Labored Respiratory Depth Normal Respiratory Pattern Regular Blood Pressure 158/103 H 184/115 H Blood Pressure [Right Arm] 164/96 H Blood Pressure Mean 121 138 Blood Pressure Mean [Right Arm] 118 Blood Pressure Position [Right Arm] Sitting Pulse Oximetry 96 97 96 Oxygen Delivery Method Room Air Sepsis Recent Fever Within 48 Hours Sepsis New/Unexplained Change in Mental Status Sepsis Action Taken by Nursing 02/02/24 12:46 02/02/24 13:03 Temperature Temperature Source Pulse Rate 94 H 94 H Pulse Rate [Right Finger] Pulse Rate from SpO2 Sensor 103 H Pulse Rhythm [Right Finger] Pulse Strength [Right Finger] Respiratory Rate 16 Respiratory Effort / Characteristics Respiratory Depth Respiratory Pattern Blood Pressure 197/106 H Blood Pressure [Right Arm] Blood Pressure Mean 136 Blood Pressure Mean [Right Arm] Blood Pressure Position [Right Arm] Pulse Oximetry 99 Oxygen Delivery Method Sepsis Recent Fever Within 48 Hours Sepsis New/Unexplained Change in Mental Status Sepsis Action Taken by Nursing Laboratory Data Attestation: I reviewed the patient's lab results. 02/02/24 08:40 02/02/24 08:40 Lab Results 02/02/24 02/02/24 Range/Units 08:40 09:40 WBC 8.40 (4.8-10.8) K/ul RBC 4.46 (4.20-5.40) M/uL Hgb 13.8 (12.0-16.0) g/dl Hct 39.5 (37.0-47.0) % MCV 88.6 (80.0-100.0) fL MCH 30.9 (25.0-34.0) pg MCHC 34.9 (32.0-36.0) g/dL RDW Std Deviation 44.3 (36.4-46.3) fL RDW Coeff of Mari 13.5 (11.5-14.5) % Plt Count 252 (130-400) K/uL MPV 9.6 (9.4-12.4) fL Immature Gran % (Auto) 0.4 % Neut % (Auto) 64.4 % Lymph % (Auto) 20.2 % Hemphill % (Auto) 10.8 % Eos % (Auto) 3.5 % Baso % (Auto) 0.7 % Neut # (Auto) 5.41 (1.40-6.50) K/uL Lymph # (Auto) 1.70 (1.20-3.40) K/uL Hemphill # (Auto) 0.91 H (0.11-0.59) K/uL Eos # (Auto) 0.29 (0.00-0.50) K/uL Baso # (Auto) 0.06 (0.00-0.20) K/uL Immature Gran # (Auto) 0.03 (0.01-0.20) K/uL Sodium 141 (136-145) mmol/L Potassium 3.8 (3.5-5.1) mmol/L Chloride 103 (98-107) mmol/L Carbon Dioxide 30 (21-32) mmol/L Anion Gap 8 (3-11) BUN 26 H (6-23) mg/dl Creatinine 0.95 (0.6-1.2) mg/dl Est Cr Clr Drug Dosing 36.0 ml/min Est GFR ( Amer) 61.5 ml/min Est GFR (Non-Af Amer) 53.1 ml/min BUN/Creatinine Ratio 27.4 H (10-20) Glucose 105 H (70-99(Fasting)) mg/dl Calcium 10.3 (8.6-10.3) mg/dl Magnesium 1.8 (1.7-2.4) mg/dl Total Bilirubin 0.8 (0.2-1.0) mg/dl AST 13 (13-39) U/L ALT 9 (7-52) U/L Alkaline Phosphatase 76 (34-104) U/L Total Protein 6.4 (6.0-8.3) gm/dl Albumin 4.1 (3.4-5.0) gm/dl Globulin 2.3 L (2.5-4.0) gm/dl Albumin/Globulin Ratio 1.8 (0.9-2) Lipase 18 (11-82) U/L Urine Color Yellow Urine Appearance Clear (Clear) Urine pH 8.5 H (4.5-7.5) Ur Specific Hart[place]orn 1.007 (1.000-1.030) Urine Protein Trace H (Negative) Urine Glucose (UA) Negative (Negative) Urine Ketones Negative (Negative) Urine Blood Negative (Negative) Urine Nitrite Negative (Negative) Urine Bilirubin Negative (Negative) Urine Urobilinogen Negative (Negative) Ur Leukocyte Esterase 1+ H (Negative) Urine WBC (Auto) 0-5 (0-5) /hpf Urine RBC (Auto) 0-2 (0-2) /hpf U Hyaline Cast (Auto) 0-2 (0-2) /lpf U Epithel Cells (Auto) 0-2 (0-2) /hpf Urine Bacteria (Auto) None Seen (None Seen) Administered Medications Lactated Ringer's (Lr) 1,000 mls @ 125 mls/hr IV .Q8H JJ Stop: 03/03/24 14:59 Last Admin: 02/02/24 14:55 Dose: 125 mls/hr Documented By: CS Discontinued Medications Amoxicillin/Clavulanate Potassium (Amoxicillin/Clavulanate 875 Mg Tab) 1 tab PO NOW ONE; Protocol Stop: 02/02/24 11:52 Last Admin: 02/02/24 13:32 Dose: Not Given Documented By: [facility] Felodipine (Felodipine 5 Mg Tabcr) 10 mg PO ONE STA Stop: 02/02/24 12:58 Last Admin: 02/02/24 13:59 Dose: 10 mg Documented By: [facility] Sodium Chloride (Nss) 500 mls @ 999 mls/hr IV .Q31M STA Stop: 02/02/24 09:08 Last Infusion: 02/02/24 13:32 Dose: Infused Documented By: [facility] Admin: 02/02/24 10:03 Dose: 999 mls/hr Documented By: Acetaminophen (Ofirmev) 1,000 mg in 100 mls @ 400 mls/hr IV NOW STA Stop: 02/02/24 09:06 Last Infusion: 02/02/24 11:00 Dose: Infused Documented By: [facility] Admin: 02/02/24 10:03 Dose: 400 mls/hr Documented By: MR Ceftriaxone Sodium (Rocephin) 2,000 mg in 50 mls @ 100 mls/hr IV NOW STA Stop: 02/02/24 12:52 Last Infusion: 02/02/24 14:05 Dose: Infused Documented By: [facility] Admin: 02/02/24 13:21 Dose: 100 mls/hr Documented By: [facility] Metronidazole (Flagyl) 500 mg in 100 mls @ 100 mls/hr IV NOW STA; Protocol Stop: 02/02/24 13:22 Last Infusion: 02/02/24 14:51 Dose: Infused Documented By: Admin: 02/02/24 13:25 Dose: 100 mls/hr Documented By: [facility] Indapamide (Indapamide 1.25 Mg Tab) 1.25 mg PO ONE STA Stop: 02/02/24 12:58 Last Admin: 02/02/24 13:59 Dose: 1.25 mg Documented By: [facility] Ioversol (Optiray 320 100ml) 94 ml IV ONCE ONE Stop: 02/02/24 09:55 Last Admin: 02/02/24 09:54 Dose: 94 ml Documented By: GIL Labetalol HCl (Labetalol Hcl 100 Mg Tab) 100 mg PO NOW STA Stop: 02/02/24 12:58 Last Admin: 02/02/24 13:35 Dose: 100 mg Documented By: [facility] Losartan Potassium (Losartan Potassium 50 Mg Tab) 100 mg PO ONE STA Stop: 02/02/24 13:29 Last Admin: 02/02/24 13:58 Dose: 100 mg Documented By: [facility] Metoprolol Tartrate (Metoprolol Tartrate 50 Mg Tab) 50 mg PO NOW STA Stop: 02/02/24 12:58 Last Admin: 02/02/24 13:36 Dose: 50 mg Documented By: [facility] Imaging Data Radiologist's Impression: Abdomen/Pelvis CT 02/02/24 08:[address] WITH IV CONTRAST CT DOSE: 1023.07 mGy.cm HISTORY: LLQ abd pain TECHNIQUE: Multiaxial CT images of the abdomen and pelvis were performed following the use of intravenous contrast. A dose lowering technique was utilized adhering to the principles of ALARA. COMPARISON STUDY: Abdomen and pelvis CT 01/26/2022. FINDINGS: Mild dependent changes seen within the lung bases. There is a left- sided fat-containing Bochdalek hernia, unchanged. No pneumoperitoneum. No pneumatosis. No acute fractures. The heart remains enlarged. There is a small hiatus hernia. Mild motion artifact results in suboptimal evaluation of the abdominal structures. Gastrohepatic calcifications remain stable. No hepatic or splenic masses. The adrenal glands, gallbladder, and pancreas appear unremarkable. No hydronephrosis. Calcified plaque within the normal caliber abdominal aorta. No retroperitoneal or pelvic lymphadenopathy. Trace pelvic free fluid. Normal bladder. The uterus and left adnexa are unremarkable. Stable 3.5 cm simple cyst within the right adnexa/ovary. Extensive colonic diverticulosis. Focal thickening and mild pericolonic fat stranding within the proximal sigmoid colon consistent with an acute diverticulitis. No perforation or abscess at this time. Thickening within the mid to distal sigmoid colon favors muscular hypertrophy. No evidence for a bowel obstruction. IMPRESSION: 1. Mild acute sigmoid diverticulitis. No perforation or abscess. 2. Trace pelvic free fluid. 3. No evidence for a bowel obstruction. 4. Cardiomegaly, unchanged. 5. Additional stable findings as described above. ACT 112: Negative or not required by law. Electronically signed by: Jesse Elliott M.D. 02/02/2024 10:20 AM Discharge Plan Visit Data Chief Complaint: Abdominal Pain Stated Complaint: AB PAIN ED Provider: Herson Castaneda Discharge Problem: Diverticulitis, Left lower quadrant abdominal pain Patient Disposition: Home - Self-Care Discharge Instructions Interventions: ED Discharge Assessment Last Done: 02/02/24 14:25
[2024-02-02 08:57] LABS: Basophils # (auto) 0.06 K/uL (0.00-0.20); Basophils % (auto) 0.7 %; Eosinophils # (auto) 0.29 K/uL (0.00-0.50); Eosinophils % (auto) 3.5 %; Hematocrit (blood only) 39.5 % (37.0-47.0); Hemoglobin 13.8 g/dl (12.0-16.0); Immature Granulocytes # (auto) 0.03 K/uL (0.01-0.20); Immature Granulocytes % (auto) 0.4 %; Lymphocytes % (auto) 20.2 %; Mean Corpuscular Hemoglobin 30.9 pg (25.0-34.0); Mean Corpuscular Hgb Conc 34.9 g/dL (32.0-36.0); Mean Corpuscular Volume 88.6 fL (80.0-100.0); Mean Platelet Volume 9.6 fL (9.4-12.4); Monocytes # (auto) 0.91 K/uL (0.11-0.59); Monocytes % (auto) 10.8 %; Neutrophils # (auto) 5.41 K/uL (1.40-6.50); Neutrophils % (auto) 64.4 %; Platelet Count 252 K/uL (130-400); RDW Coefficient of Variation 13.5 % (11.5-14.5); RDW Standard Deviation 44.3 fL (36.4-46.3); Red Blood Count 4.46 M/uL (4.20-5.40)
--- OUTSIDE RECORDS SUMMARY | 2024-02-02 09:11 | External Medical Summary | Continuity of Care Document ---
Author Name Unknown Organization [facility] [address] [place] [address] Address [address] [facility] [place], [place] [id number] Care Team Providers Care Garment Mender Name Role Phone Tracie Rush Primary Care Physician [phone] Encounter [facility] [id number] Date(s): 09/21/23 - 09/21/[address] [facility] [address] [facility], [address] [place] [address] [phone] Encounter Diagnosis B12 deficiency(Discharge Diagnosis) - 09/21/23 HTN (hypertension)(Discharge Diagnosis) - 09/21/23 Discharge Disposition: Home or Self Care Attending Physician: DO Rush Kristen M Referring Physician: DO Rush Kristen M Allergies, Adverse Reactions, Alerts Substance Reaction Severity Status penicillins hives Active Cipro weakness Active Mobic severe leg swelling Active Flagyl weakness Active Avelox weakness Active Assessment and Plan Extracted from: Title:Office Visit Note Author:DO Rush Kriste n M Date:09/21/23 1.B12 deficiency Chronic condition, stable Goal:Resolution Data:unique tests ordered: _ Plan: _shot today 2.HTN (hypertension) Chronic condition, stable Goal:Resolution Data:unique tests ordered: _ Plan: _well controlled Immunizations Given and Recorded Vaccine Date Status Refusal Reason influenza virus vaccine, inactivated 03/04/23 Julio Cesar rded influenza virus vaccine, inactivated 02/07/22 Give n influenza virus vaccine, inactivated 05/30/21 Julio Cesar rded influenza virus vaccine, inactivated 02/25/19 Give n influenza virus vaccine, inactivated 03/13/18 Give n influenza virus vaccine, inactivated 02/07/17 Give n influenza virus vaccine, inactivated 03/24/16 Give n influenza virus vaccine, inactivated 03/19/15 Give n SARS-CoV-2 mRNA-1273 (6y+ bivalent) 1 03/07/22 Rec orded SARS-CoV-2 (COVID-19) mRNA-1273 vaccine 2 04/09/21 Recorded SARS-CoV-2 (COVID-19) mRNA-1273 vaccine 08/04/20 R ecorded SARS-CoV-2 (COVID-19) mRNA-1273 vaccine 07/07/20 R ecorded 1Result Comment: 2022-03-24: Historical information-source unspecified 2Result Comment: 2021-06-03: Historical information-source unspecified Medications Caltrate 600 + D Start: 11/27/14 19:34:00, 1 tab, PO, Daily Start Date: 11/27/14 Status: Ordered Daily Digestive 5X Probiotic Start: 09/15/22 14:34:00 EDT Start Date: 09/15/22 Status: Ordered felodipine 10 mg oral tablet, extended release Start: 06/05/23 18:56:00 EST, See Instructions, Disp# 90 tab, Refills: 3, TAKE 1 TABLET DAILY, Pharmacy: [facility] Start Date: 06/05/23 Status: Ordered indapamide 1.25 mg oral tablet Start: 03/20/23 12:01:00 EDT, 1 tab, PO, qAM, Disp# 90 tab, Refills: 3, [facility]acy: [facility] Start Date: 03/20/23 Status: Ordered irbesartan 300 mg oral tablet Start: 03/20/23 12:01:00 EDT, 1 tab, PO, Daily, Disp# 90 tab, Refills: 3, Pharmacy: [facility] Start Date: 03/20/23 Status: Ordered labetalol 100 mg oral tablet Start: 10/08/21 12:59:00 EDT, 1 tab, PO, bid Start Date: 10/08/21 Status: Ordered Metoprolol Tartrate 100 mg oral tablet Start: 01/26/21 12:43:00 EDT, See Instructions, Disp# 180 tab, Refills: 3, TAKE 1 TABLET TWICE A DAY, Pharmacy: [facility] Start Date: 01/26/21 Status: Ordered traZODone 50 mg oral tablet Start: 01/23/23 16:20:00 EDT, See Instructions, Disp# 90 tab, Refills: 3, TAKE 1 TABLET AT BEDTIME,Pharmacy: [facility] Start Date: 01/23/23 Status: Ordered triamcinolone 0.1% topical cream Start: 03/16/20 14:49:00 EDT, 1 appl, topical, bid, Disp# 60 g, Refills: 3, Pharmacy: [facility] Start Date: 03/16/20 Status: Ordered Tylenol Start: 07/26/15 11:54:00, PRN Start Date: 07/26/15 Status: Ordered Vitamin D3 2000 intl units oral tablet Start: 10/02/15 10:46:00, 1 tab, PO, Daily, Disp# 30 tab, Refills: 0, Pharmacy: [address] Start Date: 10/02/15 Status: Ordered Mental Status 09/21/23 Barriers to Learning one year None evide nt Mandatory Health Literacy Documentation Yes Health Literacy Communication Barriers N ever Primary Language South African Problem List Condition Confirmation Course Effective Dates Status H ealth Status Informant B12 deficiency Confirmed Active Constipation Confirmed Active Diverticulosis Confirmed Active Diverticulitis Confirmed Active Enteritis Confirmed Active Serum calcium elevated Confirmed Active HTN (hypertension) Confirmed Active Right knee DJD Confirmed Active Knee pain Confirmed Active Medicare annual wellness visit, subsequent Confirmed Active Weight disorder Confirmed Active Weight loss Confirmed Active Diagnosis Diagnosis Type Effective Dates Health Status Clinical Service Informant B12 deficiency Discharge Diagnosis 09/21/23 HTN (hypertension) Discharge Diagnosis 09/21/23 Procedures Procedure Date Related Diagnosis Body Site Status CT of abdomen and pelvis 1 01/19/18 Completed Colonoscopy 2 05/03/[address] of abdomen and pelvis 3 03/14/17 Completed Bilateral cataracts 4 Com pleted Bowel obstruction Complet ed section 5 Comple sanjay Laminectomy 6 Completed Uterine fibroidectomy Com pleted 1Colonic diverticulosis with chronic wall thickening of the sigmoid colon. No definite evidence of acute diverticulitis. No bowel obstruction or pneumonperitoneum. 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 Additional findings as above. 2diverticulosis 31. There is advanced colonic diverticulosis with evidence of mild acute sigmoid diverticulitis. No intraperitoneal free air is seen and there is no evidence of diverticular abscess. 2. Cardiomegaly. 3. Additional findings as above. 4Bilateral cataract removal 07/30/15 & 08/19/[address] Carmichael 5x 2 6lowe lumbar Vital Signs Most recent to oldest [Reference Range]: 1 Patient Weight 70.7 kg (09/21/23 3:25 PM) Temperature [36.5-37.9 DegC] 36.7 DegC (09/21/23 3:25 PM) Blood Pressure 118/70mmHg (09/21/23 3:25 PM) Social History Social History Type Response Tobacco Cigarettes, 2 year(s ). Started age 19 Years. Stopped age 21 Years. 1 Smoking Status Never smoked cigaret lori Sex Female 1Socially FCM Outpt Note * DO Rush Kristen M: PERFORM Event Display: FCM Outpt Note Authored Date: Chief Complaint Pt here for 6 mo check. Doing well. Would like B12 shot History of Present Illness Pt presents for her 6 month check. Doing well, she would like a B12 shot. Physical Exam Vitals & Measurements T:36.7C BP:118/70 SpO2:96% WT:70.700kg(Dosing) WT:70.7kg PHQ2 Data(Data Documented on:09/21/2023 15:25) Emotional health assessment NEGATIVE G: AAAOx3, NAD H: RR normal S1/S2 no M/R/G L: CTA b/l no r/r/w HEENT: external ear canal and TM wnl, oral mucosa moist, no lymphadenopathy A: soft +bs nt nd E: no c/C/E b/l, pos distal pulses P: normal affect and insight, no homicidal/suicidal ideation Assessment/Plan 1.B12 deficiency Chronic condition, stable Goal:Resolution Data:unique tests ordered: _ Plan: _shot today 2.HTN (hypertension) Chronic condition, stable Goal:Resolution Data:unique tests ordered: _ Plan: _well controlled Attestation I spent4 mintime in previsit planning including prepping note and chart review . I spent27 time in face to face interaction with patient concerning the issues that brought them in today. I spent4 min time in post visit planning including finishing note and depart process Total time spent today on patient visit35 min Problem List/Past Medical History Ongoing B12 deficiency Constipation Diverticulitis Diverticulosis Enteritis HTN (hypertension) Knee pain Medicare annual wellness visit, subsequent Right knee DJD Serum calcium elevated Weight disorder Weight loss Historical Acute sinus infection Bakers cyst Chondrocalcinosis Greater trochanteric bursitis H/O small bowel obstruction Hyponatremia IT band syndrome Pelvic pain Pes anserine bursitis Right knee pain Sigmoid diverticulitis Procedure/Surgical History CT of abdomen and pelvis| Service Date: 01/19/2018Colonoscopy| Service Date: 05/03/2017CT of abdomen and pelvis| Service Date: 03/14/2017Bilateral cataractsLaminectomyBowel obstructionUterine fibroidectomyCesarean section Medications acetaminophen(Tylenol) bifidobacterium-lactobacillus(Daily Digestive 5X Probiotic) calcium-vitamin D(Caltrate 600 + D), 1 tab, PO, Daily cholecalciferol(Vitamin D3 2000 intl units oral tablet), 2000 Int_Unit= 1 tab, PO, Daily felodipine(felodipine 10 mg oral tablet, extended release), See Instructions, 3 refills indapamide(indapamide 1.25 mg oral tablet), 1 tab, PO, qAM irbesartan(irbesartan 300 mg oral tablet), 1 tab, PO, Daily labetalol(labetalol 100 mg oral tablet), 100 mg= 1 tab, PO, bid metoprolol(Metoprolol Tartrate 100 mg oral tablet), See Instructions, 3 refills traZODone(traZODone 50 mg oral tablet), See Instructions, 3 refills triamcinolone topical(triamcinolone 0.1% topical cream), 1 appl, topical, bid, 3 refills Allergies Aveloxweakness Ciproweakness Flagylweakness Mobicsevere leg swelling penicillinshives Social History Smoking Status Never smoked cigarettes Alcohol Type:Wine Frequency:1-2 times per year Home/Environment Lives with:Alone Living situation:Home/Independent Feels unsafe at home:No Other risks in environment:Pool/Duong Tobacco Type:Cigarettes Number of years:2 Started at age:19Years Stopped at age:21Years - Comments: Socially Family History Asthma: Brother. Bladder cancer: Brother. Brain tumor...: Father. Breast cancer: Sister. COPD: Brother. Hypertension: Mother. Kidney tumor...: Sister. Melanoma in situ of skin: Brother. Rheumatoid arthritis: Sister. Health Status Family Member(s) Immunizations Vaccine Date Status influenza virus vaccine, inactivated 03/04/2023 Recorded SARS-CoV-2 mRNA-1273 (6y+ bivalent) 03/07/2022 Recorded Comments : 2022-03-24: Historical information-source unspecified influenza virus vaccine, inactivated 02/07/2022 Given influenza virus vaccine, inactivated 05/30/2021 Recorded SARS-CoV-2 (COVID-19) mRNA-1273 vaccine 04/09/2021 Recorded Comments : 2021-06-03: Historical information-source unspecified SARS-CoV-2 (COVID-19) mRNA-1273 vaccine 08/04/2020 Recorded SARS-CoV-2 (COVID-19) mRNA-1273 vaccine 07/07/2020 Recorded influenza virus vaccine, inactivated 02/25/2019 Given influenza virus vaccine, inactivated 03/13/2018 Given influenza virus vaccine, inactivated 02/07/2017 Given influenza virus vaccine, inactivated 03/24/2016 Given influenza virus vaccine, inactivated 03/19/2015 Given Recommendations Health Maintenance Pending(in the next year) OverDue Body Mass Index due01/04/23and every 366day Medicare Annual Wellness Visit due02/07/23and every 1year Due Adult COVID-19 Vaccination due09/21/23Unknown Frequency Adult Social Determinants of Health Screening due09/21/23Unknown Frequency Adult Tdap/Td Vaccine due09/21/23Unknown Frequency Pneumococcal Vaccine Older Adults due09/21/23One-time only Shingles Vaccine due09/21/23One-time only Due In Future Adult Influenza Vaccine not due until11/26/23and every 1year Satisfied(in the past 1 year) Satisfied Adult Influenza Vaccine on03/04/23.Satisfied by JONAS Andre Carli Electronic Signature on File Electronically Reviewed/Signed by: Tracie Rush DO Author Signature Dt/Tm:09/21/2023 04:20 PM Department of [facility] Patient Care team information Care Team Personnel Name: DO Rush Kristen M Position: Physician - Family Med Member Role: Primary Care Provider Address: Address: [address] [place] [address], [place] [address] [place] Care Team Related Persons Name: OLVIN GLASS Address: home [address] [place] [phone]"
[2024-02-02 09:28] LABS: Albumin Globulin Ratio 1.8 (0.9-2); Albumin Level 4.1 gm/dl (3.4-5.0); BUN Creatinine Ratio 27.4 (10-20); Bilirubin,Total 0.8 mg/dl (0.2-1.0); Calcium 10.3 mg/dl (8.6-10.3); Est GFR (African American) 61.5 ml/min; Est GFR (Non-African American) 53.1 ml/min; Globulin 2.3 gm/dl (2.5-4.0); Potassium 3.8 mmol/L (3.5-5.1); Total Protein 6.4 gm/dl (6.0-8.3)
[2024-02-02] MEDS: OPTIRAY 320 100ml IV ONE (09:54)
[2024-02-02] MEDS: SODIUM CHLORIDE 0.9% 500 ML IV STA (10:03)
[2024-02-02] MEDS: ACETAMINOPHEN 1,000 MG/100 ML VIAL IV STA (10:03)
--- NOTE | 2024-02-02 10:22 | CT Scan Report ---
ABDOMEN AND PELVIS CT WITH IV CONTRAST CT DOSE: 1023.07 mGy.cm HISTORY: LLQ abd pain TECHNIQUE: Multiaxial CT images of the abdomen and pelvis were performed following the use of intrave nous contrast. A dose lowering technique was utilized adhering to the principles of ALARA. COMPARISON STUDY: Abdomen and pelvis CT 01/26/2022. FINDINGS: Mild dependent changes seen within the lung bases. There is a left-sided fat-containing Boc hdalek hernia, unchanged. No pneumoperitoneum. No pneumatosis. No acute fractures. The heart remains enlarged. There is a small hiatus hernia. Mild motion artifact results in suboptimal evaluation of th e abdominal structures. Gastrohepatic calcifications remain stable. No hepatic or splenic masses. The adrenal glands, gallbladder, and pancreas appear unremarkable. No hydronephrosis. Calcified plaque w ithin the normal caliber abdominal aorta. No retroperitoneal or pelvic lymphadenopathy. Trace pelvic free fluid. Normal bladder. The uterus and left adnexa are unremarkable. Stable 3.5 cm simple cyst wi thin the right adnexa/ovary. Extensive colonic diverticulosis. Focal thickening and mild pericolonic fat stranding within the proximal sigmoid colon consistent with an acute diverticulitis. No perforati on or abscess at this time. Thickening within the mid to distal sigmoid colon favors muscular hypertr ophy. No evidence for a bowel obstruction. IMPRESSION: 1. Mild acute sigmoid diverticulitis. No perforation or abscess. 2. Trace pelvic free fluid. 3. No evidence for a bowel obstruction. 4. Cardiomegaly, unchanged. 5. Additional stable findings as described above. ACT 112: Negative or not required by law. Electronically signed by: Jesse Elliott M.D. 02/02/2024 10:20 AM
[2024-02-02 10:23] LABS: Appearance Urine Clear (Clear); Bacteria Urine Automated None Seen (None Seen); Bilirubin Urine Negative (Negative); Blood Urine Negative (Negative); Cast Urine Automated 0-2 /lpf (0-2); Color Urine Yellow; Epithelial Cell Urine Auto 0-2 /hpf (0-2); Glucose Urine UA Negative (Negative); Ketones Urine Negative (Negative); Leukocyte Esterase Urine 1+ (Negative); Nitrite Urine Negative (Negative); Protein Urine Trace (Negative); RBC Urine Automated 0-2 /hpf (0-2); Specific Gravity Urine 1.007 (1.000-1.030); Urobilinogen Urine Negative (Negative); WBC Urine Automated 0-5 /hpf (0-5); pH Urine 8.5 (4.5-7.5)
--- NOTE | 2024-02-02 12:45 | History & Physical Report ---
Date of Service February 02, 2024 Assessment & Plan (1) Diverticulitis: Plan: Initial plan for discharge from ER given uncomplicated diverticulitis but patient has history of perforation, advanced age, lives alone and intolerance to prior antibiotics, therefore plan to admit for IV antibiotics initially and recommend transition to oral Augmentin as inpatient (she has previously tolerated Augmentin but not PO metronidazole) IV Ceftriaxone + metronidazole NPO (except ice chips and sips), IV fluids (2) HTN (hypertension): Plan: Hypertensive urgency in the ER due to missing her morning medications and pain Resume her usual metoprolol, labetalol, indapamide, felodipine, irbesartan Plan VTE prophylaxis - Lovenox 40 mg subcu daily Diet - n.p.o. [facility]position [facility] Admission and Anticipated Discharge Date Admission Date: February 02, 2024 History of Present Illness Chief Complaint: Left lower quadrant abdominal pain Primary Care Provider: Tracie Rush DO Lauren Ho is an 88 year old female who presents to the ER with sudden onset left lower quadrant pain that started this morning. She reports multiple prior episodes of diverticulitis some of which have been mild and managed at home with a liquid diet but she has also had bowel perforation and abscess requiring extensive and prolonged inpatient admission. This occasion the pain was severe in left lower quadrant, severity 10/10, no radiation, woke her up this morning. No nausea, vomiting, heartburn, melena, hematochezia or change in bowel movements. She lives alone and given her history of perforation and abscess she is very concerned about going home given she continues to be in pain. Allergies Allergy/AdvReac Type Severity Reaction Status Date / Time ciprofloxacin AdvReac Severe "MADE ME Unverified 12/19/21 21:02 DEATHLY ILL" lisinopril AdvReac Intermediate Weakness Verified 12/19/21 21:02 Home Medications Medication Instructions Recorded Confirmed Type calcium carbonate 600 mg-vitamin 1 tab PO PM 08/04/18 02/02/24 History D3 20 mcg (800 unit) chewable tablet (Caltrate 600 plus D) cholecalciferol (vitamin D3) 50 2,000 unit PO QAM 08/04/18 02/02/24 History mcg (2,000 unit) tablet (Vitamin D3) felodipine 10 mg tablet,extended 10 mg PO QAM 08/04/18 02/02/24 History release 24 hr indapamide 1.25 mg tablet 1.25 mg PO QAM 08/04/18 02/02/24 History irbesartan 300 mg tablet 300 mg PO QAM 08/04/18 02/02/24 History trazodone 50 mg tablet 50 mg PO HS 08/04/18 02/02/24 History acetaminophen 650 mg 650 - 1,300 mg PO Q12H PRN Pain 02/18/21 02/02/24 History tablet,extended release lactobacillus combination no.4 3 0 mmu cells PO DAILY 02/18/21 02/02/24 History billion cell capsule (Probiotic) labetalol 100 mg tablet 100 mg PO BID #180 tabs 09/26/23 02/02/24 Rx metoprolol tartrate 50 mg tablet 50 mg PO BID #180 tabs 09/26/23 02/02/24 Rx Past Med/Surg History Problem List (Updated 02/03/24 @ 00:15 by Pacheco Ash MD) Left lower quadrant abdominal pain (Acute) Diverticulitis (Acute) Low vitamin B12 level Impaired taste HTN (hypertension) (Chronic) Leaky heart valve Fibromyalgia Osteoarthritis of knees, bilateral Chronic kidney disease, stage 3a Cardiomyopathy Protein calorie malnutrition Asymptomatic bacteriuria Weakness Heart palpitations (Acute) PAC (premature atrial contraction) (Acute) Moderate to severe mitral regurgitation Mild aortic regurgitation with left ventricular systolic dysfunction by prior echocardiogram Insomnia Nausea (Acute) Medical History (Updated 02/03/24 @ 00:15 by Pacheco Ash MD) Diverticulitis of intestine with perforation and abscess Abdominal abscess Abdominal pain Sigmoid diverticulitis Diverticulitis Abdominal pain, LLQ (left lower quadrant) Diverticulitis of intestine with abscess without bleeding Elevated troponin Hypokalemia Diverticulitis Abdominal pain Diverticulitis Abdominal pain Valvular heart disease Hypokalemia Hypomagnesemia Hyponatremia Small bowel obstruction Diverticulitis Surgical History H/O exploratory laparotomy SBO in . History of laminectomy History of laparoscopy to remove fibroid tumor in uterus History of section x2 History of appendectomy Family History Other No pertinent family history Denies family history of Myocardial infarction Stroke Social History Smoking Status: Never smoker Second Hand Exposure: No; Do You Dip or Chew Tobacco: No; Hx Alcohol Use: No Hx Substance Use: No Preferred Language: Togolese Communication Ability: Effective Lens Edge Grinder Machine Required: No Beliefs That Will Affect Care: None marital status: / Current Living Situation: Alone Current Living Situation Comment: Pt lives alone in [facility] How many Children do You have: 1 Other Information That Helps Us Care for You: No Feels Safe at Home: Yes Assistive Devices: Denture - Upper, Glasses, Hearing Aid - Left, Hearing Aid - Right and Walker Review of Systems Review of Systems: All systems reviewed & are unremarkable except as noted in HPI & below Physical Exam Constitutional: WD/WN, vitals as above ENMT: external ear and nose normal, oropharynx normal Respiratory: normal respiratory effort, lungs clear to auscultation Cardiovascular: RRR, no murmur, no edema Gastrointestinal (Abdomen): Percussion/Palpation: + abdomen tender (LLQ and suprapubic pain) and abdomen soft; no guarding and abdomen not rigid Skin: no rashes, warm and dry Neurologic: moves all extremities and awake; not confused Psychiatric: Orientation: alert Affect: + anxious affect Results & Data Results & Data Vital Signs (Past 12 Hours) Vital Signs Temp Pulse Pulse Resp BP BP Pulse Ox 02/02/24 11:03 90 18 164/96 H 97 02/02/24 10:30 20 158/103 H 96 02/02/24 10:03 91 H 18 165/104 H 94 02/02/24 08:49 88 02/02/24 08:38 36.4 C L 88 20 180/110 H 96 O2 Del Method 02/02/24 11:03 Room Air 02/02/24 10:30 02/02/24 10:03 02/02/24 08:49 02/02/24 08:38 Room Air Laboratory Results Abnormal lab results 02/02/24 02/02/24 Range/Units 08:40 09:40 [place] # (Auto) 0.91 H (0.11-0.59) K/uL BUN 26 H (6-23) mg/dl BUN/Creatinine Ratio 27.4 H (10-20) Glucose 105 H (70-99(Fasting)) mg/dl Globulin 2.3 L (2.5-4.0) gm/dl Urine pH 8.5 H (4.5-7.5) Urine Protein Trace H (Negative) Ur Leukocyte Esterase 1+ H (Negative) Diagnostic Findings ABDOMEN AND PELVIS CT WITH IV CONTRAST CT DOSE: 1023.07 mGy.cm HISTORY: LLQ abd pain TECHNIQUE: Multiaxial CT images of the abdomen and pelvis were performed following the use of intravenous contrast. A dose lowering technique was utilized adhering to the principles of ALARA. COMPARISON STUDY: Abdomen and pelvis CT 01/26/2022. FINDINGS: Mild dependent changes seen within the lung bases. There is a left- sided fat-containing Bochdalek hernia, unchanged. No pneumoperitoneum. No pneumatosis. No acute fractures. The heart remains enlarged. There is a small hiatus hernia. Mild motion artifact results in suboptimal evaluation of the abdominal structures. Gastrohepatic calcifications remain stable. No hepatic or splenic masses. The adrenal glands, gallbladder, and pancreas appear unremarkable. No hydronephrosis. Calcified plaque within the normal caliber abdominal aorta. No retroperitoneal or pelvic lymphadenopathy. Trace pelvic free fluid. Normal bladder. The uterus and left adnexa are unremarkable. Stable 3.5 cm simple cyst within the right adnexa/ovary. Extensive colonic diverticulosis. Focal thickening and mild pericolonic fat stranding within the proximal sigmoid colon consistent with an acute diverticulitis. No perforation or abscess at this time. Thickening within the mid to distal sigmoid colon favors muscular hypertrophy. No evidence for a bowel obstruction. IMPRESSION: 1. Mild acute sigmoid diverticulitis. No perforation or abscess. 2. Trace pelvic free fluid. 3. No evidence for a bowel obstruction. 4. Cardiomegaly, unchanged. 5. Additional stable findings as described above. Medications Administered ER Medications Given: Ceftriaxone 2000 mg IV Metronidazole 500 mg IV Code Status & VTE Plan Code Status DNR/DNI VTE Prophylaxis Plan VTE Prophylaxis will be ordered: Yes PG Care Time/CCT Total # of Minutes Spent Total Time Spent with Patient: Total time spent is greater than 50% in coordination of care (as documented) at patient's floor/unit and/or counseling patient: Coding Level of Care Code 08579 INT INP/OBS CARE 2/55MIN Diagnoses Diverticulitis K57.92 Essential hypertension I10 Hypertension type: essential hypertension (2) HTN (hypertension) Hypertension type: essential hypertension Qualified Code(s): I10 - Essential (primary) hypertension
[2024-02-02 13:21] LABS: Magnesium 1.8 mg/dl (1.7-2.4)
[2024-02-02] MEDS: cefTRIAXone SODIUM 2,000 MG/50 ML BAG IV STA (13:21)
[2024-02-02] MEDS: metroNIDAZOLE 500 MG/100 ML BAG IV STA (13:25)
[2024-02-02] MEDS: AMOXICILLIN/CLAVULANATE 875 MG TAB PO ONE (13:32)
[2024-02-02] MEDS: LABETALOL HCL 100 MG TAB PO STA (13:35)
[2024-02-02] MEDS: METOPROLOL TARTRATE 50 MG TAB PO STA (13:36)
[2024-02-02] MEDS: LOSARTAN POTASSIUM 50 MG TAB PO STA (13:58)
[2024-02-02] MEDS: FELODIPINE 5 MG TABCR PO STA (13:59)
[2024-02-02] MEDS: INDAPAMIDE 1.25 MG TAB PO STA (13:59)
[2024-02-02] MEDS: LACTATED RINGER'S 1,000 ML IV SCH (14:55)
[2024-02-02] MEDS: ENOXAPARIN INJ 40 MG/0.4 ML SYR SQ SCH (20:28)
[2024-02-02] MEDS: LABETALOL HCL 100 MG TAB PO SCH (20:29)
[2024-02-02] MEDS: METOPROLOL TARTRATE 50 MG TAB PO SCH (20:30)
[2024-02-02] MEDS: traZODone HCL 50 MG TAB PO SCH (20:30)
[2024-02-02] MEDS: metroNIDAZOLE 500 MG/100 ML BAG IV SCH (20:33)
[2024-02-02] MEDS: ACETAMINOPHEN 1,000 MG/100 ML VIAL IV PRN (23:29)
[2024-02-03] MEDS ORDERED: MoRPHine SULFATE 2 MG/ML CARP IV PRN ×2 (00:09)
--- NOTE | 2024-02-03 07:57 | Hospitalist Progress Note ---
Date of Service February 03, 2024 Assessment & Plan (1) Diverticulitis: Plan: acute on chronic diverticulitis - WBCs, Hbg and electrolytes stable - per CT abdomen/pelvis, exam, labs, and regular bowel movement, no concern for bowel re-perforation at this time - has been receiving IV Ceftriaxone + metronidazole as well as LR at 100cc/hr - 02/03/24: transitioned from NPO to full liquids to regular heart healthy diet - plan to transition to PO Augmentin on 02/04/24 - plan to d/c IV fluids once current LR drip is complete (2) HTN (hypertension): Plan: Hypertensive urgency in the ER due to missing her morning medications and pain, has since resolved continuing her home doses of metoprolol 50mg, labetalol 100mg, indapamide 1.25mg, felodipine 10mg, irbesartan 300mg Admission and Anticipated Discharge Date Admission Date: February 02, 2024 Supervising Physician Co-Signing Physician Notes I personally examined the patient and verified bravo points of history and exam, discussed case, and agree with decision making and plan documented by Dr. Clarke. Patient reports large bowel movement earlier this morning, no blood or pain reported. Will advance diet slowly as patient hungry. Will continue on IV antibiotics and transition to Augmentin p.o. tomorrow. Subjective Patient was seen and examined at bedside this morning, feeling better than day prior. Notably had a regular bowel movement overnight, no blood seen, nausea, or vomiting at that time or currently. Notes minor abdominal pain and swelling but notes it has been getting better. Patient expresses that she has been hungry since she has been NPO, diet changed to full liquids. Review of Systems Review of Systems: All systems reviewed & are unremarkable except as noted in HPI & below Physical Exam Constitutional: WD/WN, vitals as above well developed and well nourished Eyes: PERRL, conjunctivae normal, anicteric sclerae Respiratory: normal respiratory effort, lungs clear to auscultation Cardiovascular: Rate/Rhythm: regular rate and regular rhythm Gastrointestinal (Abdomen): Inspection/Auscultation: + abdomen distended Percussion/Palpation: + abdomen tender and abdomen soft abdomen soft but generalized swelling, not tense or hard to palpation, no gu arding tender to palpation particularly in LLQ and suprapubic region Musculoskeletal: no cyanosis or clubbing, extremities motor strength 5/5 Skin: no rashes, warm and dry Results & Data Results & Data Vital Signs (Past 12 Hours) Vital Signs Temp Pulse Resp BP Pulse Ox O2 Del Method 02/03/24 07:07 36.6 C 79 18 163/83 H 94 Room Air Resident Activity Tracking Resident Involvement: Resident Care Provided Care Provided: Adult Hospital Medicine (2) HTN (hypertension) Hypertension type: essential hypertension Qualified Code(s): I10 - Essential (primary) hypertension
[2024-02-03] MEDS: INDAPAMIDE 1.25 MG TAB PO SCH (08:50)
[2024-02-03] MEDS: FELODIPINE 5 MG TABCR PO SCH (08:50)
[2024-02-03] MEDS: LOSARTAN POTASSIUM 50 MG TAB PO SCH (08:51)
[2024-02-03 08:55] LABS: Basophils # (auto) 0.07 K/uL (0.00-0.20); Basophils % (auto) 1.1 %; Eosinophils # (auto) 0.29 K/uL (0.00-0.50); Eosinophils % (auto) 4.7 %; Hematocrit (blood only) 38.2 % (37.0-47.0); Hemoglobin 13.2 g/dl (12.0-16.0); Immature Granulocytes # (auto) 0.02 K/uL (0.01-0.20); Immature Granulocytes % (auto) 0.3 %; Lymphocytes # (auto) 0.98 K/uL (1.20-3.40); Mean Corpuscular Hemoglobin 30.8 pg (25.0-34.0); Mean Corpuscular Hgb Conc 34.6 g/dL (32.0-36.0); Mean Platelet Volume 9.9 fL (9.4-12.4); Monocytes # (auto) 0.72 K/uL (0.11-0.59); Monocytes % (auto) 11.8 %; Neutrophils # (auto) 4.04 K/uL (1.40-6.50); Neutrophils % (auto) 66.1 %; Platelet Count 242 K/uL (130-400); RDW Coefficient of Variation 13.8 % (11.5-14.5); RDW Standard Deviation 44.8 fL (36.4-46.3); Red Blood Count 4.29 M/uL (4.20-5.40); White Blood Count 6.12 K/ul (4.8-10.8)
[2024-02-03 09:13] LABS: Albumin Level 3.6 gm/dl (3.4-5.0); BUN Creatinine Ratio 21.3 (10-20); Bilirubin Direct 0.1 mg/dl (0-0.2); Bilirubin,Total 0.7 mg/dl (0.2-1.0); C Reactive Protein 1.21 mg/dl (0-0.5); Creatinine Clr Calc Pharmacy 38.4 ml/min; Est GFR (African American) 62.3 ml/min; Est GFR (Non-African American) 53.8 ml/min; Potassium 3.4 mmol/L (3.5-5.1); Total Protein 5.6 gm/dl (6.0-8.3)
[2024-02-03] MEDS: cefTRIAXone SODIUM 2,000 MG/50 ML BAG IV SCH (12:54)
--- NOTE | 2024-02-04 06:43 | Hospitalist Progress Note ---
Date of Service February 04, 2024 Assessment & Plan (1) Diverticulitis: Plan: acute on chronic diverticulitis - WBCs, Hbg and electrolytes stable - per CT abdomen/pelvis, exam, labs, and regular bowel movement, no concern for bowel re-perforation at this time - has been receiving IV Ceftriaxone + metronidazole as well as LR at 100cc/hr - 02/03/24: transitioned from NPO to full liquids to regular heart healthy diet - plan to transition to PO Augmentin on 02/04/24 - plan to d/c IV fluids once current LR drip is complete (2) HTN (hypertension): Plan: Hypertensive urgency in the ER due to missing her morning medications and pain, has since resolved continuing her home doses of metoprolol 50mg, labetalol 100mg, indapamide 1.25mg, felodipine 10mg, irbesartan 300mg Admission and Anticipated Discharge Date Admission Date: February 02, 2024 Subjective Patient was seen and examined at bedside this morning, feeling better than day prior. Notably had a regular bowel movement overnight, no blood seen, nausea, or vomiting at that time or currently. Notes minor abdominal pain and swelling but notes it has been getting better. Patient expresses that she has been hungry since she has been NPO, diet changed to full liquids. Results & Data Results & Data Vital Signs (Past 12 Hours) Vital Signs Temp Pulse Resp BP Pulse Ox O2 Del Method 02/03/24 20:00 36.7 C 89 19 159/94 H 94 Room Air (2) HTN (hypertension) Hypertension type: essential hypertension Qualified Code(s): I10 - Essential (primary) hypertension
--- NOTE | 2024-02-04 06:44 | Discharge Summary ---
Date of Service February 04, 2024 Admission HPI Per Admitting Provider Lauren Ho is an 88 year old female who presents to the ER with sudden onset left lower quadrant pain that started this morning. She reports multiple prior episodes of diverticulitis some of which have been mild and managed at home with a liquid diet but she has also had bowel perforation and abscess requiring extensive and prolonged inpatient admission. This occasion the pain was severe in left lower quadrant, severity 10/10, no radiation, woke her up this morning. No nausea, vomiting, heartburn, melena, hematochezia or change in bowel movements. She lives alone and given her history of perforation and abscess she is very concerned about going home given she continues to be in pain. Admission Exam Per Admitting Provider Constitutional: WD/WN, vitals as above ENMT: external ear and nose normal, oropharynx normal Respiratory: normal respiratory effort, lungs clear to auscultation Cardiovascular: RRR, no murmur, no edema Gastrointestinal (Abdomen): Percussion/Palpation: + abdomen tender (LLQ and suprapubic pain) and abdomen soft; no guarding and abdomen not rigid Skin: no rashes, warm and dry Neurologic: moves all extremities and awake; not confused Psychiatric: Orientation: alert Affect: + anxious affect Principal Diagnosis acute diverticulitis Discharge Exam constitutional: alert and oriented x4, no fever, body aches, chills HEENT: NC/AT, EOMI b/l, vision intact - ears: R ear possible R TM partial perforation from 12 to 2 o'clock, otherwise non erythematous, no effusion or blood; L ear TM intact, no erythema, effusion or blood Cardiovascular: RRR, soft heart sounds, mild systolic murmur, 2+ carotid and radial pulses b/l Pulmonary: clear to auscultation b/l GI: normal bowel sounds, soft with generalized swelling but non-tense, no guarding, mildly tender to palpation of LLQ and suprapubic region MSK: 5/5 strength in all extremities Discharge Data Allergies Allergy/AdvReac Type Severity Reaction Status Date / Time ciprofloxacin AdvReac Severe "MADE ME Unverified 12/19/21 21:02 DEATHLY ILL" lisinopril AdvReac Intermediate Weakness Verified 12/19/21 21:02 Consultations 02/02/24 12:28 ED Decision to Admit Stat Ordered Studies 02/02/24 08:52 CT abd pelvis IV con only Stat Hospital Course (1) Diverticulitis: acute on chronic diverticulitis 02/02/24: WBCs, Hbg and electrolytes stable; dehydrated, received normal saline bolus in ED - per CT abdomen/pelvis, exam, labs, and regular bowel movement, no concern for bowel re-perforation or abscess of sigmoid colon - once on inpatient flood, pt has been receiving IV Ceftriaxone + metronidazole as well as maintenance LR at 100cc/hr 02/03/24: transitioned from NPO to full liquids to regular heart healthy diet, regular bowel movement without blood, appetite improving - IV fluids were discontinued 02/04/24: transitioned to PO Augmentin (amoxicillin-clavulanate) 875mg PO BIDM (twice a day with meals) for 10 days - received first of two daily doses with lunch, to take remaining daily dose with dinner - encouraged to follow up outpatient later this week, with PCP Dr. Rush or if not able, then at [facility] across from [facility] (2) HTN (hypertension): Hypertensive urgency in the ER due to missing morning medications and pain: was initially 150s to 180 systolic over 90s to low 100s diastolic - with continuation of home medications, resolved to 120s to 160 over 70s and 80s - received home doses of metoprolol 50mg, labetalol 100mg, indapamide 1.25mg, felodipine 10mg, irbesartan 300mg during her stay Total Time Total Time Spent Total Time Spent (In Minutes): 35 Discharge Plan Discharge Items Patient Disposition: Home - Self-Care Reason For Visit: ACUTE DIVERTICULITIS Discharge Diagnosis: acute diverticulitis Condition on Discharge: Good Activity: Per Instructions section Non-emergency contact: Primary Care Provider Call non-emergency contact if: you have any medication questions and your symptoms worsen Follow-up/Referrals: Tracie Rush DO [Primary Care Provider] - Diet: Full liquid and Heart Healthy Addtl Attending Provider Instructions: You were seen in the ED for sudden-onset of left lower abdominal pain on 02/02/24 acute onset lower abdominal pain that began around 4 AM today when she went to the bathroom to urinate. On evaluation you were not in acute distress, afebrile with blood pressure in 180s/110s and vital signs otherwise stable. On exam you had mild left lower quadrant abdominal tenderness without guarding or rebound. Based on skin assessment, you were deemed to be dehydrated, so you were given an IV fluid bolus (saline solution) and thereafter you received maintenance IV fluids (lactated ringer). You had an EKG done which was negative for cardiac particular cardiac cause. You had a CT of your abdomen and pelvis, which showed mild diverticulitis in your sigmoid colon and no sign or re-perforation or abscess, however there was trace free fluid in the pelvic cavity. Your blood tests showed normal levels of white blood cells, hemoglobin, and platelets, and normal electrolyte levels without sign of acidosis. Given that you had no fever nor leukocytosis, plan was to follow closely as an outpatient, but since there was concern that you couldn't tolerate oral ant ibiotics, there was agreement that you would be admitted to the hospital in order to receive IV antibiotics for diverticulitis exacerbation, namely metronidazole (Flagyl) and ceftriaxone (Rocephin). The next day (02/03/24) you continued with your IV antibiotics and IV fluids, and you were still NPO (not permitted to eat), but started you on full liquids heart healthy diet. You additionally had a regular bowel movement without concern for blood, which decreases the likelihood there is an acute perforation of your colon. Your white blood cells, hemoglobin, electrolytes, and kidney function labs were all within normal range. Today 02/04/24, we discontinued your IV antibiotics and switched you to oral amoxicillin-clavulanate (Augmentin) 875mg twice a day, may cut in half if it is too large to swallow on its own, recommended to take with meals. Of note, all your blood work looked great again this morning, except for potassium (3.2) which was slightly below our normal range, so we ordered potassium supplementation (60 jess-equililants) which should replete you to normal levels. Plan for your daughter Marii to pick you up and drive you home today. Please continue your 10-day course of Augmentin 875mg twice a day, starting today. Additionally, continue eating and hydrating, avoiding foods that may upset your GI tract, such as nuts and seeds, raw vegetables, popcorn, and in general foods high in fat and sugar as well as processed and red meat. We encourage you to follow up closely with your primary care provider, Dr. Rush. If you cannot follow up with her sometime this coming week, please try to schedule an appointment at our [facility] across from [facility] - [phone]. Pending Studies at Discharge: No Stand-Alone Forms: My [facility] Medications and DC Order Prescriptions: New amoxicillin-pot clavulanate 875-125 mg Tablet 1 tab PO BIDM 10 Days Qty: 19 0RF Continued labetalol 100 mg tablet 100 mg PO BID Qty: 180 3RF Rx Instructions: TAKEN IN ADDITION TO REDUCED DOSE METOPROLOL metoprolol tartrate 50 mg tablet 50 mg PO BID Qty: 180 3RF trazodone 50 mg tablet 50 mg PO HS indapamide 1.25 mg tablet 1.25 mg PO QAM felodipine 10 mg tablet extended release 24 hr 10 mg PO QAM irbesartan 300 mg Tablet 300 mg PO QAM cholecalciferol (vitamin D3) [Vitamin D3] 2,000 unit Tablet 2,000 unit PO QAM Caltrate 600 plus D 600 mg (1,500 mg)-800 unit Tablet,Chewable 1 tab PO PM acetaminophen 650 mg Tablet Extended Release 650 - 1,300 mg PO Q12H PRN (Reason: Pain) Probiotic 3 billion cell Capsule 0 mmu cells PO DAILY Discharge Orders: Discharge Order (Routine); Ordered 02/04/24 Ordered By: Cody Yates/Other Patient Handouts: Abdominal Pain, Diverticulosis and Diverticulitis, Diverticulitis Dc, Blood Pressure Check Steps Admission Data Admit Date/Time: 02/02/24 13:08 Attending Provider: Indira Damon Admit Provider: Pacheco Ash Primary Care Provider: Tracie Rush Other Providers: Pacheco Ash Other Interventions: Discharge Summary Assessment (RN) Last Done: 02/04/24 16:18 Supervising Physician Co-Signing Physician Notes I personally examined the patient and verified bravo points of history and exam, discussed case, and agree with decision making and plan documented by Dr. Clarke. Patient with symptomatic improvement, able to tolerate advancement of diet, had a small BM that was reported to be normal today. Patient started on Augmentin therapy to complete antibiotic treatment for diverticulitis. She was advised to follow-up outpatient in the next week to ensure completion of antibiotics and resolution of symptoms. Resident Activity Tracking Resident Involvement: Resident Care Provided Care Provided: Adult [facility] Medicine
[2024-02-04 07:03] LABS: Basophils # (auto) 0.08 K/uL (0.00-0.20); Basophils % (auto) 1.3 %; Eosinophils # (auto) 0.37 K/uL (0.00-0.50); Eosinophils % (auto) 5.9 %; Hematocrit (blood only) 38.7 % (37.0-47.0); Hemoglobin 13.5 g/dl (12.0-16.0); Immature Granulocytes # (auto) 0.03 K/uL (0.01-0.20); Immature Granulocytes % (auto) 0.5 %; Lymphocytes # (auto) 0.99 K/uL (1.20-3.40); Lymphocytes % (auto) 15.7 %; Mean Corpuscular Hemoglobin 30.9 pg (25.0-34.0); Mean Corpuscular Hgb Conc 34.9 g/dL (32.0-36.0); Mean Corpuscular Volume 88.6 fL (80.0-100.0); Mean Platelet Volume 9.8 fL (9.4-12.4); Monocytes # (auto) 0.82 K/uL (0.11-0.59); Neutrophils # (auto) 4.03 K/uL (1.40-6.50); Neutrophils % (auto) 63.6 %; Platelet Count 225 K/uL (130-400); RDW Coefficient of Variation 13.5 % (11.5-14.5); RDW Standard Deviation 44.2 fL (36.4-46.3); Red Blood Count 4.37 M/uL (4.20-5.40); White Blood Count 6.32 K/ul (4.8-10.8)
[2024-02-04 07:12] VITALS: TEMP 97.7
[2024-02-04 07:17] LABS: BUN Creatinine Ratio 18.3 (10-20); Calcium 8.9 mg/dl (8.6-10.3); Est GFR (African American) 73.5 ml/min; Est GFR (Non-African American) 63.4 ml/min; Potassium 3.2 mmol/L (3.5-5.1)
[2024-02-04] MEDS: AMOXICILLIN/CLAVULANATE 875 MG TAB PO SCH (13:29)
[2024-02-04] MEDS: POTASSIUM CHLORIDE 20 MEQ/15 ML UDC PO STA (13:36)
[2024-02-04] MEDS: POTASSIUM CHLORIDE 20 MEQ/15 ML UDC PO ONE (15:16)
[2024-02-04 15:24] VITALS: BP 142/83; PULSE 81; RESP 18; O2SAT 96
--- NOTE | 2024-02-04 21:44 | Electrocardiogram Report ---
Test Reason : Blood Pressure : */* mmHG Vent. Rate : 84 BPM Atrial Rate : 84 BPM P-R Int : 198 ms QRS Dur : 128 ms QT Int : 378 ms P-R-T Axes : 55 -65 48 degrees QTcB Int : 446 ms Sinus rhythm with Premature atrial complexes Left axis deviation Left ventricular hypertrophy with QRS widening ( R in aVL , Forgan product , Romhilt-Morrell ) Poor R wave progression, consider anterior FL vs. lead placement vs. LVH Abnormal ECG When compared with ECG of 26-Jan-2022 09:42, No significant change Confirmed by Hoang Zepeda ([id number]) on 02/04/2024 9:44:27 PM Referred By: REFERRED SELF Confirmed By: Hoang Zepeda
== END 2024-02-04 17:25 | disposition home or self-care (01) | DRG 392 ==
LOC: ED 08:36 → SUATTDRO 13:08 → INTOOBSV 13:08 → 3N 13:08

== ENCOUNTER 2024-07-23 12:12 | Inpatient (IN) ==
--- NOTE | 2024-07-23 12:23 | Emergency Department Note ---
Impression & Plan COVID-19, Weakness, Fall, Hypoxia, Head injury ED Provider Note NAME: MANNIE CAMARENA AGE: 88 SEX: F : 1935 ARRIVES VIA: Ambulance INFORMANT: Patient, EMS ED PROVIDER(S): Johan Michaud DO CHIEF COMPLAINT: Fall HPI: The patient is an 88-year-old female who presented to the emergency department for fall. She fell from standing position. She struck her head. She was evaluated yesterday for a similar fall. It sounds though she may have not needed transport at that time but today she fell after her family had just left from visiting her. She thinks she struck her head. She had back pain and neck pain which she states is since resolved. She denies having any abdominal pain or chest pain. She thinks she may have lost consciousness. The patient denies having any lower extremity pain but does have chronic right knee pain. ROS: See above HPI for pertinent positives & negatives. A total of 10 systems reviewed and were otherwise negative. PAST MEDICAL HISTORY: See Below PAST SURGICAL HISTORY: See Below FAMILY HISTORY: See Below SOCIAL HISTORY: See Below HOME MEDICATIONS: See Below ALLERGIES: See Below VITALS: See Below PHYSICAL EXAMINATION: GENERAL: The patient is awake and alert. The patient is somewhat anxious appearing EYES: The conjunctivae are clear. The pupils are round and reactive. EARS, NOSE, MOUTH AND THROAT: The nose is without any evidence of any deformity. NECK: Rigid cervical collar was placed prior to arrival. RESPIRATORY: Normal respiratory effort is noted there is no evidence of wheezing rhonchi or rales CARDIOVASCULAR: Regular rate and rhythm noted there no murmurs rubs or gallops normal S1 normal S2. GASTROINTESTINAL: The abdomen is soft. Abdomen is nontender. BACK: No midline tenderness or or step-off noted range of motion in flexion extension as well as rotation no signs of muscle spasm noted MUSCULOSKELETAL/EXTREMITIES: There is no evidence of gross deformity full range of motion is noted in the hips and shoulders. SKIN: There is no obvious evidence of any rash. There are no petechiae, pallor or cyanosis noted. NEUROLOGIC: Patient is awake alert and oriented x3 MEDICAL DECISION MAKING: The patient is an 88-year-old female who presented to the emergency department for an evaluation of generalized weakness. The patient had a fall. She was evaluated by medics the day before for similar weakness. The patient complaining of left. CT of the head and neck were obtained and did not show any acute process. The patient cervical spine was clinically cleared after she was radiographically cleared. The patient was reevaluated multiple times. On multiple occasions she had episodes of hypoxia. It is unclear if the patient actually had syncope. I discussed the patient's condition with her and her family. I discussed her laboratory and radiographic studies with her family. Ultimately I do not feel the patient would be a good candidate for outpatient management. I discussed her condition with the on-call [facility] hospitalist. They have agreed to evaluate the patient in the emergency department for further management and disposition Triage Nursing notes reviewed. Prior medical records reviewed Vital Signs: reviewed and remarkable for no significant abnormalities Differential diagnosis: Fracture, dislocation, contusion, intra-abdominal, pneumothorax, intrathoracic, intracranial, neurologic, compartment syndrome, rhabdomyolysis, as well as other pathologies. ER treatment provided: See below Diagnostics interpreted by me: ECG: EKG was obtained in the emergency department. My interpretation is normal sinus rhythm at 84 bpm. There is no ectopy noted. LVH was noted by voltage criteria. The left bundle branch block pattern was favored. This was compared to a tracing from February 12, 2024. No changes were noted. Cardiac Monitoring: An order was placed for continuous cardiac monitoring. The monitor shows a rate of 77 bpm with sinus rhythm Laboratory studies: As stated above and show below. Imaging studies: See below. Radiographic imaging was reviewed by myself Consultation(s): I discussed this case with Dr. Ash who is on-call for his group. Past Med/Surg History Problem List (Updated 07/23/24 @ 19:24 by Johan Michaud DO) Head injury (Acute) Syncope Hypoxia (Acute) Fall (Acute) Weakness (Acute) COVID-19 (Acute) HTN (hypertension) (Chronic) Osteoarthritis of knees, bilateral Chronic kidney disease, stage 3a Medical History Low vitamin B12 level Impaired taste Nausea Insomnia Diverticulitis of intestine with perforation and abscess Mild aortic regurgitation with left ventricular systolic dysfunction by prior echocardiogram Moderate to severe mitral regurgitation PAC (premature atrial contraction) Heart palpitations Weakness Asymptomatic bacteriuria Protein calorie malnutrition Cardiomyopathy Fibromyalgia Leaky heart valve Abdominal abscess Abdominal pain Sigmoid diverticulitis Diverticulitis Abdominal pain, LLQ (left lower quadrant) Diverticulitis of intestine with abscess without bleeding Elevated troponin Hypokalemia Diverticulitis Abdominal pain Diverticulitis Abdominal pain Valvular heart disease Hypokalemia Hypomagnesemia Hyponatremia Small bowel obstruction Diverticulitis Surgical History H/O exploratory laparotomy SBO in . 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 Beliefs That Will Affect Care: None marital status: / Current Living Situation: Alone Current Living Situation Comment: Pt lives alone in [facility] How many Children do You have: 1 Feels Safe at Home: Yes Assistive Devices: Walker Allergies Allergies Allergy/AdvReac Type Severity Reaction Status Date / Time Penicillins Allergy Unknown Verified 07/23/24 16:58 ciprofloxacin AdvReac Severe "MADE ME Unverified 07/23/24 16:58 DEATHLY ILL" lisinopril AdvReac Intermediate Weakness Verified 07/23/24 16:58 metronidazole [From Flagyl] AdvReac Weakness Verified 07/23/24 16:58 Home Meds Home Medications Medication Instructions Recorded Confirmed calcium 600 mg (as carbonate)-vit 1 tab PO PM 08/04/18 07/23/24 D3 20 mcg (800 unit) chewable tablet (Caltrate plus D) cholecalciferol (vitamin D3) 50 2,000 unit PO QAM 08/04/18 07/23/24 mcg (2,000 unit) tablet (Vitamin D3) felodipine 10 mg tablet,extended 10 mg PO QAM 08/04/18 07/23/24 release 24 hr indapamide 1.25 mg tablet 1.25 mg PO QAM 08/04/18 07/23/24 irbesartan 300 mg tablet 300 mg PO QAM 08/04/18 07/23/24 trazodone 50 mg tablet 50 mg PO HS 08/04/18 07/23/24 acetaminophen 650 mg 650 - 1,300 mg PO Q12H PRN Pain 02/18/21 07/23/24 tablet,extended release lactobacillus combination no.4 3 0 mmu cells PO DAILY 02/18/21 07/23/24 billion cell capsule (Probiotic) Previous Rx's Medication Instructions Recorded labetalol 100 mg tablet 100 mg PO BID #180 tabs 09/26/23 metoprolol tartrate 50 mg tablet 50 mg PO BID #180 tabs 09/26/23 Results & Data (ED) Vital Signs Vital Signs - 24 hr 07/23/24 12:23 07/23/24 12:23 07/23/24 12:27 Temperature 36.6 C Temperature Source Oral Pulse Rate 80 87 Pulse Rate [Apical] Pulse Rate from SpO2 Sensor 87 Respiratory Rate 18 21 Blood Pressure 169/103 H Blood Pressure [Right Arm] Blood Pressure Mean 125 Blood Pressure Mean [Right Arm] Pulse Oximetry 86 L 86 L 95 Oxygen Delivery Method Room Air Room Air Oxygen Flow Rate 2 Sepsis Recent Fever Within 48 Hours No Sepsis New/Unexplained Change in Mental Status No Sepsis Action Taken by Nursing No Action Required 07/23/24 12:28 07/23/24 12:30 07/23/24 12:30 Temperature Temperature Source Pulse Rate 86 Pulse Rate [Apical] Pulse Rate from SpO2 Sensor Respiratory Rate Blood Pressure 124/69 124/69 Blood Pressure [Right Arm] Blood Pressure Mean 83 83 Blood Pressure Mean [Right Arm] Pulse Oximetry Oxygen Delivery Method Oxygen Flow Rate Sepsis Recent Fever Within 48 Hours Sepsis New/Unexplained Change in Mental Status Sepsis Action Taken by Nursing 07/23/24 12:36 07/23/24 13:00 07/23/24 13:00 Temperature Temperature Source Pulse Rate 85 85 Pulse Rate [Apical] Pulse Rate from SpO2 Sensor 86 84 Respiratory Rate 19 13 Blood Pressure 119/67 Blood Pressure [Right Arm] Blood Pressure Mean 80 Blood Pressure Mean [Right Arm] Pulse Oximetry 96 96 Oxygen Delivery Method Oxygen Flow Rate 2 2 Sepsis Recent Fever Within 48 Hours Sepsis New/Unexplained Change in Mental Status Sepsis Action Taken by Nursing 07/23/24 13:27 07/23/24 13:30 07/23/24 13:30 Temperature Temperature Source Pulse Rate 83 Pulse Rate [Apical] Pulse Rate from SpO2 Sensor 84 Respiratory Rate 23 Blood Pressure 124/64 124/64 Blood Pressure [Right Arm] Blood Pressure Mean 69 69 Blood Pressure Mean [Right Arm] Pulse Oximetry 96 Oxygen Delivery Method Oxygen Flow Rate 2 Sepsis Recent Fever Within 48 Hours Sepsis New/Unexplained Change in Mental Status Sepsis Action Taken by Nursing 07/23/24 14:00 07/23/24 14:04 07/23/24 14:39 Temperature Temperature Source Pulse Rate 85 83 Pulse Rate [Apical] 89 Pulse Rate from SpO2 Sensor 83 Respiratory Rate 20 18 19 Blood Pressure Blood Pressure [Right Arm] 134/81 Blood Pressure Mean Blood Pressure Mean [Right Arm] 98 Pulse Oximetry 94 95 Oxygen Delivery Method Room Air Oxygen Flow Rate 2 Sepsis Recent Fever Within 48 Hours Sepsis New/Unexplained Change in Mental Status Sepsis Action Taken by Nursing 07/23/24 15:03 07/23/24 15:18 07/23/24 15:30 Temperature Temperature Source Pulse Rate 84 Pulse Rate [Apical] Pulse Rate from SpO2 Sensor 84 Respiratory Rate 20 Blood Pressure 117/63 128/73 Blood Pressure [Right Arm] Blood Pressure Mean 75 96 Blood Pressure Mean [Right Arm] Pulse Oximetry 94 Oxygen Delivery Method Oxygen Flow Rate 2 Sepsis Recent Fever Within 48 Hours Sepsis New/Unexplained Change in Mental Status Sepsis Action Taken by Nursing 07/23/24 15:30 07/23/24 15:30 07/23/24 15:30 Temperature Temperature Source Pulse Rate Pulse Rate [Apical] Pulse Rate from SpO2 Sensor Respiratory Rate Blood Pressure 128/73 128/73 128/73 Blood Pressure [Right Arm] Blood Pressure Mean 96 96 96 Blood Pressure Mean [Right Arm] Pulse Oximetry Oxygen Delivery Method Oxygen Flow Rate Sepsis Recent Fever Within 48 Hours Sepsis New/Unexplained Change in Mental Status Sepsis Action Taken by Nursing 07/23/24 15:30 Temperature Temperature Source Pulse Rate 83 Pulse Rate [Apical] Pulse Rate from SpO2 Sensor 83 Respiratory Rate 16 Blood Pressure Blood Pressure [Right Arm] Blood Pressure Mean Blood Pressure Mean [Right Arm] Pulse Oximetry 96 Oxygen Delivery Method Oxygen Flow Rate 2 Sepsis Recent Fever Within 48 Hours Sepsis New/Unexplained Change in Mental Status Sepsis Action Taken by [facility] Medications Current Medication List: was personally reviewed by me Laboratory Data Attestation: I reviewed the patient's lab results. 07/23/24 12:27 07/23/24 12:27 Lab Results 07/23/24 07/23/24 07/23/24 Range/Units 12:27 13:45 14:27 WBC 8.08 (4.8-10.8) K/ul RBC 4.40 (4.20-5.40) M/uL Hgb 13.3 (12.0-16.0) g/dl Hct 38.9 (37.0-47.0) % MCV 88.4 (80.0-100.0) fL MCH 30.2 (25.0-34.0) pg MCHC 34.2 (32.0-36.0) g/dL RDW Std Deviation 43.9 (36.4-46.3) fL RDW Coeff of Mari 13.6 (11.5-14.5) % Plt Count 191 (130-400) K/uL MPV 9.6 (9.4-12.4) fL Immature Gran % (Auto) 0.5 % Neut % (Auto) 56.6 % Lymph % (Auto) 17.6 % Cotton % (Auto) 24.8 % Eos % (Auto) 0.1 % Baso % (Auto) 0.4 % Neut # (Auto) 4.58 (1.40-6.50) K/uL Lymph # (Auto) 1.42 (1.20-3.40) K/uL Cotton # (Auto) 2.00 H (0.11-0.59) K/uL Eos # (Auto) 0.01 (0.00-0.50) K/uL Baso # (Auto) 0.03 (0.00-0.20) K/uL Immature Gran # (Auto) 0.04 (0.01-0.20) K/uL PT 11.1 (9.0-12.0) Seconds INR 1.0 (0.9-1.1) APTT 30 (21-31) Seconds PTT Ratio 1.1 Sodium 137 (136-145) mmol/L Potassium 3.7 (3.5-5.1) mmol/L Chloride 99 (98-107) mmol/L Carbon Dioxide 30 (21-32) mmol/L Anion Gap 8 (3-11) BUN 25 H (6-23) mg/dl Creatinine 1.02 (0.6-1.2) mg/dl Est Cr Clr Drug Dosing 36.3 ml/min eGFR 52.59 BUN/Creatinine Ratio 24.5 H (10-20) Glucose 101 H (70-99(Fasting)) mg/dl Calcium 9.3 (8.6-10.3) mg/dl Magnesium 1.7 (1.7-2.4) mg/dl Total Bilirubin 0.6 (0.2-1.0) mg/dl AST 25 (13-39) U/L ALT 15 (7-52) U/L Alkaline Phosphatase 65 (34-104) U/L Total Creatine Kinase 127 (26-192) U/L Troponin I High Sens 30.6 H 31.8 H (0-14) pg/ml C-Reactive Protein 1.30 H (0-0.5) mg/dl Total Protein 6.1 (6.0-8.3) gm/dl Albumin 3.7 (3.4-5.0) gm/dl Globulin 2.4 L (2.5-4.0) gm/dl Albumin/Globulin Ratio 1.5 (0.9-2) TSH 1.183 (0.300-4.500) uIu/ml Urine Color Yellow Urine Appearance Clear (Clear) Urine pH 5.5 (4.5-7.5) Ur Specific Jal 1.018 (1.000-1.030) Urine Protein Trace H (Negative) Urine Glucose (UA) Negative (Negative) Urine Ketones Trace H (Negative) Urine Blood Negative (Negative) Urine Nitrite Negative (Negative) Urine Bilirubin Negative (Negative) Urine Urobilinogen Negative (Negative) Ur Leukocyte Esterase 1+ H (Negative) Urine WBC (Auto) 0-5 (0-5) /hpf Urine RBC (Auto) 6-10 H (0-2) /hpf U Hyaline Cast (Auto) 0-2 (0-2) /lpf U Epithel Cells (Auto) 3-5 H (0-2) /hpf Urine Bacteria (Auto) None Seen (None Seen) Administered Medications Dexamethasone 6 mg/ Syringe 1.5 mls @ 1 mls/min IV DAILY JJ Stop: 08/02/24 16:34 Last Admin: 07/23/24 17:47 Dose: 1 mls/min Documented By: DS Discontinued Medications Acetaminophen (Acetaminophen 500 Mg Tab) 1,000 mg PO NOW STA Stop: 07/23/24 12:20 Last Admin: 07/23/24 13:56 Dose: 1,000 mg Documented By: SINGH Remdesivir 200 mg/ Sodium (Chloride) 250 mls @ 125 mls/hr IV ONE STA Stop: 07/23/24 18:41 Last Admin: 07/23/24 17:25 Dose: 125 mls/hr Documented By: SINGH Imaging Data Attestation: I personally reviewed and interpreted this imaging study as follows: My Impression: CT of the brain was obtained in the emergency department. My interpretation is no intracranial hemorrhage or mass effect, final report below. 1 view chest x-ray was obtained in the emergency department. My interpretation is no free air or definite infiltrate, final report below Radiologist's Impression: Cervical Spine CT 07/23/24 12:19 CT cervical spine wo con CLINICAL HISTORY: 88 years-old Female with fall. Acute head and neck injury status post fall COMPARISON: 05/05/2021 TECHNIQUE: Multiple axial CT images of the cervical spine were obtained without contrast. A dose lowering technique was utilized adhering to the principles of ALARA. FINDINGS: No acute cervical spine fracture is noted. There is unchanged chronic 3 mm of anterolisthesis of C4 and C5. There is severe multilevel facet arthrosis. There is moderate multilevel disc space narrowing and osteophytosis, most pronounced at C5-C6. Craniocervical junction is intact. There is no prevertebral edema. There is no evidence for facet dislocation. The cervical soft tissues appear unremarkable. No pneumothorax. Mild ill- defined groundglass densities of the upper lung zones with mild intralobular septal thickening. Heterogeneity of the thyroid. IMPRESSION: 1. No acute cervical spine fracture or subluxation. 2. Intralobular septal thickening with groundglass densities of the lung apices may represent a component of pulmonary edema versus a mild nonspecific infectious or inflammatory pneumonitis. ACT 112: Negative or not required by law. The above report was generated using voice recognition software. It may contain grammatical, syntax or spelling errors. Electronically signed by: Rohit Gonsalez M.D. 07/23/2024 1:03 PM Chest X-Ray 07/23/24 12:19 XR chest 1V portable CLINICAL HISTORY: weakness COMPARISON STUDY: 08/31/2021 FINDINGS: Stable moderate cardiomegaly without pulmonary vascular congestion. No effusion, consolidation, or pneumothorax. No grossly displaced rib fracture seen. IMPRESSION: No acute findings. ACT 112: Negative or not required by law. Electronically signed by: Kwesi Yang M.D. 07/23/2024 1:[address] 07/23/24 12:19 CT head/brain wo con CLINICAL HISTORY: fall. TECHNIQUE: Multiple axial CT images of the head were obtained without contrast. A dose lowering technique was utilized adhering to the principles of ALARA. CT DOSE: 1118.22 mGy.cm COMPARISON: 08/31/2021 FINDINGS: No intracranial hemorrhage seen. No mass effect, midline shift, or hydrocephalus. There is stable moderate chronic small vessel ischemic change. No skull fracture seen. IMPRESSION: No acute findings. ACT 112: Negative or not required by law. The above report was generated using voice recognition software. It may contain grammatical, syntax or spelling errors. Electronically signed by: Kwesi Yang M.D. 07/23/2024 12:55 PM Hip/Pelvis X-Ray 07/23/24 12:19 XR hip RT 2V w pelvis CLINICAL HISTORY: falll COMPARISON: None FINDINGS: There is a skinfold artifact. No fracture or dislocation. There are minimal degenerative changes at the hips. IMPRESSION: No fracture seen. ACT 112: Negative or not required by law. Electronically signed by: Kwesi Yang M.D. 07/23/2024 1:18 PM Knee X-Ray 07/23/24 12:24 XR knee RT 1 or 2V routine CLINICAL HISTORY: fall COMPARISON: None FINDINGS: There is moderate osteoarthritis. There is medial compartment chondrocalcinosis. There are atherosclerotic calcifications. There is a trace joint effusion. No fracture or dislocation. IMPRESSION: No fracture seen. ACT 112: Negative or not required by law. Electronically signed by: Kwesi Yang M.D. 07/23/2024 1:18 PM Discharge Plan Visit Data Chief Complaint: Fall Stated Complaint: FALL ED Provider: Johan Michaud Discharge Problem: COVID-19, Weakness, Fall, Hypoxia, Head injury Patient Disposition: Admitted As Inpatient Discharge Instructions Interventions: ED Discharge Assessment Last Done: 07/23/24 18:17
[2024-07-23 12:39] LABS: Basophils # (auto) 0.03 K/uL (0.00-0.20); Basophils % (auto) 0.4 %; Eosinophils # (auto) 0.01 K/uL (0.00-0.50); Eosinophils % (auto) 0.1 %; Hematocrit (blood only) 38.9 % (37.0-47.0); Hemoglobin 13.3 g/dl (12.0-16.0); Immature Granulocytes # (auto) 0.04 K/uL (0.01-0.20); Immature Granulocytes % (auto) 0.5 %; Lymphocytes # (auto) 1.42 K/uL (1.20-3.40); Lymphocytes % (auto) 17.6 %; Mean Corpuscular Hemoglobin 30.2 pg (25.0-34.0); Mean Corpuscular Hgb Conc 34.2 g/dL (32.0-36.0); Mean Corpuscular Volume 88.4 fL (80.0-100.0); Mean Platelet Volume 9.6 fL (9.4-12.4); Monocytes % (auto) 24.8 %; Neutrophils # (auto) 4.58 K/uL (1.40-6.50); Neutrophils % (auto) 56.6 %; Platelet Count 191 K/uL (130-400); RDW Coefficient of Variation 13.6 % (11.5-14.5); RDW Standard Deviation 43.9 fL (36.4-46.3); White Blood Count 8.08 K/ul (4.8-10.8)
[2024-07-23 12:56] LABS: Albumin Globulin Ratio 1.5 (0.9-2); Albumin Level 3.7 gm/dl (3.4-5.0); BUN Creatinine Ratio 24.5 (10-20); Bilirubin,Total 0.6 mg/dl (0.2-1.0); Calcium 9.3 mg/dl (8.6-10.3); Creatinine Clr Calc Pharmacy 36.3 ml/min; Globulin 2.4 gm/dl (2.5-4.0); Magnesium 1.7 mg/dl (1.7-2.4); Potassium 3.7 mmol/L (3.5-5.1); Total Protein 6.1 gm/dl (6.0-8.3)
--- NOTE | 2024-07-23 12:56 | CT Scan Report ---
CT head/brain wo con CLINICAL HISTORY: fall. TECHNIQUE: Multiple axial CT images of the head were obtained without contrast. A dose lowering tech nique was utilized adhering to the principles of ALARA. CT DOSE: 1118.22 mGy.cm COMPARISON: 08/31/2021 FINDINGS: No intracranial hemorrhage seen. No mass effect, midline shift, or hydrocephalus. There is stable moderate chronic small vessel ischemic change. No skull fracture seen. IMPRESSION: No acute findings. ACT 112: Negative or not required by law. The above report was generated using voice recognition software. It may contain grammatical, syntax o r spelling errors. Electronically signed by: Kwesi Yang M.D. 07/23/2024 12:55 PM
[2024-07-23 13:02] LABS: Troponin I High Sensitivity 30.6 pg/ml (0-14)
[2024-07-23 13:06] LABS: Partial Thromboplastin Ratio 1.1; Partial Thromboplastin Time 30 Seconds (21-31); Prothrombin Time 11.1 Seconds (9.0-12.0)
--- NOTE | 2024-07-23 13:06 | CT Scan Report ---
CT cervical spine wo con CLINICAL HISTORY: 88 years-old Female with fall. Acute head and neck injury status post fall COMPARISON: 05/05/2021 TECHNIQUE: Multiple axial CT images of the cervical spine were obtained without contrast. A dose low ering technique was utilized adhering to the principles of ALARA. FINDINGS: No acute cervical spine fracture is noted. There is unchanged chronic 3 mm of anterolisthes is of C4 and C5. There is severe multilevel facet arthrosis. There is moderate multilevel disc space narrowing and osteophytosis, most pronounced at C5-C6. Craniocervical junction is intact. There is no prevertebral edema. There is no evidence for facet dislocation. The cervical soft tissues appear unremarkable. No pneumothorax. Mild ill-defined groundglass densiti es of the upper lung zones with mild intralobular septal thickening. Heterogeneity of the thyroid. IMPRESSION: 1. No acute cervical spine fracture or subluxation. 2. Intralobular septal thickening with groundglass densities of the lung apices may represent a compo nent of pulmonary edema versus a mild nonspecific infectious or inflammatory pneumonitis. ACT 112: Negative or not required by law. The above report was generated using voice recognition software. It may contain grammatical, syntax o r spelling errors. Electronically signed by: Rohit Gonsalez M.D. 07/23/2024 1:03 PM
[2024-07-23 13:12] LABS: Thyroid Stimulating Hormone 1.183 uIu/ml (0.300-4.500)
--- NOTE | 2024-07-23 13:18 | XRay Report ---
XR chest 1V portable CLINICAL HISTORY: weakness COMPARISON STUDY: 08/31/2021 FINDINGS: Stable moderate cardiomegaly without pulmonary vascular congestion. No effusion, consolidat ion, or pneumothorax. No grossly displaced rib fracture seen. IMPRESSION: No acute findings. ACT 112: Negative or not required by law. Electronically signed by: Kwesi Yang M.D. 07/23/2024 1:17 PM
--- NOTE | 2024-07-23 13:19 | XRay Report ---
XR hip RT 2V w pelvis CLINICAL HISTORY: falll COMPARISON: None FINDINGS: There is a skinfold artifact. No fracture or dislocation. There are minimal degenerative c hanges at the hips. IMPRESSION: No fracture seen. ACT 112: Negative or not required by law. Electronically signed by: Kwesi Yang M.D. 07/23/2024 1:18 PM
--- NOTE | 2024-07-23 13:20 | XRay Report ---
XR knee RT 1 or 2V routine CLINICAL HISTORY: fall COMPARISON: None FINDINGS: There is moderate osteoarthritis. There is medial compartment chondrocalcinosis. There are atherosclerotic calcifications. There is a trace joint effusion. No fracture or dislocation. IMPRESSION: No fracture seen. ACT 112: Negative or not required by law. Electronically signed by: Kwesi Yang M.D. 07/23/2024 1:18 PM
[2024-07-23] MEDS: ACETAMINOPHEN 500 MG TAB PO STA (13:56)
[2024-07-23 14:13] LABS: Appearance Urine Clear (Clear); Bacteria Urine Automated None Seen (None Seen); Bilirubin Urine Negative (Negative); Blood Urine Negative (Negative); Cast Urine Automated 0-2 /lpf (0-2); Color Urine Yellow; Glucose Urine UA Negative (Negative); Ketones Urine Trace (Negative); Leukocyte Esterase Urine 1+ (Negative); Nitrite Urine Negative (Negative); Protein Urine Trace (Negative); Specific Gravity Urine 1.018 (1.000-1.030); Urobilinogen Urine Negative (Negative); WBC Urine Automated 0-5 /hpf (0-5); pH Urine 5.5 (4.5-7.5)
[2024-07-23 14:47] LABS: Adenovirus PCR Not Detected (NotDetected); Bordetella parapertussis PCR Not Detected (NotDetected); Bordetella pertussis PCR Not Detected (NotDetected); Chlamydia pneumoniae PCR Not Detected (NotDetected); Coronavirus 229E PCR Not Detected (NotDetected); Coronavirus CoV-2 (COVID19)PCR DETECTED (NotDetected); Coronavirus HKU1 PCR Not Detected (NotDetected); Coronavirus NL63 PCR Not Detected (NotDetected); Coronavirus OC43PCR Not Detected (NotDetected); Human Metapneumovirus PCR Not Detected (NotDetected); Influenza A PCR Not Detected (NotDetected); Influenza B PCR Not Detected (NotDetected); Mycoplasma pneumoniae PCR Not Detected (NotDetected); Parainfluenza Virus 1 PCR Not Detected (NotDetected); Parainfluenza Virus 2 PCR Not Detected (NotDetected); Parainfluenza Virus 3 PCR Not Detected (NotDetected); Parainfluenza Virus 4 PCR Not Detected (NotDetected); Respiratory Syncytial VirusPCR Not Detected (NotDetected); Rhinovirus/Enterovirus PCR Not Detected (NotDetected)
--- NOTE | 2024-07-23 15:47 | History & Physical Report ---
Date of Service July 23, 2024 Assessment & Plan (1) COVID-19: (2) Hypoxia: (3) Syncope: (4) HTN (hypertension): Plan 88-year-old female presents to the ER following a syncopal event on 07/23/2024 #COVID / hypoxia O2 sats less than for 94% in the ER, CRP elevated with some lung changes noted on CT cervical spine Symptoms with nasal congestion and cough but appears very minor Discussed remdesivir and dexamethasone benefits and risks and she agrees to start of these at this time Dexamethasone can be discontinued if O2 sats > 94% Remdesivir can be switched to mild/moderate disease if O2 sats > 94% Aim O2 sats > 90% Wean oxygen as able Incentive spirometer #Syncope Most likely vasovagal in the setting of COVID and multiple antihypertensives We will continue on her current antihypertensives for now Apical murmur on exam - TTE ordered #Hypertension On both labetalol and metoprolol (this is not a mistake as confirmed by previous cardiology notes as she is not on the maximum dose on either) Continue felodipine, indapamide and irbesartan. If recurrence and presyncope consider orthostatics VTE prophylaxis - heparin 5000 units SQ BID Diet - regular Disposition - admit to med/tele Admission and Anticipated Discharge Date Admission Date: July 23, 2024 History of Present Illness Chief Complaint: Fall Primary Care Provider: Tracie Rush DO Lauren Ho is an 88-year-old female who presents to the ER with syncopal event earlier today. Her family noted 2 days of nasal congestion and cough. No chest pain, sinus pain or shortness of breath. Yesterday she slept from 6 AM to 2 PM and missed for her morning medications and breakfast and was significantly more confused than usual. This appears to have resolved today. However today around 10:30 AM to 11 AM she just got off the phone with her daughter and she went to put her In the microwave and suddenly felt funny for a few seconds and then lost consciousness and fell on the kitchen floor. No chest pain, palpitations or shortness of breath prior to falling. She pressed her alarm titus after regaining consciousness and was brought to the emergency room. She denies any injuries from the fall. She currently feels back to her normal self. She lives alone in an over 55-year-old community without steps. No gastrointestinal or urinary complaints. Her COVID test was positive in the emergency room. She has never had COVID before but has had previous vaccinations although she is unclear whether she was vaccinated this year. Allergies Allergy/AdvReac Type Severity Reaction Status Date / Time Penicillins Allergy Unknown Verified 07/23/24 16:58 ciprofloxacin AdvReac Severe "MADE ME Unverified 07/23/24 16:58 DEATHLY ILL" lisinopril AdvReac Intermediate Weakness Verified 07/23/24 16:58 metronidazole [From Flagyl] AdvReac Weakness Verified 07/23/24 16:58 Home Medications Medication Instructions Recorded Confirmed Type calcium 600 mg (as carbonate)-vit 1 tab PO PM 08/04/18 07/23/24 History D3 20 mcg (800 unit) chewable tablet (Caltrate plus D) cholecalciferol (vitamin D3) 50 2,000 unit PO QAM 08/04/18 07/23/24 History mcg (2,000 unit) tablet (Vitamin D3) felodipine 10 mg tablet,extended 10 mg PO QAM 08/04/18 07/23/24 History release 24 hr indapamide 1.25 mg tablet 1.25 mg PO QAM 08/04/18 07/23/24 History irbesartan 300 mg tablet 300 mg PO QAM 08/04/18 07/23/24 History trazodone 50 mg tablet 50 mg PO HS 08/04/18 07/23/24 History acetaminophen 650 mg 650 - 1,300 mg PO Q12H PRN Pain 02/18/21 07/23/24 History tablet,extended release lactobacillus combination no.4 3 0 mmu cells PO DAILY 02/18/21 07/23/24 History billion cell capsule (Probiotic) labetalol 100 mg tablet 100 mg PO BID #180 tabs 09/26/23 07/23/24 Rx metoprolol tartrate 50 mg tablet 50 mg PO BID #180 tabs 09/26/23 07/23/24 Rx Past Med/Surg History Problem List (Updated 07/23/24 @ 23:22 by Pacheco Ash MD) Head injury (Acute) Syncope Hypoxia (Acute) Fall (Acute) Weakness (Acute) COVID-19 (Acute) HTN (hypertension) (Chronic) Osteoarthritis of knees, bilateral Chronic kidney disease, stage 3a Medical History Low vitamin B12 level Impaired taste Nausea Insomnia Diverticulitis of intestine with perforation and abscess Mild aortic regurgitation with left ventricular systolic dysfunction by prior echocardiogram Moderate to severe mitral regurgitation PAC (premature atrial contraction) Heart palpitations Weakness Asymptomatic bacteriuria Protein calorie malnutrition Cardiomyopathy Fibromyalgia Leaky heart valve Abdominal abscess Abdominal pain Sigmoid diverticulitis Diverticulitis Abdominal pain, LLQ (left lower quadrant) Diverticulitis of intestine with abscess without bleeding Elevated troponin Hypokalemia Diverticulitis Abdominal pain Diverticulitis Abdominal pain Valvular heart disease Hypokalemia Hypomagnesemia Hyponatremia Small bowel obstruction Diverticulitis Surgical History H/O exploratory laparotomy SBO in . History of laminectomy History of laparoscopy to remove fibroid tumor in uterus History of section x2 History of appendectomy Family History Other No pertinent family history Denies family history of Myocardial infarction Stroke Social History Smoking Status: Former smoker Second Hand Exposure: No; Do You Dip or Chew Tobacco: No; Hx Alcohol Use: No Hx Substance Use: No Preferred Language: Jamaican Communication Ability: Effective Hand Scraper Required: No Beliefs That Will Affect Care: Episcopalian Episcopalian Beliefs: yarsani marital status: / Current Living Situation: Alone Current Living Situation Comment: Pt lives alone in [facility] How many Children do You have: 1 Feels Safe at Home: Yes Safety Concerns: Feels Safe At This Time Assistive Devices: Walker Review of Systems Review of Systems: All systems reviewed & are unremarkable except as noted in HPI & below Physical Exam Constitutional: WD/WN, vitals as above Eyes: + anicteric sclerae; normal pupil size ENMT: Mouth: oral mucous membranes not dry Respiratory: normal respiratory effort, lungs clear to auscultation Cardiovascular: Rate/Rhythm: regular rate and regular rhythm Heart Sounds: + murmur (Apical systolic) Extremities: normal capillary refill; no calf tenderness and no pedal edema Gastrointestinal (Abdomen): normal bowel sounds, soft, nontender, no hepatosplenomegaly Musculoskeletal: no cyanosis or clubbing, extremities motor strength 5/5 Skin: no rashes, warm and dry Neurologic: moves all extremities and awake; not confused Psychiatric: A+Ox3, euthymic affect Results & Data Results & Data Vital Signs (Past 12 Hours) Vital Signs Temp Pulse Pulse Resp BP BP Pulse Ox 07/23/24 14:04 89 18 134/81 94 07/23/24 12:28 86 07/23/24 12:23 86 L 07/23/24 12:23 36.6 C 80 18 169/103 H 86 L O2 Del Method 07/23/24 14:04 Room Air 07/23/24 12:28 07/23/24 12:23 Room Air 07/23/24 12:23 Room Air Laboratory Results Abnormal lab results 07/23/24 07/23/24 07/23/24 Range/Units 12:27 13:45 14:27 [place] # (Auto) 2.00 H (0.11-0.59) K/uL BUN 25 H (6-23) mg/dl BUN/Creatinine Ratio 24.5 H (10-20) Glucose 101 H (70-99(Fasting)) mg/dl Troponin I High Sens 30.6 H 31.8 H (0-14) pg/ml Globulin 2.4 L (2.5-4.0) gm/dl Urine Protein Trace H (Negative) Urine Ketones Trace H (Negative) Ur Leukocyte Esterase 1+ H (Negative) Urine RBC (Auto) 6-10 H (0-2) /hpf U Epithel Cells (Auto) 3-5 H (0-2) /hpf SARS-CoV-2 (PCR) (NotDetected) 07/23/24 Range/Units Unknown [place] # (Auto) (0.11-0.59) K/uL BUN (6-23) mg/dl BUN/Creatinine Ratio (10-20) Glucose (70-99(Fasting)) mg/dl Troponin I High Sens (0-14) pg/ml Globulin (2.5-4.0) gm/dl Urine Protein (Negative) Urine Ketones (Negative) Ur Leukocyte Esterase (Negative) Urine RBC (Auto) (0-2) /hpf U Epithel Cells (Auto) (0-2) /hpf SARS-CoV-2 (PCR) DETECTED A (NotDetected) Diagnostic Findings CT head/brain wo con CLINICAL HISTORY: fall. TECHNIQUE: Multiple axial CT images of the head were obtained without contrast. A dose lowering technique was utilized adhering to the principles of ALARA. CT DOSE: 1118.22 mGy.cm COMPARISON: 08/31/2021 FINDINGS: No intracranial hemorrhage seen. No mass effect, midline shift, or hydrocephalus. There is stable moderate chronic small vessel ischemic change. No skull fracture seen. IMPRESSION: No acute findings. CT cervical spine wo con CLINICAL HISTORY: 88 years-old Female with fall. Acute head and neck injury status post fall COMPARISON: 05/05/2021 TECHNIQUE: Multiple axial CT images of the cervical spine were obtained without contrast. A dose lowering technique was utilized adhering to the principles of ALARA. FINDINGS: No acute cervical spine fracture is noted. There is unchanged chronic 3 mm of anterolisthesis of C4 and C5. There is severe multilevel facet arthr osis. There is moderate multilevel disc space narrowing and osteophytosis, most pronounced at C5-C6. Craniocervical junction is intact. There is no prevertebral edema. There is no evidence for facet dislocation. The cervical soft tissues appear unremarkable. No pneumothorax. Mild ill- defined groundglass densities of the upper lung zones with mild intralobular septal thickening. Heterogeneity of the thyroid. IMPRESSION: 1. No acute cervical spine fracture or subluxation. 2. Intralobular septal thickening with groundglass densities of the lung apices may represent a component of pulmonary edema versus a mild nonspecific infectious or inflammatory pneumonitis. XR chest 1V portable CLINICAL HISTORY: weakness COMPARISON STUDY: 08/31/2021 FINDINGS: Stable moderate cardiomegaly without pulmonary vascular congestion. No effusion, consolidation, or pneumothorax. No grossly displaced rib fracture seen. IMPRESSION: No acute findings. XR hip RT 2V w pelvis CLINICAL HISTORY: falll COMPARISON: None FINDINGS: There is a skinfold artifact. No fracture or dislocation. There are minimal degenerative changes at the hips. IMPRESSION: No fracture seen. XR knee RT 1 or 2V routine CLINICAL HISTORY: fall COMPARISON: None FINDINGS: There is moderate osteoarthritis. There is medial compartment chondrocalcinosis. There are atherosclerotic calcifications. There is a trace joint effusion. No fracture or dislocation. IMPRESSION: No fracture seen. Medications Administered ER medications given: Acetaminophen 1000 mg PO ECG Rate (beats per minute): 84 Rhythm: normal sinus Findings: + left axis deviation Comparison ECG Date: from (February 02, 2024) Change: the following changes noted (Fusion complexes no longer present) Code Status & VTE Plan Code Status DNR/DNI per patient wishes VTE Prophylaxis Plan VTE Prophylaxis will be ordered: Yes PG Care Time/CCT Total # of Minutes Spent Total Time Spent with Patient: Total time spent is greater than 50% in coordination of care (as documented) at patient's floor/unit and/or counseling patient: Coding Level of Care Code 51233 INT INP/OBS CARE 3/75MIN Diagnoses COVID-19 U07.1 Hypoxia R09.02 Vasovagal syncope R55 Syncope type: vasovagal syncope Essential hypertension I10 Hypertension type: essential hypertension (3) Syncope Syncope type: vasovagal syncope Qualified Code(s): R55 - Syncope and collapse (4) HTN (hypertension) Hypertension type: essential hypertension Qualified Code(s): I10 - Essential (primary) hypertension
--- NOTE | 2024-07-23 16:19 | Electrocardiogram Report ---
Test Reason : Blood Pressure : */* mmHG Vent. Rate : 84 BPM Atrial Rate : 84 BPM P-R Int : 192 ms QRS Dur : 128 ms QT Int : 382 ms P-R-T Axes : 63 -73 68 degrees QTcB Int : 451 ms Normal sinus rhythm Left axis deviation Left ventricular hypertrophy with QRS widening and repolarization abnormality ( R in aVL ) Abnormal ECG When compared with ECG of 02-Feb-2024 08:43, Fusion complexes are no longer Present Confirmed by Johan Moreno ([id number]) on 07/23/2024 4:18:51 PM Referred By: Confirmed By: Johan Moreno
[2024-07-23 16:21] LABS: C Reactive Protein 1.3 mg/dl (0-0.5)
[2024-07-23] MEDS: REMDESIVIR 200 MG in SODIUM CHLORIDE 0.9% 210 ML IV STA (17:25)
[2024-07-23] MEDS: dexAMETHasone 6 MG in SYRINGE 0 ML IV SCH (17:47)
--- OUTSIDE RECORDS SUMMARY | 2024-07-23 20:32 | External Medical Summary | Continuity of Care Document ---
Author Name Unknown Organization [address] Address [address] [place] [id number] Care Team Providers Care Fruit Shipper Name Role Phone Tracie Rush Primary Care Physician [phone] Encounter [facility] [id number] Date(s): 03/21/24 - 03/21/[address], [address] [place] [address] [phone] Encounter Diagnosis B12 deficiency(Discharge Diagnosis) - 03/21/24 Diverticulosis(Discharge Diagnosis) - 03/21/24 HTN (hypertension)(Discharge Diagnosis) - 03/21/24 Encounter for completion of form with patient(Discharge Diagnosis) - 03/21/24 Intertrigo of web of toe(Discharge Diagnosis) - 03/21/24 Discharge Disposition: Home or Self Care Attending Physician: DO Rush Kristen M Referring Physician: DO Rush Kristen M Allergies, Adverse Reactions, Alerts Substance Criticality Severity Reaction Reaction Severity Status penicillins hives Active Cipro weakness Active Mobic severe leg swelling Active Flagyl weakness Active Avelox weakness Active Assessment and Plan Extracted from: Title:Office Visit Note Author:DO Rush Kriste n M Date:03/21/24 1.B12 deficiency Chronic condition, stable Goal:Resolution Data:unique tests ordered: _ Plan: _asymptomatic 2.Diverticulosis Chronic condition, stable Goal:Resolution Data:unique tests ordered: _ Plan: _stable 3.HTN (hypertension) Chronic condition, stable Goal:Resolution Data:unique tests ordered: _ Plan: _stable 4.Encounter for completion of form with patient -done 5.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, stable Goal:Resolution Data:unique tests ordered: _ Plan: _nystatin powder Immunizations Given and Recorded Vaccine Date Status Refusal Reason influenza virus vaccine, inactivated 1 03/21/24 Gi joann influenza virus vaccine, inactivated 03/04/23 Julio Cesar rded influenza virus vaccine, inactivated 02/07/22 Give n influenza virus vaccine, inactivated 05/30/21 Julio Cesar rded influenza virus vaccine, inactivated 02/25/19 Give n influenza virus vaccine, inactivated 03/13/18 Give n influenza virus vaccine, inactivated 02/07/17 Give n influenza virus vaccine, inactivated 03/24/16 Give n influenza virus vaccine, inactivated 03/19/15 Give n SARS-CoV-2 mRNA-1273 (6y+ bivalent) 2 03/07/22 Rec orded SARS-CoV-2 (COVID-19) mRNA-1273 vaccine 3 04/09/21 Recorded SARS-CoV-2 (COVID-19) mRNA-1273 vaccine 08/04/20 R ecorded SARS-CoV-2 (COVID-19) mRNA-1273 vaccine 07/07/20 R ecorded 1Result Comment: Domi Tena Rn 2Result Comment: 2022-03-24: Historical information-source unspecified 3Result Comment: 2021-06-03: Historical information-source unspecified Medications Caltrate 600 + D Start: 11/27/14 7:34:00 PM EDT, 1 tab, PO, Daily Start Date: 11/27/14 Status: Ordered Daily Digestive 5X Probiotic Start: 09/15/22 2:34:00 PM EDT Start Date: 09/15/22 Status: Ordered felodipine 10 mg oral tablet, extended release Start: 06/05/23 6:56:00 PM EST, See Instructions, Disp# 90 tab, Refills: 3, TAKE 1 TABLET DAILY, Pharmacy: [facility] Start Date: 06/05/23 Status: Ordered indapamide 1.25 mg oral tablet Start: 03/18/24 5:12:00 PM EDT, 1 tab, PO, qAM, Disp# 90 tab, Refills: 3, Pharmacy: [facility] Start Date: 03/18/24 Status: Ordered irbesartan 300 mg oral tablet Start: 03/20/23 12:01:00 PM EDT, 1 tab, PO, Daily, Disp# 90 tab, Refills: 3, Pharmacy: [facility] Start Date: 03/20/23 Status: Ordered labetalol 100 mg oral tablet Start: 10/08/21 12:59:00 PM EDT, 1 tab, PO, bid Start Date: 10/08/21 Status: Ordered Metoprolol Tartrate 100 mg oral tablet Start: 01/26/21 12:43:00 PM EDT, See Instructions, Disp# 180 tab, Refills: 3, TAKE 1 TABLET TWICE A DAY, Pharmacy: [facility] Start Date: 01/26/21 Status: Ordered nystatin 100,000 units/g topical powder Start: 03/21/24 4:19:00 PM EDT, 1 appl, topical, tid, Disp# 30 g, Refills: 1, Pharmacy: [id number] Start Date: 03/21/24 Status: Ordered traZODone 50 mg oral tablet Start: 03/18/24 5:12:00 PM EDT, 1 tab, PO, qhs, Disp# 90 tab, Refills: 3, Pharmacy: [facility] Start Date: 03/18/24 Status: Ordered triamcinolone 0.1% topical cream Start: 03/16/20 2:49:00 PM EDT, 1 appl, topical, bid, Disp# 60 g, Refills: 3, Pharmacy: [facility] Start Date: 03/16/20 Status: Ordered Tylenol Start: 07/26/15 11:54:00 AM EST, PRN Start Date: 07/26/15 Status: Ordered Vitamin D3 2000 intl units oral tablet Start: 10/02/15 10:46:00 AM EDT, 1 tab, PO, Daily, Disp# 30 tab, Refills: 0, Pharmacy: [id number] Start Date: 10/02/15 Status: Ordered Mental Status 03/21/24 Barriers to Learning one year None evide nt Mandatory Health Literacy Documentation Yes Health Literacy Communication Barriers N ever Primary Language Polish Problem List Condition Confirmation Course Effective Dates [...] Effective Dates Health Status Clinical Service Informant Diverticulosis Discharge Diagnosis 03/21/24 Non-Specified HTN (hypertension) Discharge Diagnosis 03/21/24 Non-Specified Encounter for completion of form with patient Discharge Diagnosis 03/21/24 Non-Specified B12 deficiency Discharge Diagnosis 03/21/24 Non-Specified Intertrigo of web of toe Discharge Diagnosis 03/21/24 Non-Specified Procedures Procedure Date Related Diagnosis Body Site [...] to oldest [Reference Range]: 1 Patient Weight 71 kg (03/21/24 3:20 PM) Heart Rate 81 bpm (03/21/24 3:20 PM) Respiratory Rate 22 br/min (03/21/24 3:20 PM) Blood Pressure 130/75mmHg (03/21/24 3:20 PM) Social History Social History Type Response Tobacco Cigarettes, 2 year(s ). Started age 19 Years. Stopped age 21 Years. 1 Smoking Status Never smoked cigaret lori Sex Female Sex Representation Female (finding) 1Socially FCM Outpt Note * DO Rush Kristen M: PERFORM, MODIFY Event Display: FCM Outpt Note Authored Date: [id number] Chief Complaint 6 mo f/u - irritation under breasts - would like her flu shot and B12 History of Present Illness Pt presents for routine visit and form completion. Review of Systems ROS: Denies TANNER, visual changes, SOB, CP, N/V, no edema, fever, chills, dysuria, bowel changes Physical Exam Vitals & Measurements HR:81(Monitored) RR:22 BP:130/75 SpO2:97% WT:71kg WT:71.000kg(Dosing) G: AAAOx3, NAD H: RR normal S1/S2 no M/R/G L: CTA b/l no r/r/w HEENT: external ear canal and TM wnl, oral mucosa moist, no lymphadenopathy A: soft +bs nt nd E: no c/C/E b/l, pos distal pulses P: normal affect and insight, no homicidal/suicidal ideation Assessment/Plan 1.B12 deficiency Chronic condition, stable Goal:Resolution Data:unique tests ordered: _ Plan: _asymptomatic 2.Diverticulosis Chronic condition, stable Goal:Resolution Data:unique tests ordered: _ Plan: _stable 3.HTN (hypertension) Chronic condition, stable Goal:Resolution Data:unique tests ordered: _ Plan: _stable 4.Encounter for completion of form with patient -done 5.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 I spent24 time in face to face interaction with patient concerning the issues that brought them in today. I spent4 min time in post visit planning including finishing note and depart process Total time spent today on patient visit32 min Problem List/Past Medical History Ongoing B12 deficiency Constipation Diverticulitis Diverticulosis Enteritis HTN (hypertension) Knee pain Medicare annual wellness visit, subsequent Right knee DJD Serum calcium elevated Weight disorder Weight loss Resolved Acute sinus infection Bakers cyst Chondrocalcinosis Greater trochanteric bursitis H/O small bowel obstruction Hyponatremia IT band syndrome Pelvic pain Pes anserine bursitis Right knee pain Sigmoid diverticulitis Procedure/Surgical History CT of abdomen and pelvis| Service Date: 01/19/2018Colonoscopy| Service Date: 05/03/2017CT of abdomen and pelvis| Service Date: 03/14/2017Bilateral cataractsLaminectomyBowel obstructionUterine fibroidectomyCesarean section Medications acetaminophen(Tylenol) amoxicillin-clavulanate(Augmentin 875 mg-125 mg oral tablet), 1 tab, PO, q12h bifidobacterium-lactobacillus(Daily Digestive 5X Probiotic) calcium-vitamin D(Caltrate 600 [...] 3 refills traZODone(traZODone 50 mg oral tablet), 1 tab, PO, qhs triamcinolone topical(triamcinolone 0.1% topical cream), 1 appl, [...] Medicare Annual Wellness Visit due02/07/23and every 1year Adult Social Determinants of Health Screening due11/01/23and every 366day Adult Influenza Vaccine due11/26/23and every 1year Due Adult COVID-19 Vaccination due03/21/24Unknown Frequency Adult Tdap/Td Vaccine due03/21/24Unknown Frequency Pneumococcal Vaccine Older Adults due03/21/24One-time only Shingles Vaccine due03/21/24One-time only Satisfied(in the past 1 year) There are no satisfied recommendations within the defined date range Electronic Signature on File Electronically Reviewed/Signed by: Tracie Rush DO Author Signature Dt/Tm:03/21/2024 04:19 PM Department of Family Medicine [facility] Patient Care team information Care Team Personnel Name: DO Rush Kristen M Position: Physician - Family Med Member Role: Primary Care Provider [address]: [address] [place] [address] [place] Care Team Related Persons Name: OLVIN GLASS"
--- OUTSIDE RECORDS SUMMARY | 2024-07-23 20:32 | External Medical Summary | Continuity of Care Document ---
Author Name Unknown Organization [address] Address [address] [place] [id number] Care Team Providers Care Director Surgical Name Role Phone Tracie Rush Primary Care Physician [phone] Encounter [facility] [phone] Date(s): 02/12/24 - 02/12/[address] [place] [id number] [facility], [address] [place] [address] [phone] Encounter Diagnosis Hospitalization within last 30 days(Discharge Diagnosis) - 02/12/24 Hearing loss(Discharge Diagnosis) - 02/12/24 Diverticulitis(Discharge Diagnosis) - 02/12/24 Discharge Disposition: Home or Self Care Attending Physician: Chelsy Hooker DO, Mariana Annette Referring Physician: DO Rush Kristen M Allergies, Adverse Reactions, Alerts Substance Criticality Severity Reaction Reaction Severity Status penicillins hives Active Cipro weakness Active Flagyl weakness Active Avelox weakness Active Mobic severe leg swelling Active Assessment and Plan Extracted from: Title:Office Visit Note Author:Chelsy Hooker DO, Mariana Annette Date:02/12/24 1.Hospitalization within l ast 30 days Initial transitional care contact documentation reviewed and was made on 02/04. Medical Decision Making:moderately or highly complex (seen within 14 days of discharge) ([id number]) Medication Reconciliation:medication list reconciled Referrals:none_ Community Resources identified for patient/family:None Durable Medical Equipment:No qualifying data available. Additional Communication Delivered or Planned to:None Needed Patient Education Handouts Given: Patient Education Topics Discussed: _ Follow up Visit:has PCP apt in 5 weeks 2.Diverticulitis Much improved cont augmentindaily for 2 more days cont advancing diet as tolerated discussed return/ED precautions Immunizations Given and Recorded Vaccine Date Status [...] 2Result Comment: 2021-06-03: Historical information-source unspecified Medications Augmentin 875 mg-125 mg oral tablet Start: 02/12/24 11:15:00 AM EDT, amoxicillin 1 tab, PO, q12h Start Date: 02/12/24 Stop Date: 02/14/24 Status: Ordered Caltrate 600 + D Start: 11/27/14 7:34:00 PM EDT, 1 tab, PO, Daily Start Date: 11/27/14 Status: Ordered Daily Digestive 5X Probiotic Start: 09/15/22 2:34:00 PM EDT Start Date: 09/15/22 Status: Ordered felodipine 10 mg oral tablet, extended release Start: 06/05/23 6:56:00 PM EST, See Instructions, Disp# 90 tab, Refills: 3, TAKE 1 TABLET DAILY, Pharmacy: [facility] Start Date: 06/05/23 Status: Ordered indapamide 1.25 mg oral tablet Start: 03/20/23 12:01:00 PM EDT, 1 tab, PO, qAM, Disp# 90 tab, Refills: 3, Pharmacy: [facility] Start Date: 03/20/23 Status: Ordered irbesartan 300 mg oral tablet Start: 03/20/23 12:01:00 PM EDT, 1 tab, PO, Daily, Disp# 90 tab, Refills: 3, Pharmacy: [facility] Start Date: 03/20/23 Status: Ordered labetalol 100 mg oral tablet Start: 10/08/21 12:59:00 PM EDT, 1 tab, PO, bid Start Date: 10/08/21 Status: Ordered Metoprolol Tartrate 100 mg oral tablet Start: 01/26/21 12:43:00 PM EDT, See Instructions, Disp# 180 tab, Refills: 3, TAKE 1 TABLET TWICE A DAY, Pharmacy: [facility] Start Date: 01/26/21 Status: Ordered traZODone 50 mg oral tablet Start: 12/11/23 1:08:00 PM EDT, See Instructions, Disp# 90 tab, Refills: 3, TAKE 1 TABLET AT BEDTIME, Pharmacy: [id number] Start Date: 12/11/23 Status: Ordered triamcinolone 0.1% topical cream Start: 03/16/20 2:49:00 PM EDT, 1 appl, topical, bid, Disp# 60 g, Refills: 3, Pharmacy: [facility] Start Date: 03/16/20 Status: Ordered Tylenol Start: 07/26/15 11:54:00 AM EST, PRN Start Date: 07/26/15 Status: Ordered Vitamin D3 2000 intl units oral tablet Start: 10/02/15 10:46:00 AM EDT, 1 tab, PO, Daily, Disp# 30 tab, Refills: 0, Pharmacy: [facility] Start Date: 10/02/15 Status: Ordered Mental Status 02/12/24 Barriers to Learning one year None evide nt Mandatory Health Literacy Documentation Yes Health Literacy Communication Barriers N ever Primary Language Stateless Problem List Condition Confirmation Course Effective Dates [...] Effective Dates Health Status Clinical Service Informant Hospitalization within last 30 days Discharge Diagnosis 02/12/24 Non-Specified Hearing loss Discharge Diagnosis 02/12/24 Non-Specified Diverticulitis Discharge Diagnosis 02/12/24 Non-Specified Procedures Procedure Date Related Diagnosis Body [...] to oldest [Reference Range]: 1 Patient Weight 72.8 kg (02/12/24 11:18 AM) Temperature [36.5-37.9 DegC] 36.5 DegC (02/12/24 11:18 AM) Blood Pressure 116/62mmHg (02/12/24 11:18 AM) Cuff Pulse Pressure 54 mmHg (02/12/24 11:18 AM) Social History Social History Type Response Tobacco Cigarettes, 2 year(s ). Started age 19 Years. Stopped age 21 Years. 1 Smoking Status Never smoked cigaret lori Sex Female Sex Representation Female (finding) 1Socially [facility] Outpt Note * Chelsy Hooker DO, Mariana Annette: PERFORM Event Display: [facility] Outpt Note Authored Date: [id number] Chief Complaint Hosp f/u [facility] diverticulitis. Feeling better, diarrhea resolved/eating better. History of Present Illness Patient admitted 02/01- due to diverticulitis, pt with hx of bowel perf and abscess, advanced age and intolerance to PO abd, so decision was made to admit for IV abx. She received flagyl and rocephin, kept NPO. Transitioned to liquid diet, then regular diet and discharged on augmentin for 10 days. she is feeling better, eating well - soft/GI easy diet, had pasta yesterday was having diarrhea with augmentin,was advised to cut the dose to once a day diarrhea is resolved now denies abdpain, fevers Physical Exam Vitals & Measurements T:36.5C BP:116/62 SpO2:97% WT:72.8kg WT:72.800kg(Dosing) PHQ2 Data(Data Documented on:02/12/2024 11:16) Emotional health assessment NEGATIVE General: _Alert and oriented, No acute distress Cardiovascular: _Normal rate, Regular rhythm, No murmur, No gallop. Respiratory: _Lungs are clear to auscultation, Respirations are non-labored, Breath sounds are equal Gastrointestinal: _Soft, mild TTP over left upper and lowerquadrantstodeeppalpation,no rebound orguarding, Non-distended, Normal bowel sounds. Assessment/Plan 1.Hospitalization within last 30 days Initial transitional care contact documentation reviewed and was made on 02/04. Medical Decision Making:moderately or highly complex (seen within 14 days of discharge) ([id number]) Medication Reconciliation:medication list reconciled Referrals:none_ Community Resources identified for patient/family:None Durable Medical Equipment:No qualifying data available. Additional Communication Delivered or Planned to:None Needed Patient Education Handouts Given: Patient Education Topics Discussed: _ Follow up Visit:has PCP apt in 5 weeks 2.Diverticulitis Much improved cont augmentindaily for 2 more days cont advancing diet as tolerated discussed return/ED precautions Problem List/Past Medical History Ongoing B12 deficiency [...] Annual Wellness Visit due02/07/23and every 1year Adult Influenza Vaccine due11/26/23and every 1year Due Adult COVID-19 Vaccination due02/12/24Unknown Frequency Adult Social Determinants of Health Screening due02/12/24Unknown Frequency Adult Tdap/Td Vaccine due02/12/24Unknown Frequency Pneumococcal Vaccine Older Adults due02/12/24One-time only Shingles Vaccine due02/12/24One-time only Satisfied(in the past 1 year) Satisfied Adult Influenza Vaccine on03/04/23.Satisfied by JONAS Andre Carli Electronic Signature on File Electronically Reviewed/Signed by: Lynette Hooker DO Author Signature Dt/Tm:02/12/2024 11:34 AM Department of Family Medicine [facility] Patient Care team information Care Team Personnel Name: DO Rush Kristen M Position: Physician - Family Med Member Role: Primary Care Provider Address: [address] [place] [address] [place] Care Team Related Persons Name: OLVIN GLASS"
[2024-07-23] MEDS: HEPARIN SOD 5,000 UNIT/0.5 ML VIAL SQ SCH (20:53)
[2024-07-23] MEDS: LACTATED RINGER'S 1,000 ML IV SCH (20:53)
[2024-07-23] MEDS: LABETALOL HCL 100 MG TAB PO SCH (21:43)
[2024-07-23] MEDS: traZODone HCL 50 MG TAB PO SCH (21:44)
[2024-07-23] MEDS: METOPROLOL TARTRATE 50 MG TAB PO SCH (21:44)
[2024-07-24 05:04] LABS: Albumin Globulin Ratio 1.4 (0.9-2); Albumin Level 3.4 gm/dl (3.4-5.0); BUN Creatinine Ratio 26.8 (10-20); Bilirubin,Total 0.4 mg/dl (0.2-1.0); Calcium 8.2 mg/dl (8.6-10.3); Creatinine Clr Calc Pharmacy 33.1 ml/min; Globulin 2.4 gm/dl (2.5-4.0); Potassium 3.6 mmol/L (3.5-5.1); Total Protein 5.8 gm/dl (6.0-8.3)
[2024-07-24] MEDS: INDAPAMIDE 1.25 MG TAB PO SCH (08:42)
[2024-07-24] MEDS: ADVANCED PROBIOTIC 625 MG CAPSULE PO SCH (08:42)
[2024-07-24] MEDS: FELODIPINE 5 MG TABCR PO SCH (08:43)
[2024-07-24] MEDS: LOSARTAN POTASSIUM 50 MG TAB PO SCH (08:43)
--- NOTE | 2024-07-24 13:33 | XCELERA ---
[id number] \\[email or web address]_[email or web address]\[id number]
--- NOTE | 2024-07-24 16:31 | Hospitalist Progress Note ---
Date of Service July 24, 2024 Assessment & Plan (1) COVID-19: (2) Hypoxia: (3) Syncope: (4) HTN (hypertension): Plan 88-year-old female presents to the ER following a syncopal event on 07/23/2024. She suddenly felt funny for a few seconds and then lost consciousness and fell on the kitchen floor. No chest pain, palpitations or shortness of breath prior to falling. She pressed her alarm titus after regaining consciousness and was brought to the emergency room. Her family noted 2 days of nasal congestion and cough prior to admission. O2 sats less than for 94% in the ER, now weaned off O2 and stable on RA. CRP elevated with some lung changes noted on CT cervical spine. Discussed risk/benefits of remdesivir and dexamethasone on admission and patient agreed to start these. #COVID / hypoxia Continue remdesivir 100 mg IV q24h Continue dexamethasone 6 mg IV daily Continue incentive spirometer Now stable on room air, suspect can discontinue remdesivir and dexamethasone tomorrow 07/25 if O2 sats >94% #Syncope Most likely vasovagal in the setting of COVID and multiple antihypertensives Continue on her current antihypertensives for now Echocardiogram revealed EF 40-45% with small pericardial effusion without echo c ardiographic evidence of tamponade. Global hypokinesis. Mild AR and MR (MR less significant than study on 09/01/2021). Orthostatic vital signs positive from sitting to standing, though patient remained asymptomatic PT/OT recommending short term rehab #Hypertension On both labetalol and metoprolol (this is not a mistake as confirmed by previous cardiology notes as she is not on the maximum dose on either) Continue felodipine, indapamide and irbesartan VTE prophylaxis - heparin 5000 units SQ BID Dispo: Continued inpatient stay, PT/OT recommending short-term rehab, CM following Admission and Anticipated Discharge Date Admission Date: July 23, 2024 Subjective Patient seen and evaluated at bedside in the ED. She reports doing well from a respiratory standpoint, denies difficulty breathing or shortness of breath. She has been stable on room air all day today. She does note a productive cough, with reported clear/yellow-green mucus. She reports episodes of diarrhea earlier this morning where she was incontinent of stool, with associated abdominal cramping at that time. She denies nausea, vomiting, ongoing abdominal pain or cramping. Review of Systems Review of Systems: All systems reviewed & are unremarkable except as noted in Subjective Physical Exam Physical Exam: General: No acute distress, nondiaphoretic, well-developed, well-nourished. Skin: The skin was without rashes, erythema, edema, or bruising. Cardiac: Regular rate and rhythm, systolic murmur noted. Pulm: Clear to auscultation bilaterally without wheezes, rales or rhonchi. Normal respiratory effort. 93% on room air. Abdominal: Soft, nontender, nondistended. Bowel sounds present. Neuro: A&O x3. No focal neurological deficits. Results & Data Results & Data Vital Signs (Past 12 Hours) Vital Signs Pulse Resp BP Pulse Ox Pulse Ox O2 Del Method O2 Flow Rate 07/24/24 14:47 93 0 07/24/24 14:09 93 07/24/24 13:55 81 18 119/69 95 Room Air 07/24/24 13:36 78 19 133/77 93 Room Air 07/24/24 12:06 74 14 118/73 94 Room Air 07/24/24 11:59 78 16 118/73 94 Room Air 07/24/24 10:39 78 17 136/77 95 Room Air 07/24/24 10:37 77 07/24/24 07:13 74 20 159/87 H 93 Room Air 07/24/24 07:04 77 Laboratory Results Reviewed CMP Diagnostic Findings Reviewed echocardiogram PG Care Time/CCT Total # of Minutes Spent Total Time Spent with Patient: Total time spent is greater than 50% in coordination of care (as documented) at patient's floor/unit and/or counseling patient: Coding Level of Care Code 68125 SUB INP/OBS CARE 2/35MIN Diagnoses COVID-19 U07.1 Hypoxia R09.02 Vasovagal syncope R55 Syncope type: vasovagal syncope Essential hypertension I10 Hypertension type: essential hypertension (3) Syncope Syncope type: vasovagal syncope Qualified Code(s): R55 - Syncope and collapse (4) HTN (hypertension) Hypertension type: essential hypertension Qualified Code(s): I10 - Essential (primary) hypertension
[2024-07-24] MEDS: REMDESIVIR 100 MG in SODIUM CHLORIDE 0.9% 230 ML IV SCH (20:46)
[2024-07-24] MEDS: ACETAMINOPHEN 325 MG TAB PO PRN (21:38)
--- NOTE | 2024-07-25 11:45 | Hospitalist Progress Note ---
Date of Service July 25, 2024 Assessment & Plan (1) COVID-19: (2) Hypoxia: (3) Syncope: (4) HTN (hypertension): Plan 88-year-old female presents to the ER following a syncopal event on 07/23/2024. She suddenly felt funny for a few seconds and then lost consciousness and fell on the kitchen floor. No chest pain, palpitations or shortness of breath prior to falling. She pressed her alarm titus after regaining consciousness and was brought to the emergency room. Her family noted 2 days of nasal congestion and cough prior to admission. O2 sats less than for 94% in the ER, now weaned off O2 and stable on RA. CRP elevated with some lung changes noted on CT cervical spine. Discussed risk/benefits of remdesivir and dexamethasone on admission and patient agreed to start these. #COVID / hypoxia Received 2 days worth of remdesivir 100 mg IV q24h and dexamethasone 6 mg IV daily, which are now discontinued as SpO2 >94% on room air, patient asymptomatic Continue incentive spirometer #Syncope Most likely vasovagal in the setting of COVID and multiple antihypertensives Continue on her current antihypertensives for now Echocardiogram revealed EF 40-45% with small pericardial effusion without echo cardiographic evidence of tamponade. Global hypokinesis. Mild AR and MR (MR less significant than study on 09/01/2021). Orthostatic vital signs positive from sitting to standing, though patient remained asymptomatic PT/OT recommending short term rehab. Further discussed with RN and patient. Patient would like to return home with HH, RN and myself feel this is reasonable based on her activity in her room. Will coordinate with case management #Hypertension On both labetalol and metoprolol (this is not a mistake as confirmed by previous cardiology notes as she is not on the maximum dose on either) Continue felodipine, indapamide and irbesartan VTE prophylaxis - heparin 5000 units SQ BID Dispo: Patient would like to return home with HH. This is a reasonable option based on her activity in her hospital room and the support she has at home. CM informed to help coordinate. Anticipate discharge within the next 24 hours Discontinued dexamethasone, remdesivir Discussed discharge planning with case management Admission and Anticipated Discharge Date Admission Date: July 23, 2024 Subjective Patient seen and evaluated at bedside. She reports feeling tired due to being transferred to the floor from the ED at 0300. She states she was confused and disoriented at that time, but feels better and back to her baseline now. She denies any respiratory symptoms including dyspnea or cough. She denies any further episodes of diarrhea since yesterday morning. She denies any lightheadedness or dizziness when standing/with activities. We discussed rehab vs return home with HH, and patient would like to return home with HH. RN reports patient does well with her walker and is independent in the bathroom. Returning home seems reasonable. Will coordinate with case management. Patient denies any further complaints or concerns at this time. Physical Exam Physical Exam: General: No acute distress, nondiaphoretic, well-developed, well-nourished. Cardiac: Regular rate and rhythm, systolic murmur noted. Pulm: Clear to auscultation bilaterally without wheezes, rales or rhonchi. Normal respiratory effort. 95% on room air. Abdominal: Soft, nontender, nondistended. Bowel sounds present. Neuro: A&O x3. No focal neurological deficits. Results & Data Results & Data Vital Signs (Past 12 Hours) Vital Signs Temp Pulse Pulse Resp BP Pulse Ox O2 Del Method 07/25/24 08:53 Room Air 07/25/24 08:25 97.7 F 65 16 159/91 H 95 Room Air 07/25/24 07:00 66 07/25/24 03:24 Room Air 07/25/24 01:42 67 07/25/24 01:33 97.5 F L 69 18 175/94 H 94 Room Air Diagnostic Findings Reviewed telemetry - NSR in 60s, with PACs, PVCs, IVCD PG Care Time/CCT Total # of Minutes Spent Total Time Spent with Patient: Total time spent is greater than 50% in coordination of care (as documented) at patient's floor/unit and/or counseling patient: Coding Level of Care Code 70528 SUB INP/OBS CARE 3/50MIN Diagnoses COVID-19 U07.1 Hypoxia R09.02 Vasovagal syncope R55 Syncope type: vasovagal syncope Essential hypertension I10 Hypertension type: essential hypertension (3) Syncope Syncope type: vasovagal syncope Qualified Code(s): R55 - Syncope and collapse (4) HTN (hypertension) Hypertension type: essential hypertension Qualified Code(s): I10 - Essential (primary) hypertension
[2024-07-26] MEDS: SODIUM CHLORIDE 0.9% 250 ML IV ONE ×2 (10:45→15:27)
[2024-07-26] MEDS: dexAMETHasone 4 MG TAB PO ONE (10:46)
--- NOTE | 2024-07-26 10:52 | Hospitalist Progress Note ---
Date of Service July 26, 2024 Assessment & Plan (1) COVID-19: (2) Hypoxia: (3) Syncope: (4) HFrEF (heart failure with reduced ejection fraction): (5) HTN (hypertension): Plan 88-year-old female presents to the ER following a syncopal event on 07/23/2024. She suddenly felt funny for a few seconds and then lost consciousness and fell on the kitchen floor. No chest pain, palpitations or shortness of breath prior to falling. She pressed her alarm titus after regaining consciousness and was brought to the emergency room. Her family noted 2 days of nasal congestion and cough prior to admission. O2 sats <94% in the ER, now weaned off O2 and stable on RA. CRP elevated with some lung changes noted on CT cervical spine. Discussed risk/benefits of remdesivir and dexamethasone on admission and patient agreed to start these. #COVID / hypoxia Resumed remdesivir 100 mg IV q24h and dexamethasone 6 mg PO daily - recommend 7 day total treatment course for steroids Continue incentive spirometer Remaining stable on room air #Syncope / Orthostatic hypotension Most likely orthostasis/vasovagal in the setting of COVID and multiple antihypertensives Indapamide held Orthostatic vital signs positive with standing - now symptomatic with significant weakness (no lightheaded/dizzy) 250 cc bolus NSS x 2 - caution with IV fluid given HFrEF TEDs bilaterally to knees #HFrEF Echocardiogram revealed EF 40-45% with small pericardial effusion without echo cardiographic evidence of tamponade. Global hypokinesis. Mild AR and MR (MR less significant than study on 09/01/2021). Patient does not follow with reports analysis manager routinely - recommend re-establishing with cardiology outpatient #Hypertension On both labetalol and metoprolol (this is not a mistake as confirmed by previous cardiology notes as she is not on the maximum dose on either) Continue felodipine, indapamide and irbesartan VTE prophylaxis - heparin 5000 units SQ BID Dispo: Plan for patient to return home with HH. Now with symptomatic orthostatic hypotension. Anticipate DC in next 24-48 hours. Restarted dexamethasone and remdesivir Held Lozol Repeated orthostatic vital signs Ordered IV fluid and TEDs Updated daughter via phone call Admission and Anticipated Discharge Date Admission Date: July 23, 2024 Supervising Physician Co-Signing Physician Notes PA Supervision Note: I did not personally see or examine the patient today, but I verified all bravo points of CHARLOTTE Corbett's assessment and plan with the following exceptions/additions: With orthostasis-consider stopping labetalol. Stop indapamide and give gentle IVFs Resume dexamethasone and remdesevir as per current COVID guidelines for COVID with hypooxia Subjective Patient seen and evaluated at bedside. She reports feeling significantly weaker today. She just had orthostatic vital signs obtained prior to my visit, and she states that when standing, she felt very weak and that her legs were going to give out. Her standing BP was very hypotensive at 77/44. She denies lightheadedness or dizziness. She denies other symptoms including chest pain, dyspnea, cough, headache, abdominal pain, nausea, diarrhea. Initially planned on discharging patient back home with home health today, however given significant weakness with hypotension, recommended continued inpatient stay. Patient is understanding and agreeable. Will call daughter with update. No additional complaints or concerns at this time. Review of Systems Review of Systems: All systems reviewed & are unremarkable except as noted in Subjective Physical Exam Physical Exam: General: No acute distress, nondiaphoretic, well-developed, well-nourished. Cardiac: Regular rate and rhythm, systolic murmur noted. Pulm: Clear to auscultation bilaterally without wheezes, rales or rhonchi. N ormal respiratory effort. 94% on room air. Abdominal: Soft, nontender, nondistended. Bowel sounds present. Neuro: A&O x3. No focal neurological deficits. Results & Data Results & Data Vital Signs (Past 12 Hours) Vital Signs Temp Pulse Pulse Resp BP BP Pulse Ox 07/26/24 08:34 65 07/26/24 07:34 97.7 F 66 18 135/74 94 07/26/24 04:06 98.4 F 65 18 144/81 H 95 07/25/24 23:40 97.7 F 67 16 145/87 H 95 07/25/24 23:03 57 L O2 Del Method 07/26/24 08:34 07/26/24 07:34 Room Air 07/26/24 04:06 Room Air 07/25/24 23:40 Room Air 07/25/24 23:03 Diagnostic Findings Reviewed telemetry NSR in 70s with PACs, PVCs, IVCDs PG Care Time/CCT Total # of Minutes Spent Total Time Spent with Patient: Total time spent is greater than 50% in coordination of care (as documented) at patient's floor/unit and/or counseling patient: Coding Level of Care Code 29837 SUB INP/OBS CARE 3/50MIN Diagnoses COVID-19 U07.1 Hypoxia R09.02 Vasovagal syncope R55 Syncope type: vasovagal syncope HFrEF (heart failure with reduced ejection fraction) I50.20 Essential hypertension I10 Hypertension type: essential hypertension (3) Syncope Syncope type: vasovagal syncope Qualified Code(s): R55 - Syncope and collapse (5) HTN (hypertension) Hypertension type: essential hypertension Qualified Code(s): I10 - Essential (primary) hypertension
[2024-07-26] MEDS: REMDESIVIR 200 MG in SODIUM CHLORIDE 0.9% 210 ML IV STA (15:27)
[2024-07-27] MEDS: dexAMETHasone 1 MG TAB PO SCH (09:19)
--- NOTE | 2024-07-27 10:58 | Hospitalist Progress Note ---
Date of Service July 27, 2024 Assessment & Plan (1) COVID-19: (2) Hypoxia: (3) Syncope: (4) HFrEF (heart failure with reduced ejection fraction): (5) HTN (hypertension): Plan 88-year-old female presents to the ER following a syncopal event on 07/23/2024. She suddenly felt funny for a few seconds and then lost consciousness and fell on the kitchen floor. No chest pain, palpitations or shortness of breath prior to falling. She pressed her alarm titus after regaining consciousness and was brought to the emergency room. Her family noted 2 days of nasal congestion and cough prior to admission. O2 sats <94% in the ER, now weaned off O2 and stable on RA. CRP elevated with some lung changes noted on CT cervical spine. Discussed risk/benefits of remdesivir and dexamethasone on admission and patient agreed to start these. Initially not interested in rehab, however after co nsidering her generalized weakness and concern regarding safety at home alone, she is now agreeable to rehab. #COVID / hypoxia Resumed remdesivir 100 mg IV q24h and dexamethasone 6 mg PO daily - recommend 7 day total treatment course for steroids Continue incentive spirometer Remaining stable on room air #Syncope / Orthostatic hypotension Most likely orthostasis/vasovagal in the setting of COVID and multiple antihypertensives Indapamide and labetalol held, losartan reduced to 50 mg daily Continue TEDs bilaterally to knees Orthostatic vital signs positive with standing - now symptomatic with significant weakness (no lightheaded/dizzy) #HFrEF Echocardiogram revealed EF 40-45% with small pericardial effusion without echo cardiographic evidence of tamponade. Global hypokinesis. Mild AR and MR (MR less significant than study on 09/01/2021). 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 Held labetalol Decreased losartan Updated daughter and son-in-law at bedside Informed CM about decision for rehab Admission and Anticipated Discharge Date Admission Date: July 23, 2024 Subjective Patient seen and evaluated at bedside with her daughter and son-in-law present. She is tearful today, depressed regarding feeling weak and not herself. She not es a reduced appetite, but denies any N/V/D, constipation, abdominal pain. Her orthostatics remained positive this morning, again she denied any dizziness or lightheadedness and rather described generalized weakness with sensation of "legs about to give out." We discussed my concern for her safety at home alone with this degree of weakness, family in agreement. Although patient initially did not want to go to rehab, she is now agreeable. Physical Exam Physical Exam: General: No acute distress, nondiaphoretic, well-developed, well-nourished. Tearful today and depressed regarding acute illness. Cardiac: Regular rate and rhythm, systolic murmur noted. Pulm: Clear to auscultation bilaterally without wheezes, rales or rhonchi. Normal respiratory effort. 95% on room air. Abdominal: Soft, nontender, nondistended. Bowel sounds present. Neuro: A&O x3. No focal neurological deficits. Results & Data Results & Data Vital Signs (Past 12 Hours) Vital Signs Temp Pulse Pulse Resp BP BP Pulse Ox 07/27/24 08:06 98.1 F 74 18 183/83 H 95 07/27/24 06:45 60 07/27/24 04:18 98.1 F 75 18 159/77 H 93 07/27/24 00:23 74 07/26/24 23:08 98.1 F 79 18 153/90 H 95 O2 Del Method 07/27/24 08:06 Room Air 07/27/24 06:45 07/27/24 04:18 Room Air 07/27/24 00:23 07/26/24 23:08 Room Air PG Care Time/CCT Total # of Minutes Spent Total Time Spent with Patient: Total time spent is greater than 50% in coordination of care (as documented) at patient's floor/unit and/or counseling patient: Coding Level of Care Code 60729 SUB INP/OBS CARE 3/50MIN Diagnoses COVID-19 U07.1 Hypoxia R09.02 Vasovagal syncope R55 Syncope type: vasovagal syncope HFrEF (heart failure with reduced ejection fraction) I50.20 Essential hypertension I10 Hypertension type: essential hypertension (3) Syncope Syncope type: vasovagal syncope Qualified Code(s): R55 - Syncope and collapse (5) HTN (hypertension) Hypertension type: essential hypertension Qualified Code(s): I10 - Essential (primary) hypertension
[2024-07-27] MEDS: REMDESIVIR 100 MG in SODIUM CHLORIDE 0.9% 230 ML IV SCH (15:12)
[2024-07-28] MEDS: LOSARTAN POTASSIUM 50 MG TAB PO SCH (08:05)
--- NOTE | 2024-07-28 15:37 | Hospitalist Progress Note ---
Date of Service July 28, 2024 Assessment & Plan (1) COVID-19: (2) Hypoxia: (3) Syncope: (4) HFrEF (heart failure with reduced ejection fraction): (5) HTN (hypertension): Plan 88-year-old female presents to the ER following a syncopal event on 07/23/2024. She suddenly felt funny for a few seconds and then lost consciousness and fell on the kitchen floor. No chest pain, palpitations or shortness of breath prior to falling. She pressed her alarm titus after regaining consciousness and was brought to the emergency room. Her family noted 2 days of nasal congestion and cough prior to admission. O2 sats <94% in the ER, now weaned off O2 and stable on RA. CRP elevated with some lung changes noted on CT cervical spine. Discussed risk/benefits of remdesivir and dexamethasone on admission and patient agreed to start these. Initially not interested in rehab, however after co nsidering her generalized weakness and concern regarding safety at home alone, she is now agreeable to rehab. #COVID / hypoxia Continue dexamethasone 6 mg PO daily through 07/30 for 7 day total steroid course Remdesivir completed 07/28 Continue incentive spirometer Remaining stable on room air #Syncope / Orthostatic hypotension Most likely orthostasis/vasovagal in the setting of COVID and multiple antihypertensives Indapamide and labetalol held, losartan reduced to 50 mg daily Continue TEDs bilaterally to knees. Trial abdominal binder Orthostatic vital signs positive with standing, though improving. No dizziness/lightheadedness, but significant weakness #HFrEF Echocardiogram revealed EF 40-45% with small pericardial effusion without echo cardiographic evidence of tamponade. Global hypokinesis. Mild AR and MR (MR less significant than study on 09/01/2021). 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 Valles in past) #Hypertension On both labetalol and metoprolol (this is not a mistake as confirmed by previous cardiology notes as she is not on the maximum dose on either) Hold labetalol Losartan decreased to 50 mg daily Continue felodipine, metoprolol VTE prophylaxis - heparin 5000 units SQ BID Dispo: Initially not interested in rehab, however after considering her generalized weakness and concern regarding safety at home alone, she is now agreeable to rehab. Please have CM make referrals on Saturday 07/29 Updated daughter at bedside Admission and Anticipated Discharge Date Admission Date: July 23, 2024 Subjective Patient seen and evaluated at bedside. She is in better spirits today. She reports she feels very tired when standing / with ambulation. She has a fair appetite and is sleeping well at night. She is still agreeable to rehab on discharge. No additional complaints or concerns at this time. Physical Exam Physical Exam: General: No acute distress, nondiaphoretic, well-developed, well-nourished. Better spirits today. Cardiac: Regular rate and rhythm, systolic murmur noted. Pulm: Clear to auscultation bilaterally without wheezes, rales or rhonchi. Normal respiratory effort. 95% on room air. Abdominal: Soft, nontender, nondistended. Bowel sounds present. Neuro: A&O x3. No focal neurological deficits. Results & Data Results & Data Vital Signs (Past 12 Hours) Vital Signs Temp Pulse Pulse Resp BP Pulse Ox O2 Del Method 07/28/24 13:42 72 07/28/24 07:50 97.9 F 70 17 181/85 H 95 Room Air 07/28/24 06:45 72 PG Care Time/CCT Total # of Minutes Spent Total Time Spent with Patient: Total time spent is greater than 50% in coordination of care (as documented) at patient's floor/unit and/or counseling patient: Coding Level of Care Code 36276 SUB INP/OBS CARE 2/35MIN Diagnoses COVID-19 U07.1 Hypoxia R09.02 Vasovagal syncope R55 Syncope type: vasovagal syncope HFrEF (heart failure with reduced ejection fraction) I50.20 Essential hypertension I10 Hypertension type: essential hypertension (3) Syncope Syncope type: vasovagal syncope Qualified Code(s): R55 - Syncope and collapse (5) HTN (hypertension) Hypertension type: essential hypertension Qualified Code(s): I10 - Essential (primary) hypertension
[2024-07-29 07:57] LABS: Basophils # (auto) 0.02 K/uL (0.00-0.20); Basophils % (auto) 0.2 %; Eosinophils # (auto) 0.04 K/uL (0.00-0.50); Eosinophils % (auto) 0.5 %; Hematocrit (blood only) 42.1 % (37.0-47.0); Hemoglobin 14.8 g/dl (12.0-16.0); Immature Granulocytes # (auto) 0.12 K/uL (0.01-0.20); Immature Granulocytes % (auto) 1.5 %; Lymphocytes # (auto) 2.62 K/uL (1.20-3.40); Lymphocytes % (auto) 31.8 %; Mean Corpuscular Hemoglobin 30.5 pg (25.0-34.0); Mean Corpuscular Hgb Conc 35.2 g/dL (32.0-36.0); Mean Corpuscular Volume 86.8 fL (80.0-100.0); Mean Platelet Volume 9.7 fL (9.4-12.4); Monocytes # (auto) 1.28 K/uL (0.11-0.59); Monocytes % (auto) 15.5 %; Neutrophils # (auto) 4.16 K/uL (1.40-6.50); Neutrophils % (auto) 50.5 %; Platelet Count 277 K/uL (130-400); RDW Coefficient of Variation 13.4 % (11.5-14.5); RDW Standard Deviation 42.5 fL (36.4-46.3); Red Blood Count 4.85 M/uL (4.20-5.40); White Blood Count 8.24 K/ul (4.8-10.8)
[2024-07-29 08:05] LABS: Albumin Globulin Ratio 1.6 (0.9-2); Albumin Level 3.6 gm/dl (3.4-5.0); BUN Creatinine Ratio 35.2 (10-20); Bilirubin,Total 0.8 mg/dl (0.2-1.0); Calcium 8.9 mg/dl (8.6-10.3); Creatinine Clr Calc Pharmacy 35.3 ml/min; Globulin 2.2 gm/dl (2.5-4.0); Potassium 3.2 mmol/L (3.5-5.1); Total Protein 5.8 gm/dl (6.0-8.3)
[2024-07-29] MEDS: POTASSIUM CHLORIDE CRTAB 20 MEQ TABCR PO STA (11:00)
--- NOTE | 2024-07-29 11:09 | Hospitalist Progress Note ---
Date of Service July 29, 2024 Assessment & Plan (1) Syncope: (2) COVID-19: (3) Hypoxia: (4) HFrEF (heart failure with reduced ejection fraction): (5) HTN (hypertension): Plan 88-year-old female with a h/o HTN, HFpEF,presents to the ER following a syncopal event on 07/23/2024. She suddenly felt lightheaded after standing up and walking and then lost consciousness and fell on the kitchen floor. No chest pain, palpitations or shortness of breath prior to falling. She pressed her alarm titus after regaining consciousness and was brought to the emergency room. Her family noted 2 days of nasal congestion and cough prior to admission. O2 sats <94% in the ER, now weaned off O2 and stable on RA after starting dexamethasone on admission. CRP elevated with some pneumonitis of lung apices seen on CT cervical spine. #COVID / hypoxia-improve, weaned to room air after being on dexamethasone. CXR neg but CT C-spine showed pneumonitis in lung apices -Continue dexamethasone 6 mg PO daily through 07/30 for 7 day total steroid course -Remdesivir completed 07/28 -Continue incentive spirometer #Syncope/Orthostatic hypotension -in setting of having COVID and on multiple antihypertensives. Remains orthostatic but not lightheaded with standing and walking-is just completely exhausted. Indapamide and labetalol stopped, losartan reduced to 50 mg daily, and received boluses of IVFs after admission. No arrhythmias on tele except brief PAT. Ok to continue metoprolol -Continue TEDs bilaterally to knees. Trial abdominal binder ordered -check orthostatics daily -liberalize salt in diet #Hypokalemia-persists -continue to replace with po KCl -follow BMP, mag in AM #Chronic HFmrEF-Echocardiogram revealed EF 40-45% with small pericardial effusion without echo cardiographic evidence of tamponade. Global hypokinesis. Mild AR and MR (MR less significant than study on 09/01/2021). 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 Was hypovolemic on admission. IVFs given and indapamide stopped - recommend re-establishing with cardiology outpatient (has seen Dr. Valles in past) -continue good BP control but orthostasis makes this difficult #Hypertension-On both labetalol and metoprolol (this is not a mistake as confirmed by previous cardiology notes as she is not on the maximum dose on either). With orthostasis, need to accept high BPs at rest so doesn't drop to 80 systolic with standing -stopped labetalol, indapamide -ARB cut in half -Continue felodipine, metoprolol VTE prophylaxis - heparin 5000 units SQ BID Dispo: plan to dc to rehab when available and insurance auth obtained Admission and Anticipated Discharge Date Admission Date: July 23, 2024 Subjective Pt feeling down about being in hospital for so long. Not lightheaded with getting up and walking but gets extremely exhausted with minimal exertion. No SOB or CP. Is on room air. Tele with NSR 80s, and a brief run of PAT to the 130s. Physical Exam Constitutional: WD/WN, vitals as above Respiratory: normal respiratory effort, lungs clear to auscultation Cardiovascular: RRR, no murmur, no edema Gastrointestinal (Abdomen): normal bowel sounds, soft, nontender, no hepatosplenomegaly Psychiatric: Orientation: alert, oriented x 3 and cooperative Affect: + depressed affect Results & Data Results & Data Vital Signs (Past 12 Hours) Vital Signs Temp Pulse Resp BP Pulse Ox O2 Del Method 07/29/24 07:52 36.4 C L 74 18 165/77 H 94 Room Air 07/29/24 03:43 36.5 C 72 16 154/72 H 94 Room Air 07/28/24 23:25 36.6 C 70 18 142/74 H 95 Room Air Laboratory Results CBC, CMP reviewed PG Care Time/CCT Total # of Minutes Spent Total Time Spent with Patient: Total time spent is greater than 50% in coordination of care (as documented) at patient's floor/unit and/or counseling patient: Coding Level of Care Code 25508 SUB INP/OBS CARE 2/35MIN Diagnoses Vasovagal syncope R55 Syncope type: vasovagal syncope COVID-19 U07.1 Hypoxia R09.02 HFrEF (heart failure with reduced ejection fraction) I50.20 Essential hypertension I10 Hypertension type: essential hypertension (1) Syncope Syncope type: vasovagal syncope Qualified Code(s): R55 - Syncope and collapse (5) HTN (hypertension) Hypertension type: essential hypertension Qualified Code(s): I10 - Essential (primary) hypertension
[2024-07-30 08:01] LABS: BUN Creatinine Ratio 41.8 (10-20); Calcium 8.9 mg/dl (8.6-10.3); Creatinine Clr Calc Pharmacy 32.7 ml/min; Potassium 3.4 mmol/L (3.5-5.1)
[2024-07-30] MEDS: POTASSIUM CHLORIDE CRTAB 20 MEQ TABCR PO STA (09:17)
[2024-07-30 11:22] VITALS: PULSE 70; RESP 18; TEMP 97.3; O2SAT 95
--- NOTE | 2024-07-30 13:20 | Discharge Summary ---
Discharge Summary Date of Service July 30, 2024 Principal Dx & Hospital Course #1 = Principal Diagnosis (1) Syncope: (2) COVID-19: (3) Hypoxia: (4) HFrEF (heart failure with reduced ejection fraction): (5) HTN (hypertension): Plan 88-year-old female with a h/o HTN, HFpEF,presents to the ER following a syncopal event on 07/23/2024. She suddenly felt lightheaded after standing up and walking and then lost consciousness and fell on the kitchen floor. No chest pain, palpitations or shortness of breath prior to falling. She pressed her alarm titus after regaining consciousness and was brought to the emergency room. Her family noted 2 days of nasal congestion and cough prior to admission. O2 sats <94% in the ER, now weaned off O2 and stable on RA after starting dexamethasone on admission. CRP elevated with some pneumonitis of lung apices seen on CT cervical spine. #COVID / hypoxia-improved/resolved, weaned to room air after being on dexamethasone. CXR neg but CT C-spine showed pneumonitis in lung apices -completed dexamethasone 6 mg PO daily through 07/30 for 7 day total steroid course -Remdesivir 5 day course completed 07/28 #Syncope/Orthostatic hypotension -in setting of having COVID and on multiple antihypertensives. Remains orthostatic but not lightheaded with standing and walking-is just completely exhausted. Indapamide and labetalol stopped, irbesar rosenberg reduced to 150 mg daily, and received boluses of IVFs after admission. No arrhythmias on tele except brief PAT. Ok to continue metoprolol same dose -Continue TEDs bilaterally. Trial abdominal binder ordered but not attempted due to patient preference -check orthostatics at rehab -liberalize salt in diet #Hypokalemia-persists, mild -continue to replace with po KCl as needed -follow BMP in 3-5 days at rehab #Chronic HFmrEF-Echocardiogram revealed EF 40-45% with small pericardial effusion without echo cardiographic evidence of tamponade. Global hypokinesis. Mild AR and MR (MR less significant than study on 09/01/2021). 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 Was hypovolemic on admission. IVFs given and indapamide stopped - recommend re-establishing with cardiology outpatient (has seen Dr. Valles in past) -continue good BP control but orthostasis makes this difficult #Hypertension-On both labetalol and metoprolol (this is not a mistake as confirmed by previous cardiology notes as she is not on the maximum dose on either). With orthostasis, need to accept high BPs at rest so doesn't drop to 80 systolic with standing -stopped labetalol, indapamide -ARB cut in half -Continue felodipine, metoprolol VTE prophylaxis - heparin 5000 units SQ BID Dispo: plan to dc to rehab today Notes For Next Care Provider check BMP in 3-5 days Follow orthostatic vital signs Medication Changes From Visit see list Admission HPI Per Admitting Provider Lauren Ho is an 88-year-old female who presents to the ER with syncopal event earlier today. Her family noted 2 days of nasal congestion and cough. No chest pain, sinus pain or shortness of breath. Yesterday she slept from 6 AM to 2 PM and missed for her morning medications and breakfast and was significantly more confused than usual. This appears to have resolved today. However today around 10:30 AM to 11 AM she just got off the phone with her daughter and she went to put her In the microwave and suddenly felt funny for a few seconds and then lost consciousness and fell on the kitchen floor. No chest pain, palpitations or shortness of breath prior to falling. She pressed her alarm titus after regaining consciousness and was brought to the emergency room. She denies any injuries from the fall. She currently feels back to her normal self. She lives alone in an over 55-year-old community without steps. No gastrointestinal or urinary complaints. Her COVID test was positive in the emergency room. She has never had COVID before but has had previous vaccinations although she is unclear whether she was vaccinated this year. Discharge Exam Constitutional WD/WN, vitals as above Respiratory normal respiratory effort, lungs clear to auscultation Cardiovascular RRR, no murmur, no edema Gastrointestinal (Abdomen) normal bowel sounds, soft, nontender, no hepatosplenomegaly Psychiatric Orientation: alert, oriented x 3 and cooperative Discharge Plan Discharge Items Patient Disposition: Transfer Longterm Fac Reason For Visit: SYNCOPE, RECURRENT FALLS Discharge Diagnosis: COVID-19 Orthostatic hypotension Condition on Discharge: Fair Activity: As commented below Lifting: Gradually increase as tolerated Bathing: No limitations Exercise/Sports: Gradually increase as tolerated Non-emergency contact: Primary Care Provider Call non-emergency contact if: you have any medication questions and your symptoms worsen Follow-up/Referrals: Tracie Rush DO [Primary Care Provider] - (Follow up within 2 weeks after discharge from rehab) Diet: Regular Addtl Attending Provider Instructions: You were admitted with COVID-19 and a fall from orthostasis. This means your blood pressure drops when you stand up. Some of your blood pressure medications were stopped and others had their dose lowered. This orthostasis may have been from a side effect of your medications, but also can happen when one has COVID. Please continue to wear the thigh high WILLY hose during the daytime. You can sprinkle salt on your food as well. You finished out courses of dexamethasone and Remdesevir as treatment for your COVID and are no longer requiring any supplemental oxygen. Your potassium levels have been mildly low and you were given potassium orally to replace this. Please have your BMP checked at the rehab in 3-5 days. While you were here, you had an echocardiogram which again showed a mild reduction in the strength of your heart. It is recommended that you follow up with a Strategic Client Executive in the future for regular treatment and evaluation of this issue. Pending Studies at Discharge: No Stand-Alone Forms: My [facility] Skilled Items Patient informed of condition?: Yes DNR: Yes Discharge Level of Care: Skilled Communicable Disease: Yes (COVID-19) Discharge Prognosis: Improving Lines: None Urinary Catheter: No Medications and DC Order Prescriptions: Continued metoprolol tartrate 50 mg tablet 50 mg PO BID Qty: 180 3RF trazodone 50 mg tablet 50 mg PO HS felodipine 10 mg tablet extended release 24 hr 10 mg PO QAM cholecalciferol (vitamin D3) [Vitamin D3] 2,000 unit Tablet 2,000 unit PO QAM Caltrate 600 plus D 600 mg (1,500 mg)-800 unit Tablet,Chewable 1 tab PO PM acetaminophen 650 mg Tablet Extended Release 650 - 1,300 mg PO Q12H PRN (Reason: Pain) Probiotic 3 billion cell Capsule 0 mmu cells PO DAILY Changed irbesartan 150 mg tablet 150 mg PO DAILY Qty: 30 0RF Discontinued labetalol 100 mg tablet 100 mg PO BID Qty: 180 3RF Rx Instructions: TAKEN IN ADDITION TO REDUCED DOSE METOPROLOL indapamide 1.25 mg tablet 1.25 mg PO QAM Discharge Orders: Discharge Order (Routine); Ordered 07/30/24 Ordered By: Oralia Banuelos Admission Data Admit Date/Time: 07/23/24 15:49 Attending Provider: Oralia Banuelos Admit Provider: Pacheco Ash Primary Care Provider: Tracie Rush Other Providers: Pacheco Ash; [facility]; [facility]; [facility] Stay Data Consultations 07/23/24 15:41 ED Decision to Admit Stat Diagnostic Imagining Performed 07/23/24 12:19 CT cervical spine wo con Stat CT head/brain wo con Stat ECHO Pending Results Patient Have Any Pending Studies at Discharge: No Discharge Instructions Given to Patient (Per Discharging Provider) You were admitted with COVID-19 and a fall from orthostasis. This means your blood pressure drops when you stand up. Some of your blood pressure medications were stopped and others had their dose lowered. This orthostasis may have been from a side effect of your medications, but also can happen when one has COVID. Please continue to wear the thigh high WILLY hose during the daytime. You can sprinkle salt on your food as well. You finished out courses of dexamethasone and Remdesevir as treatment for your COVID and are no longer requiring any supplemental oxygen. Your potassium levels have been mildly low and you were given potassium orally to replace this. Please have your BMP checked at the rehab in 3-5 days. While you were here, you had an echocardiogram which again showed a mild reduction in the strength of your heart. It is recommended that you follow up with a Strategic Client Executive in the future for regular treatment and evaluation of this issue. Total Time Total Time Spent Total Time Spent (In Minutes): 35 min Total Time Includes: Examination of the Patient, Discharge Planning and Medication Reconciliation Coding Level of Care Code 46863 INP/OBS DISCH >30 MIN Diagnoses Vasovagal syncope R55 Syncope type: vasovagal syncope COVID-19 U07.1 Hypoxia R09.02 HFrEF (heart failure with reduced ejection fraction) I50.20 Essential hypertension I10 Hypertension type: essential hypertension
[2024-07-30 13:39] VITALS: BP 142/82
== END 2024-07-30 14:11 | DRG 178 ==
LOC: ED 12:12 → EDINP 15:49 → SUATTDRO 15:49 → 2N 18:17